=== PATIENT | female | born 1975 | race Caucasian/White ===

== ENCOUNTER 2020-06-16 16:13 | Emergency (ER) | payer MEDICAID, SELFPAY ==
[2020-06-16 17:01] VITALS: BP 143/78; PULSE 79; RESP 20; TEMP 37.1; O2SAT 98; BMI 44.8
--- NOTE | 2020-06-16 17:01 | US_ITS ---
EXAMINATION: US ABDOMEN LIMITED CLINICAL INFORMATION: Right upper quadrant pain. COMPARISON: CT abdomen pelvis 05/27/2019, 01/09/2019, 04/16/2017, 05/17/2016 along with multiple other previous study. TECHNIQUE: Real-time imaging of the right upper quadrant limited to the gallbladder and common bile duct. FINDINGS: GALLBLADDER: The patient complained of tenderness over the gallbladder during scanning. The gallbladder is physiologically distended without evidence of stones, sludge, polyps, wall thickening or pericholecystic fluid. COMMON BILE DUCT: Normal in caliber measuring 0.3 cm in diameter. FREE FLUID: None. US/US abdomen limited IMPRESSION: Normal-appearing gallbladder and common bile duct. The patient did complain of tenderness over the gallbladder during scanning.
--- NOTE | 2020-06-16 17:01 | ED.ABDPAIN ---
HPI - Abdominal Pain General Chief Complaint: Abdominal Pain Stated Complaint: abd pain Time Seen by Provider: 06/16/20 16:55 Source: patient Mode of arrival: ambulatory Limitations: no limitations History of Present Illness HPI narrative: Patient with history of gastric sleeve surgery 6 - 7 years ago no significant abdominal complaints otherwise just prior to arrival while bending she noticed pain in mid abdomen and right upper quadrant has stayed with nausea no abdominal distension no history of similar pain in the past. No flank pain no history of kidney stones no fever no chills MD elicited complaint: abdominal pain Pertinent past history: none Onset (ago): hour(s) (Few hours) Pain Consistency: constant Location: epigastric and RUQ Severity: moderate Quality: aching Radiation: RUQ Migration to: no migration Exacerbating factors: nothing Relieving factors: nothing Associated symptoms: nausea Related Data Previous Rx's Medication Instructions Recorded dicyclomine 20 mg PO QID PRN #20 tab 06/16/20 Allergies Allergy/AdvReac Type Severity Reaction Status Date / Time rizatriptan [RIZATRIPTAN] Allergy Intermediate HIVES Unverified 04/12/20 16:11 amoxicillin Allergy Unknown DIFFICULTY Unverified 04/12/20 16:11 BREATHING azithromycin Allergy Unknown DIFFICULTY Unverified 04/12/20 16:11 BREATHING clavulanic acid Allergy Unknown DIFFICULTY Unverified 04/12/20 16:11 BREATHNG hydrocodone Allergy Unknown DIFFICULTY Unverified 04/12/20 16:11 BREATHING levofloxacin Allergy Unknown AGITATION-CAN Unverified 04/12/20 16:11 TAKE IV, BUT NOT PO potassium Allergy Unknown Verified 12/03/15 00:00 sulfamethoxazole Allergy Unknown DIFFICULTY Unverified 04/12/20 16:11 BREATHING, anaphylaxis trimethoprim Allergy Unknown DIFFICULTY Unverified 04/12/20 16:11 BREATHING, anaphylaxis diphenhydramine AdvReac Unknown UNKNOWN Unverified 04/12/20 16:11 [From BENADRYL] From REGLAN Allergy Severe DYSPHORIA Uncoded 04/12/20 16:11 Amoxicillin Trihydrate Allergy Unknown Uncoded 08/18/19 00:00 Hydrocodone-Acetaminophen Allergy Unknown Uncoded 08/18/19 00:00 Hydrocodone-Ibuprofen Allergy Unknown Uncoded 12/03/15 00:00 POTASSIUM CLAVULANATE Allergy Unknown Uncoded 08/18/19 00:00 Sulfamethoxazole Allergy Unknown Uncoded 08/18/19 00:00 Review of Systems Review of Systems REVIEW OF SYSTEMS: Pertinent positives and negatives are stated above in the history. GEN: no fevers, chills, fatigue HEENT: no nasal congestion, sore throat, ear pain NEURO: no headache, dizziness, focal weakness PULM: no cough, shortness of breath CV: no chest pain, palpitations, LE edema ABD: no vomiting, diarrhea : no dysuria, urgency, frequency SKIN: no rash ROS otherwise negative x 10 Physical Exam Vital Signs: Vital Signs: Last Vital Signs Temp 98.7 F 06/16/20 17:01 Pulse 78 06/16/20 20:42 Resp 20 06/16/20 20:42 BP 128/65 06/16/20 20:42 Pulse Ox 97 06/16/20 20:42 Body Mass Index 44.8 Const: General: cooperative, healthy appearing, comfortable and no acute distress Nutritional Appearance: average body habitus Orientation/consciousness: oriented to person, oriented to place and oriented to time Limitations: no limitations HENMT: Mouth: moist mucous membranes Throat: Yes posterior oropharynx normal Eyes: Conjunctivae: conjunctivae normal Sclerae: sclerae normal Neck: Neck: Yes normal visual inspection Resp: Effort & Inspection: normal respiratory effort Auscultation: clear to auscultation bilaterally Cardio: Rate: regular rate Rhythm: regular rhythm Heart sounds: S1 normal heart sound present and S2 normal heart sound present GI: Inspection: Yes normal to inspection Palpation (GI): Soft to palpation, Firmness to palpation present (GI), Tenderness to palpation present (GI) in the epigastrum and in the RUQ and No hepatosplenomegaly present Percussion: Yes normal to percussion Auscultation: normal bowel sounds Rectal Exam - Female: deferred : General: Yes no CVA tenderness Back/Spine/Pelvis: Back: no CVA tenderness Thoracic/Lumbar Spine: thoracic and lumbar spine normal to inspection Skin: General skin exam: no rashes or lesions noted Neuro: General: oriented to person, oriented to place and oriented to time Extrem: General: Yes normal to inspection Psych: Appearance: grossly normal and well kempt MDM - Abdominal Pain MDM Narrative Medical decision making narrative: patient with upper abdominal pain ultrasound was done to rule out cholecystitis which was negative patient's labs are stable urine is negative patient feeling much better now will discharge home on Bentyl for nonspecific abdominal pain Differential Diagnosis Differential diagnosis: Likely abdominal pain, pancreatitis and small bowel obstruction Lab Data Result diagrams: 06/16/20 17:34 06/16/20 17:34 Labs: Lab Results 06/16/20 06/16/20 06/16/20 Range/Units 17:34 17:34 17:34 WBC 13.1 H (4.8-10.8) X10*3/uL RBC 4.59 (4.20-5.50) X10*6/uL Hgb 12.5 (12.0-16.0) g/dl Hct 38.1 (37-47) % MCV 83.0 (80-98) fL MCH 27.2 (27.0-33.0) pg MCHC 32.8 (31.0-35.0) g/dl RDW 13.7 (11.0-16.0) % Plt Count 308 (160-400) X10*3/uL MPV 9.0 L (9.4-12.3) fL Immature Gran % (Auto) 0.5 H (0.0-0.4) % Neut % (Auto) 74.9 H (45-73) % Lymph % (Auto) 16.6 L (20-40) % [place] % (Auto) 5.8 (2-11) % Eos % (Auto) 1.7 (0-4) % Baso % (Auto) 0.5 (0-2) % Lymph # (Auto) 2.2 (1.2-4.9) X10*3/uL [place] # (Auto) 0.8 (0.1-1.2) X10*3/uL Eos # (Auto) 0.2 (0.0-0.4) X10*3/uL Baso # (Auto) 0.1 (0.0-0.2) X10*3/uL Abs Immat Gran (auto) 0.06 H (0.00-0.03) X10*3/uL Absolute Neuts (auto) 9.8 H (2.0-8.3) X10*3/uL Absolute Nucleated RBC 0.000 (0.0-0.012) X10*3/uL Nucleated RBC % (auto) 0.0 (0.0-0.2) /100WBC Hold Blue Top SEE NOTE Sodium 136 (135-145) mmol/L Potassium 4.3 (3.3-5.1) mmol/l Chloride 104 (96-108) mmol/L Carbon Dioxide 24 (22-29) mmol/L Anion Gap 12 (12-20) BUN 11 (9-16) mg/dL Creatinine 0.56 (0.5-1.4) mg/dL Estim Creat Clear Calc 154.9 Estimated GFR > 60 Random Glucose 88 (60-115) mg/dL Calcium 8.5 (8.4-10.2) mg/dL Total Bilirubin 0.2 (0.0-1.0) mg/dL AST 16 (5-31) U/L ALT 20 (0-31) U/L Alkaline Phosphatase 61 (39-117) U/L Total Protein 6.9 (6.5-8.0) g/dL Albumin 4.0 (3.5-5.0) g/dL Lipase 14 (8-78) U/L Urine Color Urine Appearance Urine pH (5.0-8.0) Ur Specific [place] (1.005-1.025) Urine Protein (NEG-TRACE) MG/DL Urine Glucose (UA) (NEG) MG/DL Urine Ketones (NEG) MG/DL Urine Blood (NEG) Urine Nitrite (NEG) Ur Leukocyte Esterase (NEG) 06/16/20 Range/Units 19:41 WBC (4.8-10.8) X10*3/uL RBC (4.20-5.50) X10*6/uL Hgb (12.0-16.0) g/dl Hct (37-47) % MCV (80-98) fL MCH (27.0-33.0) pg MCHC (31.0-35.0) g/dl RDW (11.0-16.0) % Plt Count (160-400) X10*3/uL MPV (9.4-12.3) fL Immature Gran % (Auto) (0.0-0.4) % Neut % (Auto) (45-73) % Lymph % (Auto) (20-40) % [place] % (Auto) (2-11) % Eos % (Auto) (0-4) % Baso % (Auto) (0-2) % Lymph # (Auto) (1.2-4.9) X10*3/uL [place] # (Auto) (0.1-1.2) X10*3/uL Eos # (Auto) (0.0-0.4) X10*3/uL Baso # (Auto) (0.0-0.2) X10*3/uL Abs Immat Gran (auto) (0.00-0.03) X10*3/uL Absolute Neuts (auto) (2.0-8.3) X10*3/uL Absolute Nucleated RBC (0.0-0.012) X10*3/uL Nucleated RBC % (auto) (0.0-0.2) /100WBC Hold Blue Top Sodium (135-145) mmol/L Potassium (3.3-5.1) mmol/l Chloride (96-108) mmol/L Carbon Dioxide (22-29) mmol/L Anion Gap (12-20) BUN (9-16) mg/dL Creatinine (0.5-1.4) mg/dL Estim Creat Clear Calc Estimated GFR Random Glucose (60-115) mg/dL Calcium (8.4-10.2) mg/dL Total Bilirubin (0.0-1.0) mg/dL AST (5-31) U/L ALT (0-31) U/L Alkaline Phosphatase (39-117) U/L Total Protein (6.5-8.0) g/dL Albumin (3.5-5.0) g/dL Lipase (8-78) U/L Urine Color YELLOW Urine Appearance CLEAR Urine pH 6.5 (5.0-8.0) Ur Specific [place] 1.020 (1.005-1.025) Urine Protein NEG (NEG-TRACE) MG/DL Urine Glucose (UA) NEG (NEG) MG/DL Urine Ketones NEG (NEG) MG/DL Urine Blood NEG (NEG) Urine Nitrite NEG (NEG) Ur Leukocyte Esterase NEG (NEG) Discharge Plan Discharge Clinical Impression: Abdominal pain Qualifiers: Abdominal location: upper abdomen, unspecified Qualified Code(s): R10.10 - Upper abdominal pain, unspecified Patient Disposition: Home, Self-Care Instructions: Abdominal Pain (ED) Additional Instructions: drink plenty of fluids. take pain medication as advised Report to the ER if increase in abdominal pain/ vomiting /fever Prescriptions: New dicyclomine 20 mg tablet 20 mg PO QID PRN (Reason: abdominal pain) Qty: 20 RF: 0 Interventions: ED Discharge Assessment Last Done: 06/16/20 20:46 Discharge Date/Time: 06/16/20 20:47 [facility] Past Medical History Medical History (Updated 06/16/20 @ 20:32 by Andrea Doss MD) Asthma PCOS (polycystic ovarian syndrome) Surgical History (Updated 06/16/20 @ 17:07 by Brooke Garibay) History of laparoscopic partial gastrectomy Social History Social History Alcohol intake: never Smoking Status: Never smoker Use of substances other than those prescribed or required for medical reasons: No Advance Directives: Yes Advance Directives Information Provided: Yes Advance Directives on File: No
[2020-06-16 17:46] LABS: MANUAL DIFF FLAG NO
[2020-06-16] MEDS: 0.9 % Sodium Chloride 1,000 ML 999 ML IVCONT (17:46)
[2020-06-16 17:48] LABS: Basophils Absolute Auto 0.1 X10*3/uL (0.0-0.2); Basophils Percent Auto 0.5 % (0-2); Eosinophils Absolute Auto 0.2 X10*3/uL (0.0-0.4); Eosinophils Percent Auto 1.7 % (0-4); Hematocrit 38.1 % (37-47); Hemoglobin 12.5 g/dl (12.0-16.0); Imm Gran Abs Auto 0.06 X10*3/uL (0.00-0.03); Imm Gran Pct Auto 0.5 % (0.0-0.4); Lymphocytes Absolute Auto 2.2 X10*3/uL (1.2-4.9); Lymphocytes Percent Auto 16.6 % (20-40); Mean Corpuscular HGB Conc 32.8 g/dl (31.0-35.0); Mean Corpuscular Hemoglobin 27.2 pg (27.0-33.0); Monocytes Absolute Auto 0.8 X10*3/uL (0.1-1.2); Monocytes Percent Auto 5.8 % (2-11); Neutrophils Absolute Auto 9.8 X10*3/uL (2.0-8.3); Neutrophils Percent Auto 74.9 % (45-73); Platelet Count 308 X10*3/uL (160-400); Red Blood Count 4.59 X10*6/uL (4.20-5.50); Red Cell Distribution Width 13.7 % (11.0-16.0); White Blood Count 13.1 X10*3/uL (4.8-10.8)
[2020-06-16 18:37] VITALS: BP 135/70; PULSE 85; RESP 18; O2SAT 100
[2020-06-16] MEDS: ondansetron HCL 4 MG/2 ML VIAL IVPUSH (18:38)
[2020-06-16] MEDS: Morphine Sulfate 4 MG/ML CARTRIDGE IVPUSH (18:38)
[2020-06-16 18:41] LABS: Alanine Aminotransferase 20 U/L (0-31); Alkaline Phosphatase 61 U/L (39-117); Anion Gap 12 (12-20); Aspartate Amino Transferase 16 U/L (5-31); Bilirubin Total 0.2 mg/dL (0.0-1.0); Blood Urea Nitrogen 11 mg/dL (9-16); Calcium 8.5 mg/dL (8.4-10.2); Carbon Dioxide 24 mmol/L (22-29); Chloride 104 mmol/L (96-108); Creatinine Clr Calc Pharmacy 154.9; Estimated Glomerular Filt Rate > 60; Glucose Random 88 mg/dL (60-115); Lipase 14 U/L (8-78); Potassium 4.3 mmol/l (3.3-5.1); Sodium 136 mmol/L (135-145); Total Protein 6.9 g/dL (6.5-8.0)
[2020-06-16 19:12] VITALS: BP 125/64; PULSE 82; RESP 16; O2SAT 97
--- NOTE | 2020-06-16 19:33 | PC.NURSE ---
Report taken from Magda, jazzy RN resuming care. Pt found awake and alert, CAOx4, speaking full sentences, talking on her phone in bed. Pt ambulating to the bathroom to provide UA. [place] to monitor.
--- NOTE | 2020-06-16 19:50 | PC.NURSE ---
MD at bedside discussing results and plan of care.
[2020-06-16 20:15] LABS: Glucose Urine UA NEG (NEG); Leukocyte Esterase Urine NEG (NEG); Nitrite Urine NEG (NEG); PH 6.5 (5.0-8.0); Urine Blood NEG (NEG); Urine Ketones NEG (NEG); Urine Protein NEG (NEG-TRACE)
[2020-06-16 20:19] LABS: Appearance Urine CLEAR; Color Urine YELLOW
[2020-06-16 20:42] VITALS: BP 128/65; PULSE 78; RESP 20; O2SAT 97
== END 2020-06-16 20:47 | disposition home or self-care (01) ==
PROVIDERS: Emergency Provider Internal Medicine
DX: R10.11 Right upper quadrant pain (principal); Z98.84 Bariatric surgery status; Z79.899 Other long term (current) drug therapy
CPT/HCPCS: 36415; 76705; 80053; 81003; 83690; 85025; 96361; 96374; 96375; 99284; J2270; J2405

== ENCOUNTER 2020-07-11 11:15 | Outpatient (REF) | payer MEDICAID, SELFPAY ==
--- NOTE | 2020-07-11 | US_ITS ---
EXAMINATION: US THYROID CLINICAL INFORMATION: Nontoxic single thyroid nodule. COMPARISON: Ultrasound soft tissue head/neck thyroid dated 08/05/2016 and 02/07/2016. TECHNIQUE: Linear transducer bah-scale and color Doppler examination with attention to the region of the thyroid. FINDINGS: SIZE: Measurements of the thyroid lobes and nodules are given in sagittal, anteroposterior and transverse dimensions respectively. Right Thyroid Lobe: 5.0 x 2.6 x 2.4 cm, volume 16.4 mL. Previously 4.7 x 1.8 x 2.3 cm, volume 10.2 mL. Parenchyma: The gland echotexture is heterogeneous. Thyroid vascularity is normal. Left Thyroid Lobe: 5.6 x 2.7 x 3.1 cm, volume 24.4 mL. Previously 5.3 x 2.1 x 3.0 cm, volume 17 mL. Parenchyma: The gland echotexture is heterogeneous. Thyroid vascularity is normal. Isthmus: 1.2 cm in maximum AP dimension. Previously 1.1 cm. RIGHT THYROID LOBE: There is 1 nodule seen. 1. Location: Middle. Size: 1.4 x 1.4 x 1.1 cm. Previous: New since the previous study. Nodule characteristics: Heterogeneous, isoechoic to hyperechoic periphery and cystic center, smooth margin, no calcification and no intranodular flow. ISTHMUS: No nodules. LEFT THYROID LOBE: No nodules. NODES: No lymphadenopathy is seen in the tissue surrounding the thyroid gland. US/US thyroid IMPRESSION: Enlarged very heterogeneous thyroid gland. Comparison with previous exam from 2015 and 2016 is difficult. The previously identified bilateral inferior thyroid nodules are not appreciated. There is a newly appreciated heterogeneous nodule in the right middle lobe.
== END 2020-07-11 11:16 | disposition home or self-care (01) ==
LOC: HO.HMGCX 11:15
PROVIDERS: PCP Internal Medicine; Visit Provider Internal Medicine
DX: E04.1 Nontoxic single thyroid nodule (principal)
CPT/HCPCS: 76536

== ENCOUNTER 2020-07-24 12:03 | Outpatient (REF) | payer MEDICAID, SELFPAY ==
--- NOTE | 2020-07-24 12:09 | XR_ITS ---
EXAMINATION: LEFT FOREARM 2 VIEWS. LEFT ELBOW 3 VIEWS. CLINICAL INFORMATION: Pain left elbow and left forearm. COMPARISON: None TECHNIQUE: 3 views left elbow and 2 views left forearm. FINDINGS: LEFT ELBOW: There is no visible acute fracture, dislocation or subluxation. No loose bodies or bony erosive changes seen. The soft tissues are normal. LEFT FOREARM: There is no visible acute fracture, dislocation a bony abnormality. The soft tissues are normal. XR/XR elbow LT min 3V IMPRESSION: Unremarkable left elbow exam. Unremarkable left forearm exam.
--- NOTE | 2020-07-24 12:10 | XR_ITS ---
EXAMINATION: LEFT FOREARM 2 VIEWS. LEFT ELBOW 3 VIEWS. CLINICAL INFORMATION: Pain left elbow and left forearm. COMPARISON: None TECHNIQUE: 3 views left elbow and 2 views left forearm. FINDINGS: LEFT ELBOW: There is no visible acute fracture, dislocation or subluxation. No loose bodies or bony erosive changes seen. The soft tissues are normal. LEFT FOREARM: There is no visible acute fracture, dislocation a bony abnormality. The soft tissues are normal. XR/XR forearm LT 2V IMPRESSION: Unremarkable left elbow exam. Unremarkable left forearm exam.
== END 2020-07-24 12:04 | disposition home or self-care (01) ==
LOC: HO.XRAY 12:03
PROVIDERS: Visit Provider General Practice
DX: M25.522 Pain in left elbow (principal)
CPT/HCPCS: 73080; 73090

== ENCOUNTER 2020-09-07 11:30 | Outpatient (RCR) | payer MEDICAID, SELFPAY ==
--- NOTE | 2020-11-06 08:33 | MHC.OT.DC ---
[address] [phone] F: [phone] Occupational Therapy Discharge Note Provider: Porfirio Flowers Diagnosis: left lateral epicondylitis Date of Surgery: Date of Evaluation: 08/22/20 Date of Discharge: Treatments to Date: 6 Cancellations to Date: No Shows to Date: Discharge Status: Recommend MD Follow-up Discharge Summary: Pt REPORTS INC PAIN DUE TO BUMPING HER ELBOW. GOOD TECH WITH THER EX. . INC PAIN AFTER 5 REPS Electronically Signed By: YOUNG REDD OT CHT CLT Reviewed/agree with student documentation: N/A Therapist: Please Sign and return to therapist, thank you for your referral.
== END 2020-12-10 10:35 | disposition other institution (70) ==
LOC: HO.OT 11:30
PROVIDERS: PCP Internal Medicine; Visit Provider Internal Medicine
DX: M77.12 Lateral epicondylitis, left elbow (principal)
CPT/HCPCS: 97033; 97035; 97110; 97140; 97165

== ENCOUNTER 2020-11-14 10:57 | Outpatient (REF) | payer MEDICAID, SELFPAY ==
--- NOTE | ~2020-11-14 | XR_ITS ---
EXAMINATION: XR PELVIS CLINICAL INFORMATION: M54.9 - Dorsalgia, unspecified COMPARISON: 05/27/2019 TECHNIQUE: AP view of the pelvis. FINDINGS: There is minimal osteoarthritis in the hips, characterized by tiny marginal osteophytes and nonuniform joint space narrowing. Minimal osteoarthritis is also noted in the SI joints. Pubic symphysis is normal. There is facet arthropathy in the lower lumbar spine. No acute osseous injuries are identified. No fracture or malalignment. Soft tissues are unremarkable. 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 Facet arthropathy in the lower lumbar spine. No acute osseous findings in the pelvis.
[2020-11-14 12:41] LABS: MANUAL DIFF FLAG NO
[2020-11-14 12:51] LABS: Basophils Absolute Auto 0.1 X10*3/uL (0.0-0.2); Basophils Percent Auto 0.5 % (0-2); Eosinophils Absolute Auto 0.2 X10*3/uL (0.0-0.4); Hematocrit 39.1 % (37-47); Hemoglobin 12.8 g/dl (12.0-16.0); Imm Gran Abs Auto 0.03 X10*3/uL (0.00-0.03); Imm Gran Pct Auto 0.3 % (0.0-0.4); Lymphocytes Percent Auto 17.1 % (20-40); Mean Corpuscular HGB Conc 32.7 g/dl (31.0-35.0); Mean Corpuscular Hemoglobin 27.4 pg (27.0-33.0); Mean Corpuscular Volume 83.5 fL (80-98); Mean Platelet Volume 9.3 fL (9.4-12.3); Monocytes Absolute Auto 0.7 X10*3/uL (0.1-1.2); Monocytes Percent Auto 6.3 % (2-11); Neutrophils Absolute Auto 8.7 X10*3/uL (2.0-8.3); Neutrophils Percent Auto 73.8 % (45-73); Platelet Count 360 X10*3/uL (160-400); Red Blood Count 4.68 X10*6/uL (4.20-5.50); White Blood Count 11.7 X10*3/uL (4.8-10.8)
[2020-11-14 13:12] LABS: Alanine Aminotransferase 17 U/L (0-31); Albumin Level 4.3 g/dL (3.5-5.0); Alkaline Phosphatase 66 U/L (39-117); Anion Gap 16 (12-20); Aspartate Amino Transferase 12 U/L (5-31); Bilirubin Total 0.5 mg/dL (0.0-1.0); Blood Urea Nitrogen 10 mg/dL (9-16); C Reactive Protein 1.71 mg/dL (< or = 0.50); Calcium 9.4 mg/dL (8.4-10.2); Carbon Dioxide 22 mmol/L (22-29); Chloride 104 mmol/L (96-108); Estimated Glomerular Filt Rate > 60; Glucose Random 96 mg/dL (60-115); Potassium 4.2 mmol/L (3.3-5.1); Sodium 138 mmol/L (135-145); Total Protein 7.3 g/dL (6.5-8.0)
[2020-11-14 13:45] LABS: Erythrocyte Sedimentation Rate 13 MM/HR (0-20)
[2020-11-20 14:51] LABS: HLA B27 Negative (Negative)
== END 2020-11-14 10:58 | disposition home or self-care (01) ==
LOC: HO.LAB 10:57
PROVIDERS: PCP Internal Medicine; Visit Provider Student in an Organized Health Care Education/Training Program
DX: Z79.899 Other long term (current) drug therapy (principal); M54.5 Low back pain
CPT/HCPCS: 36415; 72170; 80053; 85025; 85652; 86140; 86812; 99202

== ENCOUNTER → 2020-12-28 13:00 | Outpatient (BNVA) | payer MEDICAID, SELFPAY | PROVIDERS: PCP Internal Medicine; Visit Provider Student in an Organized Health Care Education/Training Program | DX: M54.9 Dorsalgia, unspecified (principal); E28.2 Polycystic ovarian syndrome; J45.909 Unspecified asthma, uncomplicated; Z88.1 Allergy status to other antibiotic agents; Z88.2 Allergy status to sulfonamides; Z88.8 Allergy status to other drugs, medicaments and biological substances | CPT/HCPCS: 99212 ==

== ENCOUNTER → 2021-01-23 10:53 | Outpatient (BNVA) | payer MEDICAID, SELFPAY | PROVIDERS: PCP Internal Medicine; Visit Provider Nurse Practitioner Family | DX: M47.27 Other spondylosis with radiculopathy, lumbosacral region (principal); M53.3 Sacrococcygeal disorders, not elsewhere classified | CPT/HCPCS: 99202 ==

== ENCOUNTER → 2021-03-06 11:17 | Outpatient (BNVA) | payer MEDICAID, SELFPAY | PROVIDERS: PCP Internal Medicine; Visit Provider Nurse Practitioner Family | DX: M47.27 Other spondylosis with radiculopathy, lumbosacral region (principal); M53.3 Sacrococcygeal disorders, not elsewhere classified | CPT/HCPCS: 99212 ==

== ENCOUNTER → 2021-04-03 09:07 | Outpatient (BNVA) | payer MEDICAID, SELFPAY | PROVIDERS: PCP Internal Medicine; Visit Provider Nurse Practitioner Family ==

== ENCOUNTER 2021-04-23 06:35 | Outpatient (REF) | payer MEDICAID, SELFPAY ==
--- NOTE | ~2021-04-23 | FL_ITS ---
EXAMINATION: XR FLUOROSCOPY WITH IMAGES CLINICAL INFORMATION: Sacrococcygeal disorder COMPARISON: None. TECHNIQUE: Fluoroscopy performed by Lacy Jones NP. Fluoroscopy time: 0.2 minutes DAP: 4.6 Gycm2 Images: 2 FINDINGS: Images demonstrate needle placement and contrast injection over the bilateral inferior sacroiliac joints. FL/FL guidance in treatment room IMPRESSION: Fluoroscopy guidance for bilateral sacroiliac joint injection.
== END 2021-04-23 06:36 | disposition home or self-care (01) ==
LOC: HO.RADIR 06:35
PROVIDERS: Visit Provider Anesthesiology
DX: M47.27 Other spondylosis with radiculopathy, lumbosacral region (principal); M53.3 Sacrococcygeal disorders, not elsewhere classified
CPT/HCPCS: 27096; Q9967

== ENCOUNTER → 2021-04-30 09:40 | Outpatient (BNVA) | payer MEDICAID, SELFPAY | PROVIDERS: PCP Internal Medicine; Visit Provider Nurse Practitioner Family | DX: M47.27 Other spondylosis with radiculopathy, lumbosacral region (principal); M53.3 Sacrococcygeal disorders, not elsewhere classified | CPT/HCPCS: 99212 ==

== ENCOUNTER 2021-05-10 13:15 | Outpatient (REF) | payer MEDICAID, SELFPAY ==
--- NOTE | ~2021-05-10 | XR_ITS ---
EXAMINATION: XR ELBOW, LEFT XR HAND/WRIST, LEFT CLINICAL INFORMATION: Pain. COMPARISON: Left elbow and left forearm radiographs dated 07/24/2020 TECHNIQUE: AP, lateral, and oblique views of the left elbow. AP, oblique, lateral, and scaphoid views of the left hand and wrist. FINDINGS: Left elbow: No acute fracture or dislocation. No joint space narrowing or marginal osteophytes. No osseous erosion. No abnormal soft tissue calcification. No significant elbow joint effusion. Left hand and wrist: No acute fracture or dislocation. Normal carpal alignment. No joint space narrowing or marginal osteophytes. No osseous erosion. No abnormal soft tissue calcification. XR/XR hand wrist LT IMPRESSION: Left elbow: Unremarkable examination. Left hand and wrist: Unremarkable examination.
--- NOTE | ~2021-05-10 | XR_ITS ---
EXAMINATION: XR ELBOW, LEFT XR HAND/WRIST, LEFT CLINICAL INFORMATION: Pain. COMPARISON: Left elbow and left forearm radiographs dated 07/24/2020 TECHNIQUE: AP, lateral, and oblique views of the left elbow. AP, oblique, lateral, and scaphoid views of the left hand and wrist. FINDINGS: Left elbow: No acute fracture or dislocation. No joint space narrowing or marginal osteophytes. No osseous erosion. No abnormal soft tissue calcification. No significant elbow joint effusion. Left hand and wrist: No acute fracture or dislocation. Normal carpal alignment. No joint space narrowing or marginal osteophytes. No osseous erosion. No abnormal soft tissue calcification. XR/XR elbow LT 2V IMPRESSION: Left elbow: Unremarkable examination. Left hand and wrist: Unremarkable examination.
== END 2021-05-10 13:16 | disposition home or self-care (01) ==
LOC: HO.XRAY 13:15
PROVIDERS: PCP Internal Medicine; Visit Provider Internal Medicine
DX: M79.642 Pain in left hand (principal); M25.522 Pain in left elbow
CPT/HCPCS: 73070; 73110; 73130

== ENCOUNTER → 2021-05-21 08:21 | Outpatient (BNVA) | payer MEDICAID, SELFPAY | PROVIDERS: PCP Internal Medicine; Visit Provider Nurse Practitioner Family | DX: M53.3 Sacrococcygeal disorders, not elsewhere classified (principal); E28.2 Polycystic ovarian syndrome; J45.909 Unspecified asthma, uncomplicated; Z88.1 Allergy status to other antibiotic agents; Z88.2 Allergy status to sulfonamides; Z88.8 Allergy status to other drugs, medicaments and biological substances; Z90.3 Acquired absence of stomach [part of] | CPT/HCPCS: 99212 ==

== ENCOUNTER → 2021-06-26 09:46 | Outpatient (BNVA) | payer MEDICAID, SELFPAY | PROVIDERS: PCP Internal Medicine; Visit Provider Nurse Practitioner Family ==

== ENCOUNTER 2021-09-03 11:44 | Emergency (ER) | payer MEDICAID, SELFPAY ==
--- NOTE | ~2021-09-03 | XR_ITS ---
EXAMINATION: XR SACRUM AND COCCYX CLINICAL INFORMATION: Fall. Tailbone pain. COMPARISON: Lumbosacral spine radiographs dated 09/29/2019. TECHNIQUE: 2 views of the sacrum and 2 views of the coccyx were obtained. FINDINGS: No acute fracture or subluxation. No lytic or blastic osseous lesion. No abnormal soft tissue calcification. XR/XR sacrum coccyx min 2V IMPRESSION: No acute fracture or subluxation.
--- NOTE | ~2021-09-03 | XR_ITS ---
EXAMINATION: XR HAND, RIGHT CLINICAL INFORMATION: Fall. Right hand pain. COMPARISON: Right finger radiographs dated 02/04/2020. TECHNIQUE: PA, lateral, and oblique views of the right hand. FINDINGS: The bones and soft tissues are normal. No fracture. Alignment is anatomic. Joint spaces are maintained. No erosions or soft tissue calcifications. XR/XR hand RT 2V IMPRESSION: No acute fracture or dislocation.
[2021-09-03 12:22] VITALS: BP 170/74; PULSE 76; RESP 20; TEMP 36.5; O2SAT 97; BMI 46.0
--- NOTE | 2021-09-03 14:07 | ED.FALL ---
HPI - Fall General Chief Complaint: Fall Stated Complaint: Fall Time Seen by Provider: 09/03/21 14:00 Source: patient Mode of arrival: ambulatory Limitations: no limitations History of Present Illness HPI Narrative: 46-year-old female with a past medical history of SI joint dysfunction, spondylosis of lumbosacral spine with radiculopathy, chronic back pain, asthma and PCOS with presenting to the ED with complaints of right hand 2nd digit/index finger pain and coccyx pain after she had a mechanical fall yesterday outside of her house in a driveway on ice. She fell right on her buttocks. She denies head injury loss of consciousness. She denies being on any blood thinners. She denies any headaches, dizziness, nausea/vomiting, change in vision, neck pain/stiffness, worsening back pain at this time or trauma to the back or injury, abdominal pain, weakness, paresthesia, swelling, diarrhea, constipation, or any other symptoms complaints concerns or injuries at this time. She reports she took her prescribed muscle relaxer Tizanidine which she reports is not providing no symptomatic relief. MD complaint: fall Onset (ago): day(s) (Yesterday) Fall from: standing Fall witnessed: yes, by family Place fall occurred: home (Although outside in her driveway) Loss of consciousness: none Prolonged down time: no Symptoms prior to fall: none Context: tripped/slipped Location of injury: buttocks Location of injury - extremities: right: elbow, forearm and hand Severity: moderate Quality: aching Associated symptoms (after fall): denies Related Data Home Medications Medication Instructions Recorded Confirmed cetirizine 10 mg capsule (All Day 10 mg PO DAILY PRN 11/14/20 01/23/21 Allergy (cetirizine)) cholecalciferol (vitamin D3) 125 125 mcg PO DAILY 11/14/20 01/23/21 mcg (5,000 unit) capsule ferrous sulfate 325 mg (65 mg 325 mg PO DAILY 11/14/20 01/23/21 iron) tablet lorazepam 0.5 mg tablet 0.5 mg PO DAILY PRN 11/14/20 01/23/21 vits no.126-ferrous fum tab PO DAILY tab 11/14/20 01/23/21 28 mg iron-folic acid 800 mcg tablet (Classic ) vitamin B complex (B 1 tab PO DAILY 11/14/20 01/23/21 Complex-Vitamin B12) Previous Rx's Medication Instructions Recorded dicyclomine 20 mg tablet 20 mg PO QID PRN #20 tab 06/16/20 diazepam 5 mg tablet 5 mg PO ONCE PRN #2 tab 04/03/21 tizanidine 2 mg tablet 2 mg PO TID PRN #90 tab 06/26/21 docusate sodium 100 mg capsule 100 mg PO BID PRN #14 cap 09/03/21 (Colace) ibuprofen 800 mg tablet 800 mg PO Q8H PRN #14 tab 09/03/21 oxycodone 5 mg tablet 5 mg PO Q6H PRN #14 tab 09/03/21 Allergies Allergy/AdvReac Type Severity Reaction Status Date / Time rizatriptan [RIZATRIPTAN] Allergy Intermediate HIVES Verified 05/21/21 08:25 amoxicillin Allergy Unknown DIFFICULTY Verified 05/21/21 08:25 BREATHING azithromycin Allergy Unknown DIFFICULTY Verified 05/21/21 08:25 BREATHING clavulanic acid Allergy Unknown DIFFICULTY Verified 05/21/21 08:25 BREATHNG hydrocodone Allergy Unknown DIFFICULTY Verified 05/21/21 08:25 BREATHING levofloxacin Allergy Unknown AGITATION-CAN Verified 05/21/21 08:25 TAKE IV, BUT NOT PO potassium Allergy Unknown unknown Verified 05/21/21 08:25 sulfamethoxazole Allergy Unknown DIFFICULTY Verified 05/21/21 08:25 BREATHING, anaphylaxis trimethoprim Allergy Unknown DIFFICULTY Verified 05/21/21 08:25 BREATHING, anaphylaxis diphenhydramine AdvReac Unknown UNKNOWN Verified 05/21/21 08:25 [From BENADRYL] From REGLAN Allergy Severe DYSPHORIA Uncoded 01/23/21 11:25 Amoxicillin Trihydrate Allergy Unknown unknown Uncoded 01/23/21 11:25 Hydrocodone-Acetaminophen Allergy Unknown Unknown Uncoded 01/23/21 11:25 Hydrocodone-Ibuprofen Allergy Unknown Unknown Uncoded 01/23/21 11:25 POTASSIUM CLAVULANATE Allergy Unknown Unknown Uncoded 01/23/21 11:25 Sulfamethoxazole Allergy Unknown Unknown Uncoded 01/23/21 11:25 Review of Systems Review of Systems: Constitutional : No Weight loss, No Fever, No Chills, No Night Sweats, No Fatigue, No Malaise ENT/Mouth : No Hearing loss, No Ear Pain, No Nasal Congestion, No Sinus Pain, No Hoarseness, No sore throat, No Rhinorrhea, No Swallowing Difficulty Eyes: No Eye Pain, No Swelling, No Redness, No Foreign Body, No Discharge, No Vision Changes Cardiovascular : No Chest Pain, No SOB, No Dyspnea on Exertion, No Orthopnea, No Edema, No Palpitations Respiratory : No Cough, No Sputum, No Wheezing, No Smoke Exposure, No Dyspnea Gastrointestinal : No Nausea, No Vomiting, No Diarrhea, No Constipation, No abdominal Pain, No Hematochezia, No Melena Genitourinary : no irregular bleeding, No Dysuria, No Urinary Frequency, No Hematuria, No Urinary Incontinence, No Urgency, No Flank Pain, No Urinary Flow Changes, No Hesitancy Musculoskeletal : + coccyx and right index finger joint pain, No Myalgias, No Joint Swelling Skin : No Skin Lesions, No rash Neuro : No Weakness, No Numbness, No Paresthesias, No Loss of Consciousness, No Dizziness, No Headache Psych : No Anxiety/Panic, No Depression, No SI/HI/AH/VH, No Social Issues, Heme/Lymph: No Bruising, No Bleeding,No Lymphadenopathy Endocrine : No Polyuria, No Polydipsia, No Temperature Intolerance Yes all other systems are reviewed and are negative [facility] Past Medical History Attestation statement: The following information was validated with the patient. Medical History (Updated 09/03/21 @ 14:22 by JESSICA Roy) Asthma PCOS (polycystic ovarian syndrome) Sacroiliac joint dysfunction of right side Surgical History (Updated 11/14/20 @ 11:22 by Mervin Roy MD) History of ankle surgery History of laparoscopic partial gastrectomy Social History Social History (Updated 12/28/20 @ 13:10 by Jose Toth LPN) Alcohol intake: never Patient Tobacco Use Status: Never used Tobacco e-Cigarette/Vaping Use: Never Used Advance Directives: No Advance Directives Information Provided: Yes Physical Exam Vital Signs: Vital Signs: Last Vital Signs Temp 97.7 F 09/03/21 12:22 Pulse 76 09/03/21 12:22 Resp 20 09/03/21 12:22 BP 170/74 H 09/03/21 12:22 Pulse Ox 97 09/03/21 12:22 BMI result Body Mass Index 46.0 vital signs have been reviewed as normal and appeared to be correct. Blood pressure 170/74. Heart rate normal. Respiration rate normal. Temperature normal. Oxygen saturation normal. Appearance: Alert. Oriented X3. No acute distress. Head: Normal external exam. Normocephalic. Atraumatic. No Salas signs noted. No raccoon eyes noted Eyes: PERRLA. EOMI. Conjunctiva and sclera normal. Eyelids normal. ENT: EAC normal. TM's Normal. No septal hematoma noted. No hemotympanum noted. Pharynx normal. Uvula midline. Moist mucous membranes. No trismus noted. No drooling noted. No muffled voice noted. Neck: Normal inspection. Neck supple. FROM. No adenopathy. Thyroid Normal. No meningeal signs. No neck mass noted. Nontender. Patient has no signs of trauma. Patient is neuro intact bilaterally and distally on all 4 extremities. Reflexes intact bilaterally and distally on all 4 extremities. CVS: Normal heart rate and rhythm. Heart sound normal. Pulses normal throughout. No murmurs/rales/gallops. Respiratory: No respiratory distress. Painless inspiration. Breath sounds normal. No wheezes/rales/rhonchi noted. Chest nontender. No accessory muscle usage noted or decreased air movement noted. Abdomen: Soft and nontender. Bowel sounds normal in all 4 quadrants. No distention noted. No organomegaly noted. No visible injury noted. Back: No CVA tenderness. Full range of motion noted. Nontender. Patient has no signs of trauma. Patient is neuro intact bilaterally and distally on all 4 extremities. Reflexes intact bilaterally and distally on all 4 extremities. No rashes/lesion/induration/fluctuance or signs of infection noted. No step-offs or deformities noted. Coccyx: To the coccyx area patient has ecchymosis noted and some tenderness to palpation otherwise no obvious deformities and no abrasions/lacerations or signs of infection noted. No hematomas noted. Skin: Skin warm and dry. Normal skin color. Normal skin turgor. No rashes/lesions/lacerations noted. Extremities: Patient mild tenderness palpation to the right index finger with mild soft tissue swelling no obvious deformities and no obvious ligamentous or tendon injury noted. She does have full range of motion of right hand all fingers and wrist joint along with elbow joint. No obviously ligamentous injury noted to wrist or elbow joint. Otherwise all other extremities exhibit normal range of motion and nontender. Neuro: Oriented X 3. No motor deficit. No sensory deficit. Reflexes normal. Normal steady gait. No focal neuro deficits noted. Vascular: + radial pulses/+ 2 distal pedal pulses/+2 dorsalis pedis b/l. Normal cap refill. No cyanosis noted to upper extremity nails and lower extremity toes nails. Course Course Course Narrative: 14pm - 46-year-old female with a past medical history of SI joint dysfunction, spondylosis of lumbosacral spine with radiculopathy, chronic back pain, asthma and PCOS with presenting to the ED with complaints of right hand 2nd digit/index finger pain and coccyx pain after she had a mechanical fall yesterday outside of her house in a driveway on ice. She fell right on her buttocks. She denies head injury loss of consciousness. She denies being on any blood thinners. X-ray of hand and sacrum/coccyx obtain at this time. Will provide 100 mg of p.o. Motrin and 5 mg of p.o. oxycodone and re-evaluate. Reevaluation(s) Reevaluation #1: X-rays negative. Will DC home with symptomatic treatment instructions return if any new or worsening symptoms to follow up with primary care provider. Patient understands agrees with this plan. Time: 14:26 MDM - Fall Medical Records Attestation: I reviewed the patient's medical records. Imaging Data Right hand and coccyx/sacrum x-rays: Attestation: I personally reviewed and interpreted this imaging study as follows: Radiologist's impression: FINDINGS: No acute fracture or subluxation. No lytic or blastic osseous lesion. No abnormal soft tissue calcification. XR/XR sacrum coccyx min 2V IMPRESSION: No acute fracture or subluxation. FINDINGS: The bones and soft tissues are normal. No fracture. Alignment is anatomic. Joint spaces are maintained. No erosions or soft tissue calcifications.? XR/XR hand RT 2V IMPRESSION: No acute fracture or dislocation. Discharge Plan Discharge Clinical Impression: Fall, Sprain of hand, right, Coccyx sprain, Coccyx contusion Patient Disposition: Home, Self-Care Instructions: Sprain (ED), Contusion in Adults (ED), Fall Prevention (ED) Prescriptions: New oxycodone 5 mg tablet 5 mg PO Q6H PRN (Reason: pain) Qty: 14 0RF Rx Instructions: Patient may partially fill upon patient request docusate sodium [Colace] 100 mg capsule 100 mg PO BID PRN (Reason: Constipation) Qty: 14 0RF ibuprofen 800 mg tablet 800 mg PO Q8H PRN (Reason: pain) Qty: 14 0RF No Action dicyclomine 20 mg tablet 20 mg PO QID PRN (Reason: abdominal pain) Qty: 20 0RF lorazepam 0.5 mg tablet 0.5 mg PO DAILY PRN0RF vitamin B complex [B Complex-Vitamin B12] Tablet 1 tab PO DAILY 0RF cholecalciferol (vitamin D3) 125 mcg (5,000 unit) capsule 125 mcg PO DAILY 0RF ferrous sulfate 325 mg (65 mg iron) tablet 325 mg PO DAILY 0RF All Day Allergy (cetirizine) 10 mg capsule 10 mg PO DAILY PRN0RF Classic 28 mg iron- 800 mcg tablet PO DAILY 0RF diazepam 5 mg tablet 5 mg PO ONCE PRN (Reason: sleep) Qty: 2 0RF Rx Instructions: take 1-2 tabs, one to two hours prior to the procedure. Be sure to have someone drive you to and from the procedure, as this medication is sedating tizanidine 2 mg tablet 2 mg PO TID PRN (Reason: muscle spasticity) Qty: 90 3RF Rx Instructions: May increase to 4 mg TID if needed Referrals: Porfirio Goodman MD [Primary Care Provider] - 2 days Stand Alone Forms: Work/School Release Print Language: Ethiopian
[2021-09-03] MEDS: Ibuprofen 800 MG TABLET PO (14:32)
[2021-09-03] MEDS: oxyCODONE HCl Immed Release 5 MG TABLET PO (14:33)
== END 2021-09-03 14:37 | disposition home or self-care (01) ==
PROVIDERS: Emergency Provider Emergency Medicine; PCP Internal Medicine
DX: S63.91XA Sprain of unspecified part of right wrist and hand, initial encounter (principal); S33.8XXA Sprain of other parts of lumbar spine and pelvis, initial encounter; M53.3 Sacrococcygeal disorders, not elsewhere classified; W01.0XXA Fall on same level from slipping, tripping and stumbling without subsequent striking against object, initial encounter; Y93.9 Activity, unspecified; Y92.007 Garden or yard of unspecified non-institutional (private) residence as the place of occurrence of the external cause; Y99.9 Unspecified external cause status; Z79.899 Other long term (current) drug therapy
CPT/HCPCS: 72220; 73120; 99283; 99284

== ENCOUNTER → 2022-01-14 10:16 | Outpatient (BNVA) | payer MEDICAID, SELFPAY | PROVIDERS: PCP Internal Medicine; Visit Provider Nurse Practitioner Family | DX: M53.3 Sacrococcygeal disorders, not elsewhere classified (principal); M62.838 Other muscle spasm | CPT/HCPCS: 99212 ==

== ENCOUNTER 2022-02-06 12:16 | Outpatient (REF) | payer MEDICAID, SELFPAY ==
--- NOTE | ~2022-02-06 | XR_ITS ---
EXAMINATION: XR FOOT, RIGHT CLINICAL INFORMATION: Second toe pain. COMPARISON: None. TECHNIQUE: AP, lateral, and oblique views of the right foot. FINDINGS: There is no bony abnormality involving the 1st through 5th toes. The soft tissues are normal. The ankle mortise and subtalar joints are normal. There is a small retrocalcaneal enthesophyte. There is dorsal intertarsal spurring. XR/XR foot RT min 3V IMPRESSION: Small retrocalcaneal enthesophyte. No visible acute fracture or dislocation seen. There is minimal distal dorsal foot soft tissue swelling.
== END 2022-02-06 12:17 | disposition home or self-care (01) ==
LOC: HO.XRAY 12:16
PROVIDERS: PCP Internal Medicine; Visit Provider Internal Medicine
DX: M79.674 Pain in right toe(s) (principal)
CPT/HCPCS: 73630

== ENCOUNTER 2022-02-12 20:13 | Emergency (ER) | payer MEDICAID, SELFPAY ==
[2022-02-12 20:54] VITALS: BP 156/70; PULSE 82; RESP 18; TEMP 36.6; O2SAT 97; BMI 46.0
--- NOTE | 2022-02-13 02:23 | ED.LOWEXIN ---
HPI - Extremity Injury (Lower) General Chief Complaint: Extremity Injury, Lower Stated Complaint: foot inj Time Seen by Provider: 02/13/22 02:17 Source: patient Mode of arrival: ambulatory Limitations: no limitations History of Present Illness HPI Narrative: Patient comes to the emergency room complaining 3 weeks right-sided toe pain. Patient states that approximately 3 weeks ago she bumped her foot against her foot and then she has been having toe pain. One week ago, patient had an x-ray done, shows no bony abnormalities. Related Data Home Medications Medication Instructions Recorded Confirmed cetirizine 10 mg capsule (All Day 10 mg PO DAILY PRN 11/14/20 01/23/21 Allergy (cetirizine)) cholecalciferol (vitamin D3) 125 125 mcg PO DAILY 11/14/20 01/23/21 mcg (5,000 unit) capsule ferrous sulfate 325 mg (65 mg 325 mg PO DAILY 11/14/20 01/23/21 iron) tablet lorazepam 0.5 mg tablet 0.5 mg PO DAILY PRN 11/14/20 01/23/21 vits no.126-ferrous fum tab PO DAILY 11/14/20 01/23/21 28 mg iron-folic acid 800 mcg tablet (Classic ) vitamin B complex (B 1 tab PO DAILY 11/14/20 01/23/21 Complex-Vitamin B12 tablet) albuterol sulfate 90 mcg/actuation 2 puff PO Q4-6H PRN 01/14/22 aerosol inhaler (ProAir HFA) cholecalciferol (vitamin D3) 125 125 mcg PO DAILY 01/14/22 mcg (5,000 unit) tablet (Vitamin D3) meloxicam 15 mg tablet 15 mg PO DAILY 01/14/22 omeprazole 20 mg capsule,delayed 20 mg PO DAILY 01/14/22 release Previous Rx's Medication Instructions Recorded dicyclomine 20 mg tablet 20 mg PO QID PRN abdominal pain 06/16/20 #20 tabs diazepam 5 mg tablet 5 mg PO ONCE PRN sleep #2 tabs 04/03/21 docusate sodium 100 mg capsule 100 mg PO BID PRN Constipation #14 09/03/21 (Colace) caps ibuprofen 800 mg tablet 800 mg PO Q8H PRN pain #14 tabs 09/03/21 methocarbamol 750 mg tablet 750 mg PO QID PRN muscle 01/20/22 spasticity 30 days #120 tabs ibuprofen 600 mg tablet 600 mg PO TID PRN pain #14 tabs 02/13/22 Allergies Allergy/AdvReac Type Severity Reaction Status Date / Time rizatriptan [RIZATRIPTAN] Allergy Intermediate HIVES Verified 01/14/22 10:23 amoxicillin Allergy Unknown DIFFICULTY Verified 01/14/22 10:23 BREATHING azithromycin Allergy Unknown DIFFICULTY Verified 01/14/22 10:23 BREATHING clavulanic acid Allergy Unknown DIFFICULTY Verified 01/14/22 10:23 BREATHNG hydrocodone Allergy Unknown DIFFICULTY Verified 01/14/22 10:23 BREATHING levofloxacin Allergy Unknown AGITATION-CAN Verified 01/14/22 10:23 TAKE IV, BUT NOT PO potassium Allergy Unknown unknown Verified 01/14/22 10:23 sulfamethoxazole Allergy Unknown DIFFICULTY Verified 01/14/22 10:23 BREATHING, anaphylaxis trimethoprim Allergy Unknown DIFFICULTY Verified 01/14/22 10:23 BREATHING, anaphylaxis diphenhydramine AdvReac Unknown UNKNOWN Verified 01/14/22 10:23 [From BENADRYL] From REGLAN Allergy Severe DYSPHORIA Uncoded 01/23/21 11:25 Amoxicillin Trihydrate Allergy Unknown unknown Uncoded 01/23/21 11:25 Hydrocodone-Acetaminophen Allergy Unknown Unknown Uncoded 01/23/21 11:25 Hydrocodone-Ibuprofen Allergy Unknown Unknown Uncoded 01/23/21 11:25 POTASSIUM CLAVULANATE Allergy Unknown Unknown Uncoded 01/23/21 11:25 Sulfamethoxazole Allergy Unknown Unknown Uncoded 01/23/21 11:25 Review of Systems Review of Systems: Constitutional : No Weight loss, No Fever, No Chills, No Night Sweats, No Fatigue, No Malaise ENT/Mouth : No Hearing loss, No Ear Pain, No Nasal Congestion, No Sinus Pain, No Hoarseness, No sore throat, No Rhinorrhea, No Swallowing Difficulty Eyes: No Eye Pain, No Swelling, No Redness, No Foreign Body, No Discharge, No Vision Changes Cardiovascular : No Chest Pain, No SOB, No Dyspnea on Exertion, No Orthopnea, No Edema, No Palpitations Respiratory : No Cough, No Sputum, No Wheezing, No Smoke Exposure, No Dyspnea Gastrointestinal : No Nausea, No Vomiting, No Diarrhea, No Constipation, No abdominal Pain, No Hematochezia, No Melena Genitourinary : no irregular bleeding, No Dysuria, No Urinary Frequency, No Hematuria, No Urinary Incontinence, No Urgency, No Flank Pain, No Urinary Flow Changes, No Hesitancy Musculoskeletal : No joint pain, No Myalgias, No Joint Swelling, complaining of right toe pain Skin : No Skin Lesions, No rash Neuro : No Weakness, No Numbness, No Paresthesias, No Loss of Consciousness, No Dizziness, No Headache Psych : No Anxiety/Panic, No Depression, No SI/HI/AH/VH, No Social Issues, Heme/Lymph: No Bruising, No Bleeding,No Lymphadenopathy Endocrine : No Polyuria, No Polydipsia, No Temperature Intolerance COUNT INCLUDES THE [facility] Past Medical History Medical History Asthma PCOS (polycystic ovarian syndrome) Sacroiliac joint dysfunction of right side Surgical History History of ankle surgery History of laparoscopic partial gastrectomy Social History Social History (Updated 12/28/20 @ 13:10 by Jose Toth LPN) Alcohol intake: never Patient Tobacco Use Status: Never used Tobacco e-Cigarette/Vaping Use: Never Used Advance Directives: No Physical Exam Vital Signs: Vital Signs: Last Vital Signs Temp 97.9 F 02/12/22 20:54 Pulse 82 02/12/22 20:54 Resp 18 02/12/22 20:54 BP 156/70 H 02/12/22 20:54 Pulse Ox 97 02/12/22 20:54 O2 Del Method 02/12/22 20:54 BMI result Body Mass Index 46.0 Const: Other: Appearance: Alert. Oriented X3. No acute distress. Eyes: Pupils equal, round and reactive to light. ENT: Pharynx normal. Neck: Normal inspection. Neck supple. No lymph nodes noted. No crepitus CVS: Normal heart rate and rhythm. Pulses normal. Normal S1 and S2 Respiratory: No respiratory distress. Breath sounds normal. No Wheezing. No rales Abdomen: Soft and nontender. No rigidity. No distention. Skin: Skin warm and dry. Normal skin color. Normal skin turgor. Extremities: No lower extremity edema. No Lacerations. No Rash. Toes look within normal limits, normal size, normal color Neuro: Oriented X 3. No motor deficit. No sensory deficit. Moving all extremities. No slurred speech. CN 2 through 12 grossly intact Psych: calm, cooperative, normal affect Course Course Course Narrative: I discussed the x-ray findings with the patient, no acute bony findings. MDM - Extremity Injury (Lower) Imaging Data Toe pain: Radiologist's impression: FINDINGS: There is no bony abnormality involving the 1st through 5th toes. The soft tissues are normal. The ankle mortise and subtalar joints are normal. There is a small retrocalcaneal enthesophyte. There is dorsal intertarsal spurring.? XR/XR foot RT min 3V IMPRESSION: Small retrocalcaneal enthesophyte. No visible acute fracture or dislocation seen. There is minimal distal dorsal foot soft tissue swelling. Discharge Plan Discharge Clinical Impression: Contusion, toe Patient Disposition: Home, Self-Care Instructions: Foot Contusion (ED) Additional Instructions: Please follow-up with your primary care physician tomorrow. If you have any worsening or new symptoms, please return to the emergency room or call 911 Prescriptions: New ibuprofen 600 mg tablet 600 mg PO TID PRN (Reason: pain) Qty: 14 0RF No Action methocarbamol 750 mg tablet 750 mg PO QID PRN (Reason: muscle spasticity) 30 Days Qty: 120 0RF dicyclomine 20 mg tablet 20 mg PO QID PRN (Reason: abdominal pain) Qty: 20 0RF docusate sodium [Colace] 100 mg capsule 100 mg PO BID PRN (Reason: Constipation) Qty: 14 0RF ibuprofen 800 mg tablet 800 mg PO Q8H PRN (Reason: pain) Qty: 14 0RF lorazepam 0.5 mg tablet 0.5 mg PO DAILY PRN vitamin B complex [B Complex-Vitamin B12] Tablet 1 tab PO DAILY cholecalciferol (vitamin D3) 125 mcg (5,000 unit) capsule 125 mcg PO DAILY ferrous sulfate 325 mg (65 mg iron) tablet 325 mg PO DAILY All Day Allergy (cetirizine) 10 mg capsule 10 mg PO DAILY PRN Classic 28 mg iron- 800 mcg tablet PO DAILY diazepam 5 mg tablet 5 mg PO ONCE PRN (Reason: sleep) Qty: 2 0RF Rx Instructions: take 1-2 tabs, one to two hours prior to the procedure. Be sure to have someone drive you to and from the procedure, as this medication is sedating albuterol sulfate [ProAir HFA] 90 mcg/actuation HFA aerosol inhaler 2 puff PO Q4-6H PRN omeprazole 20 mg capsule,delayed release(DR/EC) 20 mg PO DAILY meloxicam 15 mg tablet 15 mg PO DAILY cholecalciferol (vitamin D3) [Vitamin D3] 125 mcg (5,000 unit) tablet 125 mcg PO DAILY
== END 2022-02-13 02:56 | disposition home or self-care (01) ==
PROVIDERS: Emergency Provider Emergency Medicine
DX: S90.121A Contusion of right lesser toe(s) without damage to nail, initial encounter (principal); W51.XXXA Accidental striking against or bumped into by another person, initial encounter; Y93.9 Activity, unspecified; Y92.9 Unspecified place or not applicable; Y99.9 Unspecified external cause status
CPT/HCPCS: 99283; 99284

== ENCOUNTER 2022-02-19 01:43 | Emergency (ER) | payer MEDICAID, SELFPAY ==
--- NOTE | ~2022-02-19 | XR_ITS ---
EXAMINATION: XR CHEST CLINICAL INFORMATION: Cough. COMPARISON: 11/27/2017 chest radiographs. TECHNIQUE: Frontal view of the chest was obtained. FINDINGS: The lungs are clear. Incidental azygos fissure. The heart and mediastinal structures are unremarkable. XR/XR chest 1V IMPRESSION: No acute cardiopulmonary process.
[2022-02-19 02:04] VITALS: BP 188/97; PULSE 87; TEMP 36.3; O2SAT 97; BMI 47.0
[2022-02-19 02:22] LABS: MANUAL DIFF FLAG NO
[2022-02-19 02:23] LABS: Basophils Absolute Auto 0.1 X10*3/uL (0.0-0.2); Basophils Percent Auto 0.5 % (0-2); Eosinophils Absolute Auto 0.3 X10*3/uL (0.0-0.4); Eosinophils Percent Auto 2.3 % (0-4); Hematocrit 34.9 % (37.0-47.0); Hemoglobin 11.2 g/dl (12.0-16.0); Imm Gran Abs Auto 0.06 X10*3/uL (0.00-0.03); Imm Gran Pct Auto 0.4 % (0.0-0.4); Lymphocytes Absolute Auto 2.3 X10*3/uL (1.2-4.9); Lymphocytes Percent Auto 15.9 % (20-40); Mean Corpuscular HGB Conc 32.1 g/dl (31.0-35.0); Mean Corpuscular Hemoglobin 25.7 pg (27.0-33.0); Mean Corpuscular Volume 80.2 fL (80.0-98.0); Mean Platelet Volume 8.8 fL (9.4-12.3); Monocytes Absolute Auto 0.8 X10*3/uL (0.1-1.2); Monocytes Percent Auto 5.5 % (2-11); Neutrophils Percent Auto 75.4 % (45-73); Platelet Count 348 X10*3/uL (160-400); Red Blood Count 4.35 X10*6/uL (4.20-5.50); Red Cell Distribution Width 13.6 % (11.0-16.0); White Blood Count 14.6 X10*3/uL (4.8-10.8)
[2022-02-19 02:53] LABS: Anion Gap 13 (12-20); Blood Urea Nitrogen 14 mg/dL (9-16); Calcium 8.8 mg/dL (8.4-10.2); Carbon Dioxide 23 mmol/L (22-29); Chloride 109 mmol/L (96-108); Creatinine Clr Calc Pharmacy 135.9; Estimated Glomerular Filt Rate > 60; Glucose Random 137 mg/dL (60-115); Potassium 3.7 mmol/L (3.3-5.1); Sodium 141 mmol/L (135-145)
[2022-02-19 06:04] VITALS: BP 160/73; PULSE 88; TEMP 37.1; O2SAT 96
--- NOTE | 2022-02-19 08:33 | ED_ITS ---
HPI - Nausea/Vomiting/Diarrhea General Chief complaint: Nausea/Vomiting/Diarrhea Stated complaint: cough, vomitting Time Seen by Provider: 02/19/22 08:06 Source: patient Mode of arrival: ambulatory History of Present Illness HPI Narrative: 46-year-old female with a past medical history of asthma PCOS, gastric sleeve '15, presenting to the ED complaining dry cough, sore throat, nausea, emesis, myalgias/fatigue since yesterday. Admits neighbor tested positive for COVID-19 yesterday. Reports 1 episode of bloody streaked emesis which patient suspects from hx gastric sleeve. Denies fever, ear pain, CP, SOB, abdominal pain, diarrhea, pedal edema, recent travel MD elicited complaint: nausea and vomiting Onset (ago): day(s) Related Data Home Medications Medication Instructions Recorded Confirmed cetirizine 10 mg capsule (All Day 10 mg PO DAILY PRN 11/14/20 01/23/21 Allergy (cetirizine)) cholecalciferol (vitamin D3) 125 125 mcg PO DAILY 11/14/20 01/23/21 mcg (5,000 unit) capsule ferrous sulfate 325 mg (65 mg 325 mg PO DAILY 11/14/20 01/23/21 iron) tablet lorazepam 0.5 mg tablet 0.5 mg PO DAILY PRN 11/14/20 01/23/21 vits no.126-ferrous fum tab PO DAILY 11/14/20 01/23/21 28 mg iron-folic acid 800 mcg tablet (Classic ) vitamin B complex (B 1 tab PO DAILY 11/14/20 01/23/21 Complex-Vitamin B12 tablet) albuterol sulfate 90 mcg/actuation 2 puff PO Q4-6H PRN 01/14/22 aerosol inhaler (ProAir HFA) cholecalciferol (vitamin D3) 125 125 mcg PO DAILY 01/14/22 mcg (5,000 unit) tablet (Vitamin D3) meloxicam 15 mg tablet 15 mg PO DAILY 01/14/22 omeprazole 20 mg capsule,delayed 20 mg PO DAILY 01/14/22 release Previous Rx's Medication Instructions Recorded dicyclomine 20 mg tablet 20 mg PO QID PRN abdominal pain 06/16/20 #20 tabs diazepam 5 mg tablet 5 mg PO ONCE PRN sleep #2 tabs 09/08/21 docusate sodium 100 mg capsule 100 mg PO BID PRN Constipation #14 09/03/21 (Colace) caps ibuprofen 800 mg tablet 800 mg PO Q8H PRN pain #14 tabs 09/03/21 methocarbamol 750 mg tablet 750 mg PO QID PRN muscle 01/20/22 spasticity 30 days #120 tabs ibuprofen 600 mg tablet 600 mg PO TID PRN pain #14 tabs 02/13/22 Allergies Allergy/AdvReac Type Severity Reaction Status Date / Time rizatriptan [RIZATRIPTAN] Allergy Intermediate HIVES Verified 02/19/22 02:08 amoxicillin Allergy Unknown DIFFICULTY Verified 02/19/22 02:08 BREATHING azithromycin Allergy Unknown DIFFICULTY Verified 02/19/22 02:08 BREATHING clavulanic acid Allergy Unknown DIFFICULTY Verified 02/19/22 02:08 BREATHNG hydrocodone Allergy Unknown DIFFICULTY Verified 02/19/22 02:08 BREATHING levofloxacin Allergy Unknown AGITATION-CAN Verified 02/19/22 02:08 TAKE IV, BUT NOT PO potassium Allergy Unknown unknown Verified 02/19/22 02:08 sulfamethoxazole Allergy Unknown DIFFICULTY Verified 02/19/22 02:08 BREATHING, anaphylaxis trimethoprim Allergy Unknown DIFFICULTY Verified 02/19/22 02:08 BREATHING, anaphylaxis diphenhydramine AdvReac Unknown UNKNOWN Verified 02/19/22 02:08 [From BENADRYL] From REGLAN Allergy Severe DYSPHORIA Uncoded 02/19/22 02:08 Amoxicillin Trihydrate Allergy Unknown unknown Uncoded 02/19/22 02:08 Hydrocodone-Acetaminophen Allergy Unknown Unknown Uncoded 02/19/22 02:08 Hydrocodone-Ibuprofen Allergy Unknown Unknown Uncoded 02/19/22 02:08 POTASSIUM CLAVULANATE Allergy Unknown Unknown Uncoded 02/19/22 02:08 Sulfamethoxazole Allergy Unknown Unknown Uncoded 02/19/22 02:08 Review of Systems Review of Systems: Constitutional: No Fever, No Chills, No Night Sweats, + Fatigue, + Malaise ENT/Mouth: No Hearing loss, No Ear Pain, + Nasal Congestion, No Sinus Pain, No Hoarseness, + sore throat, No Rhinorrhea, No Swallowing Difficulty Eyes: No Eye Pain, No Swelling, No Redness, No Vision Changes Cardiovascular: No Chest Pain, No SOB, No Dyspnea on Exertion, No Orthopnea, No Edema, No Palpitations Respiratory: + Cough, No Sputum, No Wheezing, No Dyspnea Gastrointestinal: + Nausea, + Vomiting, No Diarrhea, No Constipation, No Abdominal pain Genitourinary: No Dysuria, No Urinary Frequency, No Hematuria, No Flank Pain, No Urinary Flow Changes, No Hesitancy Musculoskeletal: No joint pain, No Myalgias, No Joint Swelling Skin: No Skin Lesions, No rash Neuro: No Weakness, No Numbness, No Paresthesias, No Loss of Consciousness, No Dizziness, No Headache Yes all other systems are reviewed and are negative Constitutional: Constitutional: Reports as per [facility] Past Medical History Attestation statement: The following information was validated with the patient. Medical History Asthma PCOS (polycystic ovarian syndrome) Sacroiliac joint dysfunction of right side Surgical History History of ankle surgery History of laparoscopic partial gastrectomy Social History Social History (Updated 12/28/20 @ 13:10 by Jose Toth LPN) Alcohol intake: never Patient Tobacco Use Status: Never used Tobacco e-Cigarette/Vaping Use: Never Used Advance Directives: No Advance Directives Information Provided: Yes Physical Exam Vital Signs: Vital Signs: Last Vital Signs Temp 98.7 F 02/19/22 06:04 Pulse 88 02/19/22 06:04 BP 160/73 H 02/19/22 06:04 Pulse Ox 96 02/19/22 06:04 O2 Del Method 02/19/22 06:04 BMI result Body Mass Index 47.0 Const: General: cooperative, healthy appearing, no acute distress, alert and awake Orientation/consciousness: patient oriented x3 Limitations: no limitations HEENT: Head: Yes normal to inspection and Yes atraumatic Ears: hearing grossly normal bilaterally, external ears normal, TM's normal bilaterally and mastoids normal General nose exam: Normal external nose present Face and sinus: Yes normal facial exam Mouth: Normal oral and palatal mucosa present Throat: Yes posterior oropharynx normal, Yes tonsils normal, Yes uvula midline and No uvular edema Eyes: General: appearance normal, both eyes and all related structures EOM: EOMs intact bilaterally Neck: Neck: Yes normal visual inspection and Yes no meningeal signs Resp: Effort & Inspection: normal respiratory effort and no respiratory distress Auscultation: clear to auscultation bilaterally, no crackles, no rales, no rhonchi and no wheezes Cardio: Rate: regular rate Heart sounds: S1 normal heart sound present and S2 normal heart sound present GI: Inspection: Yes normal to inspection Palpation (GI): Soft to palpation, nontender, no guarding and not rigid : General: Yes no CVA tenderness Back/Spine/Pelvis: Back: no CVA tenderness Skin: Rashes: no rashes Wounds: no wounds Neuro: General: patient oriented x3, tone normal and no meningeal signs Gait exam (Neuro): Normal gait present Extrem: General: Yes normal to inspection, Yes no pedal edema and Yes no calf tenderness Course Course Course Narrative: -1023--mild leukocytosis of 14.6 likely reactive for nausea/vomiting. H&H chronically low. Labs otherwise unremarkable -patient is COVID-19 positive XR chest 1V IMPRESSION: No acute cardiopulmonary process. ? Results discussed with patient, discussed Paxil bid or medical antibody referral which patient was not agreeable to. Discussed worrisome signs and symptoms and strict return precautions, and when to return to the emergency department. They verbalized understanding and feel safe for discharge at this time. MDM - Nausea/Vomiting/Diarrhea MDM Narrative Medical decision making narrative: 46-year-old female with a past medical history of asthma PCOS, gastric sleeve '15, presenting to the ED complaining dry cough, sore throat, nausea, emesis, myalgias/fatigue since yesterday. On exam vital signs stable, NAD, nontoxic appearing CTA, abdomen soft and nontender. If concern for viral illness vs gastroenteritis vs bronchitis. Rule out pneumonia. Lower suspicion for ACS, Ened[place]-Mondragon, GI bleed, or PE Plan: Labs, CXR, COVID-19 testing, IVF, p.o. challenge Differential Diagnosis Differential diagnosis: Likely food poisoning, gastroenteritis and dehydration Medical Records Attestation: I reviewed the patient's medical records. Lab Data Attestation: I reviewed the patient's lab results. Result diagrams: 02/19/22 02:18 02/19/22 02:18 Labs: Lab Results 02/19/22 02/19/22 02/19/22 Range/Units 02:18 02:18 09:08 WBC 14.6 H (4.8-10.8) X10*3/uL RBC 4.35 (4.20-5.50) X10*6/uL Hgb 11.2 L (12.0-16.0) g/dl Hct 34.9 L (37.0-47.0) % MCV 80.2 (80.0-98.0) fL MCH 25.7 L (27.0-33.0) pg MCHC 32.1 (31.0-35.0) g/dl RDW 13.6 (11.0-16.0) % Plt Count 348 (160-400) X10*3/uL MPV 8.8 L (9.4-12.3) fL Immature Gran % (Auto) 0.4 (0.0-0.4) % Neut % (Auto) 75.4 H (45-73) % Lymph % (Auto) 15.9 L (20-40) % Pike % (Auto) 5.5 (2-11) % Eos % (Auto) 2.3 (0-4) % Baso % (Auto) 0.5 (0-2) % Lymph # (Auto) 2.3 (1.2-4.9) X10*3/uL Pike # (Auto) 0.8 (0.1-1.2) X10*3/uL Eos # (Auto) 0.3 (0.0-0.4) X10*3/uL Baso # (Auto) 0.1 (0.0-0.2) X10*3/uL Abs Immat Gran (auto) 0.06 H (0.00-0.03) X10*3/uL Absolute Neuts (auto) 11.0 H (2.0-8.3) x10*3/uL Absolute Nucleated RBC 0.000 (0.0-0.012) X10*3/uL Nucleated RBC % (auto) 0.0 (0.0-0.2) /100WBC Sodium 141 (135-145) mmol/L Potassium 3.7 (3.3-5.1) mmol/L Chloride 109 H (96-108) mmol/L Carbon Dioxide 23 (22-29) mmol/L Anion Gap 13 (12-20) BUN 14 (9-16) mg/dL Creatinine 0.65 (0.5-1.4) mg/dL Estim Creat Clear Calc 135.9 Estimated GFR > 60 Random Glucose 137 H (60-115) mg/dL Calcium 8.8 D (8.4-10.2) mg/dL Magnesium 1.9 (1.6-2.6) mg/dL Total Bilirubin < 0.2 (0.0-1.0) mg/dL Direct Bilirubin < 0.2 (0.0-0.5) mg/dL AST 10 (5-31) U/L ALT 15 (0-31) U/L Alkaline Phosphatase 77 (39-117) U/L Total Protein 6.8 (6.5-8.0) g/dL Albumin 4.0 (3.5-5.0) g/dL Lipase 15 (8-78) U/L COVID-19 (KEO) Positive A (Negative) COVID-19 Clin Com See Note Discharge Plan Discharge Clinical Impression: COVID-19 Patient Disposition: Home, Self-Care Instructions: COVID-19 (Coronavirus Disease 2019) (ED) Additional Instructions: At this time you will be okay for discharge. Please self isolate for 10-14 days. Do not expose yourself to others. You may not go to work or school. Please continue to follow cold instructions and wash your hands frequently. You may take Tylenol / Motrin as directed on the bottle for pain or fever. If you have constant or persistent shortness of breath, fever unresolved with medications, chest pain, or your unable to eat or drink please return to the ED CDC Guidelines for home isolation: - Stay away from others - WEAR A MASK if you are sick AND STAY HOME - Cover your mouth and nose with a tissue when you cough or sneeze. Dispose of t issues in a lined trash can and wash your hands immediately with soap and water for at least 20 seconds. If soap and water are not available, clean hands with alcohol-based hand railcar mechanic that contains at least 60% alcohol. - Clean your hands often with soap and water for at least 20 seconds - Avoid touching your eyes, nose and mouth with unwashed hands - Do not share dishes, drinking glasses, cups, eating utensils, towels, or bedding with other people in your home. After using these items, wash them thoroughly with soap and water or put in the radial drill press operator for plastic. - Clean high-touch surfaces in your isolation area ( sick room and bathroom) every day; let a caregiver clean and disinfect high-touch surfaces in other areas of the home. Clean the area or item with soap and water or another deterg ent if it is dirty. Then, use a household disinfectant. - Limit contact with pets and animals: If you must care for a pet, wash your hands before and after interacting with them) Prescriptions: No Action methocarbamol 750 mg tablet 750 mg PO QID PRN (Reason: muscle spasticity) 30 Days Qty: 120 0RF dicyclomine 20 mg tablet 20 mg PO QID PRN (Reason: abdominal pain) Qty: 20 0RF docusate sodium [Colace] 100 mg capsule 100 mg PO BID PRN (Reason: Constipation) Qty: 14 0RF ibuprofen 800 mg tablet 800 mg PO Q8H PRN (Reason: pain) Qty: 14 0RF ibuprofen 600 mg tablet 600 mg PO TID PRN (Reason: pain) Qty: 14 0RF lorazepam 0.5 mg tablet 0.5 mg PO DAILY PRN vitamin B complex [B Complex-Vitamin B12] Tablet 1 tab PO DAILY cholecalciferol (vitamin D3) 125 mcg (5,000 unit) capsule 125 mcg PO DAILY ferrous sulfate 325 mg (65 mg iron) tablet 325 mg PO DAILY All Day Allergy (cetirizine) 10 mg capsule 10 mg PO DAILY PRN Classic 28 mg iron- 800 mcg tablet PO DAILY diazepam 5 mg tablet 5 mg PO ONCE PRN (Reason: sleep) Qty: 2 0RF Rx Instructions: take 1-2 tabs, one to two hours prior to the procedure. Be sure to have someone drive you to and from the procedure, as this medication is sedating albuterol sulfate [ProAir HFA] 90 mcg/actuation HFA aerosol inhaler 2 puff PO Q4-6H PRN omeprazole 20 mg capsule,delayed release(DR/EC) 20 mg PO DAILY meloxicam 15 mg tablet 15 mg PO DAILY cholecalciferol (vitamin D3) [Vitamin D3] 125 mcg (5,000 unit) tablet 125 mcg PO DAILY Referrals: Physician,Unknown J [Primary Care Provider] - Stand Alone Forms: Work/School Release
[2022-02-19] MEDS: ondansetron HCL 4 MG/2 ML VIAL IVPUSH (09:20)
[2022-02-19] MEDS: 0.9 % Sodium Chloride 1,000 ML 999 ML IV (09:20)
[2022-02-19 09:23] LABS: COVID-19 Test Positive (Negative); IDNOW Serial# 16C4AD1C
[2022-02-19 09:36] LABS: Alanine Aminotransferase 15 U/L (0-31); Alkaline Phosphatase 77 U/L (39-117); Aspartate Amino Transferase 10 U/L (5-31); Lipase 15 U/L (8-78); Magnesium 1.9 mg/dL (1.6-2.6); Total Protein 6.8 g/dL (6.5-8.0)
[2022-02-19 10:03] LABS: Bilirubin Direct < 0.2 mg/dL (0.0-0.5); Bilirubin Total < 0.2 mg/dL (0.0-1.0)
== END 2022-02-19 11:04 | disposition home or self-care (01) ==
PROVIDERS: Physician Assistant; Emergency Provider Emergency Medicine
DX: U07.1 COVID-19 (principal); R11.2 Nausea with vomiting, unspecified; D72.829 Elevated white blood cell count, unspecified; J45.909 Unspecified asthma, uncomplicated; Z90.3 Acquired absence of stomach [part of]; Z79.899 Other long term (current) drug therapy
CPT/HCPCS: 36415; 71045; 80048; 80076; 83690; 83735; 85025; 87635; 96361; 96374; 99283; 99284; J2405

== ENCOUNTER 2022-04-21 12:03 | Outpatient (REF) | payer MEDICAID, SELFPAY ==
--- NOTE | ~2022-04-21 | XR_ITS ---
EXAMINATION: XR cervical spine 4V CLINICAL INFORMATION: Pain COMPARISON: Cervical spine radiographs 09/29/2019 TECHNIQUE: 5 views of the cervical spine were obtained. FINDINGS: The cervical spine is visualized to the level of C5-C6 on the lateral view. Vertebral body alignment is maintained. Vertebral body heights are maintained. Lateral masses of C1 are well aligned on C2. Visualized portion of the dens is intact. Disc space heights are maintained. No significant neural foraminal narrowing. No prevertebral soft tissue swelling. XR/XR cervical spine 4V IMPRESSION: * No significant degenerative disc disease.
== END 2022-04-21 12:04 | disposition home or self-care (01) ==
LOC: HO.XRAY 12:03
PROVIDERS: Absent Provider Internal Medicine; PCP Internal Medicine; Visit Provider Internal Medicine
DX: M54.2 Cervicalgia (principal)
CPT/HCPCS: 72050

== ENCOUNTER → 2022-04-23 10:18 | Outpatient (BNVA) | payer MEDICAID, SELFPAY | PROVIDERS: PCP Internal Medicine; Visit Provider Nurse Practitioner Family | DX: Z01.818 Encounter for other preprocedural examination (principal); K21.9 Gastro-esophageal reflux disease without esophagitis; K58.2 Mixed irritable bowel syndrome | CPT/HCPCS: 83013; 99202 ==

== ENCOUNTER 2022-04-23 15:43 | Outpatient (REF) | payer MEDICAID, SELFPAY ==
[2022-04-25 13:42] LABS: H Pylori Breath Test Negative (Negative)
== END 2022-04-23 15:44 | disposition home or self-care (01) ==
LOC: HO.LNP 15:43
PROVIDERS: Visit Provider Nurse Practitioner Family
DX: Z01.818 Encounter for other preprocedural examination (principal)
CPT/HCPCS: 83013

== ENCOUNTER 2022-04-23 18:46 | Emergency (ER) | payer MEDICAID, SELFPAY ==
--- NOTE | ~2022-04-23 | CT_ITS ---
EXAMINATION: CT HEAD WITHOUT CONTRAST CLINICAL INFORMATION: Headache COMPARISON: 01/01/2016 TECHNIQUE: Contiguous axial imaging was performed from the skull base to vertex without intravenous contrast. This CT examination was performed using dose optimization techniques as appropriate, variously including the following: * Automated exposure control * Adjustment of mA and/or kV according to patient size (this includes techniques or standardized protocols for targeted exams where dose is matched to indication/reason for exam; i.e. extremities or head) Use of iterative reconstruction technique DLP: 695 mGy-cm. FINDINGS: There is no evidence of acute intracranial hemorrhage or territorial infarction. No abnormal mass effect or midline shift is seen. Johnson to white matter differentiation is well preserved. No extra-axial fluid collections are identified. No hydrocephalus. No significant volume loss. There is no abnormal attenuation within the brain parenchyma. The osseous structures and soft tissues are normal. The mastoid air cells and visualized portions of the paranasal sinuses are well aerated. CT/CT head/brain wo IV con IMPRESSION: No acute intracranial pathology.
[2022-04-23 22:04] VITALS: BP 145/85; PULSE 77; RESP 18; TEMP 36.2; O2SAT 97; BMI 46.9
[2022-04-24 01:23] VITALS: BP 161/86; PULSE 70; RESP 20; TEMP 36.7; O2SAT 99
[2022-04-24 03:12] VITALS: BP 144/73; PULSE 78; RESP 16; TEMP 35.6; O2SAT 99
--- NOTE | 2022-04-24 06:37 | ED_ITS ---
HPI - Headache General Chief Complaint: Headache Stated Complaint: fall 3weeks , head and neck pain Time Seen by Provider: 04/24/22 06:37 Source: patient Mode of arrival: ambulatory Limitations: no limitations History of Present Illness HPI Narrative: 47 yo female with hx of migraines, prolonged qtc, asthma here with headache x 1 week mostly tension in the neck R sided occipital. Did fall 3 weeks ago. She saw her doctor who was going to prescribe celebrex but she has an allergy. At this time she has no fevers. CT head negative for ICH or trauma from triage MD elicited complaint: headache Pertinent past history: migraines Onset (ago): week(s) (1) Onset description: gradually and while at rest Location: right, occipital, neck and band-like Severity: moderate Quality & Timing: throbbing, constant and progressively worsening Exacerbating factors: movement of head/neck Relieving factors: nothing Context: occurred at rest and recent head injury Associated symptoms: nausea and other (R ear pain) Related Data Home Medications Medication Instructions Recorded Confirmed cetirizine 10 mg capsule (All Day 10 mg PO DAILY PRN 11/14/20 01/23/21 Allergy (cetirizine)) cholecalciferol (vitamin D3) 125 125 mcg PO DAILY 11/14/20 01/23/21 mcg (5,000 unit) capsule ferrous sulfate 325 mg (65 mg 325 mg PO DAILY 11/14/20 01/23/21 iron) tablet lorazepam 0.5 mg tablet 0.5 mg PO DAILY PRN 11/14/20 01/23/21 vitamin B complex (B 1 tab PO DAILY 11/14/20 01/23/21 Complex-Vitamin B12 tablet) albuterol sulfate 90 mcg/actuation 2 puff PO Q4-6H PRN 01/14/22 aerosol inhaler (ProAir HFA) cholecalciferol (vitamin D3) 125 125 mcg PO DAILY 01/14/22 mcg (5,000 unit) tablet (Vitamin D3) meloxicam 15 mg tablet 15 mg PO DAILY 01/14/22 omeprazole 20 mg capsule,delayed 20 mg PO DAILY 01/14/22 release Previous Rx's Medication Instructions Recorded dicyclomine 20 mg tablet 20 mg PO QID PRN abdominal pain 06/16/20 #20 tabs diazepam 5 mg tablet 5 mg PO ONCE PRN sleep #2 tabs 04/03/21 docusate sodium 100 mg capsule 100 mg PO BID PRN Constipation #14 09/03/21 (Colace) caps ibuprofen 800 mg tablet 800 mg PO Q8H PRN pain #14 tabs 09/03/21 methocarbamol 750 mg tablet 750 mg PO QID PRN muscle 01/20/22 spasticity 30 days #120 tabs ibuprofen 600 mg tablet 600 mg PO TID PRN pain #14 tabs 02/13/22 bisacodyl 5 mg tablet,delayed 10 mg PO BEDTIME #14 tabs 04/23/22 release iiogmoeuwo-nwkquqnzkrikz-bhxiulrc 1 tab PO Q6H PRN pain #20 tabs 04/24/22 50 mg-325 mg-40 mg tablet diazepam 5 mg tablet (Valium) 5 mg PO TID PRN muscle spasm #10 04/24/22 tabs Allergies Allergy/AdvReac Type Severity Reaction Status Date / Time rizatriptan [RIZATRIPTAN] Allergy Intermediate HIVES Verified 04/23/22 10:38 amoxicillin Allergy Unknown DIFFICULTY Verified 04/23/22 10:38 BREATHING azithromycin Allergy Unknown DIFFICULTY Verified 04/23/22 10:38 BREATHING clavulanic acid Allergy Unknown DIFFICULTY Verified 04/23/22 10:38 BREATHNG hydrocodone Allergy Unknown DIFFICULTY Verified 04/23/22 10:38 BREATHING levofloxacin Allergy Unknown AGITATION-CAN Verified 04/23/22 10:38 TAKE IV, BUT NOT PO potassium Allergy Unknown unknown Verified 04/23/22 10:38 sulfamethoxazole Allergy Unknown DIFFICULTY Verified 04/23/22 10:38 BREATHING, anaphylaxis trimethoprim Allergy Unknown DIFFICULTY Verified 04/23/22 10:38 BREATHING, anaphylaxis diphenhydramine AdvReac Unknown UNKNOWN Verified 04/23/22 10:38 [From BENADRYL] From REGLAN Allergy Severe DYSPHORIA Uncoded 02/19/22 02:08 Amoxicillin Trihydrate Allergy Unknown unknown Uncoded 02/19/22 02:08 Hydrocodone-Acetaminophen Allergy Unknown Unknown Uncoded 02/19/22 02:08 Hydrocodone-Ibuprofen Allergy Unknown Unknown Uncoded 02/19/22 02:08 POTASSIUM CLAVULANATE Allergy Unknown Unknown Uncoded 02/19/22 02:08 Sulfamethoxazole Allergy Unknown Unknown Uncoded 02/19/22 02:08 Review of Systems Review of Systems: Constitutional : No Fever, No Chills, No Fatigue ENT/Mouth : No sore throat, No Rhinorrhea Eyes: No Eye Pain, No Swelling, No Redness Cardiovascular : No Chest Pain, No SOB, No Dyspnea on Exertion Respiratory : No Cough, No Sputum Gastrointestinal : No Nausea, No Vomiting, No Diarrhea, No abdominal Pain Genitourinary : No Dysuria, No Urinary Frequency, No Hematuria, Musculoskeletal : No joint pain, No Myalgias, No Joint Swelling Skin : No Skin Lesions, No rash Neuro : No Weakness, No Numbness, No Dizziness, positive Headache Psych : No Anxiety/Panic, No Depression Heme/Lymph: No Bruising, No Bleeding,No Lymphadenopathy Endocrine : No Polyuria, No Polydipsia All other systems reviewed and are negative [facility] Past Medical History Attestation statement: The following information was validated with the patient. Medical History Asthma PCOS (polycystic ovarian syndrome) Sacroiliac joint dysfunction of right side Surgical History History of ankle surgery History of laparoscopic partial gastrectomy Social History Social History Alcohol intake: former Patient Tobacco Use Status: Never used Tobacco e-Cigarette/Vaping Use: Never Used Use of substances other than those prescribed or required for medical reasons: No Advance Directives: No Advance Directives Information Provided: No Physical Exam 2 Vital Signs: Vital Signs: Last Vital Signs Temp 96.0 F L 04/24/22 03:12 Pulse 78 04/24/22 03:12 Resp 16 04/24/22 03:12 BP 144/73 H 04/24/22 03:12 Pulse Ox 99 04/24/22 03:12 O2 Del Method 04/24/22 03:12 BMI result Body Mass Index 46.9 Appearance: Alert. Oriented X3. No acute distress. Eyes: Pupils equal, round and reactive to light. ENT: Pharynx normal. R TM clear small effusion but no erythema or bulge Neck: Normal inspection. Neck supple. no meningeal signs CVS: Normal heart rate and rhythm. Pulses normal. Respiratory: No respiratory distress. Breath sounds normal. Abdomen: Soft and nontender. Skin: Skin warm and dry. Normal skin color. Normal skin turgor. Extremities: No lower extremity edema. No calf ttp Neuro: Oriented X 3. No motor deficit. No sensory deficit. Course Course Course Narrative: feels better stable for DC MDM - Headache MDM Narrative Medical decision making narrative: 47 yo female with hx of headaches here with R sided headache x 1 week without fevers, meningeal signs and normal neuro exam - doubt SAH/ELECTRONICS [employer]IST infection. CT head normal will treat with supportive medications. Dispo per clinical improvement. Discharge Plan Discharge Clinical Impression: Headache Qualifiers: Headache type: unspecified Headache chronicity pattern: acute headache Intractability: not intractable Qualified Code(s): R51.9 - Headache, unspecified Patient Disposition: Home, Self-Care Instructions: Acute Headache (ED) Additional Instructions: return to ED for any worsening symptoms or concerns FINDINGS: There is no evidence of acute intracranial hemorrhage or territorial infarction. No abnormal mass effect or midline shift is seen. Johnson to white matter differentiation is well preserved. No extra-axial fluid collections are identified. No hydrocephalus. No significant volume loss. There is no abnormal attenuation within the brain parenchyma. The osseous structures and soft tissues are normal. The mastoid air cells and visualized portions of the paranasal sinuses are well aerated. ? CT/CT head/brain wo IV con IMPRESSION: No acute intracranial pathology. Prescriptions: New gjtbuzapyf-pridtszgolrtt-legg 50-325-40 mg tablet 1 tab PO Q6H PRN (Reason: pain) Qty: 20 0RF diazepam [Valium] 5 mg tablet 5 mg PO TID PRN (Reason: muscle spasm) Qty: 10 0RF Rx Instructions: partial fill is okay No Action methocarbamol 750 mg tablet 750 mg PO QID PRN (Reason: muscle spasticity) 30 Days Qty: 120 0RF dicyclomine 20 mg tablet 20 mg PO QID PRN (Reason: abdominal pain) Qty: 20 0RF docusate sodium [Colace] 100 mg capsule 100 mg PO BID PRN (Reason: Constipation) Qty: 14 0RF ibuprofen 800 mg tablet 800 mg PO Q8H PRN (Reason: pain) Qty: 14 0RF ibuprofen 600 mg tablet 600 mg PO TID PRN (Reason: pain) Qty: 14 0RF lorazepam 0.5 mg tablet 0.5 mg PO DAILY PRN vitamin B complex [B Complex-Vitamin B12] Tablet 1 tab PO DAILY cholecalciferol (vitamin D3) 125 mcg (5,000 unit) capsule 125 mcg PO DAILY ferrous sulfate 325 mg (65 mg iron) tablet 325 mg PO DAILY All Day Allergy (cetirizine) 10 mg capsule 10 mg PO DAILY PRN diazepam 5 mg tablet 5 mg PO ONCE PRN (Reason: sleep) Qty: 2 0RF Rx Instructions: take 1-2 tabs, one to two hours prior to the procedure. Be sure to have someone drive you to and from the procedure, as this medication is sedating bisacodyl 5 mg tablet,delayed release (DR/EC) 10 mg PO BEDTIME Qty: 14 0RF albuterol sulfate [ProAir HFA] 90 mcg/actuation HFA aerosol inhaler 2 puff PO Q4-6H PRN omeprazole 20 mg capsule,delayed release(DR/EC) 20 mg PO DAILY meloxicam 15 mg tablet 15 mg PO DAILY cholecalciferol (vitamin D3) [Vitamin D3] 125 mcg (5,000 unit) tablet 125 mcg PO DAILY
[2022-04-24] MEDS: Butalb/Acetamin/Caff 50/325/40 TABLET 1 TAB PO (07:19)
[2022-04-24] MEDS: diazePAM 2 MG TABLET 5 MG PO (07:19)
--- NOTE | 2022-04-24 08:33 | PC.NURSE ---
0800 PT AWAKE, ALERT AND ORIENTED X 3. SKIN WARM AND DRY. RESP UNLABORED. DENIES N/V. NEUROS INTACT. REPORTS FEELING BETTER AFTER MEDICATION. PLAN IS FOR DC HOME AND PT AGREEABLE TO PLAN.
== END 2022-04-24 08:10 | disposition home or self-care (01) ==
PROVIDERS: Emergency Provider Emergency Medicine; PCP Internal Medicine
DX: R51.9 Headache, unspecified (principal)
CPT/HCPCS: 70450; 99284

== ENCOUNTER → 2022-07-15 10:37 | Outpatient (BNVA) | payer MEDICAID, SELFPAY | PROVIDERS: PCP Internal Medicine; Visit Provider Nurse Practitioner Family | DX: K21.9 Gastro-esophageal reflux disease without esophagitis (principal); K58.2 Mixed irritable bowel syndrome | CPT/HCPCS: 99212 ==

== ENCOUNTER 2022-09-19 16:51 | Outpatient (REF) | payer MEDICAID, SELFPAY ==
--- NOTE | ~2022-09-19 | XR_ITS ---
EXAMINATION: XR FOOT, RIGHT CLINICAL INFORMATION: Right foot pain after trauma COMPARISON: 02/06/2022 TECHNIQUE: AP, lateral, and oblique views of the right foot. FINDINGS: No acute fracture or dislocation. Partially visualized surgical anchors of the distal fibula. Joint spaces are preserved. Achilles enthesopathy again noted. XR/XR foot RT 2V IMPRESSION: No acute fracture or dislocation.
== END 2022-09-19 16:52 | disposition home or self-care (01) ==
LOC: HO.XRAY 16:51
PROVIDERS: PCP Internal Medicine; Visit Provider Internal Medicine
DX: M79.671 Pain in right foot (principal)
CPT/HCPCS: 73620

== ENCOUNTER 2022-12-23 07:43 | Day surgery (SDC) | payer MEDICAID, SELFPAY ==
[2022-12-04 12:59] VITALS: BP 131/76; PULSE 80; RESP 16; O2SAT 97; BMI 46.9
--- NOTE | 2022-12-04 13:13 | HO.ANESPROP2 ---
Documented by User: Elisa Cho NP 12/19/22 08:44 HPI - Anesthesia Eval Consult details Narrative: 47yo F for Left Sacroiliac Joint Fusion 12/23/22 Follows cardiology for murmur, QT prolongation, PVCs. Last office visit 10/2022, started on carvedilol for palps and htn. Pt has iron infusion x 2 scheduled preop. Will get labs DOS. Chronic mildly elevated WBC PMFSH Active Problems Active Problems: All Active Problems (Updated 12/04/22 @ 12:58 by Maci Tyler RN) Back pain (Acute) Spondylosis of lumbosacral spine with radiculopathy (Acute) Sacroiliac joint pain (Acute) Preprocedural examination (Acute) SI (sacroiliac) joint dysfunction (Acute) Muscle spasm (Acute) COVID-19 (Acute) PCOS (polycystic ovarian syndrome) (Acute) Asthma (Acute) Sacroiliac joint dysfunction of right side (Acute) Past Medical History Medical History (Updated 12/08/22 @ 14:15 by Elisa Cho NP) Anemia Asthma Ear piercing Essential hypertension Leukocytosis Murmur, cardiac ALMA DELIA (obstructive sleep apnea) PCOS (polycystic ovarian syndrome) Personal history of COVID-19 Prolonged QT interval Renal cyst Sacroiliac joint dysfunction of right side Thyroid condition Surgical History Surgical History (Updated 12/04/22 @ 12:55 by Maci Tyler, AYLIN) H/O gastric sleeve History of ankle surgery History of History of laparoscopic partial gastrectomy S/P fusion of sacroiliac joint S/P left knee arthroscopy Status post arthroscopy of shoulder Social History Social History (Updated 12/04/22 @ 12:59 by Maci Tyler, AYLIN) Household Members: Spouse and Children Housing: House 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 If so, by whom?: No Are you DNR?: No Advance Directives: No Advance Directives Information Provided: Yes Advance Directives on File: No Recently lost weight without trying: No Nutrition Risks: No Nutritional Risk Patient : No : No Poor oral hygiene: No Meds Allergies Allergy/AdvReac Type Severity Reaction Status Date / Time amoxicillin Allergy Severe DIFFICULTY Verified 12/23/22 08:00 BREATHING clavulanic acid Allergy Severe DIFFICULTY Verified 12/23/22 08:00 BREATHNG nabumetone Allergy Severe Depression Verified 12/23/22 08:00 Penicillins Allergy Severe Shortness Verified 12/23/22 08:00 of Breath, itching sulfamethoxazole Allergy Severe DIFFICULTY Verified 12/23/22 08:00 BREATHING, anaphylaxis trimethoprim Allergy Severe DIFFICULTY Verified 12/23/22 08:00 BREATHING, anaphylaxis azithromycin Allergy Intermediate DIFFICULTY Verified 12/23/22 08:00 BREATHING hydrocodone Allergy Intermediate DIFFICULTY Verified 12/23/22 08:00 BREATHING levofloxacin Allergy Intermediate AGITATION-CAN Verified 12/23/22 08:00 TAKE IV, BUT NOT PO ondansetron [From Zofran] Allergy Intermediate r/t Verified 12/23/22 08:00 prolonged QT rizatriptan [RIZATRIPTAN] Allergy Intermediate HIVES Verified 12/23/22 08:00 potassium Allergy Unknown unknown Verified 12/23/22 08:00 diphenhydramine AdvReac Unknown told to Verified 12/23/22 08:00 [From BENADRYL] avoid From REGLAN Allergy Severe DYSPHORIA Uncoded 12/23/22 08:00 Home Medications Medication Instructions Recorded Confirmed Last Taken Type cetirizine 10 mg capsule (All Day 10 mg PO DAILY PRN Allergy Symptoms 11/14/20 12/04/22 Unknown History Allergy (cetirizine)) cholecalciferol (vitamin D3) 125 125 mcg PO DAILY 11/14/20 12/04/22 Unknown History mcg (5,000 unit) capsule vitamin B complex (B 1 tab PO DAILY 11/14/20 12/04/22 Unknown History Complex-Vitamin B12 tablet) albuterol sulfate 90 mcg/actuation 2 puff PO Q4-6H PRN Shortness Of 01/14/22 12/04/22 Unknown History aerosol inhaler (ProAir HFA) Breath Or Wheezing meloxicam 15 mg tablet 15 mg PO DAILY 01/14/22 12/23/22 12/16/22 History omeprazole 20 mg capsule,delayed 20 mg PO DAILY 01/14/22 12/04/22 Unknown History release amlodipine 10 mg tablet 10 mg PO DAILY 12/04/22 12/23/22 12/23/22 07:30 History carvedilol 3.125 mg tablet 3.125 mg PO BID 12/04/22 12/23/22 12/23/22 07:30 History diazepam 5 mg tablet 5 mg PO ONCE PRN Anxiety 12/04/22 12/23/22 12/23/22 07:30 History fluticasone propionate 110 2 puff inhalation 12/04/22 12/04/22 Unknown History mcg/actuation HFA aerosol inhaler (Flovent HFA) fluticasone propionate 50 1 - 2 spray intranasal QAM 12/04/22 12/04/22 Unknown History mcg/actuation nasal spray,suspension polyethylene glycol 3350 17 17 g PO DAILY PRN Constipation 12/04/22 12/04/22 Unknown History gram/dose oral powder (Miralax) iron dextran 12/23/22 12/12/22 History Exam Exam Date and Time: December 04, 2022 1313 Height,Weight and Vital Signs: Height 5 ft 3 in Weight 120.202 kg Last Vital Signs Pulse 80 12/04/22 12:59 Resp 16 12/04/22 12:59 BP 131/76 12/04/22 12:59 Pulse Ox 97 12/04/22 12:59 O2 Del Method Room Air 12/04/22 12:59 Pertinent Lab Results Pertinent Lab Results: 09/2022 WBC 12.8 (H) Hgb 11.4 (L) Hct 35.7 (L) Plt 395k CMP all WNL Narrative Narrative: EKG 05/2022 NSR @ 97 Prolonged QT (QTc= 492) No significant change from 06/2018 ECHO 09/2022 1. LV size normal 2. LV wall thickness is normal 3. Overall LV systolic function is normal with an EF 60-65% 4. Gr II diastolic dysfunction with elevated LA pressure 5. LA size is normal 6. RV systolic function is normal 7. Trace MR 8. Mild pulmonary htn 9. No prior echo for comparison Airway Mallampati Class: II TM Dist: >3cm Neck ROM: Full Loose/Missing/Broken Teeth: No Heart: RRR Lungs: CTAB Assessment and Plan Assessment Anesthesia Assessment: Chart Reviewed Documented by User: Patricia Mcgovern MD 12/23/22 10:26 PMFSH Past Medical History Medical History (Updated 12/08/22 @ 14:15 by Elisa Cho NP) Anemia Asthma Ear piercing Essential hypertension Leukocytosis Murmur, cardiac ALMA DELIA (obstructive sleep apnea) PCOS (polycystic ovarian syndrome) Personal history of COVID-19 Prolonged QT interval Renal cyst Sacroiliac joint dysfunction of right side Thyroid condition Family History Family history of problems with anesthesia: No Surgical History Surgical History (Updated 12/04/22 @ 12:55 by Maci Tyler, AYLIN) H/O gastric sleeve History of ankle surgery History of History of laparoscopic partial gastrectomy S/P fusion of sacroiliac joint S/P left knee arthroscopy Status post arthroscopy of shoulder History of Problems with Anesthesia: No Social History Social History (Updated 12/04/22 @ 12:59 by Maci Tyler, AYLIN) Household Members: Spouse and Children Housing: House 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 If so, by whom?: No Are you DNR?: No Advance Directives: No Advance Directives Information Provided: Yes Advance Directives on File: No Recently lost weight without trying: No Nutrition Risks: No Nutritional Risk Patient : No : No Poor oral hygiene: No Meds Allergies Allergy/AdvReac Type Severity Reaction Status Date / Time amoxicillin Allergy Severe DIFFICULTY Verified 12/23/22 08:00 BREATHING clavulanic acid Allergy Severe DIFFICULTY Verified 12/23/22 08:00 BREATHNG nabumetone Allergy Severe Depression Verified 12/23/22 08:00 Penicillins Allergy Severe Shortness Verified 12/23/22 08:00 of Breath, itching sulfamethoxazole Allergy Severe DIFFICULTY Verified 12/23/22 08:00 BREATHING, anaphylaxis trimethoprim Allergy Severe DIFFICULTY Verified 12/23/22 08:00 BREATHING, anaphylaxis azithromycin Allergy Intermediate DIFFICULTY Verified 12/23/22 08:00 BREATHING hydrocodone Allergy Intermediate DIFFICULTY Verified 12/23/22 08:00 BREATHING levofloxacin Allergy Intermediate AGITATION-CAN Verified 12/23/22 08:00 TAKE IV, BUT NOT PO ondansetron [From Zofran] Allergy Intermediate r/t Verified 12/23/22 08:00 prolonged QT rizatriptan [RIZATRIPTAN] Allergy Intermediate HIVES Verified 12/23/22 08:00 potassium Allergy Unknown unknown Verified 12/23/22 08:00 diphenhydramine AdvReac Unknown told to Verified 12/23/22 08:00 [From BENADRYL] avoid From REGLAN Allergy Severe DYSPHORIA Uncoded 12/23/22 08:00 Home Medications Medication Instructions Recorded Confirmed Last Taken Type cetirizine 10 mg capsule (All Day 10 mg PO DAILY PRN Allergy Symptoms 11/14/20 12/04/22 Unknown History Allergy (cetirizine)) cholecalciferol (vitamin D3) 125 125 mcg PO DAILY 11/14/20 12/04/22 Unknown History mcg (5,000 unit) capsule vitamin B complex (B 1 tab PO DAILY 11/14/20 12/04/22 Unknown History Complex-Vitamin B12 tablet) albuterol sulfate 90 mcg/actuation 2 puff PO Q4-6H PRN Shortness Of 01/14/22 12/04/22 Unknown History aerosol inhaler (ProAir HFA) Breath Or Wheezing meloxicam 15 mg tablet 15 mg PO DAILY 01/14/22 12/23/22 12/16/22 History omeprazole 20 mg capsule,delayed 20 mg PO DAILY 01/14/22 12/04/22 Unknown History release amlodipine 10 mg tablet 10 mg PO DAILY 12/04/22 12/23/22 12/23/22 07:30 History carvedilol 3.125 mg tablet 3.125 mg PO BID 12/04/22 12/23/22 12/23/22 07:30 History diazepam 5 mg tablet 5 mg PO ONCE PRN Anxiety 12/04/22 12/23/22 12/23/22 07:30 History fluticasone propionate 110 2 puff inhalation 12/04/22 12/04/22 Unknown History mcg/actuation HFA aerosol inhaler (Flovent HFA) fluticasone propionate 50 1 - 2 spray intranasal QAM 12/04/22 12/04/22 Unknown History mcg/actuation nasal spray,suspension polyethylene glycol 3350 17 17 g PO DAILY PRN Constipation 12/04/22 12/04/22 Unknown History gram/dose oral powder (Miralax) iron dextran 12/23/22 12/12/22 History Assessment and Plan Assessment Anesthesia Assessment: Anesthesia Plan Discussed Final Anesthetic Review Family History of Problems with Anesthesia: No History of Problems with Anesthesia: No NPO: Yes ASA Class: III Final Preanesthetic Review: No Changes in Pt Med Stat, Meds/Allgs Chart Reviewed, Consent Obtained/Reviewed and Anes Risks/Benef Reviewed Patient Risk: Intermediate Procedure Risk: Low Anesthetic Plan Anesthetic Plan: GA Disposition: Standard PACU
[2022-12-23] VITALS (13 sets, daily range): BP systolic 126–169; BP diastolic 68–89; PULSE 82–92; RESP 12–24; TEMP 36.3–36.6; O2SAT 94–99
--- NOTE | ~2022-12-23 | FL_ITS ---
EXAMINATION: XR FLUOROSCOPY WITH IMAGES CLINICAL INFORMATION: Left SI joint fusion COMPARISON: None available. TECHNIQUE: Fluoroscopy Supervised By: Dr. Izaguirre. Fluoroscopy Time: 1.7 minutes. Cumulative Dose: 154.0 mGy. DAP: 20.8 Gycm2. Images: 3. FINDINGS: 3 digital images obtained revealing fusion of left SI joint with hardware in good position. No bony abnormality seen. FL/FL guidance in OR IMPRESSION: Fluoroscopy guidance was provided to referring physician for left SI joint fusion with hardware in good position.
[2022-12-23 08:17] LABS: UPreg QC Valid YES; Urine Pregnancy NEGATIVE (NEGATIVE)
[2022-12-23] MEDS: Albuterol Sulfate (0.083%) 2.5 MG/3 ML VIAL.NEB INHALE (08:53)
[2022-12-23] MEDS: Gabapentin 300 MG CAPSULE PO (08:55)
[2022-12-23] MEDS: Lactated Ringers 1,000 ML 100 ML IVCONT (08:55)
[2022-12-23] MEDS: vancomycin/NS 2,000 MG/500 ML PLAST..BAG 250 MG IV (09:25)
--- NOTE | 2022-12-23 09:29 | PC.NURSE ---
PER DR. ERWIN, HOLD ROBAXIN PO PREOP DUE TO PATIENT ALREADY TAKING IT THIS MORNING AT HOME. VANCO DOSE CHANGED TO 2000MG PER WEIGHT, OKAYED PER DR. ERWIN. VERIFIED DOSE WITH MARIA FERNANDA FROM PHARMACY.
--- NOTE | 2022-12-23 11:46 | PM.DS ---
DS: Providers Provider Date of Service: 12/23/22 Date of discharge: 12/23/22 Primary care physician: Ambika Webster MD Admitting clinician: Daniel Izaguirre DS: Diagnosis Discharge Diagnosis (1) Sacroiliac joint pain: Status: Acute DS: Summary Time Spent with Patient Time attestation: Total time managing care of this patient today ____ minutes. Discharge coordination time: Less than 30 minutes Quality: Safe Use of Opioids Does Pt have an Active Cancer Diagnosis on the Problem List?: No Quality: Stroke Does the patient have a stroke diagnosis?: No Physical Exam Vital Signs: Vital Signs: Last Vital Signs Temp 97.9 F 12/23/22 08:12 Pulse 82 12/23/22 08:54 Resp 18 12/23/22 08:54 BP 147/85 H 12/23/22 08:12 Pulse Ox 96 12/23/22 08:12 O2 Del Method Room Air 12/23/22 08:12 BMI result Body Mass Index 46.9 DS: Data Data Completed and Pending Labs on day of discharge: Laboratory Results - last 24 hr 12/23/22 08:00 Urine Test NEGATIVE Discharge Plan Discharge Patient Disposition: Home, Self-Care Referrals: Ambika Webster MD [Primary Care Provider] - 1 Week Discharge Medications: New docusate sodium [Colace] 100 mg capsule 100 mg PO BID Qty: 20 0RF tramadol 50 mg tablet See Rx Instructions .ROUTE .COMPLEX PRN (Reason: pain) Qty: 30 0RF Rx Instructions: 1-2 tabs po q6 hours prn pain Continued bisacodyl 5 mg tablet,delayed release (DR/EC) 10 mg PO BEDTIME Qty: 14 0RF methocarbamol 750 mg tablet 750 mg PO QID PRN (Reason: muscle spasticity) 30 Days Qty: 120 0RF dicyclomine 20 mg tablet 20 mg PO QID PRN (Reason: abdominal pain) Qty: 20 0RF [id number]-[id number] 50-325-40 mg tablet 1 tab PO Q6H PRN (Reason: pain) Qty: 20 0RF diazepam [Valium] 5 mg tablet 5 mg PO TID PRN (Reason: muscle spasm) Qty: 10 0RF Rx Instructions: partial fill is okay docusate sodium [Colace] 100 mg capsule 100 mg PO BID PRN (Reason: Constipation) Qty: 14 0RF ibuprofen 600 mg tablet 600 mg PO TID PRN (Reason: pain) Qty: 14 0RF polyethylene glycol 3350 [Miralax] 17 gram/dose powder 17 g PO DAILY PRN (Reason: Constipation) diazepam 5 mg tablet 5 mg PO ONCE PRN (Reason: Anxiety) Rx Instructions: take 1-2 tabs, one to two hours prior to the procedure. Be sure to have someone drive you to and from the procedure, as this medication is sedating carvedilol 3.125 mg tablet 3.125 mg PO BID amlodipine 10 mg tablet 10 mg PO DAILY fluticasone propionate 50 mcg/actuation spray,suspension 1 - 2 spray intranasal QAM fluticasone propionate [Flovent HFA] 110 mcg/actuation HFA aerosol inhaler 2 puff INHALATION iron dextran vitamin B complex [B Complex-Vitamin B12] Tablet 1 tab PO DAILY cholecalciferol (vitamin D3) 125 mcg (5,000 unit) capsule 125 mcg PO DAILY All Day Allergy (cetirizine) 10 mg capsule 10 mg PO DAILY PRN (Reason: Allergy Symptoms) albuterol sulfate [ProAir HFA] 90 mcg/actuation HFA aerosol inhaler 2 puff PO Q4-6H PRN (Reason: Shortness Of Breath Or Wheezing) omeprazole 20 mg capsule,delayed release(DR/EC) 20 mg PO DAILY meloxicam 15 mg tablet 15 mg PO DAILY Diet: Advance to usual diet Activity on Discharge: Walk with crutches Activity Restrictions/Additional Instructions: After your SI joint fusion surgery we ask you to observe the following restrictions/guidelines: Activity: It is normal to feel some discomfort as you increase your activity, but that will improve with time. We ask you avoid heavy lifting or acitivities that cause pain. As a general rule, 8lbs is a safe limit for lifting right after surgery. We ask you to stay off your [] leg after surgery in order to help the SI joint fuse. Please use crutches or walker. You may return to driving when you are off narcotics (such as vicodin, oxycodone, dilaudid, etc), and you are back to normal functional capacity. If you have any concerns please check with office before driving. Return to work is specific to each patient and each surgery, so please speak with your doctor/PA at first follow up. Please bring paperwork such as FMLA at that time if you need it filled out. Follow up: Please call the office, , after surgery to arrange a 3 week follow up for wound check. Wound Care: Your wound was closed with glue, there are no sutures to remove. You may shower on post op day # 1. We ask that you do not let the water soak the wound. If it does get wet, just towel dry lightly. Please do not scrub your incision or place any type of chemical/ointment on the wound. No tub baths, pools or jacuzzis for one month. If you have any leaking or redness from your wound, or fevers, please call office Medications: We will give you a short supply of narcotics after surgery (usually one weeks worth). If you need more please call the office but do not use more than prescribed. You will need to give our office 48 hours notice if you need narcotics refilled and we do not fill narcotics on weekends or evenings. If you are on a narcotic, it is a good idea to take a stool softener such as colace or senna to avoid constipation If you take blood thinner such as aspirin, Plavix, Coumadin, Effient, Eliquis etc for conditions such as Afib, DVT, Pulmonary embolus, coronary disease, stents etc please speak with your surgeon about specific details as to when you can resume these medications. You can resume NSAIDs on post op day 1 (eg: Motrin, Naproxen, etc).
[2022-12-23] MEDS: fentaNYL citrate/PF 100 MCG/2 ML VIAL 50 MCG IVPUSH ×2 (12:25→12:57)
[2022-12-23] MEDS: oxyCODONE HCl Immed Release 5 MG TABLET 10 MG PO (12:25)
--- NOTE | 2022-12-23 13:20 | P.DS_ITS ---
DS: Providers Provider Date of Service: 12/23/22 Primary care physician: Ambika Webster MD DS: Diagnosis Discharge Diagnosis (1) Sacroiliac joint pain: Status: Acute DS: Summary Time Spent with Patient Time attestation: Total time managing care of this patient today ____ minutes. Discharge coordination time: Less than 30 minutes Quality: Safe Use of Opioids Does Pt have an Active Cancer Diagnosis on the Problem List?: No Quality: Stroke Does the patient have a stroke diagnosis?: No Physical Exam Vital Signs: Vital Signs: Last Vital Signs Temp 97.4 F 12/23/22 12:12 Pulse 90 12/23/22 13:12 Resp 14 12/23/22 13:12 BP 158/89 H 12/23/22 13:12 Pulse Ox 96 12/23/22 13:12 O2 Del Method Nasal Cannula wit h Capnography 12/23/22 13:12 O2 Flow Rate 2 12/23/22 13:12 BMI result Body Mass Index 46.9 DS: Data Data Completed and Pending Labs on day of discharge: Laboratory Results - last 24 hr 12/23/22 08:00 Urine Test NEGATIVE Discharge Plan Discharge Patient Disposition: Home, Self-Care Referrals: Ambika Webster MD [Primary Care Provider] - 1 Week Discharge Medications: New docusate sodium [Colace] 100 mg capsule 100 mg PO BID Qty: 20 0RF tramadol 50 mg tablet See Rx Instructions .ROUTE .COMPLEX PRN (Reason: pain) Qty: 30 0RF Rx Instructions: 1-2 tabs po q6 hours prn pain Continued bisacodyl 5 mg tablet,delayed release (DR/EC) 10 mg PO BEDTIME Qty: 14 0RF methocarbamol 750 mg tablet 750 mg PO QID PRN (Reason: muscle spasticity) 30 Days Qty: 120 0RF dicyclomine 20 mg tablet 20 mg PO QID PRN (Reason: abdominal pain) Qty: 20 0RF locghbrjlz-azulnevexejbx-ekbj 50-325-40 mg tablet 1 tab PO Q6H PRN (Reason: pain) Qty: 20 0RF diazepam [Valium] 5 mg tablet 5 mg PO TID PRN (Reason: muscle spasm) Qty: 10 0RF Rx Instructions: partial fill is okay docusate sodium [Colace] 100 mg capsule 100 mg PO BID PRN (Reason: Constipation) Qty: 14 0RF ibuprofen 600 mg tablet 600 mg PO TID PRN (Reason: pain) Qty: 14 0RF polyethylene glycol 3350 [Miralax] 17 gram/dose powder 17 g PO DAILY PRN (Reason: Constipation) diazepam 5 mg tablet 5 mg PO ONCE PRN (Reason: Anxiety) Rx Instructions: take 1-2 tabs, one to two hours prior to the procedure. Be sure to have someone drive you to and from the procedure, as this medication is sedating carvedilol 3.125 mg tablet 3.125 mg PO BID amlodipine 10 mg tablet 10 mg PO DAILY fluticasone propionate 50 mcg/actuation spray,suspension 1 - 2 spray intranasal QAM fluticasone propionate [Flovent HFA] 110 mcg/actuation HFA aerosol inhaler 2 puff INHALATION iron dextran vitamin B complex [B Complex-Vitamin B12] Tablet 1 tab PO DAILY cholecalciferol (vitamin D3) 125 mcg (5,000 unit) capsule 125 mcg PO DAILY All Day Allergy (cetirizine) 10 mg capsule 10 mg PO DAILY PRN (Reason: Allergy Symptoms) albuterol sulfate [ProAir HFA] 90 mcg/actuation HFA aerosol inhaler 2 puff PO Q4-6H PRN (Reason: Shortness Of Breath Or Wheezing) omeprazole 20 mg capsule,delayed release(DR/EC) 20 mg PO DAILY meloxicam 15 mg tablet 15 mg PO DAILY Discharge Orders: Discharge Order (Routine); Ordered 12/23/22 Ordered By: Corey Carmona Diet: Advance to usual diet Activity on Discharge: Walk with crutches Activity Restrictions/Additional Instructions: After your SI joint fusion surgery we ask you to observe the following restrictions/guidelines: Activity: It is normal to feel some discomfort as you increase your activity, but that will improve with time. We ask you avoid heavy lifting or acitivities that cause pain. As a general rule, 8lbs is a safe limit for lifting right after surgery. We ask you to stay off your [] leg after surgery in order to help the SI joint fuse. Please use crutches or walker. You may return to driving when you are off narcotics (such as vicodin, oxycodone, dilaudid, etc), and you are back to normal functional capacity. If you have any concerns please check with office before driving. Return to work is specific to each patient and each surgery, so please speak with your doctor/PA at first follow up. Please bring paperwork such as FMLA at that time if you need it fill ed out. Follow up: Please call the office, , after surgery to arrange a 3 week follow up for wound check. Wound Care: Your wound was closed with glue, there are no sutures to remove. You may shower on post op day # 1. We ask that you do not let the water soak the wound. If it does get wet, just towel dry lightly. Please do not scrub your incision or place any type of chemical/ointment on the wound. No tub baths, pools or jacuzzis for one month. If you have any leaking or redness from your wound, or fevers, please call office Medications: We will give you a short supply of narcotics after surgery (usually one weeks worth). If you need more please call the office but do not use more than prescribed. You will need to give our office 48 hours notice if you need narcotics refilled and we do not fill narcotics on weekends or evenings. If you are on a narcotic, it is a good idea to take a stool softener such as colace or senna to avoid constipation If you take blood thinner such as aspirin, Plavix, Coumadin, Effient, Eliquis etc for conditions such as Afib, DVT, Pulmonary embolus, coronary disease, stents etc please speak with your surgeon about specific details as to when you can resume these medications. You can resume NSAIDs on post op day 1 (eg: Motrin, Naproxen, etc).
--- NOTE | 2022-12-25 07:42 | P.OP_ITS ---
Operative Note Operative Note Date of Service: 12/23/22 Narrative: PreoperativeDiagnosis: left SI joint dysfunction Procedure: Arthrodesis, sacroiliac joint, with image guidance, and placement of transfixing device Surgeon: Daniel Izaguirre MD, PhD Description of procedure: This 47-year-old female who is suffering from bilateral SI joint dysfunction. She previously had a right SI joint fusion done and comes in today for a left-sided SI joint fusion. The procedure complica tions were explained. She was consented. She was brought to the operating room endotracheal intubated. She was turned in a prone position on the Akhil spine table. The anterior and posterior wall of the sacrum were marked on the skin as well as a line going from the promontory and towards the notch. The incision was marked in the center of the notch. Prep and drape was done followed by t omorrow. A 1 in for the quad incision was made. The muscle fascia was opened. The dull end of a K-wire was advanced and placed at the inferior endplate of the S1 vertebral body under lateral fluoroscopic guidance. The dilator was advanced and locked in the same position. Then the K-wire was removed and introduced again with sharp and tapped into the bone. The K-wire was advanced with a a drill crossing the SI joint and ending shy from the medial wall of the S1 foramen using inlet and outlet views. A screw length was 40 mm was measured. Then a 40 mm trident screw was advanced into the correct position. Then 2 screws with a length of 35 mm with replace lateral from the main screw to secure the central device. The main screw was back filled with allograft. Final x-rays showed a satisfactory position of the implant. Hemostasis was done. The incision was closed in 0 Vicryl. Steri-Strips used to approximate incision. and op-site with tegaderm was used to cover the incision. Patient was transported in a stable condition to recovery room. Blood loss: 30 mL Complications: None Disposition: Home
== END 2022-12-23 14:51 | disposition home or self-care (01) ==
PROVIDERS: Nurse Practitioner; PCP Internal Medicine; Visit Provider Neurological Surgery
PROC: (CPT 27279; principal; 2022-12-23 09:20)
DX: M53.3 Sacrococcygeal disorders, not elsewhere classified (principal); G89.29 Other chronic pain; M51.36 Other intervertebral disc degeneration, lumbar region; G47.33 Obstructive sleep apnea (adult) (pediatric); E66.01 Morbid (severe) obesity due to excess calories; J45.909 Unspecified asthma, uncomplicated; R94.31 Abnormal electrocardiogram [ECG] [EKG]; Z79.899 Other long term (current) drug therapy; Z79.51 Long term (current) use of inhaled steroids; Z88.0 Allergy status to penicillin; Z88.1 Allergy status to other antibiotic agents; Z98.84 Bariatric surgery status; Z98.890 Other specified postprocedural states
CPT/HCPCS: 27279; 81025; 94640; C1713; J0131; J1100; J1885; J2250; J2405; J2550; J3010; J3370; L8699

== ENCOUNTER → 2023-01-06 11:44 | Outpatient (BNVA) | payer MEDICAID, SELFPAY | PROVIDERS: PCP Internal Medicine; Visit Provider Physician Assistant | DX: M53.3 Sacrococcygeal disorders, not elsewhere classified (principal) | CPT/HCPCS: 99212 ==

== ENCOUNTER 2023-01-15 14:05 | Outpatient (REF) | payer MEDICAID, SELFPAY ==
--- NOTE | ~2023-01-15 | XR_ITS ---
EXAMINATION: XR PELVIS CLINICAL INFORMATION: Pain left sacroiliac joint COMPARISON: 11/14/2020 pelvis, 09/03/2021 sacrum/coccyx TECHNIQUE: 4 views of the pelvis including AP, lateral and oblique views. FINDINGS: Degenerative changes in the imaged lower lumbar spine. Degenerative changes in the bilateral hips with mild joint space narrowing. Small soft tissue calcifications adjacent to the bilateral greater trochanters. Metallic surgical device overlies the midportion of the left sacroiliac joint. Hardware appears intact. Facet arthritis on limited views of the lower lumbar spine. XR/XR pelvis min 3V IMPRESSION: Metallic surgical device overlies the midportion of the left sacroiliac joint. Hardware appears intact. Mild degenerative changes bilateral hips. Additional imaging with CT scan or MRI should be considered for better visualization as these modalities are much more sensitive for detection of fracture or other underlying pathology.
== END 2023-01-15 14:06 | disposition home or self-care (01) ==
LOC: HO.HOSX 14:05
PROVIDERS: PCP Internal Medicine; Visit Provider Physician Assistant
DX: M53.3 Sacrococcygeal disorders, not elsewhere classified (principal)
CPT/HCPCS: 72190; 99212

== ENCOUNTER → 2023-01-22 09:59 | Outpatient (BNVA) | payer MEDICAID, SELFPAY | PROVIDERS: PCP Internal Medicine; Visit Provider Physician Assistant | DX: M53.3 Sacrococcygeal disorders, not elsewhere classified (principal) | CPT/HCPCS: 99212 ==

== ENCOUNTER 2023-03-26 14:57 | Outpatient (REF) | payer MEDICAID, SELFPAY ==
[2023-03-26 18:16] LABS: Estimated Average Glucose 111 mg/dL; Hemoglobin A1C 119.3441 umol/L; Hemoglobin A1c % 5.5 % (<6.0)
[2023-03-26 18:31] LABS: C Reactive Protein 2.38 mg/dL (< or = 0.50)
[2023-03-26 18:41] LABS: Erythrocyte Sedimentation Rate 12 MM/HR (0-20)
[2023-03-26 18:43] LABS: TSH reflex Free T4 0.29 uIU/mL (0.32-4.0)
[2023-03-26 19:14] LABS: Free T4 (Free Thyroxine) 0.86 ng/dL (0.71-1.85)
== END 2023-03-26 14:58 | disposition home or self-care (01) ==
LOC: HO.CHCLDS 14:57
PROVIDERS: Visit Provider Pediatrics
DX: S83.412A Sprain of medial collateral ligament of left knee, initial encounter (principal); I10 Essential (primary) hypertension; E07.9 Disorder of thyroid, unspecified; X58.XXXA Exposure to other specified factors, initial encounter; Y93.9 Activity, unspecified; Y92.9 Unspecified place or not applicable; Y99.9 Unspecified external cause status
CPT/HCPCS: 36415; 83036; 84439; 84443; 85652; 86140

== ENCOUNTER 2023-03-26 15:15 | Outpatient (REF) | payer MEDICAID, SELFPAY ==
--- NOTE | ~2023-03-26 | XR_ITS ---
EXAMINATION: XR PELVIS CLINICAL INFORMATION: SI joint fusion COMPARISON: Previous x-ray most recent December 2022 TECHNIQUE: AP view of the pelvis. FINDINGS: Fusion hardware across the left sacroiliac joint appears unchanged. There is arthritis at the right sacroiliac joint. No fracture or dislocation or x-ray evidence of loosening. Mild degenerative changes of the lower lumbar spine. Normal-appearing hip joints. Normal soft tissues. XR/XR pelvis min 3V IMPRESSION: Stable appearance of left sacroiliac joint fusion.
== END 2023-03-26 15:16 | disposition home or self-care (01) ==
LOC: HO.HOSX 15:15
PROVIDERS: Visit Provider Physician Assistant
DX: M53.3 Sacrococcygeal disorders, not elsewhere classified (principal)
CPT/HCPCS: 72190

== ENCOUNTER 2023-03-27 11:45 | Outpatient (AMB) | payer MEDICAID, SELFPAY ==
--- NOTE | 2023-03-27 13:07 | A.SPINEOV_ITS ---
Intake Intake Visit Reasons: 2 month f/u with Xrays Intake Note: Mrs. Pool is here today for her 2mo f/u w/x-rays. Visual And Stock Associate Required: No Allergies amoxicillin Allergy (Severe, Verified 12/23/22 08:00) DIFFICULTY BREATHING clavulanic acid Allergy (Severe, Verified 12/23/22 08:00) DIFFICULTY BREATHNG nabumetone Allergy (Severe, Verified 12/23/22 08:00) Depression Penicillins Allergy (Severe, Verified 12/23/22 08:00) Shortness of Breath, itching sulfamethoxazole Allergy (Severe, Verified 12/23/22 08:00) DIFFICULTY BREATHING, anaphylaxis trimethoprim Allergy (Severe, Verified 12/23/22 08:00) DIFFICULTY BREATHING, anaphylaxis azithromycin Allergy (Intermediate, Verified 12/23/22 08:00) DIFFICULTY BREATHING hydrocodone Allergy (Intermediate, Verified 12/23/22 08:00) DIFFICULTY BREATHING levofloxacin Allergy (Intermediate, Verified 12/23/22 08:00) AGITATION-CAN TAKE IV, BUT NOT PO ondansetron [From Zofran] Allergy (Intermediate, Verified 12/23/22 08:00) r/t prolonged QT rizatriptan [RIZATRIPTAN] Allergy (Intermediate, Verified 12/23/22 08:00) HIVES potassium Allergy (Unknown, Verified 12/23/22 08:00) unknown diphenhydramine [From BENADRYL] Adverse Reaction (Unknown, Verified 12/23/22 08:00) told to avoid From REGLAN Allergy (Severe, Uncoded 12/23/22 08:00) DYSPHORIA Assessment & Plan Assessment & Plan (1) Sacroiliac joint pain: Code(s): M53.3 - Sacrococcygeal disorders, not elsewhere classified Plan Mrs Pool is 3 months out from her left-sided SI joint fusion with Trident implant system. She is otherwise doing okay from the standpoint of her SI joint pain. She has other chronic pains in her back, so she is not pain-free but is doing significantly better than what she was before surgery. Her x-rays today look great. At this point she has no restrictions and can follow up with bus on an as-needed basis. Corey Izaguirre MD, PhD [facility] Medications: Discontinued diazepam take 1-2 tabs, one to two hours prior to the procedure. Be sure to have someone drive you to and from the procedure, as this medication is sedating 5 mg PO ONCE PRN 2 tabs 0RF sleep polyethylene glycol 3350 17 grams PO DAILY 510 grams 2RF Coding Level of Care Code Global (93159) Diagnoses Sacroiliac joint pain M53.3
== END 2023-03-27 13:19 | disposition home or self-care (01) ==
PROVIDERS: PCP Internal Medicine; Visit Provider Physician Assistant
DX: M53.3 Sacrococcygeal disorders, not elsewhere classified (principal)
CPT/HCPCS: 99212

== ENCOUNTER → 2023-03-27 11:45 | Outpatient (BNVA) | payer MEDICAID, SELFPAY | PROVIDERS: PCP Internal Medicine; Visit Provider Physician Assistant | DX: M53.3 Sacrococcygeal disorders, not elsewhere classified (principal) | CPT/HCPCS: 99212 ==

== ENCOUNTER 2023-04-15 11:31 | Outpatient (REF) | payer MEDICAID, SELFPAY | END 2023-04-15 11:32 | disposition home or self-care (01) | LOC: HO.HOSX 11:31 | PROVIDERS: Visit Provider Orthopaedic Surgery | DX: Z13.89 Encounter for screening for other disorder (principal) ==

== ENCOUNTER 2023-04-16 07:57 | Outpatient (AMB) | payer MEDICAID, SELFPAY ==
--- NOTE | 2023-04-16 08:13 | MHC.OFFVIS ---
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 The patient describes her pain as sharp in nature. She did injure her knee approximately 2 years ago while walking down her stairs. She twisted her knee and had acute onset of pain. The patient states that she had similar pain in 2001. She underwent left knee arthroscopic surgery at that time. She got very good relief from the procedure. Her symptoms have gotten worse over the last year in spite of continued non operative treatments. She has done physical therapy for 12 weeks over the last 6 months which aggravated her pain. She has tried Tylenol and anti-inflammatory medicines which gave her minimal relief. She has also had multiple injections. The most recent injection gave her relief for only several days. The patient states that her left knee will give out several times per day. Allergies amoxicillin Allergy (Severe, Verified 12/23/22 08:00) DIFFICULTY BREATHING clavulanic acid Allergy (Severe, Verified 12/23/22 08:00) DIFFICULTY BREATHNG nabumetone Allergy (Severe, Verified 12/23/22 08:00) Depression Penicillins Allergy (Severe, Verified 12/23/22 08:00) Shortness of Breath, itching sulfamethoxazole Allergy (Severe, Verified 12/23/22 08:00) DIFFICULTY BREATHING, anaphylaxis trimethoprim Allergy (Severe, Verified 12/23/22 08:00) DIFFICULTY BREATHING, anaphylaxis azithromycin Allergy (Intermediate, Verified 12/23/22 08:00) DIFFICULTY BREATHING hydrocodone Allergy (Intermediate, Verified 12/23/22 08:00) DIFFICULTY BREATHING levofloxacin Allergy (Intermediate, Verified 12/23/22 08:00) AGITATION-CAN TAKE IV, BUT NOT PO ondansetron [From Zofran] Allergy (Intermediate, Verified 12/23/22 08:00) r/t prolonged QT rizatriptan [RIZATRIPTAN] Allergy (Intermediate, Verified 12/23/22 08:00) HIVES diphenhydramine [From BENADRYL] Adverse Reaction (Unknown, Verified 12/23/22 08:00) told to avoid From REGLAN Allergy (Severe, Uncoded 12/23/22 08:00) DYSPHORIA Medication List - Last Reconciled 04/16/23 by Sonny Puga MD albuterol sulfate 90 mcg/actuation (ProAir HFA) 2 puffs PO Q4-6H PRN amlodipine 10 mg PO DAILY bisacodyl 10 mg (2 x 5 mg) PO BEDTIME carvedilol 3.125 mg PO BID cetirizine (All Day Allergy (cetirizine)) 10 mg PO DAILY PRN cholecalciferol (vitamin D3) 125 mcg PO DAILY diazepam (Valium) 5 mg PO TID PRN dicyclomine 20 mg PO QID PRN docusate sodium (Colace) 100 mg PO BID PRN docusate sodium (Colace) 100 mg PO BID fluticasone propionate 50 mcg/actuation 1 - 2 sprays intranasal QAM fluticasone propionate 110 mcg/actuation (Flovent HFA) 2 puffs inhalation ibuprofen 600 mg PO TID PRN [iron dextran ] meloxicam 15 mg PO DAILY omeprazole 20 mg PO DAILY polyethylene glycol 3350 (Miralax) 17 grams PO DAILY PRN vitamin B complex (B Complex-Vitamin B12 tablet) 1 tab PO DAILY PFS Medical History Leukocytosis Ear piercing ALMA DELIA (obstructive sleep apnea) Personal history of COVID-19 Renal cyst Anemia Prolonged QT interval Murmur, cardiac Thyroid condition Essential hypertension Sacroiliac joint dysfunction of right side Asthma PCOS (polycystic ovarian syndrome) Surgical History History of S/P fusion of sacroiliac joint S/P left knee arthroscopy Status post arthroscopy of shoulder H/O gastric sleeve History of ankle surgery History of laparoscopic partial gastrectomy Social History Household Members: Spouse and Children Housing: House Are you a primary patient care secretary to a significant other at home: Yes (4 year old daughter) Do you presently have visiting nurse or other home services: No Alcohol intake: former Patient Tobacco Use Status: Never used Tobacco e-Cigarette/Vaping Use: Never Used Physical Exam Const Other: Well-nourished well-developed very friendly female awake alert and oriented x3 in no acute distress Lungs clear to auscultation bilaterally with symmetric expansion Cardiovascular exam regular rate and rhythm Abdominal exam is soft nontender nondistended Extrem Other: Bilateral lower extremity examination shows good capillary refill, no skin lesions noted, normal sensation light touch Left knee examination shows a minimal effusion, minimal crepitus with range of motion, tenderness along her medial and lateral joint lines, positive Brett's test, no instability Results Reviewed Results Reviewed: X-rays of the patient's left knee show mild diffuse degenerative changes, no acute bony abnormalities MRI of the patient's left knee shows mild diffuse degenerative changes as well as a tear of her medial meniscus and possible lateral meniscus tearing Assessment & Plan Assessment & Plan (1) Tear of medial meniscus of left knee: Code(s): S83.242A - Other tear of medial meniscus, current injury, left knee, initial encounter Plan: Ms. Pool presents with progressively worsening left knee pain and mechanical symptoms due to early degenerative joint disease as well as a tear of her medial meniscus and possible lateral meniscus tearing. I had a lengthy discussion with the patient regarding the treatment options. At this point she has failed continued non operative treatments. The risks and benefits of left knee arthroscopic surgery were discussed at length with the patient. The patient wishes to proceed with surgery. She does understand that she may not get 100% relief of her symptoms depending on the severity of her degenerative changes. Patient will contact my office to pick a surgery date. She will follow-up as instructed. Feel free to call me at any time should questions regarding her orthopedic management arise. Thank you very much for asking is very friendly patient. I spent 22 minutes in reviewing the patient's records and imaging studies, seeing the patient and documenting in the medical record. Orders: Orders XR knee LT 3V Today M25.562 - Pain in left knee Coding Level of Care Code New Pt Level 2 (86394) Diagnoses Tear of medial meniscus of left knee S83.242A
[2023-04-16 08:20] VITALS: BMI 46.1
== END 2023-04-16 08:39 | disposition home or self-care (01) ==
PROVIDERS: PCP Internal Medicine; Visit Provider Orthopaedic Surgery
DX: S83.242A Other tear of medial meniscus, current injury, left knee, initial encounter (principal)
CPT/HCPCS: 99202

== ENCOUNTER 2023-04-16 07:57 | Outpatient (REF) | payer MEDICAID, SELFPAY ==
--- NOTE | ~2023-04-16 | XR_ITS ---
EXAMINATION: XR KNEE, LEFT CLINICAL INFORMATION: Left knee pain. COMPARISON: Report from left knee radiographs dated 09/26/2014. TECHNIQUE: AP, lateral, and sunrise views of the left knee. FINDINGS: No significant joint space narrowing. Tiny tricompartmental marginal osteophytes. No osseous erosion. No fracture or dislocation. No abnormal soft tissue calcification. No significant joint effusion. XR/XR knee LT 3V IMPRESSION: Mild tricompartmental osteoarthritis.
== END 2023-04-16 07:58 | disposition home or self-care (01) ==
LOC: HO.HOSX 07:57
PROVIDERS: PCP Internal Medicine; Visit Provider Orthopaedic Surgery
DX: S83.242D Other tear of medial meniscus, current injury, left knee, subsequent encounter (principal); M25.562 Pain in left knee; X58.XXXD Exposure to other specified factors, subsequent encounter; Z79.899 Other long term (current) drug therapy
CPT/HCPCS: 73562; 99202

== ENCOUNTER 2023-07-15 11:00 | Outpatient (RCR) | payer MEDICAID, SELFPAY ==
[2023-07-09 11:04] VITALS: BP 134/80; PULSE 71
== END 2023-08-26 08:21 | disposition home or self-care (01) ==
LOC: HO.PT 11:00
PROVIDERS: PCP Internal Medicine; Visit Provider Student in an Organized Health Care Education/Training Program
DX: H81.03 Meniere's disease, bilateral (principal)
CPT/HCPCS: 95992; 97112; 97140; 97162

== ENCOUNTER 2023-08-26 08:45 | Outpatient (AMB) | payer MEDICAID, SELFPAY ==
[2023-08-26 08:51] VITALS: BMI 46.1
--- NOTE | 2023-08-26 08:51 | MHC.OFFVIS ---
Intake Vital Signs 08/26/23 08:51 Height 5 ft 3 in Weight 260 lb BMI 46.1 Intake Visit Reasons: PreOp-Lt Knee Intake Note: Kyle is a 48 year old female who presents today with complaints of progressively worsening left knee pain and giving way. The patient describes her pain as sharp in nature. She did injure her knee approximately 2 years ago while walking down her stairs. She twisted her knee and had acute onset of pain. The patient states that she had similar pain in 2001. She underwent left knee arthroscopic surgery at that time. She got very good relief from the procedure. Her symptoms have gotten worse over the last year in spite of continued non operative treatments. She has done physical therapy for 12 weeks over the last 6 months which aggravated her pain. She has tried Tylenol and anti-inflammatory medicines which gave her minimal relief. She has also had multiple injections. The most recent injection gave her relief for only several days. The patient states that her left knee will give out several times per day. Allergies amoxicillin Allergy (Severe, Verified 08/26/23 08:51) DIFFICULTY BREATHING clavulanic acid Allergy (Severe, Verified 08/26/23 08:51) DIFFICULTY BREATHNG nabumetone Allergy (Severe, Verified 08/26/23 08:51) Depression Penicillins Allergy (Severe, Verified 08/26/23 08:51) Shortness of Breath, itching sulfamethoxazole Allergy (Severe, Verified 08/26/23 08:51) DIFFICULTY BREATHING, anaphylaxis trimethoprim Allergy (Severe, Verified 08/26/23 08:51) DIFFICULTY BREATHING, anaphylaxis azithromycin Allergy (Intermediate, Verified 08/26/23 08:51) DIFFICULTY BREATHING hydrocodone Allergy (Intermediate, Verified 08/26/23 08:51) DIFFICULTY BREATHING levofloxacin Allergy (Intermediate, Verified 08/26/23 08:51) AGITATION-CAN TAKE IV, BUT NOT PO ondansetron [From Zofran] Allergy (Intermediate, Verified 08/26/23 08:51) r/t prolonged QT rizatriptan [RIZATRIPTAN] Allergy (Intermediate, Verified 08/26/23 08:51) HIVES diphenhydramine [From BENADRYL] Adverse Reaction (Unknown, Verified 08/26/23 08:51) told to avoid From REGLAN Allergy (Severe, Uncoded 12/23/22 08:00) DYSPHORIA Medication List - Last Reconciled 08/26/23 by Sonny Puga MD albuterol sulfate 90 mcg/actuation (ProAir HFA) 2 puffs PO Q4-6H PRN amlodipine 10 mg PO DAILY bisacodyl 10 mg (2 x 5 mg) PO BEDTIME carvedilol 3.125 mg PO BID cetirizine (All Day Allergy (cetirizine)) 10 mg PO DAILY PRN cholecalciferol (vitamin D3) 125 mcg PO DAILY diazepam (Valium) 5 mg PO TID PRN dicyclomine 20 mg PO QID PRN docusate sodium (Colace) 100 mg PO BID PRN docusate sodium (Colace) 100 mg PO BID fluticasone propionate 50 mcg/actuation 1 - 2 sprays intranasal QAM fluticasone propionate 110 mcg/actuation (Flovent HFA) 2 puffs inhalation ibuprofen 600 mg PO TID PRN [iron dextran ] meloxicam 15 mg PO DAILY omeprazole 20 mg PO DAILY polyethylene glycol 3350 (Miralax) 17 grams PO DAILY PRN vitamin B complex (B Complex-Vitamin B12 tablet) 1 tab PO DAILY [facility] Medical History Leukocytosis Ear piercing ALMA DELIA (obstructive sleep apnea) Personal history of COVID-19 Renal cyst Anemia Prolonged QT interval Murmur, cardiac Thyroid condition Essential hypertension Sacroiliac joint dysfunction of right side Asthma PCOS (polycystic ovarian syndrome) Surgical History History of S/P fusion of sacroiliac joint S/P left knee arthroscopy Status post arthroscopy of shoulder H/O gastric sleeve History of ankle surgery History of laparoscopic partial gastrectomy Social History Household Members: Spouse and Children Housing: House Are you a primary career development manager to a significant other at home: Yes (4 year old daughter) Do you presently have visiting nurse or other home services: No Alcohol intake: former Patient Tobacco Use Status: Never used Tobacco e-Cigarette/Vaping Use: Never Used Physical Exam Vital Signs: BMI result Body Mass Index 46.1 Const Other: Well-nourished well-developed very friendly female awake alert and oriented x3 in no acute distress Lungs - clear to auscultation bilaterally with symmetric expansion Cardiovascular exam - regular rate and rhythm Abdominal exam - soft nontender nondistended Extrem Other: Bilateral lower extremity examination shows good capillary refill, no skin lesions noted, normal sensation light touch Left knee examination shows a minimal effusion, minimal crepitus with range of motion, tenderness along her medial joint line, positive Brett's test, no instability Results Reviewed Results Reviewed: MRI of the patient's left knee shows mild to moderate degenerative changes, a tear of the medial meniscus, no acute bony abnormalities Assessment & Plan Assessment & Plan (1) Tear of medial meniscus of left knee: Code(s): S83.242A - Other tear of medial meniscus, current injury, left knee, initial encounter Plan Ms. Pool presents with progressively worsening left knee pain and mechanical symptoms due to degenerative joint disease as well as a tear of her medial meniscus. I had a lengthy discussion with the patient regarding the treatment options. At this point she has failed continued non operative treatments. The risks and benefits of revision left knee arthroscopic surgery versus left total knee replacement surgery were discussed at length with the patient. The patient wishes to proceed with the arthroscopic procedure. She does understand that she may not get 100% relief of her symptoms depending on the severity of her degenerative changes. Because of the patient's mechanical symptoms I do feel that she will get significant relief from the arthroscopic procedure. The patient does have oxycodone at home for her postoperative pain. She will follow-up as instructed. Feel free to call me at any time should questions regarding her orthopedic management arise. I spent 22 minutes in reviewing the patient's records and imaging studies, seeing the patient and documenting in the medical record. Coding Level of Care Code Est Pt Level 2 (94194) Diagnoses Tear of medial meniscus of left knee S83.242A
== END 2023-08-26 09:09 | disposition home or self-care (01) ==
PROVIDERS: PCP Internal Medicine; Visit Provider Orthopaedic Surgery
DX: S83.242A Other tear of medial meniscus, current injury, left knee, initial encounter (principal)
CPT/HCPCS: 99213

== ENCOUNTER → 2023-08-26 08:45 | Outpatient (BNVA) | payer MEDICAID, SELFPAY | PROVIDERS: PCP Internal Medicine; Visit Provider Orthopaedic Surgery | DX: S83.242A Other tear of medial meniscus, current injury, left knee, initial encounter (principal); M17.12 Unilateral primary osteoarthritis, left knee | CPT/HCPCS: 99212 ==

== ENCOUNTER 2023-09-04 09:35 | Day surgery (SDC) | payer MEDICAID, SELFPAY ==
[2023-09-02 10:37] VITALS: BMI 46.1
[2023-09-04] VITALS (7 sets, daily range): BP systolic 131–153; BP diastolic 76–82; PULSE 79–86; RESP 12–18; TEMP 36.4–36.6; O2SAT 96–99; BMI 46.5
[2023-09-04 09:58] LABS: UPreg QC Valid YES; Urine Pregnancy NEGATIVE (NEGATIVE)
[2023-09-04] MEDS: Lactated Ringers 1,000 ML 100 ML IVCONT (10:11)
--- NOTE | 2023-09-04 10:35 | HO.ANESPROP2 ---
Documented by User: Elisa Cho NP 09/03/23 10:18 HPI - Anesthesia Eval Consult details Narrative: 48yo F for Left Knee Arthroscopy, partial medial meniscectomy, possible lateral meniscectomy s/p Left Sacroiliac Joint Fusion 12/23/22 with GA-ETT 7 Follows cardiology for murmur, QT prolongation, PVCs. Last office visit 07/2023. Cleared for surgery *Multiple Med Allergies* PMFSH Active Problems Active Problems: All Active Problems (Updated 09/02/23 @ 10:40 by Maci Tyler RN) Tear of medial meniscus of left knee (Acute) Left knee pain (Acute) COVID-19 (Acute) Muscle spasm (Acute) SI (sacroiliac) joint dysfunction (Acute) Preprocedural examination (Acute) Sacroiliac joint pain (Acute) Spondylosis of lumbosacral spine with radiculopathy (Acute) Back pain (Acute) PCOS (polycystic ovarian syndrome) (Acute) Asthma (Acute) Sacroiliac joint dysfunction of right side (Acute) Past Medical History Medical History (Updated 09/02/23 @ 10:40 by Maci Tyler RN) Hx MRSA infection (~2019) Wears glasses Wears hearing aid in both ears Leukocytosis Ear piercing ALMA DELIA (obstructive sleep apnea) Personal history of COVID-19 Renal cyst Anemia Prolonged QT interval Murmur, cardiac Thyroid condition Essential hypertension Sacroiliac joint dysfunction of right side Asthma PCOS (polycystic ovarian syndrome) Family History Family history of problems with anesthesia: No Surgical History Surgical History (Updated 09/02/23 @ 10:54 by Maci Tyler RN) S/P fusion of sacroiliac joint (12/23/22) History of S/P left knee arthroscopy Status post arthroscopy of shoulder H/O gastric sleeve History of ankle surgery History of laparoscopic partial gastrectomy History of Problems with Anesthesia: No Social History Social History (Updated 09/02/23 @ 10:37 by Maci Tyler RN) Household Members: Spouse, Family and Children Housing: House Are you a primary career development specialist to a significant other at home: Yes (5 year old daughter) Do you presently have visiting nurse or other home services: No Alcohol intake: former Patient Tobacco Use Status: Never used Tobacco e-Cigarette/Vaping Use: Never Used Use of substances other than those prescribed or required for medical reasons: No Have you been hit, kicked, punched, or otherwise hurt by someone within the past year? If so, by whom?: No Are you DNR?: No Advance Directives: No Advance Directives Information Provided: Yes Advance Directives on File: No Recently lost weight without trying: No Patient : No FDLMP: 08/28/2023 : No Poor oral hygiene: No Meds Allergies Allergy/AdvReac Type Severity Reaction Status Date / Time amoxicillin Allergy Severe DIFFICULTY Verified 08/26/23 08:51 BREATHING clavulanic acid Allergy Severe DIFFICULTY Verified 08/26/23 08:51 BREATHNG nabumetone Allergy Severe Depression Verified 08/26/23 08:51 Penicillins Allergy Severe Shortness Verified 08/26/23 08:51 of Breath, itching sulfamethoxazole Allergy Severe DIFFICULTY Verified 08/26/23 08:51 BREATHING, anaphylaxis trimethoprim Allergy Severe DIFFICULTY Verified 08/26/23 08:51 BREATHING, anaphylaxis azithromycin Allergy Intermediate DIFFICULTY Verified 08/26/23 08:51 BREATHING hydrocodone Allergy Intermediate DIFFICULTY Verified 08/26/23 08:51 BREATHING levofloxacin Allergy Intermediate AGITATION-CAN Verified 08/26/23 08:51 TAKE IV, BUT NOT PO ondansetron [From Zofran] Allergy Intermediate r/t Verified 08/26/23 08:51 prolonged QT rizatriptan [RIZATRIPTAN] Allergy Intermediate HIVES Verified 08/26/23 08:51 diphenhydramine AdvReac Unknown told to Verified 08/26/23 08:51 [From BENADRYL] avoid From REGLAN Allergy Severe DYSPHORIA Uncoded 12/23/22 08:00 Active Medications: Current Medications Clindamycin Phosphate (Cleocin) 900 mg in 50 mls @ 50 mls/hr IV PREOP ONE Stop: 09/04/23 06:14 Home Medications Medication Instructions Recorded Confirmed Last Taken Type cetirizine 10 mg capsule (All Day 10 mg PO DAILY PRN Allergy Symptoms 11/14/20 09/02/23 Unknown History Allergy (cetirizine)) cholecalciferol (vitamin D3) 125 125 mcg PO DAILY 11/14/20 09/02/23 Unknown History mcg (5,000 unit) capsule vitamin B complex (B 1 tab PO DAILY 11/14/20 09/02/23 Unknown History Complex-Vitamin B12 tablet) albuterol sulfate 90 mcg/actuation 2 puff PO Q4-6H PRN Shortness Of 01/14/22 09/02/23 Unknown History aerosol inhaler (ProAir HFA) Breath Or Wheezing meloxicam 15 mg tablet 15 mg PO DAILY 01/14/22 09/02/23 12/16/22 History omeprazole 20 mg capsule,delayed 20 mg PO DAILY 01/14/22 09/02/23 Unknown History release amlodipine 10 mg tablet 10 mg PO DAILY 12/04/22 09/02/23 12/23/22 07:30 History carvedilol 3.125 mg tablet 3.125 mg PO BID 12/04/22 09/02/23 12/23/22 07:30 History fluticasone propionate 110 2 puff inhalation 12/04/22 08/26/23 Unknown History mcg/actuation HFA aerosol inhaler (Flovent HFA) fluticasone propionate 50 1 - 2 spray intranasal QAM 12/04/22 09/02/23 Unknown History mcg/actuation nasal spray,suspension polyethylene glycol 3350 17 17 g PO DAILY PRN Constipation 12/04/22 09/02/23 Unknown History gram/dose oral powder (Miralax) iron dextran IV 12/23/22 08/26/23 12/12/22 History diazepam 5 mg tablet (Valium) 5 mg PO TID PRN Anxiety 09/02/23 09/02/23 Unknown History methocarbamol 750 mg tablet 750 mg PO QID 09/02/23 09/02/23 Unknown History Exam Height,Weight and Vital Signs: Height 5 ft 3 in Weight 117.934 kg Pertinent Lab Results Pertinent Lab Results: 09/2022 WBC 12.8 (H) Hgb 11.4 (L) Hct 35.7 (L) Plt 395k CMP all WNL Narrative Narrative: EKG 05/2022 NSR @ 97 Prolonged QT (QTc= 492) No significant change from 06/2018 ECHO 09/2022 1. LV size normal 2. LV wall thickness is normal 3. Overall LV systolic function is normal with an EF 60-65% 4. Gr II diastolic dysfunction with elevated LA pressure 5. LA size is normal 6. RV systolic function is normal 7. Trace MR 8. Mild pulmonary htn 9. No prior echo for comparison Assessment and Plan Assessment Anesthesia Assessment: Chart Reviewed Final Anesthetic Review Family History of Problems with Anesthesia: No History of Problems with Anesthesia: No Documented by User: Jessica Mary DO 09/04/23 10:37 [facility] Past Medical History Medical History (Updated 09/02/23 @ 10:40 by Maci Tyler, RN) Hx MRSA infection (~2018) Wears glasses Wears hearing aid in both ears Leukocytosis Ear piercing ALMA DELIA (obstructive sleep apnea) Personal history of COVID-19 Renal cyst Anemia Prolonged QT interval Murmur, cardiac Thyroid condition Essential hypertension Sacroiliac joint dysfunction of right side Asthma PCOS (polycystic ovarian syndrome) Family History Family history of problems with anesthesia: No Surgical History Surgical History (Updated 09/02/23 @ 10:54 by Maci Tyler, RN) S/P fusion of sacroiliac joint (12/23/22) History of S/P left knee arthroscopy Status post arthroscopy of shoulder H/O gastric sleeve History of ankle surgery History of laparoscopic partial gastrectomy History of Problems with Anesthesia: No Social History Social History (Updated 09/02/23 @ 10:37 by Maci Tyler, RN) Household Members: Spouse, Family and Children Housing: House Are you a primary career development specialist to a significant other at home: Yes (5 year old daughter) Do you presently have visiting nurse or other home services: No Alcohol intake: former Patient Tobacco Use Status: Never used Tobacco e-Cigarette/Vaping Use: Never Used Use of substances other than those prescribed or required for medical reasons: No Have you been hit, kicked, punched, or otherwise hurt by someone within the past year? If so, by whom?: No Are you DNR?: No Advance Directives: No Advance Directives Information Provided: Yes Advance Directives on File: No Recently lost weight without trying: No Patient : No FDLMP: 08/28/2023 : No Poor oral hygiene: No Meds Allergies Allergy/AdvReac Type Severity Reaction Status Date / Time amoxicillin Allergy Severe DIFFICULTY Verified 08/26/23 08:51 BREATHING clavulanic acid Allergy Severe DIFFICULTY Verified 08/26/23 08:51 BREATHNG nabumetone Allergy Severe Depression Verified 08/26/23 08:51 Penicillins Allergy Severe Shortness Verified 08/26/23 08:51 of Breath, itching sulfamethoxazole Allergy Severe DIFFICULTY Verified 08/26/23 08:51 BREATHING, anaphylaxis trimethoprim Allergy Severe DIFFICULTY Verified 08/26/23 08:51 BREATHING, anaphylaxis azithromycin Allergy Intermediate DIFFICULTY Verified 08/26/23 08:51 BREATHING hydrocodone Allergy Intermediate DIFFICULTY Verified 08/26/23 08:51 BREATHING levofloxacin Allergy Intermediate AGITATION-CAN Verified 08/26/23 08:51 TAKE IV, BUT NOT PO ondansetron [From Zofran] Allergy Intermediate r/t Verified 08/26/23 08:51 prolonged QT rizatriptan [RIZATRIPTAN] Allergy Intermediate HIVES Verified 08/26/23 08:51 diphenhydramine AdvReac Unknown told to Verified 08/26/23 08:51 [From BENADRYL] avoid From REGLAN Allergy Severe DYSPHORIA Uncoded 12/23/22 08:00 Home Medications Medication Instructions Recorded Confirmed Last Taken Type cetirizine 10 mg capsule (All Day 10 mg PO DAILY PRN Allergy Symptoms 11/14/20 09/02/23 Unknown History Allergy (cetirizine)) cholecalciferol (vitamin D3) 125 125 mcg PO DAILY 11/14/20 09/02/23 Unknown History mcg (5,000 unit) capsule vitamin B complex (B 1 tab PO DAILY 11/14/20 09/02/23 Unknown History Complex-Vitamin B12 tablet) albuterol sulfate 90 mcg/actuation 2 puff PO Q4-6H PRN Shortness Of 01/14/22 09/02/23 Unknown History aerosol inhaler (ProAir HFA) Breath Or Wheezing meloxicam 15 mg tablet 15 mg PO DAILY 01/14/22 09/02/23 12/16/22 History omeprazole 20 mg capsule,delayed 20 mg PO DAILY 01/14/22 09/02/23 Unknown History release amlodipine 10 mg tablet 10 mg PO DAILY 12/04/22 09/02/23 12/23/22 07:30 History carvedilol 3.125 mg tablet 3.125 mg PO BID 12/04/22 09/02/23 12/23/22 07:30 History fluticasone propionate 110 2 puff inhalation 12/04/22 08/26/23 Unknown History mcg/actuation HFA aerosol inhaler (Flovent HFA) fluticasone propionate 50 1 - 2 spray intranasal QAM 12/04/22 09/02/23 Unknown History mcg/actuation nasal spray,suspension polyethylene glycol 3350 17 17 g PO DAILY PRN Constipation 12/04/22 09/02/23 Unknown History gram/dose oral powder (Miralax) iron dextran IV 12/23/22 08/26/23 12/12/22 History diazepam 5 mg tablet (Valium) 5 mg PO TID PRN Anxiety 09/02/23 09/02/23 Unknown History methocarbamol 750 mg tablet 750 mg PO QID 09/02/23 09/02/23 Unknown History Exam Exam Date and Time: September 04, 2023 1035 Height,Weight and Vital Signs: Height 5 ft 3 in Weight 117.934 kg Height 5 ft 3 in Weight 119.04 kg Vital Signs Temperature 97.5 F 09/04/23 10:09 Pulse Rate 83 09/04/23 10:09 Respiratory Rate 18 09/04/23 10:09 Blood Pressure 153/80 H 09/04/23 10:09 Pulse Oximetry 96 09/04/23 10:09 Oxygen Delivery Method Room Air 09/04/23 10:09 Temperature 97.5 F 09/04/23 10:09 Pulse Rate 83 09/04/23 10:09 Respiratory Rate 18 09/04/23 10:09 Blood Pressure 153/80 H 09/04/23 10:09 Pulse Oximetry 96 09/04/23 10:09 Oxygen Delivery Method Room Air 09/04/23 10:09 Airway Mallampati Class: II TM Dist: >3cm Neck ROM: Full Loose/Missing/Broken Teeth: No Heart: S1S2 Lungs: CTAB Assessment and Plan Assessment Anesthesia Assessment: Anesthesia Plan Discussed and Chart Reviewed Final Anesthetic Review Family History of Problems with Anesthesia: No History of Problems with Anesthesia: No NPO: Yes ASA Class: III Final Preanesthetic Review: No Changes in Pt Med Stat, Meds/Allgs Chart Reviewed, Consent Obtained/Reviewed and Anes Risks/Benef Reviewed Patient Risk: Intermediate Procedure Risk: Low Anesthetic Plan Anesthetic Plan: GA and Agree w/ Assess. and Plan Disposition: Standard PACU
--- NOTE | 2023-09-04 13:01 | PM.OP ---
Brief Operative Note Date of Service: 09/04/23 Pre-op diagnosis: Left knee medial meniscus tear, left knee degenerative joint disease Post-op diagnosis: same Procedure: Left knee diagnostic arthroscopy with left knee arthroscopic partial medial meniscectomy, left knee arthroscopic chondroplasty of the medial femoral condyle and the undersurface of the patella Implants: none Surgeon: Sonny Puga MD Anesthesia: GLMA Was an Blocking Machine Tender used for this Procedure?: No Estimated blood loss (mL): 10 Pathology: none sent Condition: stable Disposition: PACU
--- NOTE | 2023-09-04 13:02 | W.PM.OPN ---
Operative Note Operative Note Date of Service: 09/04/23 Narrative: After the patient was identified as Kyle Pool and her left knee was initialed by myself they were brought to the operating room where general anesthesia was induced by the anesthesiologist in routine fashion. Because of the patient's allergy to penicillin she was given 900 mg of IV clindamycin preoperatively for infection prophylaxis. The patient's left lower extremity was prepped and draped in sterile fashion. A formal time-out was completed. Marcaine was injected into the planned incision sites as well as the patient's left knee joint. A #11 scalpel blade was used to make an anterolateral portal 1 cm proximal to the joint line and 1 cm lateral to the patellar tendon. Blunt trocar technique was used to enter the suprapatellar pouch with the knee in extension. Diagnostic arthroscopy showed multiple bands of thickened plica which would be excised at the end of the procedure. There were no loose bodies or abnormalities found in either the medial or lateral gutters. The articular surface of the patella showed diffuse grades 2 and 3 degenerative changes. The trochlear groove articular surface showed diffuse grade 2 degenerative changes. The patient's knee was flexed to 45 degrees and a valgus force was placed upon it. The medial compartment was entered. An anteromedial portal was made 1 cm proximal to the joint line and 1 cm medial to the patellar tendon. Probing of the medial meniscus showed a radial tear of the anterior horn. A partial medial meniscectomy was performed using the arthroscopic shaver. Following the partial meniscectomy the remainder of the meniscus tissue was stable. There were diffuse grades 3 and 4 degenerative changes of the medial femoral condyle as well as grades 1 and 2 degenerative changes of the medial tibial plateau. The articular surface of the medial femoral condyle was then made smooth using the arthroscopic shaver. The articular surface of the medial tibial plateau was already smooth so no chondroplasty was indicated. The patient's knee was placed into a neutral position. There was no injury to the anterior cruciate ligament. The patient's knee was then placed in the figure of 4 position and the lateral compartment was entered. There was no evidence of lateral meniscus tearing. There were minimal degenerative changes of the lateral femoral condyle and lateral tibial plateau. The patient's knee was once again brought into extension and the suprapatellar pouch was entered. The arthroscopic shaver and the ArthroCare Wand were used to excise the thickened bands of plica. The undersurface of the patella was then made smooth using the arthroscopic shaver. The articular surface of the trochlear groove was already smooth so no chondroplasty was indicated. The knee joint was irrigated and then drained. All arthroscopic instruments were removed. The 2 portals were closed with 3-0 nylon interrupted suture. The knee joint was injected with Marcaine. Dry sterile dressing and Uri bandages were placed over the patient's knee. The patient was awoken and extubated in the operating room. The patient was transferred to the recovery room in stable condition.
[2023-09-04] MEDS: oxyCODONE HCl Immed Release 5 MG TABLET 10 MG PO (13:35)
== END 2023-09-04 14:30 | disposition home or self-care (01) ==
PROVIDERS: Nurse Practitioner; PCP Internal Medicine; Visit Provider Orthopaedic Surgery
PROC: (CPT 29870; principal; 2023-09-04 11:20)
DX: S83.242A Other tear of medial meniscus, current injury, left knee, initial encounter (principal); S83.282A Other tear of lateral meniscus, current injury, left knee, initial encounter; X50.1XXA Overexertion from prolonged static or awkward postures, initial encounter; Y93.89 Activity, other specified; Y92.018 Other place in single-family (private) house as the place of occurrence of the external cause; Y99.9 Unspecified external cause status
CPT/HCPCS: 29880; 81025; J0171; J0696; J0736; J1100; J1885; J2704; J2795; J3010

== ENCOUNTER → 2023-09-04 09:35 | Outpatient (BNV) | payer MEDICAID, SELFPAY | PROVIDERS: PCP Internal Medicine; Visit Provider Orthopaedic Surgery | DX: S83.242A Other tear of medial meniscus, current injury, left knee, initial encounter (principal) | CPT/HCPCS: 29881 ==

== ENCOUNTER 2023-09-17 09:53 | Outpatient (AMB) | payer MEDICAID, SELFPAY ==
--- NOTE | 2023-09-17 09:54 | A.OFFVIS_ITS ---
Intake Intake Visit Reasons: PO-Lt Knee 09/04/23 Intake Note: Kyle corrigan 48 year old female presents today for a post operative left knee on 09/04/23 Patient reports she is very sore and jerks while she is sitting and she still has some swelling. She states she might be over doing it. She states that she would like to try physical therapy. Allergies amoxicillin Allergy (Severe, Verified 09/17/23 09:59) DIFFICULTY BREATHING clavulanic acid Allergy (Severe, Verified 09/17/23 09:59) DIFFICULTY BREATHNG nabumetone Allergy (Severe, Verified 09/17/23 09:59) Depression Penicillins Allergy (Severe, Verified 09/17/23 09:59) Shortness of Breath, itching sulfamethoxazole Allergy (Severe, Verified 09/17/23 09:59) DIFFICULTY BREATHING, anaphylaxis trimethoprim Allergy (Severe, Verified 09/17/23 09:59) DIFFICULTY BREATHING, anaphylaxis azithromycin Allergy (Intermediate, Verified 09/17/23 09:59) DIFFICULTY BREATHING hydrocodone Allergy (Intermediate, Verified 09/17/23 09:59) DIFFICULTY BREATHING levofloxacin Allergy (Intermediate, Verified 09/17/23 09:59) AGITATION-CAN TAKE IV, BUT NOT PO ondansetron [From Zofran] Allergy (Intermediate, Verified 09/17/23 09:59) r/t prolonged QT rizatriptan [RIZATRIPTAN] Allergy (Intermediate, Verified 09/17/23 09:59) HIVES diphenhydramine [From BENADRYL] Adverse Reaction (Unknown, Verified 09/17/23 09:59) told to avoid From REGLAN Allergy (Severe, Uncoded 12/23/22 08:00) DYSPHORIA HPI PO-Lt Knee 09/04/23 DR ROMANO Details 48-year-old female who presents in the o ice today 13 days status post left knee arthroscopic partial medial meniscectomy, left knee arthroscopic chondroplasty of the medial femoral condyle and the undersurface of the patella, which was performed on 09/04/[address] Puga. The patient reports the knee is sore and jerks while she is sitting. She confirms continued edema. She states she might be overdoing it. She is interested in attending formal physical therapy. [facility] Medical History Hx MRSA infection (~2019) Wears glasses Wears hearing aid in both ears Leukocytosis Ear piercing ALMA DELIA (obstructive sleep apnea) Personal history of COVID-19 Renal cyst Anemia Prolonged QT interval Murmur, cardiac Thyroid condition Essential hypertension Sacroiliac joint dysfunction of right side Asthma PCOS (polycystic ovarian syndrome) Surgical History (Updated 09/17/23 @ 10:07 by Gabby Marmolejo) Hx of arthroscopy of left knee (09/04/23) S/P fusion of sacroiliac joint (12/23/22) History of S/P left knee arthroscopy Status post arthroscopy of shoulder H/O gastric sleeve History of ankle surgery History of laparoscopic partial gastrectomy Social History Household Members: Spouse, Family and Children Housing: House Are you a primary primary care nurse to a significant other at home: Yes (5 year old daughter) Do you presently have visiting nurse or other home services: No Alcohol intake: former Patient Tobacco Use Status: Never used Tobacco e-Cigarette/Vaping Use: Never Used Review of Systems Const All systems reviewed & are unremarkable except as noted in HPI and below Physical Exam Const General: cooperative, healthy appearing and no acute distress Resp Effort & Inspection: normal respiratory effort and able to speak in complete sentences Cardio Rate: regular rate Peripheral pulses: Peripheral pulses 2+ throughout GI Palpation (GI): Soft to palpation Skin Lesions: no lesions Rashes: no rashes Extrem Other: Left knee: Incision site is clean, dry, and intact. Sutures intact. No surrounding erythema or drainage. No signs of infection. ROM is 0-90 degrees with pain. NVI. Assessment & Plan Assessment & Plan (1) S/P left knee arthroscopy: Comment: 2002 Left knee arthroscopic partial medial meniscectomy, left knee arthroscopic chondroplasty of the medial femoral condyle and the undersurface of the patella 09/04/2023 Code(s): Z98.890 - Other specified postprocedural states Plan Ms. Alves is a 48-year-old female who presents in the office today 13 days status post left knee arthroscopic partial medial meniscectomy, left knee arthroscopic chondroplasty of the medial femoral condyle and the undersurface of the patella, which was performed on 09/04/[address] Puga. The patient reports the knee is sore and jerks while she is sitting. She confirms continued edema. She states she might be overdoing it. She is interested in attending formal physical therapy. Sutures were removed and steri-stripes were applied. I encouraged the use of anti-inflammatory to aid with edema. A prescription refill for Meloxicam 15 mg PO daily was placed while in the office today. I also placed a refill of Dilaudid PO with a wean to 1mg q8hrs prn pain. A referral was placed for the patient to attend formal physical therapy. Follow up will be 4 weeks for a ROM check, or sooner if needed. Orders: Orders PT Evaluation and Treatment Today S83.242A - Other tear of medial meniscus, current injury, left knee, initial encounter Medications: Changed From meloxicam 15 mg PO DAILY To meloxicam 15 mg PO DAILY 30 tabs 0RF 30 days From hydromorphone (Dilaudid) Partial Fill upon patient request. 2 mg PO Q8H 20 tabs 0RF To hydromorphone (Dilaudid) Partial Fill upon patient request. 1 mg (1/2 x 2 mg) PO Q8H 11 tabs 0RF 7 days Patient Instructions: Scribed by Gabby Marmolejo electromedical equipment repairer, for Giuliana Moscoso PA-C on 09/17/2023 at 9:49 am, EST. Coding Level of Care Code Global (42566) Diagnoses S/P left knee arthroscopy Z98.890
== END 2023-09-17 10:16 | disposition home or self-care (01) ==
PROVIDERS: PCP Internal Medicine; Visit Provider Physician Assistant
DX: Z98.890 Other specified postprocedural states (principal)
CPT/HCPCS: 99024

== ENCOUNTER → 2023-09-17 09:53 | Outpatient (BNVA) | payer MEDICAID, SELFPAY | PROVIDERS: PCP Internal Medicine; Visit Provider Physician Assistant | DX: Z47.89 Encounter for other orthopedic aftercare (principal); Z98.890 Other specified postprocedural states | CPT/HCPCS: 99212 ==

== ENCOUNTER 2023-09-22 10:58 | Outpatient (AMB) | payer MEDICAID, SELFPAY ==
--- NOTE | 2023-09-22 11:02 | MHC.OFFVISWM ---
Intake VS Expanded 09/22/23 11:10 BP 162/80 H Blood Pressure Location Rt brachial Blood Pressure Position Sitting Pulse 89 Pulse Source Pulse Oximeter Temp 96.7 F L Temperature Source Temporal Artery Scan Pulse Oximetry 95 Oxygen Delivery Method Room Air Height 5 ft 2 in Weight 265 lb 12.8 oz BMI 48.6 Body Fat % 42.9 Body Fat Mass 114.0 Fat Free Mass 151.6 Visceral Fat Rating 15.0 Body Water % 40.7 Body Water Mass 108.2 Muscle Mass/Score 144.0 Basal Metabolic Rate/Score 2,121 Intake Visit Reasons: (OV) PO LSG 12/14/14 Allergies amoxicillin Allergy (Severe, Verified 09/22/23 11:07) DIFFICULTY BREATHING clavulanic acid Allergy (Severe, Verified 09/22/23 11:07) DIFFICULTY BREATHNG nabumetone Allergy (Severe, Verified 09/22/23 11:07) Depression Penicillins Allergy (Severe, Verified 09/22/23 11:07) Shortness of Breath, itching sulfamethoxazole Allergy (Severe, Verified 09/22/23 11:07) DIFFICULTY BREATHING, anaphylaxis trimethoprim Allergy (Severe, Verified 09/22/23 11:07) DIFFICULTY BREATHING, anaphylaxis azithromycin Allergy (Intermediate, Verified 09/22/23 11:07) DIFFICULTY BREATHING hydrocodone Allergy (Intermediate, Verified 09/22/23 11:07) DIFFICULTY BREATHING levofloxacin Allergy (Intermediate, Verified 09/22/23 11:07) AGITATION-CAN TAKE IV, BUT NOT PO ondansetron [From Zofran] Allergy (Intermediate, Verified 09/22/23 11:07) r/t prolonged QT rizatriptan [RIZATRIPTAN] Allergy (Intermediate, Verified 09/22/23 11:07) HIVES diphenhydramine [From BENADRYL] Adverse Reaction (Unknown, Verified 09/22/23 11:07) told to avoid From REGLAN Allergy (Severe, Uncoded 12/23/22 08:00) DYSPHORIA Medication List - Last Reconciled 09/22/23 by JESSICA Mtz albuterol sulfate 90 mcg/actuation (ProAir HFA) 2 puffs PO Q4-6H PRN amlodipine 10 mg PO DAILY bisacodyl 10 mg (2 x 5 mg) PO BEDTIME carvedilol 3.125 mg PO BID cetirizine (All Day Allergy (cetirizine)) 10 mg PO DAILY PRN cholecalciferol (vitamin D3) 125 mcg PO DAILY diazepam (Valium) 5 mg PO TID PRN dicyclomine 20 mg PO QID PRN docusate sodium (Colace) 100 mg PO BID PRN fluticasone propionate 50 mcg/actuation 1 - 2 sprays intranasal QAM fluticasone propionate 110 mcg/actuation (Flovent HFA) 2 puffs inhalation hydromorphone (Dilaudid) 1 mg (1/2 x 2 mg) PO Q8H 7 days ibuprofen 600 mg PO TID PRN [iron dextran IV] meloxicam 15 mg PO DAILY 30 days methocarbamol 750 mg PO QID omeprazole 20 mg PO DAILY polyethylene glycol 3350 (Miralax) 17 grams PO DAILY PRN vitamin B complex (B Complex-Vitamin B12 tablet) 1 tab PO DAILY HPI HPI Comments History of Present Illness Details This?is a?48?yo female who is s/p LSG 12/14/[address] Dan. Weight at last visit on 10/08/2018 was 232.4 pounds; weight gain of 33.4lbs since last visit.? No complaints of nausea, emesis, abdominal pain or reflux, or constipation. Recently had knee surgery, reports a lot of soreness. Has a lot of sugar and salt cravings. Snacks out of habit, emotional eating. Has had a lot of family losses in the last few years. Has a counselor. Present meal plan includes: not following a plan Exercise routine includes: wants to use [email or web address]anchez [facility] Medical History (Updated 09/22/23 @ 11:33 by JESSICA Mtz) Hx MRSA infection (~2019) Wears glasses Wears hearing aid in both ears Leukocytosis Ear piercing AL[place] DELIA (obstructive sleep apnea) Personal history of COVID-19 Renal cyst Anemia Prolonged QT interval Murmur, cardiac Thyroid condition Essential hypertension Sacroiliac joint dysfunction of right side Asthma PCOS (polycystic ovarian syndrome) Surgical History (Updated 09/22/23 @ 11:31 by JESSICA Mtz) Hx of arthroscopy of left knee (09/04/23) S/P fusion of sacroiliac joint (12/23/22) History of S/P left knee arthroscopy Status post arthroscopy of shoulder H/O gastric sleeve History of ankle surgery History of laparoscopic partial gastrectomy Social History Household Members: Spouse, Family and Children Housing: House Are you a primary healthcare specialist to a significant other at home: Yes (5 year old daughter) Do you presently have visiting nurse or other home services: No Alcohol intake: former Patient Tobacco Use Status: Never used Tobacco e-Cigarette/Vaping Use: Never Used Physical Exam Vital Signs: Last Vital Signs Temp 96.7 F L 09/22/23 11:10 Pulse 89 09/22/23 11:10 BP 162/80 H 09/22/23 11:10 Pulse Ox 95 09/22/23 11:10 Oxygen Delivery Method Room Air 09/22/23 11:10 BMI result Body Mass Index 48.6 Assessment & Plan Assessment & Plan (1) H/O gastric sleeve: Comment: 2012 Code(s): Z90.3 - Acquired absence of stomach [part of] (2) Morbid obesity: Code(s): E66.01 - Morbid (severe) obesity due to excess calories Plan New meal plan with 100+ grams protein: Each day have 2 Slimfast shakes (20g), one Quest bar or chips (20g), and two meals each with 6 forkfuls protein, plus 6ff salad/veg. Pt will resume exercise via preferred [employer], try to perform exercise most days of the week. Labs ordered. Meal plan texted to pt. RTC 6 weeks for accountability. Patient is morbidly obese and is not considered stable at this time. I spent a total of 30 minutes reviewing/updating records, examining the patient and counseling the patient on weight management as detailed above. Orders: Orders Insulin Today Z90.3 - Acquired absence of stomach [part of] Hemoglobin A1c Today Z90.3 - Acquired absence of stomach [part of] Lipid Panel Today Z90.3 - Acquired absence of stomach [part of] IRON PROFILE Today Z90.3 - Acquired absence of stomach [part of] Zinc Today Z90.3 - Acquired absence of stomach [part of] C Reactive Protein Today Z90.3 - Acquired absence of stomach [part of] Complete Blood Count Auto Diff Today Z90.3 - Acquired absence of stomach [part of] Comprehensive Met. Panel Today Z90.3 - Acquired absence of stomach [part of] Vitamin B12 and Folate Today Z90.3 - Acquired absence of stomach [part of] Vitamin B1 Today Z90.3 - Acquired absence of stomach [part of] Vitamin A Today Z90.3 - Acquired absence of stomach [part of] TSH reflex Free T4 Today Z90.3 - Acquired absence of stomach [part of] Ferritin Today Z90.3 - Acquired absence of stomach [part of] Vitamin D 25-OH Total Today Z90.3 - Acquired absence of stomach [part of] Coding Level of Care Code Est Pt Level 4 (89155) Diagnoses H/O gastric sleeve Z90.3 Morbid obesity E66.01
[2023-09-22 11:10] VITALS: BP 162/80; PULSE 89; TEMP 35.9; O2SAT 95; BMI 48.6
== END 2023-09-22 11:36 | disposition home or self-care (01) ==
PROVIDERS: PCP Internal Medicine; Visit Provider Physician Assistant Surgical
DX: E66.01 Morbid (severe) obesity due to excess calories (principal); Z68.42 Body mass index [BMI] 45.0-49.9, adult; Z90.3 Acquired absence of stomach [part of]; Z98.84 Bariatric surgery status
CPT/HCPCS: 99214

== ENCOUNTER → 2023-09-22 10:58 | Outpatient (BNVA) | payer MEDICAID, SELFPAY | PROVIDERS: PCP Internal Medicine; Visit Provider Physician Assistant Surgical | DX: E66.01 Morbid (severe) obesity due to excess calories (principal); Z90.3 Acquired absence of stomach [part of]; Z68.42 Body mass index [BMI] 45.0-49.9, adult | CPT/HCPCS: 99212 ==

== ENCOUNTER 2023-10-09 17:37 | Outpatient (REF) | payer MEDICAID, SELFPAY ==
[2023-10-09 18:55] LABS: Influenza A PCR NEGATIVE (Negative); Influenza B PCR NEGATIVE (Negative); Resp Syncy Virus RNA Qual PCR NEGATIVE (Negative); SARS COV2 PCR INHOUSE NEGATIVE (Negative)
== END 2023-10-09 17:38 | disposition home or self-care (01) ==
LOC: HO.LNP 17:37
PROVIDERS: Visit Provider Emergency Medicine
DX: J02.9 Acute pharyngitis, unspecified (principal)
CPT/HCPCS: 0241U; 87070; 87147

== ENCOUNTER 2023-10-16 11:09 | Outpatient (AMB) | payer MEDICAID, SELFPAY ==
--- NOTE | 2023-10-16 11:14 | MHC.OFFVIS ---
Intake Vital Signs 10/16/23 11:15 Height 5 ft 2 in Weight 265 lb BMI 48.5 Intake Visit Reasons: PO-Lt Knee 09/04/23 Intake Note: Kyle is a 48 year old female who presents today for a post operative left knee on 09/04/23 Patient reports her pain has been getting worse for about a week now. She states that she notices it getting swollen. Allergies amoxicillin Allergy (Severe, Verified 10/16/23 11:18) DIFFICULTY BREATHING clavulanic acid Allergy (Severe, Verified 10/16/23 11:18) DIFFICULTY BREATHNG nabumetone Allergy (Severe, Verified 10/16/23 11:18) Depression Penicillins Allergy (Severe, Verified 10/16/23 11:18) Shortness of Breath, itching sulfamethoxazole Allergy (Severe, Verified 10/16/23 11:18) DIFFICULTY BREATHING, anaphylaxis trimethoprim Allergy (Severe, Verified 10/16/23 11:18) DIFFICULTY BREATHING, anaphylaxis azithromycin Allergy (Intermediate, Verified 10/16/23 11:18) DIFFICULTY BREATHING hydrocodone Allergy (Intermediate, Verified 10/16/23 11:18) DIFFICULTY BREATHING levofloxacin Allergy (Intermediate, Verified 10/16/23 11:18) AGITATION-CAN TAKE IV, BUT NOT PO ondansetron [From Zofran] Allergy (Intermediate, Verified 10/16/23 11:18) r/t prolonged QT rizatriptan [RIZATRIPTAN] Allergy (Intermediate, Verified 10/16/23 11:18) HIVES diphenhydramine [From BENADRYL] Adverse Reaction (Unknown, Verified 10/16/23 11:18) told to avoid From REGLAN Allergy (Severe, Uncoded 12/23/22 08:00) DYSPHORIA HPI PO-Lt Knee 09/04/23 HPI Details 48-year-old female who presents in the office today 6 weeks status post left knee arthroscopic partial medial meniscectomy, left knee arthroscopic chondroplasty of the medial femoral condyle and the under surface of the patella, which was performed on 09/04/[address] Puga. I last saw the patient in the office on 09/17/2023 at which time she was referred to physical therapy. A prescription refill for Meloxicam 15 mg PO daily was placed while in the office today. I also placed a refill of Dilaudid PO with a wean to 1 mg Q8H PRN for pain. While in the office today the patient reports her pain has been getting worse for about a week. She has also noticed some edema. [facility] Medical History (Updated 09/22/23 @ 11:33 by JESSICA Mtz) Hx MRSA infection (~2019) Wears glasses Wears hearing aid in both ears Leukocytosis Ear piercing AL[place] DELIA (obstructive sleep apnea) Personal history of COVID-19 Renal cyst Anemia Prolonged QT interval Murmur, cardiac Thyroid condition Essential hypertension Sacroiliac joint dysfunction of right side Asthma PCOS (polycystic ovarian syndrome) Surgical History (Updated 09/22/23 @ 11:31 by JESSICA Mtz) Hx of arthroscopy of left knee (09/04/23) S/P fusion of sacroiliac joint (12/23/22) History of S/P left knee arthroscopy Status post arthroscopy of shoulder H/O gastric sleeve History of ankle surgery History of laparoscopic partial gastrectomy Social History Household Members: Spouse, Family and Children Housing: House Are you a primary healthcare economics consultant to a significant other at home: Yes (5 year old daughter) Do you presently have visiting nurse or other home services: No Alcohol intake: former Patient Tobacco Use Status: Never used Tobacco e-Cigarette/Vaping Use: Never Used Review of Systems Const All systems reviewed & are unremarkable except as noted in HPI and below Physical Exam Vital Signs: BMI result Body Mass Index 48.5 Const General: cooperative, healthy appearing and no acute distress Resp Effort & Inspection: normal respiratory effort and able to speak in complete sentences Cardio Rate: regular rate Peripheral pulses: Peripheral pulses 2+ throughout GI Palpation (GI): Soft to palpation Skin Lesions: no lesions Rashes: no rashes Extrem Other: Left knee: Mild effusion. Prior incision site is well approximated and healing. No surrounding signs of infection. ROM is 0-100 degrees. NVI. Assessment & Plan Assessment & Plan (1) S/P left knee arthroscopy: Comment: 2002 Left knee arthroscopic partial medial meniscectomy, left knee arthroscopic chondroplasty of the medial femoral condyle and the undersurface of the patella 09/04/2023 DR Code(s): Z98.890 - Other specified postprocedural states Plan Ms. Pool is a 48-year-old female who presents in the office today 6 weeks status post left knee arthroscopic partial medial meniscectomy, left knee arthroscopic chondroplasty of the medial femoral condyle and the under surface of the patella, which was performed on 09/04/[address] Puga. I last saw the patient in the office on 09/17/2023 at which time she was referred to physical therapy. A prescription refill for Meloxicam 15 mg PO daily was placed while in the office today. I also placed a refill of Dilaudid PO with a wean to 1 mg Q8H PRN for pain. While in the office today the patient reports her pain has been getting worse for about a week. She has also noticed some edema. Patient will continue to work with physical therapy. She reports she has only been able to attend one session due to her children and her being sick. She has agreed to continue to work with physical therapy. For pain management the patient will continue to take the Meloxicam 15 mg PO daily and Acetaminophen as needed. Follow up will be in [address] Puga, or sooner if needed. Patient Instructions: Scribed by Gabby Marmolejo medical certification specialist, for Giuliana Moscoso PA-C on 10/16/2023 at 11:11 am, EST. Coding Level of Care Code Global (94501) Diagnoses S/P left knee arthroscopy Z98.890
[2023-10-16 11:15] VITALS: BMI 48.5
== END 2023-10-16 11:29 | disposition home or self-care (01) ==
PROVIDERS: PCP Internal Medicine; Visit Provider Physician Assistant
DX: Z98.890 Other specified postprocedural states (principal)
CPT/HCPCS: 99024

== ENCOUNTER → 2023-10-16 11:09 | Outpatient (BNVA) | payer MEDICAID, SELFPAY | PROVIDERS: PCP Internal Medicine; Visit Provider Physician Assistant | DX: Z47.89 Encounter for other orthopedic aftercare (principal); Z98.890 Other specified postprocedural states | CPT/HCPCS: 99212 ==

== ENCOUNTER 2023-10-26 13:31 | Outpatient (REF) | payer MEDICAID, SELFPAY ==
[2023-10-26 14:25] LABS: MANUAL DIFF FLAG NO
[2023-10-26 14:39] LABS: Basophils Absolute Auto 0.1 X10*3/uL (0.0-0.2); Basophils Percent Auto 0.6 % (0-2); Eosinophils Absolute Auto 0.4 X10*3/uL (0.0-0.4); Imm Gran Abs Auto 0.07 X10*3/uL (0.00-0.03); Imm Gran Pct Auto 0.6 % (0.0-0.4); Lymphocytes Absolute Auto 1.7 X10*3/uL (1.2-4.9); Lymphocytes Percent Auto 13.7 % (20-40); Mean Corpuscular HGB Conc 31.6 g/dl (31.0-35.0); Mean Corpuscular Hemoglobin 25.4 pg (27.0-33.0); Mean Corpuscular Volume 80.5 fL (80.0-98.0); Mean Platelet Volume 9.4 fL (9.4-12.3); Monocytes Absolute Auto 0.5 X10*3/uL (0.1-1.2); Monocytes Percent Auto 4.1 % (2-11); Neutrophils Absolute Auto 9.4 x10*3/uL (2.0-8.3); Platelet Count 403 X10*3/uL (160-400); Red Blood Count 4.72 X10*6/uL (4.20-5.50); Red Cell Distribution Width 14.5 % (11.0-16.0); White Blood Count 12.1 X10*3/uL (4.8-10.8)
[2023-10-26 15:09] LABS: Magnesium 2.1 mg/dL (1.6-2.6)
[2023-10-26 15:21] LABS: TSH reflex Free T4 0.44 uIU/mL (0.32-4.0)
[2023-10-26 15:33] LABS: Folate 10.8 ng/mL (> or = 4.0); Vitamin B12 430 pg/mL (200-900)
== END 2023-10-26 13:32 | disposition home or self-care (01) ==
LOC: HO.CHCLDS 13:31
PROVIDERS: Visit Provider Internal Medicine
DX: R53.83 Other fatigue (principal)
CPT/HCPCS: 36415; 82306; 82607; 82746; 83735; 84443; 85025

== ENCOUNTER 2023-10-29 10:00 | Outpatient (RCR) | payer MEDICAID, SELFPAY ==
--- NOTE | 2023-10-14 14:03 | MHC.PT.EP ---
[facility] [place] Office [place] Office [place] [facility] [address] Pranav Gomez [address] [phone] F: [phone] F: [phone] F: [phone] F: [phone] Physical Therapy Plan of Care Date of Evaluation: 10/14/23 Date of Surgery: Aug Diagnosis: L KNEE (PARTIAL MEDIAL MENISCECTOMY, ARTICULAR SURFACE OF MEDIAL FEMORAL CONDYLE MADE SMOOTH, ArthroCare Wand were used to excise the thickened bands of plica. The undersurface of the patella was then made smooth using the arthroscopic shaver. Assessment: Pt IS 48 YO F S/P PARTIAL MEDIAL MENISCECTOMY WITH MEDIAL FEMORAL CONDYLE SMOOTHING, UNDERSURFACE OF PATELLA SMOOTHING AND PLICA REMOVAL BY DR MARTIN ON 09/04/23 . REFERRED TO PT FROM [facility]THO [facility]). Pt REPORTS SHE HAS HAD DIFFICULTY GETTING TO PT BECAUSE OF SOME PERSONAL AND CHILDREN ILLNESSES. PRESENT TO PT TODAY (5WKS/5 DAYS PO) WITH LIMITED L KNEE ROM AND LIMITED L LE STRENGTH. GT WITHOUT AD WITHOUT SIGNIF ISSUE NOTED. SHOULD BENEFIT FROM PT TO ADDRESS THESE ISSUES Frequency and Duration: The patient will be seen 2X/WK X 6 WKS Short Term Goals: 1. INCREASED AWARNESS KNEE CARE 2. IMPROVED TRUST L LE WITHOUT INCIDENCE OF BUCKLING 3. Pt TO REPORT LESS SWELLING Staff Anesthesiologist Goals: 1. INCREASED L KNEE ROM 0-125 2. I HEP WITH DC EX PLAN 3. DECREASED L KNEE PAIN AT LEAST 50% WITH ADLS 4. IMPROVED LEFI (30/80 SOC) Treatment Plan: Modalities to reduce pain, spasms and effusion. Manual therapy to restore motion and function. Therapeutic exercise to improve strength and flexibility. Neuromuscular re-education for posture and balance. Therapeutic activities to return to functional activities of daily living. Electronically signed by: RENNY BRAY PT Please sign and return to therapist. Thank you for your referral.
--- NOTE | 2024-01-13 12:22 | MHC.PT.DC ---
[facility] [place] Office [place] Office [place] Office [address] Pranav Gmoez [address] [phone] F: [phone] F: [phone] F: [phone] F: [phone] Physical Therapy Discharge Report Diagnosis: L KNEE Date of Surgery: Aug Date of Evaluation: 10/14/23 Date of Discharge: 01/13/24 Treatments to Date: 6 Cancellations to Date: No Shows to Date: Discharge Status: Recommend MD Follow-up Visit Non-compliance Discharge Summary: PER LAST NOTE ON 11/16/23 BY QUINCY LOPEZ PT, DPT :'Pt NS for appt at 11:00am. Pt has had inconsistent attendance in recent weeks (history of daughter illness and other appts conflicting). In past session when attending PT pt struggled with swelling and edema with poor tolerance for bike. Was able to perform fair SLR with limited endurance. Pt reported poor tolerance for exercises. During past sessions pt would come in and multiple incidents of flare including bumping her knee and kneeling on it at home with limited compliance of icing/HEP noted. Pt is encouraged to follow up with her surgeon office at this time due to history of limited gains with PT, inconsistent attendance, and history of repeated NS.' Electronically signed by: RENNY BRAY PT Please sign and return to therapist. Thank you for your referral.
== END 2024-01-13 12:23 | disposition home or self-care (01) ==
LOC: HO.PTWFD 10:00
PROVIDERS: PCP Internal Medicine; Visit Provider Physician Assistant
DX: S83.242D Other tear of medial meniscus, current injury, left knee, subsequent encounter (principal)
CPT/HCPCS: 97110; 97161; 97535

== ENCOUNTER 2023-11-12 12:33 | Outpatient (AMB) | payer MEDICAID, SELFPAY ==
--- NOTE | 2023-11-12 12:34 | A.OFFVIS_ITS ---
Intake Visit Reasons: PO-Lt Knee 09/04/23 DR Intake Note: Kyle is a 48 year old female who presents for a follow up after her Left knee on 09/04/2023 . The patient reports mild to moderate intermittent discomfort in her left knee. She denies any fevers or chills. She has been taking tramadol which gives her fairly good relief. She continues with her weight loss diet program. Allergies amoxicillin Allergy (Severe, Verified 10/16/23 11:18) DIFFICULTY BREATHING clavulanic acid Allergy (Severe, Verified 10/16/23 11:18) DIFFICULTY BREATHNG nabumetone Allergy (Severe, Verified 10/16/23 11:18) Depression Penicillins Allergy (Severe, Verified 10/16/23 11:18) Shortness of Breath, itching sulfamethoxazole Allergy (Severe, Verified 10/16/23 11:18) DIFFICULTY BREATHING, anaphylaxis trimethoprim Allergy (Severe, Verified 10/16/23 11:18) DIFFICULTY BREATHING, anaphylaxis azithromycin Allergy (Intermediate, Verified 10/16/23 11:18) DIFFICULTY BREATHING hydrocodone Allergy (Intermediate, Verified 10/16/23 11:18) DIFFICULTY BREATHING levofloxacin Allergy (Intermediate, Verified 10/16/23 11:18) AGITATION-CAN TAKE IV, BUT NOT PO ondansetron [From Zofran] Allergy (Intermediate, Verified 10/16/23 11:18) r/t prolonged QT rizatriptan [RIZATRIPTAN] Allergy (Intermediate, Verified 10/16/23 11:18) HIVES diphenhydramine [From BENADRYL] Adverse Reaction (Unknown, Verified 10/16/23 11:18) told to avoid From REGLAN Allergy (Severe, Uncoded 12/23/22 08:00) DYSPHORIA Medication List - Last Reconciled 11/13/23 by Sonny Puga MD albuterol sulfate 90 mcg/actuation (ProAir HFA) 2 puffs PO Q4-6H PRN amlodipine 10 mg PO DAILY bisacodyl 10 mg (2 x 5 mg) PO BEDTIME carvedilol 3.125 mg PO BID cetirizine (All Day Allergy (cetirizine)) 10 mg PO DAILY PRN cholecalciferol (vitamin D3) 125 mcg PO DAILY diazepam (Valium) 5 mg PO TID PRN dicyclomine 20 mg PO QID PRN docusate sodium (Colace) 100 mg PO BID PRN fluticasone propionate 50 mcg/actuation 1 - 2 sprays intranasal QAM fluticasone propionate 110 mcg/actuation (Flovent HFA) 2 puffs inhalation hydromorphone (Dilaudid) 1 mg (1/2 x 2 mg) PO Q12H 7 days ibuprofen 600 mg PO TID PRN [iron dextran IV] meloxicam 15 mg PO DAILY methocarbamol 750 mg PO QID omeprazole 20 mg PO DAILY polyethylene glycol 3350 (Miralax) 17 grams PO DAILY PRN tramadol 50 mg PO Q12H PRN vitamin B complex (B Complex-Vitamin B12 tablet) 1 tab PO DAILY PFSH Medical History (Updated 09/22/23 @ 11:33 by JESSICA Mtz) Hx MRSA infection (~2019) Wears glasses Wears hearing aid in both ears Leukocytosis Ear piercing ALMA DELIA (obstructive sleep apnea) Personal history of COVID-19 Renal cyst Anemia Prolonged QT interval Murmur, cardiac Thyroid condition Essential hypertension Sacroiliac joint dysfunction of right side Asthma PCOS (polycystic ovarian syndrome) Surgical History (Updated 09/22/23 @ 11:31 by JESSICA Mtz) Hx of arthroscopy of left knee (09/04/23) S/P fusion of sacroiliac joint (12/23/22) History of S/P left knee arthroscopy Status post arthroscopy of shoulder H/O gastric sleeve History of ankle surgery History of laparoscopic partial gastrectomy Social History Household Members: Spouse, Family and Children Housing: House Are you a primary adult live in caregiver to a significant other at home: Yes (5 year old daughter) Do you presently have visiting nurse or other home services: No Alcohol intake: former Patient Tobacco Use Status: Never used Tobacco e-Cigarette/Vaping Use: Never Used Physical Exam Extrem Other: Left knee examination shows that the surgical incisions are well healed, no erythema, mild crepitus with range of motion, no instability Assessment & Plan Assessment & Plan (1) Left knee pain: Code(s): M25.562 - Pain in left knee Category: Medical Plan Ms. Pool continues to do fairly well after undergoing left knee arthroscopic surgery on 09/04/2023. She will continue with her home exercise program and weight loss program. Activity modifications were discussed at length with the patient. She will contact me prior to her follow-up appointment in 2 months should any questions or concerns arise. Feel free to call me at any time should questions regarding her orthopedic management arise.
== END 2023-11-12 12:57 | disposition home or self-care (01) ==
PROVIDERS: PCP Internal Medicine; Visit Provider Orthopaedic Surgery
DX: M25.562 Pain in left knee (principal)
CPT/HCPCS: 99024

== ENCOUNTER → 2023-11-12 12:33 | Outpatient (BNVA) | payer MEDICAID, SELFPAY | PROVIDERS: PCP Internal Medicine; Visit Provider Orthopaedic Surgery | DX: Z47.89 Encounter for other orthopedic aftercare (principal); M25.562 Pain in left knee | CPT/HCPCS: 99212 ==

== ENCOUNTER 2023-11-16 11:38 | Outpatient (AMB) | payer MEDICAID, SELFPAY ==
--- NOTE | 2023-11-16 11:35 | A.OFFVIS_ITS ---
VS Expanded 11/16/23 11:41 Height 5 ft 2 in Weight 265 lb BMI 48.5 Intake Visit Reasons: (Telephone) PO LSG 12/14/14 Allergies amoxicillin Allergy (Severe, Verified 10/16/23 11:18) DIFFICULTY BREATHING clavulanic acid Allergy (Severe, Verified 10/16/23 11:18) DIFFICULTY BREATHNG nabumetone Allergy (Severe, Verified 10/16/23 11:18) Depression Penicillins Allergy (Severe, Verified 10/16/23 11:18) Shortness of Breath, itching sulfamethoxazole Allergy (Severe, Verified 10/16/23 11:18) DIFFICULTY BREATHING, anaphylaxis trimethoprim Allergy (Severe, Verified 10/16/23 11:18) DIFFICULTY BREATHING, anaphylaxis azithromycin Allergy (Intermediate, Verified 10/16/23 11:18) DIFFICULTY BREATHING hydrocodone Allergy (Intermediate, Verified 10/16/23 11:18) DIFFICULTY BREATHING levofloxacin Allergy (Intermediate, Verified 10/16/23 11:18) AGITATION-CAN TAKE IV, BUT NOT PO ondansetron [From Zofran] Allergy (Intermediate, Verified 10/16/23 11:18) r/t prolonged QT rizatriptan [RIZATRIPTAN] Allergy (Intermediate, Verified 10/16/23 11:18) HIVES diphenhydramine [From BENADRYL] Adverse Reaction (Unknown, Verified 10/16/23 11:18) told to avoid From REGLAN Allergy (Severe, Uncoded 12/23/22 08:00) DYSPHORIA Medication List - Last Reconciled 11/16/23 by JESSICA Mtz albuterol sulfate 90 mcg/actuation (ProAir HFA) 2 puffs PO Q4-6H PRN amlodipine 10 mg PO DAILY bisacodyl 10 mg (2 x 5 mg) PO BEDTIME carvedilol 3.125 mg PO BID cetirizine (All Day Allergy (cetirizine)) 10 mg PO DAILY PRN cholecalciferol (vitamin D3) 125 mcg PO DAILY diazepam (Valium) 5 mg PO TID PRN dicyclomine 20 mg PO QID PRN docusate sodium (Colace) 100 mg PO BID PRN fluticasone propionate 50 mcg/actuation 1 - 2 sprays intranasal QAM fluticasone propionate 110 mcg/actuation (Flovent HFA) 2 puffs inhalation hydromorphone (Dilaudid) 1 mg (1/2 x 2 mg) PO Q12H 7 days ibuprofen 600 mg PO TID PRN [iron dextran IV] meloxicam 15 mg PO DAILY methocarbamol 750 mg PO QID omeprazole 20 mg PO DAILY polyethylene glycol 3350 (Miralax) 17 grams PO DAILY PRN tramadol 50 mg PO Q12H PRN vitamin B complex (B Complex-Vitamin B12 tablet) 1 tab PO DAILY HPI Comments Details: This?is a?48?yo female who is s/p LSG 12/14/[address] Dan. Weight at last visit on 09/22/2023 was 265.8 pounds with a BMI of 48.6, weight today is same.? No complaints of nausea, emesis, abdominal pain or reflux, or constipation. Pt's daughter has been sick a lot recently, pt also sick. Pt's father in law also struggling with dementia. Continues to have knee pain after surgery. Present meal plan includes: 2 Slimfast shakes (20g), one Quest bar or chips (20g), and two meals each with 6 forkfuls protein, plus 6ff salad/veg. Exercise routine includes: [employer] sanchez but hasn't been able [facility] Medical History (Updated 09/22/23 @ 11:33 by JESSICA Mtz) Hx MRSA infection (~2019) Wears glasses Wears hearing aid in both ears Leukocytosis Ear piercing AL[place] DELIA (obstructive sleep apnea) Personal history of COVID-19 Renal cyst Anemia Prolonged QT interval Murmur, cardiac Thyroid condition Essential hypertension Sacroiliac joint dysfunction of right side Asthma PCOS (polycystic ovarian syndrome) Surgical History (Updated 09/22/23 @ 11:31 by JESSICA Mtz) Hx of arthroscopy of left knee (09/04/23) S/P fusion of sacroiliac joint (12/23/22) History of S/P left knee arthroscopy Status post arthroscopy of shoulder H/O gastric sleeve History of ankle surgery History of laparoscopic partial gastrectomy Social History Household Members: Spouse, Family and Children Housing: House Are you a primary childcare teacher to a significant other at home: Yes (5 year old daughter) Do you presently have visiting nurse or other home services: No Alcohol intake: former Patient Tobacco Use Status: Never used Tobacco e-Cigarette/Vaping Use: Never Used Telehealth Telehealth Telehealth Platform: Telephone Location of provider rendering services: other Location of patient: address on file Patient Identification confirmed using: Name, : Yes Telehealth method: voice only Patient verbally consented to treatment: Yes Patient verbally consented to billing insurance company: Yes Patient informed of any privacy concerns related to visit: Yes Minutes spent on Phone/Video with Pt.: 15 Assessment & Plan Assessment & Plan (1) Morbid obesity: Code(s): E66.01 - Morbid (severe) obesity due to excess calories Category: Medical (2) H/O gastric sleeve: Comment: 2012 Code(s): Z90.3 - Acquired absence of stomach [part of] Category: Surgical Plan Sent pt healthy foods handout and exercise handout as protein products are cost prohibitive for her right now. Goal 100g protein per day and reintroduce e xercise. RTC 3 months and encouraged pt to reach out between visits via text. Patient is morbidly obese and is not considered stable at this time. I spent a total of 30 minutes reviewing/updating records, examining the patient and counseling the patient on weight management as detailed above.
[2023-11-16 11:41] VITALS: BMI 48.5
== END 2023-11-16 12:04 | disposition home or self-care (01) ==
LOC: HO.HBS 11:38
PROVIDERS: PCP Internal Medicine; Visit Provider Physician Assistant Surgical
DX: E66.01 Morbid (severe) obesity due to excess calories (principal); Z90.3 Acquired absence of stomach [part of]
CPT/HCPCS: 99214

== ENCOUNTER → 2023-11-16 11:38 | Outpatient (BNVA) | payer MEDICAID, SELFPAY | PROVIDERS: PCP Internal Medicine; Visit Provider Physician Assistant Surgical ==

== ENCOUNTER 2023-12-11 10:49 | Outpatient (AMB) | payer MEDICAID, SELFPAY ==
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
== END 2023-12-11 12:11 | disposition home or self-care (01) ==
PROVIDERS: PCP Internal Medicine; Visit Provider Physician Assistant
DX: M54.9 Dorsalgia, unspecified (principal)
CPT/HCPCS: 99213

== ENCOUNTER 2023-12-11 10:49 | Outpatient (REF) | payer MEDICAID, SELFPAY ==
--- NOTE | ~2023-12-11 | XR_ITS ---
EXAMINATION: XR LUMBOSACRAL SPINE WITH OBLIQUES CLINICAL INFORMATION: Back pain. COMPARISON: X-ray pelvis 03/27/2023. Sacrum/coccyx 09/03/2021. Lumbosacral spine 09/29/2019. TECHNIQUE: 4 views of the lumbar spine. FINDINGS: Degenerative changes in the imaged lower thoracic spine. Facet arthritis in the lower spine. Surgical clips and tano in the left upper quadrant. Slight levoscoliosis of the lumbar spine. Redemonstration of fusion hardware overlying the left sacroiliac joint. Degenerative changes in the right sacroiliac joint. Minimal grade 1 anterolisthesis of L4 on L5 with flexion and extension. Wqvg-uy-[id number] multilevel lumbar spondylosis with loss of disc space height at L4-L5, and at L5-S1. XR/XR lumbar spine 4V min IMPRESSION: Minimal grade 1 anterolisthesis of L4 on L5 with flexion and extension. Sxjl-zo-bongodyo multilevel lumbar spondylosis with loss of disc space height at L4-L5, and at L5-S1.
== END 2023-12-11 10:50 | disposition home or self-care (01) ==
LOC: HO.HOSX 10:49
PROVIDERS: PCP Internal Medicine; Visit Provider Physician Assistant
DX: M54.9 Dorsalgia, unspecified (principal)
CPT/HCPCS: 72110; 99212

== ENCOUNTER 2023-12-24 11:30 | Outpatient (REF) | payer MEDICAID, SELFPAY ==
--- NOTE | ~2023-12-24 | XR_ITS ---
EXAMINATION: XR CHEST CLINICAL INFORMATION: Cough for one week COMPARISON: None available. TECHNIQUE: 2 views of the chest were obtained. FINDINGS: Lungs grossly clear. No pleural effusion. Heart size borderline with normal caliber pulmonary vessels. XR/XR chest 2V IMPRESSION: No active disease.
== END 2023-12-24 11:31 | disposition home or self-care (01) ==
LOC: HO.HHCX 11:30
PROVIDERS: Visit Provider Family Medicine
DX: J06.9 Acute upper respiratory infection, unspecified (principal)
CPT/HCPCS: 71046

== ENCOUNTER 2024-01-22 11:36 | Outpatient (AMB) | payer MEDICAID, SELFPAY ==
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
== END 2024-01-22 12:28 | disposition home or self-care (01) ==
PROVIDERS: PCP Internal Medicine; Visit Provider Physician Assistant
DX: M54.16 Radiculopathy, lumbar region (principal)
CPT/HCPCS: 99213

== ENCOUNTER → 2024-01-22 11:36 | Outpatient (BNVA) | payer MEDICAID, SELFPAY | PROVIDERS: PCP Internal Medicine; Visit Provider Physician Assistant | DX: M54.16 Radiculopathy, lumbar region (principal) | CPT/HCPCS: 99212 ==

== ENCOUNTER 2024-02-11 10:27 | Outpatient (AMB) | payer MEDICAID, SELFPAY ==
--- NOTE | 2024-02-11 10:36 | MHC.OFFVIS ---
Intake Visit Reasons: OV - Left knee on 09/04/2023 Intake Note: Kyle is a 48 year old female who presents to the office today for follow up Left knee 09/04/2023. She reports mild intermittent discomfort in her left knee. She continues with her home exercise program. She does not take any medicines for discomfort. She denies any locking or giving way. Allergies amoxicillin Allergy (Severe, Verified 02/11/24 10:38) DIFFICULTY BREATHING clavulanic acid Allergy (Severe, Verified 02/11/24 10:38) DIFFICULTY BREATHNG nabumetone Allergy (Severe, Verified 02/11/24 10:38) Depression Penicillins Allergy (Severe, Verified 02/11/24 10:38) Shortness of Breath, itching sulfamethoxazole Allergy (Severe, Verified 02/11/24 10:38) DIFFICULTY BREATHING, anaphylaxis trimethoprim Allergy (Severe, Verified 02/11/24 10:38) DIFFICULTY BREATHING, anaphylaxis azithromycin Allergy (Intermediate, Verified 02/11/24 10:38) DIFFICULTY BREATHING hydrocodone Allergy (Intermediate, Verified 02/11/24 10:38) DIFFICULTY BREATHING levofloxacin Allergy (Intermediate, Verified 02/11/24 10:38) AGITATION-CAN TAKE IV, BUT NOT PO ondansetron [From Zofran] Allergy (Intermediate, Verified 02/11/24 10:38) r/t prolonged QT rizatriptan [RIZATRIPTAN] Allergy (Intermediate, Verified 02/11/24 10:38) HIVES diphenhydramine [From BENADRYL] Adverse Reaction (Unknown, Verified 02/11/24 10:38) told to avoid From REGLAN Allergy (Severe, Uncoded 02/11/24 10:38) DYSPHORIA Medication List - Last Reconciled 02/11/24 by Sonny Puga MD albuterol sulfate 90 mcg/actuation (ProAir HFA) 2 puffs PO Q4-6H PRN amlodipine 10 mg PO DAILY bisacodyl 10 mg (2 x 5 mg) PO BEDTIME carvedilol 3.125 mg PO BID cetirizine (All Day Allergy (cetirizine)) 10 mg PO DAILY PRN cholecalciferol (vitamin D3) 125 mcg PO DAILY diazepam (Valium) 5 mg PO TID PRN dicyclomine 20 mg PO QID PRN docusate sodium (Colace) 100 mg PO BID PRN fluticasone propionate 50 mcg/actuation 1 - 2 sprays intranasal QAM fluticasone propionate 110 mcg/actuation (Flovent HFA) 2 puffs inhalation hydromorphone (Dilaudid) 1 mg (1/2 x 2 mg) PO Q12H 7 days ibuprofen 600 mg PO TID PRN [iron dextran IV] meloxicam 15 mg PO DAILY methocarbamol 750 mg PO QID omeprazole 20 mg PO DAILY polyethylene glycol 3350 (Miralax) 17 grams PO DAILY PRN semaglutide (Ozempic) 0.25 mg subcut QWEEK tramadol 50 mg PO Q12H PRN vitamin B complex (B Complex-Vitamin B12 tablet) 1 tab PO DAILY PFSH Medical History Hx MRSA infection (~2019) Wears glasses Wears hearing aid in both ears Leukocytosis Ear piercing [place] (obstructive sleep apnea) Personal history of COVID-19 Renal cyst Anemia Prolonged QT interval Murmur, cardiac Thyroid condition Essential hypertension Sacroiliac joint dysfunction of right side Asthma PCOS (polycystic ovarian syndrome) Surgical History Hx of arthroscopy of left knee (09/04/23) S/P fusion of sacroiliac joint (12/23/22) History of S/P left knee arthroscopy Status post arthroscopy of shoulder H/O gastric sleeve History of ankle surgery History of laparoscopic partial gastrectomy Social History Household Members: Spouse, Family and Children Housing: House Are you a primary progressive care unit registered nurse to a significant other at home: Yes (5 year old daughter) Do you presently have visiting nurse or other home services: No Alcohol intake: former Patient Tobacco Use Status: Never used Tobacco e-Cigarette/Vaping Use: Never Used Physical Exam Const Other: Well-nourished well-developed very friendly female awake alert and oriented x3 in no acute distress Extrem Other: Bilateral lower extremity examination shows good capillary refill, no skin lesions noted, normal sensation light touch Left knee examination shows that the surgical incisions are well healed, no erythema, minimal discomfort with range of motion, minimal crepitus with range of motion, no instability Assessment & Plan Assessment & Plan (1) Left knee pain: Code(s): M25.562 - Pain in left knee Category: Medical Plan Ms. Pool continues to do well after undergoing left knee arthroscopic surgery on 09/04/2023. She will continue activities as tolerated. She does have residual discomfort due to degenerative joint disease. At this point the patient's symptoms are tolerable to her. We will hold off on an injection. She will follow up with me on an as-needed basis should her symptoms worsen in any way. Feel free to call me at any time should questions regarding her orthopedic management arise. I spent 21 minutes in reviewing the patient's records and imaging studies, seeing the patient and documenting in the medical record. Coding Level of Care Code Est Pt Level 3 (72313) Diagnoses Left knee pain M25.562
== END 2024-02-11 10:51 | disposition home or self-care (01) ==
PROVIDERS: PCP Internal Medicine; Visit Provider Orthopaedic Surgery
DX: M25.562 Pain in left knee (principal)
CPT/HCPCS: 99213

== ENCOUNTER → 2024-02-11 10:27 | Outpatient (BNVA) | payer MEDICAID, SELFPAY | PROVIDERS: PCP Internal Medicine; Visit Provider Orthopaedic Surgery | DX: M25.562 Pain in left knee (principal) | CPT/HCPCS: 99212 ==

== ENCOUNTER 2024-03-02 11:31 | Outpatient (AMB) | payer MEDICAID, SELFPAY ==
--- NOTE | 2024-03-02 11:34 | HO.SPINEOV ---
Intake Visit Reasons: f/up MRI Intake Note: Ms. Pool is here to F/u on MRI. Guidance Secretary Required: No Allergies amoxicillin Allergy (Severe, Verified 03/02/24 11:37) DIFFICULTY BREATHING clavulanic acid Allergy (Severe, Verified 03/02/24 11:37) DIFFICULTY BREATHNG nabumetone Allergy (Severe, Verified 03/02/24 11:37) Depression Penicillins Allergy (Severe, Verified 03/02/24 11:37) Shortness of Breath, itching sulfamethoxazole Allergy (Severe, Verified 03/02/24 11:37) DIFFICULTY BREATHING, anaphylaxis trimethoprim Allergy (Severe, Verified 03/02/24 11:37) DIFFICULTY BREATHING, anaphylaxis azithromycin Allergy (Intermediate, Verified 03/02/24 11:37) DIFFICULTY BREATHING hydrocodone Allergy (Intermediate, Verified 03/02/24 11:37) DIFFICULTY BREATHING levofloxacin Allergy (Intermediate, Verified 03/02/24 11:37) AGITATION-CAN TAKE IV, BUT NOT PO ondansetron [From Zofran] Allergy (Intermediate, Verified 03/02/24 11:37) r/t prolonged QT rizatriptan [RIZATRIPTAN] Allergy (Intermediate, Verified 03/02/24 11:37) HIVES diphenhydramine [From BENADRYL] Adverse Reaction (Unknown, Verified 03/02/24 11:37) told to avoid From REGLAN Allergy (Severe, Uncoded 02/11/24 10:38) DYSPHORIA Assessment & Plan Assessment & Plan (1) Lumbar radiculopathy: Code(s): M54.16 - Radiculopathy, lumbar region Category: Medical Plan Dear colleague, On 03/02/2024 I saw for follow-up Kyle Hernandez review an MRI of the lumbar spine for right lumbar radiculopathy. The patient states that the symptoms are alternating from left to right and vice versa. The symptoms have not improved. The MRI of the lumbar spine of 02/18/2024 shows no nerve compression and therefore I do not have a surgical therapy to address her ongoing symptoms. Daniel Izaguirre MD, PhD Spine [facility] Trained Neurosurgeon Director, [facility] Coding Level of Care Code Est Pt Level 2 (68558) Diagnoses Lumbar radiculopathy M54.16
== END 2024-03-02 11:59 | disposition home or self-care (01) ==
PROVIDERS: PCP Internal Medicine; Referring Provider Internal Medicine; Visit Provider Neurological Surgery
DX: M54.16 Radiculopathy, lumbar region (principal)
CPT/HCPCS: 99212

== ENCOUNTER → 2024-03-02 11:31 | Outpatient (BNVA) | payer MEDICAID, SELFPAY | PROVIDERS: PCP Internal Medicine; Visit Provider Neurological Surgery | DX: M54.16 Radiculopathy, lumbar region (principal) | CPT/HCPCS: 99212 ==

== ENCOUNTER 2024-03-07 13:35 | Emergency (ER) | payer MEDICAID, SELFPAY ==
--- NOTE | ~2024-03-07 | US_ITS ---
EXAMINATION: US PELVIS CLINICAL INFORMATION: Heavy vaginal bleeding. LMP 02/25/2024. COMPARISON: 02/14/2019 TECHNIQUE: Ultrasound of the pelvis is performed using both transabdominal and transvaginal transducers along with Doppler. Transvaginal imaging is performed due to inadequate visualization transabdominally. FINDINGS: Uterus: The uterus is anteverted. The uterus measures 1.2 x 6.0 x 8.0 cm. Uterine echotexture is heterogeneous. The endometrial stripe measures 1.4 cm in thickness. Cervical nabothian cysts are present. Adnexa: Both ovaries are visualized. The right ovary measures 1.6 x 1.4 x 1.6 cm for a volume of 1.9 mL. The left ovary measures 3.4 x 2.5 x 2.7 cm for a volume of 16.0 cm. Left ovarian cyst measures 1.8 x 2.4 x 1.3 cm. Small free fluid in the left adnexa. US/US pelvic and transvaginal IMPRESSION: Thickened endometrium. Advise correlation with patient's menstrual history. Left ovarian cyst measures 1.8 x 2.4 x 1.3 cm. Findings are overwhelmingly likely to represent a normal ovarian follicle. No follow-up imaging recommended.
[2024-03-07 13:47] VITALS: BP 155/84; PULSE 87; RESP 18; TEMP 36.8; O2SAT 97; BMI 43.1
--- NOTE | 2024-03-07 13:47 | ED_ITS ---
HPI - General Adult General Chief complaint: Vaginal Bleeding Stated complaint: vaginal bleeding Time Seen by Provider: 03/07/24 15:37 Source: patient Mode of arrival: ambulatory Limitations: no limitations History of Present Illness ED Provider: Prema Marquez PA-C HPI narrative: 49 year old female with PMH of PCOS, back pain, asthma, anemia, and H/O gastric sleeve presents today with severe pain in the left lower abdomen/groin with severe menstrual bleeding for over 11 days and was sent here by PCP. Patient states she starrted her menstrual cycle on February 24, and that they usually last for about 6-7 days. States the blood flow was normal for her within these days. About 2-3 days ago, patient was home and doubled or and excruciating pain which was very uncommon for her since she has a high pain tolerance. Patient states menstrual bleeding continued throughout these days, and she goes through about 4-5 pads a day. Menstrual period has been about 11 days stated by patient. Patient had an MRI on 02/21 that showed a 4.5 cm cyst on the left ovary. Patient presents today due to feeling tired, fatigue, pain in the left groin, and has a headache. She is unsure when her mother went through menopause, but is aware that her grandmother went through menopause around the age of 51. States that when she had her eggs checked with the of her daughter about 5 or 6 years ago, they said that she had many years left until menopause. She is worried about her blood levels as she does have anemia and has been bleeding profusely. States she took Tylenol before arrival to ED. She does not complain of shortness of breath, difficulty breathing, chest pain, upper abdominal pain, muscle pain, joint pain, fevers, urinary frequency/urgency, burning when peeing. complaint: abnormal vaginal bleeding Onset (ago): day(s) (10) Location: genitals Radiation: non-radiation Severity: moderate and severe Quality: stabbing and sharp Pain Consistency: constant Relieving factors: none Associated symptoms: headaches Treatments prior to arrival: other (Tylenol) Related Data Home Medications ?Medication ?Instructions ?Recorded ?Confirmed cetirizine 10 mg capsule (All Day 10 mg PO DAILY PRN Allergy Symptoms 11/14/20 02/11/24 Allergy (cetirizine)) cholecalciferol (vitamin D3) 125 125 mcg PO DAILY 11/14/20 02/11/24 mcg (5,000 unit) capsule vitamin B complex (B 1 tab PO DAILY 11/14/20 02/11/24 Complex-Vitamin B12 tablet) albuterol sulfate 90 mcg/actuation 2 puff PO Q4-6H PRN Shortness Of 01/14/22 02/11/24 aerosol inhaler (ProAir HFA) Breath Or Wheezing omeprazole 20 mg capsule,delayed 20 mg PO DAILY 01/14/22 02/11/24 release amlodipine 10 mg tablet 10 mg PO DAILY 12/04/22 02/11/24 carvedilol 3.125 mg tablet 3.125 mg PO BID 12/04/22 02/11/24 fluticasone propionate 110 2 puff inhalation 12/04/22 02/11/24 mcg/actuation HFA aerosol inhaler (Flovent HFA) fluticasone propionate 50 1 - 2 spray intranasal QAM 12/04/22 02/11/24 mcg/actuation nasal spray,suspension polyethylene glycol 3350 17 17 g PO DAILY PRN Constipation 12/04/22 02/11/24 gram/dose oral powder (Miralax) iron dextran IV 12/23/22 02/11/24 diazepam 5 mg tablet (Valium) 5 mg PO TID PRN Anxiety 09/02/23 02/11/24 methocarbamol 750 mg tablet 750 mg PO QID 09/02/23 02/11/24 semaglutide 0.25 mg or 0.5 mg (2 0.25 mg subcut QWEEK 02/11/24 02/11/24 mg/3 mL) subcutaneous pen injector (Ozempic) Previous Rx's ?Medication ?Instructions ?Recorded dicyclomine 20 mg tablet 20 mg PO QID PRN abdominal pain 06/16/20 #20 tabs docusate sodium 100 mg capsule 100 mg PO BID PRN Constipation #14 09/03/21 (Colace) caps ibuprofen 600 mg tablet 600 mg PO TID PRN pain #14 tabs 02/13/22 bisacodyl 5 mg tablet,delayed 10 mg (2 x 5 mg) PO BEDTIME #14 11/17/22 release tabs hydromorphone 2 mg tablet 1 mg (1/2 x 2 mg) PO Q12H 7 days 09/28/23 (Dilaudid) #7 tabs meloxicam 15 mg tablet 15 mg PO DAILY #30 tabs 10/12/23 tramadol 50 mg tablet 50 mg PO Q12H PRN pain #30 tabs 11/05/23 nitrofurantoin 100 mg PO Q12H 7 days #14 caps 03/07/24 monohydrate/macrocrystals 100 mg capsule (Macrobid) Allergies Allergy/AdvReac Type Severity Reaction Status Date / Time amoxicillin Allergy Severe DIFFICULTY Verified 03/07/24 13:52 BREATHING clavulanic acid Allergy Severe DIFFICULTY Verified 03/07/24 13:52 BREATHNG nabumetone Allergy Severe Depression Verified 03/07/24 13:52 Penicillins Allergy Severe Shortness Verified 03/07/24 13:52 of Breath, itching sulfamethoxazole Allergy Severe DIFFICULTY Verified 03/07/24 13:52 BREATHING, anaphylaxis trimethoprim Allergy Severe DIFFICULTY Verified 03/07/24 13:52 BREATHING, anaphylaxis azithromycin Allergy Intermediate DIFFICULTY Verified 03/07/24 13:52 BREATHING hydrocodone Allergy Intermediate DIFFICULTY Verified 03/07/24 13:52 BREATHING levofloxacin Allergy Intermediate AGITATION-CAN Verified 03/07/24 13:52 TAKE IV, BUT NOT PO ondansetron [From Zofran] Allergy Intermediate r/t Verified 03/07/24 13:52 prolonged QT rizatriptan [RIZATRIPTAN] Allergy Intermediate HIVES Verified 03/02/24 11:37 diphenhydramine AdvReac Unknown told to Verified 03/02/24 11:37 [From BENADRYL] avoid From REGLAN Allergy Severe DYSPHORIA Uncoded 02/11/24 10:38 Review of Systems 2 Review of Systems: Yes all other systems are reviewed and are negative [facility] Past Medical History Medical History Hx MRSA infection (~2019) Wears glasses Wears hearing aid in both ears Leukocytosis Ear piercing ALMA DELIA (obstructive sleep apnea) Personal history of COVID-19 Renal cyst Anemia Prolonged QT interval Murmur, cardiac Thyroid condition Essential hypertension Sacroiliac joint dysfunction of right side Asthma PCOS (polycystic ovarian syndrome) Surgical History Hx of arthroscopy of left knee (09/04/23) S/P fusion of sacroiliac joint (12/23/22) History of S/P left knee arthroscopy Status post arthroscopy of shoulder H/O gastric sleeve History of ankle surgery History of laparoscopic partial gastrectomy Social History Social History Household Members: Spouse, Family and Children Housing: House Are you a primary outdoor emergency care technician to a significant other at home: Yes (5 year old daughter) Do you presently have visiting nurse or other home services: No Alcohol intake: former Patient Tobacco Use Status: Never used Tobacco e-Cigarette/Vaping Use: Never Used Advance Directives: Yes Advance Directives Information Provided: No Advance Directives on File: No Do you have a plan to hurt others: No Plan Physical Exam ED Vital Signs: Vital Signs - 24 hr 03/07/24 13:47 03/07/24 17:06 Temperature 98.3 F 97.8 F Pulse Rate 87 88 Respiratory Rate 18 16 Blood Pressure 155/84 H 113/66 Pulse Oximetry 97 99 Oxygen Delivery Method Room Air Room Air BMI result Body Mass Index 43.1 Appearance: Alert. Oriented X3. Mild distress. HEENT: normal inspection CVS: Normal heart rate and rhythm. Pulses normal. Respiratory: No respiratory distress. Skin: Skin warm and dry. Normal skin color. Normal skin turgor. No rashes. Abdomen: Tender to palpation on the left quadrants, exquisitely tender on left lower abdomen/groin. Soft to palpation, bowel sounds active. Pelvic deferred Extremities: No trauma or injuries noted, capillary refill intact. Neuro: Oriented X 3. No motor deficit. No sensory deficit. Course Course Course Narrative: RME performed by Amber De Dios PA-C. Patient is a 49 year old assigned female at presenting to the emergency department with abdominal pain, vaginal bleeding, and fatigue. Patient states she has a history of PCOS and has been on her period since 02/25/2024. Patient states that she had an MRI recently and told that she had a 4.5cm ovarian cyst, had a very sharp pain, and now has been bleeding much more. Detailed physical exam and review of systems are deferred to the upsetter helper. Labs and imaging ordered. Patient placed back in the waiting room pending room availability and results. Medications Administered Discontinued Medications Generic Name Dose Route Start Last Admin Trade Name Freq PRN Reason Stop Dose Admin Nitrofurantoin Macrocrystals 100 mg 03/07/24 16:38 03/07/24 16:50 Nitrofurantoin Monohyd/M-Cryst 100 Mg Capsule PO 03/07/24 16:39 100 mg ONCE ONE Administration Medical Decision Making Medical Decision Making [facility] Narrative: 49 year old female with PMH of PCOS, back pain, asthma, anemia, and H/O gastric sleeve presents today with severe pain in the left lower abdomen/groin with severe menstrual bleeding for over 11 days and was sent here by PCP. Hx recent left sided cyst in her ovary. Exam and clinical presentation are less consistent with ovarian torsion. She is here today with abnormal vaginal bleeding. She feels fatigued. Her lab work shows some mild normocytic anemia which is similar to her prior lab work over the last few years. No indication for blood transfusion today. Ultrasound of her pelvis showing a thickened endometrium, the left-sided cyst is now 2 cm. Her urinalysis is positive for UTI. She has no tachycardia, fevers, vomiting. No evidence of sepsis at this time. She has not seen her OBGYN at [facility] for the last few years. We discussed the results of her ultrasound and need for outpatient follow-up. Will treat UTI and have her follow-up with her OBGYN for further management of dysfunctional uterine bleeding Differential Diagnosis Differential Diagnoses: The differential diagnosis associated with the presentation includes Ovarian cyst, fibroid, Adenomyosis, Endometriosis/Endometritis, Menopause, Hormone imbalance, , uterine cancer, Ruptured cyst, less likely diverticulitis Lab Data [facility] Lab Attestation statement: I reviewed the patient's lab results. Mild normocytic anemia, mild leukocytosis, normal renal function 03/07/24 14:09 03/07/24 14:09 Labs: Lab Results 03/07/24 Range/Units 14:09 WBC 11.3 H (4.8-10.8) X10*3/uL RBC 4.45 (4.20-5.50) X10*6/uL Hgb 11.7 L (12.0-16.0) g/dl Hct 35.9 L (37.0-47.0) % MCV 80.7 (80.0-98.0) fL MCH 26.3 L (27.0-33.0) pg MCHC 32.6 (31.0-35.0) g/dl RDW 13.8 (11.0-16.0) % Plt Count 354 (160-400) X10*3/uL MPV 9.1 L (9.4-12.3) fL Immature Gran % (Auto) 0.3 (0.0-0.4) % Neut % (Auto) 73.0 (45-73) % Lymph % (Auto) 17.4 L (20-40) % [place] % (Auto) 6.5 (2-11) % Eos % (Auto) 2.4 (0-4) % Baso % (Auto) 0.4 (0-2) % Lymph # (Auto) 2.0 (1.2-4.9) X10*3/uL [place] # (Auto) 0.7 (0.1-1.2) X10*3/uL Eos # (Auto) 0.3 (0.0-0.4) X10*3/uL Baso # (Auto) 0.1 (0.0-0.2) X10*3/uL Abs Immat Gran (auto) 0.03 (0.00-0.03) X10*3/uL Absolute Neuts (auto) 8.2 (2.0-8.3) x10*3/uL Absolute Nucleated RBC 0.000 (0.0-0.012) X10*3/uL Nucleated RBC % (auto) 0.0 (0.0-0.2) /100WBC PT 11.1 (11.1-13.3) SEC INR 0.9 (0.9-1.1) APTT 32.7 (26.0-36.8) SEC Sodium 141 (135-145) mmol/L Potassium 3.3 (3.3-5.1) mmol/L Chloride 108 (96-108) mmol/L Carbon Dioxide 24 (22-29) mmol/L Anion Gap 12 (12-20) BUN 14 (9-16) mg/dL Creatinine 0.58 (0.5-1.4) mg/dL Estim Creat Clear Calc 140.0 Estimated GFR > 60 Random Glucose 100 (60-115) mg/dL Calcium 8.9 (8.4-10.2) mg/dL Magnesium 2.2 (1.6-2.6) mg/dL Total Bilirubin 0.1 (0.0-1.0) mg/dL AST 10 (5-31) U/L ALT 15 (0-31) U/L Alkaline Phosphatase 69 (39-117) U/L Total Protein 7.0 (6.5-8.0) g/dL Albumin 3.8 (3.5-5.0) g/dL Beta HCG, Quant < 2 mIU/mL Urine Color DK YELLOW Urine Appearance Cloudy Urine pH 6.5 (5.0-9.0) Ur Specific [place] >= 1.030 H (1.005-1.025) Urine Protein 100 (2+) H (Neg-Trace) mg/dL Urine Glucose (UA) Negative (Negative) mg/dL Urine Ketones Trace (Negative) mg/dL Urine Blood Large (3+) H (Negative) Urine Nitrite Positive H (Negative) Ur Leukocyte Esterase Moderate (2+) H (Negative) Urine RBC >20 H (0-2) /HPF Urine WBC 21-50 H (0-5) /HPF Ur Squamous Epith Cells 3-5 (0-2) /HPF Urine Bacteria 1+ (None Seen) Hyaline Casts 0-2 (0-2) /LPF Independent Interpretation I performed an independent interpretation of an: Ultrasound Interpretation: Normal ovarian flow, agree with radiology read Radiology Impression Discussion of test interpretation with radiology: I have reviewed the radiologist's reading. Radiologist Impression: EXAMINATION: US PELVIS CLINICAL INFORMATION: Heavy vaginal bleeding. LMP 02/25/2024. COMPARISON: 02/14/2019 TECHNIQUE: Ultrasound of the pelvis is performed using both transabdominal and transvaginal transducers along with Doppler. Transvaginal imaging is performed due to inadequate visualization transabdominally. FINDINGS: Uterus: The uterus is anteverted. The uterus measures 1.2 x 6.0 x 8.0 cm. Uterine echotexture is heterogeneous. The endometrial stripe measures 1.4 cm in thickness. Cervical nabothian cysts are present. Adnexa: Both ovaries are visualized. The right ovary measures 1.6 x 1.4 x 1.6 cm for a volume of 1.9 mL. The left ovary measures 3.4 x 2.5 x 2.7 cm for a volume of 16.0 cm. Left ovarian cyst measures 1.8 x 2.4 x 1.3 cm. Small free fluid in the left adnexa. US/US pelvic and transvaginal IMPRESSION: Thickened endometrium. Advise correlation with patient's menstrual history. Left ovarian cyst measures 1.8 x 2.4 x 1.3 cm. Findings are overwhelmingly likely to represent a normal ovarian follicle. No follow-up imaging recommended. External Record Review External record reviewed: Outpatient record, Prior outpatient labs and Prior outpatient radiology Tests considered The following testing was considered but not selected: CT scan of the abdomen and pelvis was considered however pelvic ultrasound likely the most appropriate modality for her complaints today Prescription Management I considered prescription management with: Pain Medication and Antibiotic Chronic Conditions Patient?s care impacted by: Other (PCOS) Critical Care Time Critical Care Time Critical Care Time: No Discharge Plan Discharge Clinical Impression: DUB (dysfunctional uterine bleeding) UTI (urinary tract infection) Qualifiers: Urinary tract infection type: acute cystitis Hematuria presence: with hematuria Qualified Code(s): N30.01 - Acute cystitis with hematuria Patient Disposition: Home, Self-Care Instructions: Dysfunctional Uterine Bleeding (ED) Additional Instructions: Your lab workup today showed a very mild anemia which is similar to your previous blood counts in the last several years. You need to follow up with your tin flipper. Your urine test showed infection. Take the prescribed antibiotics as directed, complete the entire course and do not miss any doses EXAMINATION: US PELVIS CLINICAL INFORMATION: Heavy vaginal bleeding. LMP 02/25/2024. COMPARISON: 02/14/2019 TECHNIQUE: Ultrasound of the pelvis is performed using both transabdominal and transvaginal transducers along with Doppler. Transvaginal imaging is performed due to inadequate visualization transabdominally. FINDINGS: Uterus: The uterus is anteverted. The uterus measures 1.2 x 6.0 x 8.0 cm. Uterine echotexture is heterogeneous. The endometrial stripe measures 1.4 cm in thickness. Cervical nabothian cysts are present. Adnexa: Both ovaries are visualized. The right ovary measures 1.6 x 1.4 x 1.6 cm for a volume of 1.9 mL. The left ovary measures 3.4 x 2.5 x 2.7 cm for a volume of 16.0 cm. Left ovarian cyst measures 1.8 x 2.4 x 1.3 cm. Small free fluid in the left adnexa. US/US pelvic and transvaginal IMPRESSION: Thickened endometrium. Advise correlation with patient's menstrual history. Left ovarian cyst measures 1.8 x 2.4 x 1.3 cm. Findings are overwhelmingly likely to represent a normal ovarian follicle. No follow-up imaging recommended. Prescriptions: New nitrofurantoin monohyd/m-cryst [Macrobid] 100 mg capsule 100 mg PO Q12H 7 Days Qty: 14 0RF Rx Instructions: must administer with a meal/food No Action bisacodyl 5 mg tablet,delayed release (DR/EC) 10 mg PO BEDTIME Qty: 14 0RF hydromorphone [Dilaudid] 2 mg tablet 1 mg PO Q12H 7 Days Qty: 7 0RF Rx Instructions: Partial Fill upon patient request. meloxicam 15 mg tablet 15 mg PO DAILY Qty: 30 0RF tramadol 50 mg tablet 50 mg PO Q12H PRN (Reason: pain) Qty: 30 0RF dicyclomine 20 mg tablet 20 mg PO QID PRN (Reason: abdominal pain) Qty: 20 0RF docusate sodium [Colace] 100 mg capsule 100 mg PO BID PRN (Reason: Constipation) Qty: 14 0RF ibuprofen 600 mg tablet 600 mg PO TID PRN (Reason: pain) Qty: 14 0RF diazepam [Valium] 5 mg tablet 5 mg PO TID PRN (Reason: Anxiety) Rx Instructions: partial fill is okay methocarbamol 750 mg tablet 750 mg PO QID polyethylene glycol 3350 [Miralax] 17 gram/dose powder 17 g PO DAILY PRN (Reason: Constipation) carvedilol 3.125 mg tablet 3.125 mg PO BID amlodipine 10 mg tablet 10 mg PO DAILY fluticasone propionate 50 mcg/actuation spray,suspension 1 - 2 spray intranasal QAM fluticasone propionate [Flovent HFA] 110 mcg/actuation HFA aerosol inhaler 2 puff INHALATION iron dextran IV Patient Comments: last dose- last year vitamin B complex [B Complex-Vitamin B12] Tablet 1 tab PO DAILY cholecalciferol (vitamin D3) 125 mcg (5,000 unit) capsule 125 mcg PO DAILY All Day Allergy (cetirizine) 10 mg capsule 10 mg PO DAILY PRN (Reason: Allergy Symptoms) albuterol sulfate [ProAir HFA] 90 mcg/actuation HFA aerosol inhaler 2 puff PO Q4-6H PRN (Reason: Shortness Of Breath Or Wheezing) omeprazole 20 mg capsule,delayed release(DR/EC) 20 mg PO DAILY Ozempic 0.25 mg or 0.5 mg (2 mg/3 mL) pen injector 0.25 mg subcut QWEEK Rx Instructions: for 4 weeks Referrals: Porfirio Goodman MD [Primary Care Provider] - Print Language: Kinyarwanda
[2024-03-07 14:16] LABS: MANUAL DIFF FLAG NO
[2024-03-07 14:18] LABS: Basophils Absolute Auto 0.1 X10*3/uL (0.0-0.2); Basophils Percent Auto 0.4 % (0-2); Eosinophils Absolute Auto 0.3 X10*3/uL (0.0-0.4); Eosinophils Percent Auto 2.4 % (0-4); Hematocrit 35.9 % (37.0-47.0); Hemoglobin 11.7 g/dl (12.0-16.0); Imm Gran Abs Auto 0.03 X10*3/uL (0.00-0.03); Imm Gran Pct Auto 0.3 % (0.0-0.4); Lymphocytes Percent Auto 17.4 % (20-40); Mean Corpuscular HGB Conc 32.6 g/dl (31.0-35.0); Mean Corpuscular Hemoglobin 26.3 pg (27.0-33.0); Mean Corpuscular Volume 80.7 fL (80.0-98.0); Mean Platelet Volume 9.1 fL (9.4-12.3); Monocytes Absolute Auto 0.7 X10*3/uL (0.1-1.2); Monocytes Percent Auto 6.5 % (2-11); Neutrophils Absolute Auto 8.2 x10*3/uL (2.0-8.3); Platelet Count 354 X10*3/uL (160-400); Red Blood Count 4.45 X10*6/uL (4.20-5.50); Red Cell Distribution Width 13.8 % (11.0-16.0); White Blood Count 11.3 X10*3/uL (4.8-10.8)
[2024-03-07 14:24] LABS: Appearance Urine Cloudy; Color Urine DK YELLOW; Glucose Urine UA Negative (Negative); Nitrite Urine Positive (Negative); PH 6.5 (5.0-9.0); Specific Gravity - Urine >= 1.030 (1.005-1.025); UMIC TRIGGER UACC YES; Urine Blood Large (3+) (Negative); Urine Ketones Trace mg/dL (Negative); Urine Protein 100 (2+) mg/dL (Neg-Trace)
[2024-03-07 14:26] LABS: Leukocyte Esterase Urine Moderate (2+) (Negative)
[2024-03-07 14:28] LABS: INTERNATIONAL NORM RATIO 0.9 (0.9-1.1); Prothrombin Time 11.1 SEC (11.1-13.3)
[2024-03-07 14:30] LABS: Partial Thromboplastin Time 32.7 SEC (26.0-36.8)
[2024-03-07 14:43] LABS: Alanine Aminotransferase 15 U/L (0-31); Albumin Level 3.8 g/dL (3.5-5.0); Alkaline Phosphatase 69 U/L (39-117); Anion Gap 12 (12-20); Aspartate Amino Transferase 10 U/L (5-31); Bilirubin Total 0.1 mg/dL (0.0-1.0); Blood Urea Nitrogen 14 mg/dL (9-16); Calcium 8.9 mg/dL (8.4-10.2); Carbon Dioxide 24 mmol/L (22-29); Chloride 108 mmol/L (96-108); Estimated Glomerular Filt Rate > 60; Glucose Random 100 mg/dL (60-115); Magnesium 2.2 mg/dL (1.6-2.6); Potassium 3.3 mmol/L (3.3-5.1); Sodium 141 mmol/L (135-145)
[2024-03-07 14:48] LABS: HCG Quantitative < 2 mIU/mL
[2024-03-07 14:54] LABS: Bacteria Urine 1+ (None Seen); Hyaline Casts Urine 0-2 /LPF (0-2); RBC Urine >20 /HPF (0-2); UACC Culture Trigger YES; WBC Urine 21-50 /HPF (0-5)
[2024-03-07] MEDS: Nitrofurantoin Monohyd/M-Cryst 100 MG CAPSULE PO (16:50)
[2024-03-07 17:06] VITALS: BP 113/66; PULSE 88; RESP 16; TEMP 36.6; O2SAT 99
[2024-03-07 18:06] VITALS: BP 113/66; PULSE 88; RESP 16; TEMP 36.6; O2SAT 99
== END 2024-03-07 18:06 | disposition home or self-care (01) ==
PROVIDERS: Physician Assistant Medical; Emergency Provider Emergency Medicine; PCP Internal Medicine
DX: N30.01 Acute cystitis with hematuria (principal); N93.8 Other specified abnormal uterine and vaginal bleeding; R10.32 Left lower quadrant pain; N92.0 Excessive and frequent menstruation with regular cycle; R51.9 Headache, unspecified; Z98.84 Bariatric surgery status; Z79.899 Other long term (current) drug therapy
CPT/HCPCS: 36415; 76830; 76856; 80053; 81001; 83735; 84702; 85025; 85610; 85730; 87086; 87147; 99283; 99284

== ENCOUNTER 2024-03-23 09:32 | Outpatient (AMB) | payer MEDICAID, SELFPAY ==
--- NOTE | 2024-03-23 09:35 | MHC.OFFVISWM ---
VS Expanded 03/23/24 09:44 BP 138/87 Blood Pressure Location Rt brachial Blood Pressure Position Sitting Pulse 83 Pulse Source Pulse Oximeter Temp 96.5 F L Temperature Source Temporal Artery Scan Pulse Oximetry 97 Oxygen Delivery Method Room Air Height 5 ft 2 in Weight 240 lb 12.8 oz BMI 44.0 Body Fat % 42.0 Body Fat Mass 101.2 Fat Free Mass 139.6 Visceral Fat Rating 13.0 Body Water % 41.3 Body Water Mass 99.4 Muscle Mass/Score 132.4 Basal Metabolic Rate/Score 1,937 Intake Visit Reasons: PO LSG 12/14/14 Allergies amoxicillin Allergy (Severe, Verified 03/23/24 09:41) DIFFICULTY BREATHING clavulanic acid Allergy (Severe, Verified 03/23/24 09:41) DIFFICULTY BREATHNG nabumetone Allergy (Severe, Verified 03/23/24 09:41) Depression Penicillins Allergy (Severe, Verified 03/23/24 09:41) Shortness of Breath, itching sulfamethoxazole Allergy (Severe, Verified 03/23/24 09:41) DIFFICULTY BREATHING, anaphylaxis trimethoprim Allergy (Severe, Verified 03/23/24 09:41) DIFFICULTY BREATHING, anaphylaxis azithromycin Allergy (Intermediate, Verified 03/23/24 09:41) DIFFICULTY BREATHING hydrocodone Allergy (Intermediate, Verified 03/23/24 09:41) DIFFICULTY BREATHING levofloxacin Allergy (Intermediate, Verified 03/23/24 09:41) AGITATION-CAN TAKE IV, BUT NOT PO ondansetron [From Zofran] Allergy (Intermediate, Verified 03/23/24 09:41) r/t prolonged QT rizatriptan [RIZATRIPTAN] Allergy (Intermediate, Verified 03/23/24 09:41) HIVES diphenhydramine [From BENADRYL] Adverse Reaction (Unknown, Verified 03/23/24 09:41) told to avoid From REGLAN Allergy (Severe, Uncoded 02/11/24 10:38) DYSPHORIA Medication List - Last Reconciled 03/23/24 by JESSICA Mtz albuterol sulfate 90 mcg/actuation (ProAir HFA) 2 puffs PO Q4-6H PRN amlodipine 10 mg PO DAILY bisacodyl 10 mg (2 x 5 mg) PO BEDTIME carvedilol 3.125 mg PO BID cetirizine (All Day Allergy (cetirizine)) 10 mg PO DAILY PRN cholecalciferol (vitamin D3) 125 mcg PO DAILY diazepam (Valium) 5 mg PO TID PRN dicyclomine 20 mg PO QID PRN docusate sodium (Colace) 100 mg PO BID PRN fluticasone propionate 50 mcg/actuation 1 - 2 sprays intranasal QAM fluticasone propionate 110 mcg/actuation (Flovent HFA) 2 puffs inhalation hydromorphone (Dilaudid) 1 mg (1/2 x 2 mg) PO Q12H 7 days ibuprofen 600 mg PO TID PRN [iron dextran IV] meloxicam 15 mg PO DAILY methocarbamol 750 mg PO QID nitrofurantoin monohyd/m-cryst 100 mg (Macrobid) 100 mg PO Q12H 7 days omeprazole 20 mg PO DAILY polyethylene glycol 3350 (Miralax) 17 grams PO DAILY PRN semaglutide (Ozempic) 0.25 mg subcut QWEEK tramadol 50 mg PO Q12H PRN vitamin B complex (B Complex-Vitamin B12 tablet) 1 tab PO DAILY HPI Comments Details: This?is a?48?yo female who is s/p LSG 12/14/[address] Dan. Weight at last visit in October 2023 was 265.8 pounds with a BMI of 48.6, weight loss today of 24lbs since last OV.? No complaints of nausea, emesis, abdominal pain or reflux, or constipation. Was started on Adderall for ADHD and Wegovy injections 6 weeks ago. However, started with weight loss before started with Wegovy. Her daughter recently broke her arm which has created stress. Knee pain better overall. Present meal plan includes: 2 Slimfast shakes (20g), one Quest bar or chips (20g), and two meals each with 6 forkfuls protein, plus 6ff salad/veg Exercise routine includes: [employer] sanchez - better at being consistent, doing every night with her daughter [facility] Medical History Hx MRSA infection (~2019) Wears glasses Wears hearing aid in both ears Leukocytosis Ear piercing [place] DELIA (obstructive sleep apnea) Personal history of COVID-19 Renal cyst Anemia Prolonged QT interval Murmur, cardiac Thyroid condition Essential hypertension Sacroiliac joint dysfunction of right side Asthma PCOS (polycystic ovarian syndrome) Surgical History Hx of arthroscopy of left knee (09/04/23) S/P fusion of sacroiliac joint (12/23/22) History of S/P left knee arthroscopy Status post arthroscopy of shoulder H/O gastric sleeve History of ankle surgery History of laparoscopic partial gastrectomy Social History Household Members: Spouse, Family and Children Housing: House Are you a primary career center advisor to a significant other at home: Yes (5 year old daughter) Do you presently have visiting nurse or other home services: No Alcohol intake: former Patient Tobacco Use Status: Never used Tobacco e-Cigarette/Vaping Use: Never Used Assessment & Plan Assessment & Plan (1) H/O gastric sleeve: Comment: 2012 Code(s): Z90.3 - Acquired absence of stomach [part of] Category: Surgical (2) Morbid obesity: Code(s): E66.01 - Morbid (severe) obesity due to excess calories Category: Medical Plan Pt to continue current meal plan, increased exercise. Doing well on GLP1 agonist. Due for labs, will have done. RTC 6 months, pt encouraged to text me with any concerns. I spent a total of 30 minutes reviewing/updating records, examining the patient and counseling the patient on weight management as detailed above.
[2024-03-23 09:44] VITALS: BP 138/87; PULSE 83; TEMP 35.8; O2SAT 97; BMI 44.0
== END 2024-03-23 09:58 | disposition home or self-care (01) ==
PROVIDERS: PCP Internal Medicine; Visit Provider Physician Assistant Surgical
DX: E66.01 Morbid (severe) obesity due to excess calories (principal); Z68.41 Body mass index [BMI] 40.0-44.9, adult; Z90.3 Acquired absence of stomach [part of]; Z98.84 Bariatric surgery status
CPT/HCPCS: 99214

== ENCOUNTER → 2024-03-23 09:32 | Outpatient (BNVA) | payer MEDICAID, SELFPAY | PROVIDERS: PCP Internal Medicine; Visit Provider Physician Assistant Surgical | DX: E66.01 Morbid (severe) obesity due to excess calories (principal); Z68.42 Body mass index [BMI] 45.0-49.9, adult; Z98.84 Bariatric surgery status | CPT/HCPCS: 99212 ==

== ENCOUNTER 2024-06-03 12:12 | Outpatient (REF) | payer MEDICAID, SELFPAY ==
--- NOTE | ~2024-06-03 | XR_ITS ---
EXAMINATION: XR FINGER, RIGHT CLINICAL INFORMATION: Pain COMPARISON: None available. TECHNIQUE: Three views of the right thumb. FINDINGS: No acute visible fracture or dislocation. Linear periarticular osteophyte along the ulnar margin of the first interphalangeal joint may reflect changes versus sequela of trauma. Correlation with physical exam. Joint space and alignment otherwise maintained. Soft tissues are unremarkable. XR/XR finger RT min 2V IMPRESSION: 1. No acute visible fracture or dislocation. 2. Linear periarticular osteophyte along the ulnar margin of the first interphalangeal joint may reflect arthritic changes versus sequela of trauma. Correlation with physical exam. Electronically signed by: Na Tucker MD 06/03/2024 01:43 PM [facility]
== END 2024-06-03 12:13 | disposition home or self-care (01) ==
LOC: HO.XRAY 12:12
PROVIDERS: PCP Internal Medicine; Visit Provider Internal Medicine
DX: M79.644 Pain in right finger(s) (principal); G89.29 Other chronic pain
CPT/HCPCS: 73140

== ENCOUNTER 2024-06-10 11:04 | Outpatient (REF) | payer MEDICAID, SELFPAY | END 2024-06-10 11:05 | disposition home or self-care (01) | LOC: HO.HOSX 11:04 | PROVIDERS: PCP Internal Medicine; Visit Provider Physician Assistant | DX: M54.9 Dorsalgia, unspecified (principal); M54.16 Radiculopathy, lumbar region | CPT/HCPCS: 72110; 72190; 99212 ==

== ENCOUNTER 2024-06-10 11:04 | Outpatient (AMB) | payer MEDICAID, SELFPAY ==
--- NOTE | 2024-06-10 11:26 | HO.SPINEOV ---
Intake Visit Reasons: severe back pain/left leg weakness Intake Note: Ms. Pool is here today c/o severe back pain and leg weakness. [employer] Specialist Required: No Allergies amoxicillin Allergy (Severe, Verified 06/10/24 11:27) DIFFICULTY BREATHING clavulanic acid Allergy (Severe, Verified 06/10/24 11:27) DIFFICULTY BREATHNG nabumetone Allergy (Severe, Verified 06/10/24 11:27) Depression Penicillins Allergy (Severe, Verified 06/10/24 11:27) Shortness of Breath, itching sulfamethoxazole Allergy (Severe, Verified 06/10/24 11:27) DIFFICULTY BREATHING, anaphylaxis trimethoprim Allergy (Severe, Verified 06/10/24 11:27) DIFFICULTY BREATHING, anaphylaxis azithromycin Allergy (Intermediate, Verified 06/10/24 11:) DIFFICULTY BREATHING hydrocodone Allergy (Intermediate, Verified 06/10/24 11:) DIFFICULTY BREATHING levofloxacin Allergy (Intermediate, Verified 06/10/24 11:) AGITATION-CAN TAKE IV, BUT NOT PO ondansetron [From Zofran] Allergy (Intermediate, Verified 06/10/24 11:) r/t prolonged QT rizatriptan [RIZATRIPTAN] Allergy (Intermediate, Verified 06/10/24 11:27) HIVES diphenhydramine [From BENADRYL] Adverse Reaction (Unknown, Verified 06/10/24 11:) told to avoid From REGLAN Allergy (Severe, Uncoded 02/11/24 10:38) DYSPHORIA Assessment & Plan Assessment & Plan (1) Lumbar radiculopathy: Code(s): M54.16 - Radiculopathy, lumbar region Category: Medical (2) Back pain: Code(s): M54.9 - Dorsalgia, unspecified Category: Medical Plan Mrs Pool came back to the office today because a few weeks ago she was turning over in bed and felt a pop. She was worried because it was on the left side of her low back going into her left buttock. Nothing shooting down the leg. She has been trying some basic home remedies and [id number] medications etc. to try to feel better but nothing seems to be improving it. She came in today for follow-up just to check on the hardware on the left side of the SI joint and to be evaluated. Strength and gait appear to be normal. I obtained x-rays of her low back and her pelvis to look at the SI joint instrumentation and it looks okay. I do not see any signs of loosening of the hardware. Her standing flexion-extension x-rays do not show any evidence of instability. I think what happened is she strained her back or her gluteal muscle when she was rolling over and need some therapy and some tincture of time. I gave her referral a PT and will see her back down the road if nothing changes. Total amount of time spent in this visit was 20 minutes in discussion of symptoms, lumbar x-ray and pelvic x-ray imaging results and subsequent plan of care Corey Izaguirre MD,PhD [facility] Orders: Orders XR pelvis min 3V Today M54.9 - Dorsalgia, unspecified PT Evaluation and Treatment Today M54.9 - Dorsalgia, unspecified XR lumbar spine 4V min Today M54.16 - Radiculopathy, lumbar region Coding Level of Care Code Est Pt Level 3 (85174) Diagnoses Lumbar radiculopathy M54.16 Back pain M54.9
== END 2024-06-10 12:44 | disposition home or self-care (01) ==
PROVIDERS: PCP Internal Medicine; Visit Provider Physician Assistant
DX: M54.16 Radiculopathy, lumbar region (principal); M54.9 Dorsalgia, unspecified
CPT/HCPCS: 99213

== ENCOUNTER 2024-06-22 09:33 | Outpatient (REF) | payer MEDICAID, SELFPAY ==
[2024-06-22 14:23] LABS: MANUAL DIFF FLAG NO
[2024-06-22 14:24] LABS: Basophils Absolute Auto 0.1 X10*3/uL (0.0-0.2); Basophils Percent Auto 0.6 % (0-2); Eosinophils Absolute Auto 0.2 X10*3/uL (0.0-0.4); Eosinophils Percent Auto 1.7 % (0-4); Hematocrit 38.4 % (37.0-47.0); Hemoglobin 12.2 g/dl (12.0-16.0); Imm Gran Abs Auto 0.03 X10*3/uL (0.00-0.03); Imm Gran Pct Auto 0.3 % (0.0-0.4); Lymphocytes Absolute Auto 1.8 X10*3/uL (1.2-4.9); Lymphocytes Percent Auto 18.7 % (20-40); Mean Corpuscular HGB Conc 31.8 g/dl (31.0-35.0); Mean Corpuscular Hemoglobin 25.4 pg (27.0-33.0); Mean Platelet Volume 9.4 fL (9.4-12.3); Monocytes Absolute Auto 0.5 X10*3/uL (0.1-1.2); Monocytes Percent Auto 5.1 % (2-11); Neutrophils Absolute Auto 7.1 x10*3/uL (2.0-8.3); Neutrophils Percent Auto 73.6 % (45-73); Platelet Count 405 X10*3/uL (160-400); Red Cell Distribution Width 14.1 % (11.0-16.0); White Blood Count 9.6 X10*3/uL (4.8-10.8)
[2024-06-22 14:42] LABS: Iron 52 mcg/dL (30-160); Percent Iron Saturation 22 % (15-50); Total Iron Binding Capacity 240 mcg/dL (228-428); Unsaturated Iron Binding 188 ug/dL
[2024-06-22 14:57] LABS: TSH reflex Free T4 0.21 uIU/mL (0.32-4.0)
[2024-06-22 15:09] LABS: Folate 8.3 ng/mL (> or = 4.0); Vitamin B12 340 pg/mL (200-900)
[2024-06-22 16:26] LABS: Free T4 (Free Thyroxine) 1.02 ng/dL (0.71-1.85)
== END 2024-06-22 09:34 | disposition home or self-care (01) ==
LOC: HO.CHCLDS 09:33
PROVIDERS: Visit Provider Internal Medicine
DX: D50.8 Other iron deficiency anemias (principal)
CPT/HCPCS: 36415; 82607; 82746; 83540; 84439; 84443; 85025

== ENCOUNTER 2024-06-29 08:57 | Emergency (ER) | payer MEDICAID, SELFPAY ==
--- NOTE | ~2024-06-29 | XR_ITS ---
EXAMINATION: XR KNEE, LEFT CLINICAL INFORMATION: pain COMPARISON: 04/16/2023 TECHNIQUE: Four views of the left knee. FINDINGS: Mild osteopenia but no joint effusion, fracture, dislocation or destructive process. Mild patellofemoral degenerative change is noted and is stable. XR/XR knee LT 4V IMPRESSION: No acute findings. Electronically signed by: Lawrence Pablo MD 06/29/2024 12:49 PM [facility]
[2024-06-29 09:06] VITALS: BP 138/85; PULSE 85; RESP 20; TEMP 36.2; O2SAT 98; BMI 39.9
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
--- NOTE | 2024-06-29 11:46 | ECG_ITS ---
Test Reason : PROLONGED QT CHECK Blood Pressure : / mmHG Vent. Rate : 081 BPM Atrial Rate : 081 BPM P-R Int : 138 ms QRS Dur : 096 ms QT Int : 440 ms P-R-T Axes : 030 -20 035 degrees QTc Int : 511 ms Normal sinus rhythm Nonspecific T wave abnormality Abnormal ECG When compared with ECG of 27-NOV-2017 17:25, Nonspecific T wave abnormality now evident in Anterior leads Referred By: Amber Monroe Electronically Signed By:Yony Parra
[2024-06-29 11:49] VITALS: BP 108/65; PULSE 86; RESP 16; O2SAT 98
[2024-06-29] MEDS: oxyCODONE HCl Immed Release 5 MG TABLET PO (12:26)
[2024-06-29] MEDS: Acetaminophen 325 MG TABLET 975 MG PO (12:27)
[2024-06-29 13:20] VITALS: BP 108/65; PULSE 86; RESP 16; TEMP -17.7; TEMP 0; O2SAT 98
--- OUTSIDE RECORDS SUMMARY | 2024-07-05 16:39 | XMS_ITS | Data Portability ---
Author Organization [place] - [facility], Allergy Address [address] [address] Assessment Encounter Date Assessment Date Assessment LastModified by Organization Details LastModified Time 12/28/2023 12/28/2023 Patient's audiogram shows bilateral moderate sensorineural hearing loss with well maintained speech discrimination. There is enough hearing loss to affect day-to-day hearing performance. We discussed in detail the pros and cons of amplification (hearing aids). Patient would like to learn more about this option so I have provided a copy of the audiogram, a list of [facility] hearing aid providers, and medical clearance for amplification so the patient can pursue this at their convenience. Patient is medically cleared for amplification bilaterally She will also undergo retrocochlear evaluation for her hearing She has also requested refill of meclizine dplosky Not available 12/28/2023 12:15:59 Plan of Treatment Reminders Order Date Submit Date Provider Last Modified By Organization Details Last Modified Time Details Appointments None recorded. Lab None recorded. Referral None recorded. Procedures None recorded. Surgeries None recorded. Imaging MRI, brain + internal auditory canal, w/wo contrast - MRI, BRAIN + INTERNAL AUDITORY CANAL, W/WO CONTRAST. hx of menieres 2023 024 [facility] ([facility]), [address] [place], [address], 09:47:00 Medication Orders meclizine 25 mg tablet 2023 024 [id number], [address], [place], [phone], 4 12:17:08 Patient TargetsNo targets recorded. Patient InstructionsNo instructions recorded. Reason for Referral None Reported. Results Created Date Observation Date Name Description Value Unit Range Abnormal Flag Note LastModifiedBy Organization Detail LastModifiedTime 01/01/20 24 12/31/2023 MRI, brain + brain stem, w/wo contr ast [facility] Access ion Number : [id number] Patien t Name: Anton ndiaye, [facility] Duanea l Record Number : [id number] Date of : 1974 Date of Exam: 2023 Referr ing Physic brittani: Tu Garcia [facility] [address] [facility] [place] [address] Exam: MR Brain (C-/C+ ) CPT 52915 Room Descri ption: [facility] Verio 3.0T MR Brain (C-/C+ ) CPT 02998 INDICA TION / CLINIC AL QUESTI ON: Sensor ineura l hearin g loss, bilate ral, , MRI, BRAIN + SAFETY EQUIPMENT TESTER AL AUDITO RY CANAL, W/WO CONTRA ST. hx of menier es\E E\ Clinic al Indica tion: Asymme tric sensor ineura l hearin g loss TECHNI QUE: Multip lanar, multis equenc e MRI of the brain was perfor med with and withou t intrav enous contra st. 20 mL Dotare m intrav enous contra st was admini stered . COMPAR ROBERTA: None. FINDIN GS: IAC: There is no mass or abnorm al enhanc ement in the agronomy internship al audito ry canals or cerebe llopon mono angles . Course and calibe r of the 7th and 8th crania l nerves is normal bilate rally. Fluid signal is preser jesus in the inner ear struct ures bilate rally. Brains tem demons trates normal signal . BRAIN and EXTRA- AXIAL SPACES : No signif icant abnorm ality of the visual ized portio ns of the brain and extra- axial spaces . EXTRAC RANIAL SOFT TISSUE S: There is minima l scatte red mucosa l thicke yancy in the parana cherry sinuse s withou t fluid levels . Small mucous retent ion cyst is seen in the left spheno id sinus. Trace left mastoi d effusi on is seen. Nasoph arynge al contou r is symmet irina. Visual ized portio ns of the extrac ranial soft tissue s are otherw ise unrema rkable . BONES: Visual ized marrow signal is preser jesus. IMPRES NAMAN: No retroc ochlea r abnorm ality to explai n the patien t?s sympto ms. Electr onical ly Signed By: Augusta Franks MD [facility] ([facility]) [address], [place], [address], 01/04/2024 15:27:15 01/06/20 24 audio gram No observ ation record ed. BARCODE Not Available 2023 11:43:06 Result Notes None recorded. Problems Name Problem SNOMED Code Status Onset Date Resolution Date Notes Provider Name and Address Organization Details Recorded Time Sensorine ural hearing loss of bilateral ears 908821512 Active 2014 Sensorineu ral HL, bilateral; Note: Date Diagnosed: 03/21/2015 4:37 PM (389.18) Sensorin eural hearing loss, bilateral; Note: Date Diagnosed: 03/21/2015 4:37 PM (H90.3) Not Available [facility] 4 03:09:32 Hypertrop hy of tonsils 55597054 Active 2017 Hypertroph y of tonsils; Note: Date Diagnosed: 11/12/2017 12:00 PM (J35.1) Not Available [facility] 4 03:09:30 Leukocyto sis 430530402 Active 2017 Leukocytos is, unspecifie d; Note: Date Diagnosed: 11/12/2017 12:01 PM (D72.829) Not Available [facility] 4 03:09:32 Gastroeso phageal reflux disease without esophagit is 741031259 Active 2017 Gastro-eso phageal reflux disease without esophagiti s; Note: Date Diagnosed: 11/12/2017 12:00 PM (K21.9) Not Available [facility] 4 03:09:31 M??ni??re 's disease 16899645 Active 2023 TU GARCIA MD [address] [facility],[place] [address], [facility] [place], [address] , [facility] - [facility] 4 12:16:19 M??ni??re 's disease 71060501 Active 2023 TU GARCIA MD [address] [facility],[place] [address], [facility] [place], [address] , [facility] - [facility] 4 12:16:21 Problem Notes None recorded. Procedures Surgical History Date Name Laterality Status Provider Name and Address Organization Details Recorded Time 12/28/2023 Comp Audio with Tymps (30009 & 46914) completed ALFONSO MILLS [address] [facility],[place] [address], [place], [address], [facility] 12/28/2023 11:47:19 Imaging Results Imaging Date Name Status LastModified by Organiz ation Details LastModified Time 12/31/2023 MRI, brain + brain stem, w/wo contrast completed [facility] ([facility]) [address] [facility], [place], [address], 01/04/2024 15:27:15 01/06/2024 audiogram completed BARCODE Information no t available 01/06/2024 11:43:06 Procedure Notes None recorded. Medical Equipment None Reported. Allergies Allergen ID Allergen Name Allergen Category Reaction Reaction Severity Criticality Documentation Date Start Date Code Code System Note Provider Name and Address Organization Details Recorded Time 053073 Bactrim medicatio n other Not available Not available 12/08/2023 20119 9 RxNorm React ion: unkno wn, unspe cifie d;; Not Available [facility] 4 01:14:34 205846 hydromorp katrin medicatio n other Not available Not available 12/08/2023 3423 RxNorm React ion: unkno wn, unspe cifie d;; Not Available [facility] 4 01:14:35 508459 penicilli n V potassium medicatio n other Not available Not available 12/08/2023 52492 5 RxNorm React ion: unkno wn, unspe cifie d;; Not Available [facility] 4 01:14:36 803065 azithromy farhan medicatio n other Not available Not available 12/08/2023 04171 RxNorm React ion: unkno wn, unspe cifie d;; Not Available [facility] 4 01:14:37 Medications Name Sig Start Date Stop Date Status Note LastModified by Organization Details LastModified Time celecoxib 200 mg capsule active Not Available Not Available Not Available cetirizine 10 mg tablet TAKE 1 TABLET BY MOUTH EVERY DAY NEEDED FOR ALLERGIES active Not Available Not Available No t Available ibuprofen 800 mg tablet 2014 active Medicatio n ID: [id number] Dur ation Value: 5 Brand Name: ibuprofen Send Method: E-Prescri bed Subs Allowed: subs OK Medica tionGener icName: ibuprofen Not Available Not Available Not Available prochlorpe razine maleate 5 mg tablet 2014 active Medicatio n ID: [id number] Dur ation Value: 5 Brand Name: prochlorp erazine maleate S end Method: E-Prescri bed Subs Allowed: subs [place] [facility]: prochlorp erazine maleate Not Available Not Available Not Available meloxicam 15 mg tablet TAKE 1 TABLET BY MOUTH DAILY active Not Available Not Available No t Available prednisone 20 mg tablet TAKE 1 TABLET BY MOUTH IN THE AM FOR 3 DAYS active Not Available Not Available No t Available dextroamph etamine-am phetamine 10 mg tablet TAKE 1 TABLET BY MOUTH TWICE DAILY NEEDED active Not Available Not Available No t Available propranolo l ER 60 mg capsule,24 hr,extende d release 2014 active Medicatio n ID: [id number] Dur ation Value: 30 Brand Name: propranol ol Send Method: E-Prescri bed Subs Allowed: subs [place] [facility] icName: propranol ol Not Available Not Available Not Available tramadol 50 mg tablet TAKE 1 TABLET BY MOUTH EVERY 12 HOURS NEEDED FOR PAIN active Not Available Not Available No t Available carvedilol 3.125 mg tablet TAKE 1 TABLET BY MOUTH TWICE DAILY WITH FOOD active Not Available Not Available No t Available oxycodone- acetaminop hen 5 mg-325 mg tablet TAKE 1 TABLET BY MOUTH EVERY 8 HOURS FOR UP TO 5 DAYS NEEDED FOR SEVERE PAIN active Not Available Not Available No t Available hydromorph one 2 mg tablet TAKE 1 TABLET BY MOUTH EVERY 8 HOURS active Not Available Not Available No t Available famotidine 20 mg tablet active Not Available Not Available Not Available lorazepam 0.5 mg tablet TAKE 1 TABLET BY MOUTH TWICE DAILY NEEDED active Not Available Not Available No t Available methocarba mol 750 mg tablet TAKE 1 TABLET BY MOUTH FOUR TIMES DAILY active Not Available Not Available No t Available meclizine 25 mg tablet TAKE 1 TABLET BY MOUTH THREE TIMES DAILY active Not Available Not Available No t Available amlodipine 10 mg tablet TAKE 1 TABLET BY MOUTH EVERY DAY active Not Available Not Available No t Available benzonatat e 100 mg capsule active Not Available Not Available Not Available cephalexin 500 mg capsule active Not Available Not Available Not Available triamcinol one acetonide 0.1 % topical ointment APPLY TOPICALLY TWICE DAILY X 1 WEEK TO RASH ON RIGHT FOOT active Not Available Not Available No t Available sertraline 25 mg tablet 2014 active Medicatio n ID: [id number] Dur ation Value: 30 Brand Name: sertralin e Send Method: E-Prescri bed Subs Allowed: subs OK Medica tionGener icName: sertralin e Not Available Not Available Not Available omeprazole 20 mg capsule,de layed release TAKE 1 CAPSULE BY MOUTH EVERY DAY BEFORE A MEAL active Not Available Not Available No t Available cyanocobal novoa (vit B-12) 1,000 mcg sublingual tablet 2014 [place] ID: [id number] Dur ation Value: 30 Brand Name: cyanocoba patrizia (vitamin B-12) Sen d Method: E-Prescri bed Subs Allowed: subs OK Medica tionGener icName: cyanocoba patrizia (vitamin B-12) Not Available Not Available Not Available hydrochlor othiazide 25 mg tablet active Not Available Not Available Not Available diclofenac sodium 50 mg tablet,del ayed release 2014 active Medicatio n ID: [id number] Dur ation Value: 30 Brand Name: diclofena c sodium Se nd Method: E-Prescri bed Subs Allowed: subs OK Medica tionGener icName: diclofena c sodium Not Available Not Available Not Available Vitamin D2 1,250 mcg (50,000 unit) capsule 2014 active Medicatio n ID: [id number] Dur ation Value: 28 Brand Name: Vitamin D2 Send Method: E-Prescri bed Subs Allowed: subs OK Medica tionGener icName: Vitamin D2 Not Available Not Available Not Available fluoxetine 20 mg capsule TAKE 1 CAPSULE BY MOUTH EVERY DAY active Not Available Not Available No t Available doxycyclin e hyclate 100 mg tablet active Not Available Not Available Not Available Ventolin HFA 90 mcg/actuat ion aerosol inhaler INHALE 2 PUFFS INTO THE LUNGS EVERY 4-6 HOURS NEEDED active Not Available Not Available No t Available oxycodone 5 mg tablet TAKE 1 TABLET BY MOUTH EVERY 4 TO 6 HOURS NEEDED FOR PAIN active Not Available Not Available No t Available cyclobenza blanche 5 mg tablet active Not Available Not Available Not Available cholecalci ferol (vitamin D3) 25 mcg (1,000 unit) tablet TAKE 1 TABLET BY MOUTH EVERY MORNING active Not Available Not Available No t Available diclofenac 1 % topical gel APPLY TOPICALLY TO THE AFFECTED AREA THREE TIMES DAILY active Not Available Not Available No t Available 28 mg iron-800 mcg tablet TAKE 1 TABLET BY MOUTH DAILY active Not Available Not Available No t Available BinaxNOW COVID-19 Ag Self Test kit TEST DIRECTED TODAY active Not Available Not Available No t Available Vitals Date Recorded Body height Body mass index (BMI) Body weight Provider Name and Address Organization Details Last Updated DateTime 12/28/2023 160.02 cm 45.2 kg/m2 321886.05 g Shannan Patrick [place] - [facility] 12/28/2023 12:07:32 Social History None recorded. Functional Status None recorded. Mental Status None recorded. Family History Nothing Reported. Medical History No medical history recorded. Gynecological HistoryNo gynecological history recorded. Obstetrics History GPAL:G 0 P 0 0 0 0 Past Encounters Encounter ID Performer Location Encounter Start Date Encounter Closed Date Diagnosis/Indication Diagnosis SNOMED-CT Code Diagnosis ICD10 Code 2421 TU GARCIA MD [facility] [address] [address] 12/28/2023 11:10:16 12/28/2023 12:21:25 Sensorineural hearing loss of bilateral ears 120590788 H90.3 M??ni??re's disease 1344 5001 H81.03 Health Concerns Section Related Observation LastModified by Organization Detai ls LastModified Time None Recorded Concern Status LastModified by Organization Details LastModified Time None Recorded Advance Directives Directive None Recorded Payers None recorded. Notes Date Note Type Note Provider Name and Address Organization Details Recorded Time 12/28/2023 text/html Yolandaierdanika's diseasediagnosed in her 20sin past year felt hearing is decreasingno trial of amplification in pastfelt last year was having more dizzy flare ups as wellconstant hum is presentneeds refill of meclizine 25mg near daily - TIDdoes not recall any scans of head with MRInot adherent to low sodium diethx of gastric sleeve and takes pedialyte TU GARCIA MD [address] [place] [address], [place], [address], [place] - [facility] 12/28/2023 12:19:04 OBGyn Episode No OBEpisode recorded.
== END 2024-06-29 13:20 | disposition home or self-care (01) ==
PROVIDERS: Emergency Provider Emergency Medicine; PCP Internal Medicine
DX: S80.02XA Contusion of left knee, initial encounter (principal); W22.8XXA Striking against or struck by other objects, initial encounter; M25.562 Pain in left knee; Y93.89 Activity, other specified; Y92.810 Car as the place of occurrence of the external cause; Y99.9 Unspecified external cause status
CPT/HCPCS: 73564; 93005; 99283; 99284

== ENCOUNTER → 2024-06-29 11:46 | Outpatient (BNV) | payer MEDICAID, SELFPAY | PROVIDERS: Emergency Provider Emergency Medicine; PCP Internal Medicine; Visit Provider Internal Medicine Cardiovascular Disease | DX: R94.31 Abnormal electrocardiogram [ECG] [EKG] (principal) | CPT/HCPCS: 93010 ==

== ENCOUNTER 2024-09-06 10:36 | Outpatient (AMB) | payer MEDICAID, SELFPAY ==
--- NOTE | 2024-09-06 10:40 | A.OFFVIS_ITS ---
VS Expanded 09/06/24 10:46 BP 149/74 H Blood Pressure Location Rt brachial Blood Pressure Position Sitting Pulse 89 Pulse Source Pulse Oximeter Temp 97.3 F Temperature Source Temporal Artery Scan Pulse Oximetry 99 Oxygen Delivery Method Room Air Height 5 ft 2 in Weight 212 lb 9.6 oz BMI 38.9 Body Fat % 42.9 Body Fat Mass 91.2 Fat Free Mass 121.2 Visceral Fat Rating 12.0 Body Water % 40.7 Body Water Mass 86.4 Muscle Mass/Score 115.0 Basal Metabolic Rate/Score 1,687 Intake Visit Reasons: PO LSG 12/14/14 Allergies amoxicillin Allergy (Severe, Verified 06/29/24 09:08) DIFFICULTY BREATHING clavulanic acid Allergy (Severe, Verified 06/29/24 09:08) DIFFICULTY BREATHNG nabumetone Allergy (Severe, Verified 06/29/24 09:08) Depression Penicillins Allergy (Severe, Verified 06/29/24 09:08) Shortness of Breath, itching sulfamethoxazole Allergy (Severe, Verified 06/29/24 09:08) DIFFICULTY BREATHING, anaphylaxis trimethoprim Allergy (Severe, Verified 06/29/24 09:08) DIFFICULTY BREATHING, anaphylaxis azithromycin Allergy (Intermediate, Verified 06/29/24 09:08) DIFFICULTY BREATHING hydrocodone Allergy (Intermediate, Verified 06/29/24 09:08) DIFFICULTY BREATHING levofloxacin Allergy (Intermediate, Verified 06/29/24 09:08) AGITATION-CAN TAKE IV, BUT NOT PO ondansetron [From Zofran] Allergy (Intermediate, Verified 06/29/24 09:08) r/t prolonged QT rizatriptan [RIZATRIPTAN] Allergy (Intermediate, Verified 06/29/24 09:08) HIVES diphenhydramine [From BENADRYL] Adverse Reaction (Unknown, Verified 06/29/24 09:08) told to avoid From REGLAN Allergy (Severe, Uncoded 02/11/24 10:38) DYSPHORIA Medication List - Last Reconciled 09/06/24 by JESSICA Mtz acetaminophen ER (Tylenol 8 Hour) 650 mg PO Q8H PRN albuterol sulfate 90 mcg/actuation (ProAir HFA) 2 puffs PO Q4-6H PRN amlodipine 10 mg PO DAILY bisacodyl 10 mg (2 x 5 mg) PO BEDTIME carvedilol 3.125 mg PO BID cetirizine (All Day Allergy (cetirizine)) 10 mg PO DAILY PRN cholecalciferol (vitamin D3) 125 mcg PO DAILY diazepam (Valium) 5 mg PO TID PRN dicyclomine 20 mg PO QID PRN docusate sodium (Colace) 100 mg PO BID PRN fluticasone propionate 50 mcg/actuation 1 - 2 sprays intranasal QAM fluticasone propionate 110 mcg/actuation (Flovent HFA) 2 puffs inhalation hydromorphone (Dilaudid) 1 mg (1/2 x 2 mg) PO Q12H 7 days ibuprofen 600 mg PO TID PRN [iron dextran IV] meloxicam 15 mg PO DAILY methocarbamol 750 mg PO QID nitrofurantoin monohyd/m-cryst 100 mg (Macrobid) 100 mg PO Q12H 7 days omeprazole 20 mg PO DAILY oxycodone 5 mg PO Q6H PRN polyethylene glycol 3350 (Miralax) 17 grams PO DAILY PRN tirzepatide (weight loss) (Zepbound) 2.5 mg subcut QWEEK tramadol 50 mg PO Q12H PRN vitamin B complex (B Complex-Vitamin B12 tablet) 1 tab PO DAILY HPI Comments Details: This?is a?49?yo female who is s/p LSG 12/14/[address] Dan. Weight at last visit in February 2024 was 240.8 pounds; weight loss today of 28.2lbs since last OV.? No complaints of nausea, emesis, abdominal pain or reflux, or constipation. Was started on Adderall for ADHD and Wegovy injections about 7mo ago, was just changed to Zepbound; had also started with weight loss before started with Wegovy. Pt reports her has been out of work for several weeks, waiting for MRI; she has been busy managing her household. She had to get a new counselor but on the wait list for a new psychiatrist. Present meal plan includes: 2 Slimfast shakes (20g), one Quest bar or chips (20g), and two meals each with 6 forkfuls protein, plus 6ff salad/veg -notes she has been less consistent with shakes lately but knows she should restart Exercise routine includes: Dancefitme sanchez - better at being consistent, doing every night with her daughter Have you been diagnosed with reflux (GERD)? yes Score 0-5: 0=no symptoms, 1=noticeable but not bothersome (slight or occasional), 2=noticeable, bothersome but not daily, 3=bothersome and daily, 4=affects daily activities, 5=incapacitating, unable to do daily activities How bad is the heartburn: 1 Heartburn when lying down: 1 Heartburn when standing up: 1 Heartburn after meals: 1 Does heartburn change your diet: 3 Does heartburn wake you up from sleep: 1 Do you have difficulty swallowin Do you have pain with swallowin If you take medication for reflux, does this affect your daily life: 1 Total score: 11 PFSH Medical History Hx MRSA infection (~2019) Wears glasses Wears hearing aid in both ears Leukocytosis Ear piercing [place] DELIA (obstructive sleep apnea) Personal history of COVID-19 Renal cyst Anemia Prolonged QT interval Murmur, cardiac Thyroid condition Essential hypertension Sacroiliac joint dysfunction of right side Asthma PCOS (polycystic ovarian syndrome) Surgical History Hx of arthroscopy of left knee (09/04/23) S/P fusion of sacroiliac joint (12/23/22) History of S/P left knee arthroscopy Status post arthroscopy of shoulder H/O gastric sleeve History of ankle surgery History of laparoscopic partial gastrectomy Social History Household Members: Spouse, Family and Children Housing: House Are you a primary respiratory care technician to a significant other at home: Yes (5 year old daughter) Do you presently have visiting nurse or other home services: No Alcohol intake: former Patient Tobacco Use Status: Never used Tobacco e-Cigarette/Vaping Use: Never Used Physical Exam Vital Signs: Last Vital Signs Temp 97.3 F 09/06/24 10:46 Pulse 89 09/06/24 10:46 BP 149/74 H 09/06/24 10:46 Pulse Ox 99 09/06/24 10:46 Assessment & Plan Assessment & Plan (1) H/O gastric sleeve: Comment: 2012 Code(s): Z90.3 - Acquired absence of stomach [part of] Category: Surgical (2) Obesity: Code(s): E66.9 - Obesity, unspecified Category: Medical Plan Pt doing well on GLP1 agonist. Discussed need for adequate protein intake while on GLP1s, pt plans to use more shakes. Labs previously ordered, pt instructed to have done prior to end of this month. RTC 6mo. I spent a total of 30 minutes reviewing/updating records, examining the patient and counseling the patient on weight management as detailed above.
[2024-09-06 10:46] VITALS: BP 149/74; PULSE 89; TEMP 36.3; O2SAT 99; BMI 38.9
--- OUTSIDE RECORDS SUMMARY | 2024-09-06 11:49 | XMS_ITS | Data Portability ---
Author Organization [place] - [facility], Allergy Address [address] [address] Assessment Encounter Date Assessment Date Assessment LastModified [...] copy of the audiogram, a list of [facility] hearing aid providers, and medical clearance for [...] W/WO CONTRAST. hx of menieres 2023 024 [facility] ([facility]), [address] [place], [address], 09:47:00 Medication Orders meclizine 25 mg tablet 2023 024 [id number], [address] [place], [place], [phone], 4 12:17:08 Patient TargetsNo targets recorded. Patient InstructionsNo instructions recorded. Reason for Referral None Reported. Results Created Date Observation Date Name Description Value Unit Range Abnormal Flag Note LastModifiedBy Organization Detail LastModifiedTime 01/01/20 24 12/31/2023 MRI, brain + brain stem, w/wo contr ast [facility] Access ion Number : [id number] Patien t Name: Anton ndiaye, William [facility] Duanea l Record Number : [id number] Date of : 1974 Date of Exam: 2023 Referr ing Physic brittani: Tu Garcia Ear Nose [address] [place] [address] Exam: MR Brain (C-/C+ ) CPT 65605 Room Descri ption: [facility] Verio 3.0T MR Brain (C-/C+ ) CPT 00062 INDICA TION / CLINIC AL QUESTI ON: Sensor ineura l hearin g loss, bilate ral, , MRI, 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 [...] or abnorm al enhanc ement in the pharmacy grad intern al audito ry canals or cerebe llopon [...] onical ly Signed By: Augusta Franks MD [facility] ([facility]) [address], [place], [address], 01/04/2024 15:27:15 01/06/20 24 audio gram No observ ation record ed. BARCODE Not Available 2023 11:43:06 Result Notes None recorded. Problems Name Problem SNOMED Code Status Onset Date Resolution Date Notes Provider Name and Address Organization Details Recorded Time Sensorine ural hearing loss of bilateral ears 064254941 Active 2014 Sensorineu ral HL, bilateral; Note: Date Diagnosed: 03/21/2015 4:37 PM (389.18) Sensorin eural hearing loss, bilateral; Note: Date Diagnosed: 03/21/2015 4:37 PM (H90.3) Not Available Pending sale to [facility] 4 03:09:32 Hypertrop hy of tonsils 81121229 Active 2017 Hypertroph y of tonsils; Note: Date Diagnosed: 11/12/2017 12:00 PM (J35.1) Not Available Pending sale to [facility] 4 03:09:30 Leukocyto sis 265520015 Active 2017 Leukocytos is, unspecifie d; Note: Date Diagnosed: 11/12/2017 12:01 PM (D72.829) Not Available Pending sale to [facility] 4 03:09:32 Gastroeso phageal reflux disease without esophagit is 174302335 Active 2017 Gastro-eso phageal reflux disease without esophagiti s; Note: Date Diagnosed: 11/12/2017 12:00 PM (K21.9) Not Available Pending sale to [facility] 4 03:09:31 M??ni??re 's disease 73844630 Active 2023 TU GARCIA MD [address] [facility],[place] [address], [facility] [place], [address] , [facility] - [facility] 4 12:16:19 M??ni??re 's disease 73640613 Active 2023 TU GARCIA MD [address] [facility],[place] [address], [facility] [place], [address] , [facility] - [facility] 4 12:16:21 Problem Notes None recorded. Procedures Surgical History Date Name Laterality Status Provider Name and Address Organization Details Recorded Time 12/28/2023 Comp Audio with Tymps (02431 & 49764) completed ALFONSO MILLS [address] [facility],[place] [address], [place], [address], [facility] 12/28/2023 11:47:19 Imaging Results Imaging Date Name Status LastModified by Organiz ation Details LastModified Time 12/31/2023 MRI, brain + brain stem, w/wo contrast completed [facility] ([facility]) [address] [facility], [place], [address], 01/04/2024 15:27:15 01/06/2024 audiogram completed BARCODE Information no t available 01/06/2024 11:43:06 Procedure Notes None recorded. Medical Equipment None Reported. Allergies Allergen ID Allergen Name Allergen Category Reaction Reaction Severity Criticality Documentation Date Start Date Code Code System Note Provider Name and Address Organization Details Recorded Time 275234 Bactrim medicatio n other Not available Not available 12/08/2023 22322 9 RxNorm React ion: unkno wn, unspe cifie d;; Not Available Pending sale to [facility] 4 01:14:34 734137 hydromorp katrin medicatio n other Not available Not available 12/08/2023 3423 RxNorm React ion: unkno wn, unspe cifie d;; Not Available Pending sale to [facility] 4 01:14:35 724556 penicilli n V potassium medicatio n other Not available Not available 12/08/2023 21558 5 RxNorm React ion: unkno wn, unspe cifie d;; Not Available [facility] 4 01:14:36 259683 azithromy farhan medicatio n other Not available Not available 12/08/2023 30134 RxNorm React ion: unkno wn, unspe cifie d;; Not Available [facility] 4 01:14:37 Medications Name Sig Start Date Stop Date Status Note LastModified by Organization Details LastModified Time celecoxib 200 mg capsule active Not Available Not Available Not Available cetirizine 10 mg tablet TAKE 1 TABLET BY MOUTH EVERY DAY NEEDED FOR ALLERGIES active Not Available Not Available No t Available ibuprofen 800 mg tablet 2014 active Medicatio n ID: [id number] Dur ation Value: 5 Brand Name: ibuprofen Send Method: E-Prescri bed Subs Allowed: subs OK Medica tionGener icName: ibuprofen Not Available Not Available Not Available prochlorpe razine maleate 5 mg tablet 2014 active Medicatio n ID: [id number] Dur ation Value: 5 Brand Name: prochlorp erazine maleate S end Method: E-Prescri bed Subs Allowed: subs [place] [facility] ic[facility]: prochlorp erazine maleate Not Available Not [...] d release 2014 active Medicatio n ID: [id number] Dur ation Value: 30 Brand Name: propranol ol Send Method: E-Prescri bed Subs Allowed: subs [place] [facility] icName: propranol ol Not Available Not Available [...] mg tablet 2014 active Medicatio n ID: [id number] Dur ation Value: 30 Brand Name: sertralin [...] sublingual tablet 2014 active Medicatio n ID: [id number] Dur ation Value: 30 Brand Name: cyanocoba patrizia (vitamin B-12) Sen d Method: E-Prescri bed Subs Allowed: subs OK Medica tionGener icName: cyanocoba patrizia (vitamin B-12) Not Available Not Available Not Available hydrochlor othiazide 25 mg tablet active Not Available Not Available Not Available diclofenac sodium 50 mg tablet,del ayed release 2014 active Medicatio n ID: [id number] Dur ation Value: 30 Brand Name: diclofena c sodium Se nd Method: E-Prescri bed Subs Allowed: subs OK Medica tionGener icName: diclofena c sodium Not Available Not Available Not Available Vitamin D2 1,250 mcg (50,000 unit) capsule 2014 active Medicatio n ID: [id number] Dur ation Value: 28 Brand Name: Vitamin [...] Updated DateTime 12/28/2023 160.02 cm 45.2 kg/m2 677463.05 g Shannan Patrick [place] - [facility] 12/28/2023 12:07:32 Social History None recorded. Functional Status None recorded. Mental Status None recorded. Family History Nothing Reported. Medical History No medical history recorded. Gynecological HistoryNo gynecological history recorded. Obstetrics History GPAL:G 0 P 0 0 0 0 Past Encounters Encounter ID Performer Location Encounter Start Date Encounter Closed Date Diagnosis/Indication Diagnosis SNOMED-CT Code Diagnosis ICD10 Code Diagnosis Note [id number] TU GARCIA MD [facility] [address] [address] 12/28/2023 11:10:16 12/28/2023 12:21:25 Sensorineural hearing loss of bilateral ears 778067669 H90.3 Audiologic al evaluation results:Ri ght ear:{{Norm al auditory thresholds Normal sloping at Mild SNHL rising to normal#}} with {{excellen t* good fa ir poor no t measurable }} speech discrimina tion.Left ear:{{Norm al auditory thresholds Normal sloping at Modera te rising to mild SNHL#}} with {{excellen t* good fa ir poor no t measurable }} speech discrimina tion. Tympanomet ry:Right Ear:{{Type A* Type As Type Ad Type C Type C, shallow & rounded Ty pe B Type B with large volume Cou ld not maintain a hermetic seal}}Left Ear:{{Type A* Type As Type Ad Type C Type C, shallow & rounded Ty pe B Type B with large volume Cou ld not maintain a hermetic seal}} M??ni??re's disease 1344 5001 H81.03 Health Concerns Section Related Observation LastModified by Organization Detai ls LastModified Time None Recorded Concern Status LastModified by Organization Details LastModified Time None Recorded Advance Directives Directive None Recorded Payers None recorded. Notes Date Note Type Note Provider Name and Address Organization Details Recorded Time 12/28/2023 text/html Menierdanika's diseasediagnosed in her 20sin past year felt hearing is decreasingno trial of amplification in pastfelt last year was having more dizzy flare ups as wellconstant hum is presentneeds refill of meclizine 25mg near daily - TIDdoes not recall any scans of head with MRInot adherent to low sodium diethx of gastric sleeve and takes pedialyte TU GARCIA MD [address] [place] [address], [address], [place] - [facility] 12/28/2023 12:19:04 OBGyn Episode No OBEpisode recorded.
--- OUTSIDE RECORDS SUMMARY | 2024-09-06 11:49 | XMS_ITS | Encounter Summary ---
Author Organization [employer] Address [address] [facility] 7 [place] [address] Care Team Providers Care Mirror Installer Name Role Phone Porfirio Goodman MD Primary Care Prov ider Reason for Visit * Reason Onset Date Comments Med Refill 08/26/2024 Encounter Details Date Type Department Care Team (Late st Contact Info) Description 08/26/2024 Refill [facility] MEDICINE [address] [place] [address] Porfirio Goodman MD [address] [place] [address] Social History Tobacco Use Types Packs/Day Years Used Date Smoking Tobacco: Never Passive Smoke Exposure: Never Smokeless Tobacco: Never Alcohol Use Standard Drinks/Week Comments Never 0 (1 standard drink = 0.6 oz pur e alcohol) Housing Stability Answer Date Recorded What is your housing situation today? I have mike vyas 02/01/[address] you li ve. Do you have problems with any of the following? None of the above 02/01/2024 Food Insecurity Answer Date Recorded Within the past 12 months, y ou worried that your food would run out before you got money to buy more: Never True 02/01/2024 Within the past 12 months,th e food you bought just didn't last and you didn't have enough money to get more: Never True 02/2024 Transportation Answer Date Recorded In the past 12 months, has l ack of transportation kept you from medical appts, meetings, work or from getting things needed for daily living? No 02/01/2024 Utilities Answer Date Recorded In the past 12 months, has t he electric, gas, oil or water company threatened to shut off services in your home? No 02/01/2024 Depression Answer Date Recorded Patient Health Questionnaire-2 Score 0 08/27/2022 Internet Access Answer Date Recorded Internet Access Q1 No 03/25/2024 Internet Access Q2 I do not want or need it 02/26 Comments No Sex and Gender Information Value Date Recorded Sex Assigned at Female 05/26/2022 10:15 AM EDT Legal Sex Female 10:15 AM EDT Gender Identity Female 05/26/2022 10:15 AM EDT Sexual Orientation Straight 05/26/2022 10 :15 AM EDT documented as of this encounter Miscellaneous Notes * Telephone Encounter - Alysha Nicholson - 08/26/2024 9:40 AM EST TC from pt requesting medication refill. Medications needing refill : amphetamine-dextroamphetamine (Adderall) 10 MG tablet To be sent to: [id number] - [place] - [address] [facility] [address] documented in this encounter Plan of Treatment Not on file documented as of this encounter Visit Diagnoses Not on filedocumented in this encounter Care Teams Mirror Installer Relationship Specialty Start Date End Date Porfirio Goodman MD [address] [place], [place] [address] [place] [address] PCP - General Internal Medicine 12/05/19 Amber Mittal Dairy Department ManagerEntry Level Administrative Assistant 04/20/24 documented as of this encounter
--- OUTSIDE RECORDS SUMMARY | 2024-09-06 11:49 | XMS_ITS | Encounter Summary ---
Author Organization [employer] Address [address] [facility] 7 [place] [address] Care Team Providers Care Waiter/Waitress Tavern Name Role Phone Porfirio Goodman MD Primary Care Prov ider Encounter Details Date Type Department Care Team ([facility] st Contact Info) Description 08/18/2024 Orders Only [facility] MED & PEDS [address] [place], [place] [phone] Porfirio Goodman MD [address] [place] [address] Social History Tobacco Use Types Packs/Day Years [...] AM EDT documented as of this encounter Plan of Treatment Not on file documented as of this encounter Visit Diagnoses Not on filedocumented in this encounter Care Teams Waiter/Waitress Tavern Relationship Specialty Start Date End Date Porfirio Goodman MD [address] [place] [address] PCP - General Internal Medicine 12/05/19 Amber Mittal Qa Software Test EngineerMedical Billing Assistant 04/20/24 documented as of this encounter
--- OUTSIDE RECORDS SUMMARY | 2024-09-06 11:49 | XMS_ITS | Encounter Summary ---
Author Organization [employer] Address 75 [facility] 7 [place] [address] Care Team Providers Care Auto Service Mechanic Name Role Phone Porfirio Goodman MD Primary Care Prov ider Reason for Visit * Reason Onset Date Comments Walk-In 08/16/2024 Encounter Details Date Type Department Care Team ([facility] st Contact Info) Description 08/16/2024 Telephone [facility] MED & PEDS [address] [place], [place] [phone] Porfirio Goodman MD [address] [place], [place] [phone] Walk-In Social History Tobacco Use Types Packs/Day Years [...] encounter Miscellaneous Notes * Telephone Encounter - Carmen Barraza RN - 08/18/2024 10:06 AM EST TC to pt- spoke to PCP who agrees to send med until she is seen by new psych. She is on a waiting list. Pt also advised med sent to her requested pharmacy this morning. * Telephone Encounter - Kisha Michael RN - 08/18/2024 9:13 AM EST Tc to pt to let them know per PCP Adderall refill sent! Pt advised that refill should be at their pharmacy on file and should be available for apple picker today. Pt verbalized understanding and no further questions or concerns at this time. * Addendum Note - Kisha Michael RN - 08/16/2024 12:31 PM ESTAddended by: KISHA MICHAEL on: 08/16/2024 12:31 PM Modules accepted: Orders * Telephone Encounter - Kisha Michael RN - 08/16/2024 11:54 AM EST Pt presented to walk in with their reports they are our of their adderall and need a refill. Pt reports last psychiatrist office had closed down who have been sending their refill to them monthly but never sent one for this month. Pt did complete paperwork to start seeing another psychiatrist located at [facility] in [place], [place]. Pt reports they are not established yet and requesting if their provider can do anther refill until they establish care. Pt advised we'll send request toPCP and call back with updates. Pt verbalized understanding and medication pended to PCP for review. * Telephone Encounter - Iris Sanchez - 08/16/2024 11:24 AM EST Pt walked in stating her psychiatrist office closed down and has no more meds. Pt is requesting to speak to a nurse to weigh out her options. documented in this encounter Plan of Treatment Not on file documented as of this encounter Visit Diagnoses Not on filedocumented in this encounter Care Teams Auto Service Mechanic Relationship Specialty Start Date End Date Porfirio Goodman MD [address] [place] [address] PCP - General Internal Medicine 12/05/19 Amber Mittal Concrete PourerRing Maker 04/20/24 documented as of this encounter
--- OUTSIDE RECORDS SUMMARY | 2024-09-06 11:49 | XMS_ITS | Encounter Summary ---
Author Organization [employer] Address [address] [address] Care Team Providers Care Call Or Contact Centre Manager Name Role Phone Porfriio Goodman MD Primary Care Prov ider Reason for Visit * Reason Comments Med Refill Encounter Details Date Type Department Care Team ([facility] st Contact Info) Description 12/17/2022 Refill [facility] MED & PEDS [address] [place] [address] Porfirio Goodman MD [address] [place] [address] Post-nasal drip Social History Tobacco Use Types Packs/Day Years Used Date Smoking Tobacco: Never Passive Smoke Exposure: Never Smokeless Tobacco: Never Alcohol Use Standard Drinks/Week Comments Never 0 (1 standard drink = 0.6 oz pur e alcohol) Depression Answer Date Recorded Patient Health Questionnaire-2 Score 0 08/27/2022 Comments No Sex and Gender Information Value Date Recorded Sex Assigned at Female 05/26/2022 10:15 AM EDT Legal Sex Female 10:15 AM EDT Gender Identity Female 05/26/2022 10:15 AM EDT Sexual Orientation Straight 05/26/2022 10 :15 AM EDT COVID-19 Exposure Response Date Recorded In the last 10 days, have yo u been in contact with someone who was confirmed or suspected to have Coronavirus/COVID-19? No / Unsure 11/28/2022 10:52 AM EDT documented as of this encounter Plan of Treatment Not on file documented as of this encounter Visit Diagnoses Diagnosis Post-nasal drip Postnasal drip documented in this encounter Care Teams Call Or Contact Centre Manager Relationship Specialty Start Date End Date Porfirio Goodman MD [address] [place] [address] PCP - General Internal Medicine 12/05/19 Amber Mittal Woodworking Shop LaborerSoftware Design Engineer 04/20/24 documented as of this encounter
--- OUTSIDE RECORDS SUMMARY | 2024-09-06 11:49 | XMS_ITS | Encounter Summary ---
Author Organization [employer] Address [address] [facility] [address] [place] [address] Care Team Providers Care Bottom Liner Name Role Phone Porfiroi Goodman MD Primary Care Prov ider Encounter Details Date Type Department Care Team (Late st Contact Info) Description 08/25/2024 Orders Only [facility] MEDICINE [address] [place] [address] ProviderRussell MD Social History Tobacco Use Types Packs/Day Years Used Date Smoking Tobacco: Never Passive Smoke Exposure: Never Smokeless Tobacco: Never Alcohol Use Standard Drinks/Week Comments Never 0 (1 standard drink = 0.6 oz pur e alcohol) Housing Stability Answer Date Recorded What is your housing situation today? I have mikeradha vyas 02/01/[address] you [...] on file documented as of this encounter Procedures Procedure Name Priority Date/Time Associated Diagnosis Comments MAMMOGRAPHY Routine 05/04/2024 10:27 AM EDT documented in this encounter Results * Hm Mammography (05/04/2024 10:27 AM EDT) Anatomical Region Laterality Modality Other Historical Provider HEALTH MAINTENANCE Final Result documented in this encounter Visit Diagnoses Not on filedocumented in this encounter Care Teams Bottom Liner Relationship Specialty Start Date End Date Porfirio Goodman MD [address] [place] [address] PCP - General Internal Medicine 12/05/19 Amber Mittal Atg ArchitectRuby Developer 04/20/24 documented as of this encounter
--- OUTSIDE RECORDS SUMMARY | 2024-09-06 11:50 | XMS_ITS | Encounter Summary ---
Author Organization [employer] Address [address] [facility] 7 [place] [address] Care Team Providers Care Railroad Inspector Name Role Phone Porfirio Goodman MD Primary Care Prov ider Reason for Visit * Reason Onset Date Comments Nurse Triage 02/29/2024 Encounter Details Date Type Department Care Team (Late st Contact Info) Description 02/29/2024 Telephone [facility] MEDICINE [address] [place] [address] Porfirio Goodman MD [address] [place] [address] Nurse Triage Social History Tobacco Use Types Packs/Day Years [...] encounter Miscellaneous Notes * Telephone Encounter - Myrtle Loyola RN - 02/29/2024 9:46 AM EDT Triage call attempted x2, Pt didn't answer. Left voice message x2 to call [facility] triage line at [phone] when Pt gets an opportunity. * Telephone Encounter - Mamie Goncalves - 02/29/2024 9:14 AM EDT Symptom: Fall Outcome: Schedule an appointment to be seen within 24 hours Reason: body aches The caller accepted this outcome documented in this encounter Plan of Treatment Not on file documented as of this encounter Visit Diagnoses Not on filedocumented in this encounter Care Teams Railroad Inspector Relationship Specialty Start Date End Date Porfirio Goodman MD [address] [place] [address] PCP - General Internal Medicine 12/05/19 Amber Mittal Peanut FarmerWelder 2Nd Shift 04/20/24 documented as of this encounter
--- OUTSIDE RECORDS SUMMARY | 2024-09-06 11:50 | XMS_ITS | Encounter Summary ---
Author Organization [employer] Address 75 [facility] 7 [place] [address] Care Team Providers Care Land Leveler Name Role Phone Porfirio Goodman MD Primary Care Prov ider Reason for Visit * Reason Onset Date Comments Medication Question 08/02/2024 Encounter Details Date Type Department Care Team ([facility] st Contact Info) Description 08/02/2024 Telephone [facility] CHC MED & PEDS [address] [place], [place] [phone] Porfirio Goodman MD [address] [place], [place] [phone] Medication Question Social History Tobacco Use Types Packs/Day Years [...] encounter Miscellaneous Notes * Telephone Encounter - Becky Ramirez - 08/02/2024 11:01 AM EST TC from pt requesting a call back to go over medication Semaglutide-Weight Management 2.4 MG/0.75MLsolution auto-injector. documented in this encounter Plan of Treatment Not on file documented as of this encounter Visit Diagnoses Not on filedocumented in this encounter Care Teams Land Leveler Relationship Specialty Start Date End Date Porfirio Goodman MD [address] [place] [address] PCP - General Internal Medicine 12/05/19 Amber Mittal English TutorMolding Machine Setter 04/20/24 documented as of this encounter
--- OUTSIDE RECORDS SUMMARY | 2024-09-06 11:50 | XMS_ITS | Encounter Summary ---
Author Organization [employer] Address [address] [facility] [address] [address] Care Team Providers Care Media Services Specialist Name Role Phone Porfirio Goodman MD Primary Care Prov ider Reason for Visit * Reason Onset Date Comments Prior Authorization 08/09/2024 Encounter Details Date Type Department Care Team ([facility] st Contact Info) Description 08/09/2024 Telephone [facility] CHC MED & PEDS 505 [place], [place] [phone] Porfirio Goodman MD 505 [place], [place] [phone] Prior Authorization Social History Tobacco Use Types Packs/Day Years [...] encounter Miscellaneous Notes * Telephone Encounter - Yuni Montague LPN - 08/09/2024 12:03 PM EST Please consider sending zepbound for this pt Tc from pt requesting a PA as she called pharmacy and was told they're waiting on PA for (Wegovy) from provider. * Telephone Encounter - Lori Burr - 08/09/2024 11:15 AM EST Tc from pt requesting a PA as she called pharmacy and was told they're waiting on PA for (Wegovy) from provider. documented in this encounter Plan of Treatment Not on file documented as of this encounter Visit Diagnoses Not on filedocumented in this encounter Care Teams Media Services Specialist Relationship Specialty Start Date End Date Porfirio Goodman MD [address] [place] [address] PCP - General Internal Medicine 12/05/19 Amber Mittal HitcherMaternal Child Nurse 04/20/24 documented as of this encounter
--- OUTSIDE RECORDS SUMMARY | 2024-09-06 11:50 | XMS_ITS | Encounter Summary ---
Author Organization [employer] Address 75 [facility] 7 [place] [address] Care Team Providers Care Student Services Coordinator Name Role Phone Porfirio Goodman MD Primary Care Prov ider Encounter Details Date Type Department Care Team (Late st Contact Info) Description 06/05/2023 Orders Only [facility] CHC MED & PEDS 505 [place] [address] Ambika Webster MD 505 [place] [address] Essential hypertension (Primary Dx) Social History Tobacco Use Types Packs/Day Years Used Date Smoking Tobacco: Never Passive Smoke Exposure: Never Smokeless Tobacco: Never Alcohol Use Standard Drinks/Week Comments Never 0 (1 standard drink = 0.6 oz pur e alcohol) Housing Stability Answer Date Recorded What is your housing situation today? I have mike vyas 05/13/[address] you li ve. Do you have problems with any of the following? None of the above 05/13/2023 Food Insecurity Answer Date Recorded Within the past 12 months, y ou worried that your food would run out before you got money to buy more: Never True 05/13/2023 Within the past 12 months,th e food you bought just didn't last and you didn't have enough money to get more: Never True Transportation Answer Date Recorded In the past 12 months, has l ack of transportation kept you from medical appts, meetings, work or from getting things needed for daily living? No 05/13/2023 Utilities Answer Date Recorded In the past 12 months, has t he electric, gas, oil or water company threatened to shut off services in your home? No 05/13/2023 Depression Answer Date Recorded Patient Health Questionnaire-2 [...] as of this encounter Visit Diagnoses Diagnosis Essential hypertension- Primary Unspecified essential hypertension documented in this encounter Care Teams Student Services Coordinator Relationship Specialty Start Date End Date Porfirio Goodman MD 505 [place] [address] PCP - General Internal Medicine 12/05/19 Amber Mittal Tank InspectorRv Repairer 04/20/24 documented as of this encounter
--- OUTSIDE RECORDS SUMMARY | 2024-09-06 11:50 | XMS_ITS | Encounter Summary ---
Author Organization [employer] Address 75 [facility] 7 [place] [address] Care Team Providers Care Development System Efficiency Manager Name Role Phone Porfirio Goodman MD Primary Care Prov ider Encounter Details Date Type Department Care Team (Late st Contact Info) Description 04/28/2024 Orders Only [facility] CHC MED & PEDS 505 [place], [place] [phone] Ambika Webster MD 505 [place] [address] Class 3 severe obesity due to excess calories with serious comorbidity and body mass index (BMI) of 45.0 to 49.9 in adult (CMS/HCC) (Primary Dx) Social History Tobacco Use Types [...] as of this encounter Visit Diagnoses Diagnosis Class 3 severe obesity due to excess calories with serious comorbidity and body mass index (BMI) of 45.0 to 49.9 in adult (CMS/HCC)- Primary documented in this encounter Care Teams Development System Efficiency Manager Relationship Specialty Start Date End Date Porfirio Goodman MD [address] [place] [address] PCP - General Internal Medicine 12/05/19 Amber Mittal Liquor RectifierEvening Sitter 04/20/24 documented as of this encounter
--- OUTSIDE RECORDS SUMMARY | 2024-09-06 11:50 | XMS_ITS | Encounter Summary ---
Author Organization [employer] Address 75 [facility] 7 [place] [address] Care Team Providers Care Tai Chi Instructor Name Role Phone Porfirio Goodman MD Primary Care Prov ider Reason for Visit * Reason Onset Date Comments Med Refill 06/27/2024 Encounter Details Date Type Department Care Team ([facility] st Contact Info) Description 06/27/2024 Refill [facility] MED & PEDS 505 [place] [address] Porfirio Goodman MD 505 [place], [place] [phone] Social History Tobacco Use Types Packs/Day Years [...] on filedocumented in this encounter Care Teams Tai Chi Instructor Relationship Specialty Start Date End Date BaerPorfirio Escobar MD [address] [place] [address] PCP - General Internal Medicine 12/05/19 Amber Mittal Solutions OperatorContinuing Education Instructor 04/20/24 documented as of this encounter
--- OUTSIDE RECORDS SUMMARY | 2024-09-06 11:50 | XMS_ITS | Encounter Summary ---
Author Organization [employer] Address [address] [address] Care Team Providers Care Generating Station Mechanic Name Role Phone Porfirio Goodman MD Primary Care Prov ider Reason for Visit * Reason Onset Date Comments Results 09/22/2022 Encounter Details Date Type Department Care Team ([facility] st Contact Info) Description 09/22/2022 Telephone [facility] MEDICINE 230 [place] [address] Porfirio Goodman MD 505 [place] [address] Results Social History Tobacco Use Types Packs/Day Years Used Date Smoking Tobacco: Never Smokeless Tobacco: Never Alcohol Use Standard Drinks/Week Comments Never 0 (1 standard drink = 0.6 oz pur e alcohol) Depression Answer Date Recorded Patient Health Questionnaire-2 Score 0 08/27/2022 Comments Unknown Sex and Gender Information Value Date Recorded [...] suspected to have Coronavirus/COVID-19? No / Unsure 09/19/2022 3:28 PM EST documented as of this encounter Miscellaneous Notes * Telephone Encounter - Fermín Childers - 09/22/2022 4:22 PM EST Tc from pt requesting XR results please contact pt at [phone] documented in this encounter Plan of Treatment Not on file documented as of this encounter Visit Diagnoses Not on filedocumented in this encounter Care Teams Generating Station Mechanic Relationship Specialty Start Date End Date Porfirio Goodman MD [address] [place] [address] PCP - General Internal Medicine 12/05/19 Amber Mittal Waste ChopperLead Cargoman 04/20/24 documented as of this encounter
--- OUTSIDE RECORDS SUMMARY | 2024-09-06 11:50 | XMS_ITS | Encounter Summary ---
Author Organization [employer] Address 75 [facility] [address] [address] Care Team Providers Care Parts Consultant Name Role Phone Porfirio Goodman MD Primary Care Prov ider Reason for Visit * Reason Onset Date Comments Results 06/27/2024 Encounter Details Date Type Department Care Team ([facility] st Contact Info) Description 06/27/2024 Telephone [facility] MEDICINE 230 [place] [address] Porfirio Goodman MD 505 [place] [address] Results Social History Tobacco Use Types Packs/Day [...] encounter Miscellaneous Notes * Telephone Encounter - Michael Mittal - 06/27/2024 11:47 AM EST TC from pt requesting call back regarding Results. Type of results: Labs Date when done: 06/22/24 Facility: [facility] Labs documented in this encounter Plan of Treatment Not on file documented as of this encounter Visit Diagnoses Not on filedocumented in this encounter Care Teams Parts Consultant Relationship Specialty Start Date End Date Porfirio Goodman MD [address] [place] [address] PCP - General Internal Medicine 12/05/19 Amber Mittal Manager PhotoOcean Freight Agent 04/20/24 documented as of this encounter
--- OUTSIDE RECORDS SUMMARY | 2024-09-06 11:50 | XMS_ITS | Encounter Summary ---
Author Organization [employer] Address [address] [place] [address] Care Team Providers Care Document Improvement Specialist Name Role Phone Porfirio Goodman MD Primary Care Prov ider Encounter Details Date Type Department Care Team (Latest Contact Info) Description 09/09/2021 [facility] Dental, Provider, DDS Social History Tobacco Use Types Packs/Day Years Used Date Smoking Tobacco: Never Assessed Comments Unknown Sex and Gender Information Value [...] on filedocumented in this encounter Care Teams Document Improvement Specialist Relationship Specialty Start Date End Date Porfirio Goodman MD [address] [place] [address] PCP - General Internal Medicine 12/05/19 Amber Mittal Applied Computer Science ProfessorFood Stand Manager 04/20/24 documented as of this encounter
--- OUTSIDE RECORDS SUMMARY | 2024-09-06 11:50 | XMS_ITS | Encounter Summary ---
Author Organization [employer] Address 75 [facility] 7 [place] [address] Care Team Providers Care Beef Skinner Name Role Phone Porfirio Goodman MD Primary Care Prov ider Reason for Visit * Reason Comments Med Refill Encounter Details Date Type Department Care Team ([facility] st Contact Info) Description 09/02/2024 Refill [facility] CHC MED & PEDS 505 [place] [address] Porfirio Goodman MD 505 [place] [address] Social History Tobacco Use Types Packs/Day Years [...] on filedocumented in this encounter Care Teams Beef Skinner Relationship Specialty Start Date End Date Porfirio Goodman MD [address] [place] [address] PCP - General Internal Medicine 12/05/19 Amber Mittal Bottom BrusherDeputy Administrator 04/20/24 documented as of this encounter
--- OUTSIDE RECORDS SUMMARY | 2024-09-06 11:50 | XMS_ITS | Encounter Summary ---
Author Organization [employer] Address 75 [facility] 7 [place] [address] Care Team Providers Care Tissue Rewinder Name Role Phone Porfirio Goodman MD Primary Care Prov ider Reason for Visit * Reason Onset Date Comments Nurse Triage 01/01/2024 Encounter Details Date Type Department Care Team (Late st Contact Info) Description 01/01/2024 Telephone [facility] MEDICINE 230 [place] [address] Porfirio Goodman MD 505 [place] [address] Nurse Triage Social History Tobacco Use Types [...] * Telephone Encounter - Michael Mittal - 01/01/2024 10:08 AM EDT Symptoms: Back Pain - Not From Injury, Cough Outcome: Schedule an urgent appointment (within 1 hour) or talk to a nurse or provider soon Reason: Weakness of the le documented in this encounter Plan of Treatment Not on file documented as of this encounter Visit Diagnoses Not on filedocumented in this encounter Care Teams Tissue Rewinder Relationship Specialty Start Date End Date Porfirio Goodman MD [address] [place] [address] PCP - General Internal Medicine 12/05/19 Amber Mittal Millwork EstimatorMobile Home Installer 04/20/24 documented as of this encounter
--- OUTSIDE RECORDS SUMMARY | 2024-09-06 11:50 | XMS_ITS | Encounter Summary ---
Author Organization [employer] Address [address] [facility] [address] 7t [place] [address] Care Team Providers Care Battery Starter Name Role Phone Porfirio Goodman MD Primary Care Prov ider Reason for Visit * Reason Onset Date Comments Med Refill 01/11/2024 Encounter Details Date Type Department Care Team (Late st Contact Info) Description 01/11/2024 Refill [facility] [address] [place] [phone] Doug Vargas MD [address] [place] [phone] Abdominal wall pain Social History Tobacco Use Types Packs/Day Years [...] as of this encounter Visit Diagnoses Diagnosis Abdominal wall pain Abdominal pain, unspecified site documented in this encounter Care Teams Battery Starter Relationship Specialty Start Date End Date Porfirio Goodman MD [address] [place] [address] PCP - General Internal Medicine 12/05/19 Amber Mittal Clinical Exercise SpecialistResearch Worker Kitchen 04/20/24 documented as of this encounter
--- OUTSIDE RECORDS SUMMARY | 2024-09-06 11:50 | XMS_ITS | Encounter Summary ---
Author Organization [employer] Address 75 [facility] 7 [place] [address] Care Team Providers Care Saw Feeder Name Role Phone Porfirio Goodman MD Primary Care Prov ider Reason for Visit * Reason Comments Med Refill Encounter Details Date Type Department Care Team ([facility] st Contact Info) Description 04/27/2024 Refill [facility] MED & PEDS 505 [place] [address] Porfirio Goodman MD 505 [place] [address] Social History Tobacco Use Types Packs/Day Years [...] on filedocumented in this encounter Care Teams Saw Feeder Relationship Specialty Start Date End Date Porfirio Goodman MD [address] [place] [address] PCP - General Internal Medicine 12/05/19 Amber Mittal ShinglerManager Reliability 04/20/24 documented as of this encounter
--- OUTSIDE RECORDS SUMMARY | 2024-09-06 11:50 | XMS_ITS | Encounter Summary ---
Author Organization [employer] Address 75 [facility] 7 [place] [address] Care Team Providers Care Supervisory Clerk Name Role Phone Porfirio Goodman MD Primary Care Prov ider Reason for Visit * Reason Comments Med Refill Encounter Details Date Type Department Care Team ([facility] st Contact Info) Description 04/27/2024 Refill [facility] MED & PEDS 505 [place] [address] Porfirio Goodman MD 505 [place] [address] Social History Tobacco Use Types Packs/Day Years [...] on filedocumented in this encounter Care Teams Supervisory Clerk Relationship Specialty Start Date End Date Porfirio Goodman MD [address] [place] [address] PCP - General Internal Medicine 12/05/19 Amber Mittal Municipal ClerkBrand Attendant 04/20/24 documented as of this encounter
--- OUTSIDE RECORDS SUMMARY | 2024-09-06 11:50 | XMS_ITS | Encounter Summary ---
Author Organization [employer] Address 75 [facility] 7 [place] [address] Care Team Providers Care Damage Adjuster Name Role Phone Porfirio Goodman MD Primary Care Prov ider Encounter Details Date Type Department Care Team (Late st Contact Info) Description 10/29/2023 Orders Only [facility] CHC MED & PEDS 505 [place], [place] [phone] Ambika Webster MD 505 [place] [address] Low vitamin D level (Primary Dx); Other iron deficiency anemia Social History Tobacco Use Types Packs/Day Years [...] as of this encounter Plan of Treatment Scheduled Orders Name Type Priority Associated Diagnoses Orde r Schedule Iron And Total Iron Binding Capacity Lab Routine Other iron deficiency anemia Expected: 10/29/2023, Expires: 10/28/2024 Ferritin Lab Routine Other iron deficiency anemia Expected: 10/29/2023, Expires: 10/28/2024 documented as of this encounter Visit Diagnoses Diagnosis Low vitamin D level- Primary Other iron deficiency anemia documented in this encounter Care Teams Damage Adjuster Relationship Specialty Start Date End Date Porfirio Goodman MD [address] [place] [address] PCP - General Internal Medicine 12/05/19 Amber Mittal Grain Drier OperatorSwitchboard Operator Assistant 04/20/24 documented as of this encounter
--- OUTSIDE RECORDS SUMMARY | 2024-09-06 11:50 | XMS_ITS | Encounter Summary ---
Author Organization [employer] Address 75 [facility] 7 [place] [address] Care Team Providers Care Gas Inspector Name Role Phone Porfirio Goodman MD Primary Care Prov ider Reason for Visit * Reason Onset Date Comments Medication Question 04/27/2024 Encounter Details Date Type Department Care Team ([facility] st Contact Info) Description 04/27/2024 Telephone [facility] CHC MED & PEDS 505 [place], [place] [phone] Porfirio Goodman MD 505 [place], [place] [phone] Medication Question Social History Tobacco Use Types [...] encounter Miscellaneous Notes * Telephone Encounter - Pascale Burr - 05/03/2024 10:[address]T Good [address] Dr. Baer, patient needs an order for a home sleep study. * Telephone Encounter - Debbi Paula RN - 04/28/2024 9:15 AM EDT TC to [facility] pharmacy, pharmacist states somehow wegovy appeared in their system as no longer having refills. Med queued to covering provider. * Telephone Encounter - Halima Rogers - 04/27/2024 4:11 PM EDT Tc from pt requesting to speak to nurse regarding medication Semaglutide-Weight Management (Wegovy)0.5 MG/0.5ML solution auto-injector. Refill was denied. Contact pt at [phone] documented in this encounter Plan of Treatment Not on file documented as of this encounter Visit Diagnoses Not on filedocumented in this encounter Care Teams Gas Inspector Relationship Specialty Start Date End Date Porfirio Goodman MD [address] [place] [address] PCP - General Internal Medicine 12/05/19 Amber Mittal Sewer RepairerTechnical Solutions Director 04/20/24 documented as of this encounter
--- OUTSIDE RECORDS SUMMARY | 2024-09-06 11:50 | XMS_ITS | Encounter Summary ---
Author Organization [employer] Address 75 [facility] 7 [place] [address] Care Team Providers Care Supervisor Cell Operation Name Role Phone Porfirio Goodman MD Primary Care Prov ider Encounter Details Date Type Department Care Team ([facility] st Contact Info) Description 08/09/2024 Orders Only [facility] CHC MED & PEDS 505 [place], [place] [phone] Porfirio Goodman MD 505 [place] [address] Social History Tobacco Use Types Packs/Day Years [...] on filedocumented in this encounter Care Teams Supervisor Cell Operation Relationship Specialty Start Date End Date Porfirio Goodman MD [address] [place] [address] PCP - General Internal Medicine 12/05/19 Amber Mittal Postbed StitcherNeonatal Specialist 04/20/24 documented as of this encounter
--- OUTSIDE RECORDS SUMMARY | 2024-09-06 11:50 | XMS_ITS | Encounter Summary ---
Author Organization [employer] Address 75 [facility] 7 [place] [address] Care Team Providers Care Copy Clerk Name Role Phone Porfirio Goodman MD Primary Care Prov ider Reason for Visit * Reason Onset Date Comments Lab Orders 10/23/2023 Encounter Details Date Type Department Care Team (Late st Contact Info) Description 10/23/2023 Telephone [facility] MEDICINE 230 [place] [address] Porfirio Goodman MD 505 [place] [address] Lab Orders Social History Tobacco Use Types Packs/Day Years [...] encounter Miscellaneous Notes * Telephone Encounter - Wing Warren RN - 10/23/2023 4:00 PM EDT Tc to pt regarding request for anemia labs. Pt reports she has history of anemia and her last infusion was last year. Pt reports feeling tried, constantly cold, and has headaches recently. Scheduled pt with Dr. Webster. For 10/25 at 1:20 pm. Pt verbalized understanding and agreement with plna * Telephone Encounter - Nigel Miller - 10/23/2023 1:49 PM EDT Tc from pt requesting lab work for anemia. Please contact at [phone] documented in this encounter Plan of Treatment Not on file documented as of this encounter Visit Diagnoses Not on filedocumented in this encounter Care Teams Copy Clerk Relationship Specialty Start Date End Date Porfirio Goodman MD [address] [place] [address] PCP - General Internal Medicine 12/05/19 Amber Mittal Service Transformer Repair SupervisorDatabase Dba 04/20/24 documented as of this encounter
--- OUTSIDE RECORDS SUMMARY | 2024-09-06 11:50 | XMS_ITS | Clinical Summary ---
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 Name Role Phone oPrfirio Goodman MD Primary Care Prov ider Allergies Active Allergy Reactions Criticality Noted Date Comments Amoxicillin-Pot Clavulanate 09/19/2022 Other reaction(s): Difficulty breathing Azithromycin 10/16/2010 Other reaction(s): unspecified Clavulanic Acid 10/16/2010 Other reaction(s): unspecified Diphenhydramine 11/01/2021 Hydrocodone 10/16/2010 Other reaction(s): Difficulty breathing, unspecified Hydrocodone-Acetaminophe n Shortness of breath High 05/16/2021 Levofloxacin 10/16/2010 Other reaction(s): unspecified Metoclopramide 11/01/2021 Nabumetone 11/01/2021 Ondansetron 11/01/2021 Penicillins Itching,Shortness of breath High 10/16/2010 Other reaction(s): unspecified Rizatriptan 11/01/2021 Sulfa Antibiotics 09/19/2022 Sulfamethoxazole 10/16/2010 Other reaction(s): unspecified Sulfamethoxazole-Trimeth oprim Medium 11/25/2006 Other reaction(s): Swelling of throat, Throat Tightness Sulfanilamide Anaphylaxis High 05/16/2021 Trimethoprim 10/16/2010 Other reaction(s): unspecified Medications Flovent HFA 110 MCG/ACT inhalerIndicati ons:Moderate persistent asthma without complication Inhale 2 puffs in the morning and at bedtime. 12 g 2 07/14/20 22 Active B Complex Vitamins (vitamin B complex) tablet Take 1 tablet by mouth in the morning. 08/16/19 23 Active diazePAM (Valium) 5 MG tablet Take 5 mg by mouth if needed in the morning, at noon, and at bedtime. 04/24/20 22 Active LORazepam (Ativan) 0.5 MG tablet Take 0.25 mg by mouth. 04/20/20 18 Active polyethylene glycol, PEG, 3350 (Glycolax) 17 GM/SCOOP powder TAKE 17 GRAMS BY MOUTH DAILY 07/15/20 22 Active Diclofenac Sodium 1 % gelIndications: Left medial knee pain To apply to the affected area 3 times a day. 100 g 10/30/19 23 Active fluticasone (Flonase) 50 MCG/ACT nasal sprayIndication s:Post-nasal drip SHAKE LIQUID AND USE 1 TO 2 SPRAYS IN EACH NOSTRIL EVERY MORNING 48 g 03/17/20 23 Active famotidine (Pepcid) 20 MG tabletIndicatio ns:Other chest pain Take 1 tablet (20 mg) by mouth 2 times daily. 60 tablet 11 04/27/20 23 Active Diclofenac Sodium 1 % gel To apply to the affected area 3 times a day 100 g 06/17/20 23 Active cholecalciferol (Vitamin D-3) 25 MCG (1000 UT) tabletIndicatio ns:Low vitamin D level Take 1 tablet (25 mcg) by mouth in the morning. 60 tablet 11 10/29/19 24 Active benzonatate (Tessalon Perles) 100 MG capsuleIndicati ons:Acute URI Take 1 capsule (100 mg) by mouth if needed in the morning, at noon, and at bedtime for cough. Do not crush or chew. 20 capsule 12/24/19 24 12/23/ 025 Active amLODIPine (Norvasc) 10 MG tablet TAKE 1 TABLET BY MOUTH EVERY DAY 90 tablet 01/12/20 24 Active albuterol (Ventolin HFA) 108 (90 Base) MCG/ACT inhaler INHALE 2 PUFFS INTO THE LUNGS EVERY 4 TO 6 HOURS NEEDED 18 g 01/12/20 24 Active methocarbamol (Robaxin) 750 MG tablet Take 1 tablet (750 mg) by mouth 4 times daily for 10 days. 40 tablet 01/18/20 24 Active meloxicam (Mobic) 15 MG tablet Take 1 tablet (15 mg) by mouth Once per day. 30 tablet 11 02/01/20 24 025 Active cetirizine (ZyrTEC) 10 MG tablet TAKE 1 TABLET BY MOUTH EVERY DAY NEEDED FOR ALLERGIES 90 tablet 2 02/05/20 24 Active triamcinolone (Kenalog) 0.1 % ointment APPLY TOPICALLY TWICE DAILY X 1 WEEK TO RASH ON RIGHT FOOT 15 g 04/06/20 24 Active acetaminophen (Tylenol) 500 MG tablet Take 2 tablets (1,000 mg) by mouth every 6 (six) hours if needed for moderate pain or fever for up to 25 doses. 30 tablet 04/06/20 24 Active Vit-Fe Fumarate-FA ( Vitamins) 28-0.8 MG tablet TAKE 1 TABLET BY MOUTH DAILY 90 tablet 04/28/20 24 Active hydroCHLOROthia zide (HYDRODiuril) 25 MG tabletIndicatio ns:Essential hypertension TAKE 1 TABLET(25 MG) BY MOUTH IN THE MORNING 90 tablet 3 05/27/20 24 Active capsaicin (Zostrix) 0.025 % creamIndication s:Chronic pain of right thumb Apply topically 2 times daily. 56.6 g 06/02/20 24 025 Active omeprazole (PriLOSEC) [address] capsuleIndicati ons:Gastroesoph ageal reflux disease without esophagitis TAKE 1 CAPSULE BY MOUTH EVERY DAY BEFORE A MEAL 90 capsule 07/04/20 24 Active propranolol LA (Inderal LA) 60 MG 24 hr capsule Take 1 capsule (60 mg) by mouth Once per day. Do not crush, chew, or split. 30 capsule 11 07/04/20 24 025 Active Semaglutide-Martin ght Management 2.4 MG/0.75ML solution auto-injector Inject 0.75 mL (2.4 mg) under the skin 1 (one) time per week. 2 mL 1 07/28/19 25 Active Tirzepatide-Martin ght Management (Zepbound) 5 MG/0.5ML solution Inject 5 mg under the skin 1 (one) time per week. 3 mL 08/09/19 25 Active amphetamine-dex troamphetamine (Adderall) 10 MG tablet Take 1 tablet (10 mg) by mouth 2 times daily for 10 days. 20 tablet 08/18/19 25 Active amphetamine-dex troamphetamine (Adderall) 10 MG tablet Take 1 tablet (10 mg) by mouth 2 times daily. 20 tablet 08/26/19 25 Active amphetamine-dex troamphetamine (Adderall) 10 MG tablet Take 10 mg by mouth 2 times daily. 025 Discontinued(Re order (will not trigger notification to Pharmacy)) amphetamine-dex troamphetamine (Adderall) 10 MG tablet Take 1 tablet (10 mg) by mouth 2 times daily for 10 days. 20 tablet 03/30/20 24 025 Discontinued(Re order (will not trigger notification to Pharmacy)) Active Problems Problem Noted Date Diagnosed Date Class 3 severe obesity due t o excess calories with serious comorbidity and body mass index (BMI) of 45.0 to 49.9 in adult 02/01/2024 Assessment & Plan (04/04/2024 2:51 PM EDT): Tolerated dose, will increase it to 0.5mg, weekly, has lost about 10ls, follow up in 2 months Assessment & Plan (02/01/2024 2:17 PM EDT): Will start on wegovy, risk vs benefits discussed, side effects discussed, will follow up in 6 weeks Hearing impairment 01/14/2024 Sprain of left ankle 08/08/2023 Assessment & Plan (08/08/2023 11:19 AM EST): No swelling, no erythema, she is able to stand but is tender, will order a left ankle xray for further evaluation, told to rest, apply ice. Tear of medial meniscus of left knee, current Overview (07/27/2023): ? ? MRI left knee October 2022 demonstrated inner margin radial tear of medial meniscus anterior horn measuring 0.8cm in ML dimension and involving approx 40% of the meniscal thickness. Also noted possible grade 1 sprain of MCL. Mild patellofemoral OA, small joint effusion and trace Howell's cyst. ? ? Evaluated by ortho, and reports cheduled for surgery with Dr. Puga at [facility] on 08/14/23. Assessment & Plan (07/27/2023 4:20 PM EST): -Continues with brace for stability PRN, and OTC analgesics w/o sufficient relief -Plan: 1. Trial celebrex 200mg PO BID PRN. Encouraged to take with food. Reviewed med safety and SE. 2. If not efficacious, may trial short course of Tramadol 50mg BID PRN severe pain (10 tablets). Reviewed med safety and SE. Pt not opioid naive -Follow up with [facility] Ortho as scheduled -Cont with symptomatic management -Return precautions reviewed Right foot pain 06/04/2023 Assessment & Plan (06/04/2023 12:33 PM EST): Pain mostly on her tips and base of toes, she has tried using sneakers with inserts but pain has not improved, will refer to podiatry for eval Meniere's disease of both ears 06/04/2023 Assessment & Plan (06/04/2023 12:35 PM EST): Will restart hydrochlorothiazide, she used to take it with good results, told to monitor bp Subacute maxillary sinusitis 04/08/2023 Assessment & Plan (04/08/2023 12:29 PM EDT): Patient present with hx of 2 days of chills, rhinorrhea, maxillary pain, cough. Tested negative for covid and flu. Will start on doxycycline due to hx of allergies. Continue nasal spray, stay well hydrated Screening mammogram for breast cancer 03/09/2023 Acute pain of left knee 11/24/2022 Assessment & Plan (08/08/2023 11:18 AM EST): Patient with acute over chronic knee pain, no redness but it is swollen, will prescribe oxycodone for pain, denied trauma, told to elevate extremity, rest, apply ice, she will follow up with ortho Assessment & Plan (04/21/2023 1:28 PM EDT): Patient twisted her left knee this morning, she is scheduled ofr left knee surgery on jamuary, refers able to bear weight, but it tender/mildly swollen, will provide oxycodine for 5 day, told to rest/apply ice, call back if not improving in 5 days Assessment & Plan (11/24/2022 10:12 AM EDT): Luciana had MRI with medial meniscus tear, mcl sprain, bilateral patellar maltracking and chrondromalasia, she saw ortho that recommended PT, they were also going to prescribe her a new brace, patient was pescribed naproxen which has not been helpful, will start PT today, she is not interested in tramadol for now, but in case her pain >7/10 I can send her a trial. 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 Assessment & Plan (11/30/2023 8:12 PM EDT): Controlled, at home has remained below 140/90, continue low sodium diet and exercise as tolerated, follow up in 4 months Assessment & Plan (07/27/2023 4:22 PM EST): -Elevated today in office, possibly in setting of pain -Continues with the following med regimen: ?? Amlodipine 10mg daily ?? hydrochlorothiazide 25mg daily -Cont low sodium diet and home BP monitoring -Follow up with PCP as scheduled, sooner as needed Assessment & Plan (06/04/2023 12:31 PM EST): Controlled, reinforced low sodium diet, continue bp monitoring Thyroid condition 10/13/2022 Routine screening for STI (sexually transmitted infection) 10/13/2022 Sore throat 09/01/2022 Assessment & Plan (09/01/2022 2:37 PM EST): Symptoms started this morning, no fever/chills, nausea/vomiting, covid and strep test were negative, on examination no tonsilar exudates, seems to be post nasal drip related, will order flonase Post-nasal drip 09/01/2022 Acute left-sided thoracic back pain 09/01/2022 Assessment & Plan (09/01/2022 2:38 PM EST): Thoracic back pain started about 1 week ago, denied heavy lifting, will provide lidocaine/prilocaine, rest and apply ice/heat pads Lumbar back pain 08/27/2022 Assessment & Plan (03/09/2023 10:08 PM EDT): Patient injured her back yesterday, no neurologic deficit, will order prednisone for 3 days, in case of no improvement in symptoms. Assessment & Plan (08/27/2022 1:21 PM EST): Patient underwent spinal fusion about 3 weeks ago, refers symptoms have improved greatly, follow up with neurosurgeon. Disorder of sacrum 12/10/2021 Iron deficiency anemia 11/24/2019 Assessment & Plan (06/21/2024 1:32 PM EST): Patient received iron infusion on October of this year, will order new labs, if positive will send back to hematology for infusion, she has gastric sleeve and does not tolerate oral iron replacement Obesity with body mass index 30 or greater 04/20 Overview (10/30/2022): Problem added by Discern Expert Assessment & Plan (07/04/2024 2:13 PM EST): Patietient has lost over 40lbs, continue wegovy, diet and exercise encouraged PCOS (polycystic ovarian syndrome) 04/02/2018 Bipolar disorder in remission 04/02/2018 Leukocytosis 04/02/2018 Mild intermittent asthma 04/02/2018 Obstructive sleep apnea syndrome 04/02/2018 Pseudoseizures 04/02/2018 Overview (04/26/2023): Replace inactive dx PVCs (premature ventricular contractions) 2017 Encounters Date Type Department Care Team Description 09/02/2024 Refill [facility] [address] [place] [address] Porfirio Goodman MD 08/26/2024 Refill [facility] [address] [place] [address] Porfirio Goodman MD 08/25/2024 Orders Only [facility] [address] [place] [phone] ProviderRussell MD 08/18/2024 Orders Only [facility] [address] [place] [address] Porfirio Goodman MD 08/16/2024 Telephone [facility] [address] [place] [address] Porfirio Goodman MD Walk-In 08/09/2024 Orders Only [facility] [address] [place] [address] Porfirio Goodman MD 08/09/2024 Telephone [facility] [address] [place] [address] Porfirio Goodman MD Prior Authorization 08/03/2024 Telephone [facility] [address] [place] [address] Porfirio Goodman MD Med Refill 08/02/2024 Telephone [facility] [address] [place] [address] Profirio Goodman MD Medication Question 07/28/2024 Orders Only [facility] [address] [place] [address] Melody Mancia MD 07/04/2024 10:30 AM EST Office Visit [facility] [address] [place] [address] Porfirio Goodman MD Prolonged QT syndrome (Primary Dx); Dietary counseling; Exercise counseling; Obesity with body mass index 30 or greater 07/04/2024 Travel 07/02/2024 Refill [facility] [address] [place] [address] Porfirio Goodman MD Gastroesophageal reflux disease without esophagitis 06/30/[address] [address] Porfirio Goodman MD ER Follow-up 06/27/2024 Refill [facility] [address] [place] [address] Porfirio Goodman MD 06/27/[address] [address] Porfirio Goodman MD Results 06/26/2024 Refill [facility] [address] [place] [address] Porfirio Goodman MD 06/22/2024 Orders Only [facility] [address] [place] [address] Porfirio Goodman MD 06/21/2024 1:00 PM EST Telemedicine [facility] [address] [place] [phone] Porfirio Goodman MD Iron deficiency anemia secondary to inadequate dietary iron intake (Primary Dx) 06/21/2024 Travel 06/21/[address] [address] Porfirio Goodman MD Nurse Triage 06/15/[address] [address] Porfirio Goodman MD Nurse Triage 06/07/2024 Telephone [facility] [address] [place] [address] Emilie Ramsey RN Results from Last 3 Months Immunizations Name Administration Dates Next Due Influenza, IIV3, injectable 05/14/2018 Influenza, Split (incl. purified surface antigen ) 04/15/2013,04/05/2012 Pneumococcal Polysaccharide PPSV23 08/01/2009 TD (adult), 2 Lf tetanus tox oid, preservative free, adsorbed 01/14/2018 Tdap 04/26/2018,10/22/2010 Social History Tobacco Use Types Packs/Day Years Used Date Smoking Tobacco: Never Passive Smoke Exposure: Never Smokeless Tobacco: Never Tobacco Cessation:Counseling Given: Not Answered Alcohol Use Standard Drinks/Week Comments Never 0 [...] the past 12 months, has t he [employer], gas, oil or water company threatened to [...] Orientation Straight 05/26/2022 10 :15 AM EDT Last Filed Vital Signs Vital Sign Reading Time Taken Comments Blood Pressure 142/84 07/04/2024 10:46 AM EST Pulse 68 07/04/2024 10:46 AM EST Temperature 37.1 ??C (98.7 ??F) 07/04/2024 10:[address] Respiratory Rate 16 07/04/2024 10:46 AM EST Oxygen Saturation 96% 06/02/2024 11:13 AM EST Inhaled Oxygen Concentration - - Weight 98.4 kg (217 lb) 07/04/2024 10:46 AM EST Height 157.5 cm (5' 2 ) 07/04/2024 10:46 AM EST Body Mass Index 39.69 07/04/2024 10:46 AM EST Plan of Treatment Health Maintenance Due Date Last Done Comments CT Colonography 1975 Colonoscopy 1975 Colorectal Cancer Screening 1975 FIT DNA/Cologuard 1975 FIT 1975 FOBT 1975 Sigmoidoscopy 1975 Alcohol/Substance Use Screening 1987 Family Planning (PISQ) 1990 Hepatitis B Vaccines (1 of 3 - 19+ 3-dose series) 1994 Pneumococcal Vaccine: Pediatrics (0 to 5 Years) and At-Risk Patients (6 to 49) Years) (2 of 2 - PCV) 08/01/2010 08/01/2009 Depression Screening 08/27/2023 08/27/2022, 08/27/2022 Cervical Cancer Screening 10/29/2023 HPV/Cotest 10/29/2023 10/28/2018 Pap Smear 10/29/2023 10/28/2018 COVID-19 Vaccine (1 - 2023-2 5 season) 2024 Influenza Vaccine (#1) 2024 8, 04/15/2013, 04/05/2012 SDOH Screening 01/31/2025 02/01/2024 Zoster Vaccines (1 of 2) 2025 Tobacco Screening 04/06/2025 04/06/2024 Mammogram 05/04/2026 05/04/2024 Lipid Panel 10/14/2027 10/13/2022, 02/06/2022 DTaP/Tdap/Td Vaccines (4 - T d or Tdap) 04/26/2028 04/26/2018, 01/14/2018, 10/22/2010 RSV Patients and Patients Aged 60 years or older (1 - 1-dose 75+ series) 2050 HIV Screening Completed 10/13/2022, 02/06/2022 Hepatitis C Screening Completed 10/13/2022 , 02/06/2022 HIB Vaccines Aged Out No longer eligi ble based on patient's age to complete this topic HPV Vaccines Aged Out No longer eligi ble based on patient's age to complete this topic Hepatitis A Vaccines Aged Out No long er eligible based on patient's age to complete this topic IPV Vaccines Aged Out No longer eligi ble based on patient's age to complete this topic Meningococcal Vaccine Aged Out No tiara paulina eligible based on patient's age to complete this topic RSV under 20 months Aged Out No longe r eligible based on patient's age to complete this topic Rotavirus Vaccines Aged Out No longer eligible based on patient's age to complete this topic Procedures Procedure Name Priority Date/Time Associated Diagnosis Comments ECG 12-LEAD Routine 07/04/2024 2:15 PM EST Prolonged QT syndrome XR KNEE 4+ VIEWS LEFT Routine 06/29/2024 9:10 AM EST T4, FREE Routine 06/22/2024 9:35 AM EST TSH W/REFLEX TO FT4 Routine 06/22/2024 9 :35 AM EST Iron deficiency anemia secondary to inadequate dietary iron intake VITAMIN B12/FOLATE, SERUM PANEL Routine 06/22/2024 9:35 AM EST Iron deficiency anemia secondary to inadequate dietary iron intake IRON AND TOTAL IRON BINDING CAPACITY Routine 06/22/2024 9:35 AM EST Iron deficiency anemia secondary to inadequate dietary iron intake CBC WITH AUTO DIFFERENTIAL Routine 06/22/2024 9:35 AM EST Iron deficiency anemia secondary to inadequate dietary iron intake XR LUMBAR SPINE COMPLETE 4+ VIEWS Routine 06/10/2024 11:39 AM EST XR PELVIS 3+ VIEWS Routine 06/10/2024 11 :39 AM EST MAMMOGRAPHY Routine 05/04/2024 10:27 AM EDT HEPATITIS PANEL, GENERAL Routine 10/13/2022 11:02 AM EDT Routine screening for STI (sexually transmitted infection) HIV 1 RNA, QN PCR W/RFL ELLY (RTI,PI,INTEGRASE) Routine 10/13/2022 11:02 AM EDT Routine screening for STI (sexually transmitted infection) LIPID PANEL, STANDARD Routine 10/13/2022 11:02 AM EDT Routine general medical examination at a health care facility PAP/HPV Routine 10/28/2018 from Last 3 Months or Most Recently Relevant to Health Maintenance Results * ECG 12 lead (07/04/2024 2:15 PM EST) Narrative Porfirio Goodman MD - 07/04/2024 2:15 PM EST Qtc 483 HR86 Sinus rhythm us Porfirio Flowers MD ECG ORDERABLES Fi nal Result * XR Knee 4+ Views Left (06/29/2024 9:10 AM EST) Anatomical Region Laterality Modality Lower Extremities, Knee Left Radiogra phic Imaging 06/29/2024 9:10 AM EST Narrative 06/29/2024 12:51 PM EST ? [facility] ?[address] ?[place] [address] ?XRay Report ? Signed ? Patient: Yrn,Elyzabeth A ?MR#: ?? [id number] ? : 1975 ?Acct:[id number] ? Age/Sex: 49 / F ?ADM Date: 12/04/24 ? Loc: HO.ED ? Attending Dr: ? Ordering Physician: Nicolas Lester MD ?? Date of Service: 06/29/24 ?? Procedure(s): XR knee LT 4V ?? Accession Number(s): [id number] ? cc: Porfirio Goodman MD; Nicolas Lester MD ? EXAMINATION: ?? XR KNEE, LEFT ? CLINICAL INFORMATION: ?? pain ? COMPARISON: ?? 04/16/2023 ? TECHNIQUE: ?? Four views of the left knee. ? FINDINGS: ?? Mild osteopenia but no joint effusion, fracture, dislocation or ?? destructive process. Mild patellofemoral degenerative change is noted ?? and is stable. ? XR/XR knee LT 4V ?? IMPRESSION: ?? No acute findings. ? Electronically signed by: ??Lawrence Pablo MD ??06/29/2024 12:49 PM EST RP ? Dictated By: ?Lawrence Pablo MD ? Signed By: ?<Electronically signed by Lawrence Pablo MD in OV> ?06/29/24 1249 ? DD/ 0910 ? TD/TT: 06/29/[address]24 ? Mate Fourth: ? Procedure Note Mary Gonzalez - 06/29/[address] [address] XRay Report Signed Patient: Kyle Pool AMR#: [id number] : 1975Acct:[id number] Age/Sex: 49 / FADM Date: 06/29/24 Loc: HO.ED Attending Dr: Ordering Physician: Nicolas Lester MD Date of Service: 06/29/24 Procedure(s): XR knee LT 4V Accession Number(s): [id number] cc: Porfirio Goodman MD; Nicolas Lester MD EXAMINATION: XR KNEE, LEFT CLINICAL INFORMATION: pain COMPARISON: 04/16/2023 TECHNIQUE: Four views of the left knee. FINDINGS: Mild osteopenia but no joint effusion, fracture, dislocation or destructive process. Mild patellofemoral degenerative change is noted and is stable. XR/XR knee LT 4V IMPRESSION: No acute findings. Electronically signed by: Lawrence Pablo MD 06/29/2024 12:49 PM EST Dictated By: Lawrence Pablo MD Signed By: <Electronically signed by Lawrence Pablo MD in OV> 06/29/24 1249 DD/ 9 TD/TT: 06/29/24924 Mate Fourth: [facility] External Provider IMG XR PROCEDURES Edited Result - Final * Vitamin B12 (Cobalamin) and Folate Panel, Serum (06/22/2024 9:35 AM EST) Vitamin B12 340 200 - 900 pg/mL [facility] Comment:NORMAL 200-900 PG/ML INDETERMINATE 160-199 PG/ML DEFICIENT < 160 PG/ML Folate 8.3 > or = 4.0 ng/mL [facility] Comment:Reference Values:> o r = 4.0 ng/mL< 4.0 ng/mL suggests folate deficiency Methotrexate, aminopterin and folinic acid(leucovorin) are chemotherapeutic agents whose molecularstructures are similar to folate; therefore, the Architectfolate assay cannot be used for patients using these drugs. Blood Venous blood specimen / Unknown 06/22/2024 9:35 AM EST 06/22/2024 2:18 PM EST Porfirio Flowers MD LAB BLOOD ORDERABL ES Final Result Performing Organization Address [facility] Co de Phone Number [facility] [address] [place] [address] [phone] * (ABNORMAL) TSH W/Reflex to FT4 (06/22/2024 9:35 AM EST) TSH reflex Free T4 0.21(L) 0.32 - 4.0 uIU/mL [facility] Blood Venous blood specimen / Unknown 06/22/2024 9:35 AM EST 06/22/2024 2:18 PM EST Porfirio Flowers MD LAB BLOOD ORDERABL ES Final Result Performing Organization Address City/[facility]/ZIP Co de Phone Number [facility] [address] [place] [address] [phone] * (ABNORMAL) CBC auto differential (06/22/2024 9:35 AM EST) White Blood Count 9.6 4.8 - 10.8 X10*3/uL [facility] Red Blood Count 4.80 4.20 - 5.50 X10*6/uL [facility] Hemoglobin 12.2 12.0 - 16.0 g/dl [facility] Hematocrit 38.4 37.0 - 47.0 % [facility] Mean Corpuscular Volume 80.0 80.0 - 98.0 fL [facility] Mean Corpuscular Hemoglobin 25.4(L) 27.0 - 33.0 pg [facility] Mean Corpuscular HGB Conc 31.8 31.0 - 35.0 g/dl [facility] Red Cell Distribution Width 14.1 11.0 - 16.0 % [facility] Platelet Count 405(H) 160 - 400 X10*3/uL [facility] Mean Platelet Volume 9.4 9.4 - 12.3 fL [facility] Neutrophils Percent Auto 73.6(H) 45 - 73 % [facility] Imm Gran Pct Auto 0.3 0.0 - 0.4 % [facility] Lymphocytes Percent Auto 18.7(L) 20 - 40 % [facility] Monocytes Percent Auto 5.1 2 - 11 % [facility] Eosinophils Percent Auto 1.7 0 - 4 % [facility] Basophils Percent Auto 0.6 0 - 2 % [facility] NRBC Pct Auto 0.0 0.0 - 0.2 /100WBC [facility] Neutrophils Absolute Auto 7.1 2.0 - 8.3 x10*3/uL [facility] Imm Gran Abs Auto 0.03 0.00 - 0.03 X10*3/uL [facility] Lymphocytes Absolute Auto 1.8 1.2 - 4.9 X10*3/uL [facility] Monocytes Absolute Auto 0.5 0.1 - 1.2 X10*3/uL [facility] Eosinophils Absolute Auto 0.2 0.0 - 0.4 X10*3/uL [facility] Basophils Absolute Auto 0.1 0.0 - 0.2 X10*3/uL [facility] NRBC Abs Auto 0.000 0.0 - 0.012 X10*3/uL [facility] Blood Venous blood specimen / Unknown 06/22/2024 9:35 AM EST 06/22/2024 2:18 PM EST Porfirio Flowers MD LAB BLOOD ORDERABL ES Final Result Performing Organization Address [facility] Co de Phone Number [facility] [address] [place] [phone] * Iron And Total Iron Binding Capacity (06/22/2024 9:35 AM EST) Iron 52 30 - 160 mcg/dL [facility] Total Iron Binding Capacity 240 228 - 428 mcg/dL [facility] Percent Iron Saturation 22 15 - 50 % [facility] Unsaturated Iron Binding 188 ug/dL [facility] Blood Venous blood specimen / Unknown 06/22/2024 9:35 AM EST 06/22/2024 2:18 PM EST Porfirio Flowers MD LAB BLOOD ORDERABL ES Final Result Performing Organization Address [facility] Co de Phone Number [facility] [address] [place] [phone] * T4, Free (06/22/2024 9:35 AM EST) Free T4 (Free Thyroxine) 1.02 0.71 - 1.85 ng/dL [facility] 06/22/2024 9:35 AM EST 06/22/2024 2:18 PM EST Porfirio Flowers MD LAB BLOOD ORDERABL ES Final Result Performing Organization Address City/[facility] Co de Phone Number [facility] [address] [place] [phone] * XR Pelvis 3+ Views (06/10/2024 11:39 AM EST) Anatomical Region Laterality Modality Body, Pelvis Radiographic Angelina ging 06/10/2024 11:3 9 AM EST Narrative 08/09/2024 9:38 AM EST ? [facility] ? [address] ?[place] [address] ?XRay Report ? Signed ? Patient: Yrn,Kyle A ?MR#: ?? [id number] ? : 1975 ?Acct:[id number] ? Age/Sex: 49 / F ?ADM Date: 06/10/24 ? Loc: HO.HOSX ? Attending Dr: Corey LOPEZ ? Ordering Physician: Corey Carmona ?? Date of Service: 06/10/24 ?? Procedure(s): XR pelvis min 3V ?? Accession Number(s): [id number] ? cc: Corey Carmona; Porfirio Goodman MD ? EXAMINATION: ?? XR PELVIS ? CLINICAL INFORMATION: ?? Dorsalgia, unspecified M54.9. ? COMPARISON: ?? X-ray pelvis 03/27/2023. ? TECHNIQUE: ?? AP view of the pelvis. ? FINDINGS: ?? Fusion hardware redemonstrated at the left sacroiliac joint without ?? evidence of hardware complication. Bilateral sacroiliac joint space ?? narrowing with marginal osteophytes, unchanged. No osseous erosion. No ?? evidence of femoral head avascular necrosis. No acute fracture or ?? dislocation. No abnormal soft tissue calcification. ? XR/XR pelvis min 3V ?? IMPRESSION: ?? 1. Oqkx-pc-damdrkol bilateral sacroiliac joint osteoarthritis, ?? unchanged. ? 2. Left sacroiliac joint fusion hardware without evidence of hardware ?? complication. ? Electronically signed by: ??Luis León MD ??08/09/2024 09:35 AM EST ?? RP ? Dictated By: ?Luis León MD ? Signed By: ?<Electronically signed by Luis León MD in OV> ?08/09/24 0935 ? DD/ 1139 ? TD/TT: 06/10/24 1145 ? Mate Fourth: SR ? Procedure Note Donotuseinterpreter, Image - 08/09/2024 [facility] [address] [place] [address] Drive [address] [place] [address] XRay Report Signed Patient: Kyle Pool AMR#: [id number] : 1975Acct:[id number] Age/Sex: 49 / FADM Date: 06/10/24 Loc: HO.HOSX Attending Dr: Corey LOPEZ Ordering Physician: Corey Carmona Date of Service: 06/10/24 Procedure(s): XR pelvis min 3V Accession Number(s): [id number] cc: Corey Carmona; Porfirio Goodman MD EXAMINATION: XR PELVIS CLINICAL INFORMATION: Dorsalgia, unspecified M54.9. COMPARISON: X-ray pelvis 03/27/2023. TECHNIQUE: AP view of the pelvis. FINDINGS: Fusion hardware redemonstrated at the left sacroiliac joint without evidence of hardware complication. Bilateral sacroiliac joint space narrowing with marginal osteophytes, unchanged. No osseous erosion. No evidence of femoral head avascular necrosis. No acute fracture or dislocation. No abnormal soft tissue calcification. XR/XR pelvis min 3V IMPRESSION: 1. Kpur-lv-qtkjuuxz bilateral sacroiliac joint osteoarthritis, unchanged. 2. Left sacroiliac joint fusion hardware without evidence of hardware complication. Electronically signed by: Luis León MD 08/09/2024 09:35 AM EST Dictated By: Luis León MD Signed By: <Electronically signed by Luis León MD in OV> 08/09/24 0935 DD/ 1139 TD/TT: 06/10/24 1145 Mate Fourth: SR [facility] External Provider IMG XR PROCEDURES Final Result * XR Lumbar Spine Complete 4+ Views (06/10/2024 11:39 AM EST) Anatomical Region Laterality Modality Spine, L-spine Radiographic Angelina ging 06/10/2024 11:3 9 AM EST Narrative 08/09/2024 9:38 AM EST ? [facility] ? [address] ?[place], [place] [address] ?XRay Report ? Signed ? Patient: Yrn,Elyzabeth A ?MR#: ?? [id number] ? : 1975 ?Acct:[id number] ? Age/Sex: 49 / F ?ADM Date: 06/10/24 ? Loc: HO.HOSX ? Attending Dr: Corey LOPEZ ? Ordering Physician: Corey Carmona ?? Date of Service: 06/10/24 ?? Procedure(s): XR lumbar spine 4V min ?? Accession Number(s): [id number] ? cc: Corey Carmona; Porfirio Goodman MD ? EXAMINATION: ?? XR LUMBAR SPINE ? CLINICAL INFORMATION: ?? Radiculopathy, lumbar region M54.16. ? COMPARISON: ?? X-ray lumbar spine 12/11/2023. ? TECHNIQUE: ?? 4 views of lumbar spine. ? FINDINGS: ?? The lumbar lordosis is maintained. Grade 1 anterolisthesis of L4 on L5 ?? measuring 0.4 cm in AP dimension and unchanged when compared to the ?? prior radiographs. No significant change in vertebral body alignment ?? with flexion or extension. No acute fracture. No loss of vertebral body ?? height. Mild multilevel loss of intervertebral disc height with tiny ?? endplate osteophytes, slightly progressed when compared to the prior ?? examination. No concerning lytic or blastic osseous lesion. Left upper ?? quadrant surgical sutures and tano. ? XR/XR lumbar spine 4V min ?? IMPRESSION: ?? 1. Grade 1 anterolisthesis of L4 on L5, unchanged. No significant ?? change in vertebral body alignment with flexion or extension. ? 2. Mild multilevel degenerative disc disease, slightly progressed when ?? compared to the prior examination. ? Electronically signed by: ??Luis León MD ??08/09/2024 09:35 AM EST ?? RP ? Dictated By: ?Luis León MD ? Signed By: ?<Electronically signed by Luis León MD in OV> ?08/09/24 0935 ? DD/ 1139 ? TD/TT: 06/10/24 1145 ? Mate Fourth: SR ? Procedure Note Donotuseinterpreter, Image - 08/09/2024 [facility] [address] [place] [address] Drive [address] [place] [address] XRay Report Signed Patient: Kyle Pool AMR#: [id number] : 1975Acct:[id number] Age/Sex: 49 / FADM Date: 06/10/24 Loc: HO.HOSX Attending Dr: Corey LOPEZ Ordering Physician: Corey Carmona Date of Service: 06/10/24 Procedure(s): XR lumbar spine 4V min Accession Number(s): [id number] cc: Corey Carmona; Porfirio Goodman MD EXAMINATION: XR LUMBAR SPINE CLINICAL INFORMATION: Radiculopathy, lumbar region M54.16. COMPARISON: X-ray lumbar spine 12/11/2023. TECHNIQUE: 4 views of lumbar spine. FINDINGS: The lumbar lordosis is maintained. Grade 1 anterolisthesis of L4 on L5 measuring 0.4 cm in AP dimension and unchanged when compared to the prior radiographs. No significant change in vertebral body alignment with flexion or extension. No acute fracture. No loss of vertebral body height. Mild multilevel loss of intervertebral disc height with tiny endplate osteophytes, slightly progressed when compared to the prior examination. No concerning lytic or blastic osseous lesion. Left upper quadrant surgical sutures and tano. XR/XR lumbar spine 4V min IMPRESSION: 1. Grade 1 anterolisthesis of L4 on L5, unchanged. No significant change in vertebral body alignment with flexion or extension. 2. Mild multilevel degenerative disc disease, slightly progressed when compared to the prior examination. Electronically signed by: Luis León MD 08/09/2024 09:35 AM EST Dictated By: Luis León MD Signed By: <Electronically signed by Luis León MD in OV> 08/09/24 0935 DD/ 1139 TD/TT: 06/10/24 1145 Mate Fourth: us [facility] External Provider IMG XR PROCEDURES Final Result * Hm Mammography (05/04/2024 10:27 AM EDT) Anatomical Region Laterality Modality Other Result [facility] Historical Provider HEALTH MAINTENANCE Final Result * HIV-1 RNA, Quantitative, Real-Time PCR with Reflex to Genotype (RTI, PI, Integrase) (10/13/2022 11:02 AM EDT) HIV 1 RNA, QN PCR NOT DETECTED copies/mL [facility], HIV 1 RNA, QN PCR NOT DETECTED Log copies/mL [facility], Comment: REFERENCE RANGE: NOT DETECTED copies/mL ?NOT DETECTED ??Log copies/mL This test was performed using Real-Time Polymerase Chain Reaction. Reportable range is 20 to 10,000,000 copies/mL (1.30-7.00 Log copies/mL). 10/13/2022 11:0 2 AM EDT 10/13/2022 11:[address] [facility] Meenakshi Dyson APPAREL CUTTER LAB BLOOD ORDERABLES Final Resu lt [facility] [address], [place] [address] [facility], [address] [place] [address] * Hepatitis Panel, General (10/13/2022 11:02 AM EDT) Hepatitis A Antibody Total NON-REACT PAUL NON-REACT PAUL [employer] [employer] Comment: For additional information, please refer to http://education.Gizmo.com/faq/LKM688 (This link is being provided for informational/ educational purposes only.) Hepatitis B Surface Antibody QL NON-REACT PAUL NON-REACT PAUL [employer] [employer] Hepatitis B Surface Ag NON-REACT PAUL NON-REACT PAUL [employer] [employer] Hepatitis B Core Antibody Total NON-REACT PAUL NON-REACT PAUL [employer] [place] [employer] Hepatitis C Antibody NON-REACT PAUL NON-REACT PAUL [employer] [employer] Index 0.05 <1.00 [employer] [place] [employer] Comment: HCV antibody was non-reactive. There is no laboratory evidence of HCV infection. In most cases, no further action is required. However, if recent HCV exposure is suspected, a test for HCV RNA (test code 47856) is suggested. For additional information please refer to http://FeedMagnet.Gizmo.com/faq/VRF35g5 (This link is being provided for informational/ educational purposes only.) 10/13/2022 11:0 2 AM EDT 10/13/2022 11:02 AM EDT Meenakshi Dyson [facility] LAB BLOOD ORDERABLES Final Resu lt [facility] [address], [place] [address] [employer] [place] [employer] [address] [place] [address] * (ABNORMAL) Lipid Panel, Standard (10/13/2022 11:02 AM EDT) Cholesterol, Total 190 <200 mg/dL [employer] [employer] HDL Cholesterol 52 > OR = 50 mg/dL [employer] [employer] Triglycerides 77 <150 mg/dL [employer] [employer] LDL Cholesterol 121(H) mg/dL (calc) [employer] [facility] [employer] Comment: Reference range: <100 Desirable range <100 mg/dL for primary prevention; ?? <70 mg/dL for patients with CHD or diabetic patients with > or = 2 CHD risk factors. LDL-C is now calculated using the Zeenat calculation, which is a validated novel method providing better accuracy than the Friedewald equation in the estimation of LDL-C. Ajay NINO et al. KEYONA. 2013;310(19): 9758-2551 (http://education.iMall.eu.[employer]/faq/INR469) Chol/HDLC Ratio 3.7 <5.0 (calc) [facility] Non-HDL Cholesterol 138(H) <130 mg/dL (calc) [facility] Comment: For patients with diabetes plus 1 major ASCVD risk factor, treating to a non-HDL-C goal of <100 mg/dL (LDL-C of <70 mg/dL) is considered a therapeutic option. Blood Venous blood specimen / Unknown 10/13/2022 11:02 AM EDT 10/13/2022 11:02 AM EDT Meenakshi Dyson [employer] LAB BLOOD ORDERABLES Final Resu lt [address], [place] [address] [employer] [place] [employer] [address] [place] [address] * Pap Smear (10/28/2018) Pap Negative for intraephithelial lesion or malignancy Negative for intraephithelial lesion or malignancy, Other HPV Undetected Undetected, Indeterminate, Quantitative, Not Detected Historical Provider HEALTH MAINTENANCE Final Result from Last 3 Months or Most Recently Relevant to Health Maintenance Insurance [facility] C3 Care Teams Ground Source Heat Pump Technician Relationship Specialty Start Date End Date Porfirio Goodman MD [address] [place] [phone] PCP - General Internal Medicine 12/05/19 Amber Mittal Jig WorkerVp Patient 04/20/24
--- OUTSIDE RECORDS SUMMARY | 2024-09-06 11:50 | XMS_ITS | Encounter Summary ---
Author Organization [employer] Address [address] [facility] [address], [place] [address] Care Team Providers Care Fur Joiner Name Role Phone Porfirio Goodman MD Primary Care Prov ider Reason for Visit * Reason Onset Date Comments Referral 04/19/2024 Encounter Details Date Type Department Care Team (Late st Contact Info) Description 04/19/2024 Telephone [facility] MEDICINE [address] [place] [address] Porfirio Goodman MD [address] [place] [address] Referral Social History Tobacco Use Types Packs/Day Years [...] encounter Miscellaneous Notes * Telephone Encounter - Dedra Rehman RN - 04/19/2024 11:49 AM EDT Noted pt. Referred to [facility] Medicine services of [facility] in Apr 2023 for home sleep study for dx R40.0 (ICD-10-CM) - Daytime somnolence R06.83 (ICD-10-CM) - Snoring Sleep study not performed ICP requesting new order so it can be performed. Please place new order if indicated * Telephone Encounter - Yunier Swartz - 04/19/2024 11:25 AM EDT Tc kole Clark at [facility] calling to request a new referral for sleep study due toprevious one being documented in this encounter Plan of Treatment Not on file documented as of this encounter Visit Diagnoses Not on filedocumented in this encounter Care Teams Fur Joiner Relationship Specialty Start Date End Date Porfirio Goodman MD [address] [place] [phone] PCP - General Internal Medicine 12/05/19 Amber Mittal Retail Associate Manager BilingualBlacksmith Helper 04/20/24 documented as of this encounter
--- OUTSIDE RECORDS SUMMARY | 2024-09-06 11:50 | XMS_ITS | Encounter Summary ---
Author Organization [employer] Address [address] [facility] 7 [place] [address] Care Team Providers Care Reeling Operator Name Role Phone Porfirio Goodman MD Primary Care Prov ider Reason for Visit * Reason Onset Date Comments Call Back Request 07/24/2023 Encounter Details Date Type Department Care Team ([facility] st Contact Info) Description 07/24/2023 Telephone [facility] CHC MED & PEDS [address] [place], [place] [phone] Porfirio Goodman MD [address] [place], [place] [phone] Call Back Request Social History Tobacco Use Types Packs/Day Years [...] encounter Miscellaneous Notes * Telephone Encounter - Harmony Talavera RN - 07/29/2023 3:58 PM EST Returned call to pt regarding POC. Pt states she has not taken the Celebrex and has been using the Tramadol with little effect. Pt advised to keep using the Tramadol PRN and return call to office if pt continues to not have good effect from med to discuss alternative options. Pt agrees with plan. * Telephone Encounter - DORA Ferris - 07/29/2023 3:34 PM EST Alternative option sent for pt during visit. Can hold on celebrex. * Telephone Encounter - Agustina Wiseman - 07/24/2023 3:17 PM EST Tc from pharmacy requesting to speak with a nurse in regards to celecoxib (CeleBREX) 200 MG capsule. States pt is allergic to sulfa and would like to know if provider wants to move forward. documented in this encounter Plan of Treatment Not on file documented as of this encounter Visit Diagnoses Not on filedocumented in this encounter Care Teams Reeling Operator Relationship Specialty Start Date End Date Porfirio Goodman MD [address] [place] [phone] PCP - General Internal Medicine 12/05/19 Amber Mittal Relationship MgrFish Cutting Machine Operator 04/20/24 documented as of this encounter
--- OUTSIDE RECORDS SUMMARY | 2024-09-06 11:50 | XMS_ITS | Encounter Summary ---
Author Organization [employer] Address 75 [facility] 7 [place] [address] Care Team Providers Care Audience Coordinator Name Role Phone Porfirio Goodman MD Primary Care Prov ider Reason for Visit * Reason Onset Date Comments Appointment Request 07/15/2023 Encounter Details Date Type Department Care Team ([facility] st Contact Info) Description 07/15/2023 Telephone [facility] MEDICINE [address] [place] [address] Porfirio Goodman MD [address] [place] [address] Appointment Request Social History Tobacco Use Types Packs/Day [...] encounter Miscellaneous Notes * Telephone Encounter - Mamie Goncalves - 07/15/2023 3:24 PM EST Tc from pt requesting a follow up appt with PCP pt stated PT facility have concerns with her low blood pressure. documented in this encounter Plan of Treatment Not on file documented as of this encounter Visit Diagnoses Not on filedocumented in this encounter Care Teams Audience Coordinator Relationship Specialty Start Date End Date Porfirio Goodman MD [address] [place] [phone] PCP - General Internal Medicine 12/05/19 Amber iMttal Platen Builder [facility] Social Worker 04/20/24 documented as of this encounter
--- OUTSIDE RECORDS SUMMARY | 2024-09-06 11:50 | XMS_ITS | Encounter Summary ---
Author Organization [employer] Address [address] [facility] 7 [place] [address] Care Team Providers Care Break Up Worker Name Role Phone Porfirio Goodman MD Primary Care Prov ider Reason for Visit * Reason Comments Med Refill Encounter Details Date Type Department Care Team ([facility] st Contact Info) Description 04/26/2024 Refill [facility] CH[facility] MED & PEDS [address] [place] [address] Porfirio Goodman MD [address] [place] [address] Social History Tobacco Use Types Packs/Day Years [...] on filedocumented in this encounter Care Teams Break Up Worker Relationship Specialty Start Date End Date Porfirio Goodman MD [address] [place] [address] PCP - General Internal Medicine 12/05/19 Amber Mittal Bandage MakerFront Office Help 04/20/24 documented as of this encounter
--- OUTSIDE RECORDS SUMMARY | 2024-09-06 11:50 | XMS_ITS | Encounter Summary ---
Author Organization [employer] Address [address] [facility] 7 [place] [address] Care Team Providers Care Electrical Instrument Repairer Name Role Phone Porfirio Goodman MD Primary Care Prov ider Reason for Visit * Reason Onset Date Comments Medication Question 05/30/2024 Encounter Details Date Type Department Care Team ([facility] st Contact Info) Description 05/30/2024 Telephone [facility] MEDICINE [address] [place] [address] Porfirio Goodman MD [address] [place] [address] Medication Question Social History Tobacco Use Types [...] encounter Miscellaneous Notes * Telephone Encounter - Leny Bates LPN - 05/30/2024 1:19 PM EST Please review message below * Telephone Encounter - Nigel Miller - 05/30/2024 12:06 PM EST Tc from [facility] addie lomeli stating script is unavailable for Vit-Fe Fumarate-FA ( Vitamins) 28-0.8 MG tablet and would like to know if PCP can switch script to a actually script instead of OTC script. Please contact at [phone] documented in this encounter Plan of Treatment Not on file documented as of this encounter Visit Diagnoses Not on filedocumented in this encounter Care Teams Electrical Instrument Repairer Relationship Specialty Start Date End Date Porfirio Goodman MD [address] [place] [phone] PCP - General Internal Medicine 12/05/19 Amber Mittal Operations LeaderMarine Insurance Claim Examiner 04/20/24 documented as of this encounter
--- OUTSIDE RECORDS SUMMARY | 2024-09-06 11:51 | XMS_ITS | Encounter Summary ---
Author Organization [employer] Address 75 [facility] 7 [place] [address] Care Team Providers Care Director Of Human Resources Name Role Phone Porfirio Goodman MD Primary Care Prov ider Reason for Visit * Reason Onset Date Comments Nurse Triage 04/27/2023 Encounter Details Date Type Department Care Team ([facility] st Contact Info) Description 04/27/2023 Telephone [facility] CHC MED & PEDS [address] [place], [place] [phone] Porfirio Goodman MD [address] [place], [place] [phone] Nurse Triage Social History Tobacco Use Types [...] Telephone Encounter - Myrtle Loyola RN - 04/27/2023 10:57 AM EDT Triage call Pt reports has had chest pain all weekend. Pt reports pain started 04/24/23 and decided to take it easy all weekend but, pain didn't go away. Pt reports pain as a sharp, stabbing pain on the right side of chest which come and goes with some tightness. No radiation to arm, jaw, neck, neg for light headedness, dizziness or difficulty breathing. Neg for cough, fever. Pt reports this has happened before associated with anxiety but, isn't sure that it is associated with that now. ASK apt [facility] 140pm 04/27/23 . Pt agrees with disposition . Protocol Used: Chest Pain (Adult) Protocol-Based Disposition: See in Office or Video Visit Today Video visit not offered Positive Triage Question: * All other patients with chest pain (Exception: Fleeting chest pain lasting a few seconds.) * All higher-acuity triage questions were negative Care Advice Discussed: * Reassurance and Education - Fleeting Chest Pains * Reasons To Call Back - Chest pain increases in frequency, duration or severity - Chest pain lasts over 5 minutes - Chest pains persist over 3 days - Difficulty breathing or unusual sweating occurs - Fever over 100.4 F (38.0 C) - You become worse * Telephone Encounter - Damian Britt - 04/27/2023 10:06 AM EDT Symptom: Chest Pain - Adult Outcome: Transfer to a nurse or provider NOW! Reason: Heaviness on chest The caller accepted this outcome Chest pain all weekend, pt states it felt like being stabbed. Please contact pt at [phone] documented in this encounter Plan of Treatment Not on file documented as of this encounter Visit Diagnoses Not on filedocumented in this encounter Care Teams Director Of Human Resources Relationship Specialty Start Date End Date Porfirio Goodman MD [address] [place] [phone] PCP - General Internal Medicine 12/05/19 Amber Mittal Casing CleanerMotor Vehicle Representative 04/20/24 documented as of this encounter
--- OUTSIDE RECORDS SUMMARY | 2024-09-06 11:51 | XMS_ITS | Encounter Summary ---
Author Organization [employer] Address [address] [address] Care Team Providers Care Squeegee Finisher Name Role Phone Porfirio Goodman MD Primary Care Prov ider Reason for Visit * Reason Comments Med Refill Encounter Details Date Type Department Care Team ([facility] st Contact Info) Description 03/17/2023 Refill [facility] MED & PEDS [address] [place] [address] Porfirio Goodman MD [address] [place] [address] Post-nasal drip Social History Tobacco Use Types [...] drip documented in this encounter Care Teams Squeegee Finisher Relationship Specialty Start Date End Date Porfirio Goodman MD [address] [place] [address] PCP - General Internal Medicine 12/05/19 Amber Mittal Registration OfficerCharge Nurse 04/20/24 documented as of this encounter
--- OUTSIDE RECORDS SUMMARY | 2024-09-06 11:51 | XMS_ITS | Clinical Summary ---
Author Organization [facility] Address [address] [place] [address] Care Team Providers Care Special Education Kindergarten Teacher Name Role Phone Porfirio Goodman Primary Care Provide r Surgical History Surgery Date Site/Laterality Comments OTHER SURGICAL HISTORY PROCEDURE: [place] SURGICAL ARTHROSCOPY LAURO W/CORACOACRM LIGM RLS; COMMENT: both shoulders GASTRIC BYPASS PROCEDURE: GASTRIC BYPASS FOR OBESIT; COMMENT: gastric sleeve OTHER SURGICAL HISTORY PROCEDURE: ANESTHESIA FOR SECTION OTHER SURGICAL HISTORY 08/08/2022 PROCEDURE: [place] ARTHRODESIS SI JOINT PERCUTANEOUS/MIN INVASIVE; COMMENT: Right SI joint fusion, Dr. Izaguirre Medical History Medical History Date Comments Asthma DX:Asthma Ulcer (traumatic) of oral mucosa DX:Ulcer (traumatic) of oral mucosa; COMMENT: ulcers (not known where) Anemia DX:Anemia History of joint problems DX:His tory of joint problems Family History Medical History Relation Name Comments COPD Father Diabetes Father Other: heart disease Father Alcohol abuse Mother Asthma Mother Bipolar disorder Mother Cervical cancer Mother Depression Mother Glaucoma Mother Hypertension Mother Other: ulcers Mother Thyroid disease Mother Relation Name Status Comments Father Alive Mother Alive Social History Tobacco Use Types Packs/Day Years Used Date Smoking Tobacco: Never Smokeless Tobacco: Never Alcohol Use Standard Drinks/Week Comments No 0 (1 standard drink = 0.6 oz pur e alcohol) Comments Unknown Sex and Gender Information Value Date Recorded Sex Assigned at Not on file Legal Sex Female 10:46 AM EST Gender Identity Not on file Sexual Orientation Not on file Obstetrics History Last Filed Vital Signs Vital Sign Reading Time Taken Comments Blood Pressure - - Pulse - - Temperature - - Respiratory Rate - - Oxygen Saturation - - Inhaled Oxygen Concentration - - Weight 118 kg (260 lb) 08/27/2023 2:23 PM EST Height 157.5 cm (5' 2 ) 08/27/2023 2:23 PM EST Body Mass Index 47.55 08/27/2023 2:23 PM EST Plan of Treatment Health Maintenance Due Date Last Done Comments Breast Cancer Screening 1975 Hepatitis B Vaccines (1 of 3 - 19+ 3-dose series) 1994 Pneumococcal Vaccine: Pediat rics (0 to 5 Years) and At-Risk Patients (6 to 64 Years) (1 of 2 - PCV) 1994 Cervical Cancer Screening: P ap Smear 1996 DTaP,Tdap,and Td Vaccines (2 - Td or Tdap) 05/24/2018 04/26/2018 Colorectal Cancer Screening: Colonoscopy 07/06/2022 Depression Screening 07/06/2022 HIV Screening 07/06/2022 Hepatitis C Screening 07/06/2022 Social Influencers of Health Screening 07/06/2022 COVID-19 Vaccine (2023-2 5 season) 2024 Influenza Vaccine (#1) 2024 05/14/2018 HIB Vaccines Aged Out No longer eligi [...] on patient's age to complete this topic MMR Vaccines Aged Out No longer eligi ble based on patient's age to complete this topic Meningococcal ACWY Vaccine Aged Out N o longer eligible based on patient's age to complete this topic Meningococcal B Vacine Aged Out No lo nger eligible based on patient's age to complete this topic RSV Immunization Patients Un adriana 20 months Aged Out No longer eligible b ased on patient's age to complete this topic Varicella Vaccines Aged Out No longer eligible based on patient's age to complete this topic Care Teams Special Education Kindergarten Teacher Relationship Specialty Start Date End Date Porfirio Goodman [address] [place], [place] PCP - General Internal Medicine 04/02/22
== END 2024-09-06 11:17 | disposition home or self-care (01) ==
PROVIDERS: PCP Internal Medicine; Visit Provider Physician Assistant Surgical
DX: E66.812 Obesity, class 2 (principal); Z68.38 Body mass index [BMI] 38.0-38.9, adult; Z90.3 Acquired absence of stomach [part of]; Z98.84 Bariatric surgery status
CPT/HCPCS: 99214

== ENCOUNTER → 2024-09-06 10:36 | Outpatient (BNVA) | payer MEDICAID, SELFPAY | PROVIDERS: PCP Internal Medicine; Visit Provider Physician Assistant Surgical | DX: E66.9 Obesity, unspecified (principal); Z98.84 Bariatric surgery status; Z68.38 Body mass index [BMI] 38.0-38.9, adult | CPT/HCPCS: 99212 ==

== ENCOUNTER 2024-12-10 14:04 | Emergency (ER) | payer MEDICAID, SELFPAY ==
--- NOTE | ~2024-12-10 | XR_ITS ---
CLINICAL HISTORY: fall, pain 2 view right tibia-fibula Comparison: None Findings There are surgical pins within the lateral malleolus. No acute fracture. No dislocation. No joint effusion. Very mild arthritic changes are present. IMPRESSION: No acute bony injury. This document has been electronically signed by: Luz Mitchell MD on 12/10/2024 15:37:36
--- NOTE | ~2024-12-10 | XR_ITS ---
CLINICAL HISTORY: fall, pain 3 view right foot Comparison: 09/19/2022 Findings: There are surgical pins within the lateral malleolus without evidence of hardware failure. No acute fracture. No dislocation. There are mild arthritic changes of the ankle. No significant arthritic change of the foot. Small calcaneal spur. No ankle effusion. No radiopaque foreign body. IMPRESSION: 1. No acute findings. This document has been electronically signed by: Luz Mitchell MD on 12/10/2024 15:40:12
--- NOTE | ~2024-12-10 | XR_ITS ---
CLINICAL HISTORY: fall, pain 2 view right ankle Comparison: CR - XR FOOT RT 2V - 12/10/24 14:49 EDT Findings: No acute fracture. No dislocation. There are 2 surgical pins within the lateral malleolus. No hardware failure. There are small chronic bone fragments adjacent to the medial malleolus. Very mild arthritic change. Tiny calcaneal spur. No ankle effusion. No radiopaque foreign body. IMPRESSION: 1. No acute findings. This document has been electronically signed by: Luz Mitchell MD on 12/10/2024 15:37:28
[2024-12-10 14:29] VITALS: BP 144/79; PULSE 85; RESP 18; TEMP 36.6; O2SAT 98; BMI 38.8
--- NOTE | 2024-12-10 14:31 | ED.LOWEXIN ---
HPI - Extremity Injury (Lower) General Chief Complaint: Extremity Injury, Lower Stated Complaint: Ankle/leg pain Time Seen by Provider: 12/10/24 15:18 Source: patient, RN notes reviewed and old records reviewed Mode of arrival: wheelchair Limitations: no limitations History of Present Illness ED Provider: Matt HPI Narrative: Patient is a 49-year-old female with history of fibromyalgia, asthma, PTSD, anxiety, anemia presenting to the emergency department with complaint of right lateral foot and ankle pain. States that on Thursday she tripped going down the stairs and inverted her ankle. Has had pain and swelling since. Today noted slight swelling and erythema to distal lower leg. Has been able to bear weight. Has used [id number]-ggxdive medications as well as ice. Related Data Home Medications ?Medication ?Instructions ?Recorded ?Confirmed cetirizine 10 mg capsule (All Day 10 mg PO DAILY PRN Allergy Symptoms 11/14/20 09/06/24 Allergy (cetirizine)) cholecalciferol (vitamin D3) 125 125 mcg PO DAILY 11/14/20 09/06/24 mcg (5,000 unit) capsule vitamin B complex (B 1 tab PO DAILY 11/14/20 09/06/24 Complex-Vitamin B12 tablet) albuterol sulfate 90 mcg/actuation 2 puff PO Q4-6H PRN Shortness Of 01/14/22 09/06/24 aerosol inhaler (ProAir HFA) Breath Or Wheezing omeprazole 20 mg capsule,delayed 20 mg PO DAILY 01/14/22 09/06/24 release amlodipine 10 mg tablet 10 mg PO DAILY 12/04/22 09/06/24 carvedilol 3.125 mg tablet 3.125 mg PO BID 12/04/22 09/06/24 fluticasone propionate 110 2 puff inhalation 12/04/22 09/06/24 mcg/actuation HFA aerosol inhaler (Flovent HFA) fluticasone propionate 50 1 - 2 spray intranasal QAM 12/04/22 09/06/24 mcg/actuation nasal spray,suspension polyethylene glycol 3350 17 17 g PO DAILY PRN Constipation 12/04/22 09/06/24 gram/dose oral powder (Miralax) iron dextran IV 12/23/22 09/06/24 diazepam 5 mg tablet (Valium) 5 mg PO TID PRN Anxiety 09/02/23 09/06/24 methocarbamol 750 mg tablet 750 mg PO QID 09/02/23 09/06/24 tirzepatide (weight loss) 2.5 2.5 mg subcut QWEEK 09/06/24 09/06/24 mg/0.5 mL subcutaneous pen injector (Zepbound) Previous Rx's ?Medication ?Instructions ?Recorded dicyclomine 20 mg tablet 20 mg PO QID PRN abdominal pain 06/16/20 #20 tabs docusate sodium 100 mg capsule 100 mg PO BID PRN Constipation #14 09/03/21 (Colace) caps ibuprofen 600 mg tablet 600 mg PO TID PRN pain #14 tabs 02/13/22 bisacodyl 5 mg tablet,delayed 10 mg (2 x 5 mg) PO BEDTIME #14 11/17/22 release tabs hydromorphone 2 mg tablet 1 mg (1/2 x 2 mg) PO Q12H 7 days 09/28/23 (Dilaudid) #7 tabs meloxicam 15 mg tablet 15 mg PO DAILY #30 tabs 10/12/23 tramadol 50 mg tablet 50 mg PO Q12H PRN pain #30 tabs 11/05/23 nitrofurantoin 100 mg PO Q12H 7 days #14 caps 03/07/24 monohydrate/macrocrystals 100 mg capsule (Macrobid) acetaminophen 650 mg 650 mg PO Q8H PRN pain #30 tabs 06/29/24 tablet,extended release (Tylenol 8 Hour) oxycodone 5 mg tablet 5 mg PO Q6H PRN severe pain (scale 06/29/24 score 7-10) #7 tabs Allergies Allergy/AdvReac Type Severity Reaction Status Date / Time amoxicillin Allergy Severe DIFFICULTY Verified 12/10/24 14:33 BREATHING clavulanic acid Allergy Severe DIFFICULTY Verified 12/10/24 14:33 BREATHNG nabumetone Allergy Severe Depression Verified 12/10/24 14:33 Penicillins Allergy Severe Shortness Verified 12/10/24 14:33 of Breath, itching sulfamethoxazole Allergy Severe DIFFICULTY Verified 12/10/24 14:33 BREATHING, anaphylaxis trimethoprim Allergy Severe DIFFICULTY Verified 12/10/24 14:33 BREATHING, anaphylaxis azithromycin Allergy Intermediate DIFFICULTY Verified 12/10/24 14:33 BREATHING hydrocodone Allergy Intermediate DIFFICULTY Verified 12/10/24 14:33 BREATHING levofloxacin Allergy Intermediate AGITATION-CAN Verified 12/10/24 14:33 TAKE IV, BUT NOT PO ondansetron [From Zofran] Allergy Intermediate r/t Verified 12/10/24 14:33 prolonged QT rizatriptan [RIZATRIPTAN] Allergy Intermediate HIVES Verified 06/29/24 09:08 diphenhydramine AdvReac Unknown told to Verified 06/29/24 09:08 [From BENADRYL] avoid From REGLAN Allergy Severe DYSPHORIA Uncoded 02/11/24 10:38 Review of Systems Review of Systems: As per HPI Yes all other systems are reviewed and are negative Constitutional: Constitutional: Reports as per HPI PMFSH Past Medical History Medical History Hx MRSA infection (~2019) Wears glasses Wears hearing aid in both ears Leukocytosis Ear piercing AL[place] DELIA (obstructive sleep apnea) Personal history of COVID-19 Renal cyst Anemia Prolonged QT interval Murmur, cardiac Thyroid condition Essential hypertension Sacroiliac joint dysfunction of right side Asthma PCOS (polycystic ovarian syndrome) Surgical History Hx of arthroscopy of left knee (09/04/23) S/P fusion of sacroiliac joint (12/23/22) History of S/P left knee arthroscopy Status post arthroscopy of shoulder H/O gastric sleeve History of ankle surgery History of laparoscopic partial gastrectomy Social History Social History Household Members: Spouse, Family and Children Housing: House Are you a primary before and after school daycare worker to a significant other at home: Yes (5 year old daughter) Do you presently have visiting nurse or other home services: No Alcohol intake: former Patient Tobacco Use Status: Never used Tobacco e-Cigarette/Vaping Use: Never Used Advance Directives: No Advance Directives Information Provided: Yes Do you have a plan to hurt others: No Plan Physical Exam Vital Signs: Vital Signs: Last Vital Signs Temp 98.6 F 12/10/24 15:28 Pulse 73 12/10/24 15:28 Resp 16 12/10/24 15:28 BP 143/86 H 12/10/24 15:28 Pulse Ox 99 12/10/24 15:28 O2 Del Method Room Air 12/10/24 15:28 BMI result Body Mass Index 38.8 Vital signs have been reviewed and appear to be correct. Blood pressure normal. Heart rate normal. Respiratory rate normal. Temperature normal. Oxygen saturation normal. Const: General: cooperative and no acute distress Orientation/consciousness: oriented to person, oriented to place, oriented to time and patient oriented x3 Limitations: no limitations HEENT: Head: Yes normocephalic and Yes atraumatic Ears: external ears normal General nose exam: Normal external nose present Face and sinus: Yes face symmetric Mouth: oropharynx normal and moist mucous membranes Throat: Yes uvula midline Eyes: Pupils: Equal, round and reactive pupils present Neck: Neck: Yes normal visual inspection and Yes supple Resp: Effort & Inspection: normal respiratory effort and able to speak in complete sentences Auscultation: clear to auscultation bilaterally Cardio: Rate: regular rate Rhythm: regular rhythm Heart sounds: S1 normal heart sound present and S2 normal heart sound present GI: Palpation (GI): Soft to palpation and nontender Auscultation: normoactive bowel sounds : General: Yes no CVA tenderness Back/Spine/Pelvis: Back: no CVA tenderness Skin: General skin exam: elasticity normal and turgor normal Neuro: General: oriented to person, oriented to place, oriented to time, patient oriented x3, moves all extremities, no focal motor deficits and CN's II-XI intact bilaterally Cranial nerves: Yes Equal, round and reactive pupils present Cognition (Neuro): normal cognition Extrem: General: Yes full ROM, Yes no pedal edema and Yes no calf tenderness Right lower extremity: lower leg Details: erythema Location: of the distal lower leg Location: anteriorly (slight with mild swelling), ankle Details: tenderness Location: of the lateral malleolus, swelling Details: laterally and normal ROM; achilles tendon exam normal and foot Details: normal capillary refill, tenderness Location: of the dorsal foot Location: laterally, toes with normal ROM, no edema and vascular exam Details: dorsalis pedis pulse present, posterior tibial pulse present and normal capillary refill Psych: Mental Status: mental status grossly normal Affect: normal affect Thought process: Normal thought process present Course Course Course Narrative: Prema Calero APRN 12/10/24, 1430 This is a rapid medical exam. deferred additional HPI, ROS, PE to primary provider. 49 yo female with a history of fibromyalgia, asthma, PTSD, anxiety, anemia here with complaints of right ankle/pain, redness/swelling after an mechanical fall which occurred yesterday, Will obtain x-rays. VSS Medical Decision Making Medical Decision Making [facility] Narrative: Patient is a 49-year-old female with history of fibromyalgia, asthma, PTSD, anxiety, anemia presenting to the emergency department with complaint of right lateral foot and ankle pain. On exam patient is awake, A+Ox3, VS WNL, afebrile, normal neurological exam without focal deficits, physical exam findings as above. Given reported symptoms and physical exam findings, initial differential includes but is not limited to ankle strain, sprain, fracture. Patient states she has been able to bear some weight on her ankle. X-rays of tibia/fibula, ankle, and foot notable for no evidence of acute fracture. My interpretation is in agreement with the radiologist's interpretation. Results discussed with patient and all questions answered. Patient provided with stirrup splint for support. Advised Tylenol, ibuprofen, ice, elevation. Follow up with PCP as needed. Return precautions discussed. Will provide information for Orthopedic office if patient experiences any ongoing symptoms. Patient verbalized understanding of and agreement with plan. Differential Diagnosis Differential Diagnoses: The differential diagnosis associated with the presentation includes As per [facility] Admission/Observation Consideration of admission/observation: Escalation of care including admission/observation considered Patient would have been admitted to the hospital had their work up had any findings where hospital admission was appropriate and their clinical presentation warranted hospital admission. Independent Interpretation I performed an independent interpretation of an: Plain X-Ray Interpretation: X-rays of tibia/fibula, ankle, and foot notable for no evidence of acute fracture. Radiology Impression Discussion of test interpretation with radiology: I have reviewed the radiologist's reading. Radiologist Impression: Findings: No acute fracture. No dislocation. There are 2 surgical pins within the lateral malleolus. No hardware failure. There are small chronic bone fragments adjacent to the medial malleolus. Very mild arthritic change. Tiny calcaneal spur. No ankle effusion. No radiopaque foreign body. Findings There are surgical pins within the lateral malleolus. No acute fracture. No dislocation. No joint effusion. Very mild arthritic changes are present. IMPRESSION: No acute bony injury. [address] [address] XRay Report Signed Patient: Kyle Pool MR#: [id number] : 1975 Acct:[id number] Age/Sex: 49 / F ADM Date: 12/10/24 Loc: HO.ED Attending Dr: Ordering Physician: Joana Calero NP Date of Service: 12/10/24 Procedure(s): XR foot RT 2V Accession Number(s): [id number] cc: Porfirio Goodman MD; Joana Calero NP~ CLINICAL HISTORY: fall, pain 3 view right foot Comparison: 09/19/2022 Findings: There are surgical pins within the lateral malleolus without evidence of hardware failure. No acute fracture. No dislocation. There are mild arthritic changes of the ankle. No significant arthritic change of the foot. Small calcaneal spur. No ankle effusion. No radiopaque foreign body. IMPRESSION: 1. No acute findings. External Record Review External record reviewed: Inpatient record, Office record and Outpatient record Discharge Plan Discharge Clinical Impression: Right ankle sprain Patient Disposition: Home, Self-Care Instructions: Ankle Sprain (DC), Ankle Stirrup Splint (ED), P.R.I.C.E. Treatment (ED) Additional Instructions: You have been evaluated in the emergency department today for ankle pain. Your evaluation did not find evidence of medical conditions requiring emergent intervention at this time. We have provided a splint for you to use while your ankle heals. Please rest, ice, and elevate your ankle, and resume normal activities as tolerated. We recommend you take 600mg ibuprofen every 6 hours or 650mg Tylenol every 6 hours as needed for pain. If needed you can alternate these medications as they take 1 medication every 3 hours. For instance at noon take ibuprofen, then at 3:00 p.m. take Tylenol, then at 6:00 p.m. take ibuprofen. Please schedule an appointment for follow-up with your primary care provider this week. Return to the emergency department if you experience worsening pain, numbness, tingling, or any other concerning symptoms. If symptoms do not improve over the next 1-2 weeks, call the orthopedic office for a follow up appointment. Prescriptions: No Action bisacodyl 5 mg tablet,delayed release (DR/EC) 10 mg PO BEDTIME Qty: 14 0RF hydromorphone [Dilaudid] 2 mg tablet 1 mg PO Q12H 7 Days Qty: 7 0RF Rx Instructions: Partial Fill upon patient request. meloxicam 15 mg tablet 15 mg PO DAILY Qty: 30 0RF tramadol 50 mg tablet 50 mg PO Q12H PRN (Reason: pain) Qty: 30 0RF dicyclomine 20 mg tablet 20 mg PO QID PRN (Reason: abdominal pain) Qty: 20 0RF docusate sodium [Colace] 100 mg capsule 100 mg PO BID PRN (Reason: Constipation) Qty: 14 0RF ibuprofen 600 mg tablet 600 mg PO TID PRN (Reason: pain) Qty: 14 0RF diazepam [Valium] 5 mg tablet 5 mg PO TID PRN (Reason: Anxiety) Rx Instructions: partial fill is okay methocarbamol 750 mg tablet 750 mg PO QID nitrofurantoin monohyd/m-cryst [Macrobid] 100 mg capsule 100 mg PO Q12H 7 Days Qty: 14 0RF Rx Instructions: must administer with a meal/food polyethylene glycol 3350 [Miralax] 17 gram/dose powder 17 g PO DAILY PRN (Reason: Constipation) carvedilol 3.125 mg tablet 3.125 mg PO BID amlodipine 10 mg tablet 10 mg PO DAILY fluticasone propionate 50 mcg/actuation spray,suspension 1 - 2 spray intranasal QAM fluticasone propionate [Flovent HFA] 110 mcg/actuation HFA aerosol inhaler 2 puff INHALATION iron dextran IV Patient Comments: last dose- last year acetaminophen [Tylenol 8 Hour] 650 mg tablet extended release 650 mg PO Q8H PRN (Reason: pain) Qty: 30 0RF oxycodone 5 mg tablet 5 mg PO Q6H PRN (Reason: severe pain (scale score 7-10)) Qty: 7 0RF Rx Instructions: Partial Fill upon patient request. vitamin B complex [B Complex-Vitamin B12] Tablet 1 tab PO DAILY cholecalciferol (vitamin D3) 125 mcg (5,000 unit) capsule 125 mcg PO DAILY All Day Allergy (cetirizine) 10 mg capsule 10 mg PO DAILY PRN (Reason: Allergy Symptoms) albuterol sulfate [ProAir HFA] 90 mcg/actuation HFA aerosol inhaler 2 puff PO Q4-6H PRN (Reason: Shortness Of Breath Or Wheezing) omeprazole 20 mg capsule,delayed release(DR/EC) 20 mg PO DAILY Zepbound 2.5 mg/0.5 mL pen injector 2.5 mg subcut QWEEK Rx Instructions: for 4 weeks [place] [facility] [place] Group] Print Language: Greenlandic
--- OUTSIDE RECORDS SUMMARY | 2024-12-10 15:27 | XMS_ITS | Encounter Summary ---
Author Organization [employer] Address [address] [facility] [address] [place] [address] Care Team Providers Care Airport Traffic Controller Name Role Phone Porfirio Goodman MD Primary Care Prov ider Reason for Visit * Reason Onset Date Comments Results 06/27/2024 Encounter Details Date Type Department Care Team ([facility] st Contact Info) Description 06/27/2024 Telephone [facility] MEDICINE [address] [place] [address] Porfirio Goodman MD [address] [place] [address] Results Social History Tobacco Use Types Packs/Day [...] results: Labs Date when done: 06/22/24 Facility: [facility] Labs documented in this encounter Plan of Treatment Upcoming Encounters Date Type Department Care Team (Late st Contact Info) Description 01/19/2025 8:30 AM EDT Telemedicine [facility] MED [facility] PEDS [address] [place] [address] Porfirio Goodman MD [address] [place] [address] documented as of this encounter Visit Diagnoses Not on filedocumented in this encounter Care Teams Airport Traffic Controller Relationship Specialty Start Date End Date Porfirio Goodman MD [address] [place] [address] PCP - General Internal Medicine 12/05/19 Amber Mittal Warehouse Distribution SpecialistSimulation Engineer 04/20/24 documented as of this encounter
--- OUTSIDE RECORDS SUMMARY | 2024-12-10 15:27 | XMS_ITS | Encounter Summary ---
Author Organization [employer] Address [address] [place] [address] [address] [address] Care Team Providers Care Maintenance Of Way Superintendent Name Role Phone Porfirio Goodman MD Primary Care Prov ider Encounter Details Date Type Department Care Team (Latest Contact Info) Description 09/09/2021 Abstract [facility] CONVERSION[facility] Dental, Provider, DDS Social History Tobacco Use Types Packs/Day Years Used Date Smoking Tobacco: Never Assessed Comments Unknown Sex and Gender Information Value Date Recorded Sex Assigned at Female 05/26/2022 10:15 AM EDT Legal Sex Female 10:15 AM EDT Gender Identity Female 05/26/2022 10:15 AM EDT Sexual Orientation Straight 05/26/2022 10 :15 AM EDT documented as of this encounter Plan of Treatment Upcoming Encounters Date Type Department Care Team (Late st Contact Info) Description 01/19/2025 8:30 AM EDT Telemedicine [facility] [address] [place] [address] Porfirio Goodman MD [address] [place] [address] documented as of this encounter Visit Diagnoses Not on filedocumented in this encounter Care Teams Maintenance Of Way Superintendent Relationship Specialty Start Date End Date Porfirio Goodman MD [address] [place] [address] PCP - General Internal Medicine 12/05/19 Amber Mittal Leadite WorkerBruise Trimmer 04/20/24 documented as of this encounter
--- OUTSIDE RECORDS SUMMARY | 2024-12-10 15:27 | XMS_ITS | Encounter Summary ---
Author Organization [employer] Address [address] [place] [address] [facility] [place] [address] Care Team Providers Care Shaft Repairer Name Role Phone Porfirio Goodman MD Primary Care Prov ider Reason for Referral * Consultation (Routine) - Closed Specialty Diagnoses / Procedures Referred By Lisbeth t Referred To Contact Physical Therapy Diagnoses Dizziness Leidy Morelos DO [address] [place] [address] Phone: tel: fax: [facility] Physical Therapy - [place] [address] [facility] [address] Phone: tel: fax: Referral ID Status Reason Start Date Expiration Date V isits Requested Visits Authorized [id number] Closed Specialty Services Required 12/08/2024 12/08/2025 20 20 * Imaging (Routine) - Authorized Specialty Diagnoses / Procedures Referred By Contac t Referred To Contact Radiology Diagnoses Dizziness Procedures MR Brain w/o Contrast Leidy Morelos DO [address] [place] [address] Phone: tel: fax: [facility] [address] [place] [address] Phone: tel: fax: Referral ID Status Reason Start Date Expiration Date V isits Requested Visits Authorized [id number] Authorized 12/08/2024 12/08/2025 1 1 Reason for Visit * Reason Comments Dizziness Encounter Details Date Type Department Care Team (Late st Contact Info) Description 12/08/2024 10:40 AM EDT Office Visit [facility] [address] [place] [address] Leidy Morelos DO [address] [place] [address] Dizziness (Primary Dx); Post-nasal drip Social History Tobacco Use Types [...] t he electric, gas, oil or water [place] threatened to shut off services in your [...] AM EDT documented as of this encounter Last Filed Vital Signs Vital Sign Reading Time Taken Comments Blood Pressure 125/87 12/08/2024 10:30 AM EDT Pulse 84 12/08/2024 10:30 AM EDT Temperature 36.4 ??C (97.6 ??F) 12/08/2024 10:30 AM E DT Respiratory Rate 16 12/08/2024 10:30 AM EDT Oxygen Saturation - - Inhaled Oxygen Concentration - - Weight - - Height - - Body Mass Index - - documented in this encounter Progress Notes * Leidy Tamy, DO - 12/08/2024 10:40 AM EDT SUBJECTIVE Kyle Pool is a 49 y.o. female who presents for Walk-In Visit. She presents to [place] today c/o dizziness x 2-3 weeks. She had televisit with PCP in [place] and was referred to PT for vertigo. She had f/u with market research associate last week and was sent for labs, which were nml. She was advised no need for IV iron. She says that she has a long h/o Meniere's and has always suffered from dizziness but her sx are getting worse. She says she has dizzy spells, which feel like a spinning sensation. She says that the dizziness can happen at any time but also occur with positional changes. She says she has multiple episodes/day, so many that she lost count. She says they tend to last around 20 seconds and self-resolve. She says she takes meclizine TID, but it has not been helping as much as previously. She says she went to PT a while back and they did a tilt-table test and her BP dropped, so they stopped seeing her and needs a new PT referral. She denies any ear pain or vision changes. She denies any palpitations or CP. She says she has upcoming appt with her ENT next mos for worsening tinnitus. She says she uses allergy medication and flonase every day but doesn't feel like the medication is helping. She follows with Dr. Lawrence at [facility] but has not seen him some time. History provided by: Patient pulmonary disease specialist used: No Dizziness Quality: Room spinning Severity: Severe Onset quality: Sudden Duration: 3 weeks Timing: Intermittent Progression: Worsening Chronicity: Recurrent Context: bending over, head movement, physical activity and standing up Context: not with eye movement and not with loss of consciousness Relieved by: Being still Associated symptoms: tinnitus Associated symptoms: no chest pain, no diarrhea, no headaches, no nausea, no palpitations, no shortness of breath, no syncope, no vision changes, no vomiting and no weakness Risk factors: Meniere's disease Review of Systems Constitutional: Negative for activity change, appetite change, chills, fever and unexpected weight change. HENT: Positive for tinnitus. Respiratory: Negative for cough and shortness of breath. Cardiovascular: Negative for chest pain, palpitations, leg swelling and syncope. Gastrointestinal: Negative for abdominal pain, diarrhea, nausea and vomiting. Neurological: Positive for dizziness. Negative for weakness and headaches. Patient Active Problem List Diagnosis Lumbar back pain Sore throat Post-nasal drip Acute left-sided thoracic back pain Essential hypertension Thyroid condition Routine screening for STI (sexually transmitted infection) PCOS (polycystic ovarian syndrome) Bipolar disorder in remission ([facility]) Disorder of sacrum Fibromyositis Gestational diabetes mellitus (GDM) Headache Iron deficiency anemia Leukocytosis Mild intermittent asthma MRSA (methicillin resistant staph aureus) culture positive Obesity with body mass index 30 or greater Obstructive sleep apnea syndrome Prolonged QT syndrome Pseudoseizures PVCs (premature ventricular contractions) Seasonal allergies Severe anemia Spondylosis, thoracic, without myelopathy Acute pain of left knee Screening mammogram for breast cancer Subacute maxillary sinusitis Right foot pain Meniere's disease of both ears Tear of medial meniscus of left knee, current Sprain of left ankle Hearing impairment Class 3 severe obesity due to excess calories with serious comorbidity and body mass index (BMI) of45.0 to 49.9 in adult Snoring Class 2 severe obesity due to excess calories with serious comorbidity and body mass index (BMI) of38.0 to 38.9 in adult ([facility]) Allergies Allergen Reactions Amoxicillin Anaphylaxis Azithromycin Anaphylaxis and Other Other reaction(s): unspecified azithromycin Hydrocodone Anaphylaxis Other reaction(s): Difficulty breathing, unspecified Trouble breathing Hydrocodone-Acetaminophen Shortness of breath Levofloxacin Anaphylaxis Other reaction(s): unspecified Penicillins Itching and Shortness of breath Other reaction(s): unspecified Sulfamethoxazole Anaphylaxis Other reaction(s): unspecified Sulfanilamide Anaphylaxis Sulfamethoxazole-Trimethoprim Other Other reaction(s): Swelling of throat, Throat Tightness Bactrim Amoxicillin-Pot Clavulanate Other reaction(s): Difficulty breathing Clavulanic Acid Other reaction(s): unspecified unknown Diphenhydramine Hydromorphone Other hydromorphone Metoclopramide Nabumetone Ondansetron Penicillin V Other penicillin V potassium Rizatriptan Sulfa Antibiotics Trimethoprim Other reaction(s): unspecified OBJECTIVE Visit Vitals BP 125/87 (BP Location: Right arm, Patient Position: Sitting, BP Cuff Size: Large adult) Pulse 84 Temp 97.6 ??F (36.4 ??C) (Oral) Resp 16 OB Status Having periods Smoking Status Never Physical Exam Constitutional: General: She is not in acute distress. Appearance: Normal appearance. HENT: Right Ear: Ear canal and external ear normal. A middle ear effusion is present. Left Ear: Tympanic membrane, ear canal and external ear normal. Nose: Congestion present. No rhinorrhea. Mouth/Throat: Pharynx: Posterior oropharyngeal erythema present. No oropharyngeal exudate. Eyes: Extraocular Movements: Extraocular movements intact. Conjunctiva/sclera: Conjunctivae normal. Pupils: Pupils are equal, round, and reactive to light. Cardiovascular: Rate and Rhythm: Normal rate and regular rhythm. Heart sounds: Normal heart sounds. No murmur heard. Pulmonary: Effort: Pulmonary effort is normal. Breath sounds: Normal breath sounds. No wheezing or rhonchi. Musculoskeletal: Cervical back: Neck supple. No tenderness. Lymphadenopathy: Cervical: No cervical adenopathy. Neurological: General: No focal deficit present. Mental Status: She is alert and oriented to person, place, and time. Cranial Nerves: Cranial nerves 2-12 are intact. Sensory: Sensation is intact. Motor: Motor function is intact. Coordination: Romberg sign positive. Uauqro-Gjjh-Tijeba Test normal. Gait: Gait abnormal. Psychiatric: Mood and Affect: Mood normal. Assessment/Plan Diagnoses and all orders for this visit: Dizziness Significant worsening of sx in the last mos -provided reassurance -referred for MRI brain -advised stay well-hydrated -advised change positions slowly -increase meclizine to 4 times a day -change zyrtec to sarah daily -increase flonase to BID -consider decrease BP meds -re-referred to PT -f/u with ENT as scheduled -encouraged schedule f/u with neurology -advised contact [facility] if sx change or worsen, she agrees with plans --Follow-up with PCP as scheduled or sooner prn-- Current Outpatient Medications: acetaminophen (Tylenol) 500 MG tablet, Take 2 tablets (1,000 mg) by mouth every 6 (six) hours if needed for moderate pain or fever for up to 25 doses., Disp: 30 tablet, Rfl: 0 amLODIPine (Norvasc) 10 MG tablet, TAKE 1 TABLET BY MOUTH EVERY DAY, Disp: 90 tablet, Rfl: 0 amphetamine-dextroamphetamine (Adderall) 10 MG tablet, Take 1 tablet (10 mg) by mouth 2 times daily., Disp: 60 tablet, Rfl: 0 B Complex Vitamins (vitamin B complex) tablet, Take 1 tablet by mouth in the morning., Disp: , Rfl: benzonatate (Tessalon Perles) 100 MG capsule, Take 1 capsule (100 mg) by mouth if needed in the morning, at noon, and at bedtime for cough. Do not crush or chew., Disp: 20 capsule, Rfl: 0 capsaicin (Zostrix) 0.025 % cream, Apply topically 2 times daily., Disp: 56.6 g, Rfl: 0 cholecalciferol (Vitamin D-3) 25 MCG (1000 UT) tablet, Take 1 tablet (25 mcg) by mouth in the morning., Disp: 60 tablet, Rfl: 11 diazePAM (Valium) 5 MG tablet, Take 5 mg by mouth if needed in the morning, at noon, and at bedtime., Disp: , Rfl: Diclofenac Sodium 1 % gel, To apply to the affected area 3 times a day, Disp: 100 g, Rfl: 0 famotidine (Pepcid) 20 MG tablet, Take 1 tablet (20 mg) by mouth 2 times daily., Disp: 60 tablet, Rfl: 11 fexofenadine (Sarah) 180 MG tablet, Take 1 tablet (180 mg) by mouth Once per day., Disp: 90 tablet, Rfl: 3 Flovent HFA 110 MCG/ACT inhaler, Inhale 2 puffs in the morning and at bedtime., Disp: 12 g, Rfl: 2 fluticasone (Flonase) 50 MCG/ACT nasal spray, Administer 2 sprays into each nostril Once per day. Shake gently. Before first use, prime pump. After use, clean tip and replace cap., Disp: 48 g, Rfl: 3 hydroCHLOROthiazide (HYDRODiuril) 25 MG tablet, TAKE 1 TABLET(25 MG) BY MOUTH IN THE MORNING, Disp:90 tablet, Rfl: 3 LORazepam (Ativan) 0.5 MG tablet, Take 0.25 mg by mouth., Disp: , Rfl: meclizine (Antivert) 25 MG tablet, Take 1 tablet (25 mg) by mouth if needed in the morning, at noon, in the evening, and at bedtime for dizziness., Disp: 60 tablet, Rfl: 1 meloxicam (Mobic) 15 MG tablet, Take 1 tablet (15 mg) by mouth Once per day., Disp: 30 tablet, Rfl:11 methocarbamol (Robaxin) 750 MG tablet, TAKE 1 TABLET BY MOUTH FOUR TIMES DAILY NEEDED, Disp: 60 tablet, Rfl: 3 omeprazole (PriLOSEC) [address] capsule, TAKE 1 CAPSULE BY MOUTH EVERY DAY BEFORE A MEAL, Disp: 90 capsule, Rfl: 0 polyethylene glycol, PEG, 3350 (Glycolax) 17 GM/SCOOP powder, TAKE 17 GRAMS BY MOUTH DAILY, Disp: ,Rfl: Vit-Fe Fumarate-FA ( Vitamins) 28-0.8 MG tablet, TAKE 1 TABLET BY MOUTH DAILY, Disp: 90 tablet, Rfl: 0 propranolol LA (Inderal LA) 60 MG 24 hr capsule, Take 1 capsule (60 mg) by mouth Once per day. Do not crush, chew, or split., Disp: 30 capsule, Rfl: 11 Tirzepatide-Weight Management (Zepbound) 7.5 MG/0.5ML solution auto-injector, Inject 0.5 mL (7.5 mg) under the skin 1 (one) time per week., Disp: 3 mL, Rfl: 3 triamcinolone (Kenalog) 0.1 % ointment, APPLY TOPICALLY TWICE DAILY X 1 WEEK TO RASH ON RIGHT FOOT,Disp: 15 g, Rfl: 0 Ventolin HFA 108 (90 Base) MCG/ACT inhaler, INHALE 2 PUFFS INTO THE LUNGS EVERY 2 TO 6 HOURS NEEDED, Disp: 18 g, Rfl: 0 Scribe Attestation: Perry Lr, am serving as a scribe to document services personally performed by Leidy Hillman, based on the patient's response to questions by provider and provider's statements to me. 12/08/24 11:42 AM Physicians Attestation: Leidy Lr DO, have reviewed the information by the scribe, Perry Stone, for accuracy and agree with its content. * Patricia Martin RN - 12/08/2024 10:40 AM EDT Assessment: Patient presents to [facility] c/o Dizziness, difficulty ambulating that started 3 weeks ago. HX of Meniere's disease. Patient currently taking Meclizine 3 x a day no relief per patient. Symptoms have been present for weeks. Symptoms are constant. Patient is taking (treatment/meds) Pt reported she takes meclizine 3 x's a VS as follows (if applicable): Temp 97.6 orally HR 84 regular rate and rhythm Resp 16 none BP 125/87 right Arm; Device: Automatic Cuff Size: large O2 sat 98 % on room air Pain level: 0 Allergies[1] Current Medications[2] Patient Active Problem List Diagnosis Date Noted Class 2 severe obesity due to excess calories with serious comorbidity and body mass index (BMI) of38.0 to 38.9 in adult ([facility]) 11/17/2024 Snoring 10/19/2024 Class 3 severe obesity due to excess calories with serious comorbidity and body mass index (BMI) of45.0 to 49.9 in adult 02/01/2024 Hearing impairment 01/14/2024 Sprain of left ankle 08/08/2023 Right foot pain 06/04/2023 Meniere's disease of both ears 06/04/2023 Subacute maxillary sinusitis 04/08/2023 Screening mammogram for breast cancer 03/09/2023 Acute pain of left knee 11/24/2022 Fibromyositis 10/30/2022 Gestational diabetes mellitus (GDM) 10/30/2022 Headache 10/30/2022 MRSA (methicillin resistant staph aureus) culture positive 10/30/2022 Prolonged QT syndrome 10/30/2022 Seasonal allergies 10/30/2022 Severe anemia 10/30/2022 Spondylosis, thoracic, without myelopathy 10/30/2022 Essential hypertension 10/13/2022 Thyroid condition 10/13/2022 Routine screening for STI (sexually transmitted infection) 10/13/2022 Sore throat 09/01/2022 Post-nasal drip 09/01/2022 Acute left-sided thoracic back pain 09/01/2022 Lumbar back pain 08/27/2022 Disorder of sacrum 12/10/2021 Iron deficiency anemia 11/24/2019 Obesity with body mass index 30 or greater 04/20/2018 PCOS (polycystic ovarian syndrome) 04/02/2018 Bipolar disorder in remission ([facility]) 04/02/2018 Leukocytosis 04/02/2018 Mild intermittent asthma 04/02/2018 Obstructive sleep apnea syndrome 04/02/2018 Pseudoseizures 04/02/2018 PVCs (premature ventricular contractions) 04/02/2018 Tear of medial meniscus of left knee, current 07/27/2023 In Office Testing Plan of care: Provider evaluation: No Patient in Nurse triage room waiting for provider. Patricia Martin RN [1] Allergies Allergen Reactions Amoxicillin Anaphylaxis Azithromycin Anaphylaxis and Other Other reaction(s): unspecified azithromycin Hydrocodone Anaphylaxis Other reaction(s): Difficulty breathing, unspecified Trouble breathing Hydrocodone-Acetaminophen Shortness of breath Levofloxacin Anaphylaxis Other reaction(s): unspecified Penicillins Itching and Shortness of breath Other reaction(s): unspecified Sulfamethoxazole Anaphylaxis Other reaction(s): unspecified Sulfanilamide Anaphylaxis Sulfamethoxazole-Trimethoprim Other Other reaction(s): Swelling of throat, Throat Tightness Bactrim Amoxicillin-Pot Clavulanate Other reaction(s): Difficulty breathing Clavulanic Acid Other reaction(s): unspecified unknown Diphenhydramine Hydromorphone Other hydromorphone Metoclopramide Nabumetone Ondansetron Penicillin V Other penicillin V potassium Rizatriptan Sulfa Antibiotics Trimethoprim Other reaction(s): unspecified [2] Current Outpatient Medications Medication Sig Dispense Refill acetaminophen (Tylenol) 500 MG tablet Take 2 tablets (1,000 mg) by mouth every 6 (six) hours if needed for moderate pain or fever for up to 25 doses. 30 tablet 0 amLODIPine (Norvasc) 10 MG tablet TAKE 1 TABLET BY MOUTH EVERY DAY 90 tablet 0 amphetamine-dextroamphetamine (Adderall) 10 MG tablet Take 1 tablet (10 mg) by mouth 2 times daily.20 tablet 0 amphetamine-dextroamphetamine (Adderall) 10 MG tablet Take 1 tablet (10 mg) by mouth 2 times daily.60 tablet 0 B Complex Vitamins (vitamin B complex) tablet Take 1 tablet by mouth in the morning. benzonatate (Tessalon Perles) 100 MG capsule Take 1 capsule (100 mg) by mouth if needed in the morning, at noon, and at bedtime for cough. Do not crush or chew. 20 capsule 0 capsaicin (Zostrix) 0.025 % cream Apply topically 2 times daily. 56.6 g 0 cetirizine (ZyrTEC) 10 MG tablet TAKE 1 TABLET BY MOUTH EVERY DAY NEEDED FOR ALLERGIES 90 tablet2 cholecalciferol (Vitamin D-3) 25 MCG (1000 UT) tablet Take 1 tablet (25 mcg) by mouth in the morning. 60 tablet 11 diazePAM (Valium) 5 MG tablet Take 5 mg by mouth if needed in the morning, at noon, and at bedtime. Diclofenac Sodium 1 % gel To apply to the affected area 3 times a day. 100 g 0 Diclofenac Sodium 1 % gel To apply to the affected area 3 times a day 100 g 0 famotidine (Pepcid) 20 MG tablet Take 1 tablet (20 mg) by mouth 2 times daily. 60 tablet 11 Flovent HFA 110 MCG/ACT inhaler Inhale 2 puffs in the morning and at bedtime. 12 g 2 fluticasone (Flonase) 50 MCG/ACT nasal spray SHAKE LIQUID AND USE 1 TO 2 SPRAYS IN EACH NOSTRIL EVERY MORNING 48 g 0 hydroCHLOROthiazide (HYDRODiuril) 25 MG tablet TAKE 1 TABLET(25 MG) BY MOUTH IN THE MORNING 90 tablet 3 LORazepam (Ativan) 0.5 MG tablet Take 0.25 mg by mouth. meloxicam (Mobic) 15 MG tablet Take 1 tablet (15 mg) by mouth Once per day. 30 tablet 11 methocarbamol (Robaxin) 750 MG tablet TAKE 1 TABLET BY MOUTH FOUR TIMES DAILY FOR 10 DAYS 40 tablet0 omeprazole (PriLOSEC) [address] capsule TAKE 1 CAPSULE BY MOUTH EVERY DAY BEFORE A MEAL 90 capsule 0 polyethylene glycol, PEG, 3350 (Glycolax) 17 GM/SCOOP powder TAKE 17 GRAMS BY MOUTH DAILY Vit-Fe Fumarate-FA ( Vitamins) 28-0.8 MG tablet TAKE 1 TABLET BY MOUTH DAILY 90 tablet 0 propranolol LA (Inderal LA) 60 MG 24 hr capsule Take 1 capsule (60 mg) by mouth Once per day. Do not crush, chew, or split. 30 capsule 11 Semaglutide-Weight Management 2.4 MG/0.75ML solution auto-injector Inject 0.75 mL (2.4 mg) under the skin 1 (one) time per week. 2 mL 1 Tirzepatide-Weight Management (Zepbound) 5 MG/0.5ML solution auto-injector INJECT 5 MG UNDER THE SKIN ONCE WEEKLY 2 mL 0 Tirzepatide-Weight Management (Zepbound) 5 MG/0.5ML solution auto-injector INJECT 5 MG UNDER THE SKIN ONE TIME PER WEEK 2 mL 3 Tirzepatide-Weight Management (Zepbound) 7.5 MG/0.5ML solution auto-injector Inject 0.5 mL (7.5 mg)under the skin 1 (one) time per week. 3 mL 3 triamcinolone (Kenalog) 0.1 % ointment APPLY TOPICALLY TWICE DAILY X 1 WEEK TO RASH ON RIGHT FOOT 15 g 0 Ventolin HFA 108 (90 Base) MCG/ACT inhaler INHALE 2 PUFFS INTO THE LUNGS EVERY 2 TO 6 HOURS NEEDED 18 g 0 No current facility-administered medications for this visit. documented in this encounter Plan of Treatment Upcoming Encounters Date Type Department Care Team (Late st Contact Info) Description 01/19/2025 8:30 AM EDT Telemedicine [facility] [address] [place], [place] [id number] Porfirio Goodman MD [address] [place] [address] Scheduled Orders Name Type Priority Associated Diagnoses Orde r Schedule MR Brain w/o Contrast Imaging Routine Dizziness Expected: 12/08/2024, Expires: 12/08/2025 Scheduled Referrals Name Type Priority Associated Diagnoses Orde r Schedule Referral to Physical Therapy Outpatient Referral Routine Dizziness Expected: 12/08/2024 (Approximate), Expires: 12/08/2025 documented as of this encounter Visit Diagnoses Diagnosis Dizziness- Primary Dizziness and giddiness Post-nasal drip Postnasal drip documented in this encounter Care Teams Shaft Repairer Relationship Specialty Start Date End Date Porfirio Goodman MD [address] [place] [address] PCP - General Internal Medicine 12/05/19 Amber Mittal Song And Dance PerformerRoller Pneumatic 04/20/24 documented as of this encounter
--- OUTSIDE RECORDS SUMMARY | 2024-12-10 15:27 | XMS_ITS | Encounter Summary ---
Author Organization [employer] Address [address] [facility] 7 [place] [address] Care Team Providers Care Investment Sales Assistant Name Role Phone Porfirio Goodman MD Primary Care Prov ider Reason for Visit * Reason Onset Date Comments Results 09/22/2022 Encounter Details Date Type Department Care Team ([facility] st Contact Info) Description 09/22/2022 Telephone [facility] [address] [place] [address] Porfirio Goodman MD [address] [place] [address] Results Social History Tobacco Use Types Packs/Day [...] requesting XR results please contact pt at [phone] documented in this encounter Plan of Treatment Upcoming Encounters Date Type Department Care Team ([facility] st Contact Info) Description 01/19/2025 8:30 AM EDT Telemedicine [facility] [address] [place] [address] Porfirio Goodman MD [address] [place] [address] documented as of this encounter Visit Diagnoses Not on filedocumented in this encounter Care Teams Investment Sales Assistant Relationship Specialty Start Date End Date Porfirio Goodman MD [address] [place] [address] PCP - General Internal Medicine 12/05/19 Amber Mittal Sociology TeacherShipping Receiving Clerk 04/20/24 documented as of this encounter
--- OUTSIDE RECORDS SUMMARY | 2024-12-10 15:27 | XMS_ITS | Encounter Summary ---
Author Organization [employer] Address [address] [facility] 7 [place] [address] Care Team Providers Care Gis Software Developer Name Role Phone Porfirio Goodman MD Primary Care Prov ider Reason for Visit * Reason Onset Date Comments Referral 04/19/2024 Encounter Details Date Type Department Care Team ([facility] st Contact Info) Description 04/19/2024 Telephone [facility] [address] [place] [address] Porfirio Goodman MD [address] [place] [address] Referral Social History Tobacco Use Types Packs/Day [...] - 04/19/2024 11:25 AM EDT [facility] calling to request a new referral for sleep study due toprevious one being documented in this encounter Plan of Treatment Upcoming Encounters Date Type Department Care Team (Late st Contact Info) Description 01/19/2025 8:30 AM EDT Telemedicine [facility] [address] [place] [address] Porfirio Goodman MD [address] [place] [address] documented as of this encounter Visit Diagnoses Not on filedocumented in this encounter Care Teams Gis Software Developer Relationship Specialty Start Date End Date Porfirio Goodman MD [address] [place] [address] PCP - General Internal Medicine 12/05/19 Amber Mittal Jammer HookerBottom Man 04/20/24 documented as of this encounter
--- OUTSIDE RECORDS SUMMARY | 2024-12-10 15:27 | XMS_ITS | Encounter Summary ---
Author Organization [employer] Address 75 [facility] [place] [address] Care Team Providers Care Microbiological Laboratory Technician Name Role Phone Porfirio Goodman MD Primary Care Prov ider Reason for Visit * Reason Onset Date Comments Med Refill 12/07/2024 Encounter Details Date Type Department Care Team ([facility] st Contact Info) Description 12/07/2024 Refill [facility] MED & PEDS [address] [place] [address] Porfiiro Goodman MD [address] [place] [address] Social History Tobacco Use Types Packs/Day Years [...] Info) Description 01/19/2025 8:30 AM EDT Telemedicine [facility] [address] [place] [address] Porfirio Goodman MD [address] [place] [address] documented as of this encounter Visit Diagnoses Not on filedocumented in this encounter Care Teams Microbiological Laboratory Technician Relationship Specialty Start Date End Date Porfirio Goodman MD [address] [place] [address] PCP - General Internal Medicine 12/05/19 Amber Mittal Incident HandlerControl Specialist 04/20/24 documented as of this encounter
--- OUTSIDE RECORDS SUMMARY | 2024-12-10 15:27 | XMS_ITS | Encounter Summary ---
Author Organization [email or web address] Address 75 [facility] 7 [place] [address] Care Team Providers Care Curer Foam Rubber Name Role Phone Porfirio Goodman MD Primary Care Prov ider Reason for Visit * Reason Onset Date Comments Nurse Triage 02/29/2024 Encounter Details Date Type Department Care Team ([facility] st Contact Info) Description 02/29/2024 Telephone [facility] MEDICINE [address] [place] [address] Porfirio Goodman MD [address] [place] [address] Nurse Triage Social History Tobacco Use Types [...] answer. Left voice message x2 to call [facility] triage line at [phone] when Pt gets an opportunity. * Telephone Encounter - Mamie Goncalves - 02/29/2024 9:14 AM EDT Symptom: Fall Outcome: Schedule an appointment to be seen within 24 hours Reason: body aches The caller accepted this outcome documented in this encounter Plan of Treatment Upcoming Encounters Date Type Department Care Team ([facility] st Contact Info) Description 01/19/2025 8:30 AM EDT Telemedicine [facility] MED & PEDS [address] [place] [address] Porfirio Goodman MD [address] [place] [address] documented as of this encounter Visit Diagnoses Not on filedocumented in this encounter Care Teams Curer Foam Rubber Relationship Specialty Start Date End Date Porfirio Goodman MD [address] [place] [address] PCP - General Internal Medicine 12/05/19 Amber Mittal Ms Sql Server DeveloperStem Roller 04/20/24 documented as of this encounter
--- OUTSIDE RECORDS SUMMARY | 2024-12-10 15:27 | XMS_ITS | Encounter Summary ---
Author Organization [employer] Address 75 [facility] 7 [place] [address] Care Team Providers Care Audience Coordinator Name Role Phone Porfirio Goodman MD Primary Care Prov ider Reason for Visit * Reason Onset Date Comments Nurse Triage 01/01/2024 Encounter Details Date Type Department Care Team ([facility] st Contact Info) Description 01/01/[address] [facility] MEDICINE [address] [place] [address] Porfirio Goodman MD [address] [place] [address] Nurse Triage Social History Tobacco Use Types [...] Info) Description 01/19/2025 8:30 AM EDT Telemedicine [facility] MED & PEDS [address] [place] [address] Porfirio Goodman MD [address] [place] [address] documented as of this encounter Visit Diagnoses Not on filedocumented in this encounter Care Teams Audience Coordinator Relationship Specialty Start Date End Date Porfirio Goodman MD [address] [place] [address] PCP - General Internal Medicine 12/05/19 Amber Mittal Video Game CreatorRounding Machine Tender 04/20/24 documented as of this encounter
--- OUTSIDE RECORDS SUMMARY | 2024-12-10 15:27 | XMS_ITS | Encounter Summary ---
Author Organization [employer] Address 75 [facility] 7 [place] [address] Care Team Providers Care Getter Operator Name Role Phone Porfirio Goodman MD Primary Care Prov ider Encounter Details Date Type Department Care Team ([facility] st Contact Info) Description 08/18/2024 Orders Only [facility] CHC MED & PEDS [address] [place], [place] [id number] Porfirio Goodman MD [address] [place] [address] Social History Tobacco Use Types Packs/Day Years [...] Info) Description 01/19/2025 8:30 AM EDT Telemedicine [facility] MED & PEDS [address] [place] [address] Porfirio Goodman MD [address] [place] [address] documented as of this encounter Visit Diagnoses Not on filedocumented in this encounter Care Teams Getter Operator Relationship Specialty Start Date End Date Porfirio Goodman MD [address] [place] [address] PCP - General Internal Medicine 12/05/19 Amber Mittal Polisher ImplantHigh Worker 04/20/24 documented as of this encounter
--- OUTSIDE RECORDS SUMMARY | 2024-12-10 15:27 | XMS_ITS | Encounter Summary ---
Author Organization [employer] Address 75 [facility] 7 [place] [address] Care Team Providers Care Landscape Designer Name Role Phone Porfirio Goodman MD Primary Care Prov ider Reason for Visit * Reason Onset Date Comments Nurse Triage 12/05/2024 Encounter Details Date Type Department Care Team ([facility] st Contact Info) Description 12/05/2024 Telephone [facility] CHC MED & PEDS [address] [place] [address] Porfirio Goodman MD [address] [place] [address] Nurse Triage Social History Tobacco Use Types [...] Telephone Encounter - Wing Warren RN - 12/05/2024 10:46 AM EDT Tc to pt to inquire about symptoms pt is experiencing and schedule an appt accordingly. Unable to reach pt, left message to call back. * Telephone Encounter - Ghanshyam Talavera - 12/05/2024 10:25 AM EDT Patient stated she has been having dizziness spells for two wks and would like to be seen for this concern. documented in this encounter Plan of Treatment Upcoming Encounters Date Type Department Care Team (Late st Contact Info) Description 01/19/2025 8:30 AM EDT Telemedicine [facility] MED & PEDS [address] [place] [address] Porfirio Goodman MD [address] [place] [address] documented as of this encounter Visit Diagnoses Not on filedocumented in this encounter Care Teams Landscape Designer Relationship Specialty Start Date End Date Porfirio Goodman MD [address] [place] [address] PCP - General Internal Medicine 12/05/19 Amber Mittal Optical Glass SilvererDental Lab Technician 04/20/24 documented as of this encounter
--- OUTSIDE RECORDS SUMMARY | 2024-12-10 15:27 | XMS_ITS | Encounter Summary ---
Author Organization [employer] Address [address] [facility] [address] 7t [place] [address] Care Team Providers Care Proof Technician Helper Name Role Phone Porfirio Goodman MD Primary Care Prov ider Reason for Visit * Reason Onset Date Comments Med Refill 01/11/2024 Encounter Details Date Type Department Care Team (Late st Contact Info) Description 01/11/2024 Refill [facility] [address] [place] [address] Doug Vargas MD [address] [place] [address] Abdominal wall pain Social History Tobacco Use [...] Description 01/19/2025 8:30 AM EDT Telemedicine [facility] MED & PEDS [address] [place] [address] Porfirio Goodman MD [address] [place] [address] documented as of this encounter Visit Diagnoses Diagnosis Abdominal wall pain Abdominal pain, unspecified site documented in this encounter Care Teams Proof Technician Helper Relationship Specialty Start Date End Date Porfirio Goodman MD [address] [place] [address] PCP - General Internal Medicine 12/05/19 Amber Mittal Strap Machine Operator AutomaticPlan Examiner 04/20/24 documented as of this encounter
--- OUTSIDE RECORDS SUMMARY | 2024-12-10 15:27 | XMS_ITS | Encounter Summary ---
Author Organization [employer] Address 75 [facility] 7t [place] [address] Care Team Providers Care Cylinder Steamer Name Role Phone Porfirio Goodman MD Primary Care Prov ider Encounter Details Date Type Department Care Team ([facility] st Contact Info) Description 10/19/2024 Telephone [facility] MEDICINE [address] [place] [address] Porfirio Goodman MD [address] [place] [address] Social History Tobacco Use Types Packs/Day Years Used Date Smoking Tobacco: Never Passive Smoke Exposure: Never Smokeless Tobacco: Never Alcohol Use Standard Drinks/Week Comments Never 0 (1 standard drink = 0.6 oz pur e alcohol) Housing Stability Answer Date Recorded What is your housing situation today? I have mike lilliam 02/01/[address] you li [...] encounter Miscellaneous Notes * Telephone Encounter - Ozzy Fajardo - 10/19/2024 8:41 AM EDT Tc from pt stating that she had appt with Eduard wilson over the phone today at 8:30 and she hasn't received a call. Contact pt at [phone] documented in this encounter Plan of Treatment Upcoming Encounters Date Type Department Care Team (Late st Contact Info) Description 01/19/2025 8:30 AM EDT Telemedicine [facility] MED & PEDS [address] [place] [address] Porfirio Goodman MD [address] [place] [address] documented as of this encounter Visit Diagnoses Not on filedocumented in this encounter Care Teams Cylinder Steamer Relationship Specialty Start Date End Date Porfirio Goodman MD [address] [place] [address] PCP - General Internal Medicine 12/05/19 Amber Mittal Field Service TechnicianSalesperson Household Appliances 04/20/24 documented as of this encounter
--- OUTSIDE RECORDS SUMMARY | 2024-12-10 15:27 | XMS_ITS | Encounter Summary ---
Author Organization [employer] Address 75 [facility] 7 [place] [address] Care Team Providers Care Aircraft Loadmaster Superintendent Name Role Phone Porfirio Goodman MD Primary Care Prov ider Reason for Visit * Reason Onset Date Comments Prior Authorization 08/09/2024 Encounter Details Date Type Department Care Team ([facility] Contact Info) Description 08/09/2024 Telephone [facility] CHC MED & PEDS [address] [place] [address] Porfirio Goodman MD [address] [place] [address] Prior Authorization Social History Tobacco Use Types [...] Info) Description 01/19/2025 8:30 AM EDT Telemedicine [facility] CHC MED & PEDS [address] [place] [address] Porfirio Goodman MD [address] [place] [address] documented as of this encounter Visit Diagnoses Not on filedocumented in this encounter Care Teams Aircraft Loadmaster Superintendent Relationship Specialty Start Date End Date Porfirio Goodman MD [address] [place] [address] PCP - General Internal Medicine 12/05/19 Amber Mittal Preparer Making DepartmentDrying Tumbler Operator 04/20/24 documented as of this encounter
--- OUTSIDE RECORDS SUMMARY | 2024-12-10 15:27 | XMS_ITS | Encounter Summary ---
Author Organization [employer] Address 75 [facility] 7 [place] [address] Care Team Providers Care Public Relations Writer Name Role Phone Porfirio Goodman MD Primary Care Prov ider Encounter Details Date Type Department Care Team ([facility] st Contact Info) Description 10/29/2023 Orders Only [facility] CHC MED & PEDS [address] [place], [place] [phone] Ambika Webster MD [address] [place] [address] Low vitamin D level (Primary Dx); Other [...] Info) Description 01/19/2025 8:30 AM EDT Telemedicine [facility] MED & PEDS [address] [place] [address] Porfirio Goodman MD [address] [place] [address] Scheduled Orders Name Type Priority Associated Diagnoses Orde r Schedule Iron And Total Iron Binding Capacity Lab Routine Other iron deficiency anemia Expected: 10/29/2023, Expires: 10/28/2024 Ferritin Lab Routine Other iron deficiency anemia Expected: 10/29/2023, Expires: 10/28/2024 documented as of this encounter Visit Diagnoses Diagnosis Low vitamin D level- Primary Other iron deficiency anemia documented in this encounter Care Teams Public Relations Writer Relationship Specialty Start Date End Date Porfirio Goodman MD [address] [place] [address] PCP - General Internal Medicine 12/05/19 Amber Mittal Victorian Literature ProfessorStrong Nitric Operator 04/20/24 documented as of this encounter
--- OUTSIDE RECORDS SUMMARY | 2024-12-10 15:27 | XMS_ITS | Encounter Summary ---
Author Organization [employer] Address [address] [facility] [place] [address] Care Team Providers Care Ground Source Heat Pump Technician Name Role Phone Porfirio Goodman MD Primary Care Prov ider Reason for Visit * Reason Onset Date Comments Med Refill 11/09/2024 Encounter Details Date Type Department Care Team ([facility] st Contact Info) Description 11/09/2024 Refill [facility]EDS [address] [place] [address] Porfirio Goodman MD [address] [place] [address] Social History Tobacco Use Types Packs/Day Years [...] [facility] [address] [place] [address] Porfirio Goodman MD [address] [place] [address] documented as of this encounter Visit Diagnoses Not on filedocumented in this encounter Care Teams Ground Source Heat Pump Technician Relationship Specialty Start Date End Date Porfirio Goodman MD [address] [place] [address] PCP - General Internal Medicine 12/05/19 Amber Mittal Cardiology TechnicianNuclear Operations Specialist 04/20/24 documented as of this encounter
--- OUTSIDE RECORDS SUMMARY | 2024-12-10 15:27 | XMS_ITS | Encounter Summary ---
Author Organization [employer] Address 75 [facility] 7 [place] [address] Care Team Providers Care Drug Safety Associate Name Role Phone Porfirio Goodman MD Primary Care Prov ider Reason for Visit * Reason Onset Date Comments Medication Question 08/02/2024 Encounter Details Date Type Department Care Team ([facility] Contact Info) Description 08/02/2024 Telephone [facility] CHC MED & PEDS [address] [place], [place] [phone] Porfirio Goodman MD [address] [place] [address] Medication Question Social History Tobacco Use Types [...] Info) Description 01/19/2025 8:30 AM EDT Telemedicine [facility] MED & PEDS [address] [place] [address] Porfirio Goodman MD [address] [place] [address] documented as of this encounter Visit Diagnoses Not on filedocumented in this encounter Care Teams Drug Safety Associate Relationship Specialty Start Date End Date Porfirio Goodman MD [address] [place] [address] PCP - General Internal Medicine 12/05/19 Amber Mittal Sewing Machine Operator Plastic ZipperRn Concurrent Review 04/20/24 documented as of this encounter
--- OUTSIDE RECORDS SUMMARY | 2024-12-10 15:27 | XMS_ITS | Encounter Summary ---
Author Organization [employer] Address [address] [facility] [place] [address] Care Team Providers Care Film Waxer Name Role Phone Porfirio Goodman MD Primary Care Prov ider Reason for Visit * Reason Onset Date Comments Med Refill 06/27/2024 Encounter Details Date Type Department Care Team ([facility] st Contact Info) Description 06/27/2024 Refill [facility] MED & PEDS [address] [place] [address] Porfirio Goodman MD [address] [place] [address] Social History Tobacco Use Types Packs/Day Years [...] Info) Description 01/19/2025 8:30 AM EDT Telemedicine [facility] MED & PEDS [address] [place] [address] Porfirio Goodman MD [address] [place] [address] documented as of this encounter Visit Diagnoses Not on filedocumented in this encounter Care Teams Film Waxer Relationship Specialty Start Date End Date Porfirio Goodman MD [address] [place] [address] PCP - General Internal Medicine 12/05/19 Amber Mittal Director TelemetryGum Remover 04/20/24 documented as of this encounter
--- OUTSIDE RECORDS SUMMARY | 2024-12-10 15:27 | XMS_ITS | Clinical Summary ---
Author Organization [employer] Address [address] [place] [address] 7 [place] [address] Care Team Providers Care Light Equipment Operator Name Role Phone Porfirio Goodman MD Primary Care Prov ider Allergies Active Allergy Reactions Criticality Noted Date Comments Amoxicillin Anaphylaxis High 10/25/2018 Amoxicillin-Pot Clavulanate 09/19/2022 Other reaction(s): Difficulty breathing Azithromycin Anaphylaxis,Other High 10/16/2010 Other reaction(s): unspecified azithromycin Clavulanic Acid 10/16/2010 Other reaction(s): unspecified unknown Diphenhydramine 11/01/2021 Hydrocodone Anaphylaxis High 10/16/2010 Other reaction(s): Difficulty breathing, unspecified Trouble breathing Hydrocodone-Acetaminophe n Shortness of breath High 05/16/2021 Hydromorphone Other 12/08/2024 hydromorphone Levofloxacin Anaphylaxis High 10/16/2010 Other reaction(s): unspecified Metoclopramide 11/01/2021 Nabumetone 11/01/2021 Ondansetron 11/01/2021 Penicillin V Other 12/08/2024 penicillin V potassium Penicillins Itching,Shortness of breath High 10/16/2010 Other reaction(s): unspecified Rizatriptan 11/01/2021 Sulfa Antibiotics 09/19/2022 Sulfamethoxazole Anaphylaxis High 10/16/2010 Other reaction(s): unspecified Sulfamethoxazole-Trimeth oprim Other Medium 11/25/2006 Other reaction(s): Swelling of throat, Throat Tightness Bactrim Sulfanilamide Anaphylaxis High 05/16/2021 Trimethoprim 10/16/2010 Other [...] GRAMS BY MOUTH DAILY 07/15/20 22 Active famotidine (Pepcid) 20 MG tabletIndicatio ns:Other [...] crush or chew. 20 capsule 12/24/19 24 025 Active amLODIPine (Norvasc) 10 MG tablet TAKE 1 TABLET BY MOUTH EVERY DAY 90 tablet 01/12/20 24 Active meloxicam (Mobic) 15 MG tablet Take 1 tablet (15 mg) by mouth Once per day. 30 tablet 11 02/01/20 24 025 Active triamcinolone (Kenalog) 0.1 % ointment APPLY TOPICALLY TWICE DAILY X 1 WEEK TO RASH ON RIGHT FOOT 15 g 04/06/20 24 Active acetaminophen (Tylenol) 500 MG tablet Take 2 tablets (1,000 mg) by mouth every 6 (six) hours if needed for moderate pain or fever for up to 25 doses. 30 tablet 04/06/20 24 Active hydroCHLOROthia zide (HYDRODiuril) 25 MG tabletIndicatio ns:Essential hypertension TAKE 1 TABLET(25 MG) BY MOUTH IN THE MORNING 90 tablet 3 05/27/20 24 Active capsaicin (Zostrix) 0.025 % creamIndication s:Chronic pain of right thumb Apply topically 2 times daily. 56.6 g 06/02/20 24 025 Active propranolol LA (Inderal LA) 60 MG 24 hr capsule Take 1 capsule (60 mg) by mouth Once per day. Do not crush, chew, or split. 30 capsule 11 07/04/20 24 025 Active omeprazole (PriLOSEC) [address] capsuleIndicati ons:Gastroesoph ageal reflux disease without esophagitis TAKE 1 CAPSULE BY MOUTH EVERY DAY BEFORE A MEAL 90 capsule 09/30/19 25 Active Vit-Fe Fumarate-FA ( Vitamins) 28-0.8 MG tablet TAKE 1 TABLET BY MOUTH DAILY 90 tablet 10/18/19 25 Active Ventolin HFA 108 (90 Base) MCG/ACT inhaler INHALE 2 PUFFS INTO THE LUNGS EVERY 2 TO 6 HOURS NEEDED 18 g 10/18/19 25 Active amphetamine-dex troamphetamine (Adderall) 10 MG tablet Take 1 tablet (10 mg) by mouth 2 times daily. 60 tablet 11/18/19 25 025 Active Tirzepatide-Martin ght Management (Zepbound) 7.5 MG/0.5ML solution auto-injector Inject 0.5 mL (7.5 mg) under the skin 1 (one) time per week. 3 mL 3 11/18/19 25 Active methocarbamol (Robaxin) 750 MG tablet TAKE 1 TABLET BY MOUTH FOUR TIMES DAILY NEEDED 60 tablet 3 12/09/19 25 Active fluticasone (Flonase) 50 MCG/ACT nasal sprayIndication s:Post-nasal drip Administer 2 sprays into each nostril Once per day. Shake gently. Before first use, prime pump. After use, clean tip and replace cap. 48 g 3 12/09/19 25 Active fexofenadine (Sarah) 180 MG tablet Take 1 tablet (180 mg) by mouth Once per day. 90 tablet 3 12/09/19 026 Active meclizine (Antivert) 25 MG tablet Take 1 tablet (25 mg) by mouth if needed in the morning, at noon, in the evening, and at bedtime for dizziness. 60 tablet 1 12/09/19 026 Active Diclofenac Sodium 1 % gelIndications: Left medial knee pain To apply to the affected area 3 times a day. 100 g 10/30/19 025 Discontinued(M ed list cleanup (will not trigger notification to Pharmacy)) fluticasone (Flonase) 50 MCG/ACT nasal sprayIndication s:Post-nasal drip SHAKE LIQUID AND USE 1 TO 2 SPRAYS IN EACH NOSTRIL EVERY MORNING 48 g 03/17/20 025 Discontinued(R eorder (will not trigger notification to Pharmacy)) cetirizine (ZyrTEC) 10 MG tablet TAKE 1 TABLET BY MOUTH EVERY DAY NEEDED FOR ALLERGIES 90 tablet 2 02/05/20 24 025 Discontinued Semaglutide-Martin ght Management 2.4 MG/0.75ML solution auto-injector Inject 0.75 mL (2.4 mg) under the skin 1 (one) time per week. 2 mL 1 07/28/19 025 Discontinued(M ed list cleanup (will not trigger notification to Pharmacy)) amphetamine-dex troamphetamine (Adderall) 10 MG tablet Take 1 tablet (10 mg) by mouth 2 times daily. 20 tablet 08/26/19 025 Discontinued(M ed list cleanup (will not trigger notification to Pharmacy)) Tirzepatide-Martin ght Management (Zepbound) 5 MG/0.5ML solution auto-injector INJECT 5 MG UNDER THE SKIN ONCE WEEKLY 2 mL 09/06/19 025 Discontinued(M ed list cleanup (will not trigger notification to Pharmacy)) Tirzepatide-Martin ght Management (Zepbound) 5 MG/0.5ML solution auto-injector INJECT 5 MG UNDER THE SKIN ONE TIME PER WEEK 2 mL 3 10/08/19 025 Discontinued(M ed list cleanup (will not trigger notification to Pharmacy)) methocarbamol (Robaxin) 750 MG tablet Take 1 tablet (750 mg) by mouth 4 times daily for 10 days. 40 tablet 10/19/19 25 025 Discontinued(R eorder (will not trigger notification to Pharmacy)) amphetamine-dex troamphetamine (Adderall) 10 MG tablet Take 1 tablet (10 mg) by mouth 2 times daily. 60 tablet 10/19/19 25 025 Discontinued(R eorder (will not trigger notification to Pharmacy)) methocarbamol (Robaxin) 750 MG tablet TAKE 1 TABLET BY MOUTH FOUR TIMES DAILY FOR 10 DAYS 40 tablet 11/17/19 25 025 Discontinued(R eorder (will not trigger notification to Pharmacy)) Active Problems Problem Noted Date Diagnosed Date Class 2 severe obesity due t o excess calories with serious comorbidity and body mass index (BMI) of 38.0 to 38.9 in adult 11/17/2024 Assessment & Plan (11/17/2024 6:03 PM EDT): Patient has been tolerating zepound 5mg, will increase dose to 7.5mg, encouraged to continue low calorie intake exercise as tolerated, will follow up in 3 months Snoring 10/19/2024 Assessment & Plan (10/19/2024 9:08 AM EDT): Will refer to sleep study test, encouraged to keep losing weight Class 3 severe obesity due t o [...] cheduled for surgery with Dr. Puga at [facility] on 08/14/23. Assessment & Plan (07/27/2023 4:20 [...] Pt not opioid naive -Follow up with [facility] Ortho as scheduled -Cont with symptomatic management [...] is scheduled ofr left knee surgery on , refers able to bear weight, but it tender/mildly swollen, will provide oxycodine for 5 day, told to rest/apply ice, call back if not improving in 5 days Assessment & Plan (11/24/2022 10:12 AM EDT): Lucinaa had MRI with medial meniscus tear, mcl [...] Encounters Date Type Department Care Team Description 12/08/2024 10:40 AM EDT Office Visit [facility] [address] [place] [address] Leidy Morelos DO Dizziness (Primary Dx); Post-nasal drip 12/07/2024 Refill [facility] [address] [place] [address] Porfirio Goodman MD 12/05/2024 Telephone [facility] [address] [place] [address] Porfirio Goodman MD Nurse Triage 11/17/2024 3:45 PM EDT Office Visit [facility] [address] [place] [address] Porfirio Goodman MD Class 2 severe obesity due to excess calories with serious comorbidity and body mass index (BMI) of 38.0 to 38.9 in adult (CMS/FORMER[facility]) (Primary Dx) 11/17/2024 Travel 11/15/2024 Refill [facility] [address] [place] [address] Porfirio Goodman MD 11/09/2024 Refill [facility] [address] [place] [address] Porfirio Goodman MD 10/19/2024 8:30 AM EDT Telemedicine [facility] [address] [place] [address] Porfirio Goodman MD Snoring (Primary Dx); Vertigo 10/19/2024 Telephone [facility] [address] [place] [address] Porfirio Goodman MD 10/19/2024 Travel 10/18/2024 Telephone [facility] [address] [place] [address] Porfirio Goodman MD chart prep 10/17/2024 Refill [facility] [address] [place] [address] Porfirio Goodman MD 10/17/2024 Refill [facility] [address] [place] [address] Porfirio Goodman MD 10/15/2024 Refill [facility] [address] [place] [address] Porfirio Goodman MD 10/12/2024 Telephone [facility] [address] [place] [address] Porfirio Goodman MD Referral 10/07/2024 Population Health Risk Score [facility] [address] [place] [id number] Provider, Population Health Generic 10/03/2024 Refill [facility] [address] [place] [address] Porfirio Goodman MD 09/29/2024 Refill [facility] [address] [place] [address] Porfirio Goodman MD Gastroesophageal reflux disease without esophagitis 09/16/2024 Telephone [facility] [address], [place] [phone] Porfirio Goodman MD from Last 3 Months Immunizations Immunization Administration Dates Next Due Influenza, IIV3, injectable [...] 16 12/08/2024 10:30 AM EDT Oxygen Saturation 96% 06/02/2024 11:13 AM EST Inhaled Oxygen Concentration - - Weight 95.9 kg (211 lb 6.4 oz) 11/17/2024 3:47 P M EDT Height 157.5 cm (5' 2 ) 11/17/2024 3:47 PM EDT Body Mass Index 38.67 11/17/2024 3:47 PM EDT Plan of Treatment Upcoming Encounters Date Type Department Care Team ([facility] st Contact Info) Description 01/19/2025 8:30 AM EDT Telemedicine [facility] [address] [place] [address] Baer Porfirio Flowers MD [address] [place] [address] Health Maintenance Due Date Last Done Comments [...] Vaccines (1 of 2) 2025 Tobacco Screening 12/08/2025 12/08/2024 Mammogram 05/04/2026 05/04/2024 Lipid Panel 10/14/2027 10/13/2022, [...] age to complete this topic Meningococcal B Vaccine Aged Out No l onger eligible based on patient's age to complete [...] Procedure Name Priority Date/Time Associated Diagnosis Comments HM MAMMOGRAPHY Routine 05/04/2024 10:27 AM EDT HEPATITIS [...] Recently Relevant to Health Maintenance Results * Mammography (05/04/2024 10:27 AM EDT) Anatomical Region Laterality Modality Other Historical Provider MD HEALTH MAINTENANCE Final Result * HIV-1 RNA, Quantitative, Real-Time PCR with Reflex to Genotype (RTI, PI, Integrase) (10/13/2022 11:02 AM EDT) HIV 1 RNA, QN PCR NOT DETECTED copies/mL [facility], HIV 1 RNA, QN PCR NOT DETECTED Log copies/mL [facility], Comment: REFERENCE RANGE: NOT DETECTED copies/mL ?NOT DETECTED ??Log copies/mL This test was performed using Real-Time Polymerase Chain Reaction. Reportable range is 20 to 10,000,000 copies/mL (1.30-7.00 Log copies/mL). 10/13/2022 11:0 2 AM EDT 10/13/2022 11:02 AM EDT Meenakshi Dyson BOX MACHINE OPERATOR LAB BLOOD ORDERABLES Final Resu lt [facility] [address] [facility], [facility], [place] [address] [facility], [address] [place] [address] * Hepatitis Panel, General (10/13/2022 11:02 AM EDT) Hepatitis A Antibody Total NON-REACT PAUL NON-REACT PAUL [facility] Comment: For additional information, please refer to http://education.Cerelink.com/faq/UCI272 (This link is being provided for informational/ educational purposes only.) Hepatitis B Surface Antibody QL NON-REACT PAUL NON-REACT PAUL [facility] [place] [employer] Hepatitis B Surface Ag NON-REACT PAUL NON-REACT PAUL [facility] [place] [employer] Hepatitis B Core Antibody Total NON-REACT PAUL NON-REACT PAUL [facility] [place] [employer] Hepatitis C Antibody NON-REACT PAUL NON-REACT PAUL [facility] [place] [facility] Index 0.05 <1.00 [facility] [place] [facility] Comment: HCV antibody was non-reactive. There is no laboratory evidence of HCV infection. In most cases, no further action is required. However, if recent HCV exposure is suspected, a test for HCV RNA (test code 99444) is suggested. For additional information please refer to http://education.[employer]/faq/LKN79x8 (This link is being provided for informational/ educational purposes only.) 10/13/2022 11:0 2 AM EDT 10/13/2022 11:02 AM EDT Meenakshi Dyson [facility] LAB BLOOD ORDERABLES Final Resu lt [facility] [address], [place] [address] [facility] [place] [employer] [address] [place] [address] * (ABNORMAL) Lipid Panel, Standard (10/13/2022 11:02 AM EDT) Cholesterol, Total 190 <200 mg/dL [facility] [place] [facility] HDL Cholesterol 52 > OR = 50 mg/dL [facility] [place] [facility] Triglycerides 77 <150 mg/dL [facility] [place] [facility] LDL Cholesterol 121(H) mg/dL (calc) [facility] [place] [facility] Comment: Reference range: <100 Desirable range <100 mg/dL for primary prevention; ?? <70 mg/dL for patients with CHD or diabetic patients with > or = 2 CHD risk factors. LDL-C is now calculated using the Ajay-Hopson calculation, which is a validated novel method providing better accuracy than the Friedewald equation in the estimation of LDL-C. Ajay SS et al. KEYONA. 2013;310(19): 4762-4203 (http://education.SPark!/faq/ZTA548) Chol/HDLC Ratio 3.7 <5.0 (calc) [facility] [place] [facility] Non-HDL Cholesterol 138(H) <130 mg/dL (calc) [facility] [place] [facility] Comment: For patients with diabetes plus 1 major ASCVD risk factor, treating to a non-HDL-C goal of <100 mg/dL (LDL-C of <70 mg/dL) is considered a therapeutic option. Blood Venous blood specimen / Unknown 10/13/2022 11:02 AM EDT 10/13/2022 11:02 AM EDT Meenakshi Dyson [facility] LAB BLOOD ORDERABLES Final Resu lt [facility] [address], [place] [address] [facility] [place] [employer] [address] [place] [address] * Pap Smear (10/28/2018) Pap Negative for intraephithelial lesion or malignancy Negative for intraephithelial lesion or malignancy, Other HPV Undetected Undetected, Indeterminate, Quantitative, Not Detected Historical Provider HEALTH MAINTENANCE Final Result from Last 3 Months or Most Recently Relevant to Health Maintenance Insurance [employer] Care Teams Light Equipment Operator Relationship Specialty Start Date End Date Porfirio Goodman MD [address] [place] [phone] PCP - General Internal Medicine 12/05/19 Ambre Mittal Primary Grade TeacherOven Operator 04/20/24
--- OUTSIDE RECORDS SUMMARY | 2024-12-10 15:27 | XMS_ITS | Encounter Summary ---
Author Organization [employer] Address [address] [place] [address] Care Team Providers Care Maintenance Truck Driver Name Role Phone Porfirio Goodman MD Primary Care Prov ider Encounter Details Date Type Department Care Team (Late st Contact Info) Description 08/25/2024 Orders Only [facility] [address] [place] [address] ProviderRussell MD Social History Tobacco Use Types [...] Upcoming Encounters Date Type Department Care Team ([facility] st Contact Info) Description 01/19/2025 8:30 AM EDT Telemedicine [facility] [address] [place], [place] [phone] Porfirio Goodman MD [address] [place] [address] documented as of this encounter Procedures Procedure Name Priority Date/Time Associated Diagnosis Comments MAMMOGRAPHY Routine 05/04/2024 10:27 AM EDT documented in this encounter Results * Hm Mammography (05/04/2024 10:27 AM EDT) Anatomical Region Laterality Modality Other us Historical Provider HEALTH MAINTENANCE Final Result documented in this encounter Visit Diagnoses Not on filedocumented in this encounter Care Teams Maintenance Truck Driver Relationship Specialty Start Date End Date Porfirio Goodman MD [address] [place] [address] PCP - General Internal Medicine 12/05/19 Amber Mittal Awning Frame MakerGas Furnace Installer 04/20/24 documented as of this encounter
[2024-12-10 15:28] VITALS: BP 143/86; PULSE 73; RESP 16; TEMP 37; O2SAT 99
--- OUTSIDE RECORDS SUMMARY | 2024-12-10 15:28 | XMS_ITS | Encounter Summary ---
Author Organization [employer] Address [address] [facility] [address] [place] [address] Care Team Providers Care Optimization Engineer Name Role Phone Porfirio Goodman MD Primary Care Prov ider Encounter Details Date Type Department Care Team ([facility] st Contact Info) Description 04/28/2024 Orders Only [facility] [address] [place], [place] [phone] Ambika Webster MD [address] [place] [address] Class 3 severe obesity due to excess [...] Info) Description 01/19/2025 8:30 AM EDT Telemedicine [facility] [address] [place] [address] Porfirio Goodman MD [address] [place] [address] documented as of this encounter Visit Diagnoses Diagnosis Class 3 severe obesity due to excess calories with serious comorbidity and body mass index (BMI) of 45.0 to 49.9 in adult- Primary documented in this encounter Care Teams Optimization Engineer Relationship Specialty Start Date End Date Porfirio Goodman MD [address] [place] [address] PCP - General Internal Medicine 12/05/19 Amber Mittal Sales Support ConsultantSenior Front End Developer 04/20/24 documented as of this encounter
--- OUTSIDE RECORDS SUMMARY | 2024-12-10 15:28 | XMS_ITS | Data Portability ---
Author Organization [place] - [facility], Allergy Address [address] [address] Assessment Encounter Date Assessment Date Assessment LastModified [...] Organization Details Last Modified Time Details Appointments Hearing Test 2024 01:30P M Hearing Test Not available Not available Not available Establish ed 15 2024 02:15P M TU GARCIA MD Not available Not available Not available Lab None recorded. Referral None recorded. Procedures None recorded. Surgeries None recorded. Imaging MRI, brain + internal auditory canal, w/wo contrast - MRI, BRAIN + INTERNAL AUDITORY CANAL, W/WO CONTRAST. hx of menieres 2023 024 [facility] ([facility]), [address] [facility], [place], [address], 01/01/2024 09:47:00 Medication Orders meclizine 25 mg tablet 2023 024 [id number], [address] , [place], [place], [id number], 12/28/2023 12:17:08 Patient TargetsNo targets recorded. Patient InstructionsNo instructions recorded. Reason for Referral None Reported. Results Created Date Observation Date Name Description Value Unit Range Abnormal Flag Note LastModifiedBy Organization Detail LastModifiedTime 01/01/20 24 12/31/2023 MRI, brain + brain stem, w/wo contr ast [facility] Access ion Number : [id number] Patien t Name: Anton ndiaye, William [facility] Medica l Record Number : [id number] Date of : 1974 Date of Exam: 2023 Referr ing Physic brittani: Tu Garcia Ear Nose [address] [place] [address] Exam: MR Brain (C-/C+ ) CPT 97857 Room Descri ption: [facility] 3.0T MR Brain (C-/C+ ) CPT 95791 INDICA TION / CLINIC AL QUESTI ON: Sensor ineura l hearin g loss, bilate ral, , MRI, BRAIN + CAMP BOSS AL AUDITO RY CANAL, W/WO CONTRA ST. [...] or abnorm al enhanc ement in the international trade analyst al audito ry canals or cerebe llopon [...] onical ly Signed By: Augusta Franks MD [facility] ([facility]) [address] [facility], [place], [address], 01/04/2024 15:27:15 01/06/20 24 audio gram No observ ation record ed. BARCODE Not Available 2023 11:43:06 Result Notes None recorded. Problems Name Problem SNOMED Code Status Onset Date Resolution Date Notes Provider Name and Address Organization Details Recorded Time Sensorine ural hearing loss of bilateral ears 280349164 Active 2014 Sensorineu ral HL, bilateral; Note: Date Diagnosed: 03/21/2015 4:37 PM (389.18) Sensorin eural hearing loss, bilateral; Note: Date Diagnosed: 03/21/2015 4:37 PM (H90.3) Not Available [facility] 4 03:09:32 Hypertrop hy of tonsils 38455110 Active 2017 Hypertroph y of tonsils; Note: Date Diagnosed: 11/12/2017 12:00 PM (J35.1) Not Available [facility] 4 03:09:30 Leukocyto sis 769036814 Active 2017 Leukocytos is, unspecifie d; Note: Date Diagnosed: 11/12/2017 12:01 PM (D72.829) Not Available [facility] 4 03:09:32 Gastroeso phageal reflux disease without esophagit is 959513212 Active 2017 Gastro-eso phageal reflux disease without esophagiti s; Note: Date Diagnosed: 11/12/2017 12:00 PM (K21.9) Not Available [facility] 4 03:09:31 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 ? 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 ? ?re's disease 86969541 Active 2023 TU GARCIA MD [address] [facility],[place] [address], [place], [address] , [place] - [facility] [place] 4 12:16:21 Problem Notes None recorded. Procedures Surgical History Date Name Laterality Status Provider Name and Address Organization Details Recorded Time 12/28/2023 Comp Audio with Tymps - 40931 & 42349 completed ALFONSO MILLS [address] [facility],[place] [address], [place], [address], [place] - [facility] [place] 12/28/2023 11:47:19 Imaging Results Imaging Date Name Status LastModified by Organiz ation Details LastModified Time 12/31/2023 MRI, brain + brain stem, w/wo contrast completed [facility] ([facility]) [address] [facility], [place], [address], 01/04/2024 15:27:15 01/06/2024 audiogram completed BARCODE Information no t available 01/06/2024 11:43:06 Procedure Notes None recorded. Medical Equipment None Reported. Allergies Allergen ID Allergen Name Allergen Category Reaction Reaction Severity Criticality Documentation Date Start Date Code Code System Note Provider Name and Address Organization Details Recorded Time 301021 Bactrim medicatio n other Not available Not available 12/08/2023 73023 9 RxNorm React ion: unkno wn, unspe cifie d;; Not Available [facility] 4 01:14:34 092179 hydromorp katrin medicatio n other Not available Not available 12/08/2023 3423 RxNorm React ion: unkno wn, unspe cifie d;; Not Available [facility] 4 01:14:35 418928 penicilli n V potassium medicatio n other Not available Not available 12/08/2023 02706 5 RxNorm React ion: unkno wn, unspe cifie d;; Not Available [facility] 4 01:14:36 266267 azithromy farhan medicatio n other Not available Not available 12/08/2023 95847 RxNorm React ion: unkno wn, unspe cifie d;; Not Available [facility] 4 01:14:37 Medications Name Sig Start Date Stop Date Status Note LastModified by Organization Details LastModified Time celecoxib 200 mg capsule active Not Available Not Available Not Available cetirizine 10 mg tablet TAKE 1 TABLET BY MOUTH EVERY DAY NEEDED FOR ALLERGIES active Not Available Not Available No t Available ibuprofen 800 mg tablet 2014 active Medicatio n ID: [id number] Dur ation Value: 5 Brand Name: ibuprofen Send Method: E-Prescri bed Subs Allowed: subs OK Medica tionGener icName: ibuprofen Not Available Not Available Not Available prochlorpe razine maleate 5 mg tablet 2014 active Medicatio n ID: [id number] Dur ation Value: 5 Brand Name: prochlorp erazine maleate S end Method: E-Prescri bed Subs Allowed: subs OK Medica tionGener icName: prochlorp erazine maleate Not Available Not [...] d release 2014 active Medicatio n ID: [id number] Dur ation Value: 30 Brand Name: propranol ol Send Method: E-Prescri bed Subs Allowed: subs OK Medica tionGener icName: propranol ol Not Available Not Available [...] mg tablet 2014 active Medicatio n ID: [id number] Dur ation Value: 30 Brand Name: sertralin [...] sublingual tablet 2014 active Medicatio n ID: [id number] Dur ation Value: 30 Brand Name: cyanocoba patrizia (vitamin B-12) Sen d Method: E-Prescri bed Subs Allowed: subs OK Medica tionGener icName: cyanocoba patrizia (vitamin B-12) Not Available Not Available Not Available hydrochlor othiazide 25 mg tablet active Not Available Not Available Not Available diclofenac sodium 50 mg tablet,del ayed release 2014 active Medicatio n ID: [id number] Dur ation Value: 30 Brand Name: diclofena c sodium Se nd Method: E-Prescri bed Subs Allowed: subs OK Medica tionGener icName: diclofena c sodium Not Available Not Available Not Available Vitamin D2 1,250 mcg (50,000 unit) capsule 2014 [place] ID: [id number] Dur ation Value: 28 Brand Name: Vitamin [...] Updated DateTime 12/28/2023 160.02 cm 45.2 kg/m2 707357.05 g Shannan Patrick [place] - [facility] 12/28/2023 12:07:32 Social History None recorded. 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 35112607 H81.03 Health Concerns Section Related Observation LastModified by Organization Detai ls LastModified Time None Recorded Concern Status LastModified by Organization Details LastModified Time None Recorded Advance Directives Directive None Recorded Payers Insurance Date Sequence Insurance Name Policy Number Policy Williamson Covered Member ID Williamson Member ID Guarantor Name 12/28/2023 1 [place] [facility] Elyzabeth A [place] [id number] Elyzabeth A Yrn 01/07/2024 1 [place] [facility] Elyzabeth A Yrn [id number] Elyzabeth A Yrn 12/28/2023 1 [place] Elyzabeth [place] [id number] Elyzabeth A [place] 11/17/2024 1 [place] [facility] Elyzabeth A [place] [id number] Elyzabeth A [place] Notes Date Note Type Note Provider Name [...] sleeve and takes pedialyte TU GARCIA MD [address] [place] [address], [place], [address], [place] - [facility] 12/28/2023 12:19:04 OBGyn Episode No OBEpisode recorded.
--- OUTSIDE RECORDS SUMMARY | 2024-12-10 15:28 | XMS_ITS | Encounter Summary ---
Author Organization [employer] Address [address] [facility] 7 [place] [address] Care Team Providers Care Sheet Sewer Name Role Phone Porfirio Goodman MD Primary Care Prov ider Reason for Visit * Reason Onset Date Comments Medication Question 04/27/2024 Encounter Details Date Type Department Care Team ([facility] Contact Info) Description 04/27/2024 Telephone [facility] MED & PEDS [address] [place] [address] Porfirio Goodman MD [address] [place] [address] Medication Question Social History Tobacco Use Types [...] Pascale Burr - 05/03/2024 10:48 AM EDT Arnoldo Baer, patient needs an order for a home sleep study. * Telephone Encounter - Debbi Paula RN - 04/28/2024 9:15 AM EDT TC to [facility] pharmacy, pharmacist states somehow wegovy appeared in their system as no longer having refills. Med queued to covering provider. * Telephone Encounter - Halima Rogers - 04/27/2024 4:11 PM EDT Tc from pt requesting to speak to nurse regarding medication Semaglutide-Weight Management (Wegovy)0.5 MG/0.5ML solution auto-injector. Refill was denied. Contact pt at [phone] documented in this encounter Plan of Treatment Upcoming Encounters Date Type Department Care Team (Late st Contact Info) Description 01/19/2025 8:30 AM EDT Telemedicine [facility] MED & PEDS [address] [place] [address] Porfirio Goodman MD [address] [place] [address] documented as of this encounter Visit Diagnoses Not on filedocumented in this encounter Care Teams Sheet Sewer Relationship Specialty Start Date End Date Porfirio Goodman MD [address] [place] [address] PCP - General Internal Medicine 12/05/19 Amber Mittal Life ScientistsRug Underlay Machine Operator 04/20/24 documented as of this encounter
--- OUTSIDE RECORDS SUMMARY | 2024-12-10 15:28 | XMS_ITS | Encounter Summary ---
Author Organization [employer] Address 75 [facility] 7 [place] [address] Care Team Providers Care Riveter Hand Name Role Phone Porfirio Goodman MD Primary Care Prov ider Reason for Visit * Reason Comments Med Refill Encounter Details Date Type Department Care Team ([facility] st Contact Info) Description 04/27/2024 Refill [facility] CH[facility] MED & PEDS [address] [place], [place] [phone] Porfirio Goodman MD [address] [place] [address] Social History Tobacco Use Types Packs/Day Years [...] Info) Description 01/19/2025 8:30 AM EDT Telemedicine [facility] MED & PEDS [address] [place] [address] Porfirio Goodman MD [address] [place] [address] documented as of this encounter Visit Diagnoses Not on filedocumented in this encounter Care Teams Riveter Hand Relationship Specialty Start Date End Date Porfirio Goodman MD [address] [place] [address] PCP - General Internal Medicine 12/05/19 Amber Mittal Egg PackerSenior Counsel 04/20/24 documented as of this encounter
--- OUTSIDE RECORDS SUMMARY | 2024-12-10 15:28 | XMS_ITS | Encounter Summary ---
Author Organization [employer] Address [address] [facility] 7 [place] [address] Care Team Providers Care Firefighting Equipment Specialist Name Role Phone Porfirio Goodman MD Primary Care Prov ider Encounter Details Date Type Department Care Team ([facility] st Contact Info) Description 06/05/2023 Orders Only [facility] CHC MED & PEDS [address] [place], [place] [phone] Ambika Webster MD [address] [place] [address] Essential hypertension (Primary Dx) Social History Tobacco [...] Info) Description 01/19/2025 8:30 AM EDT Telemedicine [facility] MED & PEDS [address] [place], [place] [phone] Porfirio Goodman MD [address] [place] [address] documented as of this encounter Visit Diagnoses Diagnosis Essential hypertension- Primary Unspecified essential hypertension documented in this encounter Care Teams Firefighting Equipment Specialist Relationship Specialty Start Date End Date Porfirio Goodman MD [address] [place] [address] PCP - General Internal Medicine 12/05/19 Amber Mittal Installer Interior AssembliesBanquet Pilot 04/20/24 documented as of this encounter
--- OUTSIDE RECORDS SUMMARY | 2024-12-10 15:28 | XMS_ITS | Encounter Summary ---
Author Organization [employer] Address [address] [place] [address], [place] [address] Care Team Providers Care Type Bar And Segment Assembler Name Role Phone Porfirio Goodman MD Primary Care Prov ider Reason for Visit * Reason Comments Med Refill Encounter Details Date Type Department Care Team ([facility] Contact Info) Description 03/17/2023 Refill [facility] PEDS [address] [place], [place] [phone] Porfirio Goodman MD [address] [place] [address] Post-nasal drip Social History Tobacco Use Types [...] Upcoming Encounters Date Type Department Care Team ([facility] Contact Info) Description 01/19/2025 8:30 AM EDT Telemedicine [facility] MED & PEDS [address] [place], [place] [phone] Porfirio Goodman MD [address] [place] [address] documented as of this encounter Visit Diagnoses Diagnosis Post-nasal drip Postnasal drip documented in this encounter Care Teams Type Bar And Segment Assembler Relationship Specialty Start Date End Date Porfirio Goodman MD [address] [place] [address] PCP - General Internal Medicine 12/05/19 Amber Mittal Transportation DispatcherManager Port 04/20/24 documented as of this encounter
--- OUTSIDE RECORDS SUMMARY | 2024-12-10 15:28 | XMS_ITS | Encounter Summary ---
Author Organization [employer] Address [address] [facility] 7 [place] [address] Care Team Providers Care Inspector And Mender Name Role Phone Porfirio Goodman MD Primary Care Prov ider Reason for Visit * Reason Onset Date Comments Call Back Request 07/24/2023 Encounter Details Date Type Department Care Team ([facility] [address] Contact Info) Description 07/24/2023 Telephone [facility] CH[facility] MED & PEDS [address] [place] [address] Porfirio Goodman MD [address] [place] [address] Call Back Request Social History Tobacco Use [...] Info) Description 01/19/2025 8:30 AM EDT Telemedicine [facility] MED & PEDS [address] [place] [address] Porfirio Goodman MD [address] [place] [address] documented as of this encounter Visit Diagnoses Not on filedocumented in this encounter Care Teams Inspector And Mender Relationship Specialty Start Date End Date Porfirio Goodman MD [address] [place] [address] PCP - General Internal Medicine 12/05/19 Amber Mittal Backside GrinderTemporary Administrative Assistant 04/20/24 documented as of this encounter
--- OUTSIDE RECORDS SUMMARY | 2024-12-10 15:28 | XMS_ITS | Encounter Summary ---
Author Organization [employer] Address 75 [facility] 7t [place] [address] Care Team Providers Care Beverage Manager Name Role Phone Porfirio Goodman MD Primary Care Prov ider Encounter Details Date Type Department Care Team ([facility] st Contact Info) Description 09/16/2024 Telephone [facility] MEDICINE [address] [place] [address] Porfirio Goodman MD [address] [place] [address] Social History Tobacco Use Types Packs/Day Years [...] Telemedicine [facility] MED & PEDS [address] [place] [address] Porfirio Goodman MD [address] [place] [address] documented as of this encounter Visit Diagnoses Not on filedocumented in this encounter Care Teams Beverage Manager Relationship Specialty Start Date End Date Porfirio Goodman MD [address] [place] [address] PCP - General Internal Medicine 12/05/19 Amber Mittal Picket Labor UnionSenior Software Analyst 04/20/24 documented as of this encounter
--- OUTSIDE RECORDS SUMMARY | 2024-12-10 15:28 | XMS_ITS | Encounter Summary ---
Author Organization [employer] Address 75 [facility] 7 [place] [address] Care Team Providers Care Personal Injury Litigation Paralegal Name Role Phone Porfirio Goodman MD Primary Care Prov ider Reason for Visit * Reason Comments Med Refill Encounter Details Date Type Department Care Team ([facility] st Contact Info) Description 04/27/2024 Refill [facility] CHC MED & PEDS [address] [place], [place] [phone] Porfirio Goodman MD [address] [place] [address] Social History Tobacco Use Types Packs/Day Years [...] [facility] MED & PEDS [address] [place] [address] Porfirio Goodman MD [address] [place] [address] documented as of this encounter Visit Diagnoses Not on filedocumented in this encounter Care Teams Personal Injury Litigation Paralegal Relationship Specialty Start Date End Date Porfirio Goodman MD [address] [place] [address] PCP - General Internal Medicine 12/05/19 Amber Mittal Dumpster OperatorTimber Watchman 04/20/24 documented as of this encounter
--- OUTSIDE RECORDS SUMMARY | 2024-12-10 15:28 | XMS_ITS | Clinical Summary ---
Author Organization [facility] Address [address] [place] [address] Care Team Providers Care Fur Tanner Name Role Phone Porfirio Goodman Primary Care Provide r Surgical History Surgery Date Site/Laterality Comments OTHER SURGICAL HISTORY PROCEDURE: LA SURGICAL ARTHROSCOPY LAURO W/CORACOACRM LIGM RLS; COMMENT: both shoulders GASTRIC BYPASS PROCEDURE: GASTRIC BYPASS FOR OBESIT; COMMENT: gastric sleeve OTHER SURGICAL HISTORY PROCEDURE: ANESTHESIA FOR SECTION OTHER SURGICAL HISTORY 08/08/2022 PROCEDURE: LA ARTHRODESIS SI JOINT PERCUTANEOUS/MIN INVASIVE; COMMENT: Right [...] Cervical Cancer Screening: P ap Smear 1996 Colorectal Cancer Screening: Colonoscopy 07/06/2022 Depression Screening 07/06/2022 HIV Screening 07/06/2022 Hepatitis C Screening 07/06/2022 Social Influencers of Health Screening 07/06/2022 COVID-19 Vaccine (1 - 2023-2 5 season) 2024 Influenza Vaccine (Season Ended) 2025 05/14/20 18 DTaP,Tdap,and Td Vaccines (2 - Td or Tdap) 04/26/2028 04/26/2018 HIB Vaccines Aged Out No longer eligi [...] age to complete this topic Care Teams Fur Tanner Relationship Specialty Start Date End Date Porfirio Goodman [address] [place], [place] PCP - General Internal Medicine 04/02/22
--- OUTSIDE RECORDS SUMMARY | 2024-12-10 15:28 | XMS_ITS | Encounter Summary ---
Author Organization [employer] Address 75 [facility] 7 [place] [address] Care Team Providers Care Director Of Clinical Trials Name Role Phone Porfirio Goodman MD Primary Care Prov ider Reason for Visit * Reason Onset Date Comments Appointment Request 07/15/2023 Encounter Details Date Type Department Care Team ([facility] st Contact Info) Description 07/15/2023 Telephone [facility] MEDICINE [address] [place] [address] Porfirio Goodman MD [address] [place] [address] Appointment Request Social History Tobacco Use Types [...] Info) Description 01/19/2025 8:30 AM EDT Telemedicine [facility] MED & PEDS [address] [place] [address] Porfirio Goodman MD [address] [place] [address] documented as of this encounter Visit Diagnoses Not on filedocumented in this encounter Care Teams Director Of Clinical Trials Relationship Specialty Start Date End Date Porfirio Goodman MD [address] [place] [address] PCP - General Internal Medicine 12/05/19 Amber Mittal Casino DealerMaterials Planner/Production Planner 04/20/24 documented as of this encounter
--- OUTSIDE RECORDS SUMMARY | 2024-12-10 15:28 | XMS_ITS | Encounter Summary ---
Author Organization [employer] Address 75 [facility] 7 [place] [address] Care Team Providers Care Deposit Refund Clerk Name Role Phone Porfirio Goodman MD Primary Care Prov ider Reason for Visit * Reason Onset Date Comments Nurse Triage 04/27/2023 Encounter Details Date Type Department Care Team ([facility] st Contact Info) Description 04/27/2023 Telephone [facility] CHC MED & PEDS [address] [place] [address] Porfirio Goodman MD [address] [place] [address] Nurse Triage Social History Tobacco Use Types [...] is associated with that now. ASK apt [facility] 140pm 04/27/23 . Pt agrees with [...] like being stabbed. Please contact pt at [phone] documented in this encounter Plan of Treatment Upcoming Encounters Date Type Department Care Team (Late st Contact Info) Description 01/19/2025 8:30 AM EDT Telemedicine [facility] MED & PEDS [address] [place] [address] Porfirio Goodman MD [address] [place], [place] [phone] documented as of this encounter Visit Diagnoses Not on filedocumented in this encounter Care Teams Deposit Refund Clerk Relationship Specialty Start Date End Date Porfirio Goodman MD [address] [place] [address] PCP - General Internal Medicine 12/05/19 Amber Mittal Roller Die Cutting Machine OperatorReference Archivist 04/20/24 documented as of this encounter
--- OUTSIDE RECORDS SUMMARY | 2024-12-10 15:28 | XMS_ITS | Encounter Summary ---
Author Organization [employer] Address [address] [facility] 7 [place] [address] Care Team Providers Care Commuter Train Operator Name Role Phone Porfirio Goodman MD Primary Care Prov ider Reason for Visit * Reason Comments Med Refill Encounter Details Date Type Department Care Team ([facility] st Contact Info) Description 04/26/2024 Refill [facility] CHC MED & PEDS [address] [place], [place] [phone] Porfirio Goodman MD [address] [place] [address] Social History Tobacco Use Types Packs/Day Years [...] Info) Description 01/19/2025 8:30 AM EDT Telemedicine [facility] MED & PEDS [address] [place] [address] Porfirio Goodman MD [address] [place] [address] documented as of this encounter Visit Diagnoses Not on filedocumented in this encounter Care Teams Commuter Train Operator Relationship Specialty Start Date End Date Porfirio Goodman MD [address] [place] [address] PCP - General Internal Medicine 12/05/19 Amber Mittal [employer] Artistic DirectorVideo Production Coordinator 04/20/24 documented as of this encounter
[2024-12-10 16:24] VITALS: BP 143/86; PULSE 73; RESP 16; TEMP 37; O2SAT 99
== END 2024-12-10 16:25 | disposition home or self-care (01) ==
PROVIDERS: Emergency Provider Emergency Medicine Emergency Medical Services; PCP Internal Medicine
DX: S93.401A Sprain of unspecified ligament of right ankle, initial encounter (principal); W10.9XXA Fall (on) (from) unspecified stairs and steps, initial encounter; Y93.9 Activity, unspecified; Y92.9 Unspecified place or not applicable; Y99.9 Unspecified external cause status; M25.571 Pain in right ankle and joints of right foot; Z79.899 Other long term (current) drug therapy
CPT/HCPCS: 73590; 73600; 73620; 99283; 99284

== ENCOUNTER → 2024-12-10 14:32 | Outpatient (BNV) | payer MEDICAID, SELFPAY | PROVIDERS: Emergency Provider Emergency Medicine Emergency Medical Services; PCP Internal Medicine; Visit Provider Radiology Diagnostic Radiology | DX: M79.604 Pain in right leg (principal); M25.571 Pain in right ankle and joints of right foot; M79.671 Pain in right foot; W19.XXXA Unspecified fall, initial encounter | CPT/HCPCS: 73590; 73600; 73620 ==

== ENCOUNTER → 2024-12-25 10:17 | Outpatient (BNV) | payer MEDICAID, SELFPAY | PROVIDERS: PCP Internal Medicine; Visit Provider Radiology Diagnostic Radiology | DX: R42 Dizziness and giddiness (principal) | CPT/HCPCS: 70551 ==

== ENCOUNTER 2024-12-25 10:21 | Outpatient (REF) | payer MEDICAID, SELFPAY ==
--- NOTE | ~2024-12-25 | MR_ITS ---
EXAMINATION: MR BRAIN WITHOUT IV CONTRAST HISTORY: worsening dizziness TECHNIQUE: Sagittal T1, and axial T1, FLAIR, T2, gradient echo, and diffusion weighted MR images of the brain were obtained. In addition, high resolution T2-weighted images were obtained through the internal auditory canals. COMPARISON: Correlation is made with an unenhanced CT dated 04/23/2022. FINDINGS: The brain parenchyma is unremarkable, demonstrating normal bah/white differentiation. No foci of abnormal signal intensity are identified. The ventricular system is normal in size and configuration. There is no mass effect or midline shift. No intra or extra-axial fluid collections are identified. There are no foci of restricted diffusion. Normal vascular flow voids are noted in the basilar and carotid arteries. The visualized paranasal sinuses are clear. MR/MR head/brain wo con IMPRESSION: Unremarkable unenhanced MRI of the brain. Electronically signed by: Martell Cardoza MD 12/26/2024 07:37 AM EDT
== END 2024-12-25 10:22 | disposition home or self-care (01) ==
LOC: HO.MRI 10:21
PROVIDERS: PCP Internal Medicine; Visit Provider Family Medicine
DX: R42 Dizziness and giddiness (principal)
CPT/HCPCS: 70551

== ENCOUNTER 2025-01-03 12:09 | Outpatient (REF) | payer MEDICAID, SELFPAY ==
[2025-01-03 14:01] LABS: Uric Acid 2.7 mg/dL (2.4-5.7)
--- OUTSIDE RECORDS SUMMARY | 2025-01-03 14:23 | XMS_ITS | Encounter Summary ---
Author Organization [email or web address] Address [address] [facility] [address] [place] [address] Care Team Providers Care Molder Setter Name Role Phone Porfirio Goodman MD Primary Care Prov ider Luli Sosa RN Unavailable [phone] Marino Wiseman Unavailable Reason for Visit * Reason Comments Med Refill Encounter Details Date Type Department Care Team ([facility] st Contact Info) Description 12/17/2022 Refill [facility] CH[facility] MED & PEDS [address] [place], [place] [phone] Porfirio Goodman MD [address] [place], [place] [phone] Post-nasal drip Social History Tobacco Use Types [...] 01/19/2025 8:30 AM EDT Telemedicine [facility] MED & PEDS [address] [place] [address] Porfirio Goodman MD [address] [place] [address] documented as of this encounter Visit Diagnoses Diagnosis Post-nasal drip Postnasal drip documented in this encounter Care Teams Molder Setter Relationship Specialty Start Date End Date Porfirio Goodman MD [address] [place] [address] PCP - General Internal Medicine 12/05/19 Luli Sosa RN [address] [place] [address] Registered Nurse Family Medicine 12/12/24 12/12/24 Marino Wiseman 12/12/24 12/12/24 Amber Mittal Passenger Service ManagerSocial Insurance Adviser 04/20/24 documented as of this encounter
[2025-01-04 05:03] LABS: Lyme Abs Screen <0.90 index
== END 2025-01-03 12:10 | disposition home or self-care (01) ==
LOC: HO.HHCL 12:09
PROVIDERS: Visit Provider Family Medicine
DX: M25.432 Effusion, left wrist (principal)
CPT/HCPCS: 36415; 84550; 86617; 86618

== ENCOUNTER 2025-01-09 15:48 | Emergency (ER) | payer MEDICAID, SELFPAY ==
--- NOTE | ~2025-01-09 | XR_ITS ---
EXAMINATION: XR WRIST, LEFT CLINICAL INFORMATION: fall COMPARISON: None available. TECHNIQUE: PA, lateral, and oblique views of the left wrist. FINDINGS: The bones and soft tissues are normal. No fracture. Alignment is anatomic with normal joint spaces. No erosions or abnormal soft tissue calcifications. XR/XR wrist LT min 3V IMPRESSION: Normal left wrist. Electronically signed by: Otilio Campos MD 01/09/2025 04:31 PM EDT
[2025-01-09 16:04] VITALS: BP 116/69; PULSE 94; RESP 16; TEMP 36.4; O2SAT 98; BMI 38.1
--- NOTE | 2025-01-09 16:10 | ED_ITS ---
HPI - Extremity Problem General Chief complaint: Extremity Injury, Upper Stated complaint: left wrist inj Time Seen by Provider: 01/09/25 16:44 Source: patient Mode of arrival: ambulatory Limitations: no limitations History of Present Illness ED Provider: Amber De Dios PA-C HPI Narrative: Patient is a 49 year old assigned female at with a history of PCOS and asthma presenting to the emergency department today with left wrist pain. Patient states that a few weeks ago she fell over her some slippers and landed on her left hand / wrist. Patient denies any head strike from the incident, dizziness, lightheadedness, abdominal pain, nausea, vomiting, fever, chills, blurry vision, double vision, loss of vision, chest pain, difficulty breathing, shortness of breath, back pain, night sweats, pain with urination, increased urinary frequency, increased urinary urgency, blood in her urine or stool, syncope or a near syncopal episode, bowel incontinence, bladder incontinence, or any other complaints at this time. MD Complaint: extremity pain Onset (ago): week(s) Relieving factors: nothing Exacerbating factors: range of motion Associated symptoms: denies other symptoms Related Data Home Medications ?Medication ?Instructions ?Recorded ?Confirmed cetirizine 10 mg capsule (All Day 10 mg PO DAILY PRN Allergy Symptoms 11/14/20 09/06/24 Allergy (cetirizine)) cholecalciferol (vitamin D3) 125 125 mcg PO DAILY 11/14/20 09/06/24 mcg (5,000 unit) capsule vitamin B complex (B 1 tab PO DAILY 11/14/20 09/06/24 Complex-Vitamin B12 tablet) albuterol sulfate 90 mcg/actuation 2 puff PO Q4-6H PRN Shortness Of 01/14/22 09/06/24 aerosol inhaler (ProAir HFA) Breath Or Wheezing omeprazole 20 mg capsule,delayed 20 mg PO DAILY 01/14/22 09/06/24 release amlodipine 10 mg tablet 10 mg PO DAILY 12/04/22 09/06/24 carvedilol 3.125 mg tablet 3.125 mg PO BID 12/04/22 09/06/24 fluticasone propionate 110 2 puff inhalation 12/04/22 09/06/24 mcg/actuation HFA aerosol inhaler (Flovent HFA) fluticasone propionate 50 1 - 2 spray intranasal QAM 12/04/22 09/06/24 mcg/actuation nasal spray,suspension polyethylene glycol 3350 17 17 g PO DAILY PRN Constipation 12/04/22 09/06/24 gram/dose oral powder (Miralax) iron dextran IV 12/23/22 09/06/24 diazepam 5 mg tablet (Valium) 5 mg PO TID PRN Anxiety 09/02/23 09/06/24 methocarbamol 750 mg tablet 750 mg PO QID 09/02/23 09/06/24 tirzepatide (weight loss) 2.5 2.5 mg subcut QWEEK 09/06/24 09/06/24 mg/0.5 mL subcutaneous pen injector (Zepbound) Previous Rx's ?Medication ?Instructions ?Recorded dicyclomine 20 mg tablet 20 mg PO QID PRN abdominal pain 06/16/20 #20 tabs docusate sodium 100 mg capsule 100 mg PO BID PRN Constipation #14 09/03/21 (Colace) caps ibuprofen 600 mg tablet 600 mg PO TID PRN pain #14 tabs 02/13/22 bisacodyl 5 mg tablet,delayed 10 mg (2 x 5 mg) PO BEDTIME #14 11/17/22 release tabs hydromorphone 2 mg tablet 1 mg (1/2 x 2 mg) PO Q12H 7 days 09/28/23 (Dilaudid) #7 tabs meloxicam 15 mg tablet 15 mg PO DAILY #30 tabs 10/12/23 tramadol 50 mg tablet 50 mg PO Q12H PRN pain #30 tabs 11/05/23 nitrofurantoin 100 mg PO Q12H 7 days #14 caps 03/07/24 monohydrate/macrocrystals 100 mg capsule (Macrobid) acetaminophen 650 mg 650 mg PO Q8H PRN pain #30 tabs 06/29/24 tablet,extended release (Tylenol 8 Hour) oxycodone 5 mg tablet 5 mg PO Q6H PRN severe pain (scale 06/29/24 score 7-10) #7 tabs Allergies Allergy/AdvReac Type Severity Reaction Status Date / Time amoxicillin Allergy Severe DIFFICULTY Verified 01/09/25 16:06 BREATHING clavulanic acid Allergy Severe DIFFICULTY Verified 01/09/25 16:06 BREATHNG nabumetone Allergy Severe Depression Verified 01/09/25 16:06 Penicillins Allergy Severe Shortness Verified 01/09/25 16:06 of Breath, itching sulfamethoxazole Allergy Severe DIFFICULTY Verified 01/09/25 16:06 BREATHING, anaphylaxis trimethoprim Allergy Severe DIFFICULTY Verified 01/09/25 16:06 BREATHING, anaphylaxis azithromycin Allergy Intermediate DIFFICULTY Verified 01/09/25 16:06 BREATHING hydrocodone Allergy Intermediate DIFFICULTY Verified 01/09/25 16:06 BREATHING levofloxacin Allergy Intermediate AGITATION-CAN Verified 01/09/25 16:06 TAKE IV, BUT NOT PO ondansetron [From Zofran] Allergy Intermediate r/t Verified 01/09/25 16:06 prolonged QT rizatriptan [RIZATRIPTAN] Allergy Intermediate HIVES Verified 01/09/25 16:06 diphenhydramine AdvReac Unknown told to Verified 01/09/25 16:06 [From BENADRYL] avoid From REGLAN Allergy Severe DYSPHORIA Uncoded 02/11/24 10:38 Review of Systems Constitutional: Constitutional: Reports no additional constitutional complaints, Denies chills, Denies fever(s) and Denies night sweats Eyes: Eyes: Reports no additional eye complaints, Denies blurry vision, Denies change in vision, Denies diplopia, Denies eye discharge, Denies loss of vision and Denies eye pain ENT: Denies dizziness Cardiovascular: Cardiovascular: Reports no additional cardiovascular complaints, Denies chest pain, Denies lightheadedness, Denies Loss of Consciousness and Denies dyspnea Respiratory: Respiratory: Reports no additional respiratory complaints and Denies dyspnea Gastrointestinal: Gastrointestinal: Reports no additional gastrointestinal complaints, Denies abdominal pain, Denies melena, Denies hematochezia, Denies change in bowel habits and Denies change in stool character Genitourinary: Genitourinary: Denies hematuria, Denies urinary frequency, Denies dysuria, Denies urinary incontinence, Denies urinary hesitancy and Denies urinary urgency Musculoskeletal: Musculoskeletal: Reports no additional musculoskeletal complaints, Denies numbness and Denies tingling Comments: left wrist pain Neurologic: Denies dizziness, Denies loss of vision, Denies numbness and Denies tingling Psychiatric: Psychiatric: Reports no additional psychiatric complaints Endocrine: Endocrine: Reports no additional endocrine complaints Hematologic/Lymphatic: Hematologic/Lymphatic: Reports no additional hematologic/lymphatic complaints Allergic/Immunologic: Allergic/Immunologic: Reports no additional allergic/immunologic complaints PMFSH Past Medical History Attestation statement: The following information was validated with the patient. Source: old records reviewed and nursing notes reviewed Medical History Hx MRSA infection (~2019) Wears glasses Wears hearing aid in both ears Leukocytosis Ear piercing [place] (obstructive sleep apnea) Personal history of COVID-19 Renal cyst Anemia Prolonged QT interval Murmur, cardiac Thyroid condition Essential hypertension Sacroiliac joint dysfunction of right side Asthma PCOS (polycystic ovarian syndrome) Surgical History Hx of arthroscopy of left knee (09/04/23) S/P fusion of sacroiliac joint (12/23/22) History of S/P left knee arthroscopy Status post arthroscopy of shoulder H/O gastric sleeve History of ankle surgery History of laparoscopic partial gastrectomy Social History Social History Household Members: Spouse, Family and Children Housing: House Are you a primary rn patient care to a significant other at home: Yes (5 year old daughter) Do you presently have visiting nurse or other home services: No Alcohol intake: former Patient Tobacco Use Status: Never used Tobacco e-Cigarette/Vaping Use: Never Used Advance Directives: No Advance Directives Information Provided: No Physical Exam Vital Signs: Vital Signs: Last Vital Signs Temp 97.6 F 01/09/25 16:04 Pulse 94 01/09/25 16:04 Resp 16 01/09/25 16:04 BP 116/69 01/09/25 16:04 Pulse Ox 98 01/09/25 16:04 O2 Del Method Room Air 01/09/25 16:04 BMI result Body Mass Index 38.1 Const: General: cooperative, no acute distress, alert and awake Nutritional Appearance: well nourished Orientation/consciousness: patient oriented x3 HEENT: Head: Yes normal to inspection and Yes atraumatic Ears: hearing grossly normal bilaterally and external ears normal General nose exam: Normal external nose present, no nasal discharge noted and no epistaxis Face and sinus: Yes normal facial exam, No abrasion and No laceration Mouth: Normal oral and palatal mucosa present, no drooling and no muffled voice Eyes: General: appearance normal, both eyes and all related structures Periorbital: periorbital findings normal Eyelids: Yes eyelids normal Conjunctivae: conjunctivae normal Pupils: Equal, round and reactive pupils present EOM: EOMs intact bilaterally Neck: Neck: Yes normal visual inspection, Yes full ROM and Yes no lymphadenopathy Resp: Effort & Inspection: normal respiratory effort and able to speak in complete sentences Neuro: General: patient oriented x3, moves all extremities and CN's II-XI intact bilaterally Cranial nerves: Yes Equal, round and reactive pupils present Cognition (Neuro): normal cognition Extrem: General: Yes normal to inspection, Yes full ROM and Yes capillary refill normal Psych: Appearance: grossly normal Mental Status: mental status grossly normal Affect: normal affect Attitude: cooperative Thought process: Normal thought process present Thought content: Normal thought content present Insight: Good insight present (Psych) Course Course Course Narrative: RME performed by Amber De Dios PA-C. Patient is a 49 year old assigned female at presenting to the emergency department with left wrist pain. Patient states she fell a few weeks ago and has had left wrist pain ever since. Detailed physical exam and review of systems are deferred to the demolition crane operator. Imaging ordered. Patient placed back in the waiting room pending room availability and results. Medical Decision Making Medical Decision Making MDM Narrative: Patient is a 49 year old assigned female at with a history of PCOS and asthma presenting to the emergency department today with left wrist pain. Patient's physical exam was unremarkable. Patient's left wrist x-ray showed no acute process. I explained my physical exam findings as well as all test results to the patient. I answered all questions asked by the patient. I recommended the patient continue wearing the over the counter brace she currently has on her left wrist. I stressed the importance of the patient taking her medication as directed (either prescribed or as the over the counter packaging recommends). I stressed the importance of the patient following up with her primary care provider and an orthopedic provider. I stressed the importance of the patient returning to the emergency department immediately if her symptoms were to worsen or if she were to develop any dizziness, shortness of breath, difficulty breathing, chest pain, blurry vision, loss of vision, nausea, vomiting, abdominal pain, fever, chills, back pain, or any other complaints. Patient verbalized agreement and understanding with this treatment plan and discharge. Differential Diagnosis Differential Diagnoses: The differential diagnosis associated with the presentation includes Left wrist sprain Left wrist strain Left wrist fracture Admission/Observation Consideration of admission/observation: Escalation of care including admis allison/observation considered Patient would have been admitted to the hospital had her work up had any findings where hospital admission was appropriate and her clinical presentation warranted hospital admission. Independent Interpretation I performed an independent interpretation of an: Plain X-Ray (Left wrist) Interpretation: My interpretation is in agreement with the radiologist's impression of this imaging study. EXAMINATION: XR WRIST, LEFT CLINICAL INFORMATION: fall COMPARISON: None available. TECHNIQUE: PA, lateral, and oblique views of the left wrist. FINDINGS: The bones and soft tissues are normal. No fracture. Alignment is anatomic with normal joint spaces. No erosions or abnormal soft tissue calcifications. XR/XR wrist LT min 3V IMPRESSION: Normal left wrist. Electronically signed by: Otilio Campos MD 01/09/2025 04:31 PM EDT RP Dictated By: Otilio Campos MD Signed By: Electronically signed by Otilio Campos MD 01/09/25 1631 Radiology Impression Discussion of test interpretation with radiology: I have reviewed the radiologist's reading. Discharge Plan Discharge Clinical Impression: Left wrist sprain Qualifiers: Encounter type: initial encounter Wrist sprain location: unspecified location Qualified Code(s): S63.502A - Unspecified sprain of left wrist, initial encounter Patient Disposition: Home, Self-Care Instructions: Wrist Sprain (ED) Additional Instructions: Follow up with your primary care provider and the orthopedic team. Continue wearing your brace as you have been. Return to the emergency department immediately if your symptoms worsen or if you develop any numbness, tingling, dizziness, shortness of breath, difficulty breathing, chest pain, blurry vision, loss of vision, nausea, vomiting, abdominal pain, fever, chills, back pain, or any other complaints. Please see the information below about our Patient Portal. If you are not yet enrolled in the [facility] Patient Portal, you will receive an enrollment email invitation following your visit to any [facility] setting. You may also self-enroll in the Patient Portal by visiting our website: [email or web address] The following information is required to access the Patient Portal: - Your [facility] Medical Record Number - Your personal home email address (must match what is in your electronic medical record, Registration staff can assist with this) - Name - Date of Capabilities of the Patient Portal: - Message some providers - View upcoming appointments - Access your health summary, medical history, and visit history - View current conditions and allergies - View procedure and lab results - View your medications, including guidelines, side effects, and precautions - Complete pre-appointment questionnaires requested by your provider - Ready summary reports of your office visits and procedures To access the Patient Portal Mobile [employer], follow these directions: - Search [employer] in the [employer] Store or [employer] Store - Download the Heide - Search for [facility] - Enter your login/password Prescriptions: No Action bisacodyl 5 mg tablet,delayed release (DR/EC) 10 mg PO BEDTIME Qty: 14 0RF hydromorphone [Dilaudid] 2 mg tablet 1 mg PO Q12H 7 Days Qty: 7 0RF Rx Instructions: Partial Fill upon patient request. meloxicam 15 mg tablet 15 mg PO DAILY Qty: 30 0RF tramadol 50 mg tablet 50 mg PO Q12H PRN (Reason: pain) Qty: 30 0RF dicyclomine 20 mg tablet 20 mg PO QID PRN (Reason: abdominal pain) Qty: 20 0RF docusate sodium [Colace] 100 mg capsule 100 mg PO BID PRN (Reason: Constipation) Qty: 14 0RF ibuprofen 600 mg tablet 600 mg PO TID PRN (Reason: pain) Qty: 14 0RF diazepam [Valium] 5 mg tablet 5 mg PO TID PRN (Reason: Anxiety) Rx Instructions: partial fill is okay methocarbamol 750 mg tablet 750 mg PO QID nitrofurantoin monohyd/m-cryst [Macrobid] 100 mg capsule 100 mg PO Q12H 7 Days Qty: 14 0RF Rx Instructions: must administer with a meal/food polyethylene glycol 3350 [Miralax] 17 gram/dose powder 17 g PO DAILY PRN (Reason: Constipation) carvedilol 3.125 mg tablet 3.125 mg PO BID amlodipine 10 mg tablet 10 mg PO DAILY fluticasone propionate 50 mcg/actuation spray,suspension 1 - 2 spray intranasal QAM fluticasone propionate [Flovent HFA] 110 mcg/actuation HFA aerosol inhaler 2 puff INHALATION iron dextran IV Patient Comments: last dose- last year acetaminophen [Tylenol 8 Hour] 650 mg tablet extended release 650 mg PO Q8H PRN (Reason: pain) Qty: 30 0RF oxycodone 5 mg tablet 5 mg PO Q6H PRN (Reason: severe pain (scale score 7-10)) Qty: 7 0RF Rx Instructions: Partial Fill upon patient request. vitamin B complex [B Complex-Vitamin B12] Tablet 1 tab PO DAILY cholecalciferol (vitamin D3) 125 mcg (5,000 unit) capsule 125 mcg PO DAILY All Day Allergy (cetirizine) 10 mg capsule 10 mg PO DAILY PRN (Reason: Allergy Symptoms) albuterol sulfate [ProAir HFA] 90 mcg/actuation HFA aerosol inhaler 2 puff PO Q4-6H PRN (Reason: Shortness Of Breath Or Wheezing) omeprazole 20 mg capsule,delayed release(DR/EC) 20 mg PO DAILY Zepbound 2.5 mg/0.5 mL pen injector 2.5 mg subcut QWEEK Rx Instructions: for 4 weeks Referrals: [facility] Orthopedic Surgeons [Provider Group] (Call to establish and follow up with an orthopedic provider. ) Porfirio Goodman MD [Primary Care Provider] - Print Language: Romanian
[2025-01-09 17:20] VITALS: BP 116/69; PULSE 94; RESP 16; TEMP 36.4; O2SAT 98
--- OUTSIDE RECORDS SUMMARY | 2025-01-09 18:05 | XMS_ITS | Encounter Summary ---
Author Organization [employer] Address [address] [facility] [address] [address] Care Team Providers Care Train Crew Member Name Role Phone Porfirio Goodman MD Primary Care Prov ider Luli Sosa RN Unavailable [phone] Marino Wiseman Unavailable Reason for Visit * Reason Comments Med Refill Encounter Details Date Type Department Care Team ([facility] st Contact Info) Description 12/17/2022 Refill [facility] CHC MED & PEDS [address] [place], [place] [phone] Porfirio Goodman MD [address] [place], [place] [phone] Post-nasal drip Social History Tobacco Use Types [...] Info) Description 01/19/2025 8:30 AM EDT Telemedicine [facility] MED & PEDS [address] [place] [address] Porfirio Goodman MD [address] [place] [address] documented as of this encounter Visit Diagnoses Diagnosis Post-nasal drip Postnasal drip documented in this encounter Care Teams Train Crew Member Relationship Specialty Start Date End Date Porfirio Goodman MD [address] [place] [address] PCP - General Internal Medicine 12/05/19 Luli Sosa RN [address] [place] [address] Registered Nurse Family Medicine 12/12/24 12/12/24 Marino Wiseman 12/12/24 12/12/24 Amber Mittal Trust AdvisorPhysician Practice Coordinator 04/20/24 documented as of this encounter
== END 2025-01-09 17:21 | disposition home or self-care (01) ==
PROVIDERS: Emergency Provider Emergency Medicine Emergency Medical Services; PCP Internal Medicine
DX: S63.502A Unspecified sprain of left wrist, initial encounter (principal); W01.0XXA Fall on same level from slipping, tripping and stumbling without subsequent striking against object, initial encounter; I10 Essential (primary) hypertension; M25.532 Pain in left wrist; Y93.9 Activity, unspecified; Y92.019 Unspecified place in single-family (private) house as the place of occurrence of the external cause; Y99.9 Unspecified external cause status
CPT/HCPCS: 73110; 99282; 99283

== ENCOUNTER → 2025-01-09 16:15 | Outpatient (BNV) | payer MEDICAID, SELFPAY | PROVIDERS: Emergency Provider Emergency Medicine Emergency Medical Services; PCP Internal Medicine; Visit Provider Radiology Diagnostic Radiology | DX: M25.532 Pain in left wrist (principal) | CPT/HCPCS: 73110 ==

== ENCOUNTER 2025-02-07 10:59 | Outpatient (REF) | payer MEDICAID, SELFPAY ==
--- OUTSIDE RECORDS SUMMARY | 2025-02-08 11:52 | XMS_ITS | Data Portability ---
Author Organization [place] - [facility], Allergy Address [address] [address] Care Team Providers Care Implant Coordinator Name Role Phone JORGE CARDONA Primary Care Provider Assessment Encounter Date Assessment Date Assessment LastModified [...] copy of the audiogram, a list of [facility] hearing aid providers, and medical clearance for amplification so the patient can pursue this at their convenience. Patient is medically cleared for amplification bilaterally She will also undergo retrocochlear evaluation for her hearing She has also requested refill of meclizine [email or web address] Not available 12/28/2023 12:15:59 12/29/2024 12/29/2024 Patient with episodic positionally induced vertigo. Melissa-Hallpike was positive for vertigo and rotary nystagmus with the head to the right. We discussed that the patient s pattern of symptoms and physical exam findings are most consistent with benign paroxysmal positional vertigo (BPPV). The pathophysiology of BPPV was discussed in detail. Patient was provided with a referral to AT for Shawn maneuvers and vestibular therapy.We discussed the fact that treatment of BPPV can require anywhere from 1 to 6 treatments for successful results, and has approximately 95% success rate in eliminating symptoms. BPPV can recur and if the classic positionally induced symptoms do recur, patient can call for further referrals. [email or web address] Not available 12/29/2024 14:44:43 Plan of Treatment Reminders Order Date Submit Date Provider Last Modified By Organization Details Last Modified Time Details Appointments None recorded. Lab None recorded. Referral vestibular therapy referral 2024 025 [facility] Physical Therapy - [facility], [address], [place], [address], 5 09:02:59 Procedures None recorded. Surgeries None recorded. Imaging MRI, brain + internal auditory canal, w/wo contrast - MRI, BRAIN + INTERNAL AUDITORY CANAL, W/WO CONTRAST. hx of menieres 2023 024 [facility] ([facility]), [address] [place], [address], 4 09:47:00 Medication Orders meclizine 25 mg tablet 2023 024 [id number], [address] [place], [place], [id number], 4 12:17:08 Patient TargetsNo targets recorded. Patient InstructionsNo instructions recorded. Reason for Referral Vestibular Therapy Referral for Benign paroxysmal positional vertigo Referring Physician: Tu Garcia, Otolaryngology, Encounter Date: 12/29/2024 Results Created Date Observation Date Name Description Value Unit Range Abnormal Flag Note LastModifiedBy Organization Detail LastModifiedTime 01/01/20 24 12/31/2023 MRI, brain + brain stem, w/wo contr ast [facility] Access ion Number : [id number] Grzegorz t Name: Anton ndiayeWilliam [facility] Med[facility] l Record Number : [id number] Date of : 1974 Date of Exam: 2023 Referr ing Physic brittani: Tu Garcia Ear Nose [address] [place] [address] Exam: MR Brain (C-/C+ ) CPT 29246 Room Descri ption: [place] Siem Verio 3.0T MR Brain (C-/C+ ) CPT 82924 INDICA TION / CLINIC AL QUESTI ON: Sensor ineura l hearin g loss, bilate ral, , MRI, BRAIN + DBA AL AUDITO RY CANAL, W/WO CONTRA ST. [...] or abnorm al enhanc ement in the physician internist al audito ry canals or cerebe llopon [...] onical ly Signed By: Augusta Franks MD [facility] ([facility]) [address], [place], [address], 01/04/2024 15:27:15 01/06/20 24 audio gram No observ ation record ed. BARCODE Not Available 2023 11:43:06 12/30/19 25 11/27/2014 audio gram No observ ation record ed. [email or web address] Not Available 11/2024 15:15:12 12/31/19 25 audio gram No observ ation record ed. BARCODE Not Available 2024 10:24:55 Result Notes Documentation Provider Name and Address Organization Details Recorded Time Mri, Brain + Brain Stem, W/wo Contrast : [facility] Accession Number: [id number] Patient Name: Kyle [place] Date of : 1975 Date of Exam: 12-31-2023 Referring Physician: Tu Garcia Ear Nose 100 [facility]/[address] [address] Exam: MR Brain (C-/C+) CPT 76200 Room Description: [facility] 3.0T MR Brain (C-/C+) CPT 36890 INDICATION / CLINICAL QUESTION: Sensorineural hearing loss, bilateral, , MRI, BRAIN + INTERNAL AUDITORY CANAL, W/WO CONTRAST. hx of menieres\E E\ Clinical Indication: Asymmetric sensorineural hearing loss TECHNIQUE: Multiplanar, multisequence MRI of the brain was performed with and without intravenous contrast. 20 mL Dotarem intravenous contrast was administered. COMPARISON: None. FINDINGS: IAC: There is no mass or abnormal enhancement in the internal auditory canals or cerebellopontine angles. Course and caliber of the 7th and 8th cranial nerves is normal bilaterally. Fluid signal is preserved in the inner ear structures bilaterally. Brainstem demonstrates normal signal. BRAIN and EXTRA-AXIAL SPACES: No significant abnormality of the visualized portions of the brain and extra-axial spaces. EXTRACRANIAL SOFT TISSUES: There is minimal scattered mucosal thickening in the paranasal sinuses without fluid levels. Small mucous retention cyst is seen in the left sphenoid sinus. Trace left mastoid effusion is seen. Nasopharyngeal contour is symmetric. Visualized portions of the extracranial soft tissues are otherwise unremarkable. BONES: Visualized marrow signal is preserved. IMPRESSION: No retrocochlear abnormality to explain the patient?s symptoms. Electronically Signed By: Annika GARCIA MD [address], [address], [facility] - [facility] 01/01/2024 17:03:32 Problems Name Problem SNOMED Code Status Onset Date Resolution Date Notes Provider Name and Address Organization Details Recorded Time Sensorine ural hearing loss of bilateral ears 610462995 Active 2014 Sensorine ural HL, bilateral ; Note: Date Diagnosed : 03/21/2015 4:37 PM (389.18) Sensori neural hearing loss, bilateral ; Note: Date Diagnosed : 03/21/2015 4:37 PM (H90.3) Not Available [facility] 4 03:09:32 Hypertrop hy of tonsils 25302972 Active 2017 Hypertrop hy of tonsils; Note: Date Diagnosed : 11/12/2017 12:00 PM (J35.1) Not Available [facility] 4 03:09:30 Leukocyto sis 688580193 Active 2017 Leukocyto sis, unspecifi ed; Note: Date Diagnosed : 11/12/2017 12:01 PM (D72.829) Not Available [facility] 4 03:09:32 Gastroeso phageal reflux disease without esophagit is 535244525 Active 2017 Gastro-es ophageal reflux disease without esophagit is; Note: Date Diagnosed : 11/12/2017 12:00 PM (K21.9) Not Available [facility] 4 03:09:31 M ni re's disease 52507663 Active 2023 TU GARCIA MD [address] [place] [address],[place] [address], [place], [address] , [facility] - [facility] 4 12:16:19 M ni re's disease 98066739 Active 2023 UT GARCIA MD 100 [facility],[place] [address], [place], [place], [address] , [place] - [facility] 4 12:16:21 Bilateral tinnitus 54182566626 02 Active 2024 ALFONSO POE [address] [facility],[place] [address], [place], [address] , [place] - [facility] 5 13:37:11 Benign paroxysma l positiona l vertigo 866254312 Active 2024 TU GARCIA MD [address] [place] [address],[place] [address], [place], [address] , [facility] - [facility] 14:44:11 Problem Notes None recorded. Procedures Surgical History Date Name Laterality Status Provider Name and Address Organization Details Recorded Time 12/29/2024 Air & Speech Audio with Tymps - 32904, 04387 & 24378 completed HAILEY ELLIOTT, AUD [address] [facility],[place] [address], [place], [address], [facility] - [facility] 12/29/2024 13:37:00 12/28/2023 Comp Audio with Tymps - 92822 & 47321 completed BERTHA CANO, [facility] [address] [facility],[place] [address], [place], [address], [facility] 12/28/2023 11:47:19 Imaging Results None recorded. Procedure Notes None recorded. Medical Equipment None Reported. Allergies Allergen ID Allergen Name Allergen Category Reaction Reaction Severity Criticality Documentation Date Start Date Code Code System Note Provider Name and Address Organization Details Recorded Time 245196 Bactrim medicatio n other Not available Not available 12/08/2023 04553 9 RxNorm React ion: unkno wn, unspe cifie d;; Not Available [facility] 4 01:14:34 351236 hydromorp katrin medicatio n other Not available Not available 12/08/2023 3423 RxNorm React ion: unkno wn, unspe cifie d;; Not Available [facility] 4 01:14:35 229976 penicilli n V potassium medicatio n other Not available Not available 12/08/2023 96736 5 RxNorm React ion: unkno wn, unspe cifie d;; Not Available [facility] 4 01:14:36 775913 azithromy farhan medicatio n other Not available Not available 12/08/2023 18980 RxNorm React ion: unkno wn, unspe cifie d;; Not Available [facility] 4 01:14:37 Medications Name Sig Start Date Stop Date Status Note LastModified by Organization Details LastModified Time celecoxib 200 mg capsule 12/29 completed Not Available Not Available Not Available cetirizin e 10 mg tablet TAKE 1 TABLET BY MOUTH EVERY DAY NEEDED FOR ALLERGIE S 12/29 completed Not Available Not Available Not Available ibuprofen 800 mg tablet 2014 active Medicati on ID: [id number] Du ration Value: 5 Brand Name: ibuprofe n Send Method: E-Prescr ibed Sub s Allowed: subs OK Medic ationGen ericName : ibuprofe n Not Available Not Available Not Available prochlorp erazine maleate 5 mg tablet 12/29 completed Medicati on ID: [id number] Du ration Value: 5 Brand Name: prochlor perazine maleate Send Method: E-Prescr ibed Sub s Allowed: subs OK Medic ationGen ericName : prochlor perazine maleate Not Available Not Available Not Available meloxicam 15 mg tablet TAKE 1 TABLET BY MOUTH DAILY active Not Available Not Available No t Available prednison e 20 mg tablet TAKE 1 TABLET BY MOUTH IN THE AM FOR 3 DAYS 12/29 completed Not Available Not Available Not Available dextroamp hetamine- amphetami ne 10 mg tablet TAKE 1 TABLET BY MOUTH TWICE DAILY NEEDED active Not Available Not Available No t Available propranol ol ER 60 mg capsule,2 4 hr,extend ed release active Not Available Not Available Not Available tramadol 50 mg tablet TAKE 1 TABLET BY MOUTH EVERY 12 HOURS NEEDED FOR PAIN active Not Available Not Available No t Available acetamino phen 500 mg tablet TAKE 2 TABLETS BY MOUTH EVERY 6 HOURS NEEDED FOR PAIN OR FEVER 12/29 completed Not Available Not Available Not Available carvedilo l 3.125 mg tablet TAKE 1 TABLET BY MOUTH TWICE DAILY WITH FOOD active Not Available Not Available No t Available acetamino phen ER 650 mg tablet,ex tended release TAKE 1 TABLET BY MOUTH EVERY 8 HOURS NEEDED FOR PAIN 12/29 completed Not Available Not Available Not Available oxycodone -acetamin ophen 5 mg-325 mg tablet TAKE 1 TABLET BY MOUTH EVERY 8 HOURS FOR UP TO 5 DAYS NEEDED FOR SEVERE PAIN 12/29 completed Not Available Not Available Not Available hydromorp katrin 2 mg tablet TAKE 1 TABLET BY MOUTH EVERY 8 HOURS 12/29 completed Not Available Not Available Not Available famotidin e 20 mg tablet 12/29 completed Not Available Not Available Not Available lorazepam 0.5 mg tablet TAKE 1 TABLET BY MOUTH TWICE DAILY NEEDED active Not Available Not Available No t Available methocarb ruben 750 mg tablet TAKE 1 TABLET BY MOUTH FOUR TIMES DAILY NEEDED active Not Available Not Available No t Available meclizine 25 mg tablet TAKE 1 TABLET BY MOUTH THREE TIMES DAILY active Not Available Not Available No t Available amlodipin e 10 mg tablet TAKE 1 TABLET BY MOUTH EVERY DAY 12/29 completed Not Available Not Available Not Available benzonata te 100 mg capsule 12/29 completed Not Available Not Available Not Available cephalexi n 500 mg capsule 12/29 completed Not Available Not Available Not Available triamcino lone acetonide 0.1 % topical ointment APPLY TWICE DAILY FOR 1 WEEK TO RASH ON RIGHT FOOT active Not Available Not Available No t Available dextroamp hetamine- amphetami ne 15 mg tablet TAKE 1 TABLET BY MOUTH TWICE DAILY IN THE MORNING AND AT 3 PM DIRECTED active Not Available Not Available No t Available sertralin e 25 mg tablet 2014 active Medicati on ID: [id number] Du ration Value: 30 Brand Name: sertrali ne Send Method: E-Prescr ibed Sub s Allowed: subs OK Medic ationGen ericName : sertrali ne Not Available Not Available Not Available omeprazol e 20 mg capsule,d elayed release TAKE 1 CAPSULE BY MOUTH EVERY DAY BEFORE A MEAL active Not Available Not Available No t Available capsaicin 0.025 % topical cream APPLY TOPICALL Y TO THE AFFECTED AREA TWICE DAILY active Not Available Not Available No t Available cyanocoba patrizia (vit B-12) 1,000 mcg sublingua l tablet 2014 active Medicati on ID: [id number] Du ration Value: 30 Brand Name: cyanocob alamin (vitamin B-12) Se nd Method: E-Prescr ibed Sub s Allowed: subs OK Medic ationGen ericName : cyanocob alamin (vitamin B-12) Not Available Not Available Not Available hydrochlo rothiazid e 25 mg tablet active Not Available Not Available Not Available diclofena c sodium 50 mg tablet,de layed release 2014 active Medicati on ID: [id number] Du ration Value: 30 Brand Name: diclofen ac sodium S end Method: E-Prescr ibed Sub s Allowed: subs OK Medic ationGen ericName : diclofen ac sodium Not Available Not Available Not Available Vitamin D2 1,250 mcg (50,000 unit) capsule 2014 active Medicati on ID: 75054 Du ration Value: 28 Brand Name: Vitamin D2 Send Method: E-Prescr ibed Sub s Allowed: subs OK Medic ationGen ericName : Vitamin D2 Not Available Not Available Not Available fluoxetin e 20 mg capsule TAKE 1 CAPSULE BY MOUTH EVERY DAY 12/29 completed Not Available Not Available Not Available fluticaso ne propionat e 50 mcg/actua tion nasal spray,kandi pension active Not Available Not Available Not Available doxycycli ne hyclate 100 mg tablet 12/29 completed Not Available Not Available Not Available Ventolin HFA 90 mcg/actua tion aerosol inhaler INHALE 2 PUFFS INTO THE LUNGS EVERY 2 TO 6 HOURS NEEDED active Not Available Not Available No t Available oxycodone 5 mg tablet TAKE 1 TABLET BY MOUTH EVERY 6 HOURS NEEDED FOR PAIN active Not Available Not Available No t Available cyclobenz aprine 5 mg tablet 12/29 completed Not Available Not Available Not Available nitrofura ntoin monohydra te/macroc rystals 100 mg capsule TAKE 1 CAPSULE BY MOUTH EVERY 12 HOURS FOR 7 DAYS 12/29 completed Not Available Not Available Not Available cholecalc iferol (vitamin D3) 25 mcg (1,000 unit) tablet TAKE 1 TABLET BY MOUTH EVERY MORNING active Not Available Not Available No t Available diclofena c 1 % topical gel APPLY TOPICALL Y TO THE AFFECTED AREA THREE TIMES DAILY active Not Available Not Available No t Available Allergy Relief (fexofena dine) 180 mg tablet active Not Available Not Available No t Available 28 mg iron-800 mcg tablet TAKE 1 TABLET BY MOUTH DAILY active Not Available Not Available No t Available BinaxNOW COVID-19 Ag Self Test kit TEST DIRECTED TODAY 12/29 completed Not Available Not Available Not Available Wegovy 1.7 mg/0.75 mL subcutane ous pen injector INJECT 1.7 MG UNDER THE SKIN ONE TIME PER WEEK active Not Available Not Available No t Available Wegovy 1 mg/0.5 mL subcutane ous pen injector INJECT 1MG SUBCUTAN EOUS EVERY WEEK active Not Available Not Available No t Available Wegovy 0.25 mg/0.5 mL subcutane ous pen injector ADMINIST ER 0.25 MG UNDER THE SKIN 1 TIME EVERY WEEK active Not Available Not Available No t Available Wegovy 0.5 mg/0.5 mL subcutane ous pen injector INJECT 0.5MG UNDER THE SKIN ONCE PER WEEK. active Not Available Not Available No t Available Zepbound 5 mg/0.5 mL subcutane ous pen injector ADMINIST ER 5 MG UNDER THE SKIN 1 TIME EVERY WEEK active Not Available Not Available No t Available Zepbound 7.5 mg/0.5 mL subcutane ous pen injector INJECT 0.5 MLS SUBCUTAN EOUS EVERY WEEK active Not Available Not Available No t Available Vitals Date Recorded Body height Body mass index (BMI) Body weight Provider Name and Address Organization Details Last Updated DateTime 12/28/2023 160.02 cm 45.2 kg/m2 681197.05 g Shannan Patrick [facility] 12/28/2023 12:07:32 Date Recorded Body height Body mass index (BMI) Body weight Provider Name and Address Organization Details Last Updated DateTime 12/29/2024 160.02 cm 37.9 kg/m2 71494.77 g BELL GALDAMEZ [facility] 12/29/2024 14:34:59 Social History None recorded. Functional Status None recorded. Mental Status None recorded. Family History Nothing Reported. Medical History No medical history recorded. Gynecological HistoryNo gynecological history recorded. Obstetrics History GPAL:G 0 P 0 0 0 0 Past Encounters Encounter ID Performer Location Encounter Start Date Encounter Closed Date Diagnosis/Indication Diagnosis SNOMED-CT Code Diagnosis ICD10 Code Diagnosis Note [id number] TU GARCIA MD [facility] [address] [address] 12/28/2023 11:10:16 12/28/2023 12:21:25 Sensorineural hearing loss of bilateral ears 514783544 H90.3 Audiologic al evaluation results:Ri ght ear:Mild SNHL rising to normal with excellent speech discrimina tion.Left ear:Modera te rising to mild SNHL with excellent speech discrimina tion. Tympanomet ry:Right Ear:Type ALeft Ear:Type A M ni re's disease 12918835 H81.03 [id number] TU GARCIA MD [facility] [address] [place] [address] 12/29/2024 13:20:27 12/29/2024 15:09:53 Bilateral tinnitus 8882985003 102 H93.13 Audiologic al evaluation results:Ri ght ear:Mild SNHL rising to normal with excellent speech discrimina tion.Left ear:Modera te rising to mild SNHL with excellent speech discrimina tion.Tympa nometry:Ri ght Ear: Type ALeft Ear: Type A Benign par oxysmal positional vertigo 901450496 H81.11 Right-side d rotary nystagmus consistent with positional vertigo. I believe this is different than her M ni re's dizziness and will respond adequately to vestibular rehab Sensorineu ral hearing loss of bilateral ears 543167822 H90.3 Audiometri c testing is stable compared with previous M ni re's disease 22453053 H81.03 Patient has received meclizine from her primary care Health Concerns Section Related Observation LastModified by Organization Detai ls LastModified Time None Recorded Concern Status LastModified by Organization Details LastModified Time None Recorded Advance Directives Directive None Recorded Payers Insurance Date Sequence Insurance Name Policy Number Policy Williamson Covered Member ID Williamson Member ID Guarantor Name 12/28/2023 1 [place] Elyzabeth A Gordon [id number] Elyzabeth A Yrn 01/07/2024 1 [place] Elyzabeth A Yrn [id number] Elyzabeth A Yrn 12/28/2023 1 [place] Elyzabeth Gordon [id number] Elyzabeth A Gordon 12/28/2024 1 [place] Elyzabeth A Yrn [id number] Elyzabeth A Yrn Notes Date Note Type Note Provider Name and Address Organization Details Recorded Time 12/28/2023 text/html Meniere's diseasediagnosed in her 20sin past year felt hearing is decreasingno trial of amplification in pastfelt last year was having more dizzy flare ups as wellconstant hum is presentneeds refill of meclizine 25mg near daily - TIDdoes not recall any scans of head with MRInot adherent to low sodium diethx of gastric sleeve and takes pedialyte TU GARCIA MD 100 [facility], [place], [address], [facility] - [facility] [place] 12/28/2023 12:19:04 12/29/2024 text/html Bilateral Menier e's diseasediagnosed in her 20suses meclizine 25mg near daily - TID, now QIDdizzy can be triggered when lays backtinnitus - constant hum bilateralnot adherent to low sodium diethx of gastric sleeve and takes pedialytedespite use of hearing aids she is still experiencing tinnitusMRI last week 12/25/24 - results pending PV 12/28/23 Radha, audio B SNHL, HAE w provider. asymmetry eval with MRI requested12/31/23 [facility] MRI, MRI brainno retrocochlear pathology TU GARCIA MD 100 [facility], [place], [address], [place] - [facility] 12/29/2024 14:46:22 OBGyn Episode No OBEpisode recorded.
--- OUTSIDE RECORDS SUMMARY | 2025-02-08 11:52 | XMS_ITS | Clinical Summary ---
Author Organization [facility] Address [address] [place] [address] Care Team Providers Care Tensile Tester Name Role Phone Porfirio Goodman Primary Care Provide r Surgical History Surgery Date Site/Laterality Comments OTHER SURGICAL HISTORY PROCEDURE: DE SURGICAL ARTHROSCOPY LAURO W/CORACOACRM LIGM RLS; COMMENT: both shoulders GASTRIC BYPASS PROCEDURE: GASTRIC BYPASS FOR OBESIT; COMMENT: gastric sleeve OTHER SURGICAL HISTORY PROCEDURE: ANESTHESIA FOR SECTION OTHER SURGICAL HISTORY 08/08/2022 PROCEDURE: DE ARTHRODESIS SI JOINT PERCUTANEOUS/MIN INVASIVE; COMMENT: Right [...] 5 Years) and At-Risk Patients (6 to 49 Years) (1 of 2 - PCV) 1994 Cervical Cancer Screening: P ap Smear 1996 Colorectal Cancer Screening: Colonoscopy 07/06/2022 Depression Screening 07/06/2022 HIV Screening 07/06/2022 Hepatitis C Screening 07/06/2022 Social Influencers of Health Screening 07/06/2022 COVID-19 Vaccine (1 - 2023-2 5 season) 2024 Influenza Vaccine (#1) 2025 05/14/2018 DTaP,Tdap,and Td Vaccines (2 - Td or [...] age to complete this topic Care Teams Tensile Tester Relationship Specialty Start Date End Date Porfirio Goodman [address] [place], [place] PCP - General Internal Medicine 04/02/22
--- OUTSIDE RECORDS SUMMARY | 2025-02-08 11:52 | XMS_ITS | Encounter Summary ---
Author Organization [facility] Address [address] [facility] [address], [place] [address] Care Team Providers Care Ruling Machine Operator Name Role Phone Porfirio Goodman MD Primary Care Prov ider Luli oSsa RN Unavailable [phone] Marino Wiseman Unavailable Reason for Visit * Reason Comments Med Refill Encounter Details Date Type Department Care Team ([facility] st Contact Info) Description 12/17/2022 Refill [facility] [address] [place], [place] [phone] Porfirio Goodman MD [address] [place], [place] [phone] Post-nasal drip Social History Tobacco Use Types [...] Care Team (Late st Contact Info) Description 04/20/2025 11:15 AM EDT Office Visit [facility] [address] [place] [address] Porfirio Goodman MD [address] [place] [address] documented as of this encounter Visit Diagnoses Diagnosis Post-nasal drip Postnasal drip documented in this encounter Care Teams Ruling Machine Operator Relationship Specialty Start Date End Date Porfirio Goodman MD [address] [place] [address] PCP - General Internal Medicine 12/05/19 Luli Sosa RN [address] [place] [address] Registered Nurse Family Medicine 12/12/24 12/12/24 Marino Wiseman 12/12/24 12/12/24 Amber [employer] SupervisorGuard Sergeant 04/20/24 documented as of this encounter
== END 2025-02-07 11:00 | disposition home or self-care (01) ==
LOC: HO.HOSX 10:59
DX: Z13.89 Encounter for screening for other disorder (principal)

== ENCOUNTER 2025-02-22 18:34 | Emergency (ER) | payer MEDICAID, SELFPAY ==
[2025-02-22 19:03] VITALS: BP 119/74; PULSE 69; RESP 18; TEMP 36.6; O2SAT 100; BMI 43.7
--- NOTE | 2025-02-22 19:10 | ED.GENADULT ---
HPI - General Adult General Chief complaint: Ear Problems Stated complaint: hearing aid broke inside rt ear, pain/headache Time Seen by Provider: 02/22/25 19:10 Related Data Home Medications ?Medication ?Instructions ?Recorded ?Confirmed cetirizine 10 mg capsule (All Day 10 mg PO DAILY PRN Allergy Symptoms 11/14/20 09/06/24 Allergy (cetirizine)) cholecalciferol (vitamin D3) 125 125 mcg PO DAILY 11/14/20 09/06/24 mcg (5,000 unit) capsule vitamin B complex (B 1 tab PO DAILY 11/14/20 09/06/24 Complex-Vitamin B12 tablet) albuterol sulfate 90 mcg/actuation 2 puff PO Q4-6H PRN Shortness Of 01/14/22 09/06/24 aerosol inhaler (ProAir HFA) Breath Or Wheezing omeprazole 20 mg capsule,delayed 20 mg PO DAILY 01/14/22 09/06/24 release amlodipine 10 mg tablet 10 mg PO DAILY 12/04/22 09/06/24 carvedilol 3.125 mg tablet 3.125 mg PO BID 12/04/22 09/06/24 fluticasone propionate 110 2 puff inhalation 12/04/22 09/06/24 mcg/actuation HFA aerosol inhaler (Flovent HFA) fluticasone propionate 50 1 - 2 spray intranasal QAM 12/04/22 09/06/24 mcg/actuation nasal spray,suspension polyethylene glycol 3350 17 17 g PO DAILY PRN Constipation 12/04/22 09/06/24 gram/dose oral powder (Miralax) iron dextran IV 12/23/22 09/06/24 diazepam 5 mg tablet (Valium) 5 mg PO TID PRN Anxiety 09/02/23 09/06/24 methocarbamol 750 mg tablet 750 mg PO QID 09/02/23 09/06/24 tirzepatide (weight loss) 2.5 2.5 mg subcut QWEEK 09/06/24 09/06/24 mg/0.5 mL subcutaneous pen injector (Zepbound) Previous Rx's ?Medication ?Instructions ?Recorded dicyclomine 20 mg tablet 20 mg PO QID PRN abdominal pain 06/16/20 #20 tabs docusate sodium 100 mg capsule 100 mg PO BID PRN Constipation #14 09/03/21 (Colace) caps ibuprofen 600 mg tablet 600 mg PO TID PRN pain #14 tabs 02/13/22 bisacodyl 5 mg tablet,delayed 10 mg (2 x 5 mg) PO BEDTIME #14 11/17/22 release tabs hydromorphone 2 mg tablet 1 mg (1/2 x 2 mg) PO Q12H 7 days 09/28/23 (Dilaudid) #7 tabs meloxicam 15 mg tablet 15 mg PO DAILY #30 tabs 10/12/23 tramadol 50 mg tablet 50 mg PO Q12H PRN pain #30 tabs 11/05/23 nitrofurantoin 100 mg PO Q12H 7 days #14 caps 03/07/24 monohydrate/macrocrystals 100 mg capsule (Macrobid) acetaminophen 650 mg 650 mg PO Q8H PRN pain #30 tabs 06/29/24 tablet,extended release (Tylenol 8 Hour) oxycodone 5 mg tablet 5 mg PO Q6H PRN severe pain (scale 06/29/24 score 7-10) #7 tabs Allergies Allergy/AdvReac Type Severity Reaction Status Date / Time amoxicillin Allergy Severe DIFFICULTY Verified 02/22/25 19:04 BREATHING clavulanic acid Allergy Severe DIFFICULTY Verified 02/22/25 19:04 BREATHNG nabumetone Allergy Severe Depression Verified 02/22/25 19:04 Penicillins Allergy Severe Shortness Verified 02/22/25 19:04 of Breath, itching sulfamethoxazole Allergy Severe DIFFICULTY Verified 02/22/25 19:04 BREATHING, anaphylaxis trimethoprim Allergy Severe DIFFICULTY Verified 02/22/25 19:04 BREATHING, anaphylaxis azithromycin Allergy Intermediate DIFFICULTY Verified 02/22/25 19:04 BREATHING hydrocodone Allergy Intermediate DIFFICULTY Verified 02/22/25 19:04 BREATHING levofloxacin Allergy Intermediate AGITATION-CAN Verified 02/22/25 19:04 TAKE IV, BUT NOT PO ondansetron (From Zofran) Allergy Intermediate r/t Verified 02/22/25 19:04 prolonged QT rizatriptan (RIZATRIPTAN) Allergy Intermediate HIVES Verified 01/09/25 16:06 diphenhydramine (From AdvReac Unknown told to Verified 01/09/25 16:06 BENADRYL) avoid From REGLAN Allergy Severe DYSPHORIA Uncoded 02/11/24 10:38 PMFSH Past Medical History Medical History Hx MRSA infection (~2019) Wears glasses Wears hearing aid in both ears Leukocytosis Ear piercing ALMA DELIA (obstructive sleep apnea) Personal history of COVID-19 Renal cyst Anemia Prolonged QT interval Murmur, cardiac Thyroid condition Essential hypertension Sacroiliac joint dysfunction of right side Asthma PCOS (polycystic ovarian syndrome) Surgical History Hx of arthroscopy of left knee (09/04/23) S/P fusion of sacroiliac joint (12/23/22) History of S/P left knee arthroscopy Status post arthroscopy of shoulder H/O gastric sleeve History of ankle surgery History of laparoscopic partial gastrectomy Social History Social History Household Members: Spouse, Family and Children Housing: House Are you a primary day care director to a significant other at home: Yes (5 year old daughter) Do you presently have visiting nurse or other home services: No Alcohol intake: former Patient Tobacco Use Status: Never used Tobacco e-Cigarette/Vaping Use: Never Used Physical Exam ED Vital Signs: Vital Signs - 24 hr 02/22/25 19:03 Temperature 98 F Pulse Rate 69 Respiratory Rate 18 Blood Pressure 119/74 Pulse Oximetry 100 Oxygen Delivery Method Room Air BMI result Body Mass Index 43.7 Discharge Plan Discharge Clinical Impression: Foreign body in ear Patient Disposition: Home, Self-Care Instructions: Ear Foreign Body (ED) Prescriptions: No Action bisacodyl 5 mg tablet,delayed release (DR/EC) 10 mg PO BEDTIME Qty: 14 0RF hydromorphone [Dilaudid] 2 mg tablet 1 mg PO Q12H 7 Days Qty: 7 0RF Rx Instructions: Partial Fill upon patient request. meloxicam 15 mg tablet 15 mg PO DAILY Qty: 30 0RF tramadol 50 mg tablet 50 mg PO Q12H PRN (Reason: pain) Qty: 30 0RF dicyclomine 20 mg tablet 20 mg PO QID PRN (Reason: abdominal pain) Qty: 20 0RF docusate sodium [Colace] 100 mg capsule 100 mg PO BID PRN (Reason: Constipation) Qty: 14 0RF ibuprofen 600 mg tablet 600 mg PO TID PRN (Reason: pain) Qty: 14 0RF diazepam [Valium] 5 mg tablet 5 mg PO TID PRN (Reason: Anxiety) Rx Instructions: partial fill is okay methocarbamol 750 mg tablet 750 mg PO QID nitrofurantoin monohyd/m-cryst [Macrobid] 100 mg capsule 100 mg PO Q12H 7 Days Qty: 14 0RF Rx Instructions: must administer with a meal/food polyethylene glycol 3350 [Miralax] 17 gram/dose powder 17 g PO DAILY PRN (Reason: Constipation) carvedilol 3.125 mg tablet 3.125 mg PO BID amlodipine 10 mg tablet 10 mg PO DAILY fluticasone propionate 50 mcg/actuation spray,suspension 1 - 2 spray intranasal QAM fluticasone propionate [Flovent HFA] 110 mcg/actuation HFA aerosol inhaler 2 puff INHALATION iron dextran IV Patient Comments: last dose- last year acetaminophen [Tylenol 8 Hour] 650 mg tablet extended release 650 mg PO Q8H PRN (Reason: pain) Qty: 30 0RF oxycodone 5 mg tablet 5 mg PO Q6H PRN (Reason: severe pain (scale score 7-10)) Qty: 7 0RF Rx Instructions: Partial Fill upon patient request. vitamin B complex [B Complex-Vitamin B12] Tablet 1 tab PO DAILY cholecalciferol (vitamin D3) 125 mcg (5,000 unit) capsule 125 mcg PO DAILY All Day Allergy (cetirizine) 10 mg capsule 10 mg PO DAILY PRN (Reason: Allergy Symptoms) albuterol sulfate [ProAir HFA] 90 mcg/actuation HFA aerosol inhaler 2 puff PO Q4-6H PRN (Reason: Shortness Of Breath Or Wheezing) omeprazole 20 mg capsule,delayed release(DR/EC) 20 mg PO DAILY Zepbound 2.5 mg/0.5 mL pen injector 2.5 mg subcut QWEEK Rx Instructions: for 4 weeks Print Language: Turkish
[2025-02-22 19:13] VITALS: BP 119/74; PULSE 69; RESP 18; TEMP 36.6; O2SAT 100
--- OUTSIDE RECORDS SUMMARY | 2025-02-22 19:18 | XMS_ITS | Clinical Summary ---
Author Organization [facility] it[facility] Address [address] [place] [address] Care Team Providers Care Heart Specialist Name Role Phone Porfirio Goodman Primary Care Provide r Surgical History Surgery Date Site/Laterality Comments OTHER SURGICAL HISTORY PROCEDURE: [place] SURGICAL ARTHROSCOPY LAURO W/CORACOACRM LIGM RLS; COMMENT: both shoulders GASTRIC BYPASS PROCEDURE: GASTRIC BYPASS FOR OBESIT; COMMENT: gastric sleeve OTHER SURGICAL HISTORY PROCEDURE: ANESTHESIA FOR SECTION OTHER SURGICAL HISTORY 08/08/2022 PROCEDURE: [place] ARTHRODESIS SI JOINT PERCUTANEOUS/MIN INVASIVE; COMMENT: Right [...] Smear 1996 Colorectal Cancer Screening: Colonoscopy 07/06/2022 HIV Screening 07/06/2022 Hepatitis C Screening 07/06/2022 Social Influencers of Health Screening 07/06/2022 COVID-19 Vaccine (1 - 2023-2 5 season) 2024 Depression Screening 07/27/2024 Influenza Vaccine (#1) 2025 05/14/2018 DTaP,Tdap,and Td [...] age to complete this topic Care Teams Heart Specialist Relationship Specialty Start Date End Date Porfirio Goodman [address] [place], [place] PCP - General Internal Medicine 04/02/22
--- OUTSIDE RECORDS SUMMARY | 2025-02-22 19:18 | XMS_ITS | Clinical Summary ---
Author Organization [facility] Address [address] [place] [id number] Phone Care Team Providers Care Masonry Teacher Name Role Phone Porfirio Goodman MD Primary Care Prov ider Allergies Active Allergy Reactions Criticality Noted Date Comments Diphenhydramine Hcl 11/01/2021 Hydrocodone-Acetaminophen Shortness Of Breath High 1 Levofloxacin 11/01/2021 Metoclopramide Hcl 11/01/2021 Nabumetone 11/01/2021 Ondansetron Hcl 11/01/2021 Penicillins Shortness Of Breath,Itching High 05/16/2021 Rizatriptan 11/01/2021 Sulfamethoxazole-Trimethoprim Throat Tightness Medium 11/25/2006 Sulfanilamide Anaphylaxis High 05/16/2021 Medications tiZANidine (ZANAFLEX) 2 MG tablet Take 2 mg by mouth every 6 (six) hours as needed. Active multivitamin,tx- minerals (MULTI-VITAMIN HP/MINERALS) Cap Take by mouth. Active cholecalciferol (VITAMIN D3) 5,000 unit tablet Take 1,000 Units by mouth daily. Active methylPREDNISolo ne (MEDROL DOSEPACK) 4 mg tabletIndication s:Acute right-sided low back pain with right-sided sciatica follow package directions 21 tablet 1 Active cetirizine (ZYRTEC) 10 MG tablet TAKE 1 TABLET BY MOUTH EVERY DAY NEEDED FOR ALLERGIES 1 Active ferrous sulfate 325 mg (65 mg unga iron) tablet Take 1 tablet by mouth daily. 1 Active 28 mg iron- 800 mcg Tab Take 1 tablet by mouth daily. 1 Active VITAMINS B COMPLEX tablet Take 1 tablet by mouth daily. 1 Active diazePAM (VALIUM) 5 MG tablet Take 2 tablets (10 mg total) by mouth every 6 (six) hours as needed for anxiety. 2 tablet 2 Active betamethasone dipropionate 0.05 % cream APPLY THIN LAYER TOPICALLY TO THE AFFECTED AREA EVERY DAY 2 Active butalbital-aceta minophen-caff 50-325-40 mg per capsule TAKE 1 TO 2 CAPSULES BY MOUTH EVERY 4 HOURS NEEDED. NOT TO EXCEED 6 CAPSULES PER 24 HOURS NEEDED 2 Active chlorhexidine (PERIDEX) 0.12 % solution RINSE AND SPIT WITH 15 ML BY MOUTH TWICE DAILY AFTER MEALS. SWISH FOR 30 SECONDS THEN SPIT 2 Active docusate sodium (COLACE) 100 MG capsule TAKE ONE CAPSULE BY MOUTH TWICE DAILY NEEDED FOR CONSTIPATION 2 Active ibuprofen (ADVIL,MOTRIN) 800 MG tablet Take 800 mg by mouth every 8 (eight) hours as needed. 2 Active methocarbamoL (ROBAXIN) 750 MG tablet Take 750 mg by mouth 3 (three) times a day. 2 Active naproxen (NAPROSYN) 500 MG tablet TAKE 1 TABLET BY MOUTH TWICE DAILY WITH FOOD NEEDED 2 Active omeprazole (PRILOSEC) 20 MG capsule Take 20 mg by mouth. 2 Active meloxicam (MOBIC) 15 MG tablet Take 15 mg by mouth daily. 2 Active PROAIR HFA 90 mcg/actuation inhaler 2 puffs every 4 (four) hours as needed. 2 Active Active Problems Problem Noted Date Diagnosed Date Disorder of sacrum 12/10/2021 Social History Tobacco Use Types Packs/Day Years Used Date Smoking Tobacco: Never Smokeless Tobacco: Never Education Answer Date Recorded Are you interested in more education? Not on justin e 11/22/2022 Are you concerned about learning? Not on file 11/22/2022 No 11/22/2022 No 11/22/2022 Digital Access Answer Date Recorded No 12/23/2022 No 12/23/2022 Reliable internet access at home? Not on file 12/23/2022 Device with a working camera? Not on file Comments No Sex and Gender Information Value Date Recorded Sex Assigned at Female 05/13/2021 2:08 PM EDT Legal Sex Female 1:54 PM EDT Gender Identity Female 05/13/2021 2:08 PM EDT Sexual Orientation Straight 05/13/2021 2: 08 PM EDT Last Filed Vital Signs Vital Sign Reading Time Taken Comments Blood Pressure 130/80 07/15/2021 2:37 PM EST Pulse 78 07/15/2021 2:37 PM EST Temperature 36.3 C (97.3 F) 05/16/2021 10:58 AM EDT Respiratory Rate - - Oxygen Saturation 98% 07/15/2021 2:37 PM EST Inhaled Oxygen Concentration - - Weight 111.9 kg (246 lb 9.6 oz) 02/15/2024 8:55 AM EDT Height 160 cm (5' 3 ) 02/15/2024 8:55 AM EDT Body Mass Index 43.68 02/15/2024 8:55 AM EDT Plan of Treatment Health Maintenance Due Date Last Done Comments DEPRESSION SCREENING 1987 HEPATITIS C SCREENING 1993 HIV ONE-TIME SCREENING (18-6 5 YEARS) 1993 PAP SMEAR 1996 SCREENING FOR DIABETES 2010 MAMMOGRAM 2015 COLOGUARD 2020 COLONOSCOPY 2020 COLORECTAL CANCER SCREENING 2020 FIT TEST 2020 FOBT 2020 SIGMOIDOSCOPY 2020 VIRTUAL COLONOSCOPY 2020 COVID-19 VACCINE (1 - 2023-2 5 season) 2024 LIPID PANEL 10/14/2027 10/13/2022 Adult Td,Tdap Booster 04/26/2028 04/26/2018 , 01/14/2018, 10/22/2010 PNEUMOCOCCAL VACCINES (0-49 years) Aged Out 08/01/2009 No longer eligible b ased on patient's age to complete this topic SMOKING STATUS SCREENING (On ce After 26 Yrs) Completed 01/13/2022 HEPATITIS A VACCINES Aged Out No long er eligible based on patient's age to complete this topic HIB VACCINES Aged Out No longer eligi ble based on patient's age to complete this topic MENINGOCOCCAL VACCINES (ACWY) Aged Out No longer eligible based on patient's age to complete this topic MENINGOCOCCAL VACCINES (B) Aged Out N o longer eligible based on patient's age to complete this topic Medical Devices Not on file Insurance C3 ACO C3 ACO C3 ACO C3 ACO C3 ACO C3 ACO C3 ACO C3 ACO C3 ACO Care Teams Masonry Teacher Relationship Specialty Start Date End Date Porfirio Goodman MD [address] [place] [id number] PCP - General Internal Medicine 09/18/21 Additional Source Comments The information contained in this document represents components of the legal health record. It is not the complete legal health record.[facility]
== END 2025-02-22 19:19 | disposition home or self-care (01) ==
LOC: HO.ED 19:16
PROVIDERS: Emergency Provider Emergency Medicine; PCP Internal Medicine
DX: T16.1XXA Foreign body in right ear, initial encounter (principal); W44.G1XA Audio device entering into or through a natural orifice, initial encounter; Y93.9 Activity, unspecified; Y92.9 Unspecified place or not applicable; Y99.9 Unspecified external cause status; H92.01 Otalgia, right ear; R51.9 Headache, unspecified; Z79.899 Other long term (current) drug therapy
CPT/HCPCS: 99283

== ENCOUNTER 2025-02-28 09:15 | Outpatient (AMB) | payer MEDICAID, SELFPAY ==
--- NOTE | 2025-02-28 09:25 | MHC.NURWM ---
Intake Intake Visit Reasons: OV PO LSG 12/14/14 Allergies amoxicillin Allergy (Severe, Verified 02/22/25 19:04) DIFFICULTY BREATHING clavulanic acid Allergy (Severe, Verified 02/22/25 19:04) DIFFICULTY BREATHNG nabumetone Allergy (Severe, Verified 02/22/25 19:04) Depression Penicillins Allergy (Severe, Verified 02/22/25 19:04) Shortness of Breath, itching sulfamethoxazole Allergy (Severe, Verified 02/22/25 19:04) DIFFICULTY BREATHING, anaphylaxis trimethoprim Allergy (Severe, Verified 02/22/25 19:04) DIFFICULTY BREATHING, anaphylaxis azithromycin Allergy (Intermediate, Verified 02/22/25 19:04) DIFFICULTY BREATHING hydrocodone Allergy (Intermediate, Verified 02/22/25 19:04) DIFFICULTY BREATHING levofloxacin Allergy (Intermediate, Verified 02/22/25 19:04) AGITATION-CAN TAKE IV, BUT NOT PO ondansetron (From Zofran) Allergy (Intermediate, Verified 02/22/25 19:04) r/t prolonged QT rizatriptan (RIZATRIPTAN) Allergy (Intermediate, Verified 01/09/25 16:06) HIVES diphenhydramine (From BENADRYL) Adverse Reaction (Unknown, Verified 01/09/25 16:06) told to avoid From REGLAN Allergy (Severe, Uncoded 02/11/24 10:38) DYSPHORIA Coding
--- OUTSIDE RECORDS SUMMARY | 2025-02-28 09:35 | XMS_ITS | Encounter Summary ---
Author Organization [facility] Address [address] [place] [address] [address], [place] [address] Care Team Providers Care Academic Affairs Director Name Role Phone Porfirio Goodman MD Primary Care Prov ider Luli Sosa RN Unavailable [phone] Marino Wiseman Unavailable Jeanine Montague Unavailable Reason for Visit * Reason Comments Med Refill Encounter Details Date Type Department Care Team ([facility] Contact Info) Description 12/17/2022 Refill [facility] [address], [place] [phone] Porfirio Goodman MD [address] [place], [place] [phone] Post-nasal drip Social History Tobacco Use Types [...] Description 04/20/2025 11:15 AM EDT Office Visit [facility] [address] [place] [address] Porfirio Goodman MD [address] [place] [address] documented as of this encounter Visit Diagnoses Diagnosis Post-nasal drip Postnasal drip documented in this encounter Care Teams Academic Affairs Director Relationship Specialty Start Date End Date Porfirio Goodman MD [address] [place] [address] PCP - General Internal Medicine 12/05/19 Luli Sosa RN [address] [place] [id number] Registered Nurse Family Medicine 12/12/24 12/12/24 Marino Wiseman 12/12/24 12/12/24 Jeanine Montague 02/23/25 Amber Mittal Certified Hearing Instrument DispenserBone Tender 04/20/24 documented as of this encounter
--- OUTSIDE RECORDS SUMMARY | 2025-02-28 09:36 | XMS_ITS | Clinical Summary ---
Author Organization [facility] Address [address] [place] [address] Care Team Providers Care Town Clerk Name Role Phone Porfirio Goodman Primary Care Provide r Surgical History Surgery Date Site/Laterality Comments OTHER SURGICAL HISTORY PROCEDURE: [place] SURGICAL ARTHROSCOPY LAURO W/CORACOACRM LIGM RLS; COMMENT: both shoulders GASTRIC BYPASS PROCEDURE: GASTRIC BYPASS FOR OBESIT; COMMENT: gastric sleeve OTHER SURGICAL HISTORY PROCEDURE: ANESTHESIA FOR SECTION OTHER SURGICAL HISTORY 08/08/2022 PROCEDURE: [place] ARTHRODESIS SI JOINT PERCUTANEOUS/MIN INVASIVE; COMMENT: Right [...] age to complete this topic Care Teams Town Clerk Relationship Specialty Start Date End Date Porfirio Goodman [address] [place], [place] PCP - General Internal Medicine 04/02/22
--- NOTE | 2025-02-28 09:46 | MHC.OFFVISWM ---
VS Expanded 02/28/25 09:51 BP 141/81 H Blood Pressure Location Rt brachial Blood Pressure Position Sitting Pulse 84 Pulse Source Pulse Oximeter Temp 95.2 F L Temperature Source Temporal Artery Scan Pulse Oximetry 95 Oxygen Delivery Method Room Air Height 5 ft 2.5 in Weight 206 lb 12.8 oz BMI 37.2 Body Fat % 41.5 Body Fat Mass 85.8 Fat Free Mass 121.0 Visceral Fat Rating 1.0 Body Water % 41.7 Body Water Mass 86.2 Muscle Mass/Score 114.8 Basal Metabolic Rate/Score 1,675 Intake Visit Reasons: OV PO LSG 12/14/14 Allergies amoxicillin Allergy (Severe, Verified 02/28/25 09:46) DIFFICULTY BREATHING clavulanic acid Allergy (Severe, Verified 02/28/25 09:46) DIFFICULTY BREATHNG nabumetone Allergy (Severe, Verified 02/28/25 09:46) Depression Penicillins Allergy (Severe, Verified 02/28/25 09:46) Shortness of Breath, itching sulfamethoxazole Allergy (Severe, Verified 02/28/25 09:46) DIFFICULTY BREATHING, anaphylaxis trimethoprim Allergy (Severe, Verified 02/28/25 09:46) DIFFICULTY BREATHING, anaphylaxis azithromycin Allergy (Intermediate, Verified 02/28/25 09:46) DIFFICULTY BREATHING hydrocodone Allergy (Intermediate, Verified 02/28/25 09:46) DIFFICULTY BREATHING levofloxacin Allergy (Intermediate, Verified 02/28/25 09:46) AGITATION-CAN TAKE IV, BUT NOT PO ondansetron (From Zofran) Allergy (Intermediate, Verified 02/28/25 09:46) r/t prolonged QT rizatriptan (RIZATRIPTAN) Allergy (Intermediate, Verified 02/28/25 09:46) HIVES diphenhydramine (From BENADRYL) Adverse Reaction (Unknown, Verified 02/28/25 09:46) told to avoid From REGLAN Allergy (Severe, Uncoded 02/11/24 10:38) DYSPHORIA Medication List - Last Reconciled 02/28/25 by JESSICA Mtz acetaminophen ER (Tylenol 8 Hour) 650 mg PO Q8H PRN albuterol sulfate 90 mcg/actuation (ProAir HFA) 2 puffs PO Q4-6H PRN amlodipine 10 mg PO DAILY bisacodyl 10 mg (2 x 5 mg) PO BEDTIME carvedilol 3.125 mg PO BID cetirizine (All Day Allergy (cetirizine)) 10 mg PO DAILY PRN cholecalciferol (vitamin D3) 125 mcg PO DAILY diazepam (Valium) 5 mg PO TID PRN dicyclomine 20 mg PO QID PRN docusate sodium (Colace) 100 mg PO BID PRN fluticasone propionate 50 mcg/actuation 1 - 2 sprays intranasal QAM fluticasone propionate 110 mcg/actuation (Flovent HFA) 2 puffs inhalation hydromorphone (Dilaudid) 1 mg (1/2 x 2 mg) PO Q12H 7 days ibuprofen 600 mg PO TID PRN [iron dextran IV] meloxicam 15 mg PO DAILY methocarbamol 750 mg PO QID nitrofurantoin monohyd/m-cryst 100 mg (Macrobid) 100 mg PO Q12H 7 days omeprazole 20 mg PO DAILY oxycodone 5 mg PO Q6H PRN polyethylene glycol 3350 (Miralax) 17 grams PO DAILY PRN tirzepatide (weight loss) (Zepbound) 10 mg subcut QWEEK tramadol 50 mg PO Q12H PRN vitamin B complex (B Complex-Vitamin B12 tablet) 1 tab PO DAILY HPI Comments Details: This is a 49 yo female who is s/p LSG 12/14/[address] Dan. Weight at last visit in Aug 2024 was 212.6 pounds; weight loss today of 5.8lbs since last OV. No complaints of nausea, emesis, abdominal pain or reflux, or constipation. Continues on Zepbound, up to 10mg. Pt reports her has been out of work since July; her daughter also broke her arm last week. Present meal plan includes: 2 Slimfast shakes (20g), one Quest bar or chips (20g), and two meals each with 6 forkfuls protein, plus 6ff salad/veg - I'm struggling with the eating, I'm not always hungry Exercise routine includes: DanceBIOeCONme sanchez - better at being consistent, doing every night with her daughter deals with fibromyalgia which makes it harder for her to be consistent [facility], [facility] Medical History Hx MRSA infection (~2019) Wears glasses Wears hearing aid in both ears Leukocytosis Ear piercing ALMA DELIA (obstructive sleep apnea) Personal history of COVID-19 Renal cyst Anemia Prolonged QT interval Murmur, cardiac Thyroid condition Essential hypertension Sacroiliac joint dysfunction of right side Asthma PCOS (polycystic ovarian syndrome) Surgical History Hx of arthroscopy of left knee (09/04/23) S/P fusion of sacroiliac joint (12/23/22) History of S/P left knee arthroscopy Status post arthroscopy of shoulder H/O gastric sleeve History of ankle surgery History of laparoscopic partial gastrectomy Social History Household Members: Spouse, Family and Children Housing: House Are you a primary managed care coordinator to a significant other at home: Yes (5 year old daughter) Do you presently have visiting nurse or other home services: No Alcohol intake: former Patient Tobacco Use Status: Never used Tobacco e-Cigarette/Vaping Use: Never Used Assessment & Plan Assessment & Plan (1) H/O gastric sleeve: Comment: 2012 Code(s): Z90.3 - Acquired absence of stomach [part of] Category: Surgical (2) Obesity: Code(s): E66.9 - Obesity, unspecified Category: Medical Plan Pt doing well on Zepbound. She is happy with her progress. However she is likely too low on overall protein. She says she does not have much time to prep. We again discussed the importance of adequate protein intake in preserving muscle and bone mass during weight loss. I suggested she mix a protein shake into the [employer] coffee that she purchased at some point this morning. Will repeat labs at next visit. RTC 6mo.
[2025-02-28 09:51] VITALS: BP 141/81; PULSE 84; TEMP 35.1; O2SAT 95; BMI 37.2
== END 2025-02-28 10:10 | disposition home or self-care (01) ==
LOC: HO.HBS 09:16
PROVIDERS: PCP Internal Medicine; Visit Provider Physician Assistant Surgical
DX: E66.9 Obesity, unspecified (principal); Z68.37 Body mass index [BMI] 37.0-37.9, adult; Z90.3 Acquired absence of stomach [part of]; Z98.84 Bariatric surgery status
CPT/HCPCS: 99213

== ENCOUNTER → 2025-02-28 09:15 | Outpatient (BNVA) | payer MEDICAID, SELFPAY | PROVIDERS: PCP Internal Medicine; Visit Provider Physician Assistant Surgical | DX: Z98.84 Bariatric surgery status (principal); Z90.3 Acquired absence of stomach [part of]; E66.9 Obesity, unspecified | CPT/HCPCS: 99212 ==

== ENCOUNTER 2025-03-29 12:46 | Emergency (ER) | payer MEDICAID, SELFPAY ==
--- NOTE | ~2025-03-29 | XR_ITS ---
EXAMINATION: XR HAND, LEFT CLINICAL INFORMATION: laceration, r/o FB vs bony injury COMPARISON: 05/10/2021. TECHNIQUE: PA, lateral, and oblique views of the left hand. FINDINGS: No fracture, dislocation, or suspicious bone lesion. Normal bone mineralization. Normal alignment. Joint spaces are preserved. No significant arthropathy. Soft tissues demonstrate no evidence of radiopaque foreign body or significant soft tissue swelling. XR/XR hand LT min 3V IMPRESSION: 1. No acute findings of the left hand. Electronically signed by: Otilio Campos MD 03/29/2025 03:18 PM EDT
[2025-03-29 12:55] VITALS: BP 122/57; PULSE 86; RESP 16; TEMP 36.9; O2SAT 99; BMI 36.8
--- NOTE | 2025-03-29 12:58 | ED_ITS ---
HPI - Skin/Abscess/Foreign Bdy General Chief complaint: Wound/Laceration Stated complaint: cut on hand Time Seen by Provider: 03/29/25 14:45 Source: patient and RN notes reviewed Mode of arrival: ambulatory Limitations: no limitations History of Present Illness ED Provider: Amber Chakraborty PA-C HPI narrative: This is a 50-year-old female, with a past medical history of ALMA DELIA, anemia, hypertension, asthma, and PCOS, who presents emergency department with concerns of laceration to her left hand. She states that she accidentally lacerated her left hand in the webspace between her 1st and 2nd digit. She was trying to cut a frozen pork belly at home, when suddenly the knife slipped and accidentally punctured her in the left hand. She is unsure when her last tetanus shot was. No numbness or tingling. She is right-hand dominant. No other complaints or concerns at this time. Related Data Home Medications ?Medication ?Instructions ?Recorded ?Confirmed cetirizine 10 mg capsule (All Day 10 mg PO DAILY PRN A llergy Symptoms 11/14/20 02/28/25 Allergy (cetirizine)) cholecalciferol (vitamin D3) 125 125 mcg PO DAILY 10/2602/28/25 mcg (5,000 unit) capsule vitamin B complex (B 1 tab PO DAILY 11/14/2012/18 Complex-Vitamin B12 tablet) albuterol sulfate 90 mcg/actuation 2 puff PO Q4-6H PRN Shortness Of 01/14/22 02/28/25 aerosol inhaler (ProAir HFA) Breath Or Wheezing omeprazole 20 mg capsule,delayed 20 mg PO DAILY 02/28/25 release amlodipine 10 mg tablet 10 mg PO DAILY 12/04/2212/18 carvedilol 3.125 mg tablet 3.125 mg PO BID 12/04/22 fluticasone propionate 110 2 puff inhalation 12/04/22 02/28/25 mcg/actuation HFA aerosol inhaler (Flovent HFA) fluticasone propionate 50 1 - 2 spray intranasal QAM 0 12/04/22 02/28/25 mcg/actuation nasal spray,suspension polyethylene glycol 3350 17 17 g PO DAILY PRN Constipa tion 12/04/22 02/28/25 gram/dose oral powder (Miralax) iron dextran IV 12/23/22 02/28/25 diazepam 5 mg tablet (Valium) 5 mg PO TID PRN Anxiety 09/02/23 02/28/25 methocarbamol 750 mg tablet 750 mg PO QID 09/02/2312/18 tirzepatide (weight loss) 2.5 10 mg subcut QWEEK 02/2802/28/25 mg/0.5 mL subcutaneous pen injector (Zepbound) Previous Rx's ?Medication ?Instructions ?Recorded dicyclomine 20 mg tablet 20 mg PO QID PRN abdominal pain 06/16/20 #20 tabs docusate sodium 100 mg capsule 100 mg PO BID PRN Const ipation #14 09/03/21 (Colace) caps ibuprofen 600 mg tablet 600 mg PO TID PRN pain #14 t abs 02/13/22 bisacodyl 5 mg tablet,delayed 10 mg (2 x 5 mg) PO BEDT JOHNNA #14 11/17/22 release tabs hydromorphone 2 mg tablet 1 mg (1/2 x 2 mg) PO Q12H 7 days 09/28/23 (Dilaudid) #7 tabs meloxicam 15 mg tablet 15 mg PO DAILY #30 tabs 09/24 03/19 tramadol 50 mg tablet 50 mg PO Q12H PRN pain #30 t abs 11/05/23 nitrofurantoin 100 mg PO Q12H 7 days #14 ca ps 03/07/24 monohydrate/macrocrystals 100 mg capsule (Macrobid) acetaminophen 650 mg 650 mg PO Q8H PRN pain #30 t abs 06/29/24 tablet,extended release (Tylenol 8 Hour) oxycodone 5 mg tablet 5 mg PO Q6H PRN severe pain (scale 06/29/24 score 7-10) #7 tabs cephalexin 500 mg capsule 500 mg PO QID 5 days #20 cap s 03/29/25 Allergies Allergy/AdvReac Type Severity Reaction Status Date / Time amoxicillin Allergy Severe DIFFICULTY Verified 03/29/25 12:59 BREATHING clavulanic acid Allergy Severe DIFFICULTY Verified 03/29/25 12:59 BREATHNG nabumetone Allergy Severe Depression Verified 03/29/25 12:59 Penicillins Allergy Severe Shortness Verified 03/29/25 12:59 of Breath, itching sulfamethoxazole Allergy Severe DIFFICULTY Verified 03/29/25 12:59 BREATHING, anaphylaxis trimethoprim Allergy Severe DIFFICULTY Verified 03/29/25 12:59 BREATHING, anaphylaxis azithromycin Allergy Intermediate DIFFICULTY Verified 03/29/25 12:59 BREATHING hydrocodone Allergy Intermediate DIFFICULTY Verified 03/29/25 12:59 BREATHING levofloxacin Allergy Intermediate AGITATION-CAN Verified 03/29/25 12:59 TAKE IV, BUT NOT PO ondansetron (From Zofran) Allergy Intermediate r/t Verified 03/29/25 12:59 prolonged QT rizatriptan (RIZATRIPTAN) Allergy Intermediate HIVES Verified 02/28/25 09:46 diphenhydramine (From AdvReac Unknown told to Verified 02/28/25 09:46 BENADRYL) avoid From REGLAN Allergy Severe DYSPHORIA Uncoded 02/11/24 10:38 PMFSH Past Medical History Medical History Hx MRSA infection (~2019) Wears glasses Wears hearing aid in both ears Leukocytosis Ear piercing ALMA DELIA (obstructive sleep apnea) Personal history of COVID-19 Renal cyst Anemia Prolonged QT interval Murmur, cardiac Thyroid condition Essential hypertension Sacroiliac joint dysfunction of right side Asthma PCOS (polycystic ovarian syndrome) Surgical History Hx of arthroscopy of left knee (09/04/23) S/P fusion of sacroiliac joint (12/23/22) History of S/P left knee arthroscopy Status post arthroscopy of shoulder H/O gastric sleeve History of ankle surgery History of laparoscopic partial gastrectomy Social History Social History Household Members: Spouse, Family and Children Housing: House Are you a primary managed care coordinator to a significant other at home: Yes (5 year old daughter) Do you presently have visiting nurse or other home services: No Alcohol intake: former Patient Tobacco Use Status: Never used Tobacco e-Cigarette/Vaping Use: Never Used Advance Directives: No Advance Directives Information Provided: Yes Physical Exam Exam: Exam: General: Awake, alert, and oriented X3. No acute distress. HEENT: Normal inspection CVS: Normal heart rate and rhythm. Pulses normal. Respiratory: No respiratory distress Skin: Left hand, in the webspace of the 1st and 2nd digit, there is a 2 cm partial-thickness laceration noted, no active bleeding, no foreign body appreciated. Tender to palpation, full ROM, sensation intact. Extremities: See above Neuro: Oriented X 3. No motor deficit. No sensory deficit. Vital Signs: Vital Signs: Last Vital Signs Temp 98.5 F 03/29/25 12:55 Pulse 86 03/29/25 12:55 Resp 16 03/29/25 12:55 BP 122/57 L 03/29/25 12:55 Pulse Ox 99 03/29/25 12:55 O2 Del Method Room Air 03/29/25 12:55 BMI result Body Mass Index 36.8 Course Course Course Narrative: This is a Rapid Medical Examination (RME) performed by Monico eHr PA-C in triage. Full HPI, ROS, assessment and treatment plan per primary provider in the Main ED. 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 tdap not UTD. PE/vitals: 1cm linear lac to webbed space between 1 and 2 digits. bleeding controlled. Plan: tdap booster, lac repair Medications Administered Discontinued Medications Generic Name Dose Route Start Last Admin Trade Name Freq PRN Reason Stop Dose Admin Acetaminophen 975 mg 03/29/25 14:58 03/29/25 16:17 Acetaminophen 325 Mg Tablet PO 03/29/25 14:59 975 mg ONCE ONE Administration Bacitracin 1 appl 03/29/25 16:39 03/29/25 16:56 Bacitracin Oint 0.9 Gm Packet TOPICAL 03/29/25 16:40 1 appl ONCE ONE Administration Protocol Diphtheria/Tetanus/Acell Pertussis 0.5 ml 03/29/25 12:57 03/29/25 16:16 Diphth,Pertus(Acell),Tet Adult 0.5 Ml Syringe IM 03/29/25 12:58 0.5 ml .ONCE ONE Administration Lidocaine HCl 5 ml 03/29/25 15:43 03/29/25 16:16 Lidocaine Hcl 1 % Mpf 5 Ml Vial SUBCUT 03/29/25 15:44 5 ml ONCE ONE Administration Medical Decision Making Medical Decision Making [facility] Narrative: This is a 50-year-old female who presents emergency department with complaints of laceration noted between the 1st 2nd digit of her left hand. This was accidental. This happened today. This occurred after trying to cut open a pork belly. On arrival, vital signs within normal limits. She is speaking full sentences under no acute distress. She is right-hand dominant. Tdap was updated in the department. X-rays were obtained given pain, no foreign body or bony involvement noted. Wound was cleansed extensively, and closed using 3 -0 nylon sutures. Patient given wound care instructions. She is started on Keflex given working with pork belly. Given strict return precautions, patient understands and agrees with plan, patient stable for discharge. Differential Diagnosis Differential Diagnoses: The differential diagnosis associated with the presentation includes Laceration, foreign body, abrasion, puncture wound Radiology Impression Discussion of test interpretation with radiology: I have reviewed the radiologist's reading. Radiologist Impression: XR/XR hand LT min 3V IMPRESSION: 1. No acute findings of the left hand. Electronically signed by: Otilio Campos MD 03/29/2025 03:18 PM EDT RP Dictated By: Otilio Campos MD Procedures Laceration Laceration 1: Site: hand Side (If applicable): left Size (cm): 2 Description: linear Depth: simple, single layer Local Anesthetic: lidocaine 1% Amount of anesthesia used (mL): 4 Pre-repair: wound explored, irrigated extensively and deep structures intact Skin layer closed with: nylon Size (cm): 5-0 Number of sutures: 3 Technique: simple, interrupted Discharge Plan Discharge Clinical Impression: Laceration of hand Qualifiers: Encounter type: initial encounter Foreign body presence: without foreign body Laterality: left Qualified Code(s): S61.412A - Laceration without foreign body of left hand, initial encounter Patient Disposition: Home, Self-Care Instructions: Care For Your Stitches (ED), Laceration (ED) Additional Instructions: You were seen in the emergency department after accidentally lacerating your left hand. We had placed 3 sutures in your left hand. You need to have the sutures removed in 10-14 days. You may return here, or follow-up of an urgent care your primary care to have these removed. Your x-rays do not show any bony abnormalities or foreign body. We are placing you on prophylactic antibiotics given dirty wound, please take prescribed medication as directed, finish the entire course. If any new or worsening symptoms occur including but not limited to increased redness, swelling, pain, please seek emergent care. We also updated your tetanus shot in the department today. Please update your records. You may alternate between ibuprofen and or Tylenol as needed for pain and symptoms. Prescriptions: New cephalexin 500 mg capsule 500 mg PO QID 5 Days Qty: 20 0RF No Action bisacodyl 5 mg tablet,delayed release (DR/EC) 10 mg PO BEDTIME Qty: 14 0RF hydromorphone [Dilaudid] 2 mg tablet 1 mg PO Q12H 7 Days Qty: 7 0RF Rx Instructions: Partial Fill upon patient request. meloxicam 15 mg tablet 15 mg PO DAILY Qty: 30 0RF tramadol 50 mg tablet 50 mg PO Q12H PRN (Reason: pain) Qty: 30 0RF dicyclomine 20 mg tablet 20 mg PO QID PRN (Reason: abdominal pain) Qty: 20 0RF docusate sodium [Colace] 100 mg capsule 100 mg PO BID PRN (Reason: Constipation) Qty: 14 0RF ibuprofen 600 mg tablet 600 mg PO TID PRN (Reason: pain) Qty: 14 0RF diazepam [Valium] 5 mg tablet 5 mg PO TID PRN (Reason: Anxiety) Rx Instructions: partial fill is okay methocarbamol 750 mg tablet 750 mg PO QID nitrofurantoin monohyd/m-cryst [Macrobid] 100 mg capsule 100 mg PO Q12H 7 Days Qty: 14 0RF Rx Instructions: must administer with a meal/food polyethylene glycol 3350 [Miralax] 17 gram/dose powder 17 g PO DAILY PRN (Reason: Constipation) carvedilol 3.125 mg tablet 3.125 mg PO BID amlodipine 10 mg tablet 10 mg PO DAILY fluticasone propionate 50 mcg/actuation spray,suspension 1 - 2 spray intranasal QAM fluticasone propionate [Flovent HFA] 110 mcg/actuation HFA aerosol inhaler 2 puff INHALATION iron dextran IV Patient Comments: last dose- last year acetaminophen [Tylenol 8 Hour] 650 mg tablet extended release 650 mg PO Q8H PRN (Reason: pain) Qty: 30 0RF oxycodone 5 mg tablet 5 mg PO Q6H PRN (Reason: severe pain (scale score 7-10)) Qty: 7 0RF Rx Instructions: Partial Fill upon patient request. vitamin B complex [B Complex-Vitamin B12] Tablet 1 tab PO DAILY cholecalciferol (vitamin D3) 125 mcg (5,000 unit) capsule 125 mcg PO DAILY All Day Allergy (cetirizine) 10 mg capsule 10 mg PO DAILY PRN (Reason: Allergy Symptoms) albuterol sulfate [ProAir HFA] 90 mcg/actuation HFA aerosol inhaler 2 puff PO Q4-6H PRN (Reason: Shortness Of Breath Or Wheezing) omeprazole 20 mg capsule,delayed release(DR/EC) 20 mg PO DAILY Zepbound 2.5 mg/0.5 mL pen injector 10 mg subcut QWEEK Rx Instructions: for 4 weeks Stand Alone Forms: Work/School Release Print Language: Japanese
[2025-03-29] MEDS: Diphth,Pertus(ACell),Tet Adult 0.5 ML SYRINGE IM (16:16)
[2025-03-29] MEDS: Lidocaine HCl 1 % MPF 5 ML VIAL SUBCUT (16:16)
--- OUTSIDE RECORDS SUMMARY | 2025-03-29 17:04 | XMS_ITS | Encounter Summary ---
Author Organization [employer] Address [address] [place] [address] [address] [address] Care Team Providers Care Solid State Tester Name Role Phone Porfirio Goodman MD Primary Care Prov ider Luli Sosa RN Unavailable [phone] Marino Wiseman Unavailable Jeanine Montague Unavailable Reason for Visit * Reason Comments Med Refill Encounter Details Date Type Department Care Team ([facility] Contact Info) Description 12/17/2022 Refill [facility] MED [facility] PEDS [address] [place], [place] [phone] Porfirio Goodman MD [address] [place], [place] [phone] Post-nasal drip Social History Tobacco Use Types [...] drip documented in this encounter Care Teams Solid State Tester Relationship Specialty Start Date End Date Porfirio Goodman MD [address] [place] [address] PCP - General Internal Medicine 12/05/19 Luli Sosa RN [address] [place] [address] Registered Nurse Family Medicine 12/12/24 12/12/24 Marino Wiseman 12/12/24 12/12/24 Jeanine Montague 02/23/25 Amber Mittal Clinical Biochemical GeneticistSales Special Agent 04/20/24 documented as of this encounter
--- OUTSIDE RECORDS SUMMARY | 2025-03-29 17:04 | XMS_ITS | Encounter Summary ---
Author Organization [facility] [employer] Address [address] [place] [address] Care Team Providers Care Lay Out Inspector Name Role Phone Porfirio Goodman MD Primary Care Prov ider Luli Sosa RN Unavailable [phone] Marino Wiseman Unavailable Jeanine Montague Unavailable Encounter Details Date Type Department Care Team (Late st Contact Info) Description 08/25/2024 Orders Only [facility] MEDICINE [address] [place] [address] Provider, MD Russell Social History Tobacco Use Types Packs/Day Years [...] HM MAMMOGRAPHY Routine 05/04/2024 10:27 AM EDT documented in this encounter Results * Hm Mammography (05/04/2024 10:27 AM EDT) Anatomical Region Laterality Modality Other Historical Provider HEALTH MAINTENANCE Final Result documented in this encounter Visit Diagnoses Not on filedocumented in this encounter Care Teams Lay Out Inspector Relationship Specialty Start Date End Date Porfirio Goodman MD [address] [place] [address] PCP - General Internal Medicine 12/05/19 Luli Sosa RN [address] [place] [address] Registered Nurse Family Medicine 12/12/24 12/12/24 Marino Wiseman 12/12/24 12/12/24 Jeanine Montague 02/23/25 Amber Mittal Behavioral Intervention SpecialistProduct Development Actuary 04/20/24 documented as of this encounter
--- OUTSIDE RECORDS SUMMARY | 2025-03-29 17:04 | XMS_ITS | Encounter Summary ---
Author Organization [employer] Address [address] [facility] [address] [place] [address] Care Team Providers Care Traffic Line Painter Name Role Phone Porfirio Goodman MD Primary Care Prov ider Luli Sosa RN Unavailable [phone] Marino Wiseman Unavailable Jeanine Montague Unavailable Reason for Visit * Reason Onset Date Comments Med Refill 11/09/2024 Encounter Details Date Type Department Care Team (Late st Contact Info) Description 11/09/2024 Refill [facility] MED & PEDS [address] [place], [place] [phone] Porfirio Goodman MD [address] [place], [place] [phone] Social History Tobacco Use Types Packs/Day Years Used Date Smoking Tobacco: Never Passive Smoke Exposure: Never Smokeless Tobacco: Never Alcohol Use Standard Drinks/Week Comments Never 0 (1 standard drink = 0.6 oz pur e alcohol) Housing Stability Answer Date Recorded What is your housing situation today? I have mike sing 02/01/[address] you li [...] on filedocumented in this encounter Care Teams Traffic Line Painter Relationship Specialty Start Date End Date Porfirio Goodman MD [address] [place] [address] PCP - General Internal Medicine 12/05/19 Luli Sosa RN [address] [place] [address] Registered Nurse Family Medicine 12/12/24 12/12/24 Marino Wiseman 12/12/24 12/12/24 Jeanine Montague 02/23/25 Amber Mittal Quality Assurance Lab TechnicianCivil Engineering Teacher 04/20/24 documented as of this encounter
--- OUTSIDE RECORDS SUMMARY | 2025-03-29 17:04 | XMS_ITS | Encounter Summary ---
Author Organization [employer] Address [address] [facility] [address] [place] [address] Care Team Providers Care Screen Repairer Crusher Name Role Phone Porfirio Goodman MD Primary Care Prov ider Luli Sosa RN Unavailable [phone] Marino Wiseman Unavailable Jeanine Montague Unavailable Reason for Visit * Reason Onset Date Comments Referral 04/19/2024 Encounter Details Date Type Department Care Team (Late st Contact Info) Description 04/19/2024 Telephone [facility] MED[facility]INE [address] [place] [address] Porfirio Goodman MD [address] [place], [place] [phone] Referral Social History Tobacco Use Types Packs/Day Years Used Date Smoking Tobacco: Never Passive Smoke Exposure: Never Smokeless Tobacco: Never Alcohol Use Standard Drinks/Week Comments Never 0 (1 standard drink = 0.6 oz pur e alcohol) Housing Stability Answer Date Recorded What is your housing situation today? I have miek sing 02/01/[address] you [...] Swartz - 04/19/2024 11:25 AM EDT Tc from Amber at [facility] calling to request a new referral for sleep study due toprevious one being documented in this encounter Plan of Treatment Not on file documented as of this encounter Visit Diagnoses Not on filedocumented in this encounter Care Teams Screen Repairer Crusher Relationship Specialty Start Date End Date Porfirio Goodman MD [address] [place] [address] PCP - General Internal Medicine 12/05/19 Luli Sosa RN [address] [place] [address] Registered Nurse Family Medicine 12/12/24 12/12/24 Marino Wiseman 12/12/24 12/12/24 Jeanine Montague 02/23/25 Amber Mittal Equipment Operation InstructorMolecular Biologist 04/20/24 documented as of this encounter
--- OUTSIDE RECORDS SUMMARY | 2025-03-29 17:04 | XMS_ITS | Encounter Summary ---
Author Organization [employer] Address [address] [facility] 7t [place] [address] Care Team Providers Care Alumni Relations Manager Name Role Phone Porfirio Goodman MD Primary Care Prov ider Luli Sosa RN Unavailable [phone] Marino Wiseman Unavailable Jeanine Montague Unavailable Encounter Details Date Type Department Care Team (Late st Contact Info) Description 10/19/2024 Telephone [facility] MED[facility]INE [address] [place] [address] Porfirio Goodman MD [address] [place] [address] Social History Tobacco Use Types Packs/Day Years [...] hasn't received a call. Contact pt at [phone] documented in this encounter Plan of Treatment Not on file documented as of this encounter Visit Diagnoses Not on filedocumented in this encounter Care Teams Alumni Relations Manager Relationship Specialty Start Date End Date BaerPorfirio Escobar MD [address] [place] [address] PCP - General Internal Medicine 12/05/19 Luli Sosa RN [address] [place] [address] Registered Nurse Family Medicine 12/12/24 12/12/24 Marino Wiseman 12/12/24 12/12/24 Jeanine Montague 02/23/25 Amber Mittal Respiratory Care PractitionerPredictive Maintenance Technician 04/20/24 documented as of this encounter
--- OUTSIDE RECORDS SUMMARY | 2025-03-29 17:04 | XMS_ITS | Encounter Summary ---
Author Organization [employer] Address [address] [facility] 7 [place] [address] Care Team Providers Care Manager Crisis Name Role Phone Porfirio Goodman MD Primary Care Prov ider Luli Sosa RN Unavailable [phone] Marino Wiseman Unavailable Jeanine Montague Unavailable Reason for Visit * Reason Onset Date Comments Medication Question 08/02/2024 Encounter Details Date Type Department Care Team ([facility] st Contact Info) Description 08/02/2024 Telephone [facility] CHC MED & PEDS [address] [place], [place] [phone] Porfirio Goodman MD [address] [place], [place] [phone] Medication Question Social History Tobacco Use Types [...] on filedocumented in this encounter Care Teams Manager Crisis Relationship Specialty Start Date End Date Porfirio Goodman MD [address] [place] [address] PCP - General Internal Medicine 12/05/19 Luli Sosa RN [address] [place] [address] Registered Nurse Family Medicine 12/12/24 12/12/24 Marino Wiseman 12/12/24 12/12/24 Jeanine Montague 02/23/25 Amber Mittal Log RafterTool Crib Manager 04/20/24 documented as of this encounter
--- OUTSIDE RECORDS SUMMARY | 2025-03-29 17:04 | XMS_ITS ---
Author Organization [employer] Address [address] [place] [address] Care Team Providers Care Youth Corrections Officer Name Role Phone Porfirio Goodman MD Primary Care Prov ider Jeanine Montague Unavailable CH[facility] Complex Status:Outreach In Progress (Enrolling) Start date:02/23/2025 Enrollment reason:ADT Feed Overview CP Assigned Patient- Pt went to [facility] on 02/22/25. Case Team Name Relationship Phone Jeanine Montague(Responsible Staff) [phone] Continued Care and Services Coordination
--- OUTSIDE RECORDS SUMMARY | 2025-03-29 17:04 | XMS_ITS | Clinical Summary ---
Author Organization [facility] Address [address] [place] [phone] Phone Care Team Providers Care Audio Production Manager Name Role Phone Porfirio Goodman MD [...] Active ferrous sulfate 325 mg (65 mg bad river band iron) tablet Take 1 tablet by mouth [...] VACCINE (1 - 2023-2 5 season) 2024 PNEUMOCOCCAL VACCINES (50+ years) (2 of 2 - PCV) 2025 08/01/2009 ZOSTER VACCINES (1 of 2) 2025 LIPID PANEL 10/14/2027 10/13/2022 Adult Td,Tdap Booster 04/26/2028 04/26/2018 , 01/14/2018, 10/22/2010 SMOKING STATUS SCREENING (On ce After 26 [...] ACO C3 ACO C3 ACO Care Teams Audio Production Manager Relationship Specialty Start Date End Date Porfirio Goodman MD [address] [place] [address] PCP - General Internal Medicine 09/18/21 Additional Source Comments The information contained in this document represents components of the legal health record. It is not the complete legal health record.[facility]
--- OUTSIDE RECORDS SUMMARY | 2025-03-29 17:04 | XMS_ITS | Encounter Summary ---
Author Organization [facility] Address [address] [place] [phone] Phone Care Team Providers Care Loading Unit Operator Crimping Name Role Phone Porfirio Goodman MD Primary Care Prov ider Encounter Details Date Type Department Care Team (Late st Contact Info) Description 11/01/2021 Procedure Pass [facility], [address] [address] Social History Tobacco Use Types Packs/Day Years Used Date Smoking Tobacco: Never Smokeless Tobacco: Never Comments Unknown Sex and Gender Information Value Date Recorded Sex Assigned at Female 05/13/2021 2:08 PM EDT Legal Sex Female 1:54 PM EDT Gender Identity Female 05/13/2021 2:08 PM EDT Sexual Orientation Straight 05/13/2021 2: 08 PM EDT documented as of this encounter Plan of Treatment Not on file documented as of this encounter Visit Diagnoses Not on filedocumented in this encounter Care Teams Loading Unit Operator Crimping Relationship Specialty Start Date End Date Porfirio Goodman MD [address] [place] [address] PCP - General Internal Medicine 09/18/21 documented as of this encounter Additional Source Comments The information contained in this document represents components of the legal health record. It is not the complete legal health record.[facility]
--- OUTSIDE RECORDS SUMMARY | 2025-03-29 17:04 | XMS_ITS | Clinical Summary ---
Author Organization [employer] Address [address] [place] [address] 7 [place] [address] Care Team Providers Care Stage Electrician Helper Name Role Phone Porfirio Goodman MD Primary Care Prov ider Jeanine Montague Unavailable Allergies Active Allergy Reactions Criticality Noted Date [...] morning and at bedtime. 12 g 2 022 Active B Complex Vitamins (vitamin B complex) tablet Take 1 tablet by mouth in the morning. 023 Active diazePAM (Valium) 5 MG tablet Take 5 mg by mouth if needed in the morning, at noon, and at bedtime. 022 Active LORazepam (Ativan) 0.5 MG tablet Take 0.25 mg by mouth. 018 Active polyethylene glycol, PEG, 3350 (Glycolax) 17 GM/SCOOP powder TAKE 17 GRAMS BY MOUTH DAILY 022 Active famotidine (Pepcid) 20 MG tabletIndicatio ns:Other chest pain Take 1 tablet (20 mg) by mouth 2 times daily. 60 tablet 11 023 Active Diclofenac Sodium 1 % gel To apply to the affected area 3 times a day 100 g 023 Active cholecalciferol (Vitamin D-3) 25 MCG (1000 UT) tabletIndicatio ns:Low vitamin D level Take 1 tablet (25 mcg) by mouth in the morning. 60 tablet 11 024 Active triamcinolone (Kenalog) 0.1 % ointment APPLY TOPICALLY TWICE DAILY X 1 WEEK TO RASH ON RIGHT FOOT 15 g 024 Active hydroCHLOROthia zide (HYDRODiuril) 25 MG tabletIndicatio ns:Essential hypertension TAKE 1 TABLET(25 MG) BY MOUTH IN THE MORNING 90 tablet 3 024 Active capsaicin (Zostrix) 0.025 % creamIndication s:Chronic pain of right thumb Apply topically 2 times daily. 56.6 g 024 2024 Active propranolol LA (Inderal LA) 60 MG 24 hr capsule Take 1 capsule (60 mg) by mouth Once per day. Do not crush, chew, or split. 30 capsule 11 024 2024 Active Vit-Fe Fumarate-FA ( Vitamins) 28-0.8 MG tablet TAKE 1 TABLET BY MOUTH DAILY 90 tablet Active amphetamine-dex troamphetamine (Adderall) 10 MG tablet Take 1 tablet (10 mg) by mouth 2 times daily. 60 tablet Active fluticasone (Flonase) 50 MCG/ACT nasal sprayIndication s:Post-nasal drip Administer 2 sprays into each nostril Once per day. Shake gently. Before first use, prime pump. After use, clean tip and replace cap. 48 g 3 Active fexofenadine (Sarah) 180 MG tablet Take 1 tablet (180 mg) by mouth Once per day. 90 tablet 3 2025 Active meclizine (Antivert) 25 MG tablet Take 1 tablet (25 mg) by mouth if needed in the morning, at noon, in the evening, and at bedtime for dizziness. 60 tablet 1 2025 Active omeprazole (PriLOSEC) [address] capsuleIndicati ons:Gastroesoph ageal reflux disease without esophagitis TAKE 1 CAPSULE BY MOUTH EVERY DAY BEFORE A MEAL 90 capsule Active Blood Pressure kit 1 kit Once per day. 1 kit Active Tirzepatide-Martin ght Management (Zepbound) 10 MG/0.5ML solution auto-injector Inject 0.5 mL (10 mg) under the skin 1 (one) time per week. 2 mL 3 Active Ventolin HFA 108 (90 Base) MCG/ACT inhaler INHALE 2 PUFFS INTO THE LUNGS EVERY 2 TO 6 HOURS NEEDED 18 g Active Acetaminophen Extra Strength 500 MG tablet TAKE 2 TABLETS BY MOUTH EVERY 6 HOURS NEEDED FOR PAIN OR FEVER 30 tablet Active docusate sodium (Colace) 100 MG capsule TAKE ONE CAPSULE BY MOUTH TWICE DAILY NEEDED FOR CONSTIPATION 180 capsule Active linaCLOtide (Linzess) 145 MCG capsule Take 1 capsule (145 mcg) by mouth before breakfast. Do not crush or chew. 30 capsule 11 025 2025 Active methocarbamol (Robaxin) 750 MG tablet TAKE 1 TABLET BY MOUTH FOUR TIMES DAILY NEEDED 60 tablet 3 025 Active methocarbamol (Robaxin) 750 MG tablet TAKE 1 TABLET BY MOUTH FOUR TIMES DAILY NEEDED 60 tablet 3 025 2024 Discontinued(R eorder (will not trigger notification to Pharmacy)) Active Problems Problem Noted Date Diagnosed Date Class 2 severe obesity due t o excess calories with serious comorbidity and body mass index (BMI) of 38.0 to 38.9 in adult 11/17/2024 Assessment & Plan (01/19/2025 9:09 AM EDT): Patient tolerating 7.5mg, will increase dose to 10mg, she has been losing weight, has been exercising and improving her diet, will follow up in 3 months Assessment & Plan (11/17/2024 6:03 PM EDT): [...] meniscus of left knee, current Overview (07/27/2023): MRI left knee October 2022 demonstrated inner margin radial tear of medial meniscus anterior horn measuring 0.8cm in ML dimension and involving approx 40% of the meniscal thickness. Also noted possible grade 1 sprain of MCL. Mild patellofemoral OA, small joint effusion and trace Howell's cyst. Evaluated by ortho, and reports cheduled for surgery with Dr. Puga at [facility] on 08/14/23. Assessment & Plan (07/27/2023 [...] Pt not opioid naive -Follow up with [facility] Ortho as scheduled -Cont with symptomatic [...] is [facility], refers able to bear weight, but it [...] pain -Continues with the following med regimen: Amlodipine 10mg daily hydrochlorothiazide 25mg daily -Cont low sodium diet [...] Encounters Date Type Department Care Team Description 03/29/2025 Orders Only [facility] External Provider, [facility] 03/17/2025 10:15 AM EDT Telemedicine [facility] [address] [place] [address] Porfirio Goodman MD Weakness (Primary Dx) 03/17/2025 Refill [facility] [address] [facility] [facility] [place] [address] Leidy Morelos DO 03/17/2025 Travel 03/16/2025 Telephone [facility] [address] [place] [address] Porfirio Goodman MD chart prep 03/13/2025 Refill [facility] [address] [place] [address] Porfirio Goodman MD 02/28/2025 Telephone [facility] [address] [place] [address] Porfirio Goodman MD Med Refill 02/27/2025 Patient Outreach [facility] [address] [place] [address] Porfirio Goodman MD Care Coordination (Communication to PT assigned CP Coordinator) 02/24/2025 Refill [facility] [address] [place] [address] Porfirio Goodman MD 02/24/2025 Refill [facility] [address] [place] [address] Castillo Nunez MD 02/23/2025 Patient Outreach [facility] [address] [place] [address] Porfirio Goodman MD Care Coordination ([facility] ED F/U) 02/23/2025 Patient Outreach [facility] [address] [place] [address] Porfirio Goodman MD Care Coordination (CP Care Coordination Chart Review) 02/23/2025 Patient Outreach [facility] [address] [place] [address] Porfirio Goodman MD 01/29/2025 Refill [facility] [address] [place] [address] Porfirio Goodman MD 01/19/2025 8:30 AM EDT Telemedicine [facility] [address] [place] [address] Porfirio Goodman MD Class 2 severe obesity due to excess calories with serious comorbidity and body mass index (BMI) of 38.0 to 38.9 in adult ([facility]) (Primary Dx); Screening for colon cancer 01/19/2025 Travel 01/18/2025 Telephone [facility] [address] [place] [address] Porfirio Goodman MD chart prep 01/03/2025 1:00 PM EDT Office Visit [facility] [address] [address] Clarice Cox MD Wrist swelling, left (Primary Dx); Left wrist pain 01/03/2025 Travel 01/03/2025 Refill [facility] [address] [place] [address] Porfirio Goodman MD Gastroesophageal reflux disease without esophagitis from Last 3 Months Immunizations Immunization Administration [...] t he electric, gas, oil or water [employer] threatened to shut off services in your [...] Sign Reading Time Taken Comments Blood Pressure 156/84 01/03/2025 11:43 AM EDT Pulse 80 01/03/2025 11:43 AM EDT Temperature 37.2 C (98.9 F) 01/03/2025 11:43 AM EDT Respiratory Rate 20 01/03/2025 11:43 AM EDT Oxygen Saturation 98% 01/03/2025 11:43 AM EDT Inhaled Oxygen Concentration - - Weight 97 kg (213 lb 12.8 oz) 01/19/2025 8:56 AM EDT Height 157.5 cm (5' 2 ) 01/03/2025 11:43 AM EDT Body Mass Index 39.1 01/03/2025 11:43 AM EDT Plan of Treatment Health Maintenance Due Date Last Done Comments CT Colonography 1975 Colonoscopy 1975 Colorectal Cancer Screening 1975 FIT DNA/Cologuard 1975 FIT 1975 FOBT 1975 Sigmoidoscopy 1975 Disability Screening 1975 Alcohol/Substance Use Screening 1987 Family Planning (PISQ) 1990 Hepatitis B Vaccines (1 of 3 - 19+ 3-dose series) 1994 Pneumococcal Vaccine: 50+ Years (2 of 2 - PCV) 08/01/2010 08/01/2009 Depression Screening 08/27/2023 08/27/2022, 08/27/2022 Cervical Cancer Screening 10/29/2023 HPV/Cotest 10/29/2023 10/28/2018 Pap Smear 10/29/2023 10/28/2018 SDOH Screening 01/31/2025 02/01/2024 Zoster Vaccines (1 of 2) 2025 COVID-19 Vaccine (1 - 2023-2 5 season) 2025 Influenza Vaccine (#1) 2025 8, 04/15/2013, 04/05/2012 Tobacco Screening 12/08/2025 12/08/2024 Mammogram 05/04/2026 05/04/2024 [...] Procedure Name Priority Date/Time Associated Diagnosis Comments XR HAND 3+ VIEWS LEFT Routine 03/29/2025 2:17 PM EDT XR WRIST 3+ VIEWS LEFT Routine 01/09/2025 4:15 PM EDT URIC ACID Routine 01/03/2025 12:11 PM EDT Wrist swelling, left LYME DISEASE AB W/REFL TO BLOT (IGG, IGM) Routine 01/03/2025 12:11 PM EDT Wrist swelling, left HM MAMMOGRAPHY Routine 05/04/2024 10:27 AM EDT HEPATITIS PANEL, GENERAL Routine 10/13/2022 11:02 AM EDT Routine screening for STI (sexually transmitted infection) HIV 1 RNA, QN PCR W/RFL ELLY (RTI,PI,INTEGRASE) Routine 10/13/2022 11:02 AM EDT Routine screening for STI (sexually transmitted infection) LIPID PANEL, STANDARD Routine 10/13/2022 11:02 AM EDT Routine general medical examination at a health care facility HM PAP/HPV Routine 10/28/2018 from Last 3 Months or Most Recently Relevant to Health Maintenance Results * XR Hand 3+ Views Left (03/29/2025 2:17 PM EDT) Anatomical Region Laterality Modality Upper Extremities, Hand Left Radiogra phic Imaging 03/29/2025 2:17 PM EDT Narrative 03/29/2025 3:20 PM EDT [address] [address] XRay Report Signed Patient: Kyle Pool MR#: [id number] : 1975 Acct:[id number] Age/Sex: 50 / F ADM Date: 03/29/25 Loc: HO.ED Attending Dr: Ordering Physician: Amber Chakraborty Date of Service: 03/29/25 Procedure(s): XR hand LT min 3V Accession Number(s): [id number] cc: Porfirio Goodman MD; Amber Chakraborty Reason for Exam: laceration, r/o FB vs bony injury EXAMINATION: XR HAND, LEFT CLINICAL INFORMATION: laceration, r/o FB vs bony injury COMPARISON: 05/10/2021. TECHNIQUE: PA, lateral, and oblique views of the left hand. FINDINGS: No fracture, dislocation, or suspicious bone lesion. Normal bone mineralization. Normal alignment. Joint spaces are preserved. No significant arthropathy. Soft tissues demonstrate no evidence of radiopaque foreign body or significant soft tissue swelling. XR/XR hand LT min 3V IMPRESSION: 1. No acute findings of the left hand. Electronically signed by: Otilio Campos MD 03/29/2025 03:18 PM EDT Dictated By: Otilio Campos MD Signed By: <Electronically signed by Otilio Campos MD in OV> 03/29/25 1518 DD/ 1417 TD/TT: 03/29/25 1514 Sergeant Of Officers: Procedure Note Donotuseinterpreter, Image - 03/29/[address] [address] XRay Report Signed Patient: Kyle Pool AMR#: [id number] : 1975Acct:[id number] Age/Sex: 50 / FADM Date: 03/29/25 Loc: HO.ED Attending Dr: Ordering Physician: Amber Chakraborty Date of Service: 03/29/25 Procedure(s): XR hand LT min 3V Accession Number(s): [id number] cc: Porfirio Goodamn MD; Amber Chakraborty Reason for Exam: laceration, r/o FB vs bony injury EXAMINATION: XR HAND, LEFT CLINICAL INFORMATION: laceration, r/o FB vs bony injury COMPARISON: 05/10/2021. TECHNIQUE: PA, lateral, and oblique views of the left hand. FINDINGS: No fracture, dislocation, or suspicious bone lesion. Normal bone mineralization. Normal alignment. Joint spaces are preserved. No significant arthropathy. Soft tissues demonstrate no evidence of radiopaque foreign body or significant soft tissue swelling. XR/XR hand LT min 3V IMPRESSION: 1. No acute findings of the left hand. Electronically signed by: Otilio Campos MD 03/29/2025 03:18 PM EDT Dictated By: Otilio Campos MD Signed By: <Electronically signed by Otilio Campos MD in OV> 03/29/25 1518 DD/ 1417 TD/TT: 03/29/25 1514 Sergeant Of Officers: [facility] External Provider IMG XR PROCEDURES Final Result * XR Wrist 3+ Views Left (01/09/2025 4:15 PM EDT) Anatomical Region Laterality Modality Upper Extremities, Wrist Left Radiogr aphic Imaging 01/09/2025 4:15 PM EDT Narrative 01/09/2025 4:34 PM EDT [address] [address] XRay Report Signed Patient: Kyle Pool MR#: [id number] : 1975 Acct:[id number] Age/Sex: 49 / F ADM Date: 01/09/25 Loc: HO.ED Attending Dr: Ordering Physician: Generic ED Physician Date of Service: 01/09/25 Procedure(s): XR wrist LT min 3V Accession Number(s): [id number] cc: Porfirio Goodman MD; Generic ED Physician EXAMINATION: XR WRIST, LEFT CLINICAL INFORMATION: fall COMPARISON: None available. TECHNIQUE: PA, lateral, and oblique views of the left wrist. FINDINGS: The bones and soft tissues are normal. No fracture. Alignment is anatomic with normal joint spaces. No erosions or abnormal soft tissue calcifications. XR/XR wrist LT min 3V IMPRESSION: Normal left wrist. Electronically signed by: Otilio Campos MD 01/09/2025 04:31 PM EDT Dictated By: Otilio Campos MD Signed By: <Electronically signed by Otilio Campos MD in OV> 01/09/25 1631 DD/ 1615 TD/TT: 01/09/25 1620 Sergeant Of Officers: Procedure Note Donotuseinterpreter, Image - 01/09/[address] [address] XRay Report Signed Patient: Kyle Pool AMR#: [id number] : 1975Acct:[id number] Age/Sex: 49 / FADM Date: 01/09/25 Loc: HO.ED Attending Dr: Ordering Physician: Generic ED Physician Date of Service: 01/09/25 Procedure(s): XR wrist LT min 3V Accession Number(s): [id number] cc: Porfirio Goodman MD; Generic ED Physician EXAMINATION: XR WRIST, LEFT CLINICAL INFORMATION: fall COMPARISON: None available. TECHNIQUE: PA, lateral, and oblique views of the left wrist. FINDINGS: The bones and soft tissues are normal. No fracture. Alignment is anatomic with normal joint spaces. No erosions or abnormal soft tissue calcifications. XR/XR wrist LT min 3V IMPRESSION: Normal left wrist. Electronically signed by: Otilio Campos MD 01/09/2025 04:31 PM EDT RP Dictated By: Otilio Campos MD Signed By: <Electronically signed by Otilio Campos MD in OV> 01/09/25 1631 DD/ 1615 TD/TT: 01/09/25 1620 Sergeant Of Officers: [facility] External Provider IMG XR PROCEDURES Final Result * Lyme Disease Ab with Reflex to Blot (IgG, IgM) (01/03/2025 12:11 PM EDT) Lyme Antibody Screen <0.90 index [facility] Comment:Index Interpretatio n ----- < 0.90 Negative 0.90-1.09 Equivocal > 1.09 PositiveAs recommended by the Food and Drug Administration(FDA), all samples with positive or equivocalresults in a Borrelia burgdorferi antibody screenwill be tested using a blot method. Positive orequivocal screening test results should not beinterpreted as truly positive until verified as suchusing a supplemental assay (e.g., B. burgdorferi blot).The screening test and/or blot for B. burgdorferiantibodies may be falsely negative in early stagesof Lyme disease, including the period when erythemamigrans is apparent.THIS TEST WAS PERFORMED AT:[facility] [place] [id number] MEYER MD Lyme Blot TNP [facility] 01/03/2025 12:1 1 PM EDT 01/03/2025 1:20 PM EDT Clarice Cox MD LAB BLOOD ORDERABLES Final Result [facility] [address] [place] [address] [phone] * Uric acid (01/03/2025 12:11 PM EDT) Uric Acid 2.7 2.4 - 5.7 mg/dL [facility] Blood Venous blood specimen / Unknown 01/03/2025 12:11 PM EDT 01/03/2025 1:20 PM EDT Clarice Cox MD LAB BLOOD ORDERABLES Final Result [facility] [address] [place] [address] [phone] * Hm Mammography (05/04/2024 10:27 AM EDT) Anatomical Region Laterality Modality Other Russell Looney MD HEALTH MAINTENANCE Final Result * HIV-1 RNA, Quantitative, Real-Time PCR with Reflex to Genotype (RTI, PI, Integrase) (10/13/2022 11:02 AM EDT) HIV 1 RNA, QN PCR NOT DETECTED copies/mL [facility], HIV 1 RNA, QN PCR NOT DETECTED Log copies/mL [facility], Comment: REFERENCE RANGE: NOT DETECTED copies/mL NOT DETECTED Log copies/mL This test was performed using Real-Time Polymerase Chain Reaction. Reportable range is 20 to 10,000,000 copies/mL (1.30-7.00 Log copies/mL). 10/13/2022 11:0 2 AM EDT 10/13/2022 11:02 AM EDT Meenakshi JOHN LAB BLOOD ORDERABLES Final Resu lt [facility] [address] [facility], [place] [address] [facility], [address] [place] [address] * Hepatitis Panel, General (10/13/2022 11:02 AM EDT) Hepatitis A Antibody Total NON-REACT PAUL NON-REACT PAUL [facility] Comment: For additional information, please refer to http://Bullhorn/faq/COG486 (This link is being provided for informational/ educational purposes only.) Hepatitis B Surface Antibody QL NON-REACT PAUL NON-REACT PAUL [facility] Hepatitis B Surface Ag NON-REACT PAUL NON-REACT PAUL [facility] Hepatitis B Core Antibody Total NON-REACT PAUL NON-REACT PAUL [facility] Hepatitis C Antibody NON-REACT PAUL NON-REACT PAUL [facility] Index 0.05 <1.00 [facility] Comment: HCV antibody was non-reactive. There is no laboratory evidence of HCV infection. In most cases, no further action is required. However, if recent HCV exposure is suspected, a test for HCV RNA (test code 48874) is suggested. For additional information please refer to http://Smart [employer] Grid.VIPstore.com/faq/NNN20r4 (This link is being provided for informational/ educational purposes only.) 10/13/2022 11:0 2 AM EDT 10/13/2022 11:02 AM EDT Meenakshi Dyson [facility] LAB BLOOD ORDERABLES Final Resu lt [facility] [address], [place] [address] [facility] [address] [place] [address] * (ABNORMAL) Lipid Panel, Standard (10/13/2022 11:02 AM EDT) Cholesterol, Total 190 <200 mg/dL [facility] HDL Cholesterol 52 > OR = 50 mg/dL [facility] Triglycerides 77 <150 mg/dL [facility] LDL Cholesterol 121(H) mg/dL (calc) [facility] [place] [facility] Comment: Reference range: <100 Desirable range <100 mg/dL for primary prevention; <70 mg/dL for patients with CHD or diabetic patients with > or = 2 CHD risk factors. LDL-C is now calculated using the Zeenat calculation, which is a validated novel method providing better accuracy than the Friedewald equation in the estimation of LDL-C. Ajay SS et al. KEYONA. 2013;310(19): 9956-7086 (http://education.IDEV Technologies/faq/RXZ997) Chol/HDLC Ratio 3.7 <5.0 (calc) [facility] Non-HDL Cholesterol 138(H) <130 mg/dL (calc) [facility] Comment: For patients with diabetes plus 1 major ASCVD risk factor, treating to a non-HDL-C goal of <100 mg/dL (LDL-C of <70 mg/dL) is considered a therapeutic option. Blood Venous blood specimen / Unknown 10/13/2022 11:02 AM EDT 10/13/2022 11:02 AM EDT Result [facility] Meenakshi Dyson ASSOCIATE PROFESSOR OF GEOGRAPHY LAB BLOOD ORDERABLES Final Resu lt [facility] [address], [place] [address] [facility] [place] [facility] [address] [place] [address] * Hm Pap Smear (10/28/2018) Pap Negative for intraephithelial lesion or malignancy Negative for intraephithelial lesion or malignancy, Other HPV Undetected Undetected, Indeterminate, Quantitative, Not Detected Historical Provider HEALTH MAINTENANCE Final Result from Last 3 Months or Most Recently Relevant to Health Maintenance Insurance C3 Care Teams Stage Electrician Helper Relationship Specialty Start Date End Date Porfirio Goodman MD [address] [place] [address] PCP - General Internal Medicine 12/05/19 Jeanine Montague 02/23/25 Amber Mittal Education ParaprofessionalManager Labor Delivery 04/20/24
--- OUTSIDE RECORDS SUMMARY | 2025-03-29 17:04 | XMS_ITS | Encounter Summary ---
Author Organization [employer] Address [address] [facility] [address] [place] [address] Care Team Providers Care Flatbed Owner Operator Name Role Phone Porfirio Goodman MD Primary Care Prov ider Luli Sosa RN Unavailable [phone] Marino Wiseman Unavailable Jeanine Montague Unavailable Reason for Visit * Reason Onset Date Comments Nurse Triage 02/29/2024 Encounter Details Date Type Department Care Team (Late st Contact Info) Description 02/29/2024 Telephone [facility] MEDICINE [address] [place] [address] Porfirio Goodman MD [address] [place], [place] [phone] Nurse Triage Social History Tobacco Use Types [...] answer. Left voice message x2 to call [facility] triage line at [phone] when Pt gets an opportunity. * Telephone Encounter - Mamie Goncalves - 02/29/2024 9:14 AM EDT Symptom: Fall Outcome: Schedule an appointment to be seen within 24 hours Reason: body aches The caller accepted this outcome documented in this encounter Plan of Treatment Not on file documented as of this encounter Visit Diagnoses Not on filedocumented in this encounter Care Teams Flatbed Owner Operator Relationship Specialty Start Date End Date Porfirio Goodman MD [address] [place], [place] [phone] PCP - General Internal Medicine 12/05/19 Luli Sosa RN [address] [place], [place] [phone] Registered Nurse Family Medicine 12/12/24 12/12/24 Marino Wiseman 12/12/24 12/12/24 Jeanine Montague 02/23/25 Amber Mittal Jeeper OperatorOrder Schedule Clerk 04/20/24 documented as of this encounter
--- OUTSIDE RECORDS SUMMARY | 2025-03-29 17:04 | XMS_ITS | Encounter Summary ---
Author Organization [facility] Address [address] [facility] [address] [place] [address] Phone Care Team Providers Care Amusement Centre Manager Name Role Phone Porfirio Goodman MD Primary Care Prov ider Encounter Details Date Type Department Care Team (Late st Contact Info) Description 12/29/2023 Transcribe Orders Virtual Department [address] [place] [address] Corey Carmona PA [address] [place] [address] Other spondylosis with radiculopathy, lumbosacral region (Primary Dx) Social History Tobacco Use Types [...] a working camera? Not on file Comments Unknown Sex and Gender Information Value Date Recorded Sex Assigned at Female 05/13/2021 2:08 PM EDT Legal Sex Female 1:54 PM EDT Gender Identity Female 05/13/2021 2:08 PM EDT Sexual Orientation Straight 05/13/2021 2: 08 PM EDT documented as of this encounter Plan of Treatment Not on file documented as of this encounter Visit Diagnoses Diagnosis Other spondylosis with radiculopathy, lumbosacral region- Primary documented in this encounter Care Teams Amusement Centre Manager Relationship Specialty Start Date End Date Porfirio Goodman MD [address] [place] [address] PCP - General Internal Medicine 09/18/21 documented as of this encounter Additional Source Comments The information contained in this document represents components of the legal health record. It is not the complete legal health record.[facility]
--- OUTSIDE RECORDS SUMMARY | 2025-03-29 17:04 | XMS_ITS | Encounter Summary ---
Author Organization [employer] Address 75 [facility] 7 [place] [address] Care Team Providers Care Vp Lab Name Role Phone Porfirio Goodman MD Primary Care Prov ider Luli Sosa RN Unavailable [phone] Marino Wiseman Unavailable Jeanine Montague Unavailable Reason for Visit * Reason Onset Date Comments Med Refill 12/07/2024 Encounter Details Date Type Department Care Team (Late st Contact Info) Description 12/07/[address] [facility] CHC MED & PEDS [address] [place], [place] [phone] Porfirio Goodman MD 505 [place], [place] [phone] Social History Tobacco Use Types Packs/Day Years [...] on filedocumented in this encounter Care Teams Vp Lab Relationship Specialty Start Date End Date Porfirio Goodman MD 505 [place] [address] PCP - General Internal Medicine 12/05/19 Luli Sosa RN 505 [place] [address] Registered Nurse Family Medicine 12/12/24 12/12/24 Marino Wiseman 12/12/24 12/12/24 Jeanine Montague 02/23/25 Amber Mittal Candy Waffle AssemblerTwo Way Radio Installer 04/20/24 documented as of this encounter
--- OUTSIDE RECORDS SUMMARY | 2025-03-29 17:04 | XMS_ITS | Encounter Summary ---
Author Organization [employer] Address [address] [place] [address] [address] [address] Care Team Providers Care Insulation Nozzleman Name Role Phone Porfirio Goodman MD Primary Care Prov ider Luli Sosa RN Unavailable [phone] Marino Wiseman Unavailable Jeanine Montague Unavailable Encounter Details Date Type Department Care Team (Latest Contact Info) Description 09/09/2021 Abstract [facility] CONVERSIONS Dental, Provider, DDS Social History Tobacco [...] on filedocumented in this encounter Care Teams Insulation Nozzleman Relationship Specialty Start Date End Date Porfirio Goodman MD 505 [place], [place] [phone] PCP - General Internal Medicine 12/05/19 Luli Sosa RN 505 [place], [place] [phone] Registered Nurse Family Medicine 12/12/24 12/12/24 Marino Wiseman 12/12/24 12/12/24 Jeanine Montague 02/23/25 Amber Mittal Plastic WorkerDirector Of Physiotherapy Services 04/20/24 documented as of this encounter
--- OUTSIDE RECORDS SUMMARY | 2025-03-29 17:04 | XMS_ITS | Encounter Summary ---
Author Organization [employer] Address 75 [facility] 7 [place] [address] Care Team Providers Care Injection Molding Process Technician Name Role Phone Porfirio Goodman MD Primary Care Prov ider Jeanine Montague Unavailable Encounter Details Date Type Department Care Team (Late st Contact Info) Description 03/29/2025 Orders Only [facility] External Provider, [facility] Social History Tobacco Use Types Packs/Day Years [...] VIEWS LEFT Routine 03/29/2025 2:17 PM EDT documented in this encounter Results * XR Hand 3+ Views Left (03/29/2025 2:17 PM EDT) Anatomical Region Laterality Modality Upper Extremities, Hand Left Radiogra phic Imaging 03/29/2025 2:17 PM EDT Narrative 03/29/2025 3:20 PM EDT [place] [address] XRay Report Signed Patient: Kyle Pool MR#: [id number] : 1975 Acct:[id number] Age/Sex: 50 / F ADM Date: 03/29/25 Loc: .ED Attending Dr: Ordering Physician: Amber Chakraborty Date of Service: 03/29/25 Procedure(s): XR hand LT min 3V Accession Number(s): [id number] cc: Porfirio Goodman MD; Amber Chakraborty Reason [...] Otilio Campos MD 03/29/2025 03:18 PM EDT RP Dictated By: Otilio Campos MD Signed By: <Electronically signed by Otilio Campos MD in OV> 03/29/25 1518 DD/ 1417 TD/TT: 03/29/25 151 Aluminum Siding Applicator: Procedure Note Donotuseinterpreter, Image - 03/29/[address] [address] XRay Report Signed Patient: Kyle Pool AMR#: [id number] : 1975Acct:[id number] Age/Sex: 50 / FADM Date: 03/29/25 Loc: HO.ED Attending Dr: Ordering Physician: Amber Chakraborty Date of Service: 03/29/25 Procedure(s): XR hand LT min 3V Accession Number(s): [id number] cc: Porfirio Goodman MD; Amber Chakraborty Reason [...] Otilio Campos MD 03/29/2025 03:18 PM EDT RP Dictated By: Otilio Campos MD Signed By: <Electronically signed by Otilio Campos MD in OV> 03/29/25 1518 DD/ 1417 TD/TT: 03/29/25 1514 Aluminum Siding Applicator: [facility] External Provider IMG XR PROCEDURES Final Result documented in this encounter Visit Diagnoses Not on filedocumented in this encounter Care Teams Injection Molding Process Technician Relationship Specialty Start Date End Date Porfirio Goodman MD [address] [place] [address] PCP - General Internal Medicine 12/05/19 Jeanine Montague 02/23/25 Amber Mittal Manager CaseBathhouse Keeper 04/20/24 documented as of this encounter
--- OUTSIDE RECORDS SUMMARY | 2025-03-29 17:04 | XMS_ITS | Encounter Summary ---
Author Organization [employer] Address [address] [address] Care Team Providers Care Bench Hand Name Role Phone Porfirio Goodman MD Primary Care Prov ider Luli Sosa RN Unavailable [phone] Marino Wiseman Unavailable Jeanine Montague Unavailable Reason for Visit * Reason Onset Date Comments Results 09/22/2022 Encounter Details Date Type Department Care Team (Late st Contact Info) Description 09/22/2022 Telephone [facility] MEDICINE [address] [place] [address] Porfirio Goodman MD 505 [place], [place] [phone] Results Social History Tobacco Use Types Packs/Day [...] requesting XR results please contact pt at [phone] documented in this encounter Plan of Treatment Not on file documented as of this encounter Visit Diagnoses Not on filedocumented in this encounter Care Teams Bench Hand Relationship Specialty Start Date End Date Porfirio Goodman MD 505 [place] [address] PCP - General Internal Medicine 12/05/19 Luli Sosa RN 505 [place] [address] Registered Nurse Family Medicine 12/12/24 12/12/24 Marino Wiseman 12/12/24 12/12/24 Jeanine Montague 02/23/25 Amber Mittal Merchant MillerYouth Ministry Director 04/20/24 documented as of this encounter
--- OUTSIDE RECORDS SUMMARY | 2025-03-29 17:04 | XMS_ITS | Encounter Summary ---
Author Organization [facility] Address [address] [place] [address] Phone Care Team Providers Care Assistant Product Manager Name Role Phone Porfirio Goodman MD Primary Care Prov ider Encounter Details Date Type Department Care Team (Late st Contact Info) Description 01/15/2024 Procedure Pass [facility], [address] [address] Social History Tobacco Use Types Packs/Day Years [...] on filedocumented in this encounter Care Teams Assistant Product Manager Relationship Specialty Start Date End Date Porfirio Goodman MD [address] [place] [address] PCP - General Internal Medicine 09/18/21 documented as of this encounter Additional Source Comments The information contained in this document represents components of the legal health record. It is not the complete legal health record.[facility]
--- OUTSIDE RECORDS SUMMARY | 2025-03-29 17:04 | XMS_ITS | Encounter Summary ---
Author Organization [employer] Address 75 [facility] 7 [place] [address] Care Team Providers Care Security Shift Supervisor Name Role Phone Porfirio Goodman MD Primary Care Prov ider Luli Sosa RN Unavailable [phone] Marino Wiseman Unavailable Jeanine Montague Unavailable Encounter Details Date Type Department Care Team (Late st Contact Info) Description 08/18/[address] [facility] CHC MED & PEDS 505 [place], [place] [phone] Porfirio Goodman MD 505 [place], [place] [phone] Social History Tobacco Use Types Packs/Day Years [...] on filedocumented in this encounter Care Teams Security Shift Supervisor Relationship Specialty Start Date End Date Porfirio Goodman MD 505 [place] [address] PCP - General Internal Medicine 12/05/19 Luli Sosa RN 505 [place] [address] Registered Nurse Family Medicine 12/12/24 12/12/24 Marino Wiseman 12/12/24 12/12/24 Jeanine Montague 02/23/25 Amber Mittal Tiltrotor Crew ChiefFun House Attendant 04/20/24 documented as of this encounter
--- OUTSIDE RECORDS SUMMARY | 2025-03-29 17:04 | XMS_ITS | Encounter Summary ---
Author Organization [employer] Address 75 [facility] [place] [address] Care Team Providers Care Nutritionist Name Role Phone Porfirio Goodman MD Primary Care Prov ider Luli Sosa RN Unavailable [phone] Marino Wiseman Unavailable Jeanine Montague Unavailable Reason for Visit * Reason Onset Date Comments Prior Authorization 08/09/2024 Encounter Details Date Type Department Care Team (Late st Contact Info) Description 08/09/2024 Telephone [facility] CHC MED & PEDS 505 [place], [place] [phone] Porfirio Goodman MD 505 [place], [place] [phone] Prior Authorization Social History Tobacco Use Types [...] on filedocumented in this encounter Care Teams Nutritionist Relationship Specialty Start Date End Date Porfirio Goodman MD [address] [place] [address] PCP - General Internal Medicine 12/05/19 Luli Sosa RN [address] [place] [address] Registered Nurse Family Medicine 12/12/24 12/12/24 Marino Wiseman 12/12/24 12/12/24 Jeanine Montague 02/23/25 Amber Mittal Coal ChemistFinancial Aid Director 04/20/24 documented as of this encounter
--- OUTSIDE RECORDS SUMMARY | 2025-03-29 17:04 | XMS_ITS | Encounter Summary ---
Author Organization [employer] Address 75 [facility] [place] [address] Care Team Providers Care Vibration Analyst Name Role Phone Porfirio Goodman MD Primary Care Prov ider Luli Sosa RN Unavailable [phone] Marino Wiseman Unavailable Jeanine Montague Unavailable Reason for Visit * Reason Onset Date Comments Nurse Triage 01/01/2024 Encounter Details Date Type Department Care Team (Late st Contact Info) Description 01/01/2024 Telephone [facility] MEDICINE 230 [place] [address] Porifrio Goodman MD 505 [place], [place] [phone] Nurse Triage Social History Tobacco Use Types Packs/Day Years Used Date Smoking Tobacco: Never Passive Smoke Exposure: Never Smokeless Tobacco: Never Alcohol Use Standard Drinks/Week Comments Never 0 (1 standard drink = 0.6 oz pur e alcohol) Housing Stability Answer Date Recorded What is your housing situation today? I have mike lilliam 05/13/[address] you li [...] on filedocumented in this encounter Care Teams Vibration Analyst Relationship Specialty Start Date End Date Porfirio Goodman MD 505 [place] [address] PCP - General Internal Medicine 12/05/19 Luli Sosa RN 505 [place] [address] Registered Nurse Family Medicine 12/12/24 12/12/24 Marino Wiseman 12/12/24 12/12/24 Jeanine Montague 02/23/25 Amber Mittal Practice ManagersCommunication Signals Intelligence 04/20/24 documented as of this encounter
--- OUTSIDE RECORDS SUMMARY | 2025-03-29 17:05 | XMS_ITS | Clinical Summary ---
Author Organization [facility] Address [address] [place] [address] Care Team Providers Care Internal Medicine Physician Assistant Name Role Phone Porfirio Goodman Primary Care [...] 19+ 3-dose series) 1994 Pneumococcal Vaccine: 50+ Ye ars (1 of 2 - PCV) 1994 Cervical Cancer Screening: P ap Smear 1996 Colorectal Cancer Screening: Colonoscopy 07/06/2022 HIV Screening 07/06/2022 Hepatitis C Screening 07/06/2022 Social Influencers of Health Screening 07/06/2022 COVID-19 Vaccine (1 - 2023-2 5 season) 2024 Depression Screening 07/27/2024 Zoster Vaccines (1 of 2) 2025 Influenza Vaccine (#1) 2025 05/14/2018 DTaP,Tdap,and Td [...] age to complete this topic Care Teams Internal Medicine Physician Assistant Relationship Specialty Start Date End Date Porfirio Goodman [address] [place] [address] PCP - General Internal Medicine 04/02/22
--- OUTSIDE RECORDS SUMMARY | 2025-03-29 17:05 | XMS_ITS | Encounter Summary ---
Author Organization [employer] Address [address] [place] [address] [address] [address] Care Team Providers Care Medical Accountant Name Role Phone Porfirio Goodman MD Primary Care Prov ider Luli Sosa RN Unavailable [phone] Marino Wiseman Unavailable Jeanine Montague Unavailable Reason for Visit * Reason Onset Date Comments Nurse Triage 04/27/2023 Encounter Details Date Type Department Care Team (Late st Contact Info) Description 04/27/2023 Telephone [facility] CHC MED & PEDS 505 [place], [place] [phone] Porfirio Goodman MD 505 [place], [place] [phone] Nurse Triage Social History Tobacco Use Types [...] is associated with that now. ASK apt [facility] 140pm 04/27/23 . Pt agrees with [...] like being stabbed. Please contact pt at [phone] documented in this encounter Plan of Treatment Not on file documented as of this encounter Visit Diagnoses Not on filedocumented in this encounter Care Teams Medical Accountant Relationship Specialty Start Date End Date Porfirio Goodman MD [address] [place] [address] PCP - General Internal Medicine 12/05/19 Luli Sosa RN [address] [place] [address] Registered Nurse Family Medicine 12/12/24 12/12/24 Marino Wiseman 12/12/24 12/12/24 Jeanine Montague 02/23/25 Amber Mittal Desk MonitorRound Corner Cutter Operator 04/20/24 documented as of this encounter
--- OUTSIDE RECORDS SUMMARY | 2025-03-29 17:05 | XMS_ITS | Encounter Summary ---
Author Organization [employer] Address 75 [facility] 7t [place] [address] Care Team Providers Care Boardmarker Name Role Phone Porfirio Goodman MD Primary Care Prov ider Luli Sosa RN Unavailable [phone] Marino Wiseman Unavailable Jeanine Montague Unavailable Encounter Details Date Type Department Care Team (Late st Contact Info) Description 09/16/2024 Telephone [facility] MEDICINE 230 [place] [address] Porfirio Goodman MD 505 [place] [address] Social History Tobacco Use Types Packs/Day Years [...] on filedocumented in this encounter Care Teams Boardmarker Relationship Specialty Start Date End Date Porfirio Goodman MD 505 [place] [address] PCP - General Internal Medicine 12/05/19 Luli Sosa RN 505 [place] [address] Registered Nurse Family Medicine 12/12/24 12/12/24 Marino Wiseman 12/12/24 12/12/24 Jeanine Montague 02/23/25 Amber Mittal Supervisor Policy Change ClerksConvertible Sofa Bedspring Tester 04/20/24 documented as of this encounter
--- OUTSIDE RECORDS SUMMARY | 2025-03-29 17:05 | XMS_ITS | Encounter Summary ---
Author Organization [employer] Address 75 [facility] 7 [place] [address] Care Team Providers Care Online Services Manager Name Role Phone Porfirio Goodman MD Primary Care Prov ider Luli Sosa RN Unavailable [phone] Marino Wiseman Unavailable Jeanine Montague Unavailable Encounter Details Date Type Department Care Team (Late st Contact Info) Description 06/05/2023 Orders Only [facility] CHC MED & PEDS 505 [place], [place] [phone] Ambika Webster MD 505 [place] [address] Essential hypertension (Primary Dx) Social History Tobacco [...] hypertension documented in this encounter Care Teams Online Services Manager Relationship Specialty Start Date End Date BaerPorfirio Escobar MD 505 [place] [address] PCP - General Internal Medicine 12/05/19 Luli Sosa RN 505 [place] [address] Registered Nurse Family Medicine 12/12/24 12/12/24 Marino Wiseman 12/12/24 12/12/24 Jeanine Montague 02/23/25 Amber Mittal Canal Boat CaptainCoal Gasification Technician 04/20/24 documented as of this encounter
--- OUTSIDE RECORDS SUMMARY | 2025-03-29 17:05 | XMS_ITS | Encounter Summary ---
Author Organization [employer] Address 75 [facility] 7[facility] [place] [address] Care Team Providers Care Physical Sciences Instructor Name Role Phone Porfirio Goodman MD Primary Care Prov ider Luli Sosa RN Unavailable [phone] Marino Wiseman Unavailable Jeanine Montague Unavailable Reason for Visit * Reason Onset Date Comments Results 06/27/2024 Encounter Details Date Type Department Care Team (Late st Contact Info) Description 06/27/2024 Telephone [facility] MEDICINE 230 [place] [address] Porfirio Goodman MD 505 [place], [place] [phone] Results Social History Tobacco Use Types Packs/Day [...] results: Labs Date when done: 06/22/24 Facility: [facility] Labs documented in this encounter Plan of Treatment Not on file documented as of this encounter Visit Diagnoses Not on filedocumented in this encounter Care Teams Physical Sciences Instructor Relationship Specialty Start Date End Date Porfirio Goodman MD 505 [place] [address] PCP - General Internal Medicine 12/05/19 Luli Sosa RN 505 [place] [address] Registered Nurse Family Medicine 12/12/24 12/12/24 Marino Wiseman 12/12/24 12/12/24 Jeanine Montague 02/23/25 Amber Mittal Sack SorterCompressed Yeast Supervisor 04/20/24 documented as of this encounter
--- OUTSIDE RECORDS SUMMARY | 2025-03-29 17:05 | XMS_ITS | Encounter Summary ---
Author Organization [employer] Address 75 [facility] 7[facility] [place] [address] Care Team Providers Care Farm Truck Driver Name Role Phone Porfirio Goodman MD Primary Care Prov ider Luli Sosa RN Unavailable [phone] Marino Wiseman Unavailable Jeanine Montague Unavailable Reason for Visit * Reason Comments Med Refill Encounter Details Date Type Department Care Team ([facility] Contact Info) Description 04/27/2024 Refill [facility] CHC MED & PEDS 505 [place], [place] [phone] Porfirio Goodman MD 505 [place], [place] [phone] Social History Tobacco Use Types Packs/Day Years [...] on filedocumented in this encounter Care Teams Farm Truck Driver Relationship Specialty Start Date End Date Porfirio Goodman MD 505 [place] [address] PCP - General Internal Medicine 12/05/19 Luli Sosa RN 505 [place] [address] Registered Nurse Family Medicine 12/12/24 12/12/24 Marino Wiseman 12/12/24 12/12/24 Jeanine Montague 02/23/25 Amber Mittal Valve And Regulator RepairerGame Technician 04/20/24 documented as of this encounter
--- OUTSIDE RECORDS SUMMARY | 2025-03-29 17:05 | XMS_ITS | Encounter Summary ---
Author Organization [employer] Address 75 [facility] [place] [address] Care Team Providers Care Hand Frame Surgical Elastic Knitter Name Role Phone Porfirio Goodman MD Primary Care Prov ider Luli Sosa RN Unavailable [phone] Marino Wiseman Unavailable Jeanine Montague Unavailable Reason for Visit * Reason Onset Date Comments Med Refill 06/27/2024 Encounter Details Date Type Department Care Team (Late st Contact Info) Description 06/27/2024 Refill [facility] CHC MED & PEDS 505 [place], [place] [phone] Porfirio Goodman MD 505 [place], [place] [phone] Social History Tobacco Use Types Packs/Day Years [...] on filedocumented in this encounter Care Teams Hand Frame Surgical Elastic Knitter Relationship Specialty Start Date End Date Porfirio Goodman MD 505 [place] [address] PCP - General Internal Medicine 12/05/19 Luli Sosa RN 505 [place] [address] Registered Nurse Family Medicine 12/12/24 12/12/24 Marino Wiseman 12/12/24 12/12/24 Jeanine Montague 02/23/25 Amber Mittal Edge DrummerSupervisor Filter Assembly 04/20/24 documented as of this encounter
--- OUTSIDE RECORDS SUMMARY | 2025-03-29 17:05 | XMS_ITS | Encounter Summary ---
Author Organization [employer] Address 75 [facility] [place] [address] Care Team Providers Care Field Collector Name Role Phone Porfirio Goodman MD Primary Care Prov ider Luli Sosa RN Unavailable [phone] Marino Wiseman Unavailable Jeanine Montague Unavailable Reason for Visit * Reason Comments Med Refill Encounter Details Date Type Department Care Team ([facility] Contact Info) Description 04/27/2024 Refill [facility] CHC MED & PEDS 505 [place], [place] [phone] Porfirio Goodman MD 505 [place], [place] [phone] Social History Tobacco Use Types Packs/Day Years [...] on filedocumented in this encounter Care Teams Field Collector Relationship Specialty Start Date End Date Porfirio Goodman MD 505 [place] [address] PCP - General Internal Medicine 12/05/19 Luli Sosa RN 505 [place] [address] Registered Nurse Family Medicine 12/12/24 12/12/24 Marino Wiseman 12/12/24 12/12/24 Jeanine Montague 02/23/25 Amber Mittal Adult Care ProviderConsumer Loan Manager 04/20/24 documented as of this encounter
--- OUTSIDE RECORDS SUMMARY | 2025-03-29 17:05 | XMS_ITS | Encounter Summary ---
Author Organization [employer] Address 75 [facility] 7 [place] [address] Care Team Providers Care Tour Agent Name Role Phone Porfirio Goodman MD Primary Care Prov ider Jeanine Montague Unavailable Reason for Visit * Reason Comments Med Refill Encounter Details Date Type Department Care Team ([facility] st Contact Info) Description 02/24/2025 Refill [facility] CHC MED & PEDS 505 [place], [place] [phone] Porfirio Goodman MD 505 [place] [address] Social History Tobacco Use Types Packs/Day Years [...] on filedocumented in this encounter Care Teams Tour Agent Relationship Specialty Start Date End Date BaerPorfirio Escobar MD [address] [place] [address] PCP - General Internal Medicine 12/05/19 Jeanine Montague 02/23/25 Amber Mittal Hop SeparatorNight Worker 04/20/24 documented as of this encounter
--- OUTSIDE RECORDS SUMMARY | 2025-03-29 17:05 | XMS_ITS | Encounter Summary ---
Author Organization [employer] Address 75 [facility] [place] [address] Care Team Providers Care Supervising Bailiff Name Role Phone Porfirio Goodman MD Primary Care Prov ider Luli Sosa RN Unavailable [phone] Marino Wiseman Unavailable Jeanine Montague Unavailable Reason for Visit * Reason Onset Date Comments Call Back Request 07/24/2023 Encounter Details Date Type Department Care Team ([facility] Contact Info) Description 07/24/2023 Telephone [facility] CHC MED & PEDS 505 [place], [place] [phone] Porfirio Goodman MD 505 [place], [place] [phone] Call Back Request Social History Tobacco Use [...] on filedocumented in this encounter Care Teams Supervising Bailiff Relationship Specialty Start Date End Date Porfirio Goodman MD 505 [place] [address] PCP - General Internal Medicine 12/05/19 Luli Sosa RN 505 [place] [address] Registered Nurse Family Medicine 12/12/24 12/12/24 Marino Wiseman 12/12/24 12/12/24 Jeanine Montague 02/23/25 Amber Mittal Banking ConsultantSenior Strategy Manager 04/20/24 documented as of this encounter
--- OUTSIDE RECORDS SUMMARY | 2025-03-29 17:05 | XMS_ITS | Encounter Summary ---
Author Organization [employer] Address 75 [facility] 7 [place] [address] Care Team Providers Care Hotel Custodian Name Role Phone Porfirio Goodman MD Primary Care Prov ider Luli Sosa RN Unavailable [phone] Marino Wiseman Unavailable Jeanine Montague Unavailable Encounter Details Date Type Department Care Team (Late st Contact Info) Description 04/28/2024 Orders Only [facility] CHC MED & PEDS 505 [place], [place] [phone] Ambika Webster MD 505 [place], [place] [phone] Class 3 severe obesity due to excess [...] Primary documented in this encounter Care Teams Hotel Custodian Relationship Specialty Start Date End Date Porfirio Goodman MD 505 [place] [address] PCP - General Internal Medicine 12/05/19 Luli Sosa RN 505 [place] [address] Registered Nurse Family Medicine 12/12/24 12/12/24 Marino Wiseman 12/12/24 12/12/24 Jeanine Montague 02/23/25 Amber Mittal Veneer PullerAirline Customer Service Agent 04/20/24 documented as of this encounter
--- OUTSIDE RECORDS SUMMARY | 2025-03-29 17:05 | XMS_ITS | Encounter Summary ---
Author Organization [employer] Address [address] [facility] [place] [address] Care Team Providers Care Airborne Missions Systems Name Role Phone Porfirio Goodman MD Primary Care Prov ider Luli Sosa RN Unavailable [phone] Marino Wiseman Unavailable Jeanine Montague Unavailable Reason for Visit * Reason Onset Date Comments Appointment Request 07/15/2023 Encounter Details Date Type Department Care Team (Late st Contact Info) Description 07/15/2023 Telephone [facility] MEDICINE [address] [place] [address] Porfirio Goodman MD [address] [place], [place] [phone] Appointment Request Social History Tobacco Use Types [...] on filedocumented in this encounter Care Teams Airborne Missions Systems Relationship Specialty Start Date End Date Porfirio Goodman MD [address] [place] [address] PCP - General Internal Medicine 12/05/19 Luli Sosa RN [address] [place] [address] Registered Nurse Family Medicine 12/12/24 12/12/24 Marino Wiseman 12/12/24 12/12/24 Jeanine Montague 02/23/25 Amber Mittal Grain InspectorPole Lift Operator 04/20/24 documented as of this encounter
--- OUTSIDE RECORDS SUMMARY | 2025-03-29 17:05 | XMS_ITS | Encounter Summary ---
Author Organization [facility] Address [address] [place] [address] Phone Care Team Providers Care Certified Personal Finance Counselor Name Role Phone Pcp, Unknown Primary Care Provider Unavailabl e Porfirio Goodman MD Primary Care Prov ider Encounter Details Date Type Department Care Team (Late st Contact Info) Description 05/16/2021 Procedure Pass [facility] Radiology [address] [place] [address] Social History Tobacco Use Types Packs/Day Years [...] on filedocumented in this encounter Care Teams Certified Personal Finance Counselor Relationship Specialty Start Date End Date Pcp, Unknown PCP - General 05/13/21 09/17/21 Porfirio Goodman MD [address] [place] [address] PCP - General Internal Medicine 09/18/21 documented as of this encounter Additional Source Comments The information contained in this document represents components of the legal health record. It is not the complete legal health record.[facility]
--- OUTSIDE RECORDS SUMMARY | 2025-03-29 17:05 | XMS_ITS | Encounter Summary ---
Author Organization [employer] Address [address] [facility] [place] [address] Care Team Providers Care Coordinator Of Library Services Name Role Phone Porfirio Goodman MD Primary Care Prov ider Luli Sosa RN Unavailable [phone] Marino Wiseman Unavailable Jeanine Montague Unavailable Reason for Visit * Reason Comments Med Refill Encounter Details Date Type Department Care Team ([facility] Contact Info) Description 04/26/2024 Refill [facility] CHC MED & PEDS [address] [place], [place] [phone] Porfirio Goodman MD [address] [place], [place] [phone] Social History Tobacco Use Types Packs/Day Years [...] on filedocumented in this encounter Care Teams Coordinator Of Library Services Relationship Specialty Start Date End Date Porfirio Goodman MD [address] [place] [address] PCP - General Internal Medicine 12/05/19 Luli Sosa RN [address] [place] [address] Registered Nurse Family Medicine 12/12/24 12/12/24 Marino Wiseman 12/12/24 12/12/24 Jeanine Montague 02/23/25 Amber Mittal Fresco ArtistCommunity Mental Health Worker 04/20/24 documented as of this encounter
--- OUTSIDE RECORDS SUMMARY | 2025-03-29 17:05 | XMS_ITS | Encounter Summary ---
Author Organization [employer] Address [address] [facility] 7t [place] [address] Care Team Providers Care Medical Artist Name Role Phone Porfirio Goodman MD Primary Care Prov ider Luli Sosa RN Unavailable [phone] Marino Wiseman Unavailable Jeanine Montague Unavailable Reason for Visit * Reason Onset Date Comments Med Refill 01/11/2024 Encounter Details Date Type Department Care Team (Late st Contact Info) Description 01/11/2024 Refill [facility] [address] [place] [address] [phone] Doug Vargas MD [address] [place], [place] [phone] Abdominal wall pain Social History Tobacco Use Types Packs/Day Years Used Date Smoking Tobacco: Never Passive Smoke Exposure: Never Smokeless Tobacco: Never Alcohol Use Standard Drinks/Week Comments Never 0 (1 standard drink = 0.6 oz pur e alcohol) Housing Stability Answer Date Recorded What is your housing situation today? I have mike sing 05/13/[address] you li [...] site documented in this encounter Care Teams Medical Artist Relationship Specialty Start Date End Date Porfirio Goodman MD [address] [place] [address] PCP - General Internal Medicine 12/05/19 Luli Sosa RN [address] [place] [address] Registered Nurse Family Medicine 12/12/24 12/12/24 Marino Wiseman 12/12/24 12/12/24 Jeanine Montague 02/23/25 Amber Mittal Fruit DryerTube Skiver 04/20/24 documented as of this encounter
--- OUTSIDE RECORDS SUMMARY | 2025-03-29 17:05 | XMS_ITS | Encounter Summary ---
Author [employer] Preferred Language en Marital Status Restoration Affiliation Unknown Race White Ethnic Group Unknown Author Organization [employer] Address 75 [facility] 7 [place] [address] Care Team Providers Care Baker Biscuit Name Role Phone Porfirio Goodman MD Primary Care Prov ider Luli Sosa RN Unavailable [phone] Marino Wiseman Unavailable Jeanine Montague Unavailable Encounter Details Date Type Department Care Team (Late st Contact Info) Description 10/29/2023 Orders Only [facility] CHC MED & PEDS [address] [place], [place] [phone] Ambika Webster MD [address] [place], [place] [phone] Low vitamin D level (Primary Dx); Other [...] anemia documented in this encounter Care Teams Baker Biscuit Relationship Specialty Start Date End Date Porfirio Goodman MD [address] [place] [address] PCP - General Internal Medicine 12/05/19 Luli Sosa RN [address] [place] [address] Registered Nurse Family Medicine 12/12/24 12/12/24 Marino Wiseman 12/12/24 12/12/24 Jeanine Montague 02/23/25 Amber Mittal Cell InspectorUniversal Grinder Tool 04/20/24 documented as of this encounter
--- OUTSIDE RECORDS SUMMARY | 2025-03-29 17:05 | XMS_ITS | Encounter Summary ---
Author Organization [employer] Address 75 [facility] [address] Care Team Providers Care Paperhanger Assistant Name Role Phone Porfirio Goodman MD Primary Care Prov ider Luli Sosa RN Unavailable [phone] Marino Wiseman Unavailable Jeanine Montague Unavailable Reason for Visit * Reason Onset Date Comments Error (VOID this visit) 04/27/2024 Encounter Details Date Type Department Care Team ([facility] st Contact Info) Description 04/27/2024 Telephone [facility] CHC MED & PEDS [address] [place], [place] [phone] Porfirio Goodman MD [address] [place], [place] [phone] Error (VOID this visit) Social History Tobacco Use Types Packs/Day Years [...] Burr - 05/03/2024 10:48 AM EDT Good shira Baer, patient needs an order for a home sleep study. * Telephone Encounter - Debbi Paula RN - 04/28/2024 9:15 AM EDT TC to [facility] pharmacy, pharmacist states somehow wegovy appeared in their system as no longer having refills. Med queued to covering provider. * Telephone Encounter - Halima Rogers - 04/27/2024 4:11 PM EDT Tc from pt requesting to speak to nurse regarding medication Semaglutide-Weight Management (Wegovy)0.5 MG/0.5ML solution auto-injector. Refill was denied. Contact pt at [phone] documented in this encounter Plan of Treatment Not on file documented as of this encounter Visit Diagnoses Not on filedocumented in this encounter Care Teams Paperhanger Assistant Relationship Specialty Start Date End Date Porfirio Goodman MD [address] [place] [address] PCP - General Internal Medicine 12/05/19 Luli Sosa RN [address] [place] [address] Registered Nurse Family Medicine 12/12/24 12/12/24 Marino Wiseman 12/12/24 12/12/24 Jeanine Montague 02/23/25 Amber Mittal Nuclear Medicine OfficerElastic Attacher Chainstitch 04/20/24 documented as of this encounter
--- OUTSIDE RECORDS SUMMARY | 2025-03-29 17:05 | XMS_ITS | Encounter Summary ---
Author Organization [employer] Address [address] [place] [address] Care Team Providers Care Senior Javascript Engineer Name Role Phone Porfirio Goodman MD Primary Care Prov ider Luli Sosa RN Unavailable [phone] Marino Wiseman Unavailable Jeanine Montague Unavailable Reason for Visit * Reason Comments Med Refill Encounter Details Date Type Department Care Team ([facility] st Contact Info) Description 03/17/2023 Refill [facility] CHC MED & PEDS [address] [place], [place] [phone] Porfirio Goodman MD [address] [place], [place] [phone] Post-nasal drip Social History Tobacco Use Types [...] drip documented in this encounter Care Teams Senior Javascript Engineer Relationship Specialty Start Date End Date Porfirio Goodman MD [address] [place] [address] PCP - General Internal Medicine 12/05/19 Luli Sosa RN [address] [place] [address] Registered Nurse Family Medicine 12/12/24 12/12/24 Marino Wiseman 12/12/24 12/12/24 Jeanine Montague 02/23/25 Amber Mittal Cement Mason HelperFreight Broker 04/20/24 documented as of this encounter
[2025-03-29 17:10] VITALS: BP 122/57; PULSE 86; RESP 16; TEMP 36.9; O2SAT 99
== END 2025-03-29 17:11 | disposition home or self-care (01) ==
PROVIDERS: Emergency Provider Emergency Medicine Emergency Medical Services; PCP Internal Medicine
DX: S61.412A Laceration without foreign body of left hand, initial encounter (principal); M79.642 Pain in left hand; W26.9XXA Contact with unspecified sharp object(s), initial encounter; Y93.9 Activity, unspecified; Y92.9 Unspecified place or not applicable; Y99.8 Other external cause status; Z23 Encounter for immunization
CPT/HCPCS: 12001; 73130; 90471; 90715; 99283; 99284; J2003

== ENCOUNTER → 2025-03-29 14:58 | Outpatient (BNV) | payer MEDICAID, SELFPAY | PROVIDERS: Emergency Provider Emergency Medicine Emergency Medical Services; PCP Internal Medicine; Visit Provider Radiology Diagnostic Radiology | DX: S61.412A Laceration without foreign body of left hand, initial encounter (principal) | CPT/HCPCS: 73130 ==

== ENCOUNTER 2025-04-03 08:35 | Outpatient (AMB) | payer MEDICAID, SELFPAY ==
--- OUTSIDE RECORDS SUMMARY | 2025-03-30 11:00 | XMS_ITS | Encounter Summary ---
Author Organization [employer] Address [address] [facility] [address] 7t [place] [address] Care Team Providers Care Grain Commodity Manager Name Role Phone Porfirio Goodman MD Primary Care Prov ider Jeanine Montague Unavailable Encounter Details Date Type Department Care Team (Late st Contact Info) Description 03/30/2025 11:00 AM EDT Office Visit [facility] [address] [place], [place] [phone] Leidy Morelos DO [address] [place], [place] [phone] Localized swelling on left hand (Primary Dx) Social History Tobacco Use Types [...] Sign Reading Time Taken Comments Blood Pressure 149/88 03/30/2025 11:15 AM EDT Pulse 82 03/30/2025 11:15 AM EDT Temperature 36.6 C (97.9 F) 03/30/2025 11:15 AM EDT Respiratory Rate 19 03/30/2025 11:15 AM EDT Oxygen Saturation 97% 03/30/2025 11:15 AM EDT Inhaled Oxygen Concentration - - Weight 95.7 kg (211 lb) 03/30/2025 11:15 AM EDT Height 160 cm (5' 3 ) 03/30/2025 11:15 AM EDT Body Mass Index 37.38 03/30/2025 11:15 AM EDT documented in this encounter Progress Notes * Leidy Morelos, - 03/30/2025 11:00 AM EDT SUBJECTIVE Kyle Pool is a 50 y.o. female who presents for Sick Visit. She presents to [place] today c/o hand swelling. She was seen in [facility] yesterday with a laceration between the first and second digits of her L-hand. She had a 1 cm linear lac of the web space on exam. She had hand XR which showed no acute findings. She was given Tdap. Her wound was cleaned extensively and closed with 3 interrupted simple sutures. She was placed on prophylactic keflex x 1 week, advised use tylenol/motrin prn pain, and was discharged home. She says her hand is more swollen today than yesterday and was concerned and wanted to get it checked. She says she has not taken anything for the pain yet as she was not rx'd anything. She denies any redness. She denies any swelling or discharge at the site of the sutures. She says she has just started her abx last night. History provided by: Patient cartography supervisor used: No Review of Systems Constitutional: Negative for activity change, appetite change, chills, fever and unexpected weight change. Respiratory: Negative for cough and shortness of breath. Cardiovascular: Negative for chest pain, palpitations and leg swelling. Gastrointestinal: Negative for abdominal pain, diarrhea, nausea and vomiting. Musculoskeletal: Positive for joint swelling. Skin: Positive for wound. Neurological: Negative for weakness and headaches. Patient Active Problem List Diagnosis Lumbar back pain Sore throat Post-nasal drip Acute left-sided thoracic back pain Essential hypertension Thyroid condition Routine screening for STI (sexually transmitted infection) PCOS (polycystic ovarian syndrome) Bipolar disorder in remission ([facility]) Disorder of sacrum Fibromyositis Gestational diabetes mellitus [...] index (BMI) of38.0 to 38.9 in adult ([facility]) Allergies Allergen Reactions Amoxicillin Anaphylaxis Azithromycin Anaphylaxis and Other Other reaction(s): unspecified azithromycin Hydrocodone Anaphylaxis Other reaction(s): Difficulty breathing, unspecified Trouble breathing Hydrocodone-Acetaminophen Shortness of breath Levofloxacin Anaphylaxis Other reaction(s): unspecified Penicillins Itching and Shortness of breath Other reaction(s): unspecified Sulfamethoxazole Anaphylaxis Other reaction(s): unspecified Sulfanilamide Anaphylaxis Sulfamethoxazole-Trimethoprim Other Other reaction(s): Swelling of throat, Throat Tightness Bactrim Amoxicillin-Pot Clavulanate Other reaction(s): Difficulty breathing Capsaicin Itching Clavulanic Acid Other reaction(s): unspecified unknown Diphenhydramine Hydromorphone Other hydromorphone Metoclopramide Nabumetone Ondansetron Penicillin G Penicillin V Other penicillin V potassium Rizatriptan Sulfa Antibiotics Trimethoprim Other reaction(s): unspecified OBJECTIVE Visit Vitals BP (!) 149/88 (BP Location: Left arm, Patient Position: Sitting, BP Cuff Size: Adult) Pulse 82 Temp 97.9 ??F (36.6 ??C) (Oral) Resp 19 Ht 5' 3 (1.6 m) Wt 211 lb (95.7 kg) LMP 03/03/2025 (Approximate) SpO2 97% BMI 37.38 kg/m?? OB Status Having periods Smoking Status Never BSA 2.06 m?? Physical Exam Constitutional: General: She is not in acute distress. Appearance: Normal appearance. Cardiovascular: Rate and Rhythm: Normal rate and regular rhythm. Heart sounds: Normal heart sounds. No murmur heard. Pulmonary: Effort: Pulmonary effort is normal. Breath sounds: Normal breath sounds. No wheezing or rhonchi. Skin: Findings: Wound present. Comments: Bandage C/D/I Mild swelling/puffiness dorsum L hand with no erythema/warmth or TTP No erythema or discharge at suture site Neurological: General: No focal deficit present. Mental Status: She is alert and oriented to person, place, and time. Cranial Nerves: No cranial nerve deficit. Motor: No weakness. Gait: Gait normal. Psychiatric: Mood and Affect: Mood normal. Assessment/Plan Diagnoses and all orders for this visit: Localized swelling on left hand Mild swelling dorsum L-hand, no sign of infection -provided reassurance -advised keep wound clean and dry -complete keflex course as rx'd -start bactroban TID -encouraged tylenol/motrin prn -encouraged ice therapy -will have wound re-wrapped by [place] RN -advised rtc if increased swelling, redness, pain, or fevers, she agrees with plans --Follow-up with PCP as scheduled or sooner prn-- Current Outpatient Medications: acetaminophen (Tylenol 8 Hour) 650 MG ER tablet, Take 1 tablet (650 mg) by mouth every 8 (eight) hours if needed for mild pain or headaches. Do not crush, chew, or split., Disp: 40 tablet, Rfl: 1 amphetamine-dextroamphetamine (Adderall) 10 MG tablet, Take 1 tablet (10 mg) by mouth 2 times daily., Disp: 60 tablet, Rfl: 0 B Complex Vitamins (vitamin B complex) tablet, Take 1 tablet by mouth in the morning., Disp: , Rfl: Blood Pressure kit, 1 kit Once per day., Disp: 1 kit, Rfl: 0 capsaicin (Zostrix) 0.025 % cream, [...] a day, Disp: 100 g, Rfl: 0 docusate sodium (Colace) 100 MG capsule, TAKE ONE CAPSULE BY MOUTH TWICE DAILY NEEDED FOR CONSTIPATION, Disp: 180 capsule, Rfl: 0 famotidine (Pepcid) 20 MG tablet, [...] IN THE MORNING, Disp:90 tablet, Rfl: 3 ibuprofen 600 MG tablet, Take 1 tablet (600 mg) by mouth every 6 (six) hours if needed for mild pain or fever., Disp: 40 tablet, Rfl: 1 linaCLOtide (Linzess) 145 MCG capsule, Take 1 capsule (145 mcg) by mouth before breakfast. Do not crush or chew., Disp: 30 capsule, Rfl: 11 LORazepam (Ativan) 0.5 MG tablet, Take 0.25 mg by mouth., Disp: , Rfl: meclizine (Antivert) 25 MG tablet, Take 1 tablet (25 mg) by mouth if needed in the morning, at noon, in the evening, and at bedtime for dizziness., Disp: 60 tablet, Rfl: 1 methocarbamol (Robaxin) 750 MG tablet, TAKE 1 TABLET BY MOUTH FOUR TIMES DAILY NEEDED, Disp: 60 tablet, Rfl: 3 mupirocin (Bactroban) 2 % ointment, Apply topically 3 times daily for 7 days., Disp: 22 g, Rfl: 0 omeprazole (PriLOSEC) [address] capsule, TAKE [...] 30 capsule, Rfl: 11 Tirzepatide-Weight Management (Zepbound) 10 MG/0.5ML solution auto-injector, Inject 0.5 mL (10 mg) under the skin 1 (one) time per week., Disp: 2 mL, Rfl: 3 triamcinolone (Kenalog) 0.1 % [...] by provider and provider's statements to me. 03/30/25 4:39 PM Physicians Attestation: I, Leidy Morelos DO, have reviewed the information by the scribe, Perry Stone, for accuracy and agree with its content. * Polly Odonnell RN - 03/30/2025 11:00 AM EDT Per provider request, RN applied bacitracin, non-stick pad, and gauze wrap. Pt tolerated well and denies questions at this time. documented in this encounter Plan of Treatment Not on file documented as of this encounter Visit Diagnoses Diagnosis Localized swelling on left hand- Primary documented in this encounter Care Teams Grain Commodity Manager Relationship Specialty Start Date End Date Porfirio Goodman MD [address] [place] [address] PCP - General Internal Medicine 12/05/19 Jeanine Montague 02/23/25 Amber Mittal Talent Development AnalystPhotographic Double 04/20/24 documented as of this encounter
[2025-04-03 09:02] VITALS: BMI 37.8
--- NOTE | 2025-04-03 09:02 | HO.SPINEOV ---
Vital Signs 04/03/25 09:02 Height 5 ft 2.5 in Weight 210 lb BMI 37.8 Intake Visit Reasons: back & left sided pain Intake Note: Ms. Pool is here today c/o left sided back and hip pain. Geothermal Plant Manager Required: No Allergies amoxicillin Allergy (Severe, Verified 04/03/25 09:03) DIFFICULTY BREATHING clavulanic acid Allergy (Severe, Verified 04/03/25 09:03) DIFFICULTY BREATHNG nabumetone Allergy (Severe, Verified 04/03/25 09:03) Depression Penicillins Allergy (Severe, Verified 04/03/25 09:03) Shortness of Breath, itching sulfamethoxazole Allergy (Severe, Verified 04/03/25 09:03) DIFFICULTY BREATHING, anaphylaxis trimethoprim Allergy (Severe, Verified 04/03/25 09:03) DIFFICULTY BREATHING, anaphylaxis azithromycin Allergy (Intermediate, Verified 04/03/25 09:03) DIFFICULTY BREATHING hydrocodone Allergy (Intermediate, Verified 04/03/25 09:03) DIFFICULTY BREATHING levofloxacin Allergy (Intermediate, Verified 04/03/25 09:03) AGITATION-CAN TAKE IV, BUT NOT PO ondansetron (From Zofran) Allergy (Intermediate, Verified 04/03/25 09:03) r/t prolonged QT rizatriptan (RIZATRIPTAN) Allergy (Intermediate, Verified 04/03/25 09:03) HIVES diphenhydramine (From BENADRYL) Adverse Reaction (Unknown, Verified 04/03/25 09:03) told to avoid From REGLAN Allergy (Severe, Uncoded 02/11/24 10:38) DYSPHORIA Physical Exam Vital Signs: BMI result Body Mass Index 37.8 Assessment & Plan Assessment & Plan (1) Back pain: Code(s): M54.9 - Dorsalgia, unspecified Category: Medical Plan Mrs Pool is here in follow-up. She has been having periodic visits at the clinic for back pain. We have done 2 SI joint fusions on her. Her instrumentation has looked okay on these x-rays. Her lumbar MRI shows some mild degeneration of her discs. She has a slight spondylolisthesis at L4-5. She reports now that the back pain has transitioned into starting to shoot down her right leg into her buttock in her lateral thigh. She is having a hard time getting out of bed in the morning. Standing for any length of time, sitting for any length of time is difficult. On exam, she has full strength with the exception of some limitations with hip flexion causing pain in the back. Negative straight leg raise. Reflexes absent in bilateral lower extremities. She has been taking Tylenol, ibuprofen and methocarbamol. She has been dealing with this for now 8 months or more. I am going to order an MRI and see if there something more going on. I did warn her that her insurance company may denied because she has not done physical therapy, so if that happens she will have to complete a course of that 1st. Total amount of time spent in this visit was 20 minutes in discussion of symptoms, ordering imaging and subsequent plan of care Corey Izaguirre MD,PhD [facility] Orders: Orders MR lumbar spine wo con Today M54.9 - Dorsalgia, unspecified Coding Level of Care Code Est Pt Level 3 (62795) Diagnoses Back pain M54.9
--- OUTSIDE RECORDS SUMMARY | 2025-04-03 09:35 | XMS_ITS | Encounter Summary ---
Author Organization [employer] Address 75 [facility] 7t [place] [address] Care Team Providers Care Outreach Worker Name Role Phone Porfirio Goodman MD Primary Care Prov ider Jeanine Montague Unavailable Encounter Details Date Type Department Care Team (Latest Contact Info) Description 03/30/2025 Travel Social History Tobacco Use Types Packs/Day Years [...] on filedocumented in this encounter Care Teams Outreach Worker Relationship Specialty Start Date End Date BaerPorfirio Escobar MD [address] [place] [address] PCP - General Internal Medicine 12/05/19 Jeanine Montague 02/23/25 Amber Mittal Asset Protection AgentLight Adjuster 04/20/24 documented as of this encounter
--- OUTSIDE RECORDS SUMMARY | 2025-04-03 09:35 | XMS_ITS | Clinical Summary ---
Author Organization [facility] Address [address] [place] [address] Phone Care Team Providers Care Adjunct Art History Instructor Name Role Phone Porfirio Goodman MD [...] Active ferrous sulfate 325 mg (65 mg curyung iron) tablet Take 1 tablet by mouth [...] HEPATITIS C SCREENING 1993 HIV ONE-TIME SCREENING (18-65 YEARS) 1993 PAP SMEAR 1996 SCREENING FOR DIABETES 2010 MAMMOGRAM 2015 COLOGUARD 2020 COLONOSCOPY 2020 COLORECTAL CANCER SCREENING 2020 FIT TEST 2020 FOBT 2020 SIGMOIDOSCOPY 2020 VIRTUAL COLONOSCOPY 2020 INFLUENZA VACCINE (#1) 2025 8, 04/15/2013, 04/05/2012, Additional history exists PNEUMOCOCCAL VACCINES (50+ years) (2 of 2 - PCV) 2025 08/01/2009 ZOSTER VACCINES (1 of 2) 2025 COVID-19 VACCINE (1 - season) 2025 LIPID PANEL 10/14/2027 10/13/2022 Adult Td,Tdap Booster 04/26/2028 04/26/2018 , 01/14/2018, 10/22/2010 SMOKING STATUS SCREENING (Once After 26 Yrs) Completed 01/13/2022 HEPATITIS A [...] ACO C3 ACO C3 ACO C3 ACO [facility] C3 ACO Care Teams Adjunct Art History Instructor Relationship Specialty Start Date End Date Porfirio Goodman MD [address] [place] [phone] PCP - General Internal Medicine 09/18/21 Additional Source Comments The information contained in this document represents components of the legal health record. It is not the complete legal health record.[facility]
--- OUTSIDE RECORDS SUMMARY | 2025-04-03 09:35 | XMS_ITS | Encounter Summary ---
Author Organization [facility] Address [address] [place] [address] Phone Care Team Providers Care Contact Finger Assembler Name Role Phone Porfirio Goodman MD Primary Care Prov ider Encounter Details Date Type Department Care Team (Late st Contact Info) Description 01/15/2024 Procedure Pass [facility], [address] [address] Social History Tobacco Use Types Packs/Day Years [...] on filedocumented in this encounter Care Teams Contact Finger Assembler Relationship Specialty Start Date End Date Porfirio Goodman MD [address] [place] [address] PCP - General Internal Medicine 09/18/21 documented as of this encounter Additional Source Comments The information contained in this document represents components of the legal health record. It is not the complete legal health record.[facility]
--- OUTSIDE RECORDS SUMMARY | 2025-04-03 09:35 | XMS_ITS | Encounter Summary ---
Author Organization [employer] Address [address] [place] [address] [place] [address] Care Team Providers Care Voice Network Administrator Name Role Phone Porfirio Goodman MD Primary Care Prov ider Luli Sosa RN Unavailable [phone] Marino Wiseman Unavailable Jeanine Montague Unavailable Reason for Visit * Reason Comments Med Refill Encounter Details Date Type Department Care Team ([facility] Contact Info) Description 12/17/2022 Refill [facility] CHC MED & PEDS 505 [place], [place] [phone] Porfirio Goodman MD 505 [place], [place] [phone] Post-nasal drip Social History Tobacco Use Types [...] drip documented in this encounter Care Teams Voice Network Administrator Relationship Specialty Start Date End Date Porfirio Goodman MD 505 [place] [address] PCP - General Internal Medicine 12/05/19 Luli Sosa RN 505 [place] [address] Registered Nurse Family Medicine 12/12/24 12/12/24 Marino Wisemna 12/12/24 12/12/24 Jeanine Montague 02/23/25 Amber Mittal Communications SuperintendentCutter Wet Machine 04/20/24 documented as of this encounter
--- OUTSIDE RECORDS SUMMARY | 2025-04-03 09:36 | XMS_ITS | Encounter Summary ---
Author Organization [employer] Address 75 [facility] 7 [place] [address] Care Team Providers Care Steam Conditioner Filling Name Role Phone Porfirio Goodman MD Primary Care Prov ider Luli Sosa RN Unavailable [phone] Marino Wiseman Unavailable Jeanine Montague Unavailable Encounter Details Date Type Department Care Team (Late st Contact Info) Description 06/05/2023 Orders Only [facility] CHC MED & PEDS 505 [place], [place] [phone] Ambika Webster MD 505 [place] [address] Essential hypertension (Primary Dx) Social History Tobacco [...] hypertension documented in this encounter Care Teams Steam Conditioner Filling Relationship Specialty Start Date End Date BaerPorfirio Escobar MD 505 [place] [address] PCP - General Internal Medicine 12/05/19 Luli Sosa RN 505 [place] [address] Registered Nurse Family Medicine 12/12/24 12/12/24 Marino Wiseman 12/12/24 12/12/24 Jeanine Montague 02/23/25 Amber Mittal Globe TesterTank Driver 04/20/24 documented as of this encounter
--- OUTSIDE RECORDS SUMMARY | 2025-04-03 09:36 | XMS_ITS | Encounter Summary ---
Author Organization [employer] Address 75 [facility] 7 [place] [address] Care Team Providers Care Message And Delivery Service Pricer Name Role Phone Porfirio Goodman MD Primary Care Prov ider Luli Sosa RN Unavailable [phone] Marino Wiseman Unavailable Jeanine Montague Unavailable Encounter Details Date Type Department Care Team (Late st Contact Info) Description 10/29/2023 Orders Only [facility] CHC MED & PEDS 505 [place], [place] [phone] Ambika Webster MD 505 [place], [place] [phone] Low vitamin D level (Primary Dx); Other [...] anemia documented in this encounter Care Teams Message And Delivery Service Pricer Relationship Specialty Start Date End Date Porfirio Goodman MD 505 [place] [address] PCP - General Internal Medicine 12/05/19 Luli Sosa RN 505 [place] [address] Registered Nurse Family Medicine 12/12/24 12/12/24 Marino Wiseman 12/12/24 12/12/24 Jeanine Montague 02/23/25 Amber Mittal Monkey KeeperManager Training 04/20/24 documented as of this encounter
--- OUTSIDE RECORDS SUMMARY | 2025-04-03 09:36 | XMS_ITS | Encounter Summary ---
Author Organization [employer] Address 75 [facility] [place] [address] Care Team Providers Care Donor Recruitment Manager Name Role Phone Porfirio Goodman MD Primary Care Prov ider Luli Sosa RN Unavailable [phone] Marino Wiseman Unavailable Jeanine Montague Unavailable Reason for Visit * Reason Comments Med Refill Encounter Details Date Type Department Care Team ([facility] Contact Info) Description 04/26/2024 Refill [facility] CHC MED & PEDS 505 [place], [place] [phone] Porfirio Goodman MD 505 [place], [place] [phone] Social History Tobacco Use Types Packs/Day Years [...] on filedocumented in this encounter Care Teams Donor Recruitment Manager Relationship Specialty Start Date End Date Porfirio Goodman MD 505 [place] [address] PCP - General Internal Medicine 12/05/19 Luli Sosa RN 505 [place] [address] Registered Nurse Family Medicine 12/12/24 12/12/24 Marino Wiseman 12/12/24 12/12/24 Jeanine Montague 02/23/25 Amber Mittal Sticker Machine OperatorUnderwriting Sales Representative 04/20/24 documented as of this encounter
--- OUTSIDE RECORDS SUMMARY | 2025-04-03 09:36 | XMS_ITS | Encounter Summary ---
Author Organization [employer] Address 75 [facility] 7 [place] [address] Care Team Providers Care Napper Tender Name Role Phone Porfirio Goodman MD Primary Care Prov ider Jeanine Montague Unavailable Encounter Details Date Type Department Care Team (Late st Contact Info) Description 03/29/2025 Orders Only [facility] External Provider, [facility] Social History Tobacco Use Types Packs/Day [...] PM EDT Narrative 03/29/2025 3:20 PM EDT [place] [address] XRay Report Signed Patient: Kyle Pool MR#: [id number] : 1975 Acct:[id number] Age/Sex: 50 / F ADM Date: 03/29/25 Loc: .ED Attending Dr: Ordering Physician: Amber Chakraborty Date of Service: 03/29/25 Procedure(s): XR hand LT min 3V Accession Number(s): [id number] cc: Porfirio Goodman MD; Amber Chakraborty Reason [...] 03/29/25 1518 DD/ 1417 TD/TT: 03/29/25 151 Mechanical Tech: Procedure Note Donotuseinterpreter, Image - 03/29/[address] [address] XRay Report Signed Patient: Kyle Pool AMR#: [id number] : 1975Acct:[id number] Age/Sex: 50 / FADM Date: 03/29/25 Loc: HO.ED Attending Dr: Ordering Physician: Amber Chakraborty Date of Service: 03/29/25 Procedure(s): XR hand LT min 3V Accession Number(s): [id number] cc: Porfirio Goodman MD; Amber Chakraborty Reason [...] 03/29/25 1518 DD/ 1417 TD/TT: 03/29/25 1514 Mechanical Tech: [facility] External Provider IMG XR PROCEDURES Final Result documented in this encounter Visit Diagnoses Not on filedocumented in this encounter Care Teams Napper Tender Relationship Specialty Start Date End Date Porfirio Goodman MD [address] [place] [address] PCP - General Internal Medicine 12/05/19 Jeanine Montague 02/23/25 Amber Mittal Garde ManagerConvenience Store Clerk 04/20/24 documented as of this encounter
--- OUTSIDE RECORDS SUMMARY | 2025-04-03 09:36 | XMS_ITS | Encounter Summary ---
Author Organization [email or web address] Address 75 [facility] 7 [place] [address] Care Team Providers Care Wet Chemistry Analyst Name Role Phone Porfirio Goodman MD Primary Care Prov ider Luli Sosa RN Unavailable [phone] Marino Wiseman Unavailable Jeanine Montague Unavailable Reason for Visit * Reason Onset Date Comments Call Back Request 07/24/2023 Encounter Details Date Type Department Care Team ([facility] st Contact Info) Description 07/24/2023 Telephone [facility] CHC MED & PEDS 505 [place], [place] [phone] Porfirio Goodman MD 505 [place], [place] [phone] Call Back Request Social History Tobacco Use [...] on filedocumented in this encounter Care Teams Wet Chemistry Analyst Relationship Specialty Start Date End Date Porfirio Goodman MD 505 [place] [address] PCP - General Internal Medicine 12/05/19 Luli Sosa RN 505 [place] [address] Registered Nurse Family Medicine 12/12/24 12/12/24 Marino Wiseman 12/12/24 12/12/24 Jeanine Montague 02/23/25 Amber Mittal Sal[employer] OfficerRespooler 04/20/24 documented as of this encounter
--- OUTSIDE RECORDS SUMMARY | 2025-04-03 09:36 | XMS_ITS | Encounter Summary ---
Author Organization [employer] Address 75 [facility] 7 [place] [address] Care Team Providers Care Emc Storage Architect Name Role Phone Porfirio Goodman MD Primary Care Prov ider Luli Sosa RN Unavailable [phone] Marino Wiseman Unavailable Jeanine Montague Unavailable Encounter Details Date Type Department Care Team (Late st Contact Info) Description 04/28/2024 Orders Only [facility] CHC MED & PEDS 505 [place], [place] [phone] Ambika Webster MD 505 [place], [place] [phone] Class 3 severe obesity due to excess [...] Primary documented in this encounter Care Teams Emc Storage Architect Relationship Specialty Start Date End Date Porfirio Goodman MD 505 [place] [address] PCP - General Internal Medicine 12/05/19 Luli Sosa RN 505 [place] [address] Registered Nurse Family Medicine 12/12/24 12/12/24 Marino Wiseman 12/12/24 12/12/24 Jeanine Montague 02/23/25 Amber Mittal Top CutterSenior Coldfusion Developer 04/20/24 documented as of this encounter
--- OUTSIDE RECORDS SUMMARY | 2025-04-03 09:36 | XMS_ITS | Encounter Summary ---
Author Organization [employer] Address 75 [facility] 7 [place] [address] Care Team Providers Care Section Laborer Name Role Phone Porfirio Goodman MD Primary Care Prov ider Luli Sosa RN Unavailable [phone] Marino Wiseman Unavailable Jeanine Montague Unavailable Reason for Visit * Reason Onset Date Comments Med Refill 06/27/2024 Encounter Details Date Type Department Care Team (Late st Contact Info) Description 06/27/2024 Refill [facility] CHC MED & PEDS 505 [place], [place] [phone] Porfirio Goodman MD 505 [place], [place] [phone] Social History Tobacco Use Types Packs/Day Years [...] on filedocumented in this encounter Care Teams Section Laborer Relationship Specialty Start Date End Date Porfirio Goodman MD 505 [place] [address] PCP - General Internal Medicine 12/05/19 Luli Sosa RN 505 [place] [address] Registered Nurse Family Medicine 12/12/24 12/12/24 Marino Wiseman 12/12/24 12/12/24 Jeanine Montague 02/23/25 Amber Mittal Engraver BlockCard Brusher 04/20/24 documented as of this encounter
--- OUTSIDE RECORDS SUMMARY | 2025-04-03 09:36 | XMS_ITS | Encounter Summary ---
Author Organization [employer] Address 75 [facility] 7 [place] [address] Care Team Providers Care Armature Coil Winder Name Role Phone Porfirio Goodman MD Primary Care Prov ider Luli Sosa RN Unavailable [phone] Marino Wiseman Unavailable Jeanine Montague Unavailable Reason for Visit * Reason Onset Date Comments Nurse Triage 01/01/2024 Encounter Details Date Type Department Care Team (Late st Contact Info) Description 01/01/2024 Telephone [facility] MEDICINE [address] [place] [address] Porfirio Goodman MD 505 [place], [place] [phone] Nurse Triage Social History Tobacco Use Types [...] on filedocumented in this encounter Care Teams Armature Coil Winder Relationship Specialty Start Date End Date Porfirio Goodman MD 505 [place] [address] PCP - General Internal Medicine 12/05/19 Luli Sosa RN 505 [place] [address] Registered Nurse Family Medicine 12/12/24 12/12/24 Marino Wiseman 12/12/24 12/12/24 Jeanine Montague 02/23/25 Amber Mittal Brace End Mainspring FormerWarehouse Unloader 04/20/24 documented as of this encounter
--- OUTSIDE RECORDS SUMMARY | 2025-04-03 09:36 | XMS_ITS | Encounter Summary ---
Author Organization [employer] Address [address] [facility] [address] 7t [place] [address] Care Team Providers Care Utilization Management Manager Name Role Phone Porfirio Goodman MD Primary Care Prov ider Luli Sosa RN Unavailable [phone] Marino Wiseman Unavailable Jeanine Montague Unavailable Encounter Details Date Type Department Care Team (Late st Contact Info) Description 08/25/2024 Orders Only [facility] MEDICINE 230 [place] [address] Provider, MD Russell Social History Tobacco Use [...] on filedocumented in this encounter Care Teams Utilization Management Manager Relationship Specialty Start Date End Date Porfirio Goodman MD 505 [place] [address] PCP - General Internal Medicine 12/05/19 Luli Sosa RN 505 [place] [address] Registered Nurse Family Medicine 12/12/24 12/12/24 Marino Wiseman 12/12/24 12/12/24 Jeanine Montague 02/23/25 Amber Mittal Machine FarmworkerPre Sales Technical Consultant 04/20/24 documented as of this encounter
--- OUTSIDE RECORDS SUMMARY | 2025-04-03 09:36 | XMS_ITS | Encounter Summary ---
Author Organization [employer] Address 75 [facility] [address] [place] [address] Care Team Providers Care Fire Management Technician Name Role Phone Porfirio Goodman MD Primary Care Prov ider Luli Sosa RN Unavailable [phone] Marino Wiseman Unavailable Jeanine Montague Unavailable Reason for Visit * Reason Onset Date Comments Nurse Triage 02/29/2024 Encounter Details Date Type Department Care Team (Late st Contact Info) Description 02/29/2024 Telephone [facility] MEDICINE 230 [place] [address] Porfirio Goodman MD 505 [place], [place] [phone] Nurse Triage Social History Tobacco Use Types [...] answer. Left voice message x2 to call [facility] triage line at [phone] when Pt gets an opportunity. * Telephone Encounter - Mamie Goncalves - 02/29/2024 9:14 AM EDT Symptom: Fall Outcome: Schedule an appointment to be seen within 24 hours Reason: body aches The caller accepted this outcome documented in this encounter Plan of Treatment Not on file documented as of this encounter Visit Diagnoses Not on filedocumented in this encounter Care Teams Fire Management Technician Relationship Specialty Start Date End Date Porfirio Goodman MD 505 [place], [place] [phone] PCP - General Internal Medicine 12/05/19 Luli Sosa RN 505 [place], [place] [phone] Registered Nurse Family Medicine 12/12/24 12/12/24 Marino Wiseman 12/12/24 12/12/24 Jeanine Montague 02/23/25 Amber Mittal HistopathologistAccessibility Lift Technician 04/20/24 documented as of this encounter
--- OUTSIDE RECORDS SUMMARY | 2025-04-03 09:36 | XMS_ITS | Encounter Summary ---
Author Organization [employer] Address 75 [facility] 7 [place] [address] Care Team Providers Care Wallcovering Texturer Name Role Phone Porfirio Goodman MD Primary Care Prov ider Luli Sosa RN Unavailable [phone] Marino Wiseman Unavailable Jeanine Montague Unavailable Reason for Visit * Reason Onset Date Comments Medication Question 08/02/2024 Encounter Details Date Type Department Care Team ([facility] st Contact Info) Description 08/02/2024 Telephone [facility] CHC MED & PEDS 505 [place], [place] [phone] Porfirio Goodman MD 505 [place], [place] [phone] Medication Question Social History Tobacco Use Types [...] on filedocumented in this encounter Care Teams Wallcovering Texturer Relationship Specialty Start Date End Date Porfirio Goodman MD 505 [place] [address] PCP - General Internal Medicine 12/05/19 Luli Sosa RN [address] [place] [address] Registered Nurse Family Medicine 12/12/24 12/12/24 Marino Wiseman 12/12/24 12/12/24 Jeanine Montague 02/23/25 Amber Mittal Juvenile Correctional OfficerShipping Checker 04/20/24 documented as of this encounter
--- OUTSIDE RECORDS SUMMARY | 2025-04-03 09:36 | XMS_ITS | Encounter Summary ---
Author Organization [employer] Address [address] [address] Care Team Providers Care Service Correspondent Name Role Phone Porfirio Goodman MD Primary Care Prov ider Luli Sosa RN Unavailable [phone] Marino Wiseman Unavailable Jeanine Montague Unavailable Reason for Visit * Reason Onset Date Comments Results 09/22/2022 Encounter Details Date Type Department Care Team (Late st Contact Info) Description 09/22/2022 Telephone [facility] MEDICINE 230 [place] [address] Porfirio Goodman MD 505 [place], [place] [phone] Results Social History Tobacco Use Types Packs/Day [...] encounter Miscellaneous Notes * Telephone Encounter - eFrmín Childers - 09/22/2022 4:22 PM EST Tc from pt requesting XR results please contact pt at [phone] documented in this encounter Plan of Treatment Not on file documented as of this encounter Visit Diagnoses Not on filedocumented in this encounter Care Teams Service Correspondent Relationship Specialty Start Date End Date Porfirio Goodman MD 505 [place] [address] PCP - General Internal Medicine 12/05/19 Luli Sosa RN 505 [place] [address] Registered Nurse Family Medicine 12/12/24 12/12/24 Marino Wiseman 12/12/24 12/12/24 Jeanine Montague 02/23/25 Amber Mittal Airborne Mission Systems SuperintendentRadiology Technician 04/20/24 documented as of this encounter
--- OUTSIDE RECORDS SUMMARY | 2025-04-03 09:36 | XMS_ITS | Encounter Summary ---
Author Organization [employer] Address 75 [facility] 7 [place] [address] Care Team Providers Care International Student Counselor Name Role Phone Porfirio Goodman MD Primary Care Prov ider Luli Sosa RN Unavailable [phone] Marino Wiseman Unavailable Jeanine Montague Unavailable Reason for Visit * Reason Onset Date Comments Error (VOID this visit) 04/27/2024 Encounter Details Date Type Department Care Team ([facility] st Contact Info) Description 04/27/2024 Telephone [facility] CHC MED & PEDS 505 [place], [place] [phone] Porfirio Goodman MD 505 [place], [place] [phone] Error (VOID this visit) Social History Tobacco [...] - 04/28/2024 9:15 AM EDT TC to [facility] pharmacy, pharmacist states somehow wegovy appeared in their system as no longer having refills. Med queued to covering provider. * Telephone Encounter - Halima Rogers - 04/27/2024 4:11 PM EDT Tc from pt requesting to speak to nurse regarding medication Semaglutide-Weight Management (Wegovy)0.5 MG/0.5ML solution auto-injector. Refill was denied. Contact pt at [phone] documented in this encounter Plan of Treatment Not on file documented as of this encounter Visit Diagnoses Not on filedocumented in this encounter Care Teams International Student Counselor Relationship Specialty Start Date End Date Porfirio Goodman MD 505 [place] [address] PCP - General Internal Medicine 12/05/19 Luli Sosa RN 505 [place] [address] Registered Nurse Family Medicine 12/12/24 12/12/24 Marino Wiseman 12/12/24 12/12/24 Jeanine Montague 02/23/25 Amber Mittal Manager EducationalMotor And Generator Assembler 04/20/24 documented as of this encounter
--- OUTSIDE RECORDS SUMMARY | 2025-04-03 09:36 | XMS_ITS | Encounter Summary ---
Author Organization [employer] Address 75 [facility] [address] [place] [address] Care Team Providers Care Deicer Element Winder Machine Name Role Phone Porfirio Goodman MD Primary Care Prov ider Luli Sosa RN Unavailable [phone] Marino Wiseman Unavailable Jeanine Montague Unavailable Reason for Visit * Reason Onset Date Comments Appointment Request 07/15/2023 Encounter Details Date Type Department Care Team (Late st Contact Info) Description 07/15/2023 Telephone [facility] MEDICINE [address] [place] [address] Porfirio Goodman MD [address] [place], [place] [phone] Appointment Request Social History Tobacco Use Types [...] on filedocumented in this encounter Care Teams Deicer Element Winder Machine Relationship Specialty Start Date End Date Porfirio Goodman MD [address] [place] [address] PCP - General Internal Medicine 12/05/19 Luli Sosa RN 505 [place] [address] Registered Nurse Family Medicine 12/12/24 12/12/24 Marino Wiseman 12/12/24 12/12/24 Jeanine Montague 02/23/25 Amber Mittal Assembler BondingFixture Designer 04/20/24 documented as of this encounter
--- OUTSIDE RECORDS SUMMARY | 2025-04-03 09:36 | XMS_ITS | Encounter Summary ---
Author Organization [employer] Address [address] [facility] 7t [place] [address] Care Team Providers Care Production Planning Manager Name Role Phone Porfirio Goodman MD Primary Care Prov ider Luli Sosa RN Unavailable [phone] Marino Wiseman Unavailable Jeanine Montague Unavailable Encounter Details Date Type Department Care Team (Late st Contact Info) Description 10/19/2024 Telephone [facility] MEDICINE 230 [place] [address] Porfirio Goodman MD 505 [place] [address] Social History Tobacco Use Types Packs/Day Years [...] hasn't received a call. Contact pt at [phone] documented in this encounter Plan of Treatment Not on file documented as of this encounter Visit Diagnoses Not on filedocumented in this encounter Care Teams Production Planning Manager Relationship Specialty Start Date End Date BaerPorfirio Escobar MD 505 [place] [address] PCP - General Internal Medicine 12/05/19 Luli Sosa RN 505 [place] [address] Registered Nurse Family Medicine 12/12/24 12/12/24 Marino Wiseman 12/12/24 12/12/24 Jeanine Montague 02/23/25 Amber Mittal Licensed PharmacistSheriff Detective 04/20/24 documented as of this encounter
--- OUTSIDE RECORDS SUMMARY | 2025-04-03 09:36 | XMS_ITS | Encounter Summary ---
Author Organization [employer] Address 75 [facility] 7[facility] [place] [address] Care Team Providers Care Manager Educational Name Role Phone Porfirio Goodman MD Primary Care Prov ider Luli Sosa RN Unavailable [phone] Marino Wiseman Unavailable Jeanine Montague Unavailable Reason for Visit * Reason Comments Med Refill Encounter Details Date Type Department Care Team ([facility] Contact Info) Description 04/27/[address] [facility] CHC MED & PEDS 505 [place], [place] [phone] Porfirio Goodman MD 505 [place], [place] [phone] Social History Tobacco Use Types Packs/Day Years [...] filedocumented in this encounter Care Teams Manager Educational Relationship Specialty Start Date End Date Porfirio Goomdan MD 505 [place] [address] PCP - General Internal Medicine 12/05/19 Luli Sosa RN 505 [place] [address] Registered Nurse Family Medicine 12/12/24 12/12/24 Marino Wiseman 12/12/24 12/12/24 Jeanine Montague 02/23/25 Amber Mittal Perishable Fruit InspectorNew Car Get Ready Mechanic 04/20/24 documented as of this encounter
--- OUTSIDE RECORDS SUMMARY | 2025-04-03 09:36 | XMS_ITS | Clinical Summary ---
Author Organization [facility] ity Address [address] [place] [address] Care Team Providers Care Bench Patternmaker Metal Name Role Phone Porfirio Goodman Primary Care Provide r Surgical History Surgery Date Site/Laterality Comments OTHER SURGICAL HISTORY PROCEDURE: ND SURGICAL ARTHROSCOPY LAURO W/CORACOACRM LIGM RLS; COMMENT: both shoulders GASTRIC BYPASS PROCEDURE: GASTRIC BYPASS FOR OBESIT; COMMENT: gastric sleeve OTHER SURGICAL HISTORY PROCEDURE: ANESTHESIA FOR SECTION OTHER SURGICAL HISTORY 08/08/2022 PROCEDURE: ND ARTHRODESIS SI JOINT PERCUTANEOUS/MIN INVASIVE; COMMENT: Right [...] 07/06/2022 Social Influencers of Health Screening 07/06/2022 Depression Screening 07/27/2024 Zoster Vaccines (1 of 2) 2025 COVID-19 Vaccine (1 - 2023-2 5 season) 2025 Influenza Vaccine (#1) 2025 05/14/2018 DTaP,Tdap,and [...] age to complete this topic Care Teams Bench Patternmaker Metal Relationship Specialty Start Date End Date Porfirio Goodman [address] [place] [address] PCP - General Internal Medicine 04/02/22
--- OUTSIDE RECORDS SUMMARY | 2025-04-03 09:36 | XMS_ITS | Encounter Summary ---
Author Organization [employer] [facility] [employer] Address [address] [facility] [address] [place] [address] Care Team Providers Care Sleeve Tailor Name Role Phone Porfirio Goodman MD Primary Care Prov ider Luli Sosa RN Unavailable [phone] Marino Wiseman Unavailable Jeanine Montague Unavailable Reason for Visit * Reason Onset Date Comments Results 06/27/2024 Encounter Details Date Type Department Care Team (Late st Contact Info) Description 06/27/2024 Telephone [facility] MEDICINE [address] [place] [address] Porfirio Goodman MD [address] [place], [place] [phone] Results Social History Tobacco Use Types Packs/Day [...] Date when done: 06/22/24 Facility: [facility] Labs documented in this encounter Plan of Treatment Not on file documented as of this encounter Visit Diagnoses Not on filedocumented in this encounter Care Teams Sleeve Tailor Relationship Specialty Start Date End Date Porfirio Goodman MD [address] [place] [address] PCP - General Internal Medicine 12/05/19 Luli Sosa RN [address] [place] [address] Registered Nurse Family Medicine 12/12/24 12/12/24 Marino Wiseman 12/12/24 12/12/24 Jeanine Montague 02/23/25 Amber Mittal Traffic AssistantGarage Hand 04/20/24 documented as of this encounter
--- OUTSIDE RECORDS SUMMARY | 2025-04-03 09:36 | XMS_ITS | Clinical Summary ---
Author Organization [employer] [employer] Address [address] [place] [address] 7 [place] [address] Care Team Providers Care Tractor Trailer Driver Name Role Phone Porfirio Goodman MD Primary Care Prov ider Jeanine Montague Unavailable Allergies Active Allergy Reactions Criticality Noted Date Comments Amoxicillin Anaphylaxis High 10/25/2018 Amoxicillin-Pot Clavulanate 09/19/2022 Other reaction(s): Difficulty breathing Azithromycin Anaphylaxis,Other High 10/16/2010 Other reaction(s): unspecified azithromycin Capsaicin Itching 03/30/2025 Clavulanic Acid 10/16/2010 Other reaction(s): unspecified unknown Diphenhydramine 11/01/2021 Hydrocodone Anaphylaxis High 10/16/2010 Other reaction(s): Difficulty breathing, unspecified Trouble breathing Hydrocodone-Acetaminophe n Shortness of breath High 05/16/2021 Hydromorphone Other 12/08/2024 hydromorphone Levofloxacin Anaphylaxis High 10/16/2010 Other reaction(s): unspecified Metoclopramide 11/01/2021 Nabumetone 11/01/2021 Ondansetron 11/01/2021 Penicillin G 03/30/2025 Penicillin V Other 12/08/2024 penicillin V potassium [...] mouth Once per day. 90 tablet 3 025 2025 Active meclizine (Antivert) 25 MG tablet Take 1 tablet (25 mg) by mouth if needed in the morning, at noon, in the evening, and at bedtime for dizziness. 60 tablet 1 025 2025 Active Blood Pressure kit 1 kit Once per day. 1 kit Active Tirzepatide-Martin ght Management (Zepbound) 10 MG/0.5ML solution auto-injector Inject 0.5 mL (10 mg) under the skin 1 (one) time per week. 2 mL 3 Active Ventolin HFA 108 (90 Base) MCG/ACT inhaler INHALE 2 PUFFS INTO THE LUNGS EVERY 2 TO 6 HOURS NEEDED 18 g Active docusate sodium (Colace) 100 MG capsule TAKE ONE CAPSULE BY MOUTH TWICE DAILY NEEDED FOR CONSTIPATION 180 capsule Active linaCLOtide (Linzess) 145 MCG capsule Take 1 capsule (145 mcg) by mouth before breakfast. Do not crush or chew. 30 capsule 11 025 2025 Active methocarbamol (Robaxin) 750 MG tablet TAKE 1 TABLET BY MOUTH FOUR TIMES DAILY NEEDED 60 tablet 3 Active omeprazole (PriLOSEC) [address] capsuleIndicati ons:Gastroesoph ageal reflux disease without esophagitis TAKE 1 CAPSULE BY MOUTH EVERY DAY BEFORE A MEAL 90 capsule Active mupirocin (Bactroban) 2 % ointment Apply topically 3 times daily for 7 days. 22 g 025 2024 Active acetaminophen (Tylenol 8 Hour) 650 MG ER tablet Take 1 tablet (650 mg) by mouth every 8 (eight) hours if needed for mild pain or headaches. Do not crush, chew, or split. 40 tablet 1 025 2024 Active ibuprofen 600 MG tablet Take 1 tablet (600 mg) by mouth every 6 (six) hours if needed for mild pain or fever. 40 tablet 1 025 2025 Active methocarbamol (Robaxin) 750 MG tablet TAKE 1 TABLET BY MOUTH FOUR TIMES DAILY NEEDED 60 tablet 3 025 2024 Discontinued(R eorder (will not trigger notification to Pharmacy)) omeprazole (PriLOSEC) [address] capsuleIndicati ons:Gastroesoph ageal reflux disease without esophagitis TAKE 1 CAPSULE BY MOUTH EVERY DAY BEFORE A MEAL 90 capsule 025 2024 Discontinued Acetaminophen Extra Strength 500 MG tablet TAKE 2 TABLETS BY MOUTH EVERY 6 HOURS NEEDED FOR PAIN OR FEVER 30 tablet 025 2024 Discontinued Active Problems Problem Noted Date Diagnosed Date [...] ched[place] [facility] [place]. Assessment & Plan (07/27/2023 4:20 [...] Pt not opioid naive -Follow up with [facility] [place] as scheduled -Cont with symptomatic management [...] is scheduled ofr left knee surgery [facility], refers able to bear weight, but it [...] Encounters Date Type Department Care Team Description 03/30/2025 11:00 AM EDT Office Visit [facility] [address] [address] Leidy Morelos DO Localized swelling on left hand (Primary Dx) 03/30/2025 Travel 03/30/2025 Refill [facility] [address] [place] [address] Porfirio Goodman MD Gastroesophageal reflux disease without esophagitis 03/29/2025 Orders Only [facility] External Provider, [facility] 03/17/2025 10:15 AM EDT Telemedicine [facility] [address] [place] [address] Porfirio Goodman MD Weakness (Primary Dx) 03/17/2025 Refill [facility] [address] [place] [address] Leidy Morelos DO 03/17/2025 Travel 03/16/2025 Telephone [facility] [address] [place] [address] Porfirio Goodman MD chart prep 03/13/2025 Refill [facility] [address] [place] [address] Porfirio Goodman MD 02/28/2025 Telephone [facility] [address] [place] [address] Porfirio Goodman MD Med Refill 02/27/2025 Patient Outreach [facility] [address] [place] [address] Porfirio Goodman MD Care Coordination (Communication to PT assigned CP Coordinator) 02/24/2025 Refill [facility] [address] [place] [address] Porfirio Goodman MD 02/24/2025 Refill [facility] [address] [place] [address] Castillo Nunez MD 02/23/2025 Patient Outreach [facility] [address] [place] [address] Porfirio Goodman MD Care Coordination ([facility] ED F/U) 02/23/2025 Patient Outreach [facility] [address] [place] [address] Porfirio Goodman MD Care Coordination (CP Care Coordination Chart Review) 02/23/2025 Patient Outreach [facility] [address] [place] [address] Porfirio Goodman MD 01/29/2025 Refill [facility] [address] [place] [address] Porfirio Goodman MD 01/19/2025 8:30 AM EDT Telemedicine [facility] [address] [place] [address] Porfirio Goodman MD Class 2 severe obesity due to excess calories with serious comorbidity and body mass index (BMI) of 38.0 to 38.9 in adult ([facility]) (Primary Dx); Screening for colon cancer 01/19/2025 Travel 01/18/2025 Telephone [facility] [address] [place] [address] Porfirio Goodman MD chart prep 01/03/2025 1:00 PM EDT Office Visit [facility] [address] [place] [address] Clarice Cox MD Wrist swelling, left (Primary Dx); Left wrist pain 01/03/2025 Travel 01/03/2025 Refill [facility] [address] [place] [address] Porfirio Goodman MD Gastroesophageal reflux disease without [...] Mass Index 37.38 03/30/2025 11:15 AM EDT Plan of Treatment Health Maintenance [...] PCV) 08/01/2010 08/01/2009 Depression Screening 08/27/2023 08/27/2022, 08/27/19 23 Cervical Cancer Screening 10/29/2023 HPV/Cotest 10/29/2023 10/28/2018 Pap Smear 10/29/2023 10/28/2018 SDOH Screening 01/31/2025 02/01/2024 Zoster Vaccines (1 of 2) 2025 COVID-19 Vaccine (1 - season) 2025 Influenza Vaccine (#1) 2025 8, 04/15/2013, 04/05/2012, Additional history exists Tobacco Screening 03/30/2026 03/30/2025 Mammogram 05/04/2026 05/04/2024 Lipid Panel 10/14/2027 10/13/2022, 02/06/2022 DTaP/Tdap/Td Vaccines (5 - Td or Tdap) 03/29/2035 03/29/2025, 04/26/2018, 01/14/2018, Additional history exists RSV Patients and Patients Aged 60 years or older (1 - 1-dose 75+ series) 2050 HIV Screening Completed 10/13/2022, 02/06/2022 Hepatitis C Screening Completed 10/13/2022, 022 HIB Vaccines Aged Out No longer eligi [...] PM EDT Narrative 03/29/2025 3:20 PM EDT [address] [place] [address] XRay Report Signed Patient: Kyle Pool MR#: [id number] : 1975 Acct:[id number] Age/Sex: 50 / F ADM Date: 03/29/25 Loc: HO.ED Attending Dr: Ordering Physician: Amber Chakraborty Date of Service: 03/29/25 Procedure(s): XR hand LT min 3V Accession Number(s): [id number] cc: Porfirio Goodman MD; Amber Chakraborty Reason [...] 03/29/25 1518 DD/ 1417 TD/TT: 03/29/25 1514 Child Welfare Assistant: Procedure Note Donotuseinterpreter, Image - 03/29/[address] [address] XRay Report Signed Patient: Kyle Pool AMR#: [id number] : 1975Acct:[id number] Age/Sex: 50 / FADM Date: 03/29/25 Loc: .ED Attending Dr: Ordering Physician: Amber Chakraborty Date of Service: 03/29/25 Procedure(s): XR hand LT min 3V Accession Number(s): [id number] cc: Porfirio Goodman MD; Amber Chakraborty Reason [...] 03/29/25 1518 DD/ 1417 TD/TT: 03/29/25 1514 Child Welfare Assistant: [facility] External Provider IMG XR PROCEDURES Final Result * XR Wrist 3+ Views Left (01/09/2025 4:15 PM EDT) Anatomical Region Laterality Modality Upper Extremities, Wrist Left Radiogr aphic Imaging 01/09/2025 4:15 PM EDT Narrative 01/09/2025 4:34 PM EDT [place] [address] XRay Report Signed Patient: Kyle Pool MR#: [id number] : 1975 Acct:[id number] Age/Sex: 49 / F ADM Date: 01/09/25 Loc: HO.ED Attending Dr: Ordering Physician: Generic ED Physician Date of Service: 01/09/25 Procedure(s): XR wrist LT min 3V Accession Number(s): [id number] cc: Porfirio Goodman MD; Generic ED Physician [...] 01/09/25 1631 DD/ 1615 TD/TT: 01/09/25 1620 Child Welfare Assistant: Procedure Note Donotuseinterpreter, Image - 01/09/2025 [place] [address] XRay Report Signed Patient: Kyle Pool AMR#: [id number] : 1975Acct:[id number] Age/Sex: 49 / FADM Date: 01/09/25 Loc: HO.ED Attending Dr: Ordering Physician: Generic ED Physician Date of Service: 01/09/25 Procedure(s): XR wrist LT min 3V Accession Number(s): [id number] cc: Porfirio Goodman MD; Generic ED Physician [...] 01/09/25 1631 DD/ 1615 TD/TT: 01/09/25 1620 Child Welfare Assistant: [facility] External Provider IMG XR PROCEDURES Final Result * Lyme Disease Ab with Reflex to Blot (IgG, IgM) (01/03/2025 12:11 PM EDT) Pathologist [facility] Lyme Antibody Screen <0.90 index [facility] Comment:Index Interpretation ----- < 0.90 Negative 0.90-1.09 Equivocal > [...] when erythemamigrans is apparent.THIS TEST WAS PERFORMED AT:[employer] [place] [phone] MEYER MD [facility] 01/03/2025 12:1 1 PM EDT 01/03/2025 1:20 PM EDT Clarice Cox MD LAB BLOOD ORDERABLES Final Result Performing Organization Address City/[facility]/ZIP Co de Phone Number [facility] [address] [place] [phone] * Uric acid (01/03/2025 12:11 PM EDT) Pathologist [facility] Uric Acid 2.7 2.4 - 5.7 mg/dL [facility] Blood Venous blood specimen / Unknown 01/03/2025 12:11 PM EDT 01/03/2025 1:20 PM EDT Clarice Cox MD LAB BLOOD ORDERABLES Final Result Performing Organization Address City/[facility]/ZIP Co de Phone Number [facility] [address] [place] [phone] * Hm Mammography (05/04/2024 10:27 AM EDT) Anatomical Region Laterality Modality Other Historical Provider HEALTH MAINTENANCE Final Result * HIV-1 RNA, Quantitative, Real-Time PCR with Reflex to Genotype (RTI, PI, Integrase) (10/13/2022 11:02 AM EDT) HIV 1 RNA, QN PCR NOT DETECTED copies/mL [facility], HIV 1 RNA, QN PCR NOT DETECTED Log copies/mL [facility], Comment: REFERENCE RANGE: NOT DETECTED copies/mL NOT DETECTED Log copies/mL This test was performed using Real-Time Polymerase Chain Reaction. Reportable range is 20 to 10,000,000 copies/mL (1.30-7.00 Log copies/mL). 10/13/2022 11:0 2 AM EDT 10/13/2022 11:02 AM EDT Meenakshi Dyson REPEAT PHOTOCOMPOSING MACHINE OPERATOR LAB BLOOD ORDERABLES Final Resu lt [facility] [address], [place] [address] [facility], [address] [place] [address] * Hepatitis Panel, General (10/13/2022 11:02 AM EDT) Hepatitis A Antibody Total NON-REACT PAUL NON-REACT PAUL [facility] Comment: For additional information, please refer to http://education.Kyruus.Resonant Vibes/faq/GEY684 (This link is being provided for informational/ educational purposes only.) Hepatitis B Surface Antibody QL NON-REACT PAUL NON-REACT PAUL [facility] Hepatitis B Surface Ag NON-REACT PAUL NON-REACT PAUL [facility] Hepatitis B Core Antibody Total NON-REACT PAUL NON-REACT PAUL [facility] Hepatitis C Antibody NON-REACT PAUL NON-REACT PAUL [facility] Index 0.05 <1.00 [facility] Comment: HCV antibody was non-reactive. There is no laboratory evidence of HCV infection. In most cases, no further action is required. However, if recent HCV exposure is suspected, a test for HCV RNA (test code 43876) is suggested. For additional information please refer to http://Wealth Access.Napartner/faq/QVT71h9 (This link is being provided for informational/ educational purposes only.) 10/13/2022 11:0 2 AM EDT 10/13/2022 11:02 AM EDT Meenakshi Dyson [facility] LAB BLOOD ORDERABLES Final Resu lt [address], [place] [address] [facility] [address] [place] [address] * (ABNORMAL) Lipid Panel, Standard (10/13/2022 11:02 AM EDT) [facility] Signature Cholesterol, Total 190 <200 mg/dL [email or web address] HDL Cholesterol 52 > OR = 50 mg/dL [facility] Triglycerides 77 <150 mg/dL [facility] LDL Cholesterol 121(H) mg/dL (calc) [facility] Comment: Reference range: <100 Desirable range <100 mg/dL for primary prevention; <70 mg/dL for patients with CHD or diabetic patients with > or = 2 CHD risk factors. LDL-C is now calculated using the Ajay-Mark Anthony calculation, which is a validated novel method providing better accuracy than the Friedewald equation in the estimation of LDL-C. Ajay NION et al. KEYONA. 2013;310(19): 0503-9346 (http://Wealth Access.MyRugbyCV.Com/faq/DGL753) Chol/HDLC Ratio 3.7 <5.0 (calc) [facility] Non-HDL Cholesterol 138(H) <130 mg/dL (calc) [facility] Comment: For patients with diabetes plus 1 major ASCVD risk factor, treating to a non-HDL-C goal of <100 mg/dL (LDL-C of <70 mg/dL) is considered a therapeutic option. Blood Venous blood specimen / Unknown 10/13/2022 11:02 AM EDT 10/13/2022 11:02 AM EDT Meenakshi Dyson REPEAT PHOTOCOMPOSING MACHINE OPERATOR LAB BLOOD ORDERABLES Final Resu lt [email or web address] [address], [place] [address] [facility] [address] [place] [address] * Pap Smear (10/28/2018) Pap Negative for intraephithelial lesion or malignancy Negative for intraephithelial lesion or malignancy, Other HPV Undetected Undetected, Indeterminate, Quantitative, Not Detected Historical Provider MD HEALTH MAINTENANCE Final Result from Last 3 Months or Most Recently Relevant to Health Maintenance Insurance C3 Care Teams Tractor Trailer Driver Relationship Specialty Start Date End Date Porfirio Goodman MD [address] [place] [address] PCP - General Internal Medicine 12/05/19 Jeanine Montague 02/23/25 Amber Mittal Linux ProgrammerFlexible Machining System Machinist 04/20/24
--- OUTSIDE RECORDS SUMMARY | 2025-04-03 09:36 | XMS_ITS | Encounter Summary ---
Author Organization [employer] Address [address] [facility] [address] [place] [address] Care Team Providers Care Senior Site Manager Name Role Phone Porfirio Goodman MD Primary Care Prov ider Luli Sosa RN Unavailable [phone] Marino Wiseman Unavailable Jeanine Montague Unavailable Reason for Visit * Reason Onset Date Comments Referral 04/19/2024 Encounter Details Date Type Department Care Team (Late st Contact Info) Description 04/19/[address] [facility] [address] [place] [address] Porfirio Goodman MD [address] [place], [place] [phone] Referral Social History Tobacco Use Types Packs/Day [...] 11:25 AM EDT [facility] calling to request a new referral for sleep study due toprevious one being documented in this encounter Plan of Treatment Not on file documented as of this encounter Visit Diagnoses Not on filedocumented in this encounter Care Teams Senior Site Manager Relationship Specialty Start Date End Date Porfirio Goodman MD [address] [place] [address] PCP - General Internal Medicine 12/05/19 Luli Sosa RN [address] [place] [address] Registered Nurse Family Medicine 12/12/24 12/12/24 Marino Wiseman 12/12/24 12/12/24 Jeanine Montague 02/23/25 Amber Mittal Optometry ProfessorHouse Repairer 04/20/24 documented as of this encounter
--- OUTSIDE RECORDS SUMMARY | 2025-04-03 09:36 | XMS_ITS | Encounter Summary ---
Author Organization [employer] Address [address] [facility] [place] [address] Care Team Providers Care Retail Field Supervisor Name Role Phone Porfirio Goodman MD Primary Care Prov ider Luli Sosa RN Unavailable [phone] Marino Wiseman Unavailable Jeanine Montague Unavailable Reason for Visit * Reason Onset Date Comments Prior Authorization 08/09/2024 Encounter Details Date Type Department Care Team (Late st Contact Info) Description 08/09/2024 Telephone [facility] [address] [place], [place] [phone] Porfirio Goodman MD [address] [place], [place] [phone] Prior Authorization Social History Tobacco Use Types [...] on filedocumented in this encounter Care Teams Retail Field Supervisor Relationship Specialty Start Date End Date Porfirio Goodman MD [address] [place] [address] PCP - General Internal Medicine 12/05/19 Luli Sosa RN [address] [place] [address] Registered Nurse Family Medicine 12/12/24 12/12/24 Marino Wiseman 12/12/24 12/12/24 Jeanine Montague 02/23/25 Amber Mittal Shank TapperBall Shagger 04/20/24 documented as of this encounter
--- OUTSIDE RECORDS SUMMARY | 2025-04-03 09:36 | XMS_ITS | Encounter Summary ---
Author Organization [employer] Address [address] [facility] 7 [place] [address] Care Team Providers Care Spacer Type Bar And Segment Name Role Phone Porfirio Goodman MD Primary Care Prov ider Luli Sosa RN Unavailable [phone] Marino Wiseman Unavailable Jeanine Montague Unavailable Reason for Visit * Reason Onset Date Comments Med Refill 12/07/2024 Encounter Details Date Type Department Care Team (Late st Contact Info) Description 12/07/2024 Refill [facility] [address] [place], [place] [phone] Porfirio Goodman MD [address] [place], [place] [phone] Social History Tobacco Use Types Packs/Day Years [...] on filedocumented in this encounter Care Teams Spacer Type Bar And Segment Relationship Specialty Start Date End Date Porfirio Goodman MD [address] [place] [address] PCP - General Internal Medicine 12/05/19 Luli Sosa RN [address] [place] [address] Registered Nurse Family Medicine 12/12/24 12/12/24 Marino Wiseman 12/12/24 12/12/24 Jeanine Montague 02/23/25 Amber Mittal Eye Glass Frame PolisherSole Assessor 04/20/24 documented as of this encounter
--- OUTSIDE RECORDS SUMMARY | 2025-04-03 09:36 | XMS_ITS | Encounter Summary ---
Author Organization [facility] Address [address] [facility] [address] [place] [address] Phone Care Team Providers Care Airplane Patrol Pilot Name Role Phone Porfirio Goodman MD Primary Care Prov ider Encounter Details Date Type Department Care Team (Late st Contact Info) Description 12/29/2023 Transcribe Orders Virtual Department [address] [place] [address] Corey Carmona PA [address] [place] [address] Other spondylosis with radiculopathy, lumbosacral region (Primary [...] Primary documented in this encounter Care Teams Airplane Patrol Pilot Relationship Specialty Start Date End Date Porfirio Goodman MD [address] [place] [address] PCP - General Internal Medicine 09/18/21 documented as of this encounter Additional Source Comments The information contained in this document represents components of the legal health record. It is not the complete legal health record.[facility]
--- OUTSIDE RECORDS SUMMARY | 2025-04-03 09:36 | XMS_ITS | Encounter Summary ---
Author Organization [employer] Address [address] [facility] 7 [place] [address] Care Team Providers Care Eap Consultant Name Role Phone Porfirio Goodman MD Primary Care Prov ider Jeanine Montague Unavailable Reason for Visit * Reason Comments Med Refill Encounter Details Date Type Department Care Team ([facility] st Contact Info) Description 03/30/2025 Refill [facility] [address] [place], [place] [phone] Porfirio Goodman MD [address] [place], [place] [phone] Gastroesophageal reflux disease without esophagitis Social History Tobacco Use Types Packs/Day Years [...] as of this encounter Visit Diagnoses Diagnosis Gastroesophageal reflux disease without esophagitis Esophageal reflux documented in this encounter Care Teams Eap Consultant Relationship Specialty Start Date End Date Porfirio Goodman MD [address] [place] [address] PCP - General Internal Medicine 12/05/19 Jeanine Montague 02/23/25 Amber Mittal Flea Market SellerImmigration Judge 04/20/24 documented as of this encounter
--- OUTSIDE RECORDS SUMMARY | 2025-04-03 09:36 | XMS_ITS ---
Author Organization [employer] Address [address] [place] [address] Care Team Providers Care Utility Worker Woolen Mill Name Role Phone Porfirio Goodman MD Primary Care Prov ider Jeanine Montague Unavailable CHW Complex Status:Outreach In Progress (Enrolling) Start date:02/23/2025 Enrollment reason:ADT Feed Overview CP Assigned Patient- Pt went to [facility] ED on 02/22/25. Case Team Name Relationship Phone Jeanine Montague(Responsible Staff) [phone] Continued Care and Services Coordination
--- OUTSIDE RECORDS SUMMARY | 2025-04-03 09:36 | XMS_ITS | Encounter Summary ---
Author Organization [employer] Address [address] [place] [address] [address] [place] [address] Care Team Providers Care Maintenance Worker Swimming Pool Name Role Phone Porfirio Goodman MD Primary Care Prov ider Luli Sosa RN Unavailable [phone] Marino Wiseman Unavailable Jeanine Montague Unavailable Encounter Details Date Type Department Care Team (Latest Contact Info) Description 09/09/2021 Abstract [facility] CONVERSIONS Dental, Provider, DDS Social History Tobacco [...] filedocumented in this encounter Care Teams Maintenance Worker Swimming Pool Relationship Specialty Start Date End Date Porfirio Goodman MD [address] [place], [place] [phone] PCP - General Internal Medicine 12/05/19 Luli Sosa RN 505 [place], [place] [phone] Registered Nurse Family Medicine 12/12/24 12/12/24 Marino Wiseman 12/12/24 12/12/24 Jeanine Montague 02/23/25 Amber Mittal Skip MinerMechanical Engineering Director 04/20/24 documented as of this encounter
--- OUTSIDE RECORDS SUMMARY | 2025-04-03 09:36 | XMS_ITS | Encounter Summary ---
Author Organization [employer] Address [address] [facility] 7 [place] [address] Care Team Providers Care Fish Net Maker Name Role Phone Porfirio Goodman MD Primary Care Prov ider Luli Sosa RN Unavailable [phone] Marino Wiseman Unavailable Jeanine Montague Unavailable Reason for Visit * Reason Onset Date Comments Med Refill 11/09/2024 Encounter Details Date Type Department Care Team (Late st Contact Info) Description 11/09/2024 Refill [facility] CHC MED & PEDS [address] [place], [place] [phone] Porfirio Goodman MD [address] [place], [place] [phone] Social History Tobacco Use Types Packs/Day Years [...] on filedocumented in this encounter Care Teams Fish Net Maker Relationship Specialty Start Date End Date Porfirio Goodman MD [address] [place] [address] PCP - General Internal Medicine 12/05/19 Luli Sosa RN 505 [place] [address] Registered Nurse Family Medicine 12/12/24 12/12/24 Marino Wiseman 12/12/24 12/12/24 Jeanine Montague 02/23/25 Amber Mittal Bakery TechnicianWant Ad Clerk 04/20/24 documented as of this encounter
--- OUTSIDE RECORDS SUMMARY | 2025-04-03 09:36 | XMS_ITS | Encounter Summary ---
Author Organization [employer] Address 75 [facility] 7 [place] [address] Care Team Providers Care Digital Asset Specialist Name Role Phone Porfirio Goodman MD Primary Care Prov ider Luli Sosa RN Unavailable [phone] Marino Wiseman Unavailable Jeanine Montague Unavailable Encounter Details Date Type Department Care Team (Late st Contact Info) Description 08/18/2024 Orders Only [facility] CHC MED & PEDS 505 [place], [place] [phone] Porfirio Goodman MD 505 [place], [place] [phone] Social History Tobacco Use Types Packs/Day Years [...] on filedocumented in this encounter Care Teams Digital Asset Specialist Relationship Specialty Start Date End Date Porfirio Goodman MD 505 [place] [address] PCP - General Internal Medicine 12/05/19 Luli Sosa RN 505 [place] [address] Registered Nurse Family Medicine 12/12/24 12/12/24 Marino Wiseman 12/12/24 12/12/24 Jeanine Montague 02/23/25 Amber Mittal Figure Refinisher And RepairerSock Folder 04/20/24 documented as of this encounter
--- OUTSIDE RECORDS SUMMARY | 2025-04-03 09:36 | XMS_ITS | Encounter Summary ---
Author Organization [employer] Address 75 [facility] 7 [place] [address] Care Team Providers Care Government Operations Consultant Name Role Phone Porfirio Goodman MD Primary Care Prov ider Jeanine Montague Unavailable Reason for Visit * Reason Comments Med Refill Encounter Details Date Type Department Care Team ([facility] st Contact Info) Description 02/24/2025 Refill [facility] CHC MED & PEDS [address] [place], [place] [phone] Porfirio Goodman MD 505 [place] [address] Social History Tobacco Use Types Packs/Day Years [...] on filedocumented in this encounter Care Teams Government Operations Consultant Relationship Specialty Start Date End Date BaerPorfirio Escobar MD [address] [place] [address] PCP - General Internal Medicine 12/05/19 Jeanine Montague 02/23/25 Amber Mittal Bench Tool MakerClarification Operator 04/20/24 documented as of this encounter
--- OUTSIDE RECORDS SUMMARY | 2025-04-03 09:36 | XMS_ITS | Encounter Summary ---
Author Organization [employer] Address [address] [place] [address] [address] [address] Care Team Providers Care Enterprise Infrastructure Architect Name Role Phone Porfirio Goodman MD Primary Care Prov ider Luli Sosa RN Unavailable [phone] Marino Wiseman Unavailable Jeanine Montague Unavailable Reason for Visit * Reason Onset Date Comments Nurse Triage 04/27/2023 Encounter Details Date Type Department Care Team (Late st Contact Info) Description 04/27/2023 Telephone [facility] CHC MED & PEDS 505 [place], [place] [phone] Porfirio Goodman MD 505 [place], [place] [phone] Nurse Triage Social History Tobacco Use Types [...] is associated with that now. ASK apt [facility] 140pm 04/27/23 . Pt agrees with disposition [...] like being stabbed. Please contact pt at [phone] documented in this encounter Plan of Treatment Not on file documented as of this encounter Visit Diagnoses Not on filedocumented in this encounter Care Teams Enterprise Infrastructure Architect Relationship Specialty Start Date End Date Porfirio Goodman MD [address] [place] [address] PCP - General Internal Medicine 12/05/19 Luli Sosa RN [address] [place] [address] Registered Nurse Family Medicine 12/12/24 12/12/24 Marino Wiseman 12/12/24 12/12/24 Jeanine Montague 02/23/25 Amber Mittal Planning ConsultantMiddle School French Teacher 04/20/24 documented as of this encounter
--- OUTSIDE RECORDS SUMMARY | 2025-04-03 09:36 | XMS_ITS | Encounter Summary ---
Author Organization [employer] Address [address] [facility] [place] [address] Care Team Providers Care Roll Contour Grinder Name Role Phone Porfirio Goodman MD Primary Care Prov ider Luli Sosa RN Unavailable [phone] Marino Wiseman Unavailable Jeanine Montague Unavailable Reason for Visit * Reason Comments Med Refill Encounter Details Date Type Department Care Team ([facility] Contact Info) Description 04/27/2024 Refill [facility] CHC MED & PEDS 505 [place], [place] [phone] Porfirio Goodman MD 505 [place], [place] [phone] Social History Tobacco Use Types Packs/Day Years [...] on filedocumented in this encounter Care Teams Roll Contour Grinder Relationship Specialty Start Date End Date Porfirio Goodman MD 505 [place] [address] PCP - General Internal Medicine 12/05/19 Luli Sosa RN 505 [place] [address] Registered Nurse Family Medicine 12/12/24 12/12/24 Marino Wiseamn 12/12/24 12/12/24 Jeanine Montague 02/23/25 Amber Mittal Bull RiveterTelephone Plant Power Operator 04/20/24 documented as of this encounter
--- OUTSIDE RECORDS SUMMARY | 2025-04-03 09:36 | XMS_ITS | Encounter Summary ---
Author Organization [facility] Address [address] [place] [address] Phone Care Team Providers Care Juice Mixer Name Role Phone Porfirio Goodman MD Primary Care Prov ider Encounter Details Date Type Department Care Team (Late st Contact Info) Description 11/01/2021 Procedure Pass [facility], [address] [address] Social History Tobacco Use Types Packs/Day Years [...] on filedocumented in this encounter Care Teams Juice Mixer Relationship Specialty Start Date End Date Porfirio Goodman MD 505 [place] [address] PCP - General Internal Medicine 09/18/21 documented as of this encounter Additional Source Comments The information contained in this document represents components of the legal health record. It is not the complete legal health record.[facility]
--- OUTSIDE RECORDS SUMMARY | 2025-04-03 09:36 | XMS_ITS | Encounter Summary ---
Author Organization [employer] Address [address] [facility] [address] 7[address] [place] [address] Care Team Providers Care Telecommunications Field Technician Name Role Phone Porfirio Goodman MD Primary Care Prov ider Luli Sosa RN Unavailable [phone] Marino Wiseman Unavailable Jeanine Montague Unavailable Reason for Visit * Reason Onset Date Comments Med Refill 01/11/2024 Encounter Details Date Type Department Care Team (Late st Contact Info) Description 01/11/2024 Refill [facility] [address] [place] [phone] Doug Vargas MD [address] [place], [place] [phone] Abdominal wall pain Social History Tobacco Use [...] site documented in this encounter Care Teams Telecommunications Field Technician Relationship Specialty Start Date End Date Porfirio Goodman MD 505 [place] [address] PCP - General Internal Medicine 12/05/19 Luli Sosa RN [address] [place] [address] Registered Nurse Family Medicine 12/12/24 12/12/24 Marino Wiseman 12/12/24 12/12/24 Jeanine Montague 02/23/25 Amber Mittal University TeacherHeating Element Winder 04/20/24 documented as of this encounter
--- OUTSIDE RECORDS SUMMARY | 2025-04-03 09:36 | XMS_ITS | Encounter Summary ---
Author Organization [facility] Address [address] [place] [address] Phone Care Team Providers Care Construction Administrative Assistant Name Role Phone Pcp, Unknown Primary Care Provider Unavailabl e Porfirio Goodman MD Primary Care Prov ider Encounter Details Date Type Department Care Team (Late st Contact Info) Description 05/16/2021 Procedure Pass [facility] [address] [place] [address] Social History Tobacco Use Types Packs/Day Years [...] on filedocumented in this encounter Care Teams Construction Administrative Assistant Relationship Specialty Start Date End Date Pcp, Unknown PCP - General 05/13/21 09/17/21 Porfirio Goodman MD [address] [place] [address] PCP - General Internal Medicine 09/18/21 documented as of this encounter Additional Source Comments The information contained in this document represents components of the legal health record. It is not the complete legal health record.[facility]
--- OUTSIDE RECORDS SUMMARY | 2025-04-03 09:37 | XMS_ITS | Encounter Summary ---
Author Organization [employer] Address [address] [place] [address] Care Team Providers Care Aquatic Scientist Name Role Phone Porfirio Goodman MD Primary Care Prov ider Luli Sosa RN Unavailable [phone] Marino Wiseman Unavailable Jeanine Montague Unavailable Reason for Visit * Reason Comments Med Refill Encounter Details Date Type Department Care Team ([facility] st Contact Info) Description 03/17/2023 Refill [facility] CHC MED & PEDS 505 [place], [place] [phone] Porfirio Goodman MD [address] [place], [place] [phone] Post-nasal drip Social History Tobacco Use Types [...] drip documented in this encounter Care Teams Aquatic Scientist Relationship Specialty Start Date End Date Porfirio Goodman MD 505 [place] [address] PCP - General Internal Medicine 12/05/19 Luli Sosa RN 505 [place] [address] Registered Nurse Family Medicine 12/12/24 12/12/24 Marino Wiseman 12/12/24 12/12/24 Jeanine Montague 02/23/25 Amber Mittal Rn NurserySenior Director Marketing 04/20/24 documented as of this encounter
--- OUTSIDE RECORDS SUMMARY | 2025-04-03 09:37 | XMS_ITS | Encounter Summary ---
Author Organization [employer] Address [address] [facility] [address] 7[address] [place] [address] Care Team Providers Care Housekeeper Manager Name Role Phone Porfirio Goodman MD Primary Care Prov ider Luli Sosa RN Unavailable [phone] Marino Wiseman Unavailable Jeanine Montague Unavailable Encounter Details Date Type Department Care Team (Late st Contact Info) Description 09/16/2024 Telephone [facility] MEDICINE [address] [place] [address] Porfirio Goodman MD [address] [place] [address] Social History Tobacco Use Types Packs/Day Years Used Date Smoking Tobacco: Never Passive Smoke Exposure: Never Smokeless Tobacco: Never Alcohol Use Standard Drinks/Week Comments Never 0 (1 standard drink = 0.6 oz pur e alcohol) Housing Stability Answer Date Recorded What is your housing situation today? I have mikeradah vyas 02/01/[address] you [...] on filedocumented in this encounter Care Teams Housekeeper Manager Relationship Specialty Start Date End Date Porfirio Goodman MD [address] [place] [address] PCP - General Internal Medicine 12/05/19 Luli Sosa RN 505 [place] [address] Registered Nurse Family Medicine 12/12/24 12/12/24 Marino Wiseman 12/12/24 12/12/24 Jeanine Montague 02/23/25 Amber Mittal Concrete Floor InstallerCoat Operator Insulator 04/20/24 documented as of this encounter
== END 2025-04-03 09:25 | disposition home or self-care (01) ==
LOC: HO.HNS 08:36
PROVIDERS: PCP Internal Medicine; Visit Provider Physician Assistant
DX: M54.9 Dorsalgia, unspecified (principal)
CPT/HCPCS: 99213

== ENCOUNTER → 2025-04-03 08:35 | Outpatient (BNVA) | payer MEDICAID, SELFPAY | PROVIDERS: PCP Internal Medicine; Visit Provider Physician Assistant | DX: M51.360 Other intervertebral disc degeneration, lumbar region with discogenic back pain only (principal) | CPT/HCPCS: 99212 ==

== ENCOUNTER 2025-04-17 11:43 | Emergency (ER) | payer MEDICAID, SELFPAY ==
--- NOTE | ~2025-04-17 | XR_ITS ---
EXAMINATION: XR KNEE, RIGHT CLINICAL INFORMATION: atraumatic R knee pain COMPARISON: None available. TECHNIQUE: Four views of the right knee. FINDINGS: No fracture, dislocation, or suspicious bone lesion. Normal bone mineralization. Normal alignment. Minimal medial and patellofemoral compartment joint space narrowing. No significant joint effusion. Soft tissues appear normal. XR/XR knee RT 4V IMPRESSION: 1. No acute bony abnormalities of the right knee. No joint effusion. 2. 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 Electronically signed by: Otilio Campos MD 04/17/2025 12:32 PM EDT
[2025-04-17 11:49] VITALS: BP 134/81; PULSE 87; RESP 16; TEMP 36.1; O2SAT 99; BMI 36.8
--- NOTE | 2025-04-17 11:53 | ED.GENADULT ---
HPI - General Adult General Chief complaint: Extremity Injury, Lower Stated complaint: R knee pain Related Data Home Medications ?Medication ?Instructions ?Recorded ?Confirmed cetirizine 10 mg capsule (All Day 10 mg PO DAILY PRN Allergy Symptoms 11/14/20 02/28/25 Allergy (cetirizine)) cholecalciferol (vitamin D3) 125 125 mcg PO DAILY 11/14/20 02/28/25 mcg (5,000 unit) capsule vitamin B complex (B 1 tab PO DAILY 11/14/20 02/28/25 Complex-Vitamin B12 tablet) albuterol sulfate 90 mcg/actuation 2 puff PO Q4-6H PRN Shortness Of 01/14/22 02/28/25 aerosol inhaler (ProAir HFA) Breath Or Wheezing omeprazole 20 mg capsule,delayed 20 mg PO DAILY 01/14/22 02/28/25 release amlodipine 10 mg tablet 10 mg PO DAILY 12/04/22 02/28/25 carvedilol 3.125 mg tablet 3.125 mg PO BID 12/04/22 02/28/25 fluticasone propionate 110 2 puff inhalation 12/04/22 02/28/25 mcg/actuation HFA aerosol inhaler (Flovent HFA) fluticasone propionate 50 1 - 2 spray intranasal QAM 12/04/22 02/28/25 mcg/actuation nasal spray,suspension polyethylene glycol 3350 17 17 g PO DAILY PRN Constipation 12/04/22 02/28/25 gram/dose oral powder (Miralax) iron dextran IV 12/23/22 02/28/25 diazepam 5 mg tablet (Valium) 5 mg PO TID PRN Anxiety 09/02/23 02/28/25 methocarbamol 750 mg tablet 750 mg PO QID 09/02/23 02/28/25 tirzepatide (weight loss) 2.5 10 mg subcut QWEEK 02/28/25 02/28/25 mg/0.5 mL subcutaneous pen injector (Zepbound) Previous Rx's ?Medication ?Instructions ?Recorded dicyclomine 20 mg tablet 20 mg PO QID PRN abdominal pain 06/16/20 #20 tabs docusate sodium 100 mg capsule 100 mg PO BID PRN Constipation #14 09/03/21 (Colace) caps ibuprofen 600 mg tablet 600 mg PO TID PRN pain #14 tabs 02/13/22 bisacodyl 5 mg tablet,delayed 10 mg (2 x 5 mg) PO BEDTIME #14 11/17/22 release tabs hydromorphone 2 mg tablet 1 mg (1/2 x 2 mg) PO Q12H 7 days 09/28/23 (Dilaudid) #7 tabs meloxicam 15 mg tablet 15 mg PO DAILY #30 tabs 10/12/23 tramadol 50 mg tablet 50 mg PO Q12H PRN pain #30 tabs 11/05/23 nitrofurantoin 100 mg PO Q12H 7 days #14 caps 03/07/24 monohydrate/macrocrystals 100 mg capsule (Macrobid) acetaminophen 650 mg 650 mg PO Q8H PRN pain #30 tabs 06/29/24 tablet,extended release (Tylenol 8 Hour) oxycodone 5 mg tablet 5 mg PO Q6H PRN severe pain (scale 06/29/24 score 7-10) #7 tabs cephalexin 500 mg capsule 500 mg PO QID 5 days #20 caps 03/29/25 Allergies Allergy/AdvReac Type Severity Reaction Status Date / Time amoxicillin Allergy Severe DIFFICULTY Verified 04/17/25 11:50 BREATHING clavulanic acid Allergy Severe DIFFICULTY Verified 04/17/25 11:50 BREATHNG nabumetone Allergy Severe Depression Verified 04/17/25 11:50 Penicillins Allergy Severe Shortness Verified 04/17/25 11:50 of Breath, itching sulfamethoxazole Allergy Severe DIFFICULTY Verified 04/17/25 11:50 BREATHING, anaphylaxis trimethoprim Allergy Severe DIFFICULTY Verified 04/17/25 11:50 BREATHING, anaphylaxis azithromycin Allergy Intermediate DIFFICULTY Verified 04/17/25 11:50 BREATHING hydrocodone Allergy Intermediate DIFFICULTY Verified 04/17/25 11:50 BREATHING levofloxacin Allergy Intermediate AGITATION-CAN Verified 04/17/25 11:50 TAKE IV, BUT NOT PO ondansetron (From Zofran) Allergy Intermediate r/t Verified 04/17/25 11:50 prolonged QT rizatriptan (RIZATRIPTAN) Allergy Intermediate HIVES Verified 04/17/25 11:50 diphenhydramine (From AdvReac Unknown told to Verified 04/17/25 11:50 BENADRYL) avoid From REGLAN Allergy Severe DYSPHORIA Uncoded 02/11/24 10:38 PMFSH Past Medical History Medical History Hx MRSA infection (~2019) Wears glasses Wears hearing aid in both ears Leukocytosis Ear piercing [place] DELIA (obstructive sleep apnea) Personal history of COVID-19 Renal cyst Anemia Prolonged QT interval Murmur, cardiac Thyroid condition Essential hypertension Sacroiliac joint dysfunction of right side Asthma PCOS (polycystic ovarian syndrome) Surgical History Hx of arthroscopy of left knee (09/04/23) S/P fusion of sacroiliac joint (12/23/22) History of S/P left knee arthroscopy Status post arthroscopy of shoulder H/O gastric sleeve History of ankle surgery History of laparoscopic partial gastrectomy Social History Social History Household Members: Spouse, Family and Children Housing: House Are you a primary landcare officer to a significant other at home: Yes (5 year old daughter) Do you presently have visiting nurse or other home services: No Alcohol intake: former Patient Tobacco Use Status: Never used Tobacco e-Cigarette/Vaping Use: Never Used Advance Directives: No Advance Directives Information Provided: No Physical Exam ED Vital Signs: Vital Signs - 24 hr 04/17/25 11:49 Temperature 96.9 F Pulse Rate 87 Respiratory Rate 16 Blood Pressure 134/81 Pulse Oximetry 99 Oxygen Delivery Method Room Air BMI result Body Mass Index 36.8 Course Course Course Narrative: This is a Rapid Medical Examination (RME) performed by Monico Her PA-C in triage. Full HPI, ROS, assessment and treatment plan per primary provider in the Main ED. Hx: 50 yo F here for eval of right knee pain x3 days. pain w/ ambulation, flexion, lifting the leg. seen at with negative xrs - sent home w/ conservative management. states im not eating, not sleeping, due to the pain . taking tylenol/motrin, methocarbamol without improvement. Plan: xrs Reevaluation(s) Reevaluation #1: Patient left the emergency department before myself or any of the other clinicians could review or explain physical exam findings, test results, need or lack there of for additional testing, treatment options, or a treatment plan. Discharge Plan Discharge Clinical Impression: Knee pain Patient Disposition: Left W/O Completing Treatment Prescriptions: No Action bisacodyl 5 mg tablet,delayed release (DR/EC) 10 mg PO BEDTIME Qty: 14 0RF hydromorphone [Dilaudid] 2 mg tablet 1 mg PO Q12H 7 Days Qty: 7 0RF Rx Instructions: Partial Fill upon patient request. meloxicam 15 mg tablet 15 mg PO DAILY Qty: 30 0RF tramadol 50 mg tablet 50 mg PO Q12H PRN (Reason: pain) Qty: 30 0RF dicyclomine 20 mg tablet 20 mg PO QID PRN (Reason: abdominal pain) Qty: 20 0RF docusate sodium [Colace] 100 mg capsule 100 mg PO BID PRN (Reason: Constipation) Qty: 14 0RF ibuprofen 600 mg tablet 600 mg PO TID PRN (Reason: pain) Qty: 14 0RF diazepam [Valium] 5 mg tablet 5 mg PO TID PRN (Reason: Anxiety) Rx Instructions: partial fill is okay methocarbamol 750 mg tablet 750 mg PO QID nitrofurantoin monohyd/m-cryst [Macrobid] 100 mg capsule 100 mg PO Q12H 7 Days Qty: 14 0RF Rx Instructions: must administer with a meal/food polyethylene glycol 3350 [Miralax] 17 gram/dose powder 17 g PO DAILY PRN (Reason: Constipation) carvedilol 3.125 mg tablet 3.125 mg PO BID amlodipine 10 mg tablet 10 mg PO DAILY fluticasone propionate 50 mcg/actuation spray,suspension 1 - 2 spray intranasal QAM fluticasone propionate [Flovent HFA] 110 mcg/actuation HFA aerosol inhaler 2 puff INHALATION iron dextran IV Patient Comments: last dose- last year acetaminophen [Tylenol 8 Hour] 650 mg tablet extended release 650 mg PO Q8H PRN (Reason: pain) Qty: 30 0RF oxycodone 5 mg tablet 5 mg PO Q6H PRN (Reason: severe pain (scale score 7-10)) Qty: 7 0RF Rx Instructions: Partial Fill upon patient request. cephalexin 500 mg capsule 500 mg PO QID 5 Days Qty: 20 0RF vitamin B complex [B Complex-Vitamin B12] Tablet 1 tab PO DAILY cholecalciferol (vitamin D3) 125 mcg (5,000 unit) capsule 125 mcg PO DAILY All Day Allergy (cetirizine) 10 mg capsule 10 mg PO DAILY PRN (Reason: Allergy Symptoms) albuterol sulfate [ProAir HFA] 90 mcg/actuation HFA aerosol inhaler 2 puff PO Q4-6H PRN (Reason: Shortness Of Breath Or Wheezing) omeprazole 20 mg capsule,delayed release(DR/EC) 20 mg PO DAILY Zepbound 2.5 mg/0.5 mL pen injector 10 mg subcut QWEEK Rx Instructions: for 4 weeks Discharge Date/Time: 04/17/25 15:11
--- OUTSIDE RECORDS SUMMARY | 2025-04-17 17:01 | XMS_ITS ---
Encounter Summary Created on: April 17, 2025 Kyle Pool
--- OUTSIDE RECORDS SUMMARY | 2025-04-17 17:02 | XMS_ITS | Encounter Summary ---
Demographics Address [address] [place], [place] [phone] Work Phone Mobile Phone Home Phone Email Address Preferred Language en Marital Status Voodoo Affiliation Unknown Race White Ethnic Group Unknown
== END 2025-04-17 15:11 | disposition left against medical advice (07) ==
PROVIDERS: Emergency Provider Emergency Medicine; PCP Internal Medicine
DX: M25.561 Pain in right knee (principal); G47.33 Obstructive sleep apnea (adult) (pediatric); Z53.21 Procedure and treatment not carried out due to patient leaving prior to being seen by health care provider
CPT/HCPCS: 73564; 99281; 99283

== ENCOUNTER → 2025-04-17 11:55 | Outpatient (BNV) | payer MEDICAID, SELFPAY | PROVIDERS: PCP Internal Medicine; Visit Provider Radiology Diagnostic Radiology | DX: M25.561 Pain in right knee (principal) | CPT/HCPCS: 73564 ==

== ENCOUNTER 2025-06-30 12:27 | Emergency (ER) | payer MEDICAID, SELFPAY ==
--- NOTE | ~2025-06-30 | XR_ITS ---
EXAMINATION: XR ELBOW 3 VIEWS RIGHT HISTORY: pain, injury COMPARISON: There are no prior studies available for comparison. FINDINGS: Three views of the right elbow are submitted. Osseous mineralization is normal. There is no fracture or dislocation. The joint spaces are preserved. The soft tissues are unremarkable. There is no joint effusion. XR/XR elbow RT min 3V IMPRESSION: Unremarkable examination of the right elbow. Electronically signed by: Martell Cardoza MD 06/30/2025 12:53 PM EVELIA
[2025-06-30 12:39] VITALS: BP 139/79; PULSE 78; RESP 18; TEMP 36.2; O2SAT 98; BMI 36.7
--- NOTE | 2025-06-30 12:39 | ED_ITS ---
HPI - General Adult General Chief complaint: Extremity Injury, Upper Stated complaint: Injury Time Seen by Provider: 06/30/25 13:02 Source: patient Mode of arrival: ambulatory Limitations: no limitations History of Present Illness ED Provider: Amber De Dios PA-C HPI narrative: Patient is a 50 year old assigned female at with a history of PCOS, asthma, and gastric sleeve presenting to the emergency department today with right elbow pain. Patient states that on 06/27/2025 she was shoveling snow and began to have right elbow pain. Patient states that the pain has persisted. Patient denies any falls or other trauma. Patient denies any other complaints at this time. Onset (ago): day(s) Relieving factors: none Exacerbating factors: movement Associated symptoms: denies other symptoms Treatments prior to arrival: none Related Data Home Medications ?Medication ?Instructions ?Recorded ?Confirmed cetirizine 10 mg capsule (All Day 10 mg PO DAILY PRN A llergy Symptoms 11/14/20 02/28/25 Allergy (cetirizine)) cholecalciferol (vitamin D3) 125 125 mcg PO DAILY 10/2602/28/25 mcg (5,000 unit) capsule vitamin B complex (B 1 tab PO DAILY 11/14/2012/18 Complex-Vitamin B12 tablet) albuterol sulfate 90 mcg/actuation 2 puff PO Q4-6H PRN Shortness Of 01/14/22 02/28/25 aerosol inhaler (ProAir HFA) Breath Or Wheezing omeprazole 20 mg capsule,delayed 20 mg PO DAILY 02/28/25 release amlodipine 10 mg tablet 10 mg PO DAILY 12/04/2212/18 carvedilol 3.125 mg tablet 3.125 mg PO BID 12/04/22 fluticasone propionate 110 2 puff inhalation 12/04/22 02/28/25 mcg/actuation HFA aerosol inhaler (Flovent HFA) fluticasone propionate 50 1 - 2 spray intranasal QAM 0 12/04/22 02/28/25 mcg/actuation nasal spray,suspension polyethylene glycol 3350 17 17 g PO DAILY PRN Constipa tion 12/04/22 02/28/25 gram/dose oral powder (Miralax) iron dextran IV 12/23/22 02/28/25 diazepam 5 mg tablet (Valium) 5 mg PO TID PRN Anxiety 09/02/23 02/28/25 methocarbamol 750 mg tablet 750 mg PO QID 09/02/2312/18 tirzepatide (weight loss) 2.5 10 mg subcut QWEEK 02/2802/28/25 mg/0.5 mL subcutaneous pen injector (Zepbound) Previous Rx's ?Medication ?Instructions ?Recorded dicyclomine 20 mg tablet 20 mg PO QID PRN abdominal pain 06/16/20 #20 tabs docusate sodium 100 mg capsule 100 mg PO BID PRN Const ipation #14 09/03/21 (Colace) caps ibuprofen 600 mg tablet 600 mg PO TID PRN pain #14 t abs 02/13/22 bisacodyl 5 mg tablet,delayed 10 mg (2 x 5 mg) PO BEDT JOHNNA #14 11/17/22 release tabs hydromorphone 2 mg tablet 1 mg (1/2 x 2 mg) PO Q12H 7 days 09/28/23 (Dilaudid) #7 tabs meloxicam 15 mg tablet 15 mg PO DAILY #30 tabs 09/24 03/19 tramadol 50 mg tablet 50 mg PO Q12H PRN pain #30 t abs 11/05/23 nitrofurantoin 100 mg PO Q12H 7 days #14 ca ps 03/07/24 monohydrate/macrocrystals 100 mg capsule (Macrobid) acetaminophen 650 mg 650 mg PO Q8H PRN pain #30 t abs 06/29/24 tablet,extended release (Tylenol 8 Hour) oxycodone 5 mg tablet 5 mg PO Q6H PRN severe pain (scale 06/29/24 score 7-10) #7 tabs cephalexin 500 mg capsule 500 mg PO QID 5 days #20 cap s 03/29/25 Allergies Allergy/AdvReac Type Severity Reaction Status Date / Time amoxicillin Allergy Severe DIFFICULTY Verified 06/30/25 12:42 BREATHING clavulanic acid Allergy Severe DIFFICULTY Verified 06/30/25 12:42 BREATHNG nabumetone Allergy Severe Depression Verified 06/30/25 12:42 Penicillins Allergy Severe Shortness Verified 06/30/25 12:42 of Breath, itching sulfamethoxazole Allergy Severe DIFFICULTY Verified 06/30/25 12:42 BREATHING, anaphylaxis trimethoprim Allergy Severe DIFFICULTY Verified 06/30/25 12:42 BREATHING, anaphylaxis azithromycin Allergy Intermediate DIFFICULTY Verified 06/30/25 12:42 BREATHING hydrocodone Allergy Intermediate DIFFICULTY Verified 06/30/25 12:42 BREATHING levofloxacin Allergy Intermediate AGITATION-CAN Verified 06/30/25 12:42 TAKE IV, BUT NOT PO ondansetron (From Zofran) Allergy Intermediate r/t Verified 06/30/25 12:42 prolonged QT rizatriptan (RIZATRIPTAN) Allergy Intermediate HIVES Verified 06/30/25 12:42 diphenhydramine (From AdvReac Unknown told to Verified 06/30/25 12:42 BENADRYL) avoid From REGLAN Allergy Severe DYSPHORIA Uncoded 06/30/25 12:42 Review of Systems Constitutional: Constitutional: Reports as per HPI Eyes: Eyes: Reports as per HPI ENT: Reports as per HPI Cardiovascular: Cardiovascular: Reports as per HPI Respiratory: Respiratory: Reports as per HPI Gastrointestinal: Gastrointestinal: Reports as per HPI Genitourinary: Genitourinary: Reports as per HPI Musculoskeletal: Musculoskeletal: Reports as per HPI Integumentary/Breasts: Skin/Breast: Reports as per HPI Neurologic: Reports as per HPI Psychiatric: Psychiatric: Reports as per HPI Endocrine: Endocrine: Reports as per HPI Hematologic/Lymphatic: Hematologic/Lymphatic: Reports as per HPI Allergic/Immunologic: Allergic/Immunologic: Reports as per HPI PMFSH Past Medical History Attestation statement: The following information was validated with the patient. Source: old records reviewed and nursing notes reviewed Medical History Hx MRSA infection (~2019) Wears glasses Wears hearing aid in both ears Leukocytosis Ear piercing ALMA DELIA (obstructive sleep apnea) Personal history of COVID-19 Renal cyst Anemia Prolonged QT interval Murmur, cardiac Thyroid condition Essential hypertension Sacroiliac joint dysfunction of right side Asthma PCOS (polycystic ovarian syndrome) Surgical History Hx of arthroscopy of left knee (09/04/23) S/P fusion of sacroiliac joint (12/23/22) History of S/P left knee arthroscopy Status post arthroscopy of shoulder H/O gastric sleeve History of ankle surgery History of laparoscopic partial gastrectomy Social History Social History Household Members: Spouse, Family and Children Housing: House Are you a primary post anesthesia care unit nurse to a significant other at home: Yes (5 year old daughter) Do you presently have visiting nurse or other home services: No Alcohol intake: former Patient Tobacco Use Status: Never used Tobacco e-Cigarette/Vaping Use: Never Used Advance Directives: No Advance Directives Information Provided: No Do you have a plan to hurt others: No Plan Physical Exam ED Vital Signs: Vital Signs - 24 hr 06/30/25 12:39 06/30/25 13:59 Temperature 97.1 F 97.1 F Pulse Rate 78 78 Respiratory Rate 18 18 Blood Pressure 139/79 139/79 Pulse Oximetry 98 98 Oxygen Delivery Method Room Air Room Air BMI result Body Mass Index 36.7 Extrem Other: pain with right elbow ROM Course Course Course Narrative: Rapid medical examination performed in triage by Amber De Dios PA-C: Patient is a 50 year old assigned female at presenting to the emergency department with right forearm and elbow pain. Detailed physical exam and review of systems are deferred to the client services administrator. Imaging ordered. Patient placed back in the waiting room pending room availability and results. Medical Decision Making Medical Decision Making MDM Narrative: Patient is a 50 year old assigned female at with a history of PCOS, asthma, and gastric sleeve presenting to the emergency department today with right elbow pain. Patient's physical exam was as noted in the physical exam portion of this note. Patient's right elbow x-ray showed no acute process. Patient's clinical presentation is most consistent with a right elbow sprain / strain. I explained my physical exam findings as well as all test results to the patient. I answered all questions asked by the patient. I stressed the importance of the patient taking her medication as directed (either prescribed or as the over the counter packaging recommends). I stressed the importance of the patient following up with her primary care provider. I stressed the importance of the patient returning to the emergency department immediately if her symptoms were to worsen or if she were to develop any dizziness, shortness of breath, difficulty breathing, chest pain, blurry vision, loss of vision, nausea, vomiting, abdominal pain, fever, chills, back pain, or any other complaints. Patient verbalized agreement and understanding with this treatment plan and discharge. Differential Diagnosis Differential Diagnoses: The differential diagnosis associated with the presentation includes Right elbow sprain Right elbow strain Right elbow fracture Right epicondylitis Admission/Observation Consideration of admission/observation: Escalation of care including admission/observation considered Patient would have been admitted to the hospital had her work up had any findings where hospital admission was appropriate and her clinical presentation warranted hospital admission. Independent Interpretation I performed an independent interpretation of an: Plain X-Ray Interpretation: My interpretation is in agreement with the radiologist's impression of this imaging study as written below. Reason for Exam: pain, injury EXAMINATION: XR ELBOW 3 VIEWS RIGHT HISTORY: pain, injury COMPARISON: There are no prior studies available for comparison. FINDINGS: Three views of the right elbow are submitted. Osseous mineralization is normal. There is no fracture or dislocation. The joint spaces are preserved. The soft tissues are unremarkable. There is no joint effusion. XR/XR elbow RT min 3V IMPRESSION: Unremarkable examination of the right elbow. Electronically signed by: Martell Cardoza MD 06/30/2025 12:53 PM [facility] Dictated By: Martell Cardoza MD Signed By: Electronically signed by Martell Cardoza MD 06/30/25 1253 Radiology Impression Discussion of test interpretation with radiology: I have reviewed the radiologist's reading. Discharge Plan Discharge Clinical Impression: Elbow strain Qualifiers: Encounter type: initial encounter Laterality: right Qualified Code(s): S56.911A - Strain of unspecified muscles, fascia and tendons at forearm level, right arm, initial encounter Patient Disposition: Home, Self-Care Instructions: Elbow Sprain (ED) Additional Instructions: Your right elbow x-ray was negative for any yina process (break / fracture). 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 IF you are prescribed home medications and/or you are taking over the counter medications at home - it is very important you continue to do so as prescribed / directed unless told otherwise by a healthcare provider. Follow up with your primary care provider. Do your best to stay well hydrated and rest. Return to the emergency department immediately if your symptoms worsen or if you develop any numbness, tingling, dizziness, shortness of breath, difficulty breathing, chest pain, blurry vision, loss of vision, nausea, vomiting, abdominal pain, fever, chills, back pain, or any other complaints. If you do not have a primary care provider - call any of the below numbers to establish and follow up with a primary care provider. [facility] Primary Care ([place]) [phone] [place] [address], [address] [facility] Primary Care ([address] [place]) [phone] [place] [address], [address] [facility], [address] [facility] Primary Care ([address] [place]) [phone] [place] [address], [address] [facility], [address] [facility] Primary Care ([place]) [phone] [place] [address] 2 [facility], [address] [facility] Family Medicine [phone] [address] [facility] [place], [address] Please see the information below about our Patient Portal. If you are not yet enrolled in the [facility] Patient Portal, you will receive an enrollment email invitation following your visit to any [facility] setting. You may also self-enroll in the Patient Portal by visiting our website: [email or web address] The following information is required to access the Patient Portal: - Your [facility] Medical Record Number - Your personal home email address (must match what is in your electronic medical record, Registration staff can assist with this) - Name - Date of Capabilities of the Patient Portal: - Message some providers - View upcoming appointments - Access your health summary, medical history, and visit history - View current conditions and allergies - View procedure and lab results - View your medications, including guidelines, side effects, and precautions - Complete pre-appointment questionnaires requested by your provider - Ready summary reports of your office visits and procedures To access the Patient Portal Mobile Heide, follow these directions: - Search makerist in the Heide Store or Google Play Store - Download the Heide - Search for [facility] - Enter your login/password Prescriptions: No Action bisacodyl 5 mg tablet,delayed release (DR/EC) 10 mg PO BEDTIME Qty: 14 0RF hydromorphone [Dilaudid] 2 mg tablet 1 mg PO Q12H 7 Days Qty: 7 0RF Rx Instructions: Partial Fill upon patient request. meloxicam 15 mg tablet 15 mg PO DAILY Qty: 30 0RF tramadol 50 mg tablet 50 mg PO Q12H PRN (Reason: pain) Qty: 30 0RF dicyclomine 20 mg tablet 20 mg PO QID PRN (Reason: abdominal pain) Qty: 20 0RF docusate sodium [Colace] 100 mg capsule 100 mg PO BID PRN (Reason: Constipation) Qty: 14 0RF ibuprofen 600 mg tablet 600 mg PO TID PRN (Reason: pain) Qty: 14 0RF diazepam [Valium] 5 mg tablet 5 mg PO TID PRN (Reason: Anxiety) Rx Instructions: partial fill is okay methocarbamol 750 mg tablet 750 mg PO QID nitrofurantoin monohyd/m-cryst [Macrobid] 100 mg capsule 100 mg PO Q12H 7 Days Qty: 14 0RF Rx Instructions: must administer with a meal/food polyethylene glycol 3350 [Miralax] 17 gram/dose powder 17 g PO DAILY PRN (Reason: Constipation) carvedilol 3.125 mg tablet 3.125 mg PO BID amlodipine 10 mg tablet 10 mg PO DAILY fluticasone propionate 50 mcg/actuation spray,suspension 1 - 2 spray intranasal QAM fluticasone propionate [Flovent HFA] 110 mcg/actuation HFA aerosol inhaler 2 puff INHALATION iron dextran IV Patient Comments: last dose- last year acetaminophen [Tylenol 8 Hour] 650 mg tablet extended release 650 mg PO Q8H PRN (Reason: pain) Qty: 30 0RF oxycodone 5 mg tablet 5 mg PO Q6H PRN (Reason: severe pain (scale score 7-10)) Qty: 7 0RF Rx Instructions: Partial Fill upon patient request. cephalexin 500 mg capsule 500 mg PO QID 5 Days Qty: 20 0RF vitamin B complex [B Complex-Vitamin B12] Tablet 1 tab PO DAILY cholecalciferol (vitamin D3) 125 mcg (5,000 unit) capsule 125 mcg PO DAILY All Day Allergy (cetirizine) 10 mg capsule 10 mg PO DAILY PRN (Reason: Allergy Symptoms) albuterol sulfate [ProAir HFA] 90 mcg/actuation HFA aerosol inhaler 2 puff PO Q4-6H PRN (Reason: Shortness Of Breath Or Wheezing) omeprazole 20 mg capsule,delayed release(DR/EC) 20 mg PO DAILY Zepbound 2.5 mg/0.5 mL pen injector 10 mg subcut QWEEK Rx Instructions: for 4 weeks Interventions: ED Discharge Assessment Last Done: 06/30/25 13:59 Discharge Date/Time: 06/30/25 13:59 Print Language: Citizen Of [place]
--- NOTE | 2025-06-30 13:58 | PC.NURSE ---
luis enrique wrap applied to RUE prior to d/c.
[2025-06-30 13:59] VITALS: BP 139/79; PULSE 78; RESP 18; TEMP 36.2; O2SAT 98
--- OUTSIDE RECORDS SUMMARY | 2025-06-30 17:06 | XMS_ITS | Encounter Summary ---
Author Organization [employer] Address [address] [facility] [address], [place] [address] Care Team Providers Care Linux Server Engineer Name Role Phone Porfirio Goodman MD Primary Care Prov ider Luli Sosa RN Unavailable Unavailable Marino Wiseman Unavailable Jeanine Montague Unavailable Reason for Visit * Reason Comments Med Refill Encounter Details Date Type Department Care Team ([facility] st Contact Info) Description 12/17/2022 Refill [facility] MED & PEDS [address] [place], [place] [phone] Porfirio Goodman MD [address] [place], [place] [phone] Post-nasal drip Social History Tobacco Use Types [...] Care Team (Late st Contact Info) Description 08/08/2025 9:00 AM EST Office Visit [facility] MED & PEDS [address] [place] [address] Porfirio Goodman MD [address] [place] [address] documented as of this encounter Visit Diagnoses Diagnosis Post-nasal drip Postnasal drip documented in this encounter Care Teams Linux Server Engineer Relationship Specialty Start Date End Date Porfirio Goodman MD [address] [place] [address] PCP - General Internal Medicine 12/05/19 Luli Sosa RN [address] [place] [address] Registered Nurse Family Medicine 12/12/24 12/12/24 Marino Wiseman 12/12/24 12/12/24 Jeanine Montague 02/23/25 Amber Mittal Front Office HelpCash Application Clerk 04/20/24 documented as of this encounter
--- OUTSIDE RECORDS SUMMARY | 2025-06-30 17:06 | XMS_ITS | Encounter Summary ---
Author Organization [employer] Address [address] [place] [address] Care Team Providers Care Oil Laboratory Analyst Name Role Phone Porfirio Goodman MD Primary Care Prov ider Luli Sosa RN Unavailable Unavailable Marino Wiseman Unavailable Jeanine Montague Unavailable Reason for Visit * Reason Onset Date Comments Med Refill 11/09/2024 Encounter Details Date Type Department Care Team ([facility] st Contact Info) Description 11/09/2024 Refill [facility] MED & PEDS [address] [place], [place] [phone] Porfirio Goodman MD [address] [place] [address] Social History Tobacco Use Types Packs/Day Years [...] Description 08/08/2025 9:00 AM EST Office Visit [facility] MED & PEDS [address] [place] [address] Porfirio Goodman MD [address] [place] [address] documented as of this encounter Visit Diagnoses Not on filedocumented in this encounter Care Teams Oil Laboratory Analyst Relationship Specialty Start Date End Date Porfirio Goodman MD [address] [place] [address] PCP - General Internal Medicine 12/05/19 Luli Sosa RN [address] [place] [address] Registered Nurse Family Medicine 12/12/24 12/12/24 Marino Wiseman 12/12/24 12/12/24 Jeanine Montague 02/23/25 Amber Mittal Copy Machine OperatorHot Worker 04/20/24 documented as of this encounter
--- OUTSIDE RECORDS SUMMARY | 2025-06-30 17:06 | XMS_ITS | Encounter Summary ---
Author Organization [employer] Address [address] [facility] 7 [place] [address] Care Team Providers Care Sole Stapler Welt Name Role Phone Porfirio Goodman MD Primary Care Prov ider Jeanine Montague Unavailable Reason for Visit * Reason Comments Med Refill Encounter Details Date Type Department Care Team ([facility] st Contact Info) Description 05/16/2025 Refill [facility] CH[facility] MED & PEDS [address] [place], [place] [phone] Porfirio Goodman MD [address] [place] [address] Social History Tobacco Use Types Packs/Day Years [...] Description 08/08/2025 9:00 AM EST Office Visit [facility] MED & PEDS [address] [place] [address] Porfirio Goodman MD [address] [place] [address] documented as of this encounter Visit Diagnoses Not on filedocumented in this encounter Care Teams Sole Stapler Welt Relationship Specialty Start Date End Date Porfirio Goodman MD [address] [place] [address] PCP - General Internal Medicine 12/05/19 Jeanine Montague 02/23/25 Amber Mittal Car Body MechanicVice President Industrial Relations 04/20/24 documented as of this encounter
--- OUTSIDE RECORDS SUMMARY | 2025-06-30 17:06 | XMS_ITS | Encounter Summary ---
Author Organization [facility] Address [address] [place] [address] Phone Care Team Providers Care Wood Patternmaker Apprentice Name Role Phone Porfirio Goodman MD Primary Care Prov ider Encounter Details Date Type Department Care Team (Late st Contact Info) Description 01/15/2024 Procedure Pass [facility], [address] [address] Social History Tobacco Use Types Packs/Day Years [...] on filedocumented in this encounter Care Teams Wood Patternmaker Apprentice Relationship Specialty Start Date End Date Porfirio Goodman MD [address] [place] [address] PCP - General Internal Medicine 09/18/21 documented as of this encounter Additional Source Comments The information contained in this document represents components of the legal health record. It is not the complete legal health record.[facility]
--- OUTSIDE RECORDS SUMMARY | 2025-06-30 17:06 | XMS_ITS | Encounter Summary ---
Author Organization [employer] Address [address] [place] [address] Care Team Providers Care Line Cook Name Role Phone Porfirio Goodman MD Primary Care Prov ider Luli Sosa RN Unavailable Unavailable Marino Wiseman Unavailable Jeanine Montague Unavailable Reason for Visit * Reason Onset Date Comments Medication Question 08/02/2024 Encounter Details Date Type Department Care Team ([facility] st Contact Info) Description 08/02/2024 Telephone [facility] CHC MED & PEDS [address] [place], [place] [phone] Porfirio Goodman MD [address] [place], [place] [phone] Medication Question Social History Tobacco Use Types [...] Description 08/08/2025 9:00 AM EST Office Visit [facility] CH[facility] MED & PEDS [address] [place] [address] Porfirio Goodman MD [address] [place] [address] documented as of this encounter Visit Diagnoses Not on filedocumented in this encounter Care Teams Line Cook Relationship Specialty Start Date End Date Porfirio Goodman MD [address] [place] [address] PCP - General Internal Medicine 12/05/19 Luli Sosa RN [address] [place] [address] Registered Nurse Family Medicine 12/12/24 12/12/24 Marino Wiseman 12/12/24 12/12/24 Jeanine Montague 02/23/25 Amber Mittal Gang Supervisor Pipe LinesSupervisor Paint Department 04/20/24 documented as of this encounter
--- OUTSIDE RECORDS SUMMARY | 2025-06-30 17:06 | XMS_ITS | Encounter Summary ---
Author Organization [facility] Address [address] [place] [address] Phone Care Team Providers Care Neon Pumper Name Role Phone Porfirio Goodman MD Primary Care Prov ider Encounter Details Date Type Department Care Team (Late st Contact Info) Description 11/01/2021 Procedure Pass [facility], [address] [address] Social History Tobacco Use Types Packs/Day Years [...] on filedocumented in this encounter Care Teams Neon Pumper Relationship Specialty Start Date End Date Porfirio Goodman MD [address] [place] [address] PCP - General Internal Medicine 09/18/21 documented as of this encounter Additional Source Comments The information contained in this document represents components of the legal health record. It is not the complete legal health record.[facility]
--- OUTSIDE RECORDS SUMMARY | 2025-06-30 17:06 | XMS_ITS | Encounter Summary ---
Author Organization [facility] Address [address] [facility] [address] [place] [address] Phone Care Team Providers Care Inside Sales Advisor Name Role Phone Porfirio Goodman MD Primary Care Prov ider Encounter Details Date Type Department Care Team (Late st Contact Info) Description 12/29/2023 Transcribe Orders Virtual Department [address] [place] [address] Corey Carmona PA [address] [place] [address] Other spondylosis with radiculopathy, lumbosacral region (Primary [...] Primary documented in this encounter Care Teams Inside Sales Advisor Relationship Specialty Start Date End Date Porfirio Goodman MD [address] [place] [address] PCP - General Internal Medicine 09/18/21 documented as of this encounter Additional Source Comments The information contained in this document represents components of the legal health record. It is not the complete legal health record.[facility]
--- OUTSIDE RECORDS SUMMARY | 2025-06-30 17:06 | XMS_ITS ---
Author Organization [employer] Address [address] [place] [address] Care Team Providers Care University Registrar Name Role Phone Porfirio Goodman MD Primary Care Prov ider Jeanine Montague Unavailable CHW Complex Status:Outreach In Progress (Enrolling) Start date:02/23/2025 Enrollment reason:ADT Feed Overview CP Assigned Patient- Pt went to [facility] ED on 02/22/25. Case Team Name Relationship Phone Jeanine Montague(Responsible Staff) [phone] Continued Care and Services Coordination
--- OUTSIDE RECORDS SUMMARY | 2025-06-30 17:06 | XMS_ITS | Encounter Summary ---
Author Organization [employer] Address 75 [facility] [address], [place] [address] Care Team Providers Care Crm Analyst Name Role Phone Porfirio Goodman MD Primary Care Prov ider Luli Sosa RN Unavailable Unavailable Marino Wiseman Unavailable Jeanine Montague Unavailable Reason for Visit * Reason Onset Date Comments Results 09/22/2022 Encounter Details Date Type Department Care Team (Late st Contact Info) Description 09/22/2022 Telephone [facility] MEDICINE [address] [place] [address] Porfirio Goodman MD 505 [place] [address] Results Social History Tobacco Use Types Packs/Day [...] requesting XR results please contact pt at [phone] documented in this encounter Plan of Treatment Upcoming Encounters Date Type Department Care Team (Late st Contact Info) Description 08/08/2025 9:00 AM EST Office Visit [facility] MED & PEDS 505 [place] [address] Porfirio Goodman MD [address] [place] [address] documented as of this encounter Visit Diagnoses Not on filedocumented in this encounter Care Teams Crm Analyst Relationship Specialty Start Date End Date Porfirio Goodman MD [address] [place] [address] PCP - General Internal Medicine 12/05/19 Luli Sosa RN [address] [place] [address] Registered Nurse Family Medicine 12/12/24 12/12/24 Marino Wiseman 12/12/24 12/12/24 Jeanine Montague 02/23/25 Amber Mittal It Compliance AnalystStorage Management Consultant 04/20/24 documented as of this encounter
--- OUTSIDE RECORDS SUMMARY | 2025-06-30 17:06 | XMS_ITS | Encounter Summary ---
Author Organization [employer] Address 75 [facility] [place] [address] Care Team Providers Care Scheduler Maintenance Name Role Phone Porfirio Goodman MD Primary Care Prov ider Luli Sosa RN Unavailable Unavailable Marino Wiseman Unavailable Jeanine Montague Unavailable Reason for Visit * Reason Onset Date Comments Prior Authorization 08/09/2024 Encounter Details Date Type Department Care Team ([facility] st Contact Info) Description 08/09/2024 Telephone [facility] CH[facility] MED & PEDS [address] [place], [place] [phone] Porfirio Goodman MD [address] [place], [place] [phone] Prior Authorization Social History Tobacco Use Types [...] Upcoming Encounters Date Type Department Care Team ([facility] st Contact Info) Description 08/08/2025 9:00 AM EST Office Visit [facility] CHC MED & PEDS 505 [place] [address] Porfirio Goodman MD [address] [place], [place] [phone] documented as of this encounter Visit Diagnoses Not on filedocumented in this encounter Care Teams Scheduler Maintenance Relationship Specialty Start Date End Date Porfirio Goodman MD 505 [place] [address] PCP - General Internal Medicine 12/05/19 Luli Sosa RN 505 [place] [address] Registered Nurse Family Medicine 12/12/24 12/12/24 Marino Wiseman 12/12/24 12/12/24 Jeanine Montague 02/23/25 Amber Mittal Electronic Lab TechnicianSoftware Development Leader 04/20/24 documented as of this encounter
--- OUTSIDE RECORDS SUMMARY | 2025-06-30 17:06 | XMS_ITS | Encounter Summary ---
Author Organization [employer] Address 75 [facility] 7 [place] [address] Care Team Providers Care Grain Trader Name Role Phone Porfirio Goodman MD Primary Care Prov ider Luli Sosa RN Unavailable Unavailable Marino Wiseman Unavailable Jeanine Montague Unavailable Encounter Details Date Type Department Care Team (Late st Contact Info) Description 08/18/2024 Orders Only [facility] CHC MED & PEDS [address] [place], [place] [phone] Porfirio Goodman MD 505 [place], [place] [phone] Social History Tobacco Use Types Packs/Day Years [...] Upcoming Encounters Date Type Department Care Team ([facility] st Contact Info) Description 08/08/2025 9:00 AM EST Office [facility] MED & PEDS [address] [place] [address] Porfirio Goodman MD 505 [place] [address] documented as of this encounter Visit Diagnoses Not on filedocumented in this encounter Care Teams Grain Trader Relationship Specialty Start Date End Date Porfirio Goodman MD [address] [place] [address] PCP - General Internal Medicine 12/05/19 Luli Sosa RN [address] [place] [address] Registered Nurse Family Medicine 12/12/24 12/12/24 Marino Wiseman 12/12/24 12/12/24 Jeanine Montague 02/23/25 Amber Mittal Mechanic And WelderFlight Controls Engineer 04/20/24 documented as of this encounter
--- OUTSIDE RECORDS SUMMARY | 2025-06-30 17:06 | XMS_ITS | Encounter Summary ---
Author Organization [employer] Address [address] [place] [place] [address] Care Team Providers Care Grounds Cleaner Name Role Phone Porfirio Goodman MD Primary Care Prov ider Luli Sosa RN Unavailable Unavailable Marino Wiseman Unavailable Jeanine Montague Unavailable Reason for Visit * Reason Onset Date Comments Med Refill 12/07/2024 Encounter Details Date Type Department Care Team ([facility] st Contact Info) Description 12/07/2024 Refill [facility] CHC MED & PEDS 505 [place], [place] [phone] oPrfirio Goodman MD 505 [place] [address] Social History Tobacco Use Types Packs/Day Years [...] Description 08/08/2025 9:00 AM EST Office Visit [facility] MED & PEDS [address] [place] [address] Porfirio Goodman MD 505 [place] [address] documented as of this encounter Visit Diagnoses Not on filedocumented in this encounter Care Teams Grounds Cleaner Relationship Specialty Start Date End Date Porfirio Goodman MD 505 [place] [address] PCP - General Internal Medicine 12/05/19 Luli Sosa RN 505 [place] [address] Registered Nurse Family Medicine 12/12/24 12/12/24 Marino Wiseman 12/12/24 12/12/24 Jeanine Montague 02/23/25 Amber Mittal Switchman SupervisorManufacturers Agent 04/20/24 documented as of this encounter
--- OUTSIDE RECORDS SUMMARY | 2025-06-30 17:06 | XMS_ITS | Clinical Summary ---
Author Organization [facility] Address [address] [place] [address] Phone Care Team Providers Care Floor Director Name Role Phone Porfirio Goodman MD [...] Active ferrous sulfate 325 mg (65 mg [place] iron) tablet Take 1 tablet by mouth [...] (2 of 2 - PCV) 2025 08/01/2009 RSV VACCINE (1 - Risk 50-74 years 1-dose series) 2025 ZOSTER VACCINES (1 of 2) 2025 COVID-19 [...] ACO C3 ACO C3 ACO C3 ACO [facility] C3 ACO Care Teams Floor Director Relationship Specialty Start Date End Date Porfirio Goodman MD [address] [place] [address] PCP - General Internal Medicine 09/18/21 Additional Source Comments The information contained in this document represents components of the legal health record. It is not the complete legal health record.[facility]
--- OUTSIDE RECORDS SUMMARY | 2025-06-30 17:06 | XMS_ITS | Encounter Summary ---
Author Organization [email or web address] Address 75 [facility] 7 [place] [address] Care Team Providers Care Tourist Guide Name Role Phone Porfirio Goodman MD Primary Care Prov ider Luli Sosa RN Unavailable Unavailable Marino Wiseman Unavailable Jeanine Montague Unavailable Encounter Details Date Type Department Care Team (Late st Contact Info) Description 10/19/2024 Telephone [facility] MEDICINE [address] [place] [address] Porfirio Goodman MD 505 [place] [address] Social History Tobacco Use Types Packs/Day Years [...] hasn't received a call. Contact pt at [phone] documented in this encounter Plan of Treatment Upcoming Encounters Date Type Department Care Team (Late st Contact Info) Description 08/08/2025 9:00 AM EST Office Visit [facility] MED & PEDS [address] [place] [address] Porfirio Goodman MD [address] [place] [address] documented as of this encounter Visit Diagnoses Not on filedocumented in this encounter Care Teams Tourist Guide Relationship Specialty Start Date End Date Porfirio Goodman MD [address] [place] [address] PCP - General Internal Medicine 12/05/19 Luli Sosa RN [address] [place] [address] Registered Nurse Family Medicine 12/12/24 12/12/24 Marino Wiseman 12/12/24 12/12/24 Jeanine Montague 02/23/25 Amber Mittal Pipe TesterCall Center Operator 04/20/24 documented as of this encounter
--- OUTSIDE RECORDS SUMMARY | 2025-06-30 17:06 | XMS_ITS | Encounter Summary ---
Author Organization [employer] Address [address] [facility] [address] [place] [address] Care Team Providers Care Plug And Mold Finisher Name Role Phone Porfirio Goodman MD Primary Care Prov ider Luli Sosa RN Unavailable Unavailable Marino Wiseman Unavailable Jeanine Montague Unavailable Encounter Details Date Type Department Care Team (Late st Contact Info) Description 08/25/2024 Orders Only [facility] MEDICINE [address] [place] [address] Provider, MD Russell Social History Tobacco Use [...] Upcoming Encounters Date Type Department Care Team ([facility] st Contact Info) Description 08/08/2025 9:00 AM EST Office Visit [facility] MED & PEDS 505 [place] [address] Porfirio Goodman MD 505 [place] [address] documented as of this encounter Procedures Procedure Name Priority Date/Time Associated Diagnosis Comments MAMMOGRAPHY Routine 05/04/2024 10:27 AM EDT documented in this encounter Results * Hm Mammography (05/04/2024 10:27 AM EDT) Anatomical Region Laterality Modality Other Historical Provider HEALTH MAINTENANCE Final Result documented in this encounter Visit Diagnoses Not on filedocumented in this encounter Care Teams Plug And Mold Finisher Relationship Specialty Start Date End Date Porfirio Goodman MD [address] [place] [address] PCP - General Internal Medicine 12/05/19 Luli Sosa, AYLIN [address] [place] [address] Registered Nurse Family Medicine 12/12/24 12/12/24 Marino Wiseman 12/12/24 12/12/24 Jeanine Montague 02/23/25 Amber Mittal Theatrical Scenic DesignerDeputy Register Of Deeds 04/20/24 documented as of this encounter
--- OUTSIDE RECORDS SUMMARY | 2025-06-30 17:10 | XMS_ITS | Encounter Summary ---
Author Organization [employer] Address 75 [facility] 7 [place] [address] Care Team Providers Care Merchandise Processor Name Role Phone Porfirio Goodman MD Primary Care Prov ider Luli Sosa RN Unavailable Unavailable Marino Wiseman Unavailable Jeanine Montague Unavailable Reason for Visit * Reason Onset Date Comments Nurse Triage 02/29/2024 Encounter Details Date Type Department Care Team (Late st Contact Info) Description 02/29/2024 Telephone [facility] MEDICINE [address] [place] [address] Porfirio Goodman MD [address] [place] [address] Nurse Triage Social History Tobacco Use Types [...] answer. Left voice message x2 to call [facility] triage line at [phone] when Pt gets an opportunity. * Telephone Encounter - Mamie Goncalves - 02/29/2024 9:14 AM EDT Symptom: Fall Outcome: Schedule an appointment to be seen within 24 hours Reason: body aches The caller accepted this outcome documented in this encounter Plan of Treatment Upcoming Encounters Date Type Department Care Team (Late st Contact Info) Description 08/08/2025 9:00 AM EST Office Visit [facility] MED & PEDS [address] [place] [address] Porfirio Goodman MD [address] [place] [address] documented as of this encounter Visit Diagnoses Not on filedocumented in this encounter Care Teams Merchandise Processor Relationship Specialty Start Date End Date Porfirio Goodman MD 505 [place] [address] PCP - General Internal Medicine 12/05/19 Luli Sosa, AYLIN 505 [place] [address] Registered Nurse Family Medicine 12/12/24 12/12/24 Marino Wiseman 12/12/24 12/12/24 Jeanine Montague 02/23/25 Amber Mittal Collector Of Internal RevenueDust Operator 04/20/24 documented as of this encounter
--- OUTSIDE RECORDS SUMMARY | 2025-06-30 17:10 | XMS_ITS | Encounter Summary ---
Author Organization [employer] Address [address] [place] [address] Care Team Providers Care Vision Therapist Name Role Phone Porfirio Goodman MD Primary Care Prov ider Luli Sosa RN Unavailable Unavailable Marino Wiseman Unavailable Jeanine Montague Unavailable Encounter Details Date Type Department Care Team (Latest Contact Info) Description 09/09/2021 Abstract [facility] CONVERSIONS Dental, Provider, DDS Social History [...] Description 08/08/2025 9:00 AM EST Office Visit [facility] CHC MED & PEDS [address] [place] [address] Porfirio Goodman MD [address] [place], [place] [phone] documented as of this encounter Visit Diagnoses Not on filedocumented in this encounter Care Teams Vision Therapist Relationship Specialty Start Date End Date Porfirio Goodman MD [address] [place] [address] PCP - General Internal Medicine 12/05/19 Llui Sosa, AYLIN [address] [place] [address] [place] [address] Registered Nurse Family Medicine 12/12/24 12/12/24 Marino Wiseman 12/12/24 12/12/24 Jeanine Montague 02/23/25 Amber Mittal Grid OperatorCardiac Monitor 04/20/24 documented as of this encounter
--- OUTSIDE RECORDS SUMMARY | 2025-06-30 17:12 | XMS_ITS | Encounter Summary ---
Author Organization [employer] Address 75 [facility] 7 [place] [address] Care Team Providers Care Pilot Plant Operator Helper Name Role Phone Porfirio Goodman MD Primary Care Prov ider Luli Sosa RN Unavailable Unavailable Marino Wiseman Unavailable Jeanine Montague Unavailable Reason for Visit * Reason Comments Med Refill Encounter Details Date Type Department Care Team ([facility] st Contact Info) Description 04/27/2024 Refill [facility] CHC MED & PEDS 505 [place], [place] [phone] Porfirio Goodman MD [address] [place] [address] Social History Tobacco Use Types Packs/Day Years [...] 08/08/2025 9:00 AM EST Office Visit [facility] MED & PEDS 505 [place] [address] Porfirio Goodman MD [address] [place] [address] documented as of this encounter Visit Diagnoses Not on filedocumented in this encounter Care Teams Pilot Plant Operator Helper Relationship Specialty Start Date End Date Porfirio Goodman MD [address] [place] [address] PCP - General Internal Medicine 12/05/19 Luli Sosa RN [address] [place] [address] Registered Nurse Family Medicine 12/12/24 12/12/24 Marino Wiesman 12/12/24 12/12/24 Jeanine Montague 02/23/25 Amber Mittal Building ManagerJava Performance Engineer 04/20/24 documented as of this encounter
--- OUTSIDE RECORDS SUMMARY | 2025-06-30 17:12 | XMS_ITS | Encounter Summary ---
Author Organization [employer] Address 75 [facility] 7 [place] [address] Care Team Providers Care Animal Behaviorist Name Role Phone Porfirio Goodman MD Primary Care Prov ider Luli Sosa RN Unavailable Unavailable Marino Wiseman Unavailable Jeanine Montague Unavailable Reason for Visit * Reason Comments Med Refill Encounter Details Date Type Department Care Team ([facility] st Contact Info) Description 04/27/2024 Refill [facility] CHC MED & PEDS [address] [place], [place] [phone] Porfirio Goodman MD 505 [place] [address] Social History Tobacco Use Types Packs/Day Years [...] Description 08/08/2025 9:00 AM EST Office Visit [facility] MED & PEDS [address] [place] [address] Porfirio Goodman MD [address] [place] [address] documented as of this encounter Visit Diagnoses Not on filedocumented in this encounter Care Teams Animal Behaviorist Relationship Specialty Start Date End Date Porfirio Goodman MD 505 [place] [address] PCP - General Internal Medicine 12/05/19 Luli Sosa RN [address] [place] [address] Registered Nurse Family Medicine 12/12/24 12/12/24 Mraino Wiseman 12/12/24 12/12/24 Jeanine Montague 02/23/25 Amber Mittal Stitch WelderMolded Candles Wicker 04/20/24 documented as of this encounter
--- OUTSIDE RECORDS SUMMARY | 2025-06-30 17:12 | XMS_ITS | Encounter Summary ---
Author Organization [employer] Address 75 [facility] 7 [place] [address] Care Team Providers Care Gluing Crew Leader Name Role Phone Porfirio Goodman MD Primary Care Prov ider Luli Sosa RN Unavailable Unavailable Marino Wiseman Unavailable Jeanine Montague Unavailable Reason for Visit * Reason Onset Date Comments Med Refill 01/11/2024 Encounter Details Date Type Department Care Team (Late st Contact Info) Description 01/11/2024 Refill [facility] WALK[facility]IN CENTER [address] [place], [place] [phone] Doug Vargas MD [address] [place] [address] Abdominal wall pain Social History Tobacco Use [...] Upcoming Encounters Date Type Department Care Team ([facility] st Contact Info) Description 08/08/2025 9:00 AM EST Office Visit [facility] MED & PEDS [address] [place] [address] Porfirio Goodman MD [address] [place] [address] documented as of this encounter Visit Diagnoses Diagnosis Abdominal wall pain Abdominal pain, unspecified site documented in this encounter Care Teams Gluing Crew Leader Relationship Specialty Start Date End Date Porfirio Goodman MD [address] [place] [address] PCP - General Internal Medicine 12/05/19 Luli Soas, AYLIN [address] [place] [address] Registered Nurse Family Medicine 12/12/24 12/12/24 Marino Wiseman 12/12/24 12/12/24 Jeanine Montague 02/23/25 Amber Mittal Plumber And TinnerRn Support Services 04/20/24 documented as of this encounter
--- OUTSIDE RECORDS SUMMARY | 2025-06-30 17:12 | XMS_ITS | Encounter Summary ---
Author Organization [employer] Address 75 [facility] [place] [address] Care Team Providers Care Forge Tender Name Role Phone Porfirio Goodman MD Primary Care Prov ider Luli Sosa RN Unavailable Unavailable Marino Wiseman Unavailable Jeanine Montague Unavailable Reason for Visit * Reason Onset Date Comments Med Refill 06/27/2024 Encounter Details Date Type Department Care Team ([facility] st Contact Info) Description 06/27/2024 Refill [facility] CHC MED & PEDS 505 [place], [place] [phone] Porfirio Goodman MD [address] [place] [address] Social History Tobacco Use Types Packs/Day Years [...] Description 08/08/2025 9:00 AM EST Office Visit [facility] MED & PEDS [address] [place] [address] Porfirio Goodman MD [address] [place] [address] documented as of this encounter Visit Diagnoses Not on filedocumented in this encounter Care Teams Forge Tender Relationship Specialty Start Date End Date Porfirio Goodman MD [address] [place] [address] PCP - General Internal Medicine 12/05/19 Luli Sosa RN [address] [place] [address] Registered Nurse Family Medicine 12/12/24 12/12/24 Marino Wiseman 12/12/24 12/12/24 Jeanine Montague 02/23/25 Amber Mittal Metal Patternmaker ApprenticeCasualty Claim Adjuster 04/20/24 documented as of this encounter
--- OUTSIDE RECORDS SUMMARY | 2025-06-30 17:12 | XMS_ITS | Encounter Summary ---
Author Organization [employer] Address 75 [facility] 7 [place] [address] Care Team Providers Care Security Infrastructure Engineer Name Role Phone Porfirio Goodman MD Primary Care Prov ider Luli Sosa RN Unavailable Unavailable Marino Wiseman Unavailable Jeanine Montague Unavailable Encounter Details Date Type Department Care Team (Late st Contact Info) Description 10/29/2023 Orders Only [facility] CHC MED & PEDS [address] [place], [place] [phone] Ambika Webster MD 505 [place] [address] Low vitamin D level (Primary Dx); Other [...] Description 08/08/2025 9:00 AM EST Office Visit [facility] CHC MED & PEDS [address] [place] [address] Porfirio Goodman MD [address] [place] [address] Scheduled Orders Name Type Priority Associated Diagnoses Orde r Schedule Iron And Total Iron Binding Capacity Lab Routine Other iron deficiency anemia Expected: 10/29/2023, Expires: 10/28/2024 Ferritin Lab Routine Other iron deficiency anemia Expected: 10/29/2023, Expires: 10/28/2024 documented as of this encounter Visit Diagnoses Diagnosis Low vitamin D level- Primary Other iron deficiency anemia documented in this encounter Care Teams Security Infrastructure Engineer Relationship Specialty Start Date End Date Porfirio Goodman MD [address] [place] [address] PCP - General Internal Medicine 12/05/19 Luli Sosa, AYLIN [address] [place] [address] Registered Nurse Family Medicine 12/12/24 12/12/24 Marino Wiseman 12/12/24 12/12/24 Jeanine Montague 02/23/25 Abmer Mittal Foot Piece AssemblerBinder Technician 04/20/24 documented as of this encounter
--- OUTSIDE RECORDS SUMMARY | 2025-06-30 17:12 | XMS_ITS | Clinical Summary ---
Author Organization [employer] Address [address] [place] [address] 7 [place] [address] Care Team Providers Care Instructional Supervisor Name Role Phone Porfirio Goodman MD [...] reaction(s): unspecified Medications Flovent HFA 110 MCG/ACT inhalerIndicatio ns:Moderate persistent asthma without complication Inhale 2 puffs [...] 07/15/20 22 Active famotidine (Pepcid) 20 MG tabletIndication s:Other chest pain Take 1 tablet (20 mg) by mouth 2 times daily. 60 tablet 11 04/27/20 23 Active Diclofenac Sodium 1 % gel To apply to the affected area 3 times a day 100 g 06/17/20 23 Active cholecalciferol (Vitamin D-3) 25 MCG (1000 UT) tabletIndication s:Low vitamin D level Take 1 tablet (25 mcg) by mouth in the morning. 60 tablet 11 10/29/19 24 Active triamcinolone (Kenalog) 0.1 % ointment APPLY TOPICALLY TWICE DAILY X 1 WEEK TO RASH ON RIGHT FOOT 15 g 04/06/20 24 Active propranolol LA (Inderal LA) 60 MG 24 hr capsule Take 1 capsule (60 mg) by mouth Once per day. Do not crush, chew, or split. 30 capsule 11 07/04/20 24 025 Active amphetamine-dext roamphetamine (Adderall) 10 MG tablet Take 1 tablet (10 mg) by mouth 2 times daily. 60 tablet 11/18/19 25 Active fluticasone (Flonase) 50 MCG/ACT nasal sprayIndications :Post-nasal drip Administer 2 sprays into each nostril Once per day. Shake gently. Before first use, prime pump. After use, clean tip and replace cap. 48 g 3 12/09/19 25 Active fexofenadine (Saarh) 180 MG tablet Take 1 tablet (180 mg) by mouth Once per day. 90 tablet 3 12/09/19 25 026 Active meclizine (Antivert) 25 MG tablet Take 1 tablet (25 mg) by mouth if needed in the morning, at noon, in the evening, and at bedtime for dizziness. 60 tablet 1 12/09/19 25 026 Active Blood Pressure kit 1 kit Once per day. 1 kit 01/20/20 25 Active Ventolin HFA 108 (90 Base) MCG/ACT inhaler INHALE 2 PUFFS INTO THE LUNGS EVERY 2 TO 6 HOURS NEEDED 18 g 02/01/20 25 Active docusate sodium (Colace) 100 MG capsule TAKE ONE CAPSULE BY MOUTH TWICE DAILY NEEDED FOR CONSTIPATION 180 capsule 03/15/20 25 Active linaCLOtide (Linzess) 145 MCG capsule Take 1 capsule (145 mcg) by mouth before breakfast. Do not crush or chew. 30 capsule 11 03/17/20 25 026 Active methocarbamol (Robaxin) 750 MG tablet TAKE 1 TABLET BY MOUTH FOUR TIMES DAILY NEEDED 60 tablet 3 03/20/20 25 Active omeprazole (PriLOSEC) [address] capsuleIndicatio ns:Gastroesophag eal reflux disease without esophagitis TAKE 1 CAPSULE BY MOUTH EVERY DAY BEFORE A MEAL 90 capsule 03/30/20 25 Active ibuprofen 600 MG tablet Take 1 tablet (600 mg) by mouth every 6 (six) hours if needed for mild pain or fever. 40 tablet 1 03/30/20 25 026 Active Vit-Fe Fumarate-FA ( Vitamins) 28-0.8 MG tablet TAKE 1 TABLET BY MOUTH DAILY 90 tablet 04/27/20 25 Active Tirzepatide-Weig ht Management (Zepbound) 10 MG/0.5ML solution auto-injector Inject 0.5 mL (10 mg) under the skin 1 (one) time per week. INJECT ONE PEN (=10 MG) SUBCUTANEOUSLY ONCE A WEEK 2 mL 3 5 10:26 AM EST 05/24/20 25 Active hydroCHLOROthiaz munira (HYDRODiuril) 25 MG tabletIndication s:Essential hypertension TAKE 1 TABLET(25 MG) BY MOUTH IN THE MORNING 90 tablet 3 05/24/20 25 Active Multiple Vitamin (multivitamin) tablet Take 1 tablet by mouth Once per day. 90 tablet 3 06/01/20 25 Active capsaicin (Zostrix) 0.025 % creamIndications :Chronic pain of right thumb Apply topically 2 times daily. 56.6 g 06/02/20 24 025 Active Problems Problem Noted Date Diagnosed Date [...] cheduled for surgery with Dr. Puga at [facility] on 08/14/23. Assessment & Plan (07/27/2023 4:20 [...] Pt not opioid naive -Follow up with [facility] Ortho as scheduled -Cont with symptomatic management [...] added by Discern Expert Assessment & Plan (06/01/2025 9:44 AM EST): Patient is requesting ensure due to muscle mass loss due to sleeve gastrectomy and GLP1 injections, will refer to PT to recover strength, instructed importance of exercise Assessment & Plan (07/04/2024 2:13 PM EST): Patietient has lost over 40lbs, continue wegovy, diet and exercise encouraged PCOS (polycystic ovarian syndrome) 04/02/2018 Bipolar disorder in remission 04/02/2018 Leukocytosis 04/02/2018 Mild intermittent asthma 04/02/2018 Obstructive sleep apnea syndrome 04/02/2018 Pseudoseizures 04/02/2018 Overview (04/26/2023): Replace inactive dx PVCs (premature ventricular contractions) 2017 Encounters Date Type Department Care Team Description 06/01/2025 9:30 AM EST Telemedicine [facility] [address] [place] [address] Porfirio Goodman MD Muscle weakness (Primary Dx); Dietary counseling; Exercise counseling; Bipolar disorder in remission ([facility]); Mild intermittent asthma without complication; Obesity with body mass index 30 or greater 06/01/2025 Travel 05/31/2025 Telephone [facility] [address] [place] [address] Porfirio Goodman MD chart prep 05/22/2025 Refill [facility] [address] [place] [address] Porfirio Goodman MD Essential hypertension 05/21/2025 Refill [facility] [address] [place] [address] Porfirio Goodman MD 05/16/2025 Refill [facility] [address] [place] [address] Porfirio Goodman MD 04/26/2025 Refill [facility] [address] [place] [address] Porfirio Goodman MD 04/17/2025 Telephone [facility] [address] [place] [address] Porfirio Goodman MD Nurse Triage 04/10/2025 10:30 AM EDT Clinical Support [facility] [address] [place] [address] Clarice Gutierres RN Visit for suture removal [Z48.02] 04/10/2025 Travel 04/07/2025 Telephone [facility] [address] [place] [address] Porfirio Goodman MD Appointment Request from Last 3 Months Immunizations Immunization Administration [...] 03/30/2025 11:15 AM EDT Plan of Treatment Upcoming Encounters Date Type Department Care Team (Late st Contact Info) Description 08/08/2025 9:00 AM EST Office Visit [facility] [address] [place] [address] Porfirio Goodman MD [address] [place] [address] Health Maintenance Due Date Last Done Comments [...] Smear 10/29/2023 10/28/2018 SDOH Screening 01/31/2025 02/01/2024 RSV Patients and Patients Aged 60 years or older (1 - Risk 50-74 years 1-dose series) 2025 Zoster Vaccines (1 of 2) 2025 COVID-19 Vaccine ( - season) 2025 Influenza Vaccine (#1) 2025 8, 04/15/2013, 04/05/2012, Additional history exists Tobacco Screening 03/30/2026 03/30/2025 Mammogram 05/04/2026 05/04/2024 Lipid Panel 10/14/2027 10/13/2022, 02/06/2022 DTaP/Tdap/Td Vaccines (5 - Td or Tdap) 03/29/2035 03/29/2025, 04/26/2018, 01/14/2018, Additional history exists HIV Screening Completed 10/13/2022, 02/06/2022 Hepatitis C [...] Name Priority Date/Time Associated Diagnosis Comments XR KNEE 4+ VIEWS RIGHT Routine 04/17/2025 12:20 PM EDT MAMMOGRAPHY Routine 05/04/2024 10:27 AM EDT HEPATITIS [...] Relevant to Health Maintenance Results * XR Knee 4+ Views Right (04/17/2025 12:20 PM EDT) Anatomical Region Laterality Modality Lower Extremities, Knee Right [facility] 04/17/2025 12:2 0 PM EDT Narrative 04/17/2025 12:35 PM EDT [address] [address] XRay Report Signed Patient: Kyle Pool MR#: [id number] : 1975 Acct:[id number] Age/Sex: 50 / F ADM Date: 04/17/25 Loc: HO.ED Attending Dr: Ordering Physician: Kellee Her Date of Service: 04/17/25 Procedure(s): XR knee RT 4V Accession Number(s): [id number] cc: Porfirio Goodman MD; Kellee Her Reason for Exam: atraumatic R knee pain EXAMINATION: XR KNEE, RIGHT CLINICAL INFORMATION: atraumatic R knee pain COMPARISON: None available. TECHNIQUE: Four views of the right knee. FINDINGS: No fracture, dislocation, or suspicious bone lesion. Normal bone mineralization. Normal alignment. Minimal medial and patellofemoral compartment joint space narrowing. No significant joint effusion. Soft tissues appear normal. XR/XR knee RT 4V IMPRESSION: 1. No acute bony abnormalities of the right knee. No joint effusion. 2. 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 Electronically signed by: Otilio Campos MD 04/17/2025 12:32 PM EDT Dictated By: Otilio Campos MD Signed By: <Electronically signed by Otilio Campos MD in OV> 04/17/25 1232 DD/ 1220 TD/TT: 04/17/25 1226 Wood Cut Engraver: Procedure Note Donotuseinterpreter, Image - 04/17/2025 [place] [address] XRay Report Signed Patient: Kyle Pool AMR#: [id number] : 1975Acct:[id number] Age/Sex: 50 / FADM Date: 04/17/25 Loc: HO.ED Attending Dr: Ordering Physician: Kellee Her Date of Service: 04/17/25 Procedure(s): XR knee RT 4V Accession Number(s): [id number] cc: Porfirio Goodman MD; Kellee Her Reason for Exam: atraumatic R knee pain EXAMINATION: XR KNEE, RIGHT CLINICAL INFORMATION: atraumatic R knee pain COMPARISON: None available. TECHNIQUE: Four views of the right knee. FINDINGS: No fracture, dislocation, or suspicious bone lesion. Normal bone mineralization. Normal alignment. Minimal medial and patellofemoral compartment joint space narrowing. No significant joint effusion. Soft tissues appear normal. XR/XR knee RT 4V IMPRESSION: 1. No acute bony abnormalities of the right knee. No joint effusion. 2. 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 Electronically signed by: Otilio Campos MD 04/17/2025 12:32 PM EDT RP Dictated By: Otilio Campos MD Signed By: <Electronically signed by Otilio Campos MD in OV> 04/17/25 1232 DD/ 1220 TD/TT: 04/17/25 1226 Wood Cut Engraver: [facility] External Provider IMG XR PROCEDURES Final Result * Hm Mammography (05/04/2024 10:27 AM EDT) Anatomical Region Laterality Modality Other Historical Provider HEALTH MAINTENANCE Final Result * HIV-1 RNA, Quantitative, Real-Time PCR with Reflex to Genotype (RTI, PI, Integrase) (10/13/2022 11:02 AM EDT) HIV 1 RNA, QN PCR NOT DETECTED copies/mL [facility], HIV 1 RNA, QN PCR NOT DETECTED Log copies/mL [facility], Comment: REFERENCE RANGE: NOT DETECTED copies/mL NOT DETECTED Log copies/mL This test was performed using Real-Time Polymerase Chain Reaction. Reportable range is 20 to 10,000,000 copies/mL (1.30-7.00 Log copies/mL). 10/13/2022 11:0 2 AM EDT 10/13/2022 11:02 AM EDT Meenakshi Dyson INDUSTRIAL TECHNOLOGIST LAB BLOOD ORDERABLES Final Resu lt [facility] [address] [facility], [facility], [place] [address] [facility], [address] [place] [address] * Hepatitis Panel, General (10/13/2022 11:02 AM EDT) Hepatitis A Antibody Total NON-REACT PAUL NON-REACT PAUL [facility] [place] [employer] Comment: For additional information, please refer to http://Innolume.Etaphase/faq/DJM907 (This link is being provided for informational/ educational purposes only.) Hepatitis B Surface Antibody QL NON-REACT PAUL NON-REACT PAUL [facility] Hepatitis B Surface Ag NON-REACT PAUL NON-REACT PAUL [facility] [place] [facility] Hepatitis B Core Antibody Total NON-REACT PAUL NON-REACT PAUL [facility] Hepatitis C Antibody NON-REACT PAUL NON-REACT PAUL [facility] [place] [facility] Index 0.05 <1.00 [facility] [place] [facility] Comment: HCV antibody was non-reactive. There is no laboratory evidence of HCV infection. In most cases, no further action is required. However, if recent HCV exposure is suspected, a test for HCV RNA (test code 68431) is suggested. For additional information please refer to http://Innolume.Etaphase/faq/HFM99u2 (This link is being provided for informational/ educational purposes only.) 10/13/2022 11:0 2 AM EDT 10/13/2022 11:02 AM EDT Meenakshi Dyson INDUSTRIAL TECHNOLOGIST LAB BLOOD ORDERABLES Final Resu lt [facility] [address], [place] [address] [facility] [place] [employer] [facility] [address] [place] [address] * (ABNORMAL) Lipid Panel, Standard (10/13/2022 11:02 AM EDT) Cholesterol, Total 190 <200 mg/dL [facility] HDL Cholesterol 52 > OR = 50 mg/dL [facility] [place] [facility] Triglycerides 77 <150 mg/dL [facility] [place] [facility] LDL Cholesterol 121(H) mg/dL (calc) [facility] Comment: Reference range: <100 Desirable range <100 mg/dL for primary prevention; <70 mg/dL for patients with CHD or diabetic patients with > or = 2 CHD risk factors. LDL-C is now calculated using the Zeenat calculation, which is a validated novel method providing better accuracy than the Friedewald equation in the estimation of LDL-C. Ajay SS et al. KEYONA. 2013;310(19): 4392-5323 (http://education.ReadWave/faq/YNI791) Chol/HDLC Ratio 3.7 <5.0 (calc) [facility] Non-HDL Cholesterol 138(H) <130 mg/dL (calc) [facility] Comment: For patients with diabetes plus 1 major ASCVD risk factor, treating to a non-HDL-C goal of <100 mg/dL (LDL-C of <70 mg/dL) is considered a therapeutic option. Blood Venous blood specimen / Unknown 10/13/2022 11:02 AM EDT 10/13/2022 11:02 AM EDT Meenakshi Dyson INDUSTRIAL TECHNOLOGIST LAB BLOOD ORDERABLES Final Resu lt [facility] [address], [place] [address] [facility] [place] [facility] [address] [place] [address] * Pap Smear (10/28/2018) Pap Negative for intraephithelial lesion or malignancy Negative for intraephithelial lesion or malignancy, Other HPV Undetected Undetected, Indeterminate, Quantitative, Not Detected Historical Provider HEALTH MAINTENANCE Final Result from Last 3 Months or Most Recently Relevant to Health Maintenance Insurance [facility] C3 Care Teams Instructional Supervisor Relationship Specialty Start Date End Date Porfirio Goodman MD [address] [place] [address] PCP - General Internal Medicine 12/05/19 Jeanine Montague 02/23/25 Amber Mittal Network Services Project ManagerSchool Psychology Professor 04/20/24
--- OUTSIDE RECORDS SUMMARY | 2025-06-30 17:12 | XMS_ITS | Encounter Summary ---
Author Organization [employer] Address [address] [facility] [address] [place] [address] Care Team Providers Care Clothing Sales Assistant Name Role Phone Porfirio Goodman MD Primary Care Prov ider Luli Sosa RN Unavailable Unavailable Marino Wiseman Unavailable Jeanine Montague Unavailable Reason for Visit * Reason Onset Date Comments Results 06/27/2024 Encounter Details Date Type Department Care Team (Late st Contact Info) Description 06/27/2024 Telephone [facility] [address] [place] [address] Porfirio Goodman MD [address] [place] [address] Results Social History Tobacco Use Types Packs/Day [...] results: Labs Date when done: 06/22/24 Facility: [facility] Labs documented in this encounter Plan of Treatment Upcoming Encounters Date Type Department Care Team (Late st Contact Info) Description 08/08/2025 9:00 AM EST Office Visit [facility] [address] [place] [address] Porfirio Goodman MD [address] [place] [address] documented as of this encounter Visit Diagnoses Not on filedocumented in this encounter Care Teams Clothing Sales Assistant Relationship Specialty Start Date End Date Porfirio Goodman MD [address] [place] [address] PCP - General Internal Medicine 12/05/19 Luli Sosa RN [address] [place] [address] Registered Nurse Family Medicine 12/12/24 12/12/24 Marino Wiseman 12/12/24 12/12/24 Jeanine Montague 02/23/25 Amber Mittal Rehabilitation WorkerBrass Molder 04/20/24 documented as of this encounter
--- OUTSIDE RECORDS SUMMARY | 2025-06-30 17:13 | XMS_ITS | Encounter Summary ---
Author Organization [employer] Address [address] [facility] 7 [place] [address] Care Team Providers Care Shot Blaster Name Role Phone Porfirio Goodman MD Primary Care Prov ider Luli Sosa RN Unavailable Unavailable Marino Wiseman Unavailable Jeanine Montague Unavailable Encounter Details Date Type Department Care Team (Late st Contact Info) Description 06/05/[address] [facility] [address] [place], [place] [phone] Ambika Webster MD [address] [place] [address] Essential hypertension (Primary Dx) Social History Tobacco Use Types Packs/Day Years Used Date Smoking Tobacco: Never Passive Smoke Exposure: Never Smokeless Tobacco: Never Alcohol Use Standard Drinks/Week Comments Never 0 (1 standard drink = 0.6 oz pur e alcohol) Housing Stability Answer Date Recorded What is your housing situation today? I have mikeradha vyas 05/13/[address] you [...] Description 08/08/2025 9:00 AM EST Office Visit [facility] [address] [place] [address] Porfirio Goodman MD [address] [place] [address] documented as of this encounter Visit Diagnoses Diagnosis Essential hypertension- Primary Unspecified essential hypertension documented in this encounter Care Teams Shot Blaster Relationship Specialty Start Date End Date Porfirio Goodman MD [address] [place] [address] PCP - General Internal Medicine 12/05/19 Luli Sosa RN [address] [place] [address] Registered Nurse Family Medicine 12/12/24 12/12/24 Marino Wiseman 12/12/24 12/12/24 Jeanine Montague 02/23/25 Amber Mittal Regional Account ManagerTree Care Foreman 04/20/24 documented as of this encounter
--- OUTSIDE RECORDS SUMMARY | 2025-06-30 17:13 | XMS_ITS | Encounter Summary ---
Author Organization [facility] Address [address] [place] [address] Phone Care Team Providers Care Virtual Classroom Manager Name Role Phone Pcp, Unknown Primary Care Provider Unavailabl e Porfirio Goodman MD Primary Care Prov ider Encounter Details Date Type Department Care Team (Late st Contact Info) Description 05/16/2021 Procedure Pass [facility] Radiology [address] [place] [address] Social History Tobacco Use Types Packs/Day Years [...] on filedocumented in this encounter Care Teams Virtual Classroom Manager Relationship Specialty Start Date End Date Pcp, Unknown PCP - General 05/13/21 09/17/21 Porfirio Goodman MD [address] [place] [address] PCP - General Internal Medicine 09/18/21 documented as of this encounter Additional Source Comments The information contained in this document represents components of the legal health record. It is not the complete legal health record.[facility]
--- OUTSIDE RECORDS SUMMARY | 2025-06-30 17:13 | XMS_ITS | Encounter Summary ---
Author Organization [employer] Address [address] [facility] 7 [place] [address] Care Team Providers Care Sweeping Compound Blender Name Role Phone Porfirio Goodman MD Primary Care Prov ider Jeanine Montague Unavailable Reason for Visit * Reason Comments Med Refill Encounter Details Date Type Department Care Team ([facility] st Contact Info) Description 02/24/2025 Refill [facility]S [address] [place], [place] [phone] Porfirio Goodman MD [address] [place] [address] Social History Tobacco Use Types Packs/Day Years [...] Description 08/08/2025 9:00 AM EST Office Visit [facility] [address] [place] [address] Porfirio Goodman MD [address] [place] [address] documented as of this encounter Visit Diagnoses Not on filedocumented in this encounter Care Teams Sweeping Compound Blender Relationship Specialty Start Date End Date Porfirio Goodman MD [address] [place] [address] PCP - General Internal Medicine 12/05/19 Jeanine Montague 02/23/25 Amber Mittal Ocean Clam Boat CaptainPharmaceutical Development Technician 04/20/24 documented as of this encounter
--- OUTSIDE RECORDS SUMMARY | 2025-06-30 17:13 | XMS_ITS | Encounter Summary ---
Author Organization [employer] Address [address] [facility] [address] [place] [address] Care Team Providers Care Braille Transcriber Name Role Phone Porfirio Goodman MD Primary Care Prov ider Luli Sosa RN Unavailable Unavailable Marino Wiseman Unavailable Jeanine Montague Unavailable Reason for Visit * Reason Onset Date Comments Appointment Request 07/15/2023 Encounter Details Date Type Department Care Team (Late st Contact Info) Description 07/15/2023 Telephone [facility] [address] [place] [address] Porfirio Goodman MD [address] [place] [address] Appointment Request Social History Tobacco Use Types [...] 08/08/2025 9:00 AM EST Office Visit [facility]ED[facility] [address] [place] [address] Porfirio Goodman MD [address] [place] [address] documented as of this encounter Visit Diagnoses Not on filedocumented in this encounter Care Teams Braille Transcriber Relationship Specialty Start Date End Date Porfirio Goodman MD [address] [place] [address] PCP - General Internal Medicine 12/05/19 Luli Sosa RN [address] [place] [address] Registered Nurse Family Medicine 12/12/24 12/12/24 Marino Wiseman 12/12/24 12/12/24 Jeanine Montague 02/23/25 Amber Mittal Hammer SmithEngraving Supervisor 04/20/24 documented as of this encounter
--- OUTSIDE RECORDS SUMMARY | 2025-06-30 17:13 | XMS_ITS | Encounter Summary ---
Author Organization [employer] Address [address] [place] [address] [place], [place] [address] Care Team Providers Care Sawyer Helper Name Role Phone Porfirio Goodman MD Primary Care Prov ider Luli Sosa RN Unavailable Unavailable Marino Wiseman Unavailable Jeanine Montague Unavailable Reason for Visit * Reason Comments Med Refill Encounter Details Date Type Department Care Team ([facility] Contact Info) Description 03/17/2023 Refill [facility] MED & PEDS [address] [place], [place] [phone] Porfirio Goodman MD [address] [place], [place] [phone] Post-nasal drip Social History Tobacco Use Types [...] Upcoming Encounters Date Type Department Care Team ([facility] Contact Info) Description 08/08/2025 9:00 AM EST Office Visit [facility] [address] [place] [address] Porfirio Goodman MD [address] [place] [address] documented as of this encounter Visit Diagnoses Diagnosis Post-nasal drip Postnasal drip documented in this encounter Care Teams Sawyer Helper Relationship Specialty Start Date End Date Porfirio Goodman MD [address] [place] [address] PCP - General Internal Medicine 12/05/19 Luli Sosa RN [address] [place] [address] Registered Nurse Family Medicine 12/12/24 12/12/24 Marino Wiseman 12/12/24 12/12/24 Jeanine Montague 02/23/25 Amber Mittal Information StrategistIndustrial Relations Specialist 04/20/24 documented as of this encounter
--- OUTSIDE RECORDS SUMMARY | 2025-06-30 17:13 | XMS_ITS | Encounter Summary ---
Author Organization [employer] Address [address] [facility] 7 [place] [address] Care Team Providers Care Oracle Programmer Analyst Name Role Phone Porfirio Goodman MD Primary Care Prov ider Luli Sosa RN Unavailable Unavailable Marino Wiseman Unavailable Jeanine Montague Unavailable Encounter Details Date Type Department Care Team (Late st Contact Info) Description 04/28/2024 Orders Only [facility] MED & PEDS [address] [place], [place] [phone] Ambika Webster MD [address] [place] [address] Class 3 severe obesity due to excess [...] Description 08/08/2025 9:00 AM EST Office Visit [facility] MED & PEDS [address] [place] [address] Porfirio Goodman MD [address] [place] [address] documented as of this encounter Visit Diagnoses Diagnosis Class 3 severe obesity due to excess calories with serious comorbidity and body mass index (BMI) of 45.0 to 49.9 in adult (HCC)- Primary documented in this encounter Care Teams Oracle Programmer Analyst Relationship Specialty Start Date End Date Porfirio Goodman MD [address] [place] [address] PCP - General Internal Medicine 12/05/19 Luli Sosa RN [address] [place] [address] Registered Nurse Family Medicine 12/12/24 12/12/24 Marino Wiseman 12/12/24 12/12/24 Jeanine Montague 02/23/25 Amber Mittal Tour OperatorLumber Cutter 04/20/24 documented as of this encounter
--- OUTSIDE RECORDS SUMMARY | 2025-06-30 17:13 | XMS_ITS | Encounter Summary ---
Author Organization [employer] Address [address] [facility] [place] [address] Care Team Providers Care Resin Coater Name Role Phone Porfirio Goodman MD Primary Care Prov ider Luli Sosa RN Unavailable Unavailable Marino Wiseman Unavailable Jeanine Montague Unavailable Reason for Visit * Reason Onset Date Comments Call Back Request 07/24/2023 Encounter Details Date Type Department Care Team ([facility] Contact Info) Description 07/24/2023 Telephone [facility] CHC MED & PEDS [address] [place], [place] [phone] Porfirio Goodman MD [address] [place], [place] [phone] Call Back Request Social History Tobacco Use [...] [facility] MED [facility] PEDS [address] [place] [address] Porfirio Goodman MD [address] [place] [address] documented as of this encounter Visit Diagnoses Not on filedocumented in this encounter Care Teams Resin Coater Relationship Specialty Start Date End Date Porfirio Goodman MD [address] [place] [address] PCP - General Internal Medicine 12/05/19 Luli Sosa RN [address] [place] [address] Registered Nurse Family Medicine 12/12/24 12/12/24 Marino Wiseman 12/12/24 12/12/24 Jeanine Montague 02/23/25 Amber Mittal [employer] Sp[employer] MixerConcession Cashier 04/20/24 documented as of this encounter
--- OUTSIDE RECORDS SUMMARY | 2025-06-30 17:13 | XMS_ITS | Encounter Summary ---
Author Organization [employer] Address [address] [facility] 7 [place] [address] Care Team Providers Care Medical Assisting Instructor Name Role Phone Porfirio Goodman MD Primary Care Prov ider Luli Sosa RN Unavailable Unavailable Marino Wiseman Unavailable Jeanine Montague Unavailable Reason for Visit * Reason Comments Med Refill Encounter Details Date Type Department Care Team ([facility] st Contact Info) Description 04/26/2024 Refill [facility] CHC MED & PEDS [address] [place], [place] [phone] Porfirio Goodman MD [address] [place] [address] Social History Tobacco Use Types Packs/Day Years [...] Description 08/08/2025 9:00 AM EST Office Visit [facility] MED & PEDS [address] [place] [address] Porfirio Goodman MD [address] [place] [address] documented as of this encounter Visit Diagnoses Not on filedocumented in this encounter Care Teams Medical Assisting Instructor Relationship Specialty Start Date End Date Porfirio Goodman MD [address] [place] [address] PCP - General Internal Medicine 12/05/19 Luli Sosa RN [address] [place] [address] Registered Nurse Family Medicine 12/12/24 12/12/24 Marino Wiseman 12/12/24 12/12/24 Jeanine Montague 02/23/25 Amber Mittal Bell AttendantChildren'S Entertainer 04/20/24 documented as of this encounter
--- OUTSIDE RECORDS SUMMARY | 2025-06-30 17:13 | XMS_ITS | Clinical Summary ---
Author Organization [facility] it[facility] Address [address] [place] [address] Care Team Providers Care Social Work Assistant Name Role Phone Porfirio Goodman Primary Care Provide r Surgical History Surgery Date Site/Laterality Comments OTHER SURGICAL HISTORY PROCEDURE: OR SURGICAL ARTHROSCOPY LAURO W/CORACOACRM LIGM RLS; COMMENT: both shoulders GASTRIC BYPASS PROCEDURE: GASTRIC BYPASS FOR OBESIT; COMMENT: gastric sleeve OTHER SURGICAL HISTORY PROCEDURE: ANESTHESIA FOR SECTION OTHER SURGICAL HISTORY 08/08/2022 PROCEDURE: OR ARTHRODESIS SI JOINT PERCUTANEOUS/MIN INVASIVE; COMMENT: Right [...] Last Done Comments Breast Cancer Screening 1975 Colorectal Cancer Screening: Colonoscopy 1975 Hepatitis B Vaccines (1 of 3 - 19+ 3-dose series) 1994 Pneumococcal Vaccine: 50+ Ye ars (1 of 2 - PCV) 1994 Cervical Cancer Screening: P ap Smear 1996 HIV Screening 07/06/2022 Hepatitis C Screening 07/06/2022 Social Influencers of Health Screening 07/06/2022 Depression Screening 07/27/2024 RSV Immunization Adult Patie nts (1 - Risk 50-74 years 1-dose series) 2025 Zoster Vaccines (1 of 2) 2025 COVID-19 Vaccine (1 - 2024-2 6 season) 2025 Influenza Vaccine (#1) 2025 05/14/2018 [...] age to complete this topic Care Teams Social Work Assistant Relationship Specialty Start Date End Date Porfirio Goodman [address] [place] [address] PCP - General Internal Medicine 04/02/22
--- OUTSIDE RECORDS SUMMARY | 2025-06-30 17:13 | XMS_ITS | Encounter Summary ---
Author Organization [employer] Address [address] [facility] 7 [place] [address] Care Team Providers Care Latin American Studies Professor Name Role Phone Porfirio Goodman MD Primary Care Prov ider Luli Sosa RN Unavailable Unavailable Marino Wiseman Unavailable Jeanine Montague Unavailable Encounter Details Date Type Department Care Team (Late st Contact Info) Description 09/16/2024 Telephone [facility] MEDICINE [address] [place] [address] Porfirio Goodman MD [address] [place] [address] Social History Tobacco Use Types Packs/Day Years [...] Description 08/08/2025 9:00 AM EST Office Visit [facility] MED & PEDS [address] [place] [address] Porfirio Goodman MD [address] [place] [address] documented as of this encounter Visit Diagnoses Not on filedocumented in this encounter Care Teams Latin American Studies Professor Relationship Specialty Start Date End Date Porfirio Goodman MD [address] [place] [address] PCP - General Internal Medicine 12/05/19 Luli Sosa, AYLIN [address] [place] [address] Registered Nurse Family Medicine 12/12/24 12/12/24 Marino Wiseman 12/12/24 12/12/24 Jeanine Montague 02/23/25 Amber Mittal [facility] CounselorTrain Electronic Technician 04/20/24 documented as of this encounter
--- OUTSIDE RECORDS SUMMARY | 2025-06-30 17:13 | XMS_ITS | Encounter Summary ---
Author Organization [employer] Address [address] [place] [id number] Care Team Providers Care Strap Buckler Name Role Phone Porfirio Goodman MD Primary Care Prov ider Luli Sosa RN Unavailable Unavailable Marino Wiseman Unavailable Jeanine Montague Unavailable Reason for Visit * Reason Onset Date Comments Nurse Triage 04/27/2023 Encounter Details Date Type Department Care Team (Late st Contact Info) Description 04/27/2023 Telephone [facility] CHC MED & PEDS [address] [place], [place] [phone] Porfirio Goodman MD [address] [place], [place] [phone] Nurse Triage Social History Tobacco Use Types [...] is associated with that now. ASK apt [facility] 140pm 04/27/23 . Pt agrees with [...] like being stabbed. Please contact pt at [phone] documented in this encounter Plan of Treatment Upcoming Encounters Date Type Department Care Team ([facility] st Contact Info) Description 08/08/2025 9:00 AM EST Office Visit [facility] MED & PEDS [address] [place], [place] [phone] Porfirio Goodman MD [address] [place], [place] [phone] documented as of this encounter Visit Diagnoses Not on filedocumented in this encounter Care Teams Strap Buckler Relationship Specialty Start Date End Date Porfirio Goodman MD [address] [place] [address] PCP - General Internal Medicine 12/05/19 Luli Sosa RN [address] [place] [address] Registered Nurse Family Medicine 12/12/24 12/12/24 Marino Wiseman 12/12/24 12/12/24 Jeanine Montague 02/23/25 Amber Mittal Director AcuteGlass Technician 04/20/24 documented as of this encounter
--- OUTSIDE RECORDS SUMMARY | 2025-06-30 17:13 | XMS_ITS | Encounter Summary ---
Author Organization [employer] Address [address] [address] Care Team Providers Care Paint Tinter Name Role Phone Porfirio Goodman MD Primary Care Prov ider Luli Sosa RN Unavailable Unavailable Marino Wiseman Unavailable Jeanine Montague Unavailable Reason for Visit * Reason Onset Date Comments Error (VOID this visit) 04/27/2024 Encounter Details Date Type Department Care Team ([facility] st Contact Info) Description 04/27/2024 Telephone [facility] MED & PEDS [address] [place], [place] [phone] Porfirio Goodman MD [address] [place], [place] [phone] Error (VOID this visit) Social History Tobacco [...] - 04/28/2024 9:15 AM EDT TC to [facility] pharmacy, pharmacist states somehow wegovy appeared in their system as no longer having refills. Med queued to covering provider. * Telephone Encounter - Halima Rogers - 04/27/2024 4:11 PM EDT Tc from pt requesting to speak to nurse regarding medication Semaglutide-Weight Management (Wegovy)0.5 MG/0.5ML solution auto-injector. Refill was denied. Contact pt at [phone] documented in this encounter Plan of Treatment Upcoming Encounters Date Type Department Care Team (Late st Contact Info) Description 08/08/2025 9:00 AM EST Office Visit [facility] CHC MED & PEDS [address] [place] [address] Porfirio Goodman MD [address] [place] [address] documented as of this encounter Visit Diagnoses Not on filedocumented in this encounter Care Teams Paint Tinter Relationship Specialty Start Date End Date Porfirio Goodman MD [address] [place] [address] PCP - General Internal Medicine 12/05/19 Luli Sosa, AYLIN [address] [place] [address] Registered Nurse Family Medicine 12/12/24 12/12/24 Marino Wiseman 12/12/24 12/12/24 Jeanine Montague 02/23/25 Amber Mittal [employer] Location ManagerManager Of Pmo 04/20/24 documented as of this encounter
== END 2025-06-30 13:59 | disposition home or self-care (01) ==
PROVIDERS: Emergency Provider Emergency Medicine; PCP Internal Medicine
DX: S56.911A Strain of unspecified muscles, fascia and tendons at forearm level, right arm, initial encounter (principal); M79.601 Pain in right arm; X50.1XXA Overexertion from prolonged static or awkward postures, initial encounter; X50.0XXA Overexertion from strenuous movement or load, initial encounter; Y93.H1 Activity, digging, shoveling and raking; Y92.9 Unspecified place or not applicable; Y99.8 Other external cause status
CPT/HCPCS: 73080; 99282; 99283

== ENCOUNTER → 2025-06-30 12:40 | Outpatient (BNV) | payer MEDICAID, SELFPAY | PROVIDERS: Emergency Provider Emergency Medicine; Visit Provider Radiology Diagnostic Radiology | DX: M25.521 Pain in right elbow (principal) | CPT/HCPCS: 73080 ==